=== PATIENT | male | born 1940 | race Caucasian/White ===

== ENCOUNTER → 2016-07-10 | Outpatient (CLI) | payer BC ==
[~2016-07-10] MED LIST: AMOX500C3 PO; ASPI81TA28 PO; CEFD1CAP14 PO; DXY100 PO; LAMO100T PO; LAMO25TA PO; LSN5 PO; OXYC-57 PO; PLV75 PO
[2016-07-10 12:11] LABS: BASO % 0.9 %; BASO ABS # 0.06 K/uL (0-0.2); COMPLETE YES; EOS % 3.1 %; HEMATOCRIT 44.8 % (42-52); IG% 0.1 %; LYMPH % 31.9 %; LYMPH ABS # 2.15 K/uL (1.2-3.4); MEAN CELL VOLUME 92.9 fL (80-100); MEAN CORPUSCULAR HEMOGLOBIN 32.2 pg (25-34); MEAN CORPUSCULAR HGB CONC 34.6 g/dl (32-36); MEAN PLATELET VOLUME 10.2 fL (7.4-10.4); MONO % 10.8 %; NEUT % 53.2 %; PLATELET COUNT 176 K/uL (130-400); RED BLOOD COUNT 4.82 M/uL (4.7-6.1); WHITE BLOOD COUNT 6.74 K/uL (4.8-10.8)
[2016-07-10 12:24] LABS: ALT/SGPT 23 U/L (12-78); AST/SGOT 17 U/L (15-37); BLOOD UREA NITROGEN 15 mg/dl (7-18); BUN/CREATININE RATIO 12.6 (10-20); CALCIUM 8.8 mg/dl (8.5-10.1); CARBON DIOXIDE 30 mmol/L (21-32); CHLORIDE 105 mmol/L (98-107); GLUCOSE 82 mg/dl (70-99); SODIUM 141 mmol/L (136-145)
[2016-07-10 12:35] LABS: ALB/GLOB RATIO 1.3 (0.9-2); ALKALINE PHOSPHATASE 68 U/L (45-117); CHOLESTEROL 207 mg/dl (0-200); CHOLESTEROL/HDL RATIO 3.6; HDL CHOLESTEROL 57 mg/dl; LDL CHOLESTEROL CALCULATED 128 mg/dl; TRIGLYCERIDES 108 mg/dl (0-150); VERY LOW DENSITY LIPOPROT CALC 22 mg/dl
--- NOTE | 2016-07-15 12:33 | CODING QUERY MEDICAL NECESSITY ---
SUPPORTING DIAGNOSIS NEEDED A supporting diagnosis is required for the test/procedure performed on this patient in order for us to be reimbursed by the patient's insurance. Please provide a supporting diagnosis for the following test/procedure listed below next to the test name along with your signature. *If there is no additional diagnosis for this patient that would support the following test/procedure please document that below next to the test/procedure. Test(s)/Procedure(s) that require a supporting diagnosis: * PSA DIAGNOSIS: * DOS: 07/10/16 Provider Signature: Date: Thank you Tammy Reina [employer] Once completed, please kindly fax back to [phone] For questions please call [phone]
== END | disposition home or self-care (01) ==
LOC: C.LAB 11:33
PROVIDERS: ATTEND Internal Medicine Pulmonary Disease
DX: Z00.00 Encounter for general adult medical examination without abnormal findings (principal); E78.00 Pure hypercholesterolemia, unspecified; I63.9 Cerebral infarction, unspecified; F41.8 Other specified anxiety disorders; Z80.42 Family history of malignant neoplasm of prostate

== ENCOUNTER → 2016-07-25 | Outpatient (CLI) | payer BC ==
[2016-07-25 14:55] LABS: MANUAL MICROSCOPIC REQUIRED? NO; REVIEW REQ? NO; URINE APPEARANCE CLEAR (CLEAR); URINE BILIRUBIN NEG (NEG); URINE COLOR YELLOW; URINE EPITHELIAL CELL AUTO 0-5 /lpf (0-5); URINE NITRITE NEG (NEG); URINE SPECIFIC GRAVITY 1.017 (1.000-1.030); UROBILINOGEN NEG (NEG); ZZUR CULT IF INDIC CLEAN CATCH NO
== END | disposition home or self-care (01) ==
LOC: C.LAB1850 13:53
PROVIDERS: ATTEND Internal Medicine Pulmonary Disease
DX: N28.1 Cyst of kidney, acquired (principal); R35.0 Frequency of micturition

== ENCOUNTER → 2016-07-26 | Outpatient (CLI) | payer BC ==
--- NOTE | 2016-07-26 12:18 | DIAGNOSTIC IMAGING REPORT ---
ABDOMINAL ULTRASOUND COMPLETE HISTORY: N28.1 Renal cyst, [id number] Increased frequency of urination. COMPARISON: Chest abdomen pelvis CTA 03/02/2013. FINDINGS: Pancreas: The pancreas demonstrates a normal echotexture. Liver: The liver is echogenic consistent with fatty change. Gallbladder: There is a 5 mm polyp versus stone within the neck of the gallbladder. No gallbladder wall thickening. CBD: 5 mm. Kidneys: No hydronephrosis. There is a 2.1 cm cyst within the right kidney. Spleen: Normal in size. Aorta: Proximal and distal aorta are obscured by bowel. Mid abdominal aorta is normal in caliber. IVC: Patent. Miscellaneous: The bladder is unremarkable IMPRESSION: 1. A 2.1 cm right renal cyst. 2. A 5 mm stone versus polyp near the gallbladder neck. 3. Hepatic steatosis. Electronically signed by: Aldair Garland M.D. 07/26/2016 12:16 PM Dictated Date/Time: 07/26/2016 12:13 PM
== END | disposition home or self-care (01) ==
LOC: C.ULTR 09:32
PROVIDERS: ATTEND Internal Medicine Pulmonary Disease
DX: R35.0 Frequency of micturition (principal); N28.1 Cyst of kidney, acquired; K76.0 Fatty (change of) liver, not elsewhere classified

== ENCOUNTER 2016-09-11 21:58 | Inpatient (IN) | payer BC, OTHER ==
[~2016-09-11] VITALS: Ht 177.8 cm; Wt 80.0 kg
[~2016-09-11 21:58] MED LIST changes: -AMOX500C3 PO; -ASPI81TA28 PO; -CEFD1CAP14 PO; -LAMO25TA PO; -OXYC-57 PO
[2016-09-11] MEDS ORDERED: ASPI81TA28 PO (22:37)
[2016-09-11] MEDS ORDERED: AMOX500C3 PO (22:37)
[2016-09-11] MEDS ORDERED: SODIUM CHLORIDE 0.9% 1000ML 1,000 ML IV SCH (22:59)
[2016-09-11 23:21] LABS: BASO % 0.7 %; BASO ABS # 0.06 K/uL (0-0.2); COMPLETE YES; EOS % 2.6 %; HEMATOCRIT 44.2 % (42-52); IG% 0.2 %; LYMPH % 33.4 %; LYMPH ABS # 3.03 K/uL (1.2-3.4); MEAN CELL VOLUME 90.9 fL (80-100); MEAN CORPUSCULAR HEMOGLOBIN 32.3 pg (25-34); MEAN CORPUSCULAR HGB CONC 35.5 g/dl (32-36); MONO % 10.8 %; NEUT % 52.3 %; PLATELET COUNT 193 K/uL (130-400); RED BLOOD COUNT 4.86 M/uL (4.7-6.1); WHITE BLOOD COUNT 9.06 K/uL (4.8-10.8)
[2016-09-11 23:31] LABS: BLOOD UREA NITROGEN 19 mg/dl (7-18); BUN/CREATININE RATIO 17.6 (10-20); CALCIUM 9.2 mg/dl (8.5-10.1); CARBON DIOXIDE 29 mmol/L (21-32); CHLORIDE 105 mmol/L (98-107); GLUCOSE 110 mg/dl (70-99); SODIUM 142 mmol/L (136-145)
[2016-09-11 23:33] LABS: INR 0.9 (0.9-1.1); PARTIAL THROMBOPLASTIN RATIO 1.1; PROTHROMBIN TIME (PATIENT) 10.1 SECONDS (9.0-12.0)
[2016-09-12] MEDS ORDERED: MoRPHine SULFATE 2 MG/ML CARP IV PRN (00:30)
[2016-09-12] MEDS ORDERED: MAGNESIUM HYDROXIDE SUSP 30 ML UDC PO PRN (00:30)
[2016-09-12] MEDS ORDERED: NITROGLYCERIN 0.4 MG SL PER TAB CHARGE SL PRN (00:30)
[2016-09-12] MEDS ORDERED: POLYETHYLENE (MIRALAX) 17 GM PACK PO PRN (00:30)
[2016-09-12] MEDS ORDERED: ALUMINUM/MAGNESIUM/SIMETH (MAALOX MAX) 30 ML UDC PO PRN (00:30)
[2016-09-12] MEDS ORDERED: ACETAMINOPHEN 325 MG TAB PO PRN (00:30)
[2016-09-12] MEDS ORDERED: ONDANSETRON INJ 2 MG/ML 2 ML VIAL IV PRN (00:30)
--- NOTE | 2016-09-12 01:21 | History and Physical ---
History & Physical Date & Time of Service: Sep 12, 2016 at 01:00 Chief Complaint: Chest Pains, Left Arm Pain And Numbness Of Face Primary Care Physician: Keith Smith M.D. History of Present Illness Source: patient, family This is a 75 y/o M with a pmh of CVA, seizures, Neuropathy, Aortic valve replacement and aortic aneurysm repair who presents after an episode of left arm pain and left periorbital/temporal numbness lasting about an hour. He reports that he was sitting in a chair when this started and the pain moved up his left shoulder. He was concerned about a heart attack. Subsequently, his legs got weak. He denies chest pain, shortness of breath, new weakness of extremities, bowel/bladder incontinence, vision changes, dysphagia. He has a history of a CVA in 2012 and has had multiple visits thereafter for TIA symptoms. He also does have a vague history of seizures for which he was started on Keppra. He reports that he about a month ago, he reduced his dosing in an effort to feel less "loopy" but it made him more weak and unstable; he is now back on his regular dosing. He also was recently treated for an otitis media- just finished his course of amoxicillin. He was treated for Lyme's disease a few months ago. 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 Never smoker Alcohol occasional Past Medical/Surgical History Medical Problems: (1) Appendectomy Status: Resolved (2) Heart disease Status: Chronic (3) Hernia repair Status: Resolved (4) Left-eye droop Status: Chronic (5) PURE HYPERCHOLESTEROLEM Status: Chronic (6) Repair of rotator cuff by suture Status: Resolved (7) Seizure Status: Resolved (8) TIA (transient ischemic attack) Status: Resolved (9) TRANS CEREB ISCHEMIA NOS Status: Resolved (10) Weakness Status: Resolved Surgical Problems: (1) H/O aortic aneurysm repair Status: Resolved (2) H/O aortic valve replacement Status: Resolved Family History Cancer Heart disease Social History Smoking Status: Never Smoker Alcohol Use: occasionally Drug Use: none Marital Status: Housing status: lives with family Occupational Status: retired Immunizations History of Influenza Vaccine: Yes Influenza Vaccine Date: Feb 07, 2014 History of Tetanus Vaccine?: Unknown History of Pneumococcal: Unknown Pneumococcal Date: Mar 17, 2013 History of Hepatitis B Vaccine: Unknown Multi-Drug Resistant Organisms History of MDRO: No Allergies Coded Allergies: Codeine (Verified Adverse Reaction, Intermediate, GI SYMPTOMS, 09/11/16) Home Medications Scheduled Aspirin (Aspirin Ec), 81 MG PO QAM Cefdinir (Omnicef), 300 MG PO Q12H Lamotrigine (Lamictal), 100 MG PO BID Review of Systems Constitutional: + weakness, No chills, No fever, No sweats, No weight loss Eyes: No worsening of vision Respiratory: No cough, No dyspnea at rest, No dyspnea on exertion, No shortness of breath, No sputum, No wheezing Cardiovascular: No PND, No chest pain, No edema, No orthopnea Abdomen: + constipation, No diarrhea, No nausea, No pain, No vomiting Genitourinary - Male: No dysuria, No hematuria, No urinary frequency, No urinary urgency Neurologic: + numbness/tingling (left jillian-orbital), No balance problems, No paralysis, No vertigo, No weakness Physical Exam Vital Signs Date Time Temp Pulse Resp B/P Pulse Ox O2 Delivery O2 Flow Rate FiO2 09/11/16 23:54 70 20 127/80 95 Room Air 09/11/16 23:07 98 Room Air 09/11/16 22:32 76 09/11/16 22:14 98 Room Air 09/11/16 22:02 36.6 87 18 148/87 95 Room Air General Appearance: no apparent distress Head: normocephalic, atraumatic Eyes: normal inspection, PERRL, EOMI ENT: hearing grossly normal Neck: supple, no adenopathy, thyroid normal Respiratory/Chest: lungs clear, normal breath sounds, no respiratory distress, no accessory muscle use Cardiovascular: regular rate, rhythm, no edema, + systolic murmur (2/6) Abdomen/GI: normal bowel sounds, non tender, soft Back: normal inspection, no CVA tenderness, normal range of motion Extremities/Musculoskelatal: no calf tenderness Neurologic/Psych: 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 tested, no motor/sensory deficits, alert, normal reflexes, oriented x 3, + pertinent finding (left eyelid drooping - preexisting from previous stroke) Diagnostics Laboratory Results Results Past 24 Hours Test 09/11/16 22:33 09/11/16 22:35 Range/Units White Blood Count 9.06 4.8-10.8 K/uL Red Blood Count 4.86 4.7-6.1 M/uL Hemoglobin 15.7 14.0-18.0 g/dL Hematocrit 44.2 42-52 % Mean Corpuscular Volume 90.9 80-100 fL Mean Corpuscular Hemoglobin 32.3 25-34 pg Mean Corpuscular Hemoglobin Concent 35.5 32-36 g/dl Platelet Count 193 130-400 K/uL Mean Platelet Volume 10.0 7.4-10.4 fL Neutrophils (%) (Auto) 52.3 % Lymphocytes (%) (Auto) 33.4 % Monocytes (%) (Auto) 10.8 % Eosinophils (%) (Auto) 2.6 % Basophils (%) (Auto) 0.7 % Neutrophils # (Auto) 4.73 1.4-6.5 K/uL Lymphocytes # (Auto) 3.03 1.2-3.4 K/uL Monocytes # (Auto) 0.98 0.11-0.59 K/uL Eosinophils # (Auto) 0.24 0-0.5 K/uL Basophils # (Auto) 0.06 0-0.2 K/uL RDW Standard Deviation 45.8 36.4-46.3 fL RDW Coefficient of Variation 13.8 11.5-14.5 % Immature Granulocyte % (Auto) 0.2 % Immature Granulocyte # (Auto) 0.02 0.00-0.02 K/uL Prothrombin Time 10.1 9.0-12.0 SECONDS Prothromb Time International Ratio 0.9 0.9-1.1 Activated Partial Thromboplast Time 27.3 21.0-31.0 SECONDS Partial Thromboplastin Ratio 1.1 Sodium Level 142 136-145 mmol/L Potassium Level 4.0 3.5-5.1 mmol/L Chloride Level 105 98-107 mmol/L Carbon Dioxide Level 29 21-32 mmol/L Anion Gap 8.0 3-11 mmol/L Blood Urea Nitrogen 19 7-18 mg/dl Creatinine 1.10 0.60-1.40 mg/dl Est Creatinine Clear Calc Drug Dose 59.9 ml/min Estimated GFR () 75.7 Estimated GFR (Non- 65.3 BUN/Creatinine Ratio 17.6 10-20 Random Glucose 110 70-99 mg/dl Calcium Level 9.2 8.5-10.1 mg/dl Total Creatine Kinase 97 39-308 U/L Creatine Kinase MB 1.0 0.5-3.6 ng/ml Creatine Kinase MB Ratio 1.0 0-3.0 Troponin I < 0.015 0-0.045 ng/ml Impression Assessment and Plan This is a 75 y/o M who presents with left arm pain and left facial/periorbital numbness concerning for TIA vs. ACS vs. DVT vs. Infection (h/o of aortic valve repair, SBE?- no signs of active infection presently) etc Left arm pain, has subsided for the most part - Doppler USG - MRI pending - no acute findings on head CT - ECHO pending - Will hold on MRA/CT Angio- since he had this in February - Carotid USG- did have some plaques noted at the bifurcation on CTA - Also will trend Troponins x 3 - Admit to tele - Neuro checks - recheck lyme titers h/o seizures continue Keppra VTE Prophylaxis VTE Risk Assessment Done? Y/N: Yes Risk Level: Moderate Assessment and Plan Attending Addendum: I have physically seen and examined this patient, have directed their medical care, have supervised the medical residents activities, and agree with the H&P as noted above, with the following changes: NONE
[2016-09-12 01:22] LABS: LYME DISEASE AB IGG NEG (NEG)
[2016-09-12 01:25] LABS: LYME DISEASE AB IGM EQUIVOCAL (NEG)
--- NOTE | 2016-09-12 01:25 | EMERGENCY ROOM VISIT NOTE ---
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 Skin warm, pink, dry in triage. No noted s/s of distress. History of Present Illness The patient is a 75 year old male who presents to the Emergency Room with complaints of left-sided facial tingling and numbness with left bicep tingling and numbness and difficulty with ambulation for the past half hour. Patient had a stroke and TIAs in the past. Symptoms feel similar. Patient does have some left sided facial droop from his previous CVA. He follows with Dr. Parada from neurology. He is on a baby aspirin. Patient denies chest pain, dyspnea, fever, chills, diaphoresis, nausea, vomiting, diarrhea, abdominal pain, localized weakness. Review of Systems See HPI for pertinent positives & negatives. A total of 10 systems reviewed and were otherwise negative. Past Medical/Surgical History Medical Problems: (1) Appendectomy (2) Heart disease (3) Hernia repair (4) Left arm pain (5) Left face and left arm tingling (6) Left facial numbness (7) Left-eye droop (8) Left-sided weakness (9) Lyme disease (10) Neurological symptoms (11) PURE HYPERCHOLESTEROLEM (12) Repair of rotator cuff by suture (13) Seizure (14) TIA (transient ischemic attack) (15) TRANS CEREB ISCHEMIA NOS (16) Weakness Surgical Problems: (1) H/O aortic aneurysm repair (2) H/O aortic valve replacement Family History Cancer Heart disease Social History Smoking Status: Never Smoker Alcohol Use: occasionally Drug Use: none Marital Status: Housing Status: lives with family Occupation Status: retired Current/Historical Medications Scheduled Amoxicillin (Amoxil), 500 MG PO BID Aspirin (Aspirin Ec), 81 MG PO QAM Lamotrigine (Lamictal), 100 MG PO BID Allergies Coded Allergies: Codeine (Verified Adverse Reaction, Intermediate, GI SYMPTOMS, 09/11/16) Physical Exam Vital Signs Date Time Temp Pulse Resp B/P Pulse Ox O2 Delivery O2 Flow Rate FiO2 09/11/16 23:54 70 20 127/80 95 Room Air 09/11/16 23:07 98 Room Air 09/11/16 22:32 76 4/5/17 22:14 98 Room Air 09/11/16 22:02 36.6 87 18 148/87 95 Room Air Pain Rating (0-10): 0 Physical Exam VITALS: Vitals are noted on the nurse's note and reviewed by myself. Vital signs stable. GENERAL: Pleasant male anxious-appearing, in no acute distress, nondiaphoretic, well-developed well-nourished. SKIN: The skin was without rashes, erythema, edema, or bruising. There is no tenting of the skin. Capillary reflex less than 2 seconds. HEAD: Normocephalic atraumatic. EARS: External auditory canals clear, tympanic membranes pearly roman without erythema or effusion bilaterally. EYES: Pupils equal round and reactive to light and accommodation. Conjunctivae without injection, sclerae without icterus. Extraocular movements intact. NOSE: Patent, turbinates without inflammation or discharge. No sinus tenderness. MOUTH: Mucous membranes moist. Pharynx without erythema or exudate. Uvula midline. Airway patent. Tongue does not deviate. NECK: Supple without nuchal rigidity. No lymphadenopathy. No thyromegaly. Cervical spine is nontender. No JVD. HEART: Regular rate and rhythm LUNGS: Clear to auscultation bilaterally without wheezes, rales or rhonchi. No dullness to percussion. No retractions or accessory muscle use. ABDOMEN: Positive bowel sounds x 4. Normal tympanic percussion. Soft, nontender, without masses or organomegaly. Eric sign negative. No guarding or rebound tenderness. MUSCULOSKELETAL: No muscle atrophy, erythema, or edema noted. NEURO: Patient was alert and oriented to person place and time. Normal sensation to light and sharp touch. No focal neurological deficits. Cranial nerves II through XII grossly intact. No pronator drift. Cerebellar exam intact. 5 out of 5 strength throughout. Medical Decision & Procedures Laboratory Results 09/11/16 22:33 Red Blood Count 4.86, Mean Corpuscular Volume 90.9, Mean Corpuscular Hemoglobin 32.3, Mean Corpuscular Hemoglobin Concent 35.5, Mean Platelet Volume 10.0, Neutrophils (%) (Auto) 52.3, Lymphocytes (%) (Auto) 33.4, Monocytes (%) (Auto) 10.8, Eosinophils (%) (Auto) 2.6, Basophils (%) (Auto) 0.7, Neutrophils # (Auto ) 4.73, Lymphocytes # (Auto) 3.03, Monocytes # (Auto) 0.98, Eosinophils # (Auto ) 0.24, Basophils # (Auto) 0.06 09/11/16 22:33 Test 09/11/16 22:33 09/11/16 22:35 White Blood Count 9.06 K/uL (4.8-10.8) Red Blood Count 4.86 M/uL (4.7-6.1) Hemoglobin 15.7 g/dL (14.0-18.0) Hematocrit 44.2 % (42-52) Mean Corpuscular Volume 90.9 fL (80-100) Mean Corpuscular Hemoglobin 32.3 pg (25-34) Mean Corpuscular Hemoglobin Concent 35.5 g/dl (32-36) Platelet Count 193 K/uL (130-400) Mean Platelet Volume 10.0 fL (7.4-10.4) Neutrophils (%) (Auto) 52.3 % Lymphocytes (%) (Auto) 33.4 % Monocytes (%) (Auto) 10.8 % Eosinophils (%) (Auto) 2.6 % Basophils (%) (Auto) 0.7 % Neutrophils # (Auto) 4.73 K/uL (1.4-6.5) Lymphocytes # (Auto) 3.03 K/uL (1.2-3.4) Monocytes # (Auto) 0.98 K/uL (0.11-0.59) Eosinophils # (Auto) 0.24 K/uL (0-0.5) Basophils # (Auto) 0.06 K/uL (0-0.2) RDW Standard Deviation 45.8 fL (36.4-46.3) RDW Coefficient of Variation 13.8 % (11.5-14.5) Immature Granulocyte % (Auto) 0.2 % Immature Granulocyte # (Auto) 0.02 K/uL (0.00-0.02) Prothrombin Time 10.1 SECONDS (9.0-12.0) Prothromb Time International Ratio 0.9 (0.9-1.1) Activated Partial Thromboplast Time 27.3 SECONDS (21.0-31.0) Partial Thromboplastin Ratio 1.1 Anion Gap 8.0 mmol/L (3-11) Est Creatinine Clear Calc Drug Dose 59.9 ml/min Estimated GFR () 75.7 Estimated GFR (Non- 65.3 BUN/Creatinine Ratio 17.6 (10-20) Calcium Level 9.2 mg/dl (8.5-10.1) Total Creatine Kinase 97 U/L (39-308) Creatine Kinase MB 1.0 ng/ml (0.5-3.6) Creatine Kinase MB Ratio 1.0 (0-3.0) Troponin I < 0.015 ng/ml (0-0.045) Medications Administered Medications (Trade) Dose Ordered Sig/Nereida Route Start Time Stop Time Status Last Admin Dose Admin Sodium Chloride (Nss 1000ml) 1,000 ml @ 50 mls/hr Q20H IV 09/11/16 22:59 10/11/16 22:58 09/11/16 23:52 50 MLS/HR ED Course Prior records/ancillary studies reviewed and summarized above. Nursing notes reviewed. Additional history obtained from family. The patient's history was concerning for difficulty with ambulation, left-sided facial numbness and tingling in left bicep numbness and tingling Differential diagnosis: Etiologies such as metabolic, infection, hypo/hyperglycemia, electrolyte abnormalities, cardiac sources, intracerebral event, toxicologic, neurologic, as well as others were entertained. Physical examination: As above. ER treatment provided: IV Lock On reassessment the patient felt better. Diagnostics interpretation by me: ECG: Normal sinus, normal intervals, no acute ST-T wave changes. Impression normal sinus interpreted by myself The labs revealed troponin. Imaging studies: Head CT was read by stat radiology with no acute stroke Consultation: A consultation was placed with the hospitalist, Dr. Delacruz. The case was discussed and diagnostics were reviewed. The patient was evaluated in the ER for further treatment. Exam and history seem concerning for possible TIA. Patient had TIAs and strokes in the past. He will be evaluated by medicine for further evaluation and workup. MRI is pending. He had no clinical deficits on exam. He had 5 out of 5 strength throughout. Patient is agreeable to treatment plan for admission. By the evaluation outlined above emergent etiologies such as infection, electrolyte abnormalities, cardiac sources, intracerebral event, toxologic abnormalities blood glucose, metabolic, as well as others were deemed relatively unlikely. The pt informed about the findings as listed above. All questions were answered and pleased with the treatment. Case reviewed with my attending Medical Decision As above Impression Primary Impression: TIA (transient ischemic attack) Departure Information Dispostion Being Evaluated By Hospitalist Condition FAIR Referrals Keith Smith M.D. (PCP) Patient Instructions My [facility] Problem Qualifiers Primary Impression: TIA (transient ischemic attack) Transient cerebral ischemia type: unspecified Qualified Codes: G45.9 - Transient cerebral ischemic attack, unspecified
[2016-09-12 02:00] VITALS: BP 133/89; PULSE 67; TEMP 36.8; O2SAT 95; Ht 177.8 cm; Wt 80.0 kg
[2016-09-12] MEDS ORDERED: GADAVIST IV PRN (02:30)
[2016-09-12 04:00] VITALS: O2SAT 95
[2016-09-12 04:11] VITALS: BP 130/78; PULSE 65; TEMP 36.5; O2SAT 94
--- NOTE | 2016-09-12 06:45 | DIAGNOSTIC IMAGING REPORT ---
CHEST ONE VIEW PORTABLE CLINICAL HISTORY: Stroke mental status change COMPARISON STUDY: 08/24/2015 FINDINGS: Prior median sternotomy. Tortuosity thoracic aorta. Lungs remain clear. IMPRESSION: Chronic and postoperative change. No acute process. Electronically signed by: Jose Smith M.D. 09/12/2016 6:43 AM Dictated Date/Time: 09/12/2016 6:42 AM
--- NOTE | 2016-09-12 06:50 | DIAGNOSTIC IMAGING REPORT ---
HEAD CT NONCONTRAST CT DOSE: 614.27 mGy.cm HISTORY: Mental status change Stroke TECHNIQUE: Multiaxial CT images of the head were performed without the use of intravenous contrast. Comparison: 02/11/2016 Findings: The paranasal sinuses and mastoid air cells are clear. The calvarium and skull base are intact. The ventricles and sulci are within normal limits. There is no mass, hematoma, midline shift, or acute infarct. Impression: No acute intracranial abnormality. Electronically signed by: Jose Smith M.D. 09/12/2016 6:48 AM Dictated Date/Time: 09/12/2016 6:47 AM
--- NOTE | 2016-09-12 07:34 | DIAGNOSTIC IMAGING REPORT ---
BILATERAL CAROTID DOPPLER STUDY HISTORY: Mental status change facial numbness COMPARISON: None. TECHNIQUE: Real-time, grayscale, and color Doppler sonography of the carotid arteries was performed. Imaging reviewed in the transverse and longitudinal planes. All measurements were calculated based on NASCET criteria. FINDINGS: Antegrade flow is seen in the bilateral vertebral arteries. The brachial pressures are hemodynamically similar. Mild plaque formation bilaterally The peak systolic velocity within the right ICA is 61. The right systolic ratio is 0.8. The peak systolic velocity within the left ICA is 64. The left systolic ratio is 0.9. IMPRESSION: No hemodynamically significant stenosis seen within the carotid arteries. Mild atherosclerotic change Electronically signed by: Jose Smith M.D. 09/12/2016 7:32 AM Dictated Date/Time: 09/12/2016 7:31 AM
--- NOTE | 2016-09-12 07:41 | DIAGNOSTIC IMAGING REPORT ---
LEFT UPPER EXTREMITY VENOUS DOPPLER HISTORY: left arm pain, h/o IJ clot, please include IJ distribution COMPARISON STUDY: Left upper extremity venous Doppler 05/25/2015. 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 This is nonocclusive. There is also small focus of chronic nonocclusive thrombus within the left axillary vein. The remaining left upper extremity venous structures are patent. There is a 1.5 cm complex nodule within the left thyroid lobe. The lung. Left cervical lymph node measuring 4 mm in short axis diameter. IMPRESSION: 1. No acute DVT within the left upper extremity. 2. 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 3. There is also small focus of chronic nonocclusive thrombus within the left axillary vein. 4. A 1.5 cm complex nodule within the left lower lobe. Electronically signed by: Aldair Garland M.D. 09/12/2016 7:39 AM Dictated Date/Time: 09/12/2016 7:35 AM
--- NOTE | 2016-09-12 07:46 | DIAGNOSTIC IMAGING REPORT ---
Brain MRI WITH AND WITHOUT CONTRAST HISTORY: Left arm pain. Left facial numbness. TECHNIQUE: Multiplanar multisequence MRI of the brain was performed both before and after the intravenous administration of contrast. COMPARISON STUDY: Brain MRI 02/12/2016. FINDINGS: There is no mass, hematoma, midline shift, or acute infarct. The paranasal sinuses are clear. The mastoid air cells are clear. The ventricles and sulci demonstrate mild age-related involutional changes. Mild T2 hyperintensity seen within the periventricular white matter is nonspecific but suggestive of mild microvascular ischemic changes. The major vascular flow voids at the skull base are well-maintained. No abnormal enhancement. IMPRESSION: No significant change compared to the prior study. No acute intracranial abnormality. Electronically signed by: Aldair Garland M.D. 09/12/2016 7:44 AM Dictated Date/Time: 09/12/2016 7:40 AM
[2016-09-12 07:49] VITALS: BP 135/83; PULSE 61; TEMP 36.5; O2SAT 95
[2016-09-12] MEDS ORDERED: ENOXAPARIN 40 MG/0.4 ML SYR SC SCH (09:00)
[2016-09-12] MEDS ORDERED: ASPIRIN 81 MG ECTAB PO SCH (09:00)
[2016-09-12 11:17] VITALS: BP 141/88; PULSE 66; TEMP 36.7; O2SAT 93
--- NOTE | 2016-09-12 11:35 | Discharge Instructions ---
Discharge Instructions Date of Service Sep 12, 2016. Admission Reason for Admission: Left Arm Pain, Left Face And Left Arm Tingling, Discharge Discharge Diagnosis / Problem: left arm pain and periorbital numbness and weakness Discharge Goals Goal(s): Decrease discomfort, Improve disease control, Diagnostic testing, Therapeutic intervention Activity Recommendations Activity Limitations: resume your previous activity . Instructions / Follow-Up Instructions / Follow-Up You came in to the hospital for left arm pain and left face numbness. All the work ups were negative. Please continue taking all your medication. Follow up with Neurology Dr. Parada in 1 week or earlier if needed. Current Hospital Diet Patient's current hospital diet: AHA Diet (Heart Healthy) Discharge Diet Recommended Diet: Regular Diet Pending Studies Studies pending at discharge: no Laboratory Results Lipid Panel Test 07/10/16 11:45 Range/Units Triglycerides Level 108 0-150 mg/dl Cholesterol Level 207 H 0-200 mg/dl HDL Cholesterol 57 mg/dl Cholesterol/HDL Ratio 3.6 LDL Cholesterol, Calculated 128 mg/dl Medical Emergencies . Who to Call and When: Medical Emergencies: If at any time you feel your situation is an emergency, please call 911 immediately. . Non-Emergent Contact Non-Emergency issues call your: Primary Care Provider . . "Provider Documentation" section prepared by Lou Linn. VTE Core Measure Inpt VTE Proph given/why not?: Madelaine Gee, ONEL's
[2016-09-12 11:41] VITALS: BP 141/88; PULSE 66; TEMP 36.7; O2SAT 93
[2016-09-12] MEDS ORDERED: CEFD1CAP14 PO (12:15)
--- NOTE | 2016-09-12 14:12 | ECHOCARDIOGRAM REPORT ---
*NOTICE TO RECEIVING [employer] This information is strictly Confidential and protected under [place] law. [place] law prohibits you from making any further disclosure of this information unless further disclosure is expressly permitted by the written consent of the person to whom it pertains or is authorized by law. A general authorization for the release of medical or other information is not sufficient for this purpose. Hospital accepts no responsibility if the information is made available to any other person, INCLUDING THE PATIENT. Interpretation Summary * Name: BRODERICK ARMANDO Study Date: 09/12/2016 07:17 AM BP: 130/78 mmHg * Patient Location: C.2T\S\S241\S\2 HR: 65 * : 1940 (M/d/yyyy) Gender: Male Height: 70 in * Age: 75 yrs Ethnicity: [place] Weight: 176 lb * Ordering Physician: Delia Su * Referring Physician: Self, Referred * Performed By: Elizabeth Ellis RCS * * Reason For Study: Chest Pain * BSA: 2.0 m2 * Normal biventricular systolic function. * Mild concentric left ventricular hypertrophy. * Left ventricular diastolic dysfunction. * Mild left atrial dilatation. * Moderate aortic root dilatation. * Aortic root and ascending aortic graft. * Properly functioning bioprosthetic aortic valve. * Moderate mitral and tricuspid regurgitation. * Mild pulmonary hypertension. Procedure Details * A complete two-dimensional transthoracic echocardiogram was performed (2D, M-mode, Doppler and color flow Doppler). Left Ventricle * The left ventricle is normal in size. * There is mild concentric left ventricular hypertrophy. * Ejection Fraction = 65-70%. * Left ventricular systolic function is normal. * Diastolic dysfunction, Grade II (pseudonormalization pattern). * The left ventricular wall motion is normal. Right Ventricle * The right ventricle is normal in size and function. Atria * The left atrium is mildly dilated. * Right atrial size is normal. * No ASD detected; PFO is not assessed. Mitral Valve * There is mild mitral annular calcification. * The mitral valve leaflets appear thickened, but open well. * There is no mitral valve stenosis. * There is moderate mitral regurgitation. Tricuspid Valve * The tricuspid valve is not well visualized, but is grossly normal. * There is mild to moderate tricuspid regurgitation. Aortic Valve * No aortic regurgitation is present. * There is a bioprosthetic aortic valve. * The gradient is normal for this prosthetic aortic valve. Pulmonic Valve * The pulmonic valve is not well visualized. * The pulmonary valve is inadequately visualized, but the Doppler data is adequate for interpretation. * There is no pulmonic valvular stenosis. * There is no significant pulmonary regurgitation. Great Vessels * Moderate aortic root dilatation. * Evidence of ascending aortic graft. Pericardium/Pleural * There is no pericardial effusion. Great Vessels * Normal inferior vena cava diameter and respiratory variation suggests normal central venous pressure. MMode 2D Measurements and Calculations IVSd 1.2 cm IVSs 1.3 cm LVIDd 4.1 cm LVIDs 2.3 cm LVPWd 1.2 cm LVPWs 1.3 cm IVS/LVPW 1.0 FS 43.8 % EDV(Teich) 73.0 ml ESV(Teich) 17.9 ml EF(Teich) 75.5 % EDV(cubed) 67.5 ml ESV(cubed) 12.0 ml EF(cubed) 82.3 % % IVS thick 8.5 % % LVPW thick 10.2 % LV mass(C)d 165.1 grams LV mass(C)dI 83.5 grams/m\S\2 LV mass(C)s 86.1 grams LV mass(C)sI 43.6 grams/m\S\2 CO(Teich) 3.4 l/min CI(Teich) 1.7 l/min/m\S\2 SV(Teich) 55.2 ml SI(Teich) 27.9 ml/m\S\2 CO(cubed) 3.4 l/min CI(cubed) 1.7 l/min/m\S\2 SV(cubed) 55.6 ml SI(cubed) 28.1 ml/m\S\2 Ao root diam 4.1 cm Ao root area 13.0 cm\S\2 ACS 1.7 cm LA dimension 4.1 cm LA/Ao 1.0 LVAd ap4 31.9 cm\S\2 LVLd ap4 9.0 cm EDV(MOD-sp4) 92.0 ml LVAs ap4 17.1 cm\S\2 LVLs ap4 7.7 cm ESV(MOD-sp4) 32.0 ml EF(MOD-sp4) 65.2 % LVAd ap2 28.4 cm\S\2 LVLd ap2 8.7 cm EDV(MOD-sp2) 76.0 ml LVAs ap2 17.9 cm\S\2 LVLs ap2 7.8 cm ESV(MOD-sp2) 33.0 ml EF(MOD-sp2) 56.6 % CO(MOD-sp4) 3.7 l/min CI(MOD-sp4) 1.9 l/min/m\S\2 SV(MOD-sp4) 60.0 ml SI(MOD-sp4) 30.3 ml/m\S\2 CO(MOD-sp2) 2.7 l/min CI(MOD-sp2) 1.3 l/min/m\S\2 SV(MOD-sp2) 43.0 ml SI(MOD-sp2) 21.8 ml/m\S\2 Doppler Measurements and Calculations MV E max ciro 63.9 cm/sec MV A max ciro 55.2 cm/sec MV E/A 1.2 MV P1/2t max ciro 81.1 cm/sec MV P1/2t 57.7 msec MVA(P1/2t) 3.8 cm\S\2 MV dec slope 411.8 cm/sec\S\2 MV dec time 0.28 sec Ao V2 max 165.2 cm/sec Ao max PG 10.9 mmHg Ao max PG (full) 9.6 mmHg LV V1 max PG 1.3 mmHg LV V1 max 57.2 cm/sec PA V2 max 65.8 cm/sec PA max PG 1.7 mmHg TR max ciro 234.6 cm/sec
--- NOTE | 2016-09-12 17:08 | Discharge Summary ---
Discharge Summary Date of Service Sep 12, 2016. (Lou Linn MD) Discharge Summary Admission Date: Sep 12, 2016 at 00:42 Discharge Date: Sep 12, 2016 Discharge Disposition: Home Principal Diagnosis: left arm pain, left periorbital and temporal numbness/ tingling Problems/Secondary Diagnoses: possible cervical radiculopathy Immunizations: Have You Had Influenza Vaccine: Yes Influenza Vaccine Date: Feb 07, 2014 History of Tetanus Vaccine?: Unknown History of Pneumococcal: Unknown Pneumococcal Date: Mar 17, 2013 History of Hepatitis B Vaccine: Unknown Procedures: Patient Name: BRODERICK ARMANDO Unit Number: [id number] Dictated: 09/12/16646 Transcribed: 09/12/16646 MS Printed Date/Time: [~ rep prt dt]/[~ rep prt tm] [~ rep ct labl] - [~ rep ct ivnm] [facility] [place] [address] Dictated: 09/12/16646 Transcribed: 09/12/16646 MS Printed Date/Time: [~ rep prt dt]/[~ rep prt tm] [~ rep ct labl] - [~ rep ct ivnm] [~ rep ct add3]] HEAD CT NONCONTRAST CT DOSE: 614.27 mGy.cm HISTORY: Mental status change Stroke TECHNIQUE: Multiaxial CT images of the head were performed without the use of intravenous contrast. Comparison: 02/11/2016 Findings: The paranasal sinuses and mastoid air cells are clear. The calvarium and skull base are intact. The ventricles and sulci are within normal limits. There is no mass, hematoma, midline shift, or acute infarct. Impression: No acute intracranial abnormality. Electronically signed by: Jose Smith M.D. 09/12/2016 6:48 AM Dictated Date/Time: 09/12/2016 6:47 AM The status of this report is Signed. Draft = Not yet reviewed or approved by Radiologist. Signed = Reviewed and approved by Radiologist. <AttendingPhy>José Manuel Reed M.D.</AttendingPhy> <FamilyPhy>Carley Parada M.D.</FamilyPhy> <PrimaryPhy>Broderick Smith M.D.</PrimaryPhy> <UnitNumber> [id number]</UnitNumber> <VisitNumber>[id number]</VisitNumber> <PatientName> BRODERICK ARMANDO</PatientName> <DateOfBirth>1940</DateOfBirth> <Location>C.2T< /Location> <ServiceDate>09/11/16</ServiceDate> <MNE>ESINDI</MNE> <OrderingPhy> Divya Prado PA-C</OrderingPhy> <OrderingPhyMNE>f rep ord dr hightower</ OrderingPhyMNE> <DictatingPhyMNE>f rep dict dr hightower</DictatingPhyMNE> <CCListMNE> f rep ct mne</CCListMNE> <AdmittingPhyMNE>f pt admit dr hightower</AdmittingPhyMNE> < AttendingPhyMNE>f pt attend dr hightower</AttendingPhyMNE> <ConsultingPhyMNE>f pt consult dr hightower</ConsultingPhyMNE> <FamilyPhyMNE>f pt fam dr hightower</FamilyPhyMNE> <OtherPhyMNE>f pt other dr hightower</OtherPhyMNE> < PrimaryPhyMNE>f pt prim care dr hightower</PrimaryPhyMNE> <ReferringPhyMNE>f pt referring dr hightower</ReferringPhyMNE> Patient Name: BRODERICK ARMANDO Unit Number: [id number] Dictated: 09/12/16641 Transcribed: 09/12/16641 MS Printed Date/Time: [~ rep prt dt]/[~ rep prt tm] [~ rep ct labl] - [~ rep ct ivnm] [facility] [place] [address] Dictated: 09/12/16641 Transcribed: 09/12/16641 MS Printed Date/Time: [~ rep prt dt]/[~ rep prt tm] [~ rep ct labl] - [~ rep ct ivnm] CHEST ONE VIEW PORTABLE CLINICAL HISTORY: Stroke mental status change COMPARISON STUDY: 08/24/2015 FINDINGS: Prior median sternotomy. Tortuosity thoracic aorta. Lungs remain clear. IMPRESSION: Chronic and postoperative change. No acute process. Electronically signed by: Jose Smith M.D. 09/12/2016 6:43 AM Dictated Date/Time: 09/12/2016 6:42 AM The status of this report is Signed. Draft = Not yet reviewed or approved by Radiologist. Signed = Reviewed and approved by Radiologist. <AttendingPhy>José Manuel Reed M.D.</AttendingPhy> <FamilyPhy>Carley Parada M.D.</FamilyPhy> <PrimaryPhy>Broderick Smith M.D.</PrimaryPhy> <UnitNumber> [id number]</UnitNumber> <VisitNumber>[id number]</VisitNumber> <PatientName> BRODERICK ARMANDO</PatientName> <DateOfBirth>1940</DateOfBirth> <Location>C.2T< /Location> <ServiceDate>09/11/16</ServiceDate> <MNE>ESINDI</MNE> <OrderingPhy> Divya Prado PA-C</OrderingPhy> <OrderingPhyMNE>f rep ord dr hightower</ OrderingPhyMNE> <DictatingPhyMNE>f rep dict dr hightower</DictatingPhyMNE> <CCListMNE> f rep ct mne</CCListMNE> <AdmittingPhyMNE>f pt admit dr hightower</AdmittingPhyMNE> < AttendingPhyMNE>f pt attend dr hightower</AttendingPhyMNE> <ConsultingPhyMNE>f pt consult dr hightower</ConsultingPhyMNE> <FamilyPhyMNE>f pt fam dr hightower</FamilyPhyMNE> <OtherPhyMNE>f pt other dr hightower</OtherPhyMNE> < PrimaryPhyMNE>f pt prim care dr hightower</PrimaryPhyMNE> <ReferringPhyMNE>f pt referring dr hightower</ReferringPhyMNE> Patient Name: BRODERICK ARMANDO Unit Number: [id number] Dictated: 09/12/16739 Transcribed: 09/12/16739 VELMA Printed Date/Time: [~ rep prt dt]/[~ rep prt tm] [~ rep ct labl] - [~ rep ct ivnm] [facility] [place] [address] Dictated: 09/12/16739 Transcribed: 09/12/16739 CRISTIAN Printed Date/Time: [~ rep prt dt]/[~ rep prt tm] [~ rep ct labl] - [~ rep ct ivnm] Brain MRI WITH AND WITHOUT CONTRAST HISTORY: Left arm pain. Left facial numbness. TECHNIQUE: Multiplanar multisequence MRI of the brain was performed both before and after the intravenous administration of contrast. COMPARISON STUDY: Brain MRI 02/12/2016. FINDINGS: There is no mass, hematoma, midline shift, or acute infarct. The paranasal sinuses are clear. The mastoid air cells are clear. The ventricles and sulci demonstrate mild age-related involutional changes. Mild T2 hyperintensity seen within the periventricular white matter is nonspecific but suggestive of mild microvascular ischemic changes. The major vascular flow voids at the skull base are well-maintained. No abnormal enhancement. IMPRESSION: No significant change compared to the prior study. No acute intracranial abnormality. Electronically signed by: Aldair Garland M.D. 09/12/2016 7:44 AM Dictated Date/Time: 09/12/2016 7:40 AM The status of this report is Signed. Draft = Not yet reviewed or approved by Radiologist. Signed = Reviewed and approved by Radiologist. <AttendingPhy>José Manuel Reed M.D.</AttendingPhy> <FamilyPhy>Carley Parada M.D.</FamilyPhy> <PrimaryPhy>Broderick Smith M.D.</PrimaryPhy> <UnitNumber> [id number]</UnitNumber> <VisitNumber>[id number]</VisitNumber> <PatientName> BRODERICK ARMANDO Y</PatientName> <DateOfBirth>1940</DateOfBirth> <Location>C.2T< /Location> <ServiceDate>09/11/16</ServiceDate> <MNE>ESINDI</MNE> <OrderingPhy> Divya Prado PA-C</OrderingPhy> <OrderingPhyMNE>f rep ord dr hightower</ OrderingPhyMNE> <DictatingPhyMNE>f rep dict dr hightower</DictatingPhyMNE> <CCListMNE> f rep ct mne</CCListMNE> <AdmittingPhyMNE>f pt admit dr hightower</AdmittingPhyMNE> < AttendingPhyMNE>f pt attend dr hightower</AttendingPhyMNE> <ConsultingPhyMNE>f pt consult dr hightower</ConsultingPhyMNE> <FamilyPhyMNE>f pt fam dr hightower</FamilyPhyMNE> <OtherPhyMNE>f pt other dr hightower</OtherPhyMNE> < PrimaryPhyMNE>f pt prim care dr hightower</PrimaryPhyMNE> <ReferringPhyMNE>f pt referring dr hightower</ReferringPhyMNE> Patient Name: BRODERICK ARMANDO Unit Number: [id number] Dictated: 09/12/16734 Transcribed: 09/12/16734 Dine in Printed Date/Time: [~ rep prt dt]/[~ rep prt tm] [~ rep ct labl] - [~ rep ct ivnm] [facility] [place] [place] [address] Dictated: 09/12/16734 Transcribed: 09/12/16734 Dine in Printed Date/Time: [~ rep prt dt]/[~ rep prt tm] [~ rep ct labl] - [~ rep ct ivnm] LEFT UPPER EXTREMITY VENOUS DOPPLER HISTORY: left arm pain, h/o IJ clot, please include IJ distribution COMPARISON STUDY: Left upper extremity venous Doppler 05/25/2015. 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 This is nonocclusive. There is also small focus of chronic nonocclusive thrombus within the left axillary vein. The remaining left upper extremity venous structures are patent. There is a 1.5 cm complex nodule within the left thyroid lobe. The lung. Left cervical lymph node measuring 4 mm in short axis diameter. IMPRESSION: 1. No acute DVT within the left upper extremity. 2. 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 3. There is also small focus of chronic nonocclusive thrombus within the left axillary vein. 4. A 1.5 cm complex nodule within the left lower lobe. Electronically signed by: Aldair Garland M.D. 09/12/2016 7:39 AM Dictated Date/Time: 09/12/2016 7:35 AM The status of this report is Signed. Draft = Not yet reviewed or approved by Radiologist. Signed = Reviewed and approved by Radiologist. <AttendingPhy>José Manuel Reed M.D.</AttendingPhy> <FamilyPhy>Carley Parada M.D.</FamilyPhy> <PrimaryPhy>Broderick Smith M.D.</PrimaryPhy> <UnitNumber> [id number]</UnitNumber> <VisitNumber>[id number]</VisitNumber> <PatientName> BRODERICK ARMANDO</PatientName> <DateOfBirth>1940</DateOfBirth> <Location>C.2T< /Location> <ServiceDate>09/11/16</ServiceDate> <MNE>ESINDI</MNE> <OrderingPhy> Delia uS MD</OrderingPhy> <OrderingPhyMNE>f rep ord dr hightower</ OrderingPhyMNE> <DictatingPhyMNE>f rep dict dr hightower</DictatingPhyMNE> <CCListMNE> f rep ct mne</CCListMNE> <AdmittingPhyMNE>f pt admit dr hightower</AdmittingPhyMNE> < AttendingPhyMNE>f pt attend dr hightower</AttendingPhyMNE> <ConsultingPhyMNE>f pt consult dr hightower</ConsultingPhyMNE> <FamilyPhyMNE>f pt fam dr hightower</FamilyPhyMNE> <OtherPhyMNE>f pt other dr hightower</OtherPhyMNE> < PrimaryPhyMNE>f pt prim care dr hightower</PrimaryPhyMNE> <ReferringPhyMNE>f pt referring dr hightower</ReferringPhyMNE> Patient Name: BRODERICK ARMANDO Unit Number: [id number] Dictated: 09/12/16730 Transcribed: 09/12/16730 MS Printed Date/Time: [~ rep prt dt]/[~ rep prt tm] [~ rep ct labl] - [~ rep ct ivnm] [facility] Radiology Department [place], [place] [id number] Dictated: 09/12/16730 Transcribed: 09/12/16730 MS Printed Date/Time: [~ rep prt dt]/[~ rep prt tm] [~ rep ct labl] - [~ rep ct ivnm] BILATERAL CAROTID DOPPLER STUDY HISTORY: Mental status change facial numbness COMPARISON: None. TECHNIQUE: Real-time, grayscale, and color Doppler sonography of the carotid arteries was performed. Imaging reviewed in the transverse and longitudinal planes. All measurements were calculated based on NASCET criteria. FINDINGS: Antegrade flow is seen in the bilateral vertebral arteries. The brachial pressures are hemodynamically similar. Mild plaque formation bilaterally The peak systolic velocity within the right ICA is 61. The right systolic ratio is 0.8. The peak systolic velocity within the left ICA is 64. The left systolic ratio is 0.9. IMPRESSION: No hemodynamically significant stenosis seen within the carotid arteries. Mild atherosclerotic change Electronically signed by: Jose Smith M.D. 09/12/2016 7:32 AM Dictated Date/Time: 09/12/2016 7:31 AM The status of this report is Signed. Draft = Not yet reviewed or approved by Radiologist. Signed = Reviewed and approved by Radiologist. <AttendingPhy>José Manuel Reed M.D.</AttendingPhy> <FamilyPhy>Carley Parada M.D.</FamilyPhy> <PrimaryPhy>Broderick Smith M.D.</PrimaryPhy> <UnitNumber> [id number]</UnitNumber> <VisitNumber>[id number]</VisitNumber> <PatientName> BRODERICK ARMANDO Y</PatientName> <DateOfBirth>1940</DateOfBirth> <Location>C.2T< /Location> <ServiceDate>09/11/16</ServiceDate> <MNE>ESINDI</MNE> <OrderingPhy> Delia Su MD</OrderingPhy> <OrderingPhyMNE>f rep ord dr hightower</ OrderingPhyMNE> <DictatingPhyMNE>f rep dict dr hightower</DictatingPhyMNE> <CCListMNE> f rep ct larrye</CCListMNE> <AdmittingPhyMNE>f pt admit dr hightower</AdmittingPhyMNE> < AttendingPhyMNE>f pt attend dr hightower</AttendingPhyMNE> <ConsultingPhyMNE>f pt consult dr hightower</ConsultingPhyMNE> <FamilyPhyMNE>f pt fam dr hightower</FamilyPhyMNE> <OtherPhyMNE>f pt other dr hightower</OtherPhyMNE> < PrimaryPhyMNE>f pt prim care dr hightower</PrimaryPhyMNE> <ReferringPhyMNE>f pt referring dr hightower</ReferringPhyMNE> (Lou Linn MD) Medication Reconciliation New Medications: Cefdinir (Omnicef) 300 Mg Cap 300 MG PO Q12H for 10 Days, #20 CAP Continued Medications: Aspirin (Aspirin Ec) 81 Mg Tab 81 MG PO QAM Lamotrigine (Lamictal) 100 Mg Tab 100 MG PO BID for 30 Days, #60 TAB 2 Refills Discontinued Medications: Amoxicillin (Amoxil) 500 Mg Cap 500 MG PO BID, #21 CAP STARTED 08/28/16 FOR 10 DAYS. LAST DOSE TODAY. Referrals At Discharge Follow up Referrals: Neurologist Referral - Within 1-2 Weeks with Carley Parada M.D. Discharge Exam Patient was seen at the bedside. He states that he is doing better than yesterday. Denies any left arm pain. Complains of neck stiffness, mostly on the left. Denies chest pain, SOB, nausea, vomiting, or any other additional symptoms. Review of Systems: Constitutional: No chills, No fever Respiratory: No cough, No shortness of breath Cardiovascular: No chest pain, No edema Abdomen: No diarrhea, No nausea, No pain, No vomiting Musculoskeletal: No muscle pain Neurologic: + problem reported (chronic b/l neuropathic pain) Integumentary: No rash Physical Exam: General Appearance: WD/WN, no apparent distress Neck: supple, trachea midline Respiratory/Chest: chest non-tender, lungs clear, no respiratory distress, no accessory muscle use Cardiovascular: regular rate, rhythm, no edema, + systolic murmur Abdomen / GI: normal bowel sounds, non tender, soft Extremities: no pedal edema, non-tender Neurologic/Psychiatric: no motor/sensory deficits, alert, normal mood/affect , oriented x 3 Skin: normal color, warm/dry, no rash (Lou Linn MD) persistent numbness on left side of face and ear Review of Systems: Constitutional: No fever Respiratory: No shortness of breath Cardiovascular: No chest pain Physical Exam: General Appearance: no apparent distress ENT: + TM bulging (left), + TM red (left) Respiratory/Chest: lungs clear, no respiratory distress Cardiovascular: regular rate, rhythm Neurologic/Psychiatric: alert, normal mood/affect, normal reflexes, oriented x 3 (Reyna Munson M.D.) Hospital Course This is a 75 y/o male with a PMHx of CVA (2012), multiple TIA symptoms, seizures , Neuropathy, Aortic valve replacement (2013) and aortic aneurysm repair presents to the hospital after an episode of left arm pain and left periorbital /temporal numbness lasting for less than 1 hr. He reports that he was sitting in a chair when he felt the pain on his left arm, which radiates to his L shoulder. Subsequently, his legs got weak. He denies chest pain, shortness of breath, new weakness of extremities, bowel/bladder incontinence, vision changes , dysphagia. He was concerned about stroke which brought him to the hospital. He had CVA in 2012 and has had multiple visits thereafter for TIA symptoms. He also does have a vague history of seizures for which he was started on Keppra. He reports that he about a month ago, he reduced his dosing in an effort to feel less "loopy" but it made him more weak and unstable; he is now back on his regular dosing. He also was recently treated for an otitis media with amoxicillin (today was last dose). He was treated for Lyme's disease a few months ago. 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 Left arm pain/periorbital and temporal numbness and tingling - Patient was admitted for stroke work ups given his complex medical history. Pain of his left arm resolved upon arriving to the ER. He still have numbness and tingling sensation on the periorbital and temporal area. MRI of the brain, head CT, carotid doppler, upper extremity venous doppler and Echo were performed. All the imaging were unremarkable. On Tele overnight he was in sinus rhythm. Dr. Parada was contacted and he thought it was ok to discharge him with follow up appointment with him in the clinic. His symptoms could be 2/2 cervical radiculopathy given the distribution of the pain. It is very less likely to be TIA given all the work ups were negative. Upper Ext venous doppler showed 1.5 cm complex nodule within the left thyroid lobe. This is can follow up further as outpatient. Patient was stable to be discharged and recommended to follow up with Dr. Parada. Otitis Media - Patient was prescribed Cefdinir 300 Mg BID for persistent ear infection. Total Time Spent: Greater than 30 minutes This includes examination of the patient, discharge planning, medication reconciliation, and communication with other providers. (Lou Linn MD) I have reviewed the medical record and performed a history and physical examination of this patient today. I have discussed the case with Dr. Linn. 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 Extensive h/o Seizure Left arm pain resolved. Left facial numbness persists - Neuro work up negative. To f/u with neurology as outpatient. [facility] - negative in 2013 - before valve repair. Persistent Otitis media. Finished 10 days of amoxicillin. Given cefuroxime for 10days. Total Time Spent: Greater than 30 minutes (40) (Reyna Munson M.D.) Discharge Instructions Please refer to the electronic Patient Visit Report (Discharge Instructions) for additional information. (Lou Linn MD) Additional Copies To Carley Parada M.D.; Broderick Smith M.D.
[2016-09-14 10:26] LABS: 18KDIGG BAND NONREACTIVE (NONREACTIVE); 23KDIGG BAND REACTIVE (NONREACTIVE); 23KDIGM BAND REACTIVE (NONREACTIVE); 28KDIGG BAND NONREACTIVE (NONREACTIVE); 30KDIGG BAND NONREACTIVE (NONREACTIVE); 39KDIGG BAND NONREACTIVE (NONREACTIVE); 39KDIGM BAND NONREACTIVE (NONREACTIVE); 41KDIGG BAND REACTIVE (NONREACTIVE); 41KDIGM BAND NONREACTIVE (NONREACTIVE); 45KDIGG BAND NONREACTIVE (NONREACTIVE); 58KDIGG BAND NONREACTIVE (NONREACTIVE); 66KDIGG BAND REACTIVE (NONREACTIVE); 93KDIGG BAND NONREACTIVE (NONREACTIVE)
[2016-10-22] MEDS ORDERED: DXY100 PO (15:48)
[2016-10-22] MEDS ORDERED: LAMO25TA PO (15:48)
[2016-10-22] MEDS ORDERED: OXYC-57 PO (16:01)
== END 2016-09-12 12:41 | disposition home or self-care (01) | DRG 74 ==
LOC: ENRESERVDT → ENRESERVTM → C.EDB 22:00 → C.2T 09-12 00:42
PROVIDERS: ADMIT Hospitalist; ATTEND Family Medicine
DX: M54.12 Radiculopathy, cervical region (principal); R56.9 Unspecified convulsions; G62.9 Polyneuropathy, unspecified; Z95.2 Presence of prosthetic heart valve; Z86.718 Personal history of other venous thrombosis and embolism; Z79.01 Long term (current) use of anticoagulants; E78.00 Pure hypercholesterolemia, unspecified; Z79.82 Long term (current) use of aspirin; E04.1 Nontoxic single thyroid nodule; R20.0 Anesthesia of skin; Z86.73 Personal history of transient ischemic attack (TIA), and cerebral infarction without residual deficits

== ENCOUNTER 2016-10-22 00:21 | Inpatient (IN) | payer BC, OTHER ==
[~2016-10-22] VITALS: Ht 177.8 cm; Wt 83.6 kg
[~2016-10-22 00:21] MED LIST changes: +ASPI81TA28 PO; -DXY100 PO; -LSN5 PO; -PLV75 PO
[2016-10-22 01:09] LABS: BASO % 0.5 %; BASO ABS # 0.02 K/uL (0-0.2); COMPLETE YES; EOS % 0.2 %; HEMATOCRIT 46.3 % (42-52); IG% 0.2 %; LYMPH % 12.8 %; LYMPH ABS # 0.56 K/uL (1.2-3.4); MEAN CELL VOLUME 92.6 fL (80-100); MEAN CORPUSCULAR HEMOGLOBIN 32.2 pg (25-34); MEAN CORPUSCULAR HGB CONC 34.8 g/dl (32-36); MEAN PLATELET VOLUME 9.2 fL (7.4-10.4); MONO % 7.5 %; NEUT % 78.8 %; PLATELET COUNT 123 K/uL (130-400); WHITE BLOOD COUNT 4.38 K/uL (4.8-10.8)
[2016-10-22 01:16] LABS: PROTHROMBIN TIME (PATIENT) 10.3 SECONDS (9.0-12.0)
[2016-10-22] MEDS ORDERED: ACETAMINOPHEN 500 MG TAB PO STA (01:21)
[2016-10-22 01:26] LABS: ALT/SGPT 80 U/L (12-78); AST/SGOT 86 U/L (15-37); BLOOD UREA NITROGEN 15 mg/dl (7-18); BUN/CREATININE RATIO 12.2 (10-20); CARBON DIOXIDE 30 mmol/L (21-32); CHLORIDE 103 mmol/L (98-107); GLUCOSE 98 mg/dl (70-99); MAGNESIUM 2.1 mg/dl (1.8-2.4); POTASSIUM 4.1 mmol/L (3.5-5.1); SODIUM 139 mmol/L (136-145)
--- NOTE | 2016-10-22 01:30 | EMERGENCY ROOM VISIT NOTE ---
ED Visit Note First contact with patient: 00:24 I agree with physician assistants workup. Patient evaluated by me at 1:29 AM. Patient is nonfocal neurologically was complaining of a headache and a sunburn yesterday. Patient denies photophobia and nausea and neck pain fever. Patient has not had slurred speech. I evaluated the patient's laboratory workup and the patient is pending an MRI. Problem List Medical Problems: (1) Appendectomy Status: Resolved (2) Heart disease Status: Chronic (3) Hernia repair Status: Resolved (4) Left-eye droop Status: Chronic (5) PURE HYPERCHOLESTEROLEM Status: Chronic (6) Repair of rotator cuff by suture Status: Resolved (7) Seizure Status: Resolved (8) TIA (transient ischemic attack) Status: Resolved (9) TRANS CEREB ISCHEMIA NOS Status: Resolved (10) Weakness Status: Resolved Surgical Problems: (1) H/O aortic aneurysm repair Status: Resolved (2) H/O aortic valve replacement Status: Resolved Current/Historical Medications Scheduled Aspirin (Aspirin Ec), 81 MG PO QAM Lamotrigine (Lamictal), 100 MG PO BID Allergies Coded Allergies: Codeine (Verified Adverse Reaction, Intermediate, GI SYMPTOMS, 10/22/16) Vital Signs Date Time Temp Pulse Resp B/P Pulse Ox O2 Delivery O2 Flow Rate FiO2 10/22/16 00:28 90 10/22/16 00:25 97 Room Air 10/22/16 00:25 36.9 87 14 159/95 97 Room Air Laboratory Results 10/22/16 00:55 Red Blood Count 5.00, Mean Corpuscular Volume 92.6, Mean Corpuscular Hemoglobin 32.2, Mean Corpuscular Hemoglobin Concent 34.8, Mean Platelet Volume 9.2, Neutrophils (%) (Auto) 78.8, Lymphocytes (%) (Auto) 12.8, Monocytes (%) (Auto) 7.5, Eosinophils (%) (Auto) 0.2, Basophils (%) (Auto) 0.5, Neutrophils # (Auto) 3.45, Lymphocytes # (Auto) 0.56, Monocytes # (Auto) 0.33, Eosinophils # (Auto) 0.01, Basophils # (Auto) 0.02 10/22/16 00:55 Test 10/22/16 00:29 10/22/16 00:55 10/22/16 00:56 Creatine Kinase MB Ratio (0-3.0) White Blood Count 4.38 K/uL (4.8-10.8) Red Blood Count 5.00 M/uL (4.7-6.1) Hemoglobin 16.1 g/dL (14.0-18.0) Hematocrit 46.3 % (42-52) Mean Corpuscular Volume 92.6 fL (80-100) Mean Corpuscular Hemoglobin 32.2 pg (25-34) Mean Corpuscular Hemoglobin Concent 34.8 g/dl (32-36) Platelet Count 123 K/uL (130-400) Mean Platelet Volume 9.2 fL (7.4-10.4) Neutrophils (%) (Auto) 78.8 % Lymphocytes (%) (Auto) 12.8 % Monocytes (%) (Auto) 7.5 % Eosinophils (%) (Auto) 0.2 % Basophils (%) (Auto) 0.5 % Neutrophils # (Auto) 3.45 K/uL (1.4-6.5) Lymphocytes # (Auto) 0.56 K/uL (1.2-3.4) Monocytes # (Auto) 0.33 K/uL (0.11-0.59) Eosinophils # (Auto) 0.01 K/uL (0-0.5) Basophils # (Auto) 0.02 K/uL (0-0.2) RDW Standard Deviation 46.9 fL (36.4-46.3) RDW Coefficient of Variation 13.9 % (11.5-14.5) Immature Granulocyte % (Auto) 0.2 % Immature Granulocyte # (Auto) 0.01 K/uL (0.00-0.02) Prothrombin Time 10.3 SECONDS (9.0-12.0) Prothromb Time International Ratio 1.0 (0.9-1.1) Activated Partial Thromboplast Time 27.1 SECONDS (21.0-31.0) Partial Thromboplastin Ratio 1.0 Anion Gap 6.0 mmol/L (3-11) Est Creatinine Clear Calc Drug Dose 54.1 ml/min Estimated GFR () 67.7 Estimated GFR (Non- 58.4 BUN/Creatinine Ratio 12.2 (10-20) Calcium Level 9.0 mg/dl (8.5-10.1) Magnesium Level 2.1 mg/dl (1.8-2.4) Direct Bilirubin 0.2 mg/dl (0-0.2) Aspartate Amino Transf (AST/SGOT) 86 U/L (15-37) Alanine Aminotransferase (ALT/SGPT) 80 U/L (12-78) Albumin 3.8 gm/dl (3.4-5.0) Bedside Glucose 106 mg/dl (70-99) Departure Information Referrals Keith Smith M.D. (PCP) Patient Instructions My [facility]
[2016-10-22 01:37] LABS: ALKALINE PHOSPHATASE 115 U/L (45-117); CKMB/CK RATIO 0.9 (0-3.0)
[2016-10-22 02:03] LABS: LYME DISEASE AB IGG NEG (NEG)
[2016-10-22 02:08] LABS: LYME DISEASE AB IGM EQUIVOCAL (NEG)
[2016-10-22 02:13] LABS: URINE APPEARANCE CLEAR (CLEAR); URINE BILIRUBIN NEG (NEG); URINE COLOR YELLOW; URINE NITRITE NEG (NEG); URINE SPECIFIC GRAVITY 1.018 (1.000-1.030); UROBILINOGEN NEG (NEG)
[2016-10-22 02:17] LABS: MANUAL MICROSCOPIC REQUIRED? NO; REVIEW REQ? NO
[2016-10-22] MEDS ORDERED: GADAVIST IV PRN (03:30)
[2016-10-22] MEDS ORDERED: DiphenhydrAMINE HCL 50 MG/ML VIAL IV STA (03:51)
[2016-10-22] MEDS ORDERED: METOCLOPRAMIDE HCL INJ 5 MG/ML 2 ML VIAL IV STA (03:51)
--- NOTE | 2016-10-22 04:53 | EMERGENCY ROOM VISIT NOTE ---
History First contact with patient: 00:24 Chief Complaint: NEURO SYMPTOMS Stated Complaint: HEADACHE History of Present Illness The patient is a 76 year old male who presents to the Emergency Room with complaints of increasing left-sided headache with dysarthria and fatigue for the past 3 days is steadily getting worse. Patient states tonight he had a shaking episode and had difficulties walking up the steps and had to hold onto the rail while he was shaking. Patient had a tick pulled off of him one week ago. Patient denies localized weakness, chest pain, dyspnea, fever, chills, cough, congestion, vomiting, diarrhea, cold symptoms, neck stiffness, vision problems. Dr. Parada is his neurologist. He has a history of epilepsy and CVA. He is on a baby aspirin. Review of Systems See HPI for pertinent positives & negatives. A total of 10 systems reviewed and were otherwise negative. Past Medical/Surgical History Medical Problems: (1) Appendectomy (2) Heart disease (3) Hernia repair (4) Left arm pain (5) Left face and left arm tingling (6) Left facial numbness (7) Left-eye droop (8) Left-sided weakness (9) Lyme disease (10) Neurological symptoms (11) PURE HYPERCHOLESTEROLEM (12) Repair of rotator cuff by suture (13) Seizure (14) TIA (transient ischemic attack) (15) TRANS CEREB ISCHEMIA NOS (16) Weakness Surgical Problems: (1) H/O aortic aneurysm repair (2) H/O aortic valve replacement Family History Cancer Heart disease Social History Smoking Status: Never Smoker Alcohol Use: occasionally Drug Use: none Marital Status: Housing Status: lives with family Occupation Status: retired Current/Historical Medications Scheduled Aspirin (Aspirin Ec), 81 MG PO QAM Lamotrigine (Lamictal), 100 MG PO BID Allergies Coded Allergies: Codeine (Verified Adverse Reaction, Intermediate, GI SYMPTOMS, 10/22/16) Physical Exam Vital Signs Date Time Temp Pulse Resp B/P Pulse Ox O2 Delivery O2 Flow Rate FiO2 10/22/16 03:34 80 14 144/89 94 Room Air 85 147/93 84 154/95 10/22/16 03:26 83 20 139/82 92 Room Air 10/22/16 01:59 88 16 155/103 97 Room Air 10/22/16 00:28 90 10/22/16 00:25 97 Room Air 10/22/16 00:25 36.9 87 14 159/95 97 Room Air Physical Exam VITALS: Vitals are noted on the nurse's note and reviewed by myself. Vital signs stable. GENERAL: Pleasant male following commands without difficulties, in no acute distress, nondiaphoretic, well-developed well-nourished. SKIN: The skin was without rashes, erythema, edema, or bruising. There is no tenting of the skin. Capillary reflex less than 2 seconds. HEAD: Normocephalic atraumatic. EARS: External auditory canals clear, tympanic membranes pearly roman without erythema or effusion bilaterally. EYES: Pupils equal round and reactive to light and accommodation. Conjunctivae without injection, sclerae without icterus. Extraocular movements intact. NOSE: Patent, turbinates without inflammation or discharge. MOUTH: Mucous membranes moist. Pharynx without erythema or exudate. Uvula midline. Airway patent. Tongue does not deviate. NECK: Supple without nuchal rigidity. No lymphadenopathy. No thyromegaly. Cervical spine is nontender. No JVD. HEART: Regular rate and rhythm 2/6 systolic murmur LUNGS: Clear to auscultation bilaterally without wheezes, rales or rhonchi. No dullness to percussion. No retractions or accessory muscle use. ABDOMEN: Positive bowel sounds x 4. Normal tympanic percussion. Soft, nontender, without masses or organomegaly. Eric sign negative. No guarding or rebound tenderness. MUSCULOSKELETAL: No muscle atrophy, erythema, or edema noted. 5 out of 5 strength throughout NEURO: Patient was alert and oriented to person place and time. Normal sensation to light and sharp touch. No focal neurological deficits. Cranial nerves II-12 grossly intact. No pronator drift. Cerebellar exam intact. Medical Decision & Procedures Laboratory Results 10/22/16 00:55 Red Blood Count 5.00, Mean Corpuscular Volume 92.6, Mean Corpuscular Hemoglobin 32.2, Mean Corpuscular Hemoglobin Concent 34.8, Mean Platelet Volume 9.2, Neutrophils (%) (Auto) 78.8, Lymphocytes (%) (Auto) 12.8, Monocytes (%) (Auto) 7.5, Eosinophils (%) (Auto) 0.2, Basophils (%) (Auto) 0.5, Neutrophils # (Auto) 3.45, Lymphocytes # (Auto) 0.56, Monocytes # (Auto) 0.33, Eosinophils # (Auto) 0.01, Basophils # (Auto) 0.02 10/22/16 00:55 Test 10/22/16 00:55 10/22/16 00:56 10/22/16 01:55 White Blood Count 4.38 K/uL (4.8-10.8) Red Blood Count 5.00 M/uL (4.7-6.1) Hemoglobin 16.1 g/dL (14.0-18.0) Hematocrit 46.3 % (42-52) Mean Corpuscular Volume 92.6 fL (80-100) Mean Corpuscular Hemoglobin 32.2 pg (25-34) Mean Corpuscular Hemoglobin Concent 34.8 g/dl (32-36) Platelet Count 123 K/uL (130-400) Mean Platelet Volume 9.2 fL (7.4-10.4) Neutrophils (%) (Auto) 78.8 % Lymphocytes (%) (Auto) 12.8 % Monocytes (%) (Auto) 7.5 % Eosinophils (%) (Auto) 0.2 % Basophils (%) (Auto) 0.5 % Neutrophils # (Auto) 3.45 K/uL (1.4-6.5) Lymphocytes # (Auto) 0.56 K/uL (1.2-3.4) Monocytes # (Auto) 0.33 K/uL (0.11-0.59) Eosinophils # (Auto) 0.01 K/uL (0-0.5) Basophils # (Auto) 0.02 K/uL (0-0.2) RDW Standard Deviation 46.9 fL (36.4-46.3) RDW Coefficient of Variation 13.9 % (11.5-14.5) Immature Granulocyte % (Auto) 0.2 % Immature Granulocyte # (Auto) 0.01 K/uL (0.00-0.02) Prothrombin Time 10.3 SECONDS (9.0-12.0) Prothromb Time International Ratio 1.0 (0.9-1.1) Activated Partial Thromboplast Time 27.1 SECONDS (21.0-31.0) Partial Thromboplastin Ratio 1.0 Anion Gap 6.0 mmol/L (3-11) Est Creatinine Clear Calc Drug Dose 54.1 ml/min Estimated GFR () 67.7 Estimated GFR (Non- 58.4 BUN/Creatinine Ratio 12.2 (10-20) Calcium Level 9.0 mg/dl (8.5-10.1) Magnesium Level 2.1 mg/dl (1.8-2.4) Total Bilirubin 0.5 mg/dl (0.2-1) Direct Bilirubin 0.2 mg/dl (0-0.2) Aspartate Amino Transf (AST/SGOT) 86 U/L (15-37) Alanine Aminotransferase (ALT/SGPT) 80 U/L (12-78) Alkaline Phosphatase 115 U/L (45-117) Total Creatine Kinase 115 U/L (39-308) Creatine Kinase MB 1.0 ng/ml (0.5-3.6) Creatine Kinase MB Ratio 0.9 (0-3.0) Troponin I < 0.015 ng/ml (0-0.045) Total Protein 7.2 gm/dl (6.4-8.2) Albumin 3.8 gm/dl (3.4-5.0) Thyroid Stimulating Hormone (TSH) 3.550 uIu/ml (0.300-4.500) Lyme Disease IgG Antibody NEG (NEG) Bedside Glucose 106 mg/dl (70-99) Urine Color YELLOW Urine Appearance CLEAR (CLEAR) Urine pH 7.0 (4.5-7.5) Urine Specific [place] 1.018 (1.000-1.030) Urine Protein NEG (NEG) Urine Glucose (UA) NEG (NEG) Urine Ketones NEG (NEG) Urine Occult Blood NEG (NEG) Urine Nitrite NEG (NEG) Urine Bilirubin NEG (NEG) Urine Urobilinogen NEG (NEG) Urine Leukocyte Esterase NEG (NEG) Medications Administered Medications (Trade) Dose Ordered Sig/Nereida Route Start Time Stop Time Status Last Admin Dose Admin Acetaminophen (Tylenol Tab) 1,000 mg NOW STAT PO 10/22/16 01:21 10/22/16 01:23 DC 10/22/16 01:58 1,000 MG Metoclopramide HCl (Reglan Inj) 10 mg NOW STAT IV 10/22/16 03:51 10/22/16 03:52 DC 10/22/16 04:05 10 MG Diphenhydramine HCl (Benadryl Inj) 12.5 mg NOW STAT IV 10/22/16 03:51 10/22/16 03:52 DC 10/22/16 04:05 12.5 MG ED Course Prior records/ancillary studies reviewed and summarized above. Nursing notes reviewed. Additional history obtained from family and EMS. The patient's history was concerning for headache, fatigue, shaking episode. Differential diagnosis: Etiologies such as metabolic, infection, hypo/hyperglycemia, electrolyte abnormalities, cardiac sources, intracerebral event, toxicologic, neurologic, as well as others were entertained. Physical examination: As above. ER treatment provided: IV Lock IV fluids On reassessment the patient felt better. Diagnostics interpretation by me: ECG: Sinus, normal intervals, no acute ST-T wave changes. Impression normal sinus rhythm interpreted by myself The labs revealed negative troponin Imaging studies: Head CT negative for intracranial bleed. MRI negative for stroke per radiology Consultation: A consultation was placed with the hospitalist, Dr. Delacruz. The case was discussed and diagnostics were reviewed. The patient was evaluated in the ER for further treatment. Patient is a trial ambulation was unable to. He was too dizzy and ataxic. Exam and history seem consistent with TIA and headache. Negative MRI. Patient was quite weak and unable to ambulate. He had a few episodes of difficulty with word finding. He had a shaking episode. He has a history of multiple TIAs and CVA. He will be evaluated by medicine for possible admission. Patient states he did not feel comfortable going home as he was extremely unsteady with his gait.By the evaluation outlined above emergent etiologies such as infection, electrolyte abnormalities, cardiac sources, toxologic, abnormalities blood glucose, metabolic, as well as others were deemed relatively unlikely. The pt informed about the findings as listed above. All questions were answered and pleased with the treatment. case reviewed with my Attending Medical Decision As above Impression Primary Impression: TIA (transient ischemic attack) Additional Impressions: Ataxia Headache Departure Information Dispostion Being Evaluated By Hospitalist Condition FAIR Referrals Keith Smith M.D. (PCP) Patient Instructions My [facility] Problem Qualifiers Primary Impression: TIA (transient ischemic attack) Transient cerebral ischemia type: unspecified Qualified Codes: G45.9 - Transient cerebral ischemic attack, unspecified
[2016-10-22] MEDS ORDERED: ACETAMINOPHEN 325 MG TAB PO PRN (05:45)
[2016-10-22] MEDS ORDERED: ONDANSETRON INJ 2 MG/ML 2 ML VIAL IV PRN (05:45)
--- NOTE | 2016-10-22 06:12 | History and Physical ---
History & Physical Date & Time of Service: October 22, 2016 at 05:47 Chief Complaint: Headache Primary Care Physician: Keith Smith M.D. History of Present Illness Source: patient, family, hospital records Mr Lopez is a 76 year old male who presents to the ER with sudden onset movement disorder. After watching television he got up and walked to the stairs then had sudden onset wailing movements of al four of his limbs and he needed to hang on to the stair case. He did not fall over during this time. The jerking movements slowly got better over 25 minutes after which he still had trouble walking due to problems with balance and bilateral arm and leg weakness. This is on a background of 4 days of left sided headache which intermittent crosses over to the right side. He has a Hx of 2 CVAs in the past with Past Medical/Surgical History Medical Problems: (1) Appendectomy Status: Resolved (2) Heart disease Status: Chronic (3) Hernia repair Status: Resolved (4) Left-eye droop Status: Chronic (5) PURE HYPERCHOLESTEROLEM Status: Chronic (6) Repair of rotator cuff by suture Status: Resolved (7) Seizure Status: Resolved (8) TIA (transient ischemic attack) Status: Resolved (9) TRANS CEREB ISCHEMIA NOS Status: Resolved (10) Weakness Status: Resolved Surgical Problems: (1) H/O aortic aneurysm repair Status: Resolved (2) H/O aortic valve replacement Status: Resolved Family History Cancer Heart disease Social History Smoking Status: Never Smoker Drug Use: none Marital Status: Housing status: lives with family Occupational Status: retired Immunizations History of Influenza Vaccine: Yes Influenza Vaccine Date: Feb 07, 2014 History of Tetanus Vaccine?: Unknown History of Pneumococcal: Unknown Pneumococcal Date: Mar 17, 2013 History of Hepatitis B Vaccine: Unknown Multi-Drug Resistant Organisms History of MDRO: No Allergies Coded Allergies: Codeine (Verified Adverse Reaction, Intermediate, GI SYMPTOMS, 10/22/16) Home Medications Scheduled Aspirin (Aspirin Ec), 81 MG PO QAM Doxycycline Hyclate (Doxycycline Hyclate), 100 MG PO BID Lamotrigine (Lamictal), 100 MG PO BID Lamotrigine (Lamictal), 1 TAB PO BID Scheduled PRN Oxycodone/Acetaminophen 5MG/325MG (Percocet 5MG/325MG), 1-2 TABLETS PO Q4H PRN for Pain Review of Systems Constitutional: No chills, No fever Eyes: No worsening of vision ENT: No hearing loss Respiratory: + cough, No shortness of breath, No wheezing Cardiovascular: + chest pain (chronic left sided chest pain), No PND, No claudication, No edema, No orthopnea Abdomen: No GI bleeding, No constipation, No diarrhea, No nausea, No pain, No vomiting Genitourinary - Male: No dysuria, No hematuria Neurologic: + vertigo (intermittent), + weakness (generalized) Endocrine: No excessive thirst, No excessive urination, No fatigue Hematologic / Lymphatic: No abnormal bleeding/bruising Integumentary: No itch, No rash Physical Exam Vital Signs Date Time Temp Pulse Resp B/P Pulse Ox O2 Delivery O2 Flow Rate FiO2 10/22/16 05:42 79 14 93 Room Air 10/22/16 05:10 81 14 124/79 93 Room Air 10/22/16 03:34 80 14 144/89 94 Room Air 85 147/93 84 154/95 10/22/16 03:26 83 20 139/82 92 Room Air 10/22/16 01:59 88 16 155/103 97 Room Air 10/22/16 00:28 90 10/22/16 00:25 97 Room Air 10/22/16 00:25 36.9 87 14 159/95 97 Room Air General Appearance: WD/WN, no apparent distress Head: normocephalic, atraumatic Eyes: PERRL, EOMI, + pertinent finding (chronic left eyelid droop) ENT: hearing grossly normal, + pertinent finding (left excessive cerumen) Neck: supple, no JVD, no carotid bruits, trachea midline Respiratory/Chest: chest non-tender, no respiratory distress, no accessory muscle use, + crackles (right base) Cardiovascular: regular rate, rhythm, no edema, normal peripheral pulses, + systolic murmur (loudest in LUSB) Abdomen/GI: normal bowel sounds, non tender, soft Back: no CVA tenderness Extremities/Musculoskelatal: no calf tenderness, normal capillary refill, no pedal edema, normal range of motion Neurologic/Psych: alert, oriented x 3, + pertinent finding (continuously adjusting his position thorughout the H&P (restless), mild left pronator drift with reduced co-ordination but normal strength (patient feels this is his baseline since his previous stroke)) Skin: normal color, warm/dry, no rash Diagnostics Laboratory Results Results Past 24 Hours Test 10/22/16 00:55 10/22/16 00:56 10/22/16 01:55 10/22/16 05:40 Range/Units White Blood Count 4.38 4.8-10.8 K/uL Red Blood Count 5.00 4.7-6.1 M/uL Hemoglobin 16.1 14.0-18.0 g/dL Hematocrit 46.3 42-52 % Mean Corpuscular Volume 92.6 80-100 fL Mean Corpuscular Hemoglobin 32.2 25-34 pg Mean Corpuscular Hemoglobin Concent 34.8 32-36 g/dl Platelet Count 123 130-400 K/uL Mean Platelet Volume 9.2 7.4-10.4 fL Neutrophils (%) (Auto) 78.8 % Lymphocytes (%) (Auto) 12.8 % Monocytes (%) (Auto) 7.5 % Eosinophils (%) (Auto) 0.2 % Basophils (%) (Auto) 0.5 % Neutrophils # (Auto) 3.45 1.4-6.5 K/uL Lymphocytes # (Auto) 0.56 1.2-3.4 K/uL Monocytes # (Auto) 0.33 0.11-0.59 K/uL Eosinophils # (Auto) 0.01 0-0.5 K/uL Basophils # (Auto) 0.02 0-0.2 K/uL RDW Standard Deviation 46.9 36.4-46.3 fL RDW Coefficient of Variation 13.9 11.5-14.5 % Immature Granulocyte % (Auto) 0.2 % Immature Granulocyte # (Auto) 0.01 0.00-0.02 K/uL Prothrombin Time 10.3 9.0-12.0 SECONDS Prothromb Time International Ratio 1.0 0.9-1.1 Activated Partial Thromboplast Time 27.1 21.0-31.0 SECONDS Partial Thromboplastin Ratio 1.0 Sodium Level 139 136-145 mmol/L Potassium Level 4.1 3.5-5.1 mmol/L Chloride Level 103 98-107 mmol/L Carbon Dioxide Level 30 21-32 mmol/L Anion Gap 6.0 3-11 mmol/L Blood Urea Nitrogen 15 7-18 mg/dl Creatinine 1.20 0.60-1.40 mg/dl Est Creatinine Clear Calc Drug Dose 54.1 ml/min Estimated GFR () 67.7 Estimated GFR (Non- 58.4 BUN/Creatinine Ratio 12.2 10-20 Random Glucose 98 70-99 mg/dl Calcium Level 9.0 8.5-10.1 mg/dl Magnesium Level 2.1 1.8-2.4 mg/dl Total Bilirubin 0.5 0.2-1 mg/dl Direct Bilirubin 0.2 0-0.2 mg/dl Aspartate Amino Transf (AST/SGOT) 86 15-37 U/L Alanine Aminotransferase (ALT/SGPT) 80 12-78 U/L Alkaline Phosphatase 115 45-117 U/L Total Creatine Kinase 115 39-308 U/L Creatine Kinase MB 1.0 0.5-3.6 ng/ml Creatine Kinase MB Ratio 0.9 0-3.0 Troponin I < 0.015 0-0.045 ng/ml Total Protein 7.2 6.4-8.2 gm/dl Albumin 3.8 3.4-5.0 gm/dl Thyroid Stimulating Hormone (TSH) 3.550 0.300-4.500 uIu/ml Lyme Disease IgG Antibody NEG NEG Lyme Disease IgM Antibody EQUIVOCAL NEG Bedside Glucose 106 70-99 mg/dl Urine Color YELLOW Urine Appearance CLEAR CLEAR Urine pH 7.0 4.5-7.5 Urine Specific [place] 1.018 1.000-1.030 Urine Protein NEG NEG Urine Glucose (UA) NEG NEG Urine Ketones NEG NEG Urine Occult Blood NEG NEG Urine Nitrite NEG NEG Urine Bilirubin NEG NEG Urine Urobilinogen NEG NEG Urine Leukocyte Esterase NEG NEG Test 10/22/16 05:45 Range/Units Diagnostic Radiology HEAD CT NONCONTRAST CT DOSE: 614.27 mGy.cm HISTORY: Headache. Weakness. TECHNIQUE: Multiaxial CT images of the head were performed without the use of intravenous contrast. Automated exposure control was utilized for this study. Comparison: Head CT 09/11/2016. Findings: The paranasal sinuses and mastoid air cells are clear. The calvarium and skull base are intact. There is no mass, hematoma, midline shift, acute infarct. White matter hypodensity is nonspecific but suggestive of microvascular ischemic change. The ventricles and sulci demonstrate mild age-related involutional changes. Impression: No significant change compared to the prior study. No acute intracranial abnormality. Electronically signed by: Aldair Garland M.D. 10/22/2016 7:10 AM Dictated Date/Time: 10/22/2016 7:08 AM MRI OF THE BRAIN WITHOUT AND WITH IV CONTRAST SEIZURE PROTOCOL CLINICAL HISTORY: PEREZ/dizzy/can't walk mental status change COMPARISON STUDY: 09/12/2016 TECHNIQUE: Utilizing a 1.5 Anat magnet and dedicated coil, multiplanar, multiecho imaging of the brain was performed pre and postcontrast administration. IV administration of 8.5 mL of Gadavist contrast was uneventful. Thin cut coronal T2 imaging was performed according to seizure protocol. FINDINGS: Mild cerebral atrophy. Mild chronic small vessel change. No acute intracranial abnormality. No abnormal postcontrast enhancement. IMPRESSION: Atrophy and age-related change. No change from the prior exam. No acute process. Electronically signed by: Jose Smith M.D. 10/22/2016 7:05 AM Dictated Date/Time: 10/22/2016 7:02 AM EKG 84 bpm, NSR, QTc 397 ms Impression Assessment and Plan 76 year old with history of bioprosthetic valve, aortic aneurysm repair, x2 CVA and seizure. 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 PT/OT/Discharge planning Level of Care Telemetry Resuscitation Status FULL RESUSCITATION VTE Prophylaxis VTE Risk Assessment Done? Y/N: Yes Risk Level: Moderate Given or contraindicated: Enoxaparin (Lovenox)SQ Additional Copies To Keith Smith M.D. Resident Tracking Resident Involvement: Resident Care Provided Care Provided: [facility] Medicine Assessment and Plan Attending Addendum: I have physically seen and examined this patient, have directed their medical care, have supervised the medical residents activities, and agree with the H&P as noted above, with the following changes: NONE
[2016-10-22] MEDS ORDERED: IV FLUIDS COMPLETED PRN (06:15)
[2016-10-22] MEDS ORDERED: PHARMACIST DISCHARGE MED REC CONSULT PRN (06:15)
--- NOTE | 2016-10-22 06:26 | DIAGNOSTIC IMAGING REPORT ---
CHEST ONE VIEW PORTABLE CLINICAL HISTORY: right basal crackles cough COMPARISON STUDY: 09/11/2016 FINDINGS: Tortuous thoracic aorta. Median sternotomy. Lungs are clear. IMPRESSION: Negative chest. Electronically signed by: Jose Smith M.D. 10/22/2016 6:25 AM Dictated Date/Time: 10/22/2016 6:24 AM
--- NOTE | 2016-10-22 07:06 | DIAGNOSTIC IMAGING REPORT ---
MRI OF THE BRAIN WITHOUT AND WITH IV CONTRAST SEIZURE PROTOCOL CLINICAL HISTORY: PEREZ/dizzy/can't walk mental status change COMPARISON STUDY: 09/12/2016 TECHNIQUE: Utilizing a 1.5 Anat magnet and dedicated coil, multiplanar, multiecho imaging of the brain was performed pre and postcontrast administration. IV administration of 8.5 mL of Gadavist contrast was uneventful. Thin cut coronal T2 imaging was performed according to seizure protocol. FINDINGS: Mild cerebral atrophy. Mild chronic small vessel change. No acute intracranial abnormality. No abnormal postcontrast enhancement. IMPRESSION: Atrophy and age-related change. No change from the prior exam. No acute process. Electronically signed by: Jose Smith M.D. 10/22/2016 7:05 AM Dictated Date/Time: 10/22/2016 7:02 AM
--- NOTE | 2016-10-22 07:11 | DIAGNOSTIC IMAGING REPORT ---
HEAD CT NONCONTRAST CT DOSE: 614.27 mGy.cm HISTORY: Headache. Weakness. TECHNIQUE: Multiaxial CT images of the head were performed without the use of intravenous contrast. Automated exposure control was utilized for this study. Comparison: Head CT 09/11/2016. Findings: The paranasal sinuses and mastoid air cells are clear. The calvarium and skull base are intact. There is no mass, hematoma, midline shift, acute infarct. White matter hypodensity is nonspecific but suggestive of microvascular ischemic change. The ventricles and sulci demonstrate mild age-related involutional changes. Impression: No significant change compared to the prior study. No acute intracranial abnormality. Electronically signed by: Aldair Garland M.D. 10/22/2016 7:10 AM Dictated Date/Time: 10/22/2016 7:08 AM
[2016-10-22 08:45] VITALS: BP 136/86; PULSE 76; TEMP 37; O2SAT 93; Ht 177.8 cm; Wt 83.6 kg
[2016-10-22] MEDS ORDERED: ASPIRIN 81 MG ECTAB PO SCH (09:00)
[2016-10-22] MEDS ORDERED: ENOXAPARIN 40 MG/0.4 ML SYR SC SCH (09:00)
[2016-10-22] MEDS: OXYCODONE HCL IR 5 MG TAB (IMMEDIATE RELEASE) PO SCH ×2 (10:40→12:49)
[2016-10-22 11:10] VITALS: BP 118/76; PULSE 76; TEMP 36.9; O2SAT 95
--- NOTE | 2016-10-22 11:36 | Neurology Consultation ---
Neurology Consultation Date of Consultation: October 22, 2016. Attending Physician: Rommel Rice M.D. Primary Care Physician: Keith Smith M.D. Reason for Consultation: Seizure-like episode History of Present Illness Source: patient, hospital records The patient is a 76-year-old male with a history of seizure-like episodes and strokelike episodes who follows with Dr. Parada. He was admitted to the hospital yesterday afternoon unusual episode. The patient indicates that he had been watching TV, and began walking up the stairs. He indicates that he then felt something, over him and his arms and legs began shaking uncontrollably. He remembers grabbing onto the railing. He did not fall or lose consciousness. He was able to walk up the stairs and laid down on the floor. He has been complaining of headache and not feeling very well recently. He is prescribed Lamictal and daily low-dose aspirin. I reviewed the images and radiologist's impression of the recently completed brain MRI. Other than mild generalized atrophy, no significant abnormalities observed. No evidence of acute or subacute stroke. No evidence of chronic stroke. No evidence of mesial temporal sclerosis or other structural abnormalities. An EKG revealed a normal sinus rhythm, 84 bpm. Other than a mild headache this morning, the patient does not have any other specific complaints. No confusion, no muscle pain, no fever or chills. This patient has had multiple recent admissions for strokelike episodes with unremarkable evaluations. Multiple normal brain MRIs as well as unremarkable CT angiography of the head and neck. Recently completed electroencephalogram was also normal. Past Medical/Surgical History Medical Problems: (1) Ambulatory dysfunction Status: Acute (2) Ataxia Status: Acute (3) Headache Status: Acute (4) Stroke Status: Acute (5) Stroke-like symptoms Status: Acute (6) TIA (transient ischemic attack) Status: Acute (7) TIA (transient ischemic attack) Status: Acute Family History Father: coronary artery disease, pertinent history of Mother: COPD, pertinent history of Social History Smoking Status: Never smoker Drug Use: none Marital Status: Housing Status: lives with family Occupation Status: retired Allergies Coded Allergies: Codeine (Verified Adverse Reaction, Intermediate, GI SYMPTOMS, 10/22/16) Current Inpatient Medications Current Inpatient Medications Medications (Trade) Dose Ordered Sig/Nereida Route Start Time Stop Time Status Last Admin Dose Admin Gadobutrol (Gadavist) 8 mmol UD PRN IV 10/22/16 03:30 10/26/16 03:29 Enoxaparin Sodium (Lovenox Inj) 40 mg DAILY SC 10/22/16 09:00 11/21/16 08:59 10/22/16 09:47 40 MG Acetaminophen (Tylenol Tab) 650 mg Q4H PRN PO 10/22/16 05:45 11/21/16 05:44 10/22/16 08:02 650 MG Ondansetron HCl (Zofran Inj) 4 mg Q6H PRN IV 10/22/16 05:45 11/21/16 05:44 Miscellaneous (Iv Fluids Completed) 1 ea PRN PRN N/A 10/22/16 06:15 10/22/17 06:14 Miscellaneous Information (Pharmacist Discharge Med Rec Consult) 1 ea UD PRN N/A 10/22/16 06:15 11/21/16 06:14 Aspirin (Ecotrin Tab) 81 mg QAM PO 10/22/16 09:00 11/21/16 08:59 10/22/16 09:47 81 MG Lamotrigine (Lamictal Tab) 100 mg BID PO 10/22/16 09:00 11/21/16 08:59 10/22/16 09:47 100 MG Review of Systems Patient denies fever, chills, vision change, hearing change, chest pain, palpitations, shortness of breath, coughing, wheezing, abdominal pain, diarrhea , dysuria, incontinence, muscle pain, joint pain, swollen glands, abnormal bruising or bleeding, depression, or anxiety A full 10 point review of systems was obtained in this patient with pertinent positives and negatives described in history of present illness and otherwise listed above. Physical Exam Vital Signs (Past 24 Hrs): Date Time Temp Pulse Resp B/P Pulse Ox O2 Delivery O2 Flow Rate FiO2 10/22/16 11:10 36.9 76 16 118/76 95 Room Air 10/22/16 08:45 37.0 76 16 136/86 93 Room Air 10/22/16 06:53 82 16 93 10/22/16 06:26 81 14 131/84 93 Room Air 10/22/16 05:42 79 14 93 Room Air 10/22/16 05:10 81 14 124/79 93 Room Air 10/22/16 03:34 80 14 144/89 94 Room Air 85 147/93 84 154/95 10/22/16 03:26 83 20 139/82 92 Room Air 10/22/16 01:59 88 16 155/103 97 Room Air 10/22/16 00:28 90 10/22/16 00:25 97 Room Air 10/22/16 00:25 36.9 87 14 159/95 97 Room Air The patient is a well-developed, well-nourished elderly male, no acute distress. He is alert and oriented to person place and time. Attention and concentration normal. He is able to name objects and repeat phrases. Reading comprehension normal. Recent and remote memory intact. Vocabulary normal. Patient exhibits an age-appropriate fund of knowledge. Visual cohen full to confrontation. Pupils equal round reactive to light and accommodation. Eye movements normal. There is no nystagmus. Facial sensation intact bilaterally. There is no facial weakness or facial droop. Palate elevates to midline. Tongue protrudes to midline. Shoulder shrug and hearing intact bilaterally. Sensation intact to light touch, temperature, vibration, and proprioception for all 4 limbs. Deep tendon reflexes are 2+ for the upper and lower limbs bilaterally, plantar responses downgoing bilaterally. There is no dysmetria with finger to nose or heel to crump bilaterally. Ophthalmoscopic examination reveals normal- appearing optic nerves and posterior elements, no papilledema or hemorrhages. Carotid pulses normal bilaterally, no bruits to auscultation. Muscular skeletal examination reveals normal strength and tone for all 4 limbs proximally and distally. No atrophy. No abnormal movements observed. Gait and station normal. Laboratory Results Past 24 Hours: 10/22/16 00:55 Red Blood Count 5.00, Mean Corpuscular Volume 92.6, Mean Corpuscular Hemoglobin 32.2, Mean Corpuscular Hemoglobin Concent 34.8, Mean Platelet Volume 9.2, Neutrophils (%) (Auto) 78.8, Lymphocytes (%) (Auto) 12.8, Monocytes (%) (Auto) 7.5, Eosinophils (%) (Auto) 0.2, Basophils (%) (Auto) 0.5, Neutrophils # (Auto) 3.45, Lymphocytes # (Auto) 0.56, Monocytes # (Auto) 0.33, Eosinophils # (Auto) 0.01, Basophils # (Auto) 0.02 10/22/16 00:55 Test 10/22/16 00:55 10/22/16 00:56 10/22/16 01:55 10/22/16 06:56 White Blood Count 4.38 K/uL (4.8-10.8) Red Blood Count 5.00 M/uL (4.7-6.1) Hemoglobin 16.1 g/dL (14.0-18.0) Hematocrit 46.3 % (42-52) Mean Corpuscular Volume 92.6 fL (80-100) Mean Corpuscular Hemoglobin 32.2 pg (25-34) Mean Corpuscular Hemoglobin Concent 34.8 g/dl (32-36) Platelet Count 123 K/uL (130-400) Mean Platelet Volume 9.2 fL (7.4-10.4) Neutrophils (%) (Auto) 78.8 % Lymphocytes (%) (Auto) 12.8 % Monocytes (%) (Auto) 7.5 % Eosinophils (%) (Auto) 0.2 % Basophils (%) (Auto) 0.5 % Neutrophils # (Auto) 3.45 K/uL (1.4-6.5) Lymphocytes # (Auto) 0.56 K/uL (1.2-3.4) Monocytes # (Auto) 0.33 K/uL (0.11-0.59) Eosinophils # (Auto) 0.01 K/uL (0-0.5) Basophils # (Auto) 0.02 K/uL (0-0.2) RDW Standard Deviation 46.9 fL (36.4-46.3) RDW Coefficient of Variation 13.9 % (11.5-14.5) Immature Granulocyte % (Auto) 0.2 % Immature Granulocyte # (Auto) 0.01 K/uL (0.00-0.02) Prothrombin Time 10.3 SECONDS (9.0-12.0) Prothromb Time International Ratio 1.0 (0.9-1.1) Activated Partial Thromboplast Time 27.1 SECONDS (21.0-31.0) Partial Thromboplastin Ratio 1.0 Anion Gap 6.0 mmol/L (3-11) Est Creatinine Clear Calc Drug Dose 54.1 ml/min Estimated GFR () 67.7 Estimated GFR (Non- 58.4 BUN/Creatinine Ratio 12.2 (10-20) Calcium Level 9.0 mg/dl (8.5-10.1) Magnesium Level 2.1 mg/dl (1.8-2.4) Total Bilirubin 0.5 mg/dl (0.2-1) Direct Bilirubin 0.2 mg/dl (0-0.2) Aspartate Amino Transf (AST/SGOT) 86 U/L (15-37) Alanine Aminotransferase (ALT/SGPT) 80 U/L (12-78) Alkaline Phosphatase 115 U/L (45-117) Total Creatine Kinase 115 U/L (39-308) Creatine Kinase MB 1.0 ng/ml (0.5-3.6) Creatine Kinase MB Ratio 0.9 (0-3.0) Troponin I < 0.015 ng/ml (0-0.045) Total Protein 7.2 gm/dl (6.4-8.2) Albumin 3.8 gm/dl (3.4-5.0) Thyroid Stimulating Hormone (TSH) 3.550 uIu/ml (0.300-4.500) Lyme Disease IgG Antibody NEG (NEG) Bedside Glucose 106 mg/dl (70-99) Urine Color YELLOW Urine Appearance CLEAR (CLEAR) Urine pH 7.0 (4.5-7.5) Urine Specific [place] 1.018 (1.000-1.030) Urine Protein NEG (NEG) Urine Glucose (UA) NEG (NEG) Urine Ketones NEG (NEG) Urine Occult Blood NEG (NEG) Urine Nitrite NEG (NEG) Urine Bilirubin NEG (NEG) Urine Urobilinogen NEG (NEG) Urine Leukocyte Esterase NEG (NEG) Erythrocyte Sedimentation Rate 5 mm/hr (0-14) Hepatitis B Surface Antigen NEG (NEG) Hepatitis C Antibody NEG (NEG) Impression Unusual seizure-like episode characterized by irregular shaking of all 4 limbs but with intact consciousness and awareness. Probably nonphysiologic. No abnormalities observed on recently completed brain MRI. Neurological examination is intact. Plan Although the recent episode was not likely a true seizure, I would increase his dosage of Lamictal to 125 mg twice daily. Continue daily low-dose aspirin. Patient should follow-up with Dr. Parada for further evaluation and management, he may need an ambulatory EEG. No further immediate recommendations.
[2016-10-22] MEDS ORDERED: DOXYCYCLINE HYCLATE 100 MG CAP PO SCH (12:00)
--- NOTE | 2016-10-22 13:07 | Hospitalist Progress Note ---
Hospitalist Progress Note Date of Service October 22, 2016. Subjective Pt evaluation today including: conversation w/ patient, physical exam, chart review, lab review, review of studies, review of inpatient medication list Voiding: no voiding problems, no incontinence Patient states he is feeling well. Patient was recently bite by a tick. He believes the tick was on him for a few days. He admits to joint pain. He denies any rashes. He thought his symptoms yesterday were due to his seizure disorder, but he has not had a seizure in quite some time so he was concerned. Patient denies any fever, chills, sweats, lightheadedness, dizziness, vision changes, CP , palpitations, edema, SOB, wheezing, cough, abdominal pain, nausea, vomiting, diarrhea, urinary symptoms, melena, numbness/tingling, weakness, muscle pain, anxiety/depression, active bleeding, or new skin discoloration/changes. Medications Current Inpatient Medications Medications (Trade) Dose Ordered Sig/Nereida Route Start Time Stop Time Status Last Admin Dose Admin Gadobutrol (Gadavist) 8 mmol UD PRN IV 10/22/16 03:30 10/26/16 03:29 Enoxaparin Sodium (Lovenox Inj) 40 mg DAILY SC 10/22/16 09:00 11/21/16 08:59 10/22/16 09:47 40 MG Acetaminophen (Tylenol Tab) 650 mg Q4H PRN PO 10/22/16 05:45 11/21/16 05:44 10/22/16 08:02 650 MG Ondansetron HCl (Zofran Inj) 4 mg Q6H PRN IV 10/22/16 05:45 11/21/16 05:44 Miscellaneous (Iv Fluids Completed) 1 ea PRN PRN N/A 10/22/16 06:15 10/22/17 06:14 Miscellaneous Information (Pharmacist Discharge Med Rec Consult) 1 ea UD PRN N/A 10/22/16 06:15 11/21/16 06:14 Aspirin (Ecotrin Tab) 81 mg QAM PO 10/22/16 09:00 11/21/16 08:59 10/22/16 09:47 81 MG Lamotrigine (Lamictal Tab) 100 mg BID PO 10/22/16 09:00 6/15/17 08:59 10/22/16 09:47 100 MG Doxycycline Hyclate (Vibramycin Cap) 100 mg BID PO 10/22/16 12:00 11/01/16 11:59 10/22/16 12:21 100 MG Objective Vital Signs Date Time Temp Pulse Resp B/P Pulse Ox O2 Delivery O2 Flow Rate FiO2 10/22/16 12:00 Room Air 10/22/16 11:10 36.9 76 16 118/76 95 Room Air 10/22/16 08:45 37.0 76 16 136/86 93 Room Air 10/22/16 06:53 82 16 93 10/22/16 06:26 81 14 131/84 93 Room Air 10/22/16 05:42 79 14 93 Room Air 10/22/16 05:10 81 14 124/79 93 Room Air 10/22/16 03:34 80 14 144/89 94 Room Air 85 147/93 84 154/95 10/22/16 03:26 83 20 139/82 92 Room Air 10/22/16 01:59 88 16 155/103 97 Room Air 10/22/16 00:28 90 10/22/16 00:25 97 Room Air 10/22/16 00:25 36.9 87 14 159/95 97 Room Air Physical Exam General Appearance: no apparent distress Eyes: normal inspection, PERRL ENT: hearing grossly normal Neck: supple Respiratory/Chest: lungs clear, no respiratory distress, no accessory muscle use Cardiovascular: regular rate, rhythm Abdomen: normal bowel sounds, non tender, soft Extremities: no pedal edema, no calf tenderness Neurologic/Psychiatric: alert, normal mood/affect, oriented x 3 Skin: normal color, warm/dry, no rash Laboratory Results Last 24 Hours Test 10/22/16 00:55 10/22/16 00:56 10/22/16 01:55 10/22/16 06:56 White Blood Count 4.38 K/uL Red Blood Count 5.00 M/uL Hemoglobin 16.1 g/dL Hematocrit 46.3 % Mean Corpuscular Volume 92.6 fL Mean Corpuscular Hemoglobin 32.2 pg Mean Corpuscular Hemoglobin Concent 34.8 g/dl Platelet Count 123 K/uL Mean Platelet Volume 9.2 fL Neutrophils (%) (Auto) 78.8 % Lymphocytes (%) (Auto) 12.8 % Monocytes (%) (Auto) 7.5 % Eosinophils (%) (Auto) 0.2 % Basophils (%) (Auto) 0.5 % Neutrophils # (Auto) 3.45 K/uL Lymphocytes # (Auto) 0.56 K/uL Monocytes # (Auto) 0.33 K/uL Eosinophils # (Auto) 0.01 K/uL Basophils # (Auto) 0.02 K/uL RDW Standard Deviation 46.9 fL RDW Coefficient of Variation 13.9 % Immature Granulocyte % (Auto) 0.2 % Immature Granulocyte # (Auto) 0.01 K/uL Prothrombin Time 10.3 SECONDS Prothromb Time International Ratio 1.0 Activated Partial Thromboplast Time 27.1 SECONDS Partial Thromboplastin Ratio 1.0 Sodium Level 139 mmol/L Potassium Level 4.1 mmol/L Chloride Level 103 mmol/L Carbon Dioxide Level 30 mmol/L Anion Gap 6.0 mmol/L Blood Urea Nitrogen 15 mg/dl Creatinine 1.20 mg/dl Est Creatinine Clear Calc Drug Dose 54.1 ml/min Estimated GFR () 67.7 Estimated GFR (Non- 58.4 BUN/Creatinine Ratio 12.2 Random Glucose 98 mg/dl Calcium Level 9.0 mg/dl Magnesium Level 2.1 mg/dl Total Bilirubin 0.5 mg/dl Direct Bilirubin 0.2 mg/dl Aspartate Amino Transf (AST/SGOT) 86 U/L Alanine Aminotransferase (ALT/SGPT) 80 U/L Alkaline Phosphatase 115 U/L Total Creatine Kinase 115 U/L Creatine Kinase MB 1.0 ng/ml Creatine Kinase MB Ratio 0.9 Troponin I < 0.015 ng/ml Total Protein 7.2 gm/dl Albumin 3.8 gm/dl Thyroid Stimulating Hormone (TSH) 3.550 uIu/ml Lyme Disease IgG Antibody NEG Lyme Disease IgM Antibody EQUIVOCAL Bedside Glucose 106 mg/dl Urine Color YELLOW Urine Appearance CLEAR Urine pH 7.0 Urine Specific [place] 1.018 Urine Protein NEG Urine Glucose (UA) NEG Urine Ketones NEG Urine Occult Blood NEG Urine Nitrite NEG Urine Bilirubin NEG Urine Urobilinogen NEG Urine Leukocyte Esterase NEG Erythrocyte Sedimentation Rate 5 mm/hr Hepatitis B Surface Antigen NEG Hepatitis C Antibody NEG Assessment and Plan 76 year old with history of bioprosthetic valve, aortic aneurysm repair, x2 CVA and seizure, who presented to the ED because of sudden onset wailing movements of al four of his limbs and he needed to hang on to the stair case Sudden onset movement disorder: - Admit to tele for cardiac monitoring - Lamictal pending - Head CT, brain MRI, and CXR- unremarkable - UA negative - TSH WNL - Continue ASA 81 mg daily - Consult neurology, appreciate recommendations -- ?Increase Lamictal -- f/u w/ neurology on October 31 scheduled Seizure disorder: Lamictal 100 mg BID IgM Lyme +: - Western blot pending - Due to recent tick bite, symptoms, and IgM +, will start Doxycycline 100 mg BID Transaminitis: Follow CMP DVT prophylaxis: Lovenox Code Status: LEVEL I, FULL Dispo: From home - PT/OT evaluations pending
[2016-10-22] MEDS ORDERED: DXY100 PO (15:48)
[2016-10-22] MEDS ORDERED: LAMO25TA PO (15:48)
--- NOTE | 2016-10-22 15:50 | Discharge Instructions ---
Discharge Instructions Date of Service October 22, 2016. Admission Reason for Admission: Abnormal Involuntary Movement, Ataxia, Headache Discharge Discharge Diagnosis / Problem: probable lyme disease Discharge Goals Goal(s): Diagnostic testing Activity Recommendations Activity Limitations: resume your previous activity . Current Hospital Diet Patient's current hospital diet: Regular Diet Discharge Diet Recommended Diet: Regular Diet Pending Studies Studies pending at discharge: no Medical Emergencies . Who to Call and When: Medical Emergencies: If at any time you feel your situation is an emergency, please call 911 immediately. . Non-Emergent Contact Non-Emergency issues call your: Primary Care Provider . . "Provider Documentation" section prepared by Rommel Rice. . VTE Core Measure Inpt VTE Proph given/why not?: Enoxaparin (Lovenox)SQ
[2016-10-22] MEDS ORDERED: OXYC-57 PO (16:01)
--- NOTE | 2016-10-22 16:16 | Discharge Summary ---
Discharge Summary Date of Service October 22, 2016. Discharge Summary Admission Date: October 22, 2016 at 05:44 Discharge Date: October 22, 2016 Discharge Disposition: Home Principal Diagnosis: possible lyme disease Immunizations: Have You Had Influenza Vaccine: Yes Influenza Vaccine Date: Feb 07, 2014 History of Tetanus Vaccine?: Unknown History of Pneumococcal: Unknown Pneumococcal Date: Mar 17, 2013 History of Hepatitis B Vaccine: Unknown Consultations: Dr Jordan García ordered increased lamictal dosing Medication Reconciliation New Medications: Lamotrigine (Lamictal) 25 Mg Tab 1 TAB PO BID for 30 Days, #60 TAB 1 Refill Oxycodone/Acetaminophen 5MG/325MG (Percocet 5MG/325MG) Tab 1-2 TABLETS PO Q4H PRN for Pain, #20 TAB Doxycycline Hyclate (Doxycycline Hyclate) 100 Mg Cap 100 MG PO BID, #28 CAP Continued Medications: Aspirin (Aspirin Ec) 81 Mg Tab 81 MG PO QAM Lamotrigine (Lamictal) 100 Mg Tab 100 MG PO BID for 30 Days, #60 TAB 2 Refills Discharge Exam Review of Systems: Constitutional: No chills, No fever Eyes: No eye pain, No worsening of vision Respiratory: No cough, No sputum Cardiovascular: No chest pain, No orthopnea Abdomen: No nausea, No pain Neurologic: No memory loss, No paralysis, No weakness Physical Exam: General Appearance: WD/WN, + mild distress Neck: supple, no JVD Respiratory/Chest: chest non-tender, lungs clear, normal breath sounds Cardiovascular: regular rate, rhythm, no edema, normal peripheral pulses Abdomen / GI: normal bowel sounds, non tender, soft Extremities: no pedal edema, normal range of motion Neurologic/Psychiatric: alert, oriented x 3 Hospital Course 76 year old with recent lyme disease and more recent recurrent tic bite, presents with transient gait instability history of bioprosthetic valve, aortic aneurysm repair, x2 CVA and seizure Gait disorder--> resolved, remains minor headache - Head CT, brain MRI, and CXR- unremarkable - UA negative - TSH WNL , lyme IGM is elevated sent for confirmation - Continue ASA 81 mg daily, not no statin but not confirmed TIA or stroke, can consider discussion of statin further with Dr Parada - Consult neurology, recommendation increased lamictal, and close follow up, lamictal level is pending -headache improved with low dose percocet will release to home with close follow up Seizure disorder: new dose Lamictal 125 mg BID IgM Lyme +:- Western blot pending Doxycycline 100 mg BID DVT prophylaxis: Lovenox Code Status: LEVEL I, FULL Total Time Spent: Greater than 30 minutes This includes examination of the patient, discharge planning, medication reconciliation, and communication with other providers. Discharge Instructions Please refer to the electronic Patient Visit Report (Discharge Instructions) for additional information. Additional Copies To Carley Parada M.D.
[2016-10-22 16:31] VITALS: BP 150/89; PULSE 72; TEMP 37.1; O2SAT 93
[2016-10-28 22:06] LABS: 18KDIGG BAND NONREACTIVE (NONREACTIVE); 23KDIGG BAND REACTIVE (NONREACTIVE); 23KDIGM BAND REACTIVE (NONREACTIVE); 28KDIGG BAND NONREACTIVE (NONREACTIVE); 30KDIGG BAND NONREACTIVE (NONREACTIVE); 39KDIGG BAND NONREACTIVE (NONREACTIVE); 39KDIGM BAND NONREACTIVE (NONREACTIVE); 41KDIGG BAND REACTIVE (NONREACTIVE); 41KDIGM BAND NONREACTIVE (NONREACTIVE); 45KDIGG BAND NONREACTIVE (NONREACTIVE); 58KDIGG BAND REACTIVE (NONREACTIVE); 66KDIGG BAND REACTIVE (NONREACTIVE); 93KDIGG BAND NONREACTIVE (NONREACTIVE)
== END 2016-10-22 16:55 | disposition home or self-care (01) | DRG 869 ==
LOC: ENRESERVTM → ENRESERVDT → EDBD 00:21 → C.EDB 00:22 → C.2T 05:44
PROVIDERS: ADMIT Hospitalist; ATTEND Internal Medicine
DX: A69.20 Lyme disease, unspecified (principal); R25.8 Other abnormal involuntary movements; R51 Headache; G40.909 Epilepsy, unspecified, not intractable, without status epilepticus; Z79.82 Long term (current) use of aspirin; Z79.899 Other long term (current) drug therapy

== ENCOUNTER → 2017-03-06 | Outpatient (CLI) | payer BC ==
[~2017-03-06] MED LIST changes: +DXY100 PO; +LAMO25TA PO; +OXYC-57 PO
--- NOTE | 2017-03-06 12:45 | DIAGNOSTIC IMAGING REPORT ---
L-SPINE MIN 4 VIEWS ROUTINE CLINICAL HISTORY: 76 years-old Male presenting with M54.5 Low back [id number]. TECHNIQUE: Frontal, bilateral oblique, lateral, and coned in lateral views of the lumbar spine were obtained. COMPARISON: CT from 2012. FINDINGS: Mild dextrocurvature of the lumbar spine. 10 mm of anterolisthesis of L5 on S1 with bilateral pars defects. Vertebral body heights and alignment otherwise maintained. Mild intervertebral disc height loss at L5-S1. Osseous narrowing of the bilateral neural foramina at L5-S1 suggested. Facet arthropathy at L4-5 may also result in L4-5 bilateral osseous neural foraminal narrowing. Epicardial pacing wires partially visualized. Large stool burden in the colon. No gross free air. Osteopenia suggested. IMPRESSION: 1. 10 mm of anterolisthesis of L5 on S1 with bilateral pars defects suspected. 2. Degenerative changes of the lower lumbar spine with osseous neural foraminal narrowing at L4-5 and L5-S1. Electronically signed by: Yves Diana M.D. 03/06/2017 12:44 PM Dictated Date/Time: 03/06/2017 12:41 PM
== END | disposition home or self-care (01) ==
LOC: C.RAD1850 12:14
PROVIDERS: ATTEND Internal Medicine Pulmonary Disease
DX: M54.5 Low back pain (principal); M89.8X8 Other specified disorders of bone, other site

== ENCOUNTER 2017-06-16 14:13 | Observation (INO) | payer BC ==
[~2017-06-16] VITALS: Ht 177.8 cm; Wt 78.2 kg
[~2017-06-16 14:13] MED LIST changes: -OXYC-57 PO
[2017-06-16] MEDS ORDERED: ONDANSETRON INJ 2 MG/ML 2 ML VIAL IV STA (14:41)
[2017-06-16] MEDS ORDERED: SODIUM CHLORIDE 0.9% 1000ML 1,000 ML IV SCH (14:45)
[2017-06-16 14:54] LABS: BASO % 0.6 %; BASO ABS # 0.05 K/uL (0-0.2); EOS % 1.9 %; EOS ABS # 0.16 K/uL (0-0.5); HEMATOCRIT 44.2 % (42-52); HEMOGLOBIN 15.4 g/dL (14.0-18.0); IG# 0.01 K/uL (0.00-0.02); LYMPH ABS # 2.17 K/uL (1.2-3.4); MEAN CELL VOLUME 93.1 fL (80-100); MEAN CORPUSCULAR HEMOGLOBIN 32.4 pg (25-34); MEAN CORPUSCULAR HGB CONC 34.8 g/dl (32-36); MEAN PLATELET VOLUME 10.1 fL (7.4-10.4); MONO % 9.1 %; MONO ABS # 0.76 K/uL (0.11-0.59); NEUT % 62.3 %; PLATELET COUNT 165 K/uL (130-400); RED CELL DISTRIBUTION WIDTH CV 13.6 % (11.5-14.5); RED CELL DISTRIBUTION WIDTH SD 46.4 fL (36.4-46.3); WHITE BLOOD COUNT 8.35 K/uL (4.8-10.8)
--- NOTE | 2017-06-16 14:54 | DIAGNOSTIC IMAGING REPORT ---
CHEST ONE VIEW PORTABLE CLINICAL HISTORY: Dizzy. Chest pain. COMPARISON STUDY: Chest radiograph October 22, 2016. FINDINGS: There are median sternotomy wires and mediastinal surgical clips. No pneumothorax or pleural effusion is present. There is no evidence for pulmonary edema. Tortuosity of the descending thoracic aorta is again noted. Moderate cardiomegaly is unchanged. There is no consolidation to suggest pneumonia. The appearance of the chest is unchanged. IMPRESSION: No acute cardiopulmonary findings. No change in appearance of the chest. Electronically signed by: [place] Gunn M.D. 06/16/2017 2:53 PM Dictated Date/Time: 06/16/2017 2:52 PM
--- NOTE | 2017-06-16 14:57 | EMERGENCY ROOM VISIT NOTE ---
History First contact with patient: 14:15 Chief Complaint: ILLNESS Stated Complaint: ILLNESS History of Present Illness The patient is a 76 year old male who presents to the Emergency Room with complaints of nausea and dizziness. 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 This morning he started feeling dizzy at 10am. He went to lay down and felt nauseated and vomited. His dizziness is worse with movement of his head. He has vomited 15 times without any blood. He denies any headache, visual changes, arm weakness, leg weakness, dysarthria, difficulty swallowing He denies any recent take out food, denies any abdominal pain, diarrhea, constipation He denies any muscle aches, rashes or joint pain He denies any chest pain, shortness of breath or palpitations Review of Systems CONSTITUTIONAL: No fever, chills, sweats or night sweats. No recent infections. No weight loss or weight gain. NEUROLOGIC: No headaches, or syncopal episodes. He is dizzy HEENT: No hearing or visual changes. No sinus or nasal issues. CARDIOVASCULAR: No chest pain or palpitations. RESPIRATORY: No SOB, dyspnea, cough or hemoptysis. GASTROINTESTINAL: Nauseated and vomiting no diarrhea, constipation, reflux, melena or hematochezia. GENITOURINARY: No dysuria, frequency, urgency, incontinence or hematuria. MUSCULOSKELETAL: no muscle pain or joint pain SKIN: No rashes or skin lesions. HEMATOLOGIC: No bleeding or abnormal bruising Past Medical/Surgical History Medical Problems: (1) Abnormal involuntary movement (2) Appendectomy (3) Heart disease (4) Hernia repair (5) Left arm pain (6) Left face and left arm tingling (7) Left facial numbness (8) Left-eye droop (9) Left-sided weakness (10) Lyme disease (11) Neurological symptoms (12) PURE HYPERCHOLESTEROLEM (13) Repair of rotator cuff by suture (14) Seizure (15) TIA (transient ischemic attack) (16) TRANS CEREB ISCHEMIA NOS (17) Weakness Surgical Problems: (1) H/O aortic aneurysm repair (2) H/O aortic valve replacement Family History Cancer Heart disease Social History Smoking Status: Never Smoker Alcohol Use: occasionally Drug Use: none Marital Status: Housing Status: lives with family Occupation Status: retired Current/Historical Medications Scheduled Aspirin (Aspirin Ec), 81 MG PO QAM Lamotrigine (Lamotrigine Er), 100 MG PO BID Allergies NKDA Physical Exam Vital Signs Date Time Temp Pulse Resp B/P (MAP) Pulse Ox O2 Delivery O2 Flow Rate FiO2 06/16/17 16:56 65 16 125/81 96 Room Air 06/16/17 15:44 60 16 97 Room Air 06/16/17 14:19 69 06/16/17 14:15 36.5 55 18 151/94 96 Room Air Physical Exam General: patient appears disheveled and uncomfortable in bed HEENT: Head - normocephalic and atraumatic. Pupils are equal, round, and reactive to light. Extraocular eye muscles are intact and sclera are anicteric. Ears - bilaterally patent canals with noninjected tympanic membranes and no evidence of hemotympanum. Nose - moist nasal mucosa without discharge. Mouth - moist buccal mucosa. Oropharynx is nonerythematous and there is no tonsillar exudate or edema noted. Neck: Supple; no JVD, nuchal rigidity, cervical lymphadenopathy, or auscultated bruits. Heart: Regular rate and rhythm. There is a normal S1 and S2 with no murmurs, clicks, or gallops appreciated. Lungs: Clear to auscultation bilaterally with no wheezes, rales, or rhonchi. Abdomen: Soft, mild general tenderness, nondistended, with good bowel sounds. There are no palpable pulsatile masses or hepatosplenomegaly. There is no guarding, rigidity, or rebound noted. Extremities: No evidence of cyanosis, clubbing, or edema. There are easily palpable peripheral pulses. Neuro:The patient is awake and alert, oriented to day, time, and place. Muscle strength is 5/5 in all 4 extremities. The patient has equal school admissions representative strength and equal pedal push and pull. There are no cerebellar signs. Cranial nerve: 2-12 without any focal deficits Medical Decision & Procedures Laboratory Results 06/16/17 14:37 Red Blood Count 4.75, Mean Corpuscular Volume 93.1, Mean Corpuscular Hemoglobin 32.4, Mean Corpuscular Hemoglobin Concent 34.8, Mean Platelet Volume 10.1, Neutrophils (%) (Auto) 62.3, Lymphocytes (%) (Auto) 26.0, Monocytes (%) (Auto) 9.1, Eosinophils (%) (Auto) 1.9, Basophils (%) (Auto) 0.6, Neutrophils # (Auto) 5.20, Lymphocytes # (Auto) 2.17, Monocytes # (Auto) 0.76, Eosinophils # (Auto) 0.16, Basophils # (Auto) 0.05 06/16/17 14:37 Test 06/16/17 14:37 White Blood Count 8.35 K/uL (4.8-10.8) Red Blood Count 4.75 M/uL (4.7-6.1) Hemoglobin 15.4 g/dL (14.0-18.0) Hematocrit 44.2 % (42-52) Mean Corpuscular Volume 93.1 fL (80-100) Mean Corpuscular Hemoglobin 32.4 pg (25-34) Mean Corpuscular Hemoglobin Concent 34.8 g/dl (32-36) Platelet Count 165 K/uL (130-400) Mean Platelet Volume 10.1 fL (7.4-10.4) Neutrophils (%) (Auto) 62.3 % Lymphocytes (%) (Auto) 26.0 % Monocytes (%) (Auto) 9.1 % Eosinophils (%) (Auto) 1.9 % Basophils (%) (Auto) 0.6 % Neutrophils # (Auto) 5.20 K/uL (1.4-6.5) Lymphocytes # (Auto) 2.17 K/uL (1.2-3.4) Monocytes # (Auto) 0.76 K/uL (0.11-0.59) Eosinophils # (Auto) 0.16 K/uL (0-0.5) Basophils # (Auto) 0.05 K/uL (0-0.2) RDW Standard Deviation 46.4 fL (36.4-46.3) RDW Coefficient of Variation 13.6 % (11.5-14.5) Immature Granulocyte % (Auto) 0.1 % Immature Granulocyte # (Auto) 0.01 K/uL (0.00-0.02) Anion Gap 6.0 mmol/L (3-11) Est Creatinine Clear Calc Drug Dose 63.0 ml/min Estimated GFR () 81.4 Estimated GFR (Non- 70.2 BUN/Creatinine Ratio 17.2 (10-20) Calcium Level 8.8 mg/dl (8.5-10.1) Total Bilirubin 0.6 mg/dl (0.2-1) Direct Bilirubin 0.1 mg/dl (0-0.2) Aspartate Amino Transf (AST/SGOT) 18 U/L (15-37) Alanine Aminotransferase (ALT/SGPT) 26 U/L (12-78) Alkaline Phosphatase 76 U/L (45-117) Total Protein 7.0 gm/dl (6.4-8.2) Albumin 3.7 gm/dl (3.4-5.0) Lipase 140 U/L (73-393) Medications Administered Medications (Trade) Dose Ordered Sig/Nereida Route Start Time Stop Time Status Last Admin Dose Admin Ondansetron HCl (Zofran Inj) 4 mg NOW STAT IV 06/16/17 14:41 06/16/17 14:56 DC 06/16/17 15:01 4 MG Sodium Chloride 1,000 ml @ 999 mls/hr Q1H1M IV 06/16/17 14:45 07/16/17 14:44 06/16/17 15:02 999 MLS/HR Diazepam (Valium Inj) 2 mg NOW STAT IV 06/16/17 15:16 06/16/17 15:17 DC 06/16/17 15:21 2 MG Diazepam (Valium Inj) 2 mg NOW STAT IV 06/16/17 16:05 06/16/17 16:06 DC 06/16/17 16:19 2 MG ED Course 1420: I saw the patient in B7 and a full history and examination were performed 1440: I spoke to Dr. Wilson and labs and imaging were ordered. I ordered IV zofran 4mg and the patient was given a L of IVF 1550: Spoke to the patient and he was still feeling dizzy after Dr. Wilson ordered him 2mg of valium. I ordered him another 2mg of valium and let him know that his CT head did not show any acute findings 1655: I spoke to Dr. Jefferson who agreed to evaluate the patient for observation in the hospital Medical Decision 76 year old male with history of stroke who presented with acute onset of dizziness He had a normal CBC, CMP, CXR and Head CT. He was given 1L of fluids, zofran and 4mg. He was then reevaluated by Dr. Wilson who prescribed him with 2mg of valium which improved his symptoms temporarily but he was still unable to stand and felt very dizzy. We therefore gave him another 2mg of valium but his symptoms did not improve. His CBC and CMP were normal and his CT of his head did not show any acute process. The patients symptoms seem to be consistent with a peripheral cause of vertigo but due to his previous rakel of stroke and persistent symptoms he will need to be evaluated for observation and many need further imaging studies. Impression Primary Impression: Vertigo Departure Information Dispostion Admitted as an inpatient Condition POOR Referrals Keith Smith M.D. (PCP) Patient Instructions [facility]
[2017-06-16] MEDS ORDERED: LAMO1TAB76 PO (15:13)
[2017-06-16 15:14] LABS: ALBUMIN 3.7 gm/dl (3.4-5.0); CALCIUM 8.8 mg/dl (8.5-10.1); CREATININE 1.03 mg/dl (0.60-1.40); POTASSIUM 3.7 mmol/L (3.5-5.1)
[2017-06-16] MEDS ORDERED: DIAZEPAM INJ 5 MG/ML 2 ML CARP IV STA ×2 (15:16→16:05)
--- NOTE | 2017-06-16 15:36 | DIAGNOSTIC IMAGING REPORT ---
CT HEAD WITHOUT CONTRAST (CT) CLINICAL HISTORY: Nausea, vomiting. History of stroke. COMPARISON STUDY: 10/22/2016 TECHNIQUE: Axial CT of the brain is performed from the vertex to the skull base. IV contrast was not administered for this examination. A dose lowering technique was utilized adhering to the principles of ALARA. CT DOSE: 614.27 mGy.cm FINDINGS: No intra or extra-axial mass lesions are visualized. There is no CT evidence of acute cortical infarction. There is no evidence of midline shift. There is no acute hemorrhage. No calvarial fractures are visualized. There are minimal white matter hypodensities likely on a small vessel basis. There is no evidence of pathologic ventricular dilatation. There is no evidence of acute sinusitis IMPRESSION: No acute intracranial findings Electronically signed by: Uvaldo Molina M.D. 06/16/2017 3:34 PM Dictated Date/Time: 06/16/2017 3:33 PM
--- NOTE | 2017-06-16 17:14 | EMERGENCY ROOM VISIT NOTE ---
History Report prepared by Yumiko: Satish Gilman Under the Supervision of: Dr. Messi Wilson D.O. First contact with patient: 14:15 Chief Complaint: ILLNESS Stated Complaint: ILLNESS History of Present Illness The patient is a 76 year old male who presents to the Emergency Room with complaints of sudden onset nausea and dizziness starting around 1000 this morning. The patient states that the dizziness feels like a spinning and is worse with lying down, bending over, and moving his head, and it is improved with sitting up. The patient states that he vomited 10-15 times already, and there was no blood in his vomit. The patient has a past medical history of a stroke 4.5 years ago that affected his right side, and he has an aortic valve replacement. The patient is not on any blood thinners, and he is currently on Lamictal for past seizures. Pt denies fevers, chills, ringing in his ears, cough , runny nose, weakness, numbness, abdominal pain, chest pain, shortness of breath, diarrhea, pain with urination, and melena. Source of History: patient Onset: 1000 this morning Position: other (global) Quality: other (nausea and dizziness) Timing: other (sudden onset) Modifying Factors (Worsening): other (laying down, bending over, and turning his head) Modifying Factors (Relieving): other (sitting up) Associated Symptoms: + vomiting, No cough, No abdominal pain, No weakness, No numbness Review of Systems See HPI for pertinent positives & negatives. A total of 10 systems reviewed and were otherwise negative. Past Medical & Surgical Medical Problems: (1) Abnormal involuntary movement (2) Appendectomy (3) Heart disease (4) Hernia repair (5) Left arm pain (6) Left face and left arm tingling (7) Left facial numbness (8) Left-eye droop (9) Left-sided weakness (10) Lyme disease (11) Neurological symptoms (12) PURE HYPERCHOLESTEROLEM (13) Repair of rotator cuff by suture (14) Seizure (15) TIA (transient ischemic attack) (16) TRANS CEREB ISCHEMIA NOS (17) Weakness Surgical Problems: (1) H/O aortic aneurysm repair (2) H/O aortic valve replacement Family History Cancer Heart disease Social History Smoking Status: Never Smoker Alcohol Use: occasionally Drug Use: none Marital Status: Housing Status: lives with family Occupation Status: retired Current/Historical Medications Scheduled Aspirin (Aspirin Ec), 81 MG PO QAM Lamotrigine (Lamotrigine Er), 100 MG PO BID Allergies Coded Allergies: Codeine (Verified Adverse Reaction, Intermediate, GI SYMPTOMS, 06/16/17) Physical Exam Vital Signs Date Time Temp Pulse Resp B/P (MAP) Pulse Ox O2 Delivery O2 Flow Rate FiO2 06/16/17 16:56 65 16 125/81 96 Room Air 06/16/17 15:44 60 16 97 Room Air 06/16/17 14:19 69 06/16/17 14:15 36.5 55 18 151/94 96 Room Air Physical Exam GENERAL: Sitting up in bed, disheveled, uncomfortable, non-toxic, symptoms worsened with laying flat/changing positions EYE EXAM: normal conjunctiva. PERRL and EOM's intact. OROPHARYNX: no exudate, no erythema, lips, buccal mucosa, and tongue normal and mucous membranes are moist NECK: supple, no nuchal rigidity, no adenopathy, non-tender LUNGS: Clear to auscultation. Normal chest wall mechanics HEART: no murmurs, S1 normal and S2 normal ABDOMEN: abdomen soft, non-tender, normo-active bowel sounds, no masses, no rebound or guarding. BACK: Back is symmetrical on inspection and there is no deformity, no midline tenderness, no CVA tenderness. SKIN: no rashes and no bruising UPPER EXTREMITIES: upper extremities are grossly normal. LOWER EXTREMITIES: No pitting edema. NEURO EXAM: Normal sensorium, cranial nerves II-XII intact, normal speech, no weakness of arms, no weakness of legs. No drift. Finger to nose intact. Sensation intact. Rapid alternating movements of the upper extremities intact. Medical Decision & Procedures ER Provider Diagnostic Interpretation: Radiology results as stated below per my review and the radiologist's interpretation: CHEST ONE VIEW PORTABLE CLINICAL HISTORY: Dizzy. Chest pain. COMPARISON STUDY: Chest radiograph October 22, 2016. FINDINGS: There are median sternotomy wires and mediastinal surgical clips. No pneumothorax or pleural effusion is present. There is no evidence for pulmonary edema. Tortuosity of the descending thoracic aorta is again noted. Moderate cardiomegaly is unchanged. There is no consolidation to suggest pneumonia. The appearance of the chest is unchanged. IMPRESSION: No acute cardiopulmonary findings. No change in appearance of the chest. Electronically signed by: [place] Gunn M.D. 06/16/2017 2:53 PM Dictated Date/Time: 06/16/2017 2:[address] HEAD WITHOUT CONTRAST (CT) CLINICAL HISTORY: Nausea, vomiting. History of stroke. COMPARISON STUDY: 10/22/2016 TECHNIQUE: Axial CT of the brain is performed from the vertex to the skull base. IV contrast was not administered for this examination. A dose lowering technique was utilized adhering to the principles of ALARA. CT DOSE: 614.27 mGy.cm FINDINGS: No intra or extra-axial mass lesions are visualized. There is no CT evidence of acute cortical infarction. There is no evidence of midline shift. There is no acute hemorrhage. No calvarial fractures are visualized. There are minimal white matter hypodensities likely on a small vessel basis. There is no evidence of pathologic ventricular dilatation. There is no evidence of acute sinusitis IMPRESSION: No acute intracranial findings Electronically signed by: Uvaldo Molina M.D. 06/16/2017 3:34 PM Dictated Date/Time: 06/16/2017 3:33 PM Laboratory Results 06/16/17 14:37 Red Blood Count 4.75, Mean Corpuscular Volume 93.1, Mean Corpuscular Hemoglobin 32.4, Mean Corpuscular Hemoglobin Concent 34.8, Mean Platelet Volume 10.1, Neutrophils (%) (Auto) 62.3, Lymphocytes (%) (Auto) 26.0, Monocytes (%) (Auto) 9.1, Eosinophils (%) (Auto) 1.9, Basophils (%) (Auto) 0.6, Neutrophils # (Auto) 5.20, Lymphocytes # (Auto) 2.17, Monocytes # (Auto) 0.76, Eosinophils # (Auto) 0.16, Basophils # (Auto) 0.05 06/16/17 14:37 Test 06/16/17 14:37 White Blood Count 8.35 K/uL (4.8-10.8) Red Blood Count 4.75 M/uL (4.7-6.1) Hemoglobin 15.4 g/dL (14.0-18.0) Hematocrit 44.2 % (42-52) Mean Corpuscular Volume 93.1 fL (80-100) Mean Corpuscular Hemoglobin 32.4 pg (25-34) Mean Corpuscular Hemoglobin Concent 34.8 g/dl (32-36) Platelet Count 165 K/uL (130-400) Mean Platelet Volume 10.1 fL (7.4-10.4) Neutrophils (%) (Auto) 62.3 % Lymphocytes (%) (Auto) 26.0 % Monocytes (%) (Auto) 9.1 % Eosinophils (%) (Auto) 1.9 % Basophils (%) (Auto) 0.6 % Neutrophils # (Auto) 5.20 K/uL (1.4-6.5) Lymphocytes # (Auto) 2.17 K/uL (1.2-3.4) Monocytes # (Auto) 0.76 K/uL (0.11-0.59) Eosinophils # (Auto) 0.16 K/uL (0-0.5) Basophils # (Auto) 0.05 K/uL (0-0.2) RDW Standard Deviation 46.4 fL (36.4-46.3) RDW Coefficient of Variation 13.6 % (11.5-14.5) Immature Granulocyte % (Auto) 0.1 % Immature Granulocyte # (Auto) 0.01 K/uL (0.00-0.02) Anion Gap 6.0 mmol/L (3-11) Est Creatinine Clear Calc Drug Dose 63.0 ml/min Estimated GFR () 81.4 Estimated GFR (Non- 70.2 BUN/Creatinine Ratio 17.2 (10-20) Calcium Level 8.8 mg/dl (8.5-10.1) Total Bilirubin 0.6 mg/dl (0.2-1) Direct Bilirubin 0.1 mg/dl (0-0.2) Aspartate Amino Transf (AST/SGOT) 18 U/L (15-37) Alanine Aminotransferase (ALT/SGPT) 26 U/L (12-78) Alkaline Phosphatase 76 U/L (45-117) Total Protein 7.0 gm/dl (6.4-8.2) Albumin 3.7 gm/dl (3.4-5.0) Lipase 140 U/L (73-393) Laboratory results per my review. Medications Administered Medications (Trade) Dose Ordered Sig/Nereida Route Start Time Stop Time Status Last Admin Dose Admin Ondansetron HCl (Zofran Inj) 4 mg NOW STAT IV 06/16/17 14:41 06/16/17 14:56 DC 06/16/17 15:01 4 MG Sodium Chloride 1,000 ml @ 999 mls/hr Q1H1M IV 06/16/17 14:45 07/16/17 14:44 06/16/17 15:02 999 MLS/HR Diazepam (Valium Inj) 2 mg NOW STAT IV 06/16/17 15:16 06/16/17 15:17 DC 06/16/17 15:21 2 MG Diazepam (Valium Inj) 2 mg NOW STAT IV 06/16/17 16:05 06/16/17 16:06 DC 06/16/17 16:19 2 MG ECG Indication: nausea, other (dizziness) Rate (beats per minute): 63 Rhythm: sinus rhythm Findings: PVC, no ectopy ED Course ED COURSE: Vital signs were reviewed and showed situational hypertension The patients medical record was reviewed The above diagnostic studies were performed and reviewed. ED treatments and interventions as stated above. 1415: The patient was evaluated in room B7. A complete history and physical examination was performed. 1441: Zofran 4mg IV 1445: Sodium Chloride 1000 ml @ 999 mls/hr IV 1516: Valium 2mg IV 1605: Valium 2mg IV 1634: I reevaluated the patient, and he was feeling better. 1647: Upon reevaluation, the patient is still dizzy while trying to stand.I discussed my findings with the patient and he understands and agrees with the treatment plan. Based on the patients age, coexisting illnesses, exam and lab findings the decision to treat as an inpatient was made. The patient remained stable while under my care. The patient will be evaluated for further management. 1652: Dr. Jefferson has agreed to evaluate the patient for further management and disposition. Medical Decision Differential diagnosis includes etiologies such as benign positional vertigo, dehydration, hypovolemia, anemia, tumor, infection, hypoglycemia, electrolyte abnormalities, cardiac sources, intracerebral event, toxicologic, neurologic, as well as others were entertained. Patient is a 76-year-old male who presents to ER for dizziness which started suddenly prior to arrival. Patient notes that this worsens with any kind of movement testing turning bending or legs down. Does have a previous history of a stroke. He has no focal deficit on my exam. CT head was negative. He was evaluated independently of the resident. Patient was given IV fluids, Zofran, Antivert and 2 doses of Valium without significant improvement. Patient unable to move without getting severely nauseous vomiting. Has been multiple attempts we elect discussed case with internal medicine as this could be a posterior stroke although I do favor this is likely peripheral vertigo based on symptoms and presentation. Medication Reconcilliation Current Medication List: was personally reviewed by me Blood Pressure Screening Patient's blood pressure: Elevated blood pressure monitored by the hospitalist Consults Time Called: 1650 Consulting Physician: Dr. Jefferson Returned Call: 1651 Dr. Jefferson has agreed to evaluate the patient for further management and disposition. Impression Primary Impression: Vertigo Scribe Attestation The scribe's documentation has been prepared under my direction and personally reviewed by me in its entirety. I confirm that the note above accurately reflects all work, treatment, procedures, and medical decision making performed by me. Departure Information Dispostion Being Evaluated By Hospitalist Referrals Keith Smith M.D. (PCP) Patient Instructions [facility]
[2017-06-16] MEDS ORDERED: ONDANSETRON INJ 2 MG/ML 2 ML VIAL IV PRN (18:45)
[2017-06-16] MEDS ORDERED: MECLIZINE HCL 25 MG TAB PO PRN (18:45)
[2017-06-16] MEDS ORDERED: ACETAMINOPHEN 325 MG TAB PO PRN (18:45)
[2017-06-16 19:20] LABS: PTT PATIENT 23.7 SECONDS (21.0-31.0)
[2017-06-16] MEDS ORDERED: IV FLUIDS COMPLETED PRN (20:15)
--- NOTE | 2017-06-16 20:22 | History and Physical ---
History & Physical Date & Time of Service: Jun 16, 2017 at 18:54 Chief Complaint: Illness Primary Care Physician: Keith Smith M.D. History of Present Illness Source: patient, family (daughter and at bedside), hospital records Mr Lopez is a 76 year old male with history of CVA who presents to the ER with 1 day history of nausea, vomiting and vertigo (feels like the room is spinning) . He woke up this morning and felt slightly off balance but was able to get around fine. Then while bending over he first noticed nausea and dizziness ( room spinning) which lasted for seconds and then resolved. He had a few further episodes like this and then again while lying down which lasted for minutes. Then when walking over to the fridge and turning his head to the side he felt nauseous and started dry heaving with associated room spinning. The episode was severe and he continued to be nauseous so called for an ambulance and came to the ER. In the ER he has received 2mg Valium x2 without much relief. However he does note he feels better now than when he came in and initially when seen he was no longer experiencing the room spinning sensation until he relaxed his head back again. His symptoms improve on closing his eyes. He denies any headache, hearing loss, ear fullness, lateralizing weakness or change in sensation, change in speech hearing or vision (other than room spinning). Past Medical/Surgical History Medical Problems: (1) Appendectomy Status: Resolved (2) Heart disease Status: Chronic (3) Hernia repair Status: Resolved (4) Left-eye droop Status: Chronic (5) PURE HYPERCHOLESTEROLEM Status: Chronic (6) Repair of rotator cuff by suture Status: Resolved (7) Seizure Status: Resolved (8) TIA (transient ischemic attack) Status: Resolved (9) TRANS CEREB ISCHEMIA NOS Status: Resolved (10) Weakness Status: Resolved Surgical Problems: (1) H/O aortic aneurysm repair Status: Resolved (2) H/O aortic valve replacement Status: Resolved Family History Cancer Heart disease Social History Smoking Status: Never Smoker Drug Use: none Marital Status: Housing status: lives with family Occupational Status: retired Immunizations History of Influenza Vaccine: Yes Influenza Vaccine Date: Feb 07, 2014 History of Tetanus Vaccine?: Unknown History of Pneumococcal: Unknown Pneumococcal Date: Mar 17, 2013 History of Hepatitis B Vaccine: Unknown Multi-Drug Resistant Organisms History of MDRO: No Allergies Coded Allergies: Codeine (Verified Adverse Reaction, Intermediate, GI SYMPTOMS, 06/16/17) Home Medications Scheduled Aspirin (Aspirin Ec), 81 MG PO QAM Lamotrigine (Lamotrigine Er), 100 MG PO BID Prednisone (Prednisone), 2 TAB PO DAILY Scheduled PRN Meclizine Hcl (Meclizine Hcl), 1 TAB PO TID PRN for vertigo Review of Systems Constitutional: No fever, No chills Eyes: No worsening of vision, No eye pain, No redness, No discharge, No diplopia ENT: + nasal symptoms (recent nasal congestion for the past 4 days), + tinnitus (few seconds of beeping when he first wakes up in the morning), No hearing loss , No unusual epistaxis, No sore throat, No trouble swallowing Respiratory: No cough, No sputum, No shortness of breath Cardiovascular: No chest pain, No orthopnea Abdomen: + nausea, + vomiting, No pain, No diarrhea, No constipation, No GI bleeding Musculoskeletal: No joint pain, No muscle pain, No swelling Genitourinary - Male: No hematuria, No dysuria Neurologic: + numbness/tingling (longstanding peripheral neuropathy (no acute change)), + balance problems (see HPI), No weakness (no lateralizing), No vertigo Hematologic / Lymphatic: No abnormal bleeding/bruising Integumentary: No rash, No itch Physical Exam Vital Signs Date Time Temp Pulse Resp B/P (MAP) Pulse Ox O2 Delivery O2 Flow Rate FiO2 06/16/17 18:21 67 06/16/17 16:56 65 16 125/81 96 Room Air 06/16/17 15:44 60 16 97 Room Air 06/16/17 14:19 69 06/16/17 14:15 36.5 55 18 151/94 96 Room Air General Appearance: WD/WN, + mild distress (from feeling nauseous and vomiting) Head: normocephalic, atraumatic Eyes: PERRL, sclerae normal, + pertinent finding (left horizontal fast beating nystagmus exacerbated by left gaze, no improvement on fixation, no vertical nystagmus) ENT: pharynx normal, + TM dull (left sided had substantial hard wax in external ear canal which was flushed out with water and removed with curette with no change in symptoms) Neck: supple, no JVD, no carotid bruits, trachea midline Respiratory/Chest: lungs clear, normal breath sounds, no respiratory distress, no accessory muscle use Cardiovascular: regular rate, rhythm, no edema, normal peripheral pulses, + systolic murmur (LUSB 3/6) Abdomen/GI: normal bowel sounds, non tender, soft Back: no CVA tenderness Extremities/Musculoskelatal: no calf tenderness, normal capillary refill, no pedal edema Neurologic/Psych: 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 nml as tested (nystagmus as noted above), no motor /sensory deficits, alert, normal mood/affect, oriented x 3 Skin: normal color, warm/dry, no rash Diagnostics Laboratory Results Results Past 24 Hours Test 06/16/17 14:37 Range/Units White Blood Count 8.35 4.8-10.8 K/uL Red Blood Count 4.75 4.7-6.1 M/uL Hemoglobin 15.4 14.0-18.0 g/dL Hematocrit 44.2 42-52 % Mean Corpuscular Volume 93.1 80-100 fL Mean Corpuscular Hemoglobin 32.4 25-34 pg Mean Corpuscular Hemoglobin Concent 34.8 32-36 g/dl Platelet Count 165 130-400 K/uL Mean Platelet Volume 10.1 7.4-10.4 fL Neutrophils (%) (Auto) 62.3 % Lymphocytes (%) (Auto) 26.0 % Monocytes (%) (Auto) 9.1 % Eosinophils (%) (Auto) 1.9 % Basophils (%) (Auto) 0.6 % Neutrophils # (Auto) 5.20 1.4-6.5 K/uL Lymphocytes # (Auto) 2.17 1.2-3.4 K/uL Monocytes # (Auto) 0.76 0.11-0.59 K/uL Eosinophils # (Auto) 0.16 0-0.5 K/uL Basophils # (Auto) 0.05 0-0.2 K/uL RDW Standard Deviation 46.4 36.4-46.3 fL RDW Coefficient of Variation 13.6 11.5-14.5 % Immature Granulocyte % (Auto) 0.1 % Immature Granulocyte # (Auto) 0.01 0.00-0.02 K/uL Sodium Level 138 136-145 mmol/L Potassium Level 3.7 3.5-5.1 mmol/L Chloride Level 105 98-107 mmol/L Carbon Dioxide Level 27 21-32 mmol/L Anion Gap 6.0 3-11 mmol/L Blood Urea Nitrogen 18 7-18 mg/dl Creatinine 1.03 0.60-1.40 mg/dl Est Creatinine Clear Calc Drug Dose 63.0 ml/min Estimated GFR () 81.4 Estimated GFR (Non- 70.2 BUN/Creatinine Ratio 17.2 10-20 Random Glucose 103 70-99 mg/dl Calcium Level 8.8 8.5-10.1 mg/dl Total Bilirubin 0.6 0.2-1 mg/dl Direct Bilirubin 0.1 0-0.2 mg/dl Aspartate Amino Transf (AST/SGOT) 18 15-37 U/L Alanine Aminotransferase (ALT/SGPT) 26 12-78 U/L Alkaline Phosphatase 76 45-117 U/L Total Protein 7.0 6.4-8.2 gm/dl Albumin 3.7 3.4-5.0 gm/dl Lipase 140 73-393 U/L Diagnostic Radiology CHEST ONE VIEW PORTABLE CLINICAL HISTORY: Dizzy. Chest pain. COMPARISON STUDY: Chest radiograph October 22, 2016. FINDINGS: There are median sternotomy wires and mediastinal surgical clips. No pneumothorax or pleural effusion is present. There is no evidence for pulmonary edema. Tortuosity of the descending thoracic aorta is again noted. Moderate cardiomegaly is unchanged. There is no consolidation to suggest pneumonia. The appearance of the chest is unchanged. IMPRESSION: No acute cardiopulmonary findings. No change in appearance of the chest. Electronically signed by: [place] Gunn M.D. 06/16/2017 2:53 PM Dictated Date/Time: 06/16/2017 2:[address] HEAD WITHOUT CONTRAST (CT) CLINICAL HISTORY: Nausea, vomiting. History of stroke. COMPARISON STUDY: 10/22/2016 TECHNIQUE: Axial CT of the brain is performed from the vertex to the skull base. IV contrast was not administered for this examination. A dose lowering technique was utilized adhering to the principles of ALARA. CT DOSE: 614.27 mGy.cm FINDINGS: No intra or extra-axial mass lesions are visualized. There is no CT evidence of acute cortical infarction. There is no evidence of midline shift. There is no acute hemorrhage. No calvarial fractures are visualized. There are minimal white matter hypodensities likely on a small vessel basis. There is no evidence of pathologic ventricular dilatation. There is no evidence of acute sinusitis IMPRESSION: No acute intracranial findings Electronically signed by: Uvaldo Molina M.D. 06/16/2017 3:34 PM Dictated Date/Time: 06/16/2017 3:33 PM EKG Sinus rhythm with occasional Premature ventricular complexes Moderate voltage criteria for LVH, may be normal variant When compared with ECG of 22-OCT-2016 00:44, Premature ventricular complexes are now Present Rate 63 bpm Impression Assessment and Plan 76 year old male with history of CVA presents with new onset vertigo. Vertigo - episodic brief episodes with predictable head movements fits peripheral vertigo; on examination unilateral horizontal nystagmus suggest right inner ear is the issue - no concerning findings on examination for central vertigo, no motor/sensory deficits, dysarthria on examination - given classical story even with risk factors this is unlikely to be anything other than BPPV. No significant stenosis of vertebrobasilar system on CTA in September 2016. As long as his symptoms continue to improve I will defer further imaging at this stage. 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 Seizure disorder - secondary to above - continue Lamictal, will take level with morning labs Code Full VTE Prophylaxis - lovenox 40 mg SQ daily - TEDs, will defer SCDs given Disposition - observation status due to intractable nausea and vomiting Level of Care Med/Surg Resuscitation Status FULL RESUSCITATION VTE Prophylaxis VTE Risk Assessment Done? Y/N: Yes Risk Level: Moderate Given or contraindicated: Enoxaparin (Lovenox)SQ, T.E.D. Stockings Note Supervising Note Dr. Jefferson I performed a history and physical examination on the patient. I reviewed above note and agree with it. Discussed plan with resident and patient. During my face to face encounter with the patient, all of patient's question's were answered. Additional Copies To Carley Parada M.D.; Keith Smith M.D. Resident Tracking Resident Involvement: Resident Care Provided Care Provided: [facility] Medicine
[2017-06-16] MEDS ORDERED: DIAZEPAM INJ 5 MG/ML 2 ML CARP IV PRN (20:30)
[2017-06-16 20:59] VITALS: BP 163/94; PULSE 66; TEMP 36.6; O2SAT 95; Ht 177.8 cm; Wt 78.2 kg
[2017-06-16] MEDS: ENOXAPARIN 40 MG/0.4 ML SYR SQ SCH (22:05)
[2017-06-16] MEDS: LACTATED RINGER'S 1000ML 1,000 ML IV SCH (22:08)
[2017-06-16] MEDS: MECLIZINE HCL 25 MG TAB PO PRN (23:01)
[2017-06-16 23:10] VITALS: BP 154/93; PULSE 61; TEMP 36.5; O2SAT 97
[2017-06-17] VITALS: O2SAT 95
[2017-06-17] MEDS ORDERED: PNEUMOCOCCAL ADMINISTRATION CHARGE ONE (03:30)
[2017-06-17] MEDS ORDERED: PNEUMOCOCCAL POLYSACCHARIDES 25 MCG/0.5 ML VIAL/SYR IM. ONE (03:30)
[2017-06-17] MEDS: LACTATED RINGER'S 1000ML 1,000 ML IV SCH ×2 (06:07→14:23)
[2017-06-17 07:14] VITALS: BP 158/88; PULSE 66; TEMP 36.6; O2SAT 94
[2017-06-17 07:36] LABS: CALCIUM 8.7 mg/dl (8.5-10.1); CREATININE 0.82 mg/dl (0.60-1.40); POTASSIUM 3.6 mmol/L (3.5-5.1)
[2017-06-17 08:00] VITALS: O2SAT 94
[2017-06-17] MEDS: MECLIZINE HCL 25 MG TAB PO PRN (08:55)
[2017-06-17] MEDS: ASPIRIN 81 MG ECTAB PO SCH (08:56)
[2017-06-17] MEDS ORDERED: GADAVIST IV PRN (12:30)
--- NOTE | 2017-06-17 12:32 | DIAGNOSTIC IMAGING REPORT ---
BRAIN COMBO CLINICAL HISTORY: ?vertebrobasilar vs. brainstem CVA mental status change seizure. COMPARISON STUDY: 10/22/2016 TECHNIQUE: Utilizing a 1.5 Anat magnet and dedicated coil, multiplanar, multiecho imaging of the brain was performed pre and postcontrast administration. IV administration of 10 mL of Gadavist contrast was uneventful. FINDINGS: Diffusion-weighted images are negative for an acute ischemic insult. Mild age-related atrophy and chronic small vessel change. No abnormal postcontrast enhancement. Reticular system is midline. IMPRESSION: Chronic and age-related change. No acute process. No abnormal postcontrast enhancement. The above report was generated using voice recognition software. It may contain grammatical, syntax or spelling errors. Electronically signed by: Jose Smith M.D. 06/17/2017 12:30 PM Dictated Date/Time: 06/17/2017 12:25 PM
[2017-06-17 15:10] VITALS: BP 151/93; PULSE 62; TEMP 36.6; O2SAT 97
--- NOTE | 2017-06-17 16:24 | Family Medicine Progress Note ---
Progress Note Date of Service Jun 17, 2017. Subjective Pt evaluation today including: conversation w/ patient, physical exam, chart review, lab review, review of studies, conversation w/ finance consultant (Dr Parada), review of inpatient medication list Still having some room spinning sensation this morning and feeling nauseous. No nasal congestion, fever, chills. All Other Systems: Reviewed and Negative Medications Current Inpatient Medications Medications (Trade) Dose Ordered Sig/Nereida Route Start Time Stop Time Status Last Admin Dose Admin Enoxaparin Sodium (Lovenox Inj) 40 mg Q24H SQ 06/16/17 21:00 07/16/17 20:59 06/16/17 22:05 40 MG Acetaminophen (Tylenol Tab) 650 mg Q4H PRN PO 06/16/17 18:45 07/16/17 18:44 Ondansetron HCl (Zofran Inj) 4 mg Q6H PRN IV 06/16/17 18:45 07/16/17 18:44 Aspirin (Ecotrin Tab) 81 mg QAM PO 06/17/17 08:00 07/17/17 08:59 06/17/17 08:56 81 MG Lamotrigine (Lamictal Tab) 100 mg BID PO 06/16/17 20:36 07/16/17 20:59 06/17/17 08:55 100 MG Miscellaneous (Iv Fluids Completed) 1 ea PRN PRN N/A 06/16/17 20:15 06/16/18 20:14 Meclizine HCl (Antivert Tab) 25 mg Q8H PRN PO 06/16/17 21:15 07/16/17 18:44 06/17/17 08:55 25 MG Lactated Ringer's 1,000 ml @ 125 mls/hr Q8H IV 06/16/17 21:45 07/16/17 21:44 06/17/17 14:23 125 MLS/HR Gadobutrol (Gadavist) 7.5 mmol UD PRN IV 06/17/17 12:30 06/21/17 12:29 Objective Vital Signs Date Time Temp Pulse Resp B/P (MAP) Pulse Ox O2 Delivery O2 Flow Rate FiO2 06/17/17 15:10 36.6 62 18 151/93 (112) 97 06/17/17 08:00 94 Room Air 06/17/17 07:14 36.6 66 18 158/88 (111) 94 06/17/17 00:00 95 Room Air 06/16/17 23:10 36.5 61 18 154/93 (113) 97 Room Air 06/16/17 20:59 36.6 66 18 163/94 95 Room Air 06/16/17 20:22 63 16 151/96 96 06/16/17 19:00 67 16 06/16/17 18:21 67 06/16/17 16:56 65 16 125/81 96 Room Air Physical Exam General Appearance: no apparent distress Eyes: PERRL, + pertinent finding (right fast beating nystagmus, exacerabted on right lateral gaze, no vertical nystagmus) Neck: no carotid bruits Respiratory/Chest: lungs clear, normal breath sounds, no respiratory distress, no accessory muscle use Cardiovascular: regular rate, rhythm, no murmur Abdomen: normal bowel sounds, non tender, soft Extremities: no calf tenderness Neurologic/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 as tested (all normal), no motor/ sensory deficits (upper and lower limb including cerebellar testing normal), alert, oriented x 3 Laboratory Results 06/17/17 06:26 Test 06/16/17 22:05 06/17/17 06:26 Urine Color YELLOW Urine Appearance CLOUDY (CLEAR) Urine pH 8.0 (4.5-7.5) Urine Specific [place] 1.021 (1.000-1.030) Urine Protein NEG (NEG) Urine Glucose (UA) NEG (NEG) Urine Ketones 1+ (NEG) Urine Occult Blood NEG (NEG) Urine Nitrite NEG (NEG) Urine Bilirubin NEG (NEG) Urine Urobilinogen NEG (NEG) Urine Leukocyte Esterase NEG (NEG) Urine WBC (Auto) 1-5 /hpf (0-5) Urine RBC (Auto) 0-4 /hpf (0-4) Urine Hyaline Casts (Auto) 1-5 /lpf (0-5) Urine Epithelial Cells (Auto) 20-30 /lpf (0-5) Urine Bacteria (Auto) NEG (NEG) Anion Gap 7.0 mmol/L (3-11) Est Creatinine Clear Calc Drug Dose 79.1 ml/min Estimated GFR () 99.6 Estimated GFR (Non- 85.9 BUN/Creatinine Ratio 20.8 (10-20) Calcium Level 8.7 mg/dl (8.5-10.1) Assessment and Plan 76 year old male with history of CVA presents with new onset vertigo. 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) - Continue aspirin, previously on statin, unclear why this was stopped - discussed with Dr Parada and advised not stopped for a neurological reason and advised to continue if he can tolerate it Seizure disorder - secondary to above - continue Lamictal, will take level with morning labs Code Full VTE Prophylaxis - lovenox 40 mg SQ daily - TEDs Disposition - continued observation status due to intractable nausea and vomiting Resident Tracking Resident Involvement: Resident Care Provided Care Provided: Adult Hospital Medicine Reviewed: Pt Seen/Exam by Me History vertigo improved through the day overall but had another episode in the evening. hasn't had anything to eat all day. Constitutional: denies: fever Respiratory: negative: short of breath Cardiovascular: denies chest pain Gastrointestinal/Abdominal: negative: abdominal pain General Appearance: no apparent distress Respiratory: lungs clear, no respiratory distress Cardiovascular: regular rate, rhythm Gastrointestinal: soft Neurologic/Psychiatric: alert, oriented x 3 Skin Characteristics: warm/dry Assessment/Plan Resident Physician Supervision Note: I independently interviewed and examined the patient and verified the brandon history and physical, reviewed labs and image studies, discussed the case with the resident Dr. Sutton and agree with the findings and care plan.
[2017-06-17] MEDS ORDERED: METHYLPREDNISOLONE IV 40 MG in SYRINGE 0 ML IV ONE (16:30)
[2017-06-17] MEDS: ENOXAPARIN 40 MG/0.4 ML SYR SQ SCH (20:40)
[2017-06-17 23:07] VITALS: BP 159/85; PULSE 70; TEMP 36.7; O2SAT 94
[2017-06-18] MEDS: LACTATED RINGER'S 1000ML 1,000 ML IV SCH (00:58)
[2017-06-18] MEDS ORDERED: NURSING VERBAL MED ORDER ONE (04:00)
[2017-06-18 07:07] VITALS: BP 149/93; PULSE 54; TEMP 36.7; O2SAT 95
[2017-06-18] MEDS: ASPIRIN 81 MG ECTAB PO SCH (08:56)
[2017-06-18 11:35] VITALS: BP 149/93; PULSE 54; TEMP 36.7; O2SAT 95
[2017-06-18] MEDS ORDERED: PRED20TA PO (13:20)
[2017-06-18] MEDS ORDERED: MECL1TAB42 PO (13:20)
[2017-06-18] MEDS ORDERED: ATOR-24 PO (13:20)
--- NOTE | 2017-06-18 13:27 | Discharge Instructions ---
Discharge Instructions Date of Service Jun 18, 2017. Admission Reason for Admission: Intractable Nausea And Vomiting, Vertigo Discharge Discharge Diagnosis / Problem: Vertigo Discharge Goals Goal(s): Decrease discomfort, Improve disease control Activity Recommendations Activity Limitations: resume your previous activity . Instructions / Follow-Up Instructions / Follow-Up You were evaluated at [facility] due to intractable nausea and vomiting. This was due to ongoing vertigo. You were evaluated with a CT and MRI scan of your head which did not show any acute stoke. Your vertigo is most likely vestibular neuritis (an infection of your inner ear) and you have been started on a short course of steroids for this. It may also be benign positional paroxysmal vertigo and you should follow up with your primary care physician regarding these diagnoses and for a recheck of your condition. Please call your primary care provider to follow up in the next week. You have been prescribed meclizine to be use as required up to three times/day for relief of you vertigo symptoms. It is unclear why you are not on a statin given history of stroke and you shuold follow up with your primary care doctor regarding this. You were also noted to have a left sided perforated ear drum that appeared chronic and should also have this rechecked by you primary care physician. Current Hospital Diet Patient's current hospital diet: AHA Diet (Heart Healthy) Discharge Diet Recommended Diet: AHA Diet (Heart Healthy) Pending Studies Studies pending at discharge: no Medical Emergencies . Who to Call and When: Medical Emergencies: If at any time you feel your situation is an emergency, please call 911 immediately. . Non-Emergent Contact Non-Emergency issues call your: Primary Care Provider . . "Provider Documentation" section prepared by Lalit Sutton. . VTE Core Measure Inpt VTE Proph given/why not?: Enoxaparin (Lovenox)Madelaine MALONEY
--- NOTE | 2017-06-18 15:35 | Discharge Summary ---
Discharge Summary Date of Service Jun 18, 2017. Discharge Summary Admission Date: Jun 16, 2017 at 18:42 Discharge Date: Jun 18, 2017 Discharge Disposition: Home Principal Diagnosis: Vertigo (likely vestibular neuritis) Immunizations: Have You Had Influenza Vaccine: Yes Influenza Vaccine Date: Feb 07, 2014 History of Tetanus Vaccine?: Unknown History of Pneumococcal: Unknown Pneumococcal Date: Mar 17, 2013 History of Hepatitis B Vaccine: Unknown Medication Reconciliation New Medications: Meclizine Hcl (Meclizine Hcl) 25 Mg Tab 1 TAB PO TID PRN for vertigo for 10 Days, #20 TAB Prednisone (Prednisone) 20 Mg Tab 2 TAB PO DAILY for 3 Days, #6 TAB Continued Medications: Aspirin (Aspirin Ec) 81 Mg Tab 81 MG PO QAM Lamotrigine (Lamotrigine Er) 100 Mg Tab 100 MG PO BID Discharge Exam Symptoms resolved this morning. No longer having vertigo, nausea or vomiting. 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 Vertigo - episodic brief episodes with predictable head movements fits peripheral vertigo; on examination unilateral horizontal nystagmus suggest right inner ear is the issue - CT/MRI brain - nill acute - Most likely vestibular neuritis and improvement with prednisone. Home on prednisone. 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 Discharge Instructions Please refer to the electronic Patient Visit Report (Discharge Instructions) for additional information. Follow-Up Follow up with PCP in the next 1-2 weeks Additional Copies To Keith Smith M.D. Reviewed: Pt Seen/Exam by Me History no chest pain, shortness of breath. dizziness much improved. Constitutional: denies: fever Respiratory: negative: short of breath Cardiovascular: denies chest pain General Appearance: no apparent distress Respiratory: lungs clear, no respiratory distress Cardiovascular: regular rate, rhythm Neurologic/Psychiatric: alert, oriented x 3 Assessment/Plan Resident Physician Supervision Note: I independently interviewed and examined the patient and verified the brandon history and physical, reviewed labs and image studies, discussed the case with the resident Dr. Sutton and agree with the findings and care plan. Time spent in discharge 35min
== END 2017-06-18 14:57 | disposition home or self-care (01) ==
LOC: EDBD 14:13 → C.EDB 14:15 → C.4E 18:42 → ENRESERV 19:12 → CANRESERV 19:12 → ENRESERV 19:44
PROVIDERS: ADMIT Internal Medicine Sports Medicine; ATTEND Family Medicine
DX: R42 Dizziness and giddiness (principal); E78.00 Pure hypercholesterolemia, unspecified; Z90.89 Acquired absence of other organs; Z95.2 Presence of prosthetic heart valve; Z86.73 Personal history of transient ischemic attack (TIA), and cerebral infarction without residual deficits; Z79.82 Long term (current) use of aspirin; Z80.9 Family history of malignant neoplasm, unspecified; Z82.49 Family history of ischemic heart disease and other diseases of the circulatory system

== ENCOUNTER 2017-08-08 14:19 | Emergency (ER) | payer BC ==
[~2017-08-08] VITALS: Ht 177.8 cm; Wt 81.3 kg
[2017-08-08 14:22] VITALS: TEMP 36.4; Ht 177.8 cm; Wt 81.3 kg
[2017-08-08] MEDS ORDERED: OPTIRAY 320 IV PRN (15:00)
[2017-08-08 15:04] LABS: BASO % 0.8 %; BASO ABS # 0.06 K/uL (0-0.2); EOS % 3.1 %; EOS ABS # 0.22 K/uL (0-0.5); HEMOGLOBIN 15.6 g/dL (14.0-18.0); IG# 0.01 K/uL (0.00-0.02); LYMPH % 30.5 %; LYMPH ABS # 2.18 K/uL (1.2-3.4); MEAN CORPUSCULAR HEMOGLOBIN 31.9 pg (25-34); MEAN CORPUSCULAR HGB CONC 34.7 g/dl (32-36); MONO % 11.8 %; MONO ABS # 0.84 K/uL (0.11-0.59); NEUT % 53.7 %; NEUT ABS # 3.83 K/uL (1.4-6.5); PLATELET COUNT 169 K/uL (130-400); RED CELL DISTRIBUTION WIDTH CV 13.5 % (11.5-14.5); RED CELL DISTRIBUTION WIDTH SD 45.8 fL (36.4-46.3); WHITE BLOOD COUNT 7.14 K/uL (4.8-10.8)
[2017-08-08] MEDS ORDERED: VGR50 PO (15:12)
[2017-08-08] MEDS ORDERED: ANT25 PO (15:12)
[2017-08-08] MEDS ORDERED: LAMO1TAB76 PO (15:13)
[2017-08-08 15:14] LABS: PTT PATIENT 27.3 SECONDS (21.0-31.0)
[2017-08-08 15:22] LABS: ALBUMIN 3.6 gm/dl (3.4-5.0); ALT/SGPT 23 U/L (12-78); BLOOD UREA NITROGEN 14 mg/dl (7-18); CARBON DIOXIDE 26 mmol/L (21-32); CREATININE 0.86 mg/dl (0.60-1.40); GLUCOSE 89 mg/dl (70-99); LIPASE 235 U/L (73-393); POTASSIUM 4.1 mmol/L (3.5-5.1); SODIUM 138 mmol/L (136-145)
[2017-08-08 15:24] VITALS: O2SAT 94
--- NOTE | 2017-08-08 15:29 | DIAGNOSTIC IMAGING REPORT ---
CHEST ONE VIEW PORTABLE CLINICAL HISTORY: 76 years-old Male presenting with EVALUATE ALTERED MENTAL STATUS/WEAKNESS. TECHNIQUE: Portable upright AP view of the chest was obtained. COMPARISON: 06/16/2017. FINDINGS: Median sternotomy wires and mediastinal surgical clip. Epicardial pacing wires may also be present. Cardiac silhouette normal in size. Tortuosity of the descending thoracic aorta, unchanged. Lungs and pleural spaces clear. Osseous structures normal. Upper abdomen normal. IMPRESSION: 1. No acute cardiopulmonary disease. Electronically signed by: Yves Diana M.D. 08/08/2017 3:27 PM Dictated Date/Time: 08/08/2017 3:27 PM
[2017-08-08 15:30] LABS: ALKALINE PHOSPHATASE 77 U/L (45-117); AST/SGOT 18 U/L (15-37); TOTAL PROTEIN 6.8 gm/dl (6.4-8.2)
--- NOTE | 2017-08-08 16:12 | DIAGNOSTIC IMAGING REPORT ---
HEAD WITHOUT CONTRAST (CT) CLINICAL HISTORY: 76 years-old Male presenting with EVALUATE ALTERED MENTAL STATUS/WEAKNESS. TECHNIQUE: Multidetector CT imaging of the head was performed without the use of intravenous contrast. IV contrast: None. A dose lowering technique was used consistent with the principles of ALARA (as low as reasonably achievable). COMPARISON: MR brain from 06/17/[address] head from 06/16/2017. CT DOSE (mGy.cm): The estimated cumulative dose is 1263.94 inclusive of the CTA neck. FINDINGS: Straight Edger topogram: Median sternotomy wires noted. Proportional ventricular and sulcal prominence, likely age-related parenchymal volume loss. Periventricular and subcortical white matter hypoattenuation, nonspecific but likely indicative of chronic small vessel ischemic change. No mass effect or midline shift. No hemorrhage or acute territorial infarct. No extra-axial fluid collection. Paranasal sinuses and mastoid air cells clear. Calvarium intact. IMPRESSION: 1. No acute intracranial abnormality. Electronically signed by: Yves Diana M.D. 08/08/2017 4:11 PM Dictated Date/Time: 08/08/2017 4:09 PM
--- NOTE | 2017-08-08 16:15 | DIAGNOSTIC IMAGING REPORT ---
NECK ANGIO WITH CONTRAST CLINICAL HISTORY: 76 years-old Male presenting with left-sided neck pain, numbness, history of stroke. TECHNIQUE: Multidetector CT angiography of the neck was performed after the administration of intravenous contrast. 3-D volumetric and/or maximum intensity projection (MIP) images were subsequently reconstructed for review. IV contrast: 119 mL of Optiray 320. A dose lowering technique was used consistent with the principles of ALARA (as low as reasonably achievable). Stenosis measurements were based on NASCET-like criteria. COMPARISON: Carotid Doppler ultrasound from 09/12/2016 and CTA neck from 02/11/2016. CT DOSE (mGy.cm): The estimated cumulative dose is 1263.94 mGy.cm. 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 Nondiagnostic evaluation. Contrast was injected into the left upper extremity and opacifies the left brachiocephalic vein and refluxes into the left internal jugular vein as well as smaller cervical veins. Contrast opacifies the SVC. No contrast is evident in the aortic arch. Atherosclerosis of aortic arch. Cervical arteries not able to be evaluated. Limited intracranial dilation within normal limits. No gross abnormality of the soft tissues of the neck allowing for the phase of contrast. Bandlike opacities in the posterior right upper lobe, possibly atelectasis or scarring. IMPRESSION: Nondiagnostic evaluation secondary to the timing of the contrast bolus. If there is continuing need for evaluation of the cervical vessels, carotid Doppler ultrasound could be considered versus repeat CTA neck depending on the patient's renal function. Electronically signed by: Yves Diana M.D. 08/08/2017 4:14 PM Dictated Date/Time: 08/08/2017 4:11 PM
--- NOTE | 2017-08-08 17:58 | DIAGNOSTIC IMAGING REPORT ---
CAROTID DOPPLER NECK ART CLINICAL HISTORY: 76 years-old Male presenting with left neck pain. TECHNIQUE: Real-time grayscale and color and spectral Doppler ultrasound imaging of the bilateral carotid arteries was performed. NASCET criteria was used in evaluating this study. COMPARISON: 09/12/2016 and CTA neck performed earlier the same day. FINDINGS: Right: Common carotid: Patent. Peak systolic velocity 76 cm/s. Internal carotid artery: Patent. Peak systolic velocity 61 cm/s. Systolic ratio: 0.8. External carotid artery: Patent. Peak systolic velocity 74 cm/s. Left: Common carotid: Patent. Peak systolic velocity 78 cm/s. Internal carotid artery: Patent. Peak systolic velocity 72 cm/s. Systolic ratio: 0.9. External carotid artery: Patent. Peak systolic velocity 74 cm/s. Bilateral antegrade flow within the vertebral arteries. Reference ranges: Stenosis measurements are compared to reference velocity parameters. ICA peak systolic velocity (PSV) < 125 cm/s normal or indicating < 50% stenosis; ICA PSV 125-230 cm/s equivalent to 50-69% stenosis; ICA PSV > 230 cm/s equivalent to greater than or equal to 70% stenosis. ICA PSV to common carotid artery PSV ratio < 2 normal or < 50% stenosis; 2-4 equates to 50-69% stenosis, > 4 equates to greater than or equal to 70% stenosis. Normal ICA end-diastolic velocity less than 40. Blood pressure Brachial: Right: 140/86 mmHg, Left: 147/87 mmHg. IMPRESSION: No hemodynamically significant stenosis seen within the carotid arteries. Electronically signed by: Yves Diana M.D. 08/08/2017 5:57 PM Dictated Date/Time: 08/08/2017 5:56 PM
--- NOTE | 2017-08-08 18:05 | EMERGENCY ROOM VISIT NOTE ---
History Report prepared by Yumiko: Shashi Price Under the Supervision of: Dr. Stephon Jackson D.O. First contact with patient: 14:38 Chief Complaint: STROKE SYMPTOMS Stated Complaint: NUMBNESS IN LEFT EYE AND FACE Nursing Triage Summary: pt reports "about [address] was driving down the street and I felt my face start to fall, I could see weakness in my cheek and I felt droopy, I also had this strange sensation in my left neck." pt has obvious asymmetry to left face History of Present Illness The patient is a 76 year old male with a stroke history who presents to the Emergency Room with complaints of an episode of stroke symptoms that occurred about 37 minutes ago at 1400 this afternoon. He states that he was driving down the highway, and suddenly felt a pain on the left side of his neck, in addition to left-sided facial numbness, and per the nursing staff, a left facial droop. The patient states that he has a history of an aortic aneurysm and aortic valve replacement. He says that he has been seen here 5 or 6 times in the past for similar symptoms, with the left-sided neck pain and left facial numbness. He notes that he takes a baby Aspirin daily but no other blood thinners. Source of History: patient, nursing staff Onset: About 37 minutes ago Position: other (global) Quality: other (stroke symptoms) Timing: other (episode) Associated Symptoms: + neck pain (left), + numbness (left face) Note: Associated symptoms: Per nurse, pt had left-sided facial droop. Review of Systems See HPI for pertinent positives & negatives. A total of 10 systems reviewed and were otherwise negative. Past Medical & Surgical Medical Problems: (1) Abnormal involuntary movement (2) Appendectomy (3) Heart disease (4) Hernia repair (5) Intractable nausea and vomiting (6) Left arm pain (7) Left face and left arm tingling (8) Left facial numbness (9) Left-eye droop (10) Left-sided weakness (11) Lyme disease (12) Neurological symptoms (13) PURE HYPERCHOLESTEROLEM (14) Repair of rotator cuff by suture (15) Seizure (16) TIA (transient ischemic attack) (17) TRANS CEREB ISCHEMIA NOS (18) Weakness Surgical Problems: (1) H/O aortic aneurysm repair (2) H/O aortic valve replacement Family History Cancer Heart disease Social History Smoking Status: Never Smoker Alcohol Use: occasionally Drug Use: none Marital Status: Housing Status: lives with family Occupation Status: retired Current/Historical Medications Scheduled Aspirin (Aspirin Ec), 81 MG PO QAM Lamotrigine (Lamotrigine Er), 100 MG PO BID Meclizine HCl (Meclizine HCl), 25 MG PO PRN UD Sildenafil Citrate (Viagra), 50 MG PO PRN Allergies Coded Allergies: Codeine (Verified Adverse Reaction, Intermediate, GI SYMPTOMS, 06/16/17) Uncoded Allergies: NARCOTICS (Adverse Reaction, Severe, NAUSEA, 08/08/17) Physical Exam Vital Signs Date Time Temp Pulse Resp B/P (MAP) Pulse Ox O2 Delivery O2 Flow Rate FiO2 08/08/17 18:23 63 18 127/84 94 Room Air 08/08/17 17:33 64 18 129/86 95 Room Air 08/08/17 16:24 62 18 142/83 95 Room Air 08/08/17 15:24 58 08/08/17 15:24 94 Room Air 08/08/17 15:24 60 18 124/78 94 Room Air 08/08/17 14:22 36.4 64 17 137/85 98 Room Air Physical Exam VITAL SIGNS: were reviewed as above. GENERAL:Non-toxic in appearance. SKIN: Warm dry and pink. HEAD: Normocephalic and atraumatic. OROPHARYNX: Is clear and moist NECK: Supple without lymphadenopathy or meningismus. LUNGS: clear. HEART: Regular rate and rhythm. ABDOMEN: Soft and nontender. EXTREMITIES: Warm and well perfused. NEUROLOGICALLY: Awake alert and oriented without focal deficit. Cranial nerves 2 -12 are intact. There is no pronator drift. Cerebellar testing is within normal limits. There is no nystagmus. There is no facial droop. Speech is clear. Vision is grossly normal. MUSCULOSKELETAL: Good muscle tone. No evidence of trauma. Medical Decision & Procedures ER Provider Diagnostic Interpretation: Radiology results as stated below per my review and radiologist interpretation: CHEST ONE VIEW PORTABLE CLINICAL HISTORY: 76 years-old Male presenting with EVALUATE ALTERED MENTAL STATUS/WEAKNESS. TECHNIQUE: Portable upright AP view of the chest was obtained. COMPARISON: 06/16/2017. FINDINGS: Median sternotomy wires and mediastinal surgical clip. Epicardial pacing wires may also be present. Cardiac silhouette normal in size. Tortuosity of the descending thoracic aorta, unchanged. Lungs and pleural spaces clear. Osseous structures normal. Upper abdomen normal. IMPRESSION: 1. No acute cardiopulmonary disease. Electronically signed by: Yves Diana M.D. 08/08/2017 3:27 PM Dictated Date/Time: 08/08/2017 3:27 PM NECK ANGIO WITH CONTRAST CLINICAL HISTORY: 76 years-old Male presenting with left-sided neck pain, numbness, history of stroke. TECHNIQUE: Multidetector CT angiography of the neck was performed after the administration of intravenous contrast. 3-D volumetric and/or maximum intensity projection (MIP) images were subsequently reconstructed for review. IV contrast: 119 mL of Optiray 320. A dose lowering technique was used consistent with the principles of ALARA (as low as reasonably achievable). Stenosis measurements were based on NASCET-like criteria. COMPARISON: Carotid Doppler ultrasound from 09/12/2016 and CTA neck from 02/11/2016. CT DOSE (mGy.cm): The estimated cumulative dose is 1263.94 mGy.cm. 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 Nondiagnostic evaluation. Contrast was injected into the left upper extremity and opacifies the left brachiocephalic vein and refluxes into the left internal jugular vein as well as smaller cervical veins. Contrast opacifies the SVC. No contrast is evident in the aortic arch. Atherosclerosis of aortic arch. Cervical arteries not able to be evaluated. Limited intracranial dilation within normal limits. No gross abnormality of the soft tissues of the neck allowing for the phase of contrast. Bandlike opacities in the posterior right upper lobe, possibly atelectasis or scarring. IMPRESSION: Nondiagnostic evaluation secondary to the timing of the contrast bolus. If there is continuing need for evaluation of the cervical vessels, carotid Doppler ultrasound could be considered versus repeat CTA neck depending on the patient's renal function. Electronically signed by: Yves Diana M.D. 08/08/2017 4:14 PM Dictated Date/Time: 08/08/2017 4:11 PM HEAD WITHOUT CONTRAST (CT) CLINICAL HISTORY: 76 years-old Male presenting with EVALUATE ALTERED MENTAL STATUS/WEAKNESS. TECHNIQUE: Multidetector CT imaging of the head was performed without the use of intravenous contrast. IV contrast: None. A dose lowering technique was used consistent with the principles of ALARA (as low as reasonably achievable). COMPARISON: MR brain from 06/17/[address] head from 06/16/2017. CT DOSE (mGy.cm): The estimated cumulative dose is 1263.94 inclusive of the CTA neck. 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 Proportional ventricular and sulcal prominence, likely age-related parenchymal volume loss. Periventricular and subcortical white matter hypoattenuation, nonspecific but likely indicative of chronic small vessel ischemic change. No mass effect or midline shift. No hemorrhage or acute territorial infarct. No extra-axial fluid collection. Paranasal sinuses and mastoid air cells clear. Calvarium intact. IMPRESSION: 1. No acute intracranial abnormality. Electronically signed by: Yves Diana M.D. 08/08/2017 4:11 PM Dictated Date/Time: 08/08/2017 4:09 PM CAROTID DOPPLER NECK ART CLINICAL HISTORY: 76 years-old Male presenting with left neck pain. TECHNIQUE: Real-time grayscale and color and spectral Doppler ultrasound imaging of the bilateral carotid arteries was performed. NASCET criteria was used in evaluating this study. COMPARISON: 09/12/2016 and CTA neck performed earlier the same day. FINDINGS: Right: Common carotid: Patent. Peak systolic velocity 76 cm/s. Internal carotid artery: Patent. Peak systolic velocity 61 cm/s. Systolic ratio: 0.8. External carotid artery: Patent. Peak systolic velocity 74 cm/s. Left: Common carotid: Patent. Peak systolic velocity 78 cm/s. Internal carotid artery: Patent. Peak systolic velocity 72 cm/s. Systolic ratio: 0.9. External carotid artery: Patent. Peak systolic velocity 74 cm/s. Bilateral antegrade flow within the vertebral arteries. Reference ranges: Stenosis measurements are compared to reference velocity parameters. ICA peak systolic velocity (PSV) < 125 cm/s normal or indicating < 50% stenosis; ICA PSV 125-230 cm/s equivalent to 50-69% stenosis; ICA PSV > 230 cm/s equivalent to greater than or equal to 70% stenosis. ICA PSV to common carotid artery PSV ratio < 2 normal or < 50% stenosis; 2-4 equates to 50-69% stenosis, > 4 equates to greater than or equal to 70% stenosis. Normal ICA end-diastolic velocity less than 40. Blood pressure Brachial: Right: 140/86 mmHg, Left: 147/87 mmHg. IMPRESSION: No hemodynamically significant stenosis seen within the carotid arteries. Electronically signed by: Yves Diana M.D. 08/08/2017 5:57 PM Dictated Date/Time: 08/08/2017 5:56 PM Laboratory Results 08/08/17 14:55 Red Blood Count 4.89, Mean Corpuscular Volume 92.0, Mean Corpuscular Hemoglobin 31.9, Mean Corpuscular Hemoglobin Concent 34.7, Mean Platelet Volume 10.0, Neutrophils (%) (Auto) 53.7, Lymphocytes (%) (Auto) 30.5, Monocytes (%) (Auto) 11.8, Eosinophils (%) (Auto) 3.1, Basophils (%) (Auto) 0.8, Neutrophils # (Auto ) 3.83, Lymphocytes # (Auto) 2.18, Monocytes # (Auto) 0.84, Eosinophils # (Auto ) 0.22, Basophils # (Auto) 0.06 08/08/17 14:55 Test 08/08/17 14:55 White Blood Count 7.14 K/uL (4.8-10.8) Red Blood Count 4.89 M/uL (4.7-6.1) Hemoglobin 15.6 g/dL (14.0-18.0) Hematocrit 45.0 % (42-52) Mean Corpuscular Volume 92.0 fL (80-100) Mean Corpuscular Hemoglobin 31.9 pg (25-34) Mean Corpuscular Hemoglobin Concent 34.7 g/dl (32-36) Platelet Count 169 K/uL (130-400) Mean Platelet Volume 10.0 fL (7.4-10.4) Neutrophils (%) (Auto) 53.7 % Lymphocytes (%) (Auto) 30.5 % Monocytes (%) (Auto) 11.8 % Eosinophils (%) (Auto) 3.1 % Basophils (%) (Auto) 0.8 % Neutrophils # (Auto) 3.83 K/uL (1.4-6.5) Lymphocytes # (Auto) 2.18 K/uL (1.2-3.4) Monocytes # (Auto) 0.84 K/uL (0.11-0.59) Eosinophils # (Auto) 0.22 K/uL (0-0.5) Basophils # (Auto) 0.06 K/uL (0-0.2) RDW Standard Deviation 45.8 fL (36.4-46.3) RDW Coefficient of Variation 13.5 % (11.5-14.5) Immature Granulocyte % (Auto) 0.1 % Immature Granulocyte # (Auto) 0.01 K/uL (0.00-0.02) Prothrombin Time 10.0 SECONDS (9.0-12.0) Prothromb Time International Ratio 1.0 (0.9-1.1) Activated Partial Thromboplast Time 27.3 SECONDS (21.0-31.0) Partial Thromboplastin Ratio 1.1 Anion Gap 6.0 mmol/L (3-11) Est Creatinine Clear Calc Drug Dose 75.5 ml/min Estimated GFR () 97.6 Estimated GFR (Non- 84.2 BUN/Creatinine Ratio 16.2 (10-20) Calcium Level 9.0 mg/dl (8.5-10.1) Magnesium Level 2.2 mg/dl (1.8-2.4) Total Bilirubin 0.5 mg/dl (0.2-1) Direct Bilirubin 0.1 mg/dl (0-0.2) Aspartate Amino Transf (AST/SGOT) 18 U/L (15-37) Alanine Aminotransferase (ALT/SGPT) 23 U/L (12-78) Alkaline Phosphatase 77 U/L (45-117) Total Creatine Kinase 77 U/L (39-308) Creatine Kinase MB 1.0 ng/ml (0.5-3.6) Creatine Kinase MB Ratio 1.3 (0-3.0) Troponin I < 0.015 ng/ml (0-0.045) Total Protein 6.8 gm/dl (6.4-8.2) Albumin 3.6 gm/dl (3.4-5.0) Lipase 235 U/L (73-393) Thyroid Stimulating Hormone (TSH) 3.360 uIu/ml (0.300-4.500) Laboratory results as stated above per my review. ECG Per My Interpretation Indication: weakness Rate (beats per minute): 61 Rhythm: normal sinus Findings: no ectopy, other (no ST elevations) ED Course 1438: Previous medical records were reviewed. The patient was evaluated in room B4B. A complete history and physical examination was performed. 1700: The psychiatric nurse case manager will see the patient. 1711: I reevaluated the patient and he wants to go ahead with the ultrasound. 1805: On reevaluation, the patient is resting comfortably. I discussed the results and findings with the patient. He verbalized agreement of the treatment plan. He was discharged home. Medical Decision Differentials include: Acute coronary syndrome, myocardial infarction, CVA, TIA , anemia, infection, pneumonia, UTI, pyelonephritis, poor nutrition, dehydration , electrolyte disturbance, and hypoglycemia. This is a 76-year-old male who presents to the ED with a chief complaint of feeling some discomfort in his left side of his neck around 2 PM today, 35 minutes before arriving here. This occurred while he was driving. The patient reports a history of CVA in the past as well as aortic valve replacement and aortic repair. The patient reported that his left face felt a little numb. He states that he has had similar symptoms previously and has been evaluated for this without find a clear etiology. The patient's vital signs are normal. His physical exam and neurologic exam was completely normal. CBC and complete metabolic panel were normal, troponin was negative, CT scan of the vessels of the neck was inconclusive due to the timing of the contrast. Therefore an ultrasound was performed and did not show any hemodynamically significant abnormalities. A CT scan of the brain was negative for acute disease as well as a chest x-ray. The patient was told the results of the test. The patient is felt to be stable for discharge. Medication Reconcilliation Current Medication List: was personally reviewed by me Blood Pressure Screening Patient's blood pressure: Elevated blood pressure Blood pressure disposition: Elevated BP felt to be situational Impression Primary Impression: Left facial numbness Scribe Attestation The scribe's documentation has been prepared under my direction and personally reviewed by me in its entirety. I confirm that the note above accurately reflects all work, treatment, procedures, and medical decision making performed by me. Departure Information Dispostion Home / Self-Care Referrals Keith Smith M.D. (PCP) Patient Instructions [facility] Additional Instructions Follow-up with your doctor for further care and evaluation in 1-2 days. Return to the emergency department for worsening or new symptoms or any concerns. You have been examined and treated today on an emergency basis only. This is not a substitute for, or an effort to provide, complete comprehensive medical care. It is impossible to recognize and treat all injuries or illnesses in a single emergency department visit. It is therefore important that you follow up closely with your doctor. Call as soon as possible for an appointment.
[2017-08-08 18:23] VITALS: BP 127/84; PULSE 63; O2SAT 94
[2017-08-08] MEDS ORDERED: ASPI81TA28 PO (22:37)
== END 2017-08-08 18:53 | disposition home or self-care (01) ==
LOC: C.EDB 14:20
DX: R20.0 Anesthesia of skin (principal); R29.810 Facial weakness; M54.2 Cervicalgia; G40.909 Epilepsy, unspecified, not intractable, without status epilepticus; Z79.82 Long term (current) use of aspirin; Z79.899 Other long term (current) drug therapy; Z88.5 Allergy status to narcotic agent; Z86.73 Personal history of transient ischemic attack (TIA), and cerebral infarction without residual deficits; Z82.49 Family history of ischemic heart disease and other diseases of the circulatory system

== ENCOUNTER → 2017-09-26 | Outpatient (CLI) | payer BC ==
[~2017-09-26] MED LIST changes: +ANT25 PO; -DXY100 PO; -LAMO100T PO; +LAMO1TAB76 PO; -LAMO25TA PO; +VGR50 PO
[2017-09-26 14:00] LABS: HEMOGLOBIN A1C 5.2 % (4.5-5.6)
== END | disposition home or self-care (01) ==
LOC: C.LAB 11:59
PROVIDERS: ATTEND Internal Medicine Pulmonary Disease
DX: Z80.42 Family history of malignant neoplasm of prostate (principal); G62.9 Polyneuropathy, unspecified

== ENCOUNTER 2018-09-14 16:33 | Inpatient (IN) ==
--- NOTE | 2018-09-14 17:04 | CT Scan Report ---
CT head/brain wo con CLINICAL HISTORY: 77 years-old Male presenting with Stroke evaluation. TECHNIQUE: Multidetector CT imaging of the head was performed without the use of intravenous contrast . IV contrast: None. One or more dose lowering techniques were used consistent with the principles of ALARA (as low as reasonably achievable), including automatic exposure control, mA or kV adjustment t o individual patient size, and/or use of iterative reconstruction. COMPARISON: 08/08/2017. CT DOSE (mGy.cm): The estimated cumulative dose is 537.48 mGy.cm. FINDINGS: Manufacturing Lead topogram: Unremarkable. Proportional ventricular and sulcal prominence, likely age-related parenchymal volume loss. No hemorr suzette. Brain parenchyma normal in appearance with preserved roman-white differentiation. No acute lisa torial infarct. No mass effect or midline shift. No extra-axial fluid collection. Paranasal sinuses a nd mastoid air cells clear. Calvarium intact. Intracranial atherosclerosis noted. IMPRESSION: 1. No acute intracranial abnormality. These findings were discussed with charge nurse by Dr. Diana on 09/14/2018 5:02 PM. Electronically signed by: Yves Diana M.D. 09/14/2018 5:02 PM
[2018-09-14 17:09] LABS: iSTAT Creatinine 0.9 mg/dl (0.6-1.3); iSTAT Ionized Calcium 1.19 mmol/l (1.12-1.32); iSTAT Potassium 3.7 mEq/L (3.3-5.0)
[2018-09-14 17:24] LABS: Basophils # (auto) 0.05 K/uL (0-0.2); Basophils % (auto) 0.6 %; Eosinophils # (auto) 0.25 K/uL (0-0.5); Hematocrit (blood only) 41.7 % (42-52); Hemoglobin 14.9 g/dL (14.0-18.0); Immature Granulocytes # (auto) 0.02 K/uL (0.00-0.02); Immature Granulocytes % (auto) 0.2 %; Lymphocytes # (auto) 2.44 K/uL (1.2-3.4); Lymphocytes % (auto) 29.7 %; Mean Corpuscular Hgb Conc 35.7 g/dL (32-36); Mean Corpuscular Volume 90.1 fL (80-100); Mean Platelet Volume 9.8 fL (7.4-10.4); Monocytes # (auto) 0.94 K/uL (0.11-0.59); Monocytes % (auto) 11.4 %; Neutrophils # (auto) 4.52 K/uL (1.4-6.5); Neutrophils % (auto) 55.1 %; Platelet Count 169 K/uL (130-400); RDW Coefficient of Variation 13.5 % (11.5-14.5); RDW Standard Deviation 44.5 fL (36.4-46.3); Red Blood Count 4.63 M/uL (4.7-6.1); White Blood Count 8.22 K/uL (4.8-10.8)
[2018-09-14 17:38] LABS: Partial Thromboplastin Time 26.3 Seconds (21.0-31.0); Prothrombin Time 10.3 Seconds (9.0-12.0)
[2018-09-14 17:40] LABS: Alanine Aminotransferase 30 U/L (12-78); Albumin Level 3.5 gm/dl (3.4-5.0); Aspartate Aminotransferase 25 U/L (15-37); BUN Creatinine Ratio 13.3 (10-20); Blood Urea Nitrogen 13 mg/dl (7-18); Carbon Dioxide 27 mmol/L (21-32); Chloride 100 mmol/L (98-107); Creatinine Clr Calc Pharmacy 66.5 ml/min; Est GFR (Non-African American) 75.9; Glucose 123 mg/dl (70-99); Magnesium 2.2 mg/dl (1.8-2.4); Potassium 3.6 mmol/L (3.5-5.1); Sodium 134 mmol/L (136-145)
[2018-09-14 17:44] LABS: Albumin Globulin Ratio 1.1 (0.9-2); Alkaline Phosphatase 80 U/L (45-117); Bilirubin,Total 0.9 mg/dl (0.2-1); Globulin 3.1 gm/dl (2.5-4.0); Total Protein 6.6 gm/dl (6.4-8.2); Troponin I < 0.015 ng/ml (0-0.045)
--- NOTE | 2018-09-14 17:59 | XRay Report ---
SINGLE VIEW CHEST CLINICAL HISTORY: Atypical chest pain. FINDINGS: An AP, portable, upright chest radiograph is compared to study dated 04/22/2018. Correlatio n is made with chest CT dated 3814. The examination is degraded by portable technique and patient r otation. The patient is status post midline sternotomy. The heart is enlarged and there is atheroscle rotic calcification of the thoracic aorta. The pulmonary vasculature is noncongested. Epicardial paci ng leads are noted. There is bibasilar scarring/atelectasis. No airspace consolidation or large pleur al effusion is identified. No pneumothorax is seen. The bony thorax is grossly intact. IMPRESSION: Cardiomegaly with no acute cardiopulmonary abnormality. Electronically signed by: David Greer M.D. 09/14/2018 5:57 PM
--- NOTE | 2018-09-14 18:11 | Emergency Department Note ---
Entered by Terrence Willett acting as a scribe for History of Present Illness General Chief complaint: Neuro Symptoms/Deficit Stated complaint: LT SIDE NECK/ARM PAIN, LOSS OF SENSATION- CARDIAC Time Seen by Provider: 09/14/18 16:44 Source: patient Limitations: no limitations History of Present Illness Provider complaint: Left sided numbness Onset (ago): hour(s) (6 hours and 15 minutes ago) Location: face (left), upper extremity and left Pain Consistency: + other (waxing/waning) Quality: + other (numbness) Associated symptoms: no chest pain Treatments prior to arrival: none The patient is a 77 year old male who presents to the Emergency Room with complaints of waxing and waning numbness to the left side of his face/jaw and left upper extremity. The patient states that the numbness has been "coming and going" since 1000 this morning, about 6 hours and 15 minutes ago. The patient does have a history of a previous stroke 5.5 years ago. On this stroke he had left sided weakness and left sided facial droop. The patient also has a history of cardiac valve replacement surgery about 5 years ago. The patient denies any chest pain, shortness of breath, or nausea/vomiting. The patient's at [facility] adds that he was started on Cymbalta 1.5 weeks ago secondary to neuropathy. Home Medications Home Medications Medication Instructions Recorded Confirmed Type aspirin [Aspir-81] 81 mg PO DAILY 04/22/18 09/14/18 History lamotrigine 50 mg PO BID 04/22/18 09/14/18 History sildenafil [Viagra] 50 mg PO DAILY PRN 04/22/18 09/14/18 History duloxetine 30 mg PO DAILY 09/14/18 09/14/18 History Allergies Allergy/AdvReac Type Severity Reaction Status Date / Time codeine AdvReac Intermediate GI SYMPTOMS Verified 09/14/18 17:01 acetaminophen [From Percocet] AdvReac Unknown Unverified 09/14/18 17:01 oxycodone [From Percocet] AdvReac Unknown Unverified 09/14/18 17:01 NARCOTICS AdvReac Severe NAUSEA Uncoded 09/14/18 17:01 Past Med/Surg History Social History marital status: Current Living Situation: Spouse current occupational status: retired Feels Safe at Home: Yes Smoking Status: Never smoker Hx Alcohol Use: Yes Hx Substance Use: No Review of Systems See HPI for pertinent positives & negatives. and A total of 10 systems reviewed and were otherwise negative Physical Exam Vital Signs Vital Signs - 24 hr 09/14/18 16:36 09/14/18 16:48 09/14/18 17:02 Temperature 36.7 C Temperature Source Oral Sepsis Recent Fever Within 48 Hours No Sepsis New/Unexplained Change in Mental Status No Sepsis Action Taken by Nursing No Action Required Pulse Rate 75 70 70 Pulse Rate [Bilateral Apical] Pulse Rate from SpO2 Sensor Respiratory Rate 20 20 23 Blood Pressure 127/79 154/79 H 128/75 Blood Pressure [Left Arm] Blood Pressure Mean 95 104 92 Blood Pressure Mean [Left Arm] Pulse Oximetry 94 Oxygen Delivery Method Room Air 09/14/18 17:08 09/14/18 17:15 09/14/18 17:30 Temperature Temperature Source Sepsis Recent Fever Within 48 Hours Sepsis New/Unexplained Change in Mental Status Sepsis Action Taken by Nursing Pulse Rate 67 66 Pulse Rate [Bilateral Apical] Pulse Rate from SpO2 Sensor 67 65 Respiratory Rate 21 17 Blood Pressure 127/81 119/71 Blood Pressure [Left Arm] Blood Pressure Mean 96 87 Blood Pressure Mean [Left Arm] Pulse Oximetry 93 93 Oxygen Delivery Method Room Air 09/14/18 18:00 09/14/18 18:01 09/14/18 18:15 Temperature Temperature Source Sepsis Recent Fever Within 48 Hours Sepsis New/Unexplained Change in Mental Status Sepsis Action Taken by Nursing Pulse Rate 67 66 67 Pulse Rate [Bilateral Apical] Pulse Rate from SpO2 Sensor 66 67 67 Respiratory Rate 25 H 21 22 Blood Pressure 125/77 Blood Pressure [Left Arm] Blood Pressure Mean 93 Blood Pressure Mean [Left Arm] Pulse Oximetry 93 93 94 Oxygen Delivery Method 09/14/18 18:30 09/14/18 18:31 09/14/18 19:09 Temperature Temperature Source Sepsis Recent Fever Within 48 Hours Sepsis New/Unexplained Change in Mental Status Sepsis Action Taken by Nursing Pulse Rate 65 68 Pulse Rate [Bilateral Apical] 62 Pulse Rate from SpO2 Sensor 65 68 Respiratory Rate 23 22 18 Blood Pressure 132/85 Blood Pressure [Left Arm] 144/83 H Blood Pressure Mean 100 Blood Pressure Mean [Left Arm] 103 Pulse Oximetry 95 94 98 Oxygen Delivery Method Room Air 09/14/18 19:38 Temperature Temperature Source Sepsis Recent Fever Within 48 Hours Sepsis New/Unexplained Change in Mental Status Sepsis Action Taken by Nursing Pulse Rate Pulse Rate [Bilateral Apical] 64 Pulse Rate from SpO2 Sensor Respiratory Rate 18 Blood Pressure Blood Pressure [Left Arm] 118/83 Blood Pressure Mean Blood Pressure Mean [Left Arm] 94 Pulse Oximetry 95 Oxygen Delivery Method Room Air General: Non-ill appearing older male in no acute distress. Speaking and swallowing without difficulty. HEENT: Normal cephalic atraumatic. Pupils are equal round and reactive to light. Extraocular movements are intact. Oropharynx is pink with moist mucous membranes. No swelling of the mouth lips or tongue. Neck: Supple with a midline trachea. No meningeal signs or stiffness, no JVD or bruits. No Stridor. Chest: Clear to auscultation bilaterally. No wheezes or rhonchi. No increased work of breathing. Heart: regular rate and rhythm. Abdomen: Soft nontender, nondistended without rebound guarding or rigidity. Extremities: No cyanosis clubbing or edema. No calf tenderness or assymetry. Spine/Back. Non tender to palpation. No CVA tenderness Skin: Good turgor without rashes. Neurologic exam: Cranial nerves two through 12 are intact. Motor and sensation are intact and symmetrical throughout. There is subjectively decreased sensation on the left cheek and left shoulder as compared to the right. Course 164: The patient was evaluated in room A11B, and a complete history and physical examination were performed. 1701: I discussed the case with Dr. Julia Chowdhury Stroke Neurology. He states that the patient is not a TPA candidate, continue with Stroke Work-up. 1817: I updated the patient at this time. He states that he has been in the hospital for neurologic symptoms multiple times, and notes that they never find any acute issues. He adds that he was just at the [facility] in [place] and had a MRI of the head performed there. 1913: I reviewed the patient's case with Dr. Ant LARSON Hospitalist. She will evaluate the patient for further management. Medical Decision Making Differential Diagnosis Differential Diagnosis includes: Stroke, TIA, cardiac disease, medication, electrolyte or metabolic abnormality Medical Records Attestation: I reviewed the patient's medical records. Home Medications Current Medication List: was personally reviewed by me Laboratory Data Attestation: I reviewed the patient's lab results. Result diagrams: 09/14/18 16:46 09/14/18 16:46 Lab Results 09/14/18 09/14/18 09/14/18 Range/Units 16:46 16:46 16:46 WBC 8.22 (4.8-10.8) K/uL RBC 4.63 L (4.7-6.1) M/uL Hgb 14.9 (14.0-18.0) g/dL POC Hgb (14.0-18.0) g/dl Hct 41.7 L (42-52) % POC Hct (42-52) % MCV 90.1 (80-100) fL MCH 32.2 (25-34) pg MCHC 35.7 (32-36) g/dL RDW Std Deviation 44.5 (36.4-46.3) fL RDW Coeff of Stormy 13.5 (11.5-14.5) % Plt Count 169 (130-400) K/uL MPV 9.8 (7.4-10.4) fL Immature Gran % (Auto) 0.2 % Neut % (Auto) 55.1 % Lymph % (Auto) 29.7 % [place] % (Auto) 11.4 % Eos % (Auto) 3.0 % Baso % (Auto) 0.6 % Immature Gran # (Auto) 0.02 (0.00-0.02) K/uL Neut # (Auto) 4.52 (1.4-6.5) K/uL Lymph # (Auto) 2.44 (1.2-3.4) K/uL [place] # (Auto) 0.94 H (0.11-0.59) K/uL Eos # (Auto) 0.25 (0-0.5) K/uL Baso # (Auto) 0.05 (0-0.2) K/uL PT 10.3 (9.0-12.0) Seconds INR 1.0 (0.9-1.1) APTT 26.3 (21.0-31.0) Seconds PTT Ratio 1.0 POC Sodium (135-144) mEq/L Sodium 134 L (136-145) mmol/L POC Potassium (3.3-5.0) mEq/L Potassium 3.6 (3.5-5.1) mmol/L POC Chloride (101-112) mEq/L Chloride 100 (98-107) mmol/L Carbon Dioxide 27 (21-32) mmol/L POC Total CO2 (24-31) mEq/l Anion Gap 7.0 (3-11) POC Anion Gap (16-25) mmol/L POC BUN (7-18) mg/dl BUN 13 (7-18) mg/dl Creatinine 0.96 (0.6-1.4) mg/dl POC Creatinine (0.6-1.3) mg/dl Est Cr Clr Drug Dosing 66.5 ml/min Est GFR ( Amer) 88.0 Est GFR (Non-Af Amer) 75.9 BUN/Creatinine Ratio 13.3 (10-20) Glucose 123 H (70-99) mg/dl POC Glucose (other) (70-99) mg/dl Calcium 9.0 (8.5-10.1) mg/dl POC Ioniz Calcium Kwasi (1.12-1.32) mmol/l Magnesium 2.2 (1.8-2.4) mg/dl Total Bilirubin 0.9 (0.2-1) mg/dl AST 25 (15-37) U/L ALT 30 (12-78) U/L Alkaline Phosphatase 80 (45-117) U/L Troponin I < 0.015 (0-0.045) ng/ml Total Protein 6.6 (6.4-8.2) gm/dl Albumin 3.5 (3.4-5.0) gm/dl Globulin 3.1 (2.5-4.0) gm/dl Albumin/Globulin Ratio 1.1 (0.9-2) Blood Type Antibody Screen 09/14/18 09/14/18 Range/Units 16:46 16:56 WBC (4.8-10.8) K/uL RBC (4.7-6.1) M/uL Hgb (14.0-18.0) g/dL POC Hgb 15.0 (14.0-18.0) g/dl Hct (42-52) % POC Hct 44 (42-52) % MCV (80-100) fL MCH (25-34) pg MCHC (32-36) g/dL RDW Std Deviation (36.4-46.3) fL RDW Coeff of Stormy (11.5-14.5) % Plt Count (130-400) K/uL MPV (7.4-10.4) fL Immature Gran % (Auto) % Neut % (Auto) % Lymph % (Auto) % [place] % (Auto) % Eos % (Auto) % Baso % (Auto) % Immature Gran # (Auto) (0.00-0.02) K/uL Neut # (Auto) (1.4-6.5) K/uL Lymph # (Auto) (1.2-3.4) K/uL [place] # (Auto) (0.11-0.59) K/uL Eos # (Auto) (0-0.5) K/uL Baso # (Auto) (0-0.2) K/uL PT (9.0-12.0) Seconds INR (0.9-1.1) APTT (21.0-31.0) Seconds PTT Ratio POC Sodium 135 (135-144) mEq/L Sodium (136-145) mmol/L POC Potassium 3.7 (3.3-5.0) mEq/L Potassium (3.5-5.1) mmol/L POC Chloride 95 L (101-112) mEq/L Chloride (98-107) mmol/L Carbon Dioxide (21-32) mmol/L POC Total CO2 24 (24-31) mEq/l Anion Gap (3-11) POC Anion Gap 21.0 (16-25) mmol/L POC BUN 13 (7-18) mg/dl BUN (7-18) mg/dl Creatinine (0.6-1.4) mg/dl POC Creatinine 0.9 (0.6-1.3) mg/dl Est Cr Clr Drug Dosing ml/min Est GFR ( Amer) Est GFR (Non-Af Amer) BUN/Creatinine Ratio (10-20) Glucose (70-99) mg/dl POC Glucose (other) 122 H (70-99) mg/dl Calcium (8.5-10.1) mg/dl POC Ioniz Calcium Kwasi 1.19 (1.12-1.32) mmol/l Magnesium (1.8-2.4) mg/dl Total Bilirubin (0.2-1) mg/dl AST (15-37) U/L ALT (12-78) U/L Alkaline Phosphatase (45-117) U/L Troponin I (0-0.045) ng/ml Total Protein (6.4-8.2) gm/dl Albumin (3.4-5.0) gm/dl Globulin (2.5-4.0) gm/dl Albumin/Globulin Ratio (0.9-2) Blood Type O Positive Antibody Screen NEGATIVE Imaging Data Attestation: I personally reviewed and interpreted this imaging study as follows: Radiologist's Impression: SINGLE VIEW CHEST CLINICAL HISTORY: Atypical chest pain. FINDINGS: An AP, portable, upright chest radiograph is compared to study dated 04/22/2018. Correlation is made with chest CT dated 3814. The examination is degraded by portable technique and patient rotation. The patient is status post midline sternotomy. The heart is enlarged and there is atherosclerotic calcification of the thoracic aorta. The pulmonary vasculature is noncongested. Epicardial pacing leads are noted. There is bibasilar scarring/atelectasis. No airspace consolidation or large pleural effusion is identified. No pneumothorax is seen. The bony thorax is grossly intact. IMPRESSION: Cardiomegaly with no acute cardiopulmonary abnormality. Electronically signed by: David Greer M.D. 09/14/2018 5:[address] head/brain wo con CLINICAL HISTORY: 77 years-old Male presenting with Stroke evaluation. TECHNIQUE: Multidetector CT imaging of the head was performed without the use of intravenous contrast. IV contrast: None. One or more dose lowering techniques were used consistent with the principles of ALARA (as low as reasonably achievable), including automatic exposure control, mA or kV adjustment to individual patient size, and/or use of iterative reconstruction. COMPARISON: 08/08/2017. CT DOSE (mGy.cm): The estimated cumulative dose is 537.48 mGy.cm. FINDINGS: Home Specialist topogram: Unremarkable. Proportional ventricular and sulcal prominence, likely age-related parenchymal volume loss. No hemorrhage. Brain parenchyma normal in appearance with preserved roman-white differentiation. No acute territorial infarct. No mass effect or midline shift. No extra-axial fluid collection. Paranasal sinuses and mastoid air cells clear. Calvarium intact. Intracranial atherosclerosis noted. IMPRESSION: 1. No acute intracranial abnormality. These findings were discussed with charge nurse by Dr. Diana on 09/14/2018 5:02 PM. Electronically signed by: Yves Diana M.D. 09/14/2018 5:02 PM ECG Data Attestation: I personally reviewed and interpreted this ECG as follows: Indication: weakness (Left numbness) Rate (beats per minute): 71 Rhythm: normal sinus Findings: + other (poor r-wave progression); no acute ischemic change Comparison ECG Date: from (04/22/2008) Change: the following changes noted (PVCs are improved) Blood Pressure Blood Pressure Findings: Elevated blood pressure Blood Pressure Disposition: further management by hospitalist MDM Narrative This patient comes in as described above. He complains of numbness in his left face neck and into the chest and shoulder that occurred at 10:00 this morning. This was well outside the TPA window he has no other deficits. He has been having some issues with neuropathy in his legs recently was started on Cymbalta. He did have bicuspid aortic valve and had bioprosthetic valve surgery in the past. Since then he has had some discomfort in the left side of his chest at times. I did call a stroke alert given his symptoms and I discussed the case w ith Dr. Dumont who agreed that he was not a TPA candidate. Stroke workup was done as well as a cardiac workup. EKG did not suggest acute coronary syndrome or arrhythmia. Chest x-ray was unremarkable. Multiple blood testing was unremarkable. There is no white count or fever to suggest infection no acute electrolyte or metabolic ab normality. Troponin is not elevated. I did attempt to get medical records from [place] when he was admitted 2 weeks ago. Talking in the family and reviewing the chart here he has had symptoms off and on like this for quite some time but today they do are different he thinks. I do think he would potentially benefit from admission for further treatment and evaluation and monitoring. I have consulted the hospitalist team to see this patient. Impression & Plan TIA (transient ischemic attack), Numbness and tingling of left side of face Discharge Plan Visit Data Chief Complaint: Neuro Symptoms/Deficit Stated Complaint: LT SIDE NECK/ARM PAIN, LOSS OF SENSATION- CARDIAC ED Provider: Jordan Fuentes Discharge Problem: TIA (transient ischemic attack), Numbness and tingling of left side of face Patient Disposition: Being Evaluated by Hospitalist Discharge Instructions Interventions: ED Discharge Assessment Last Done: 09/14/18 19:56 Forms Stand Alone Forms: My [facility] Prescriptions Prescriptions: No Action sildenafil [Viagra] 50 mg Tablet 50 mg PO DAILY PRN (Reason: Erectile Dysfunction) RF: 0 aspirin [Aspir-81] 81 mg Tablet,Delayed Release (Dr/Ec) 81 mg PO DAILY RF: 0 lamotrigine 50 mg Tablet Extended Release 24hr 50 mg PO BID RF: 0 duloxetine 30 mg capsule,delayed release(DR/EC) 30 mg PO DAILY RF: 0 Referrals Referrals: Keith Smith MD [Primary Care Provider] - The scribe's documentation has been prepared under my direction and personally reviewed by me in its entirety. I confirm that the note above accurately reflects all work, treatment, procedures, and medical decision making performed by me.
[2018-09-14] MEDS ORDERED: PHARMACIST DISCHARGE MED REC CONSULT PRN (19:47)
--- NOTE | 2018-09-14 20:53 | History & Physical Report ---
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 Left facial numbness, TIA versus stroke Stroke alert in the ED, neurologist recommends MRI We will try to obtain records from hospitalization in [place] The symptoms appear to be improving will be observing the patient overnight, stroke protocol ordered, continue aspirin [address] 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 Parada History of aortic aneurysm and bicuspid aortic valve Likely cause of embolic event, replaced in 2013 Biologic replacementdoes not require anticoagulation, only antiplatelet therapy, continue aspirin Progressive memory loss Per DVT prophylax Lovenox FEN Heart healthy diet Speech eval tomorrow CODE STATUS Full (2) TIA (transient ischemic attack): (3) Numbness and tingling of left side of face: (4) History of aortic valve replacement: (5) Peripheral neuropathy: (6) Depression: History of Present Illness Primary Care Provider: Keith Smith MD 77-year-old male with a past medical history of CVA in the setting of aortic aneurysm (2013) presents with left facial numbness that began this morning. The patient has had the following deficits since CVA minor left lip lag, progressive memory loss and seizures for which she takes Lamictal. The patient was hospitalized 2 weeks ago in [place] for a stroke workup after experiencing worsening ataxia. The patient states that all imaging was normal at this hospitalization. The patient sees Dr. Steiner feels that the ataxia is sensory in nature secondary to polyneuropathy. He says that when he woke up this morning he was feeling a bit off, but did not have any neurologic symptoms. He states that around 10 AM he began to have tingling of his left cheek and numbness. He denies any speech issues, visual changes, motor deficits or any other sensory issues of his upper or lower extremities. Constitutional; no fevers, chills, night sweats Chest; reports a right shoulder pain, chronic, worse with lying on it at night, denies palpitations, chest pain or shortness of breath Abdomen; denies abdominal pain/nausea/vomiting/diarrhea ; reports retention and dribbling at baseline, no dysuria MSK; reports baseline burning sensation in his feet, no calf tenderness Allergies Allergy/AdvReac Type Severity Reaction Status Date / Time codeine AdvReac Intermediate GI SYMPTOMS Verified 09/14/18 17:01 acetaminophen [From Percocet] AdvReac Unknown Unverified 09/14/18 17:01 oxycodone [From Percocet] AdvReac Unknown Unverified 09/14/18 17:01 NARCOTICS AdvReac Severe NAUSEA Uncoded 09/14/18 17:01 Home Medications Home Medications Medication Instructions Recorded Confirmed Type aspirin [Aspir-81] 81 mg PO DAILY 04/22/18 09/14/18 History lamotrigine 50 mg PO BID 04/22/18 09/14/18 History sildenafil [Viagra] 50 mg PO DAILY PRN 04/22/18 09/14/18 History duloxetine 30 mg PO DAILY 09/14/18 09/14/18 History Past Med/Surg History Social History Preferred Language: Iranian Communication Ability: [facility] Assistant Required: No Beliefs That Will Affect Care: None marital status: Current Living Situation: Family current occupational status: retired Other Information That Helps Us Care for You: No Feels Safe at Home: Yes Smoking Status: Never smoker Hx Alcohol Use: No Hx Substance Use: No Review of Systems All systems reviewed & are unremarkable except as noted in HPI & below Physical Exam Vital Signs (Past 24 Hours): Last Vital Signs Temp 36.7 C 09/14/18 16:36 Pulse 64 09/14/18 19:38 Resp 18 09/14/18 19:38 BP 118/83 09/14/18 19:38 Pulse Ox 95 09/14/18 19:38 Constitutional: WD/WN, vitals as above Eyes: PERRL, conjunctivae normal, anicteric sclerae ENMT: external ear and nose normal, oropharynx normal Neck: trachea midline, no thyromegaly Respiratory: normal respiratory effort, lungs clear to auscultation Cardiovascular: RRR, no murmur, no edema Gastrointestinal (Abdomen): normal bowel sounds, soft, nontender, no he patosplenomegaly Skin: no rashes, warm and dry Neurologic: CN's II-XI intact bilaterally, moves all extremities and awake; no focal motor deficits Speech / Cognition: normal speech, no expressive aphasia and no receptive aphasia Motor/Sensory: + sensory deficit (Left facial numbness) Cranial Nerves: sense of smell intact, PERRL, normal accommodation, EOM intact bilaterally, normal facial strength, tongue midline, able to elevate shoulders bilaterally and no nystagmus Psychiatric: A+Ox3, euthymic affect Results & Data Laboratory Results Laboratory Last Values WBC 8.22 K/uL (4.8-10.8) 09/14/18 16:46 RBC 4.63 M/uL (4.7-6.1) L 09/14/18 16:46 Hgb 14.9 g/dL (14.0-18.0) 09/14/18 16:46 POC Hgb 15.0 g/dl (14.0-18.0) 09/14/18 16:56 Hct 41.7 % (42-52) L 09/14/18 16:46 POC Hct 44 % (42-52) 09/14/18 16:56 MCV 90.1 fL (80-100) 09/14/18 16:46 MCH 32.2 pg (25-34) 09/14/18 16:46 MCHC 35.7 g/dL (32-36) 09/14/18 16:46 RDW Std Deviation 44.5 fL (36.4-46.3) 09/14/18 16:46 RDW Coeff of Stormy 13.5 % (11.5-14.5) 09/14/18 16:46 Plt Count 169 K/uL (130-400) 09/14/18 16:46 MPV 9.8 fL (7.4-10.4) 09/14/18 16:46 Immature Gran % (Auto) 0.2 % 09/14/18 16:46 Neut % (Auto) 55.1 % 09/14/18 16:46 Lymph % (Auto) 29.7 % 09/14/18 16:46 [place] % (Auto) 11.4 % 09/14/18 16:46 Eos % (Auto) 3.0 % 09/14/18 16:46 Baso % (Auto) 0.6 % 09/14/18 16:46 Immature Gran # (Auto) 0.02 K/uL (0.00-0.02) 09/14/18 16:46 Neut # (Auto) 4.52 K/uL (1.4-6.5) 09/14/18 16:46 Lymph # (Auto) 2.44 K/uL (1.2-3.4) 09/14/18 16:46 [place] # (Auto) 0.94 K/uL (0.11-0.59) H 09/14/18 16:46 Eos # (Auto) 0.25 K/uL (0-0.5) 09/14/18 16:46 Baso # (Auto) 0.05 K/uL (0-0.2) 09/14/18 16:46 PT 10.3 Seconds (9.0-12.0) 09/14/18 16:46 INR 1.0 (0.9-1.1) 09/14/18 16:46 APTT 26.3 Seconds (21.0-31.0) 09/14/18 16:46 PTT Ratio 1.0 09/14/18 16:46 POC Sodium 135 mEq/L (135-144) 09/14/18 16:56 Sodium 134 mmol/L (136-145) L 09/14/18 16:46 POC Potassium 3.7 mEq/L (3.3-5.0) 09/14/18 16:56 Potassium 3.6 mmol/L (3.5-5.1) 09/14/18 16:46 POC Chloride 95 mEq/L (101-112) L 09/14/18 16:56 Chloride 100 mmol/L (98-107) 09/14/18 16:46 Carbon Dioxide 27 mmol/L (21-32) 09/14/18 16:46 POC Total CO2 24 mEq/l (24-31) 09/14/18 16:56 Anion Gap 7.0 (3-11) 09/14/18 16:46 POC Anion Gap 21.0 mmol/L (16-25) 09/14/18 16:56 POC BUN 13 mg/dl (7-18) 09/14/18 16:56 BUN 13 mg/dl (7-18) 09/14/18 16:46 Creatinine 0.96 mg/dl (0.6-1.4) 09/14/18 16:46 POC Creatinine 0.9 mg/dl (0.6-1.3) 09/14/18 16:56 Est Cr Clr Drug Dosing 66.5 ml/min 09/14/18 16:46 Est GFR ( Amer) 88.0 09/14/18 16:46 Est GFR (Non-Af Amer) 75.9 09/14/18 16:46 BUN/Creatinine Ratio 13.3 (10-20) 09/14/18 16:46 Glucose 123 mg/dl (70-99) H 09/14/18 16:46 POC Glucose (other) 122 mg/dl (70-99) H 09/14/18 16:56 Calcium 9.0 mg/dl (8.5-10.1) 09/14/18 16:46 POC Ioniz Calcium Kwasi 1.19 mmol/l (1.12-1.32) 09/14/18 16:56 Magnesium 2.2 mg/dl (1.8-2.4) 09/14/18 16:46 Total Bilirubin 0.9 mg/dl (0.2-1) 09/14/18 16:46 AST 25 U/L (15-37) 09/14/18 16:46 ALT 30 U/L (12-78) 09/14/18 16:46 Alkaline Phosphatase 80 U/L (45-117) 09/14/18 16:46 Troponin I < 0.015 ng/ml (0-0.045) 09/14/18 16:46 Total Protein 6.6 gm/dl (6.4-8.2) 09/14/18 16:46 Albumin 3.5 gm/dl (3.4-5.0) 09/14/18 16:46 Globulin 3.1 gm/dl (2.5-4.0) 09/14/18 16:46 Albumin/Globulin Ratio 1.1 (0.9-2) 09/14/18 16:46 Blood Type O Positive 09/14/18 16:46 Antibody Screen NEGATIVE 09/14/18 16:46 Code Status & VTE Plan Code Status Full code VTE Prophylaxis Plan VTE Prophylaxis will be ordered: Yes Supervising Physician Co-Signing Physician Notes Patient seen and examined, chart reviewed, case discussed with Dr. Day and I agree the the assessment and plan as outlined above. Resident Activity Tracking Resident Involvement: Resident Care Provided Care Provided: Adult Hospital Medicine
[2018-09-14] MEDS ORDERED: GADOBUTROL 65ML VIAL IV PRN (20:59)
--- NOTE | 2018-09-14 21:16 | Magnetic Resonance Report ---
MRI OF THE BRAIN COMBO CLINICAL HISTORY: Left-sided weakness. COMPARISON STUDY: CT of the brain dated 09/14/2018. MRI of the brain dated 06/17/2017. TECHNIQUE: MRI of the brain was performed utilizing various T1 and T2-weighted sequences in the axial , sagittal, and coronal planes. Contrast-enhanced sequences were acquired following the administratio n of 8 cc of Gadavist. The examination is performed using the seizure protocol. FINDINGS: Brain parenchyma: There is age-related involutional change noting mild microangiopathic disease. Ther e is no hemorrhage or mass effect. There is no restricted diffusion to suggest acute ischemia. No enh ancing mass lesion is identified on the postcontrast images. Fu-white matter differentiation is pre served. No extra-axial fluid collection is seen. The cerebellar tonsils are normal in configuration. Ventricles, sulci, and cisterns: Prominent secondary to involutional change. Pituitary and sella: Unremarkable. Intracranial vasculature: Normal flow voids are maintained at the skull base. Orbits: The bony orbits are grossly intact. Orbital contents are normal in appearance. Sinuses and mastoids: Trace mucosal thickening is noted in the left frontal sinus. The remaining para nasal sinuses are clear. There is trace right mastoid effusion. Calvarium: Unremarkable. Cervical cord: Partially visualized cervical spinal cord is normal in morphology and signal intensity . IMPRESSION: No acute intracranial abnormality. Electronically signed by: David Greer M.D. 09/14/2018 9:14 PM
[2018-09-14] MEDS: lamoTRIgine 25 MG TAB PO SCH (23:19)
[2018-09-14] MEDS: ENOXAPARIN INJ 40 MG/0.4 ML SYR SQ SCH (23:19)
[2018-09-14] MEDS: DULOXETINE HCL 30 MG CAP PO SCH (23:19)
[2018-09-15 06:37] LABS: Basophils # (auto) 0.05 K/uL (0-0.2); Basophils % (auto) 0.8 %; Eosinophils # (auto) 0.33 K/uL (0-0.5); Eosinophils % (auto) 5.2 %; Hematocrit (blood only) 41.2 % (42-52); Hemoglobin 14.4 g/dL (14.0-18.0); Immature Granulocytes # (auto) 0.02 K/uL (0.00-0.02); Immature Granulocytes % (auto) 0.3 %; Lymphocytes # (auto) 2.27 K/uL (1.2-3.4); Lymphocytes % (auto) 35.9 %; Mean Corpuscular Volume 90.4 fL (80-100); Mean Platelet Volume 9.7 fL (7.4-10.4); Monocytes # (auto) 0.91 K/uL (0.11-0.59); Monocytes % (auto) 14.4 %; Neutrophils # (auto) 2.75 K/uL (1.4-6.5); Neutrophils % (auto) 43.4 %; Platelet Count 159 K/uL (130-400); RDW Coefficient of Variation 13.5 % (11.5-14.5); RDW Standard Deviation 44.8 fL (36.4-46.3); Red Blood Count 4.56 M/uL (4.7-6.1); White Blood Count 6.33 K/uL (4.8-10.8)
[2018-09-15 06:49] LABS: Estimated Average Glucose 108 mg/dl; Hemoglobin A1C 5.4 % (4.5-5.6)
[2018-09-15 06:59] LABS: BUN Creatinine Ratio 14.2 (10-20); Calcium 8.5 mg/dl (8.5-10.1); Creatinine Clr Calc Pharmacy 77.9 ml/min; Est GFR (African American) 98.9; Est GFR (Non-African American) 85.3; Potassium 3.7 mmol/L (3.5-5.1)
[2018-09-15 08:20] LABS: Lyme Ab IgM w/WB Rflx Equivocal (Negative)
[2018-09-15 08:21] LABS: Lyme Ab IgG w/WB Rflx Positive (Negative)
[2018-09-15] MEDS ORDERED: ASPIRIN 81 MG ECTAB PO SCH (09:00)
[2018-09-15] MEDS ORDERED: DULOXETINE HCL 30 MG CAP PO SCH (09:00)
[2018-09-15] MEDS ORDERED: CLOPIDOGREL BISULFATE 75 MG TAB PO SCH (09:00)
[2018-09-15] MEDS: lamoTRIgine 25 MG TAB PO SCH ×2 (09:32→20:14)
--- NOTE | 2018-09-15 12:00 | Neurology Consultation ---
Date of Consultation September 15, 2018 Assessment & Plan (1) TIA (transient ischemic attack): The patient had the onset of left facial numbness September 14 which is resolved by this morning. This is consistent with a transient ischemic attack in the right hemisphere. Clinically he has no focal neurologic findings on exam with no weakness, numbness, balance problems, or coordination issues. However, he does have a droop at the corner of the mouth on the left which is probably new and not rela natalie to his previous stroke. He has no meningeal signs or encephalopathy but he does have mild cognitive impairment and memory issues. Patient had an episode a couple of weeks ago in [place] which I am not convinced was a TIA (although it is possible). We are waiting records. Risk factors for stroke include some cardiac issues in the past, hypertension, and dyslipidemia. He has been on 81 milligram aspirin tablet daily. 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 (3) Seizure: Patient has a history of focal seizures secondary to his the stroke in February of 2013. He was doing very well and we were tapering off Lamictal. I do not believe any of his symptomatology is related to seizures but I cannot entirely exclude this. (4) Depression: He has a history of depression which is been worse recently. Cymbalta was initiated partially to help mood is tolerating it fairly well so far. Patient has mild cognitive impairment with atrophy noted on MRI of the brain. This has been fairly stable over time but his cognitive function may be slightly worse since yesterday. (5) Peripheral neuropathy: Patient has a history of polyneuropathy with pain and dysesthesias distally in the feet. Cymbalta was initiated partially for this problem and he is actually had some improvement so far after a few days. Recommendations: 1. Initiate clopidogrel 75 milligrams daily and discontinue 81 milligram aspirin. There is no need to be on both. 2. Increase Lamictal to 100 milligrams twice daily and keep at this dose. 3. Continue Cymbalta 30 milligrams daily for mood and neuropathy pain. 4. Obtain records from [place] from 2 weeks ago. 5. There is no need to initiate medication at this time for his mild cognitive impairment. This could be reconsidered as an outpatient. 6. Consider CT angiography of the head and neck. Will make sure there is no other vascular reason for his symptoms. If this is unremarkable I have no further neurologic recommendations and I could follow him as an outpatient. Overall, I spent a total of 70 minutes with this case including review of records, review of MRI films, direct evaluation the patient at bedside, and discussion of the case with the patient and his at bedside, clinical staff, and Dr. Rea, including differential diagnosis and treatment options. History of Present Illness Reason for Consultation: Is a 77-year-old who I was asked to see the request of Dr. Maier, for neurologic consultation regarding TIA. Requesting Physician: Dr. Rea Attending Physician: Lalit Rea History of Present Illness I 1st saw this patient in February 2013 when he had the acute onset of dysarthria and right leg weakness. He was diagnosed with a left thalamic lacunar infarct likely embolic from the heart any a seizure secondary to this. He was followed over time and was on anticoagulant but then this was discontinued for 81 milligram aspirin following his aortic valve replacement surgery and repair of ascending thoracic aortic aneurysm. I have seen him regular any any is not had any seizures on Lamictal. He has had side effects to Keppra and Depakote prior to the initiation of the arm Lamictal which she has been on for years. He has had no further strokes as far as we are aware and carries a diagnosis of dyslipidemia as well as mild cognitive impairment. MRIs have shown atrophy. He was hospitalized in 2014 for double vision and for vertigo in 2016. MRIs were stable each time. This year in late August, while visiting in [place], he got up in the middle night to urinate about 6 times (which is unusual for him) any notices balance was weak. He was weak all over. MRI of the brain was unremarkable. Blood pressure was normal and echocardiogram and carotid ultrasound were normal. We are awaiting these records. He was kept on 81 milligram aspirin. I saw him in clinic on September 07. He was complaining of increased burning feet from his polyneuropathy and worsening depression and anxiety. After discussion we initiated Cymbalta 30 milligrams each evening which she feels has already started helping his feet. Cognitively he was doing well September 07. Her on September 14 he got up feeling fairly well any breakfast as usual. Around 10 in the morning he noted some numbness and dysesthesias along the left cheek and jaw. It went into his left shoulder some. There was no pain or weakness in the limbs. He had no speech problems. Apparently he nap from 10-12 but it was still present when he got up in the afternoon. Apparently, he had talked to a worker who was in the house and told him something wrong (this was according to the who found this out later). His came back around 230-3 (she had been out that day) and felt that his thinking was not as sharp as usual. She notice some left facial droop at the corner of the mouth. He had a little bit of left neck pain but he says this is intermittent and chronic. He arrived to the emergency room September 14 at 1636 with a temperature 36.7, pulse 75 regular, respiratory 20 and regular, blood pressure 127/79, and O2 saturation 94 percent. Exam showed some decreased sensation in the left cheek and left shoulder. He was not a tPA candidate CBC was unremarkable Chem profile was unremarkable and glucose was 113 Chest x-ray showed cardiomegaly CT scan of the head was unremarkable. MRI of the brain showed a generalized atrophy and some mild old ischemic changes as well as the old left thalamic lacune but no acute changes or new stroke. I reviewed this film. This morning, the patient woke up with no numbness or dysesthesias in his face or jaw. He does not have any in his neck or shoulder either. His arms and legs are without weakness or numbness and his balance is reasonable. He feels his speech and mentation are doing well although his feels that his mentation is still not quite up to baseline. Allergies Allergy/AdvReac Type Severity Reaction Status Date / Time codeine AdvReac Intermediate GI SYMPTOMS Verified 09/14/18 17:01 acetaminophen [From Percocet] AdvReac Unknown Unverified 09/14/18 17:01 oxycodone [From Percocet] AdvReac Unknown Unverified 09/14/18 17:01 NARCOTICS AdvReac Severe NAUSEA Uncoded 09/14/18 17:01 Home Medications Home Medications Medication Instructions Recorded Confirmed Type aspirin [Aspir-81] 81 mg PO DAILY 04/22/18 09/14/18 History lamotrigine 50 mg PO BID 04/22/18 09/14/18 History sildenafil [Viagra] 50 mg PO DAILY PRN 04/22/18 09/14/18 History duloxetine 30 mg PO DAILY 09/14/18 09/14/18 History Patient History Family History Mother , age 70 of lung cancer Lung cancer COPD (chronic obstructive pulmonary disease) Father , age 91 of prostate cancer Prostate cancer Coronary heart disease Other Cancer Heart disease Social History Preferred Language: [place] Citizen Communication Ability: Effective Surface Supply Breathing Apparatus Required: No Beliefs That Will Affect Care: None marital status: Current Living Situation: Family current occupational status: retired Other Information That Helps Us Care for You: No Feels Safe at Home: Yes Smoking Status: Never smoker Hx Alcohol Use: Yes Hx Substance Use: No Review of Systems Constitutional: + fatigue; no fever Eyes: no diplopia, no eye pain and no worsening vision Ear, Nose, Mouth, Throat: no ear pain, no tinnitus, no hearing loss and no dysphagia Respiratory: no cough and no dyspnea Cardiovascular: no chest pain, no dyspnea and no palpitations Gastrointestinal: no abdominal pain, no nausea and no vomiting Genitourinary (Male): no dysuria, no urinary frequency and no urinary incontinence Musculoskeletal: + neck pain; no back pain, no radicular pain, no myalgia, no muscle weakness and no muscle atrophy Integumentary: no rash and no lesions Neurologic: + memory loss; no gait abnormality, no falls, no localized weakness, no generalized weakness, no tingling, no numbness, no tremor(s), no abnormal movements, no dizziness, no headache(s), no abnormal speech, no behavioral changes and no confusion Psychiatric: + depression; no abnormal sleep pattern, no anxiety, no difficulty concentrating, no confusion and no hallucinations Endocrine: no fatigue and no flushing Hematologic / Lymphatic: no easy bleeding and no easy bruising Allergy / Immunological: no urticaria Physical Exam Vital Signs (Past 24 Hours): Last Vital Signs Temp 36.7 C 09/15/18 07:32 Pulse 66 09/15/18 07:45 Resp 17 09/15/18 07:32 BP 140/81 09/15/18 07:32 Pulse Ox 93 09/15/18 07:32 Physical Exam: The patient is right-handed. The patient is awake, alert, and attentive. Speech is normal without any aphasia or dysarthria. Mentation and thought processes are a little slow and his memory is mildly off short and long-term, but otherwise is fully oriented. He could do simple and more complex calculations fairly well. Attention and concentration are normal. Mood and affect are normal and appropriate. General appearance and grooming are normal. The discs are sharp with positive venous pulsations bilaterally. There are no exudates, hemorrhages, or blood vessel changes seen. Pupils are 4 mm bilaterally and reactive to light. Extraocular eye muscles are intact without nystagmus. Visual acuity and visual cohen seem normal grossly to confrontation. There are no deficits to sensation in the face in all 3 distributions of the fifth cranial nerve bilaterally. Corneal reflexes are positive bilaterally. There is some asymmetry with a droop at the corner of the mouth on the left which moves well with voluntary smile. Hearing seems intact grossly to voice and finger rub bilaterally. Palate moves well without asymmetry. There is normal sternocleidomastoid and trapezius (shoulder shrug) strength bilaterally. Tongue is midline with good strength bilaterally. Neck has a full range of motion without discomfort. There are no cervical bruits bilaterally. There are no cranial or ocular bruits. Heart is without murmur. There is a regular rhythm and rate. Cervical, thoracic, and lumbar spine are nontender to palpation. Gait is narrow based, with good arm swing, turns, and stance. With outstretched arms there is no drift. There are no resting, postural, or action tremors. There is no ataxia with finger to nose testing. There is good facility in the hands. No other abnormal involuntary movements are noted. Motor strength is 5/5 diffusely in the arms bilaterally including deltoids, biceps, triceps, brachioradialis, wrist flexors and extensors, optical effects layout person, and intrinsic hand muscles. Motor strength is 5/5 diffusely in the legs bilaterally including hip flexors, quadriceps, hamstrings, gastrocnemius, tibialis anterior, tibialis posterior, and Peroneii muscles bilaterally. Toe extensors are normal and there is good bulk in the extensor digitorum brevis muscles bilaterally. The limbs have good tone without rigidity or spasticity. There is no atrophy noted in the muscles. Muscle bulk is normal, there is no tenderness to palpation, no myotonia to percussion, and no fasciculations seen. Sensory examination is intact to touch and pin throughout all 4 limbs diffusely. Reflexes are 0/4 in the biceps, triceps, brachioradialis, quadriceps, and Achilles tendons bilaterally. Toes are downgoing with plantar stimulation bilaterally. Peripheral pulses are present and of normal quality distally in all 4 limbs. There is no peripheral edema noted in the limbs. Results & Data Diagnostic Findings MRI OF THE BRAIN COMBO CLINICAL HISTORY: Left-sided weakness. COMPARISON STUDY: CT of the brain dated 09/14/2018. MRI of the brain dated 06/17/2017. TECHNIQUE: MRI of the brain was performed utilizing various T1 and T2-weighted sequences in the axial, sagittal, and coronal planes. Contrast-enhanced sequences were acquired following the administration of 8 cc of Gadavist. The examination is performed using the seizure protocol. FINDINGS: Brain parenchyma: There is age-related involutional change noting mild microangiopathic disease. There is no hemorrhage or mass effect. There is no restricted diffusion to suggest acute ischemia. No enhancing mass lesion is identified on the postcontrast images. Fu-white matter differentiation is preserved. No extra-axial fluid collection is seen. The cerebellar tonsils are normal in configuration. Ventricles, sulci, and cisterns: Prominent secondary to involutional change. Pituitary and sella: Unremarkable. Intracranial vasculature: Normal flow voids are maintained at the skull base. Orbits: The bony orbits are grossly intact. Orbital contents are normal in appearance. Sinuses and mastoids: Trace mucosal thickening is noted in the left frontal sinus. The remaining paranasal sinuses are clear. There is trace right mastoid effusion. Calvarium: Unremarkable. Cervical cord: Partially visualized cervical spinal cord is normal in morphology and signal intensity. IMPRESSION: No acute intracranial abnormality. Electronically signed by: David Greer M.D. 09/14/2018 9:14 PM
[2018-09-15] MEDS ORDERED: CLOPIDOGREL BISULFATE 75 MG TAB PO ONE (12:45)
[2018-09-15] MEDS ORDERED: OPTIRAY 320 125ml IV PRN (14:37)
--- NOTE | 2018-09-15 14:50 | CT Scan Report ---
CT angio head w con HISTORY: Mental status change TIA (L sided facial numbness) TECHNIQUE: Multiaxial CT angiography of the head was performed IV contrast: 100 cc Maximum i ntensity projection images were also obtained. A dose lowering technique was utilized adhering to th e principles of ALARA. COMPARISON: 02/11/2016 FINDINGS: There is no mass, hematoma, midline shift, or acute infarct. Visualized intracranial pharmacy intern al carotid arteries, distal vertebral arteries, and basilar artery are widely patent. There is no sig nificant stenosis, occlusion, or aneurysm seen within the bilateral ACAs, MCAs, or government contracts manager. IMPRESSION: No significant stenosis, occlusion, or aneurysm within the nulato of [place]. No change from the prior exam The above report was generated using voice recognition software. It may contain grammatical, syntax or spelling errors. Electronically signed by: Jose Smith M.D. 09/15/2018 2:48 PM
--- NOTE | 2018-09-15 14:57 | CT Scan Report ---
CT angio neck with con HISTORY: No larger compromise TIA (L sided facial numbness) TECHNIQUE: Multiaxial CT angiography of the neck was performed IV contrast: 100 cc All measure ments were calculated based on NASCET criteria. Maximum intensity projection images were also obtain ed. A dose lowering technique was utilized adhering to the principles of ALARA. COMPARISON STUDY: None. FINDINGS: The aortic arch and proximal great vessels are widely patent. There is no significant sten osis, occlusion, or dissection identified within the bilateral common carotid, internal carotid, or v ertebral arteries. 40% narrowing of the carotid bifurcations bilaterally. This is secondary to calcif ic plaque formation. IMPRESSION: 1. Moderate plaque formation of the carotid bifurcations bilaterally. 2. 40% narrowing bilaterally with no significant or high-grade stenosis. 3. Normal vertebral basilar system The above report was generated using voice recognition software. It may contain grammatical, syntax or spelling errors. Electronically signed by: Jose Smith M.D. 09/15/2018 2:56 PM
[2018-09-15] MEDS: cefTRIAXone SODIUM 2,000 MG in DEXTROSE 5% 50 ML IV SCH (17:55)
[2018-09-15] MEDS: DULOXETINE HCL 30 MG CAP PO SCH (20:14)
[2018-09-15] MEDS: ENOXAPARIN INJ 40 MG/0.4 ML SYR SQ SCH (21:23)
--- NOTE | 2018-09-15 22:03 | Hospitalist Progress Note ---
Date of Service September 15, 2018 Assessment & Plan (1) TIA (transient ischemic attack): left-sided facial numbness. work-up to date including MRI brain, CTA head/neck, telemetry all normal/negative. had echo 2 weeks ago in [place] - awaiting those records. certainly possible that early disseminated Lyme's could have contributed to presenting symptoms but uncertain. appreciate Dr. Parada's consult. plan - change aspirin to plavix for secondary prevention. LDL is >100; ideally should be on statin. old [facility] records suggest statin intolerance. consider 30-day event monitor to r/o PAF. Dr. Parada doubts seizure but suggests leaving lamictal at 100mg BID. see discussion below re: Lyme's. Present on Admission?: Yes (2) Numbness and tingling of left side of face: see "TIA" above. symptoms now resolved. Present on Admission?: Yes (3) Lyme disease: Review of old records shows numerous "equivocal" IgM results and several positive IgG levels Western Blots, however, have been consistently negative in the past However, given the context of his presentation this admission, along with his recent hospital stay in [place] for worsening ataxis, could he have early disseminated Lyme's (e.g. CAST SHELL GRINDER lyme's)? as precautionary measure I have elected to treat with rocephin 2gm IV daily consider formal ID consult may need Midline PICC if 2-week rocephin course is final plan Present on Admission?: Yes (4) History of CVA (cerebrovascular accident): perioperative stroke - presumed embolic- in setting of aortic valve surgery in the past he took coumadin x 1 year then stopped several years ago tele normal this admission (5) History of aortic valve replacement: noted bioprosthetic await echo results from [place] -- taken 2 weeks ago in [facility] hospital (6) Peripheral neuropathy: long-standing etiology uncertain cymbalta for pain control (7) Depression: lamictal 100mg BID recommended by Dr. Parada for seizure d/o and mood (8) DVT prophylaxis: lovenox daily updated twice at bedside today Change to full admit status. I certify that the inpatient services were ordered in accordance with Medicare regulations governing the order. This includes certification that hospital inpatient services are reasonable and necessary and in the case of services not specified as inpatient-only under 42 CFR 419.22(n), that they are appropriately provided as inpatient services in accordance to with the 2-midnight benchmark under 43 CFR 412.3(e) Subjective patient reports that his facial numbness has resolved denies any new neuro symptoms ataxia is at baseline re: hospital stay in [place] - thinks he had carotid dopplers and echo along with MRI brain - all normal hospitalized for worsening ataxia he and his were just in [facility] area for 1 week denies obvious tick bites over the last 1-2 months states he has been treated for Lyme's on at least 1 occasion about 2 years ago Constitutional: no fever and no chills Respiratory: no dyspnea Cardiovascular: no chest pain Gastrointestinal: no abdominal pain Physical Exam Vital Signs (Past 24 Hours): Last Vital Signs Temp 36.3 C L 09/15/18 20:36 Pulse 84 09/15/18 20:36 Resp 20 09/15/18 20:36 BP 126/86 09/15/18 20:36 Pulse Ox 95 09/15/18 20:36 Constitutional: well developed, well nourished and average body habitus; no acute distress and not ill appearing ENMT: external ear and nose normal, oropharynx normal Respiratory: normal respiratory effort, lungs clear to auscultation Cardiovascular: RRR, no murmur, no edema Heart Sounds: normal S1 and normal S2 Vessels: posterior tibial pulses present and dorsalis pedis pulses present; no JVD Extremities: no edema Gastrointestinal (Abdomen): normal bowel sounds, soft, nontender, no hepatosplenomegaly Skin: no rashes, warm and dry Neurologic: sensation intact to light touch over face, arms, legs; strength 5/5 x 4 exts; no facial droop Results & Data Laboratory Results Laboratory Results - last 24 hr 09/15/18 09/15/18 09/15/18 06:12 06:12 06:12 WBC 6.33 RBC 4.56 L Hgb 14.4 Hct 41.2 L MCV 90.4 MCH 31.6 MCHC 35.0 RDW Std Deviation 44.8 RDW Coeff of Stormy 13.5 Plt Count 159 MPV 9.7 Immature Gran % (Auto) 0.3 Neut % (Auto) 43.4 Lymph % (Auto) 35.9 [place] % (Auto) 14.4 Eos % (Auto) 5.2 Baso % (Auto) 0.8 Immature Gran # (Auto) 0.02 Neut # (Auto) 2.75 Lymph # (Auto) 2.27 [place] # (Auto) 0.91 H Eos # (Auto) 0.33 Baso # (Auto) 0.05 Sodium 135 L Potassium 3.7 Chloride 102 Carbon Dioxide 29 Anion Gap 4.0 BUN 12 Creatinine 0.82 Est Cr Clr Drug Dosing 77.9 Est GFR ( Amer) 98.9 Est GFR (Non-Af Amer) 85.3 BUN/Creatinine Ratio 14.2 Glucose 91 Estimat Average Glucose 108 Hemoglobin A1c 5.4 Calcium 8.5 Triglycerides 106 Cholesterol 180 LDL Cholesterol, Calc 108 VLDL Cholesterol, Calc 21 HDL Cholesterol 51 Cholesterol/HDL Ratio 4 Lyme Disease IgG Ab Lyme Disease IgM Ab 09/15/18 06:12 WBC RBC Hgb Hct MCV MCH MCHC RDW Std Deviation RDW Coeff of Stormy Plt Count MPV Immature Gran % (Auto) Neut % (Auto) Lymph % (Auto) [place] % (Auto) Eos % (Auto) Baso % (Auto) Immature Gran # (Auto) Neut # (Auto) Lymph # (Auto) [place] # (Auto) Eos # (Auto) Baso # (Auto) Sodium Potassium Chloride Carbon Dioxide Anion Gap BUN Creatinine Est Cr Clr Drug Dosing Est GFR ( Amer) Est GFR (Non-Af Amer) BUN/Creatinine Ratio Glucose Estimat Average Glucose Hemoglobin A1c Calcium Triglycerides Cholesterol LDL Cholesterol, Calc VLDL Cholesterol, Calc HDL Cholesterol Cholesterol/HDL Ratio Lyme Disease IgG Ab Positive H Lyme Disease IgM Ab Equivocal H (1) Peripheral neuropathy Peripheral neuropathy type: polyneuropathy, unspecified Qualified Code(s): G62.9 - Polyneuropathy, unspecified (2) Depression Depression Type: unspecified Qualified Code(s): F32.9 - Major depressive disorder, single episode, unspecified
[2018-09-16 05:28] LABS: Basophils # (auto) 0.09 K/uL (0-0.2); Basophils % (auto) 1.2 %; Eosinophils # (auto) 0.39 K/uL (0-0.5); Eosinophils % (auto) 5.3 %; Hematocrit (blood only) 43.1 % (42-52); Hemoglobin 15.1 g/dL (14.0-18.0); Immature Granulocytes # (auto) 0.02 K/uL (0.00-0.02); Immature Granulocytes % (auto) 0.3 %; Lymphocytes % (auto) 32.3 %; Mean Corpuscular Volume 91.5 fL (80-100); Mean Platelet Volume 9.6 fL (7.4-10.4); Monocytes # (auto) 1.03 K/uL (0.11-0.59); Monocytes % (auto) 13.9 %; Neutrophils # (auto) 3.49 K/uL (1.4-6.5); Platelet Count 170 K/uL (130-400); RDW Coefficient of Variation 13.5 % (11.5-14.5); RDW Standard Deviation 45.2 fL (36.4-46.3); Red Blood Count 4.71 M/uL (4.7-6.1); White Blood Count 7.42 K/uL (4.8-10.8)
[2018-09-16 05:44] LABS: BUN Creatinine Ratio 14.8 (10-20); Calcium 8.5 mg/dl (8.5-10.1); Creatinine Clr Calc Pharmacy 63.9 ml/min; Est GFR (African American) 83.8; Est GFR (Non-African American) 72.3; Potassium 3.9 mmol/L (3.5-5.1)
[2018-09-16] MEDS ORDERED: lamoTRIgine 100 MG TAB PO SCH (09:00)
[2018-09-16] MEDS ORDERED: CLOPIDOGREL BISULFATE 75 MG TAB PO SCH (09:00)
[2018-09-16] MEDS: cefTRIAXone SODIUM 2,000 MG in DEXTROSE 5% 50 ML IV SCH (09:17)
[2018-09-16] MEDS ORDERED: STROKE PATIENT DISCHARGE STA (11:03)
--- NOTE | 2018-09-16 11:42 | Neurology Progress Note ---
Date of Service September 16, 2018 Assessment & Plan (1) TIA (transient ischemic attack): The patient had the onset of left facial numbness September 14 which resolved by the next morning. This was consistent with a transient ischemic attack in the right hemisphere. Clinically he has no focal neurologic findings on exam with no weakness, numbness, balance problems, or coordination issues. However, he does have a droop at the corner of the mouth on the left which is probably new and not related to his previous stroke. He has no meningeal signs or encephalopathy but he does have mild cognitive impairment and memory issues. Patient had an episode a couple of weeks ago in [place] which I am not convinced was a TIA (although it is possible). We are waiting records. Risk factors for stroke include some cardiac issues in the past, hypertension, and dyslipidemia. He has been on 81 milligram aspirin tablet daily. Patient has a positive Lyme IgG and equivocal IgM on screening test. The certainly, Lyme disease and central nervous system Lyme disease can create intermittent neurologic deficits. 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 Has some very minimal the carotid stenosis bilaterally as noted by CT angiography. (3) Seizure: Patient has a history of focal seizures secondary to his the stroke in February of 2013. He was doing very well and we were tapering off Lamictal. I do not believe any of his symptomatology is related to seizures but I cannot entirely exclude this. He has had no seizure activity in the hospital. (4) Depression: He has a history of depression which is been worse recently. Cymbalta was initiated partially to help mood is tolerating it fairly well so far. Patient has mild cognitive impairment with atrophy noted on MRI of the brain. This has been fairly stable over time but his cognitive function may be slightly worse since yesterday. Cognitive function is stable and his mood is stable. (5) Peripheral neuropathy: Patient has a history of polyneuropathy with pain and dysesthesias distally in the feet. Cymbalta was initiated partially for this problem and he is actually had some improvement so far after a few days. Recommendations: 1. Continue clopidogrel 75 milligrams daily (and stay off aspirin). 2. Continue Lamictal to 100 milligrams twice daily and keep at this dose. 3. Continue Cymbalta 30 milligrams daily for mood and neuropathy pain. 4. Obtain records from [place] from 2 weeks ago. 5. There is no need to initiate medication at this time for his mild cognitive impairment. This could be reconsidered as an outpatient. 6. There is no need for any additional testing, treatment, or consultation for his minimal carotid stenoses. Plavix may help this. 7. The patient could be on doxycycline and I will follow-up Western blot as an outpatient and consider evaluation and treatment for central nervous system Lyme disease (3-4 weeks of IV Rocephin via PICC line) as an outpatient. Overall, I spent a total of 25 minutes with this case including review of records, direct evaluation the patient at bedside, and discussion of the case with the patient and his at bedside, and Dr. Rea, including differential diagnosis and treatment options. Subjective Feels well. He is improved with this thinking and has no weakness or numbness. Blood pressure is 151/85. CBC and Chem profile were unremarkable. Lipid profile is unremarkable as well. Lyme IgG was positive and IgM worse equivocal in the screening test. Western blot is pending. He received [address] angiography of the neck showed some plaque with 40 percent stenosis bilaterally at the carotid bifurcations. CT angiography of the head showed no significant stenoses or vascular anomalies. Physical Exam Vital Signs (Past 24 Hours): Last Vital Signs Temp 36.5 C 09/16/18 11:33 Pulse 67 09/16/18 11:33 Resp 16 09/16/18 11:33 BP 146/94 H 09/16/18 11:33 Pulse Ox 94 09/16/18 11:33 Physical Exam: He is awake and alert. Speech is without aphasia or dysarthria. Mood and affect are normal appropriate. Thought processes are intact to conversation. Extraocular eye muscles are intact without nystagmus. There is no facial droop. Stance is good sitting in bed. Coordination is normal in the arms and strength is symmetrical. (1) Depression Depression Type: unspecified Qualified Code(s): F32.9 - Major depressive disorder, single episode, unspecified (2) Peripheral neuropathy Peripheral neuropathy type: polyneuropathy, unspecified Qualified Code(s): G62.9 - Polyneuropathy, unspecified
--- NOTE | 2018-09-16 14:54 | Infectious Disease Consult ---
Date of Consultation September 16, 2018 Assessment & Plan (1) Lyme disease: Weakness: Had Lyme discussion with patient and his who is at bedside he has had a negative neurologic workup in certainly his symptoms could be due to TIA however with his Lyme screen being positive this does raise the concern neurologic Lyme disease although his symptoms resolved. He states that he has had similar symptoms in past. He has been treated with 2 courses of oral doxycycline past successfully although I do not know the definitive Lyme disease diagnosis. He does not wish to undergo PICC line and IV antibiotics this time as he feels that oral antibiotics would be sufficient as we await his Western blot. However he is agreeable if his Western blot returned positive he does have return of his neurologic symptoms he would be agreeable to IV antibiotics at time however currently in the absence symptoms and no definitive diagnosis of Lyme disease being made is his Western blot is pending he would like to proceed with oral doxycycline only. I would recommend a 28 day course of oral do xycycline. Should he have any return of his symptoms can further discuss transitioning to IV Rocephin at that time. He is agreeable with this plan. He is anxious to be discharged home and I do not see any contraindication to discharge from an infectious diseases standpoint. He can follow-up with infectious diseases as-needed upon discharge if he has return of his symptoms and desires intravenous antibiotics. This was discussed with primary service. History of Present Illness Attending Physician: Lalit Rea Patient was admitted with sudden onset left facial numbness and some ataxic gait. He does have a history of CVA in 2013. He was recently hospitalized in [place] for similar symptoms that resolved. He did have extensive workup including a CTA of the head and MRI of the brain which were all negative. His symptoms have resolved. As part of his workup on Lyme screen was done and was positive. The Western blot is pending. He was started on Rocephin empirically yesterday. He has had 2 doses. He states his symptoms have resolved and he is anxious to be discharged. He is also being followed by Neurology. Denies any fevers or chills. He denies any arthralgias myalgias headaches visual changes. He denies any facial drooping. He states his numbness has resolved. His white blood cell count has been normal. He has been afebrile since admission. He does spend some time outdoors but denies any tick bites or rashes. They do have 2 cats at home. His is present during my examination. He denies any chest pain cough shortness of breath. He denies any nausea vomiting diarrhea or abdominal pain. Infectious Diseases was consulted for the possibility of neurologic Lyme disease and questionable need for intravenous antibiotics upon discharge to home. Allergies Allergy/AdvReac Type Severity Reaction Status Date / Time codeine AdvReac Intermediate GI SYMPTOMS Verified 09/14/18 17:01 acetaminophen [From Percocet] AdvReac Unknown Unverified 09/14/18 17:01 oxycodone [From Percocet] AdvReac Unknown Unverified 09/14/18 17:01 NARCOTICS AdvReac Severe NAUSEA Uncoded 09/14/18 17:01 Home Medications Home Medications Medication Instructions Recorded Confirmed Type sildenafil [Viagra] 50 mg PO DAILY PRN 04/22/18 09/14/18 History duloxetine 30 mg PO DAILY 09/14/18 09/14/18 History clopidogrel 75 mg PO QAM #30 tab 09/16/18 Rx doxycycline hyclate 100 mg PO BID 28 Days #56 tab 09/16/18 Rx lamotrigine 100 mg PO BID #60 tab 09/16/18 Rx pantoprazole [Protonix] 40 mg PO DAILY #30 tab 09/16/18 Rx Patient History Medical History Heart disease (Chronic) Seizure (Resolved) Repair of rotator cuff by suture (Resolved 01/23/13) Dizziness (Acute) Headache (Acute) Weakness (Resolved) CVA (cerebral vascular accident) (Acute) Abnormal involuntary movement Bleeding on Coumadin (Acute) Chest pain (Acute) Facial weakness (Acute) Intractable nausea and vomiting Left arm pain Left face and left arm tingling Left facial numbness Left-sided weakness Lightheadedness (Acute) Lyme disease (Acute) Neurological symptoms Supratherapeutic INR (Acute) Vertigo (Acute) Surgical History H/O aortic aneurysm repair (Resolved) H/O aortic valve replacement (Resolved) Family History Mother , age 70 of lung cancer Lung cancer COPD (chronic obstructive pulmonary disease) Father , age 91 of prostate cancer Prostate cancer Coronary heart disease Other Cancer Heart disease Social History Preferred Language: [place] Beliefs That Will Affect Care: None marital status: Current Living Situation: Family current occupational status: retired Other Information That Helps Us Care for You: No Feels Safe at Home: Yes Smoking Status: Never smoker Hx Alcohol Use: Yes Hx Substance Use: No Review of Systems all remaining ros reviewed and are negative Physical Exam Vital Signs (Past 24 Hours): Last Vital Signs Temp 36.5 C 09/16/18 13:03 Pulse 84 09/16/18 13:03 Resp 16 09/16/18 13:03 BP 151/85 H 09/16/18 13:03 Pulse Ox 94 09/16/18 13:03 Constitutional: WD/WN, vitals as above Eyes: PERRL, conjunctivae normal, anicteric sclerae ENMT: external ear and nose normal, oropharynx normal Neck: trachea midline, no thyromegaly normal visual inspection Respiratory: normal respiratory effort, lungs clear to auscultation Cardiovascular: RRR, no murmur, no edema Gastrointestinal (Abdomen): normal bowel sounds, soft, nontender, no hepatosplenomegaly Musculoskeletal: no cyanosis or clubbing, extremities motor strength 5/5 Skin: no rashes, warm and dry Neurologic: normal touch/pain/proprioception and awake; not confused Speech / Cognition: normal speech Psychiatric: A+Ox3, euthymic affect
[2018-09-17 10:29] LABS: 18KDIGG Band NONREACTIVE (NONREACTIVE); 23KDIGG Band REACTIVE (NONREACTIVE); 23KDIGM Band REACTIVE (NONREACTIVE); 28KDIGG Band NONREACTIVE (NONREACTIVE); 30KDIGG Band NONREACTIVE (NONREACTIVE); 39KDIGG Band NONREACTIVE (NONREACTIVE); 39KDIGM Band NONREACTIVE (NONREACTIVE); 41KDIGG Band REACTIVE (NONREACTIVE); 41KDIGM Band REACTIVE (NONREACTIVE); 45KDIGG Band NONREACTIVE (NONREACTIVE); 58KDIGG Band REACTIVE (NONREACTIVE); 66KDIGG Band REACTIVE (NONREACTIVE); 93KDIGG Band NONREACTIVE (NONREACTIVE); Lyme Antibodies, WB IgG NEGATIVE (NEGATIVE); Lyme Antibodies, WB IgM POSITIVE (NEGATIVE)
--- NOTE | 2018-09-25 22:19 | Discharge Summary ---
Date of Service date of admission - September 14, 2018 date of discharge - September 16, 2018 Admission HPI Per Admitting Provider 77-year-old male with a past medical history of CVA in the setting of aortic aneurysm (2013) presents with left facial numbness that began this morning. The patient has had the following deficits since CVA minor left lip lag, progressive memory loss and seizures for which he takes Lamictal. The patient was hospitalized 2 weeks ago in [place] for a stroke workup after experiencing worsening ataxia. The patient states that all imaging was normal during that hospitalization. The patient sees Dr. 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 He says that when he woke up this morning he was feeling a bit off, but did not have any neurologic symptoms. He states that around 10 AM he began to have tingling of his left cheek and numbness. He denies any speech issues, visual changes, motor deficits or any other sensory issues of his upper or lower extremities. 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 Discharge Exam Constitutional well developed, well nourished and average body habitus; no acute distress and not ill appearing ENMT external ear and nose normal, oropharynx normal Respiratory normal respiratory effort, lungs clear to auscultation Cardiovascular RRR, no murmur, no edema Heart Sounds: normal S1 and normal S2 Vessels: posterior tibial pulses present and dorsalis pedis pulses present; no JVD Extremities: no edema Gastrointestinal (Abdomen) normal bowel sounds, soft, nontender, no hepatosplenomegaly Skin no rashes, warm and dry Neurologic PERRL, EOMI, accommodation nl, no face palsy, no dysarthria no focal motor deficits Psychiatric Orientation: alert, oriented to person, oriented to place and oriented to time Discharge Data Allergies Allergy/AdvReac Type Severity Reaction Status Date / Time codeine AdvReac Intermediate GI SYMPTOMS Verified 09/14/18 17:01 acetaminophen [From Percocet] AdvReac Unknown Unverified 09/14/18 17:01 oxycodone [From Percocet] AdvReac Unknown Unverified 09/14/18 17:01 NARCOTICS AdvReac Severe NAUSEA Uncoded 09/14/18 17:01 Consultations 1. neurology - Juanjose Parada MD 2. infectious disease - Mariposa Stone DO 3. PT, OT 4. speech therapy Ordered Studies 1. CT head negative for acute process. 2. MRI brain without acute stroke. 3. CTA head - IMPRESSION: No significant stenosis, occlusion, or aneurysm within the [place]. No change from the prior exam 4. CTA neck - IMPRESSION: 1. Moderate plaque formation of the carotid bifurcations bilaterally. 2. 40% narrowing bilaterally with no significant or high-grade stenosis. 3. Normal vertebral basilar system 5. Lyme's testing - Western Blot pending Hospital Course (1) TIA (transient ischemic attack): Patient presented with left-sided facial numbness. This resolved quickly. Work-up including MRI brain, CTA head/neck, telemetry, and CT head were all normal/negative. Had echo 2 weeks ago in [place] - the limited records we received suggested the echo was normal. Seen by Dr. Juanjose Parada from neurology and his presentation was felt to be consistent with a TIA. 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 Plan - 1. aspirin was changed to plavix for secondary prevention. 2. LDL was >100; ideally should be on statin but [facility] suggest he has had statin intolerance in the past. 3. consider 30-day event monitor to r/o paroxysmal a.fib but would hold off on this until the issue of Lyme's has been resolved. (2) Numbness and tingling of left side of face: see "TIA" above. (3) Lyme disease: Review of old records shows numerous "equivocal" IgM results and several positive IgG levels. Western Blots, however, have been consistently negative in the past. During this admission his IgM was equivocal and his IgG was positive. 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 He did NOT have symptoms/signs of meningitis, however. He was initiated on rocephin 2gm IV daily. He was then formally seen by Dr. Mariposa Stone, ID, and a 4-week course of IV rocephin was recommended via PICC line. The patient adamantly refused to have a PICC placed in the hospital but WAS agreeable to going home on doxycycline BID for 4 weeks. He also DID state that if the Western Blot returned positive for Lyme's that he WOULD at that time agree to the PICC and the course of IV rocephin. He was advised to follow-up with Dr. Stone within 1 week of discharge to review his Western Blot results. (4) History of CVA (cerebrovascular accident): perioperative stroke - presumed embolic- in setting of aortic valve surgery in the past. he took coumadin x 1 year then stopped several years ago. telemetry was normal the entire admission. (5) History of aortic valve replacement: bioprosthetic. had normal echo by report in [place], [place] during his recent hospitalization there. (6) Peripheral neuropathy: long-standing. etiology uncertain. cymbalta for pain control. (7) Depression: lamictal 100mg BID recommended by Dr. Parada for seizure d/o and mood. (8) Seizure: known seizure disorder. Dr. Parada did not feel that his presenting symptoms were from an atypical seizure. However, to be on safe side, the patient was asked to increase his lamictal back to 100mg BID. Total Time Total Time Spent Total Time Spent (In Minutes): 50 Total Time Includes: Examination of the Patient, Discharge Planning, Medication Reconciliation and Communication With Other Providers Discharge Plan Discharge Items Patient Disposition: Home - Self-Care Reason For Visit: Transient Ischemic Attack Discharge Diagnosis: 1. transient ischemic attack 2. suspected lyme's disease Discharge Goals: Diagnostic testing Activity: Resume your previous activity Exercise/Sports: Wait until after follow-up appointment Driving/Machine Use: Resume 3 days after discharge Non-emergency contact: Primary Care Provider and Specialist Call non-emergency contact if: you have any medication questions, your symptoms worsen and your temperature is above 100.5 Follow-up/Referrals: Keith Smith MD [Primary Care Provider] - 09/21/18 1:00 pm (Please, follow up at Dr. Smith's office with Amelie Geronimo PA-C on FridaySeptember 21 at 1:00 pm. *If you need to change this appointment, call the office at [phone].) Mariposa Stone DO [Physician] - 09/29/18 11:30 am (Please, follow up with Dr. Mariposa Stone (infectious disease specialist) on FridaySeptember 29 at 11:30 am. *This office is located in [address] [facility] - big building next to this hospital. If you need to change this appointment, call the office at [phone].) Suyapa Felder PA-C [Physician Sales Development Executive] - 09/30/18 1:00 pm (Please, follow up at [facility]rology Office with Suyapa Felder PA-C on FridaySeptember 30 at 1:00 pm. *This office is located at [address] [facility] in [place]. If you need to change this appointment, call the office at [phone].) Diet: Heart Healthy Addtl Provider Instructions: You were admitted due to left facial numbness which ultimately resolved. Dr. Parada saw you from neurology and felt that this was likely a "transient ischemic attack." A "TIA" is NOT the same thing as a stroke but is a risk factor for future stroke. It is a neurological symptom(s) that comes on and resolves quickly. Your MRI of the brain did NOT show stroke. Your CAT scans showed mild plaque build-up in the neck arteries but not of a severe degree. Ideally you should take cholesterol medication but your records indicate that you have not tolerated "statin" drugs in the past. Dr. Parada and myself also feel that you may have Lyme's disease and, if truly present, could some how be playing a role in the recent neurological symptoms you have had. At this time we recommend - 1. stop your aspirin. 2. start clopidogrel 75mg once daily for prevention of future TIA/stroke. 3. increase your lamictal to 100mg BID; new prescription given. 4. take pantoprazole 40mg once daily for reduction of acid and protection of your stomach while on doxycycline. Take for 1 month. 5. start doxycycline 100mg twice daily for 28 days. This is your Lyme's treatment. Please know you may need IV antibiotics depending on your confirmatory Lyme's testing. The doxycycline can cause a rash if you go out in the sun. Thus, cover up and use sunscreen while on doxycycline. It can also cause heartburn. Follow-up - 1. Dr. Parada - next [address] Stone - next 7-[address] Smith - 2-3 weeks Return to [facility] if - * you have fevers over 100.5 degrees * you develop any new neurological symptoms (weakness, numbness, difficulty speaking or swallowing, difficulty with balance, etc) * any other concerns Additional information: Risk Factors for Stroke: You can reduce your chances of stroke by working with your medical provider to adopt a healthy lifestyle. Some specific ways to lower your chance of stroke are: * If you are a smoker, now is the time to stop smoking cigarettes * If you are diabetic, improve the control of your blood sugars * Avoid excessive amounts of alcohol * Control high blood pressure * Lose weight if you are overweight * Be sure to lead an active lifestyle * Eat a healthy diet low in salt, cholesterol and fat You should know about other risk factors for stroke that you are unable to control. These include: * Age 55 years or older * Male gender * Certain racial groups: , or / * Family History of Stroke, Mini stroke or Heart Attack * Sickle Cell Disease Follow Up: It is important for you to keep your follow up appointments with your medical provider. Who to Call and When: Medical Emergencies: Call 911 immediately if you experience any of the following warning signs and symptoms of Stroke: * Sudden numbness or weakness of the face, arm or leg, especially on one side of the body * Sudden confusion, trouble speaking or understanding * Sudden trouble seeing in one or both eyes * Sudden trouble walking, dizziness, loss of balance or coordination * Sudden severe headache with no cause Do not delay calling 911 if you experience any warning signs or symptoms of a stroke. Delay in seeking medical attention may affect what treatments can be given to you. . Prescriptions: New clopidogrel 75 mg Tablet 75 mg PO QAM Qty: 30 RF: 5 doxycycline hyclate 100 mg tablet 100 mg PO BID 28 Days Qty: 56 RF: 0 pantoprazole [Protonix] 40 mg tablet,delayed release (DR/EC) 40 mg PO DAILY Qty: 30 RF: 0 lamotrigine 100 mg tablet extended release 24hr 100 mg PO BID Qty: 60 RF: 5 Continued sildenafil [Viagra] 50 mg Tablet 50 mg PO DAILY PRN (Reason: Erectile Dysfunction) RF: 0 duloxetine 30 mg capsule,delayed release(DR/EC) 30 mg PO DAILY RF: 0 Discontinued aspirin [Aspir-81] 81 mg Tablet,Delayed Release (Dr/Ec) 81 mg PO DAILY RF: 0 Stand-Alone Forms: [facility]/Other Patient Handouts: ED Transient Ischemic Attack Discharge Orders: Discharge Order (Routine); Ordered 09/16/18 Ordered By: Lalit Rea Admission Data Admit Date/Time: 09/15/18 22:31 Attending Provider: Lalit Rea Admit Provider: Will Day Primary Care Provider: Keith Smith Other Providers: Florenico Parada III ; Mariposa Stone Service: Telemetry Medical Other Interventions: Discharge Summary Assessment (RN) Last Done: 09/16/18 13:03 Pending Studies at Discharge: Yes Studies:: confirmatory lyme's testing DC Date/Time DO NOT enter until pt leaves facility: 09/16/18 14:01
== END 2018-09-16 14:01 | disposition home or self-care (01) | DRG 69 ==
LOC: ED 16:33 → 2N 16:33 → SUATTDRO 19:47 → 2N 19:56
DX: Z79.82 Long term (current) use of aspirin; Z79.899 Other long term (current) drug therapy; I69.319 Unspecified symptoms and signs involving cognitive functions following cerebral infarction; G62.9 Polyneuropathy, unspecified; Z88.6 Allergy status to analgesic agent; R56.9 Unspecified convulsions; G45.9 Transient cerebral ischemic attack, unspecified; A69.22 Other neurologic disorders in Lyme disease; Z95.3 Presence of xenogenic heart valve; I69.311 Memory deficit following cerebral infarction; I69.398 Other sequelae of cerebral infarction; Z88.5 Allergy status to narcotic agent; I69.392 Facial weakness following cerebral infarction; F32.9 Major depressive disorder, single episode, unspecified

== ENCOUNTER 2022-08-03 16:31 | Observation (INO) ==
--- NOTE | 2022-08-03 16:41 | Emergency Department Note ---
Impression & Plan Complicated urinary tract infection, Leukocytosis, Hyponatremia ED Provider Note NAME: BRODERICK ARMANDO AGE: 81 SEX: M : 1940 ARRIVES VIA: Ambulance INFORMANT: Patient, ED PROVIDER(S): Alfred Castro MD CHIEF COMPLAINT: MEDICAL DECISION MAKING: Patient presents with family due to concern for hematuria that began this morn ing which has slightly improved the patient has had some increasing weakness as well as not being himself. Blood work was obtained and IV was established patient was ordered IV fluids urinalysis urine culture. CT of the head was also obtained as the patient did have a fall within the last week and he states that he has not been quite himself. Chest x-ray is unremarkable and negative CT of the head. The patient's blood work shows white count of 18 with a normal H&H and platelet count. Hyponatremia at 130 compared to prior is worse from before. Bilirubin 1.2 but no right upper quadrant pain. Patient's urinalysis does show the possibility of infection. Cefepime was ordered given the patient's recent urologic procedure and to avoid any quinolones given the patient's baseline cognitive issues. I did speak the on-call hospitalist service and the patient was admitted to the medicine service. Prior /Outside records reviewed: None Differential diagnosis: Cystitis, postprocedural bleeding, kidney stone, urethritis, bladder polyp, RCC, pyelonephritis among others were considered Diagnostics, as interpreted by me: ECG: None Cardiac monitoring: An order was placed for continuous cardiac monitoring. The monitor shows a rate of 88 with sinus rhythm. Patient was placed on pulse oximetry Medical decision rules: none Imaging studies: See below HPI: Patient presents due to concern for increasing weakness and hematuria. The patient is accompanied by his and daughter at bedside. The patient denies any chest pains or shortness of breath no fevers or chills. The patient did have a urinary test where the patient did have a probe in the anus and did have a cystoscopy which showed the patient likely has a "blockage" with related to an enlarged prostate. Patient does have a history of urinary incontinence and he did have this procedure completed by Dr. Anguiano done at [facility] on . Family states the patient does take a baby aspirin. He has had some increasing weakness and fatigue. Patient did have a fall 1 week prior to where he was bending over and fell striking his head although he was wearing a neck They noted that he did not have any bruising or bleeding at that time. The states that she believes that the hematuria was more veronika blood and now it is a mix to where it is blood-tinged urine. Patient is not on any current antibiotics. Patient does have a known history of cognitive issues and has mild dementia per family at bedside PAST MEDICAL HISTORY: See Below PAST SURGICAL HISTORY: See Below SOCIAL HISTORY: See Below HOME MEDICATIONS: See Below ALLERGIES: See Below VITALS: See Below PHYSICAL EXAMINATION: GENERAL: NAD, wearing a mask, non-toxic. EYE EXAM: Normal conjunctiva. PERRL, no anisocoria and EOM's grossly intact w/o pain. NECK: Supple, no nuchal rigidity, no adenopathy, non-tender. No signs of meningismus. FROM of the neck with good chin to chest and neck extension. No stridor. Chest: Well-healed midline sternotomy scar. LUNGS: Clear to auscultation. Normal chest wall mechanics. HEART: NSR, no MRG. ABDOMEN: Abdomen soft, non-tender, normo-active bowel sounds, no masses, no rebound or guarding. BACK: No CVA TTP. SKIN: No rashes and no bruising. : Circumcised, no evidence of any redness to the penis or scrotum. Scant blood noted in the brief. UPPER EXTREMITIES: Upper extremities are grossly normal. LOWER EXTREMITIES: Grossly normal, no edema. NEURO EXAM: Awake and alert, follows basic commands,, cranial nerves II-XII grossly intact, normal speech, moves all 4 extremities. Past Med/Surg History Medical History Aneurysm of aortic arch Cerebral infarction, unspecified History of anesthesia reaction WITH HERNIA SURGERY ([place]) HAD TROUBLE WAKING UP History of bicuspid aortic valve History of stroke 2012 - RESIDUAL: STABILITY ISSUE History of TIA (transient ischemic attack) SEPTEMBER 14, 2018 - (USUALLY TIA OCCURS 1X PER YR/STARTED 5 YR AGO)/DR FARRELL Lyme disease Seizure X1 OR 2 - WHEN TX FOR STROKE IN 2012/ DR FARRELL Surgical History H/O aortic aneurysm repair H/O aortic valve replacement 2014 - AND BICUSPID VALVE REPLACED AT SAME TIME PER PT REPORT /"OPEN HEART" DENIES HAVING [employer] THAT HE FOLLOWS WITH History of appendectomy (03/16/13) History of colonoscopy History of hernia surgery X2 History of repair of right rotator cuff Family History Mother , age 70 of lung cancer Lung cancer COPD (chronic obstructive pulmonary disease) Father , age 91 of prostate cancer Prostate cancer Coronary heart disease Myocardial infarction Family/Other Breast cancer Cancer Other Heart disease No family history of adverse response to anesthesia No family history of bleeding disorder Social History Smoking Status: Never smoker Second Hand Exposure: No; Do You Dip or Chew Tobacco: No; Tobacco Cessation Education Requested by Patient: No Hx Alcohol Use: Yes Alcohol type: beer Alcohol Intake Frequency Comment: One beer per week Hx Substance Use: No Preferred Language: Kiswahili Communication Ability: Effective Visual Impairment: No Limitations Deputy Commissioner Required: No Beliefs That Will Affect Care: None marital status: Current Living Situation: Spouse current occupational status: retired Other Information That Helps Us Care for You: No Feels Safe at Home: Yes Safety Concerns: Feels Safe At This Time Assistive Devices: Walker Assistive Devices Comment: Unsure if pt has glasses at home, he could not remember Allergies Allergies Allergy/AdvReac Type Severity Reaction Status Date / Time codeine AdvReac Intermediate GI SYMPTOMS Verified 08/03/22 19:13 Opioids - Morphine Analogues AdvReac Intermediate Vomiting Verified 08/03/22 21:41 Opioids-Meperidine and AdvReac Intermediate Vomiting Verified 08/03/22 21:41 Related Opioids-Methadone and Related AdvReac Intermediate Vomiting Verified 08/03/22 21:41 oxycodone [From Percocet] AdvReac Intermediate n/v Verified 08/03/22 19:13 Home Meds Home Medications Medication Instructions Recorded Confirmed aspirin 81 mg tablet,delayed 81 mg PO QPM 11/05/18 08/03/22 release (Julian Low Dose Aspirin) multivitamin 1 tab PO QAM 08/05/20 08/03/22 cholecalciferol (vitamin D3) 25 25 mcg PO QAM 01/29/21 08/03/22 mcg (1,000 unit) capsule acetaminophen 325 mg tablet 650 mg PO DIRECTED PRN Fever Or 01/31/22 08/03/22 Pain psyllium seed (sugar) oral powder 1 tbsp PO DAILY 04/24/22 08/03/22 (Metamucil (sugar) oral powder) mirabegron 25 mg tablet,extended 25 mg PO HS 08/03/22 08/03/22 release 24 hr Previous Rx's Medication Instructions Recorded folic acid 1 mg tablet 1 mg PO DAILY #90 tabs 07/15/22 Results & Data (ED) Vital Signs Vital Signs - 24 hr 08/03/22 16:35 08/03/22 16:35 08/03/22 17:04 Temperature 36.9 C 36.9 C Temperature Source Oral Oral Pulse Rate 87 82 Pulse Rate [Right Finger] 87 Pulse Rate from SpO2 Sensor Pulse Rhythm Regular Pulse Rhythm [Right Finger] Regular Pulse Strength Normal Pulse Strength [Right Finger] Normal Respiratory Rate 25 H 25 H Respiratory Effort / Characteristics Non-Labored Spontaneous Non-Labored Spontaneous Respiratory Depth Normal Normal Respiratory Pattern Tachypnea Tachypnea Blood Pressure 155/90 H Blood Pressure [Right Arm] 155/90 H Blood Pressure Mean 111 Blood Pressure Mean [Right Arm] 111 Blood Pressure Position Sitting Blood Pressure Position [Right Arm] Sitting Pulse Oximetry 97 97 Oxygen Delivery Method Room Air Room Air Sepsis Recent Fever Within 48 Hours No Sepsis New/Unexplained Change in Mental Status No Sepsis Action Taken by Nursing No Action Required 08/03/22 16:48 08/03/22 16:57 08/03/22 17:07 Temperature Temperature Source Pulse Rate 87 86 84 Pulse Rate [Right Finger] Pulse Rate from SpO2 Sensor 84 Pulse Rhythm Regular Pulse Rhythm [Right Finger] Pulse Strength Pulse Strength [Right Finger] Respiratory Rate 25 H 24 Respiratory Effort / Characteristics Respiratory Depth Respiratory Pattern Blood Pressure Blood Pressure [Right Arm] Blood Pressure Mean Blood Pressure Mean [Right Arm] Blood Pressure Position Blood Pressure Position [Right Arm] Pulse Oximetry 98 96 Oxygen Delivery Method Room Air Sepsis Recent Fever Within 48 Hours Sepsis New/Unexplained Change in Mental Status Sepsis Action Taken by Nursing 08/03/22 17:10 08/03/22 17:20 08/03/22 17:30 Temperature Temperature Source Pulse Rate 83 88 82 Pulse Rate [Right Finger] Pulse Rate from SpO2 Sensor Pulse Rhythm Pulse Rhythm [Right Finger] Pulse Strength Pulse Strength [Right Finger] Respiratory Rate 24 25 H 25 H Respiratory Effort / Characteristics Respiratory Depth Respiratory Pattern Blood Pressure Blood Pressure [Right Arm] Blood Pressure Mean Blood Pressure Mean [Right Arm] Blood Pressure Position Blood Pressure Position [Right Arm] Pulse Oximetry Oxygen Delivery Method Sepsis Recent Fever Within 48 Hours Sepsis New/Unexplained Change in Mental Status Sepsis Action Taken by Nursing 08/03/22 17:40 08/03/22 17:50 08/03/22 18:00 Temperature Temperature Source Pulse Rate 82 86 86 Pulse Rate [Right Finger] Pulse Rate from SpO2 Sensor Pulse Rhythm Pulse Rhythm [Right Finger] Pulse Strength Pulse Strength [Right Finger] Respiratory Rate 29 H 29 H 27 H Respiratory Effort / Characteristics Respiratory Depth Respiratory Pattern Blood Pressure Blood Pressure [Right Arm] Blood Pressure Mean Blood Pressure Mean [Right Arm] Blood Pressure Position Blood Pressure Position [Right Arm] Pulse Oximetry Oxygen Delivery Method Sepsis Recent Fever Within 48 Hours Sepsis New/Unexplained Change in Mental Status Sepsis Action Taken by Nursing 08/03/22 18:10 08/03/22 18:20 08/03/22 18:30 Temperature Temperature Source Pulse Rate 85 87 86 Pulse Rate [Right Finger] Pulse Rate from SpO2 Sensor 87 87 Pulse Rhythm Pulse Rhythm [Right Finger] Pulse Strength Pulse Strength [Right Finger] Respiratory Rate 29 H 26 H 26 H Respiratory Effort / Characteristics Respiratory Depth Respiratory Pattern Blood Pressure Blood Pressure [Right Arm] Blood Pressure Mean Blood Pressure Mean [Right Arm] Blood Pressure Position Blood Pressure Position [Right Arm] Pulse Oximetry 96 95 Oxygen Delivery Method Sepsis Recent Fever Within 48 Hours Sepsis New/Unexplained Change in Mental Status Sepsis Action Taken by Nursing 08/03/22 18:40 Temperature Temperature Source Pulse Rate 88 Pulse Rate [Right Finger] Pulse Rate from SpO2 Sensor Pulse Rhythm Pulse Rhythm [Right Finger] Pulse Strength Pulse Strength [Right Finger] Respiratory Rate 26 H Respiratory Effort / Characteristics Respiratory Depth Respiratory Pattern Blood Pressure Blood Pressure [Right Arm] Blood Pressure Mean Blood Pressure Mean [Right Arm] Blood Pressure Position Blood Pressure Position [Right Arm] Pulse Oximetry Oxygen Delivery Method Sepsis Recent Fever Within 48 Hours Sepsis New/Unexplained Change in Mental Status Sepsis Action Taken by Correction Medications Current Medication List: was personally reviewed by me Laboratory Data Attestation: I reviewed the patient's lab results. 08/03/22 16:20 08/03/22 16:20 Lab Results 08/03/22 08/03/22 08/03/22 Range/Units 16:20 16:20 16:20 WBC 18.58 H (4.8-10.8) K/ul RBC 4.73 (4.70-6.10) M/uL Hgb 15.4 (14.0-18.0) g/dl Hct 42.9 (42.0-52.0) % MCV 90.7 (80.0-100.0) fL MCH 32.6 (25.0-34.0) pg MCHC 35.9 (32.0-36.0) g/dL RDW Std Deviation 43.6 (36.4-46.3) fL RDW Coeff of Stormy 13.1 (11.5-14.5) % Plt Count 148 (130-400) K/uL MPV 10.0 (9.4-12.4) fL Immature Gran % (Auto) 0.4 % Neut % (Auto) 89.0 % Lymph % (Auto) 3.7 % [place] % (Auto) 6.4 % Eos % (Auto) 0.2 % Baso % (Auto) 0.3 % Neut # (Auto) 16.54 H (1.40-6.50) K/uL Lymph # (Auto) 0.69 L (1.2-3.4) K/uL [place] # (Auto) 1.18 H (0.11-0.59) K/uL Eos # (Auto) 0.04 (0-0.50) K/uL Baso # (Auto) 0.05 (0-0.2) K/uL Immature Gran # (Auto) 0.08 (0.01-0.20) K/uL Sodium 130 L (136-145) mmol/L Potassium 3.9 (3.5-5.1) mmol/L Chloride 97 L (98-107) mmol/L Carbon Dioxide 27 (21-32) mmol/L Anion Gap 6 (3-11) BUN 14 (6-23) mg/dl Creatinine 0.87 (0.6-1.4) mg/dl Est Cr Clr Drug Dosing 66.6 ml/min Est GFR ( Amer) 93.8 ml/min Est GFR (Non-Af Amer) 80.9 ml/min BUN/Creatinine Ratio 16.1 (10-20) Glucose 128 H (70-99(Fasting)) mg/dl Calcium 9.6 (8.5-10.1) mg/dl Total Bilirubin 1.2 H (0.2-1.0) mg/dl AST 25 (13-39) U/L ALT 21 (7-52) U/L Alkaline Phosphatase 67 (34-104) U/L Total Protein 7.0 (6.0-8.3) gm/dl Albumin 4.2 (3.4-5.0) gm/dl Globulin 2.8 (2.5-4.0) gm/dl Albumin/Globulin Ratio 1.5 (0.9-2) TSH 2.852 (0.300-4.500) uIu/ml Urine Color Urine Appearance (Clear) Urine pH (4.5-7.5) Ur Specific [place] (1.000-1.030) Urine Protein (Negative) Urine Glucose (UA) (Negative) Urine Ketones (Negative) Urine Blood (Negative) Urine Nitrite (Negative) Urine Bilirubin (Negative) Urine Urobilinogen (Negative) Ur Leukocyte Esterase (Negative) Urine RBC (0-4) /hpf Urine WBC (0-5) /hpf Ur Epithelial Cells (0-5) /lpf Urine Bacteria (Negative) 08/03/22 Range/Units 17:41 WBC (4.8-10.8) K/ul RBC (4.70-6.10) M/uL Hgb (14.0-18.0) g/dl Hct (42.0-52.0) % MCV (80.0-100.0) fL MCH (25.0-34.0) pg MCHC (32.0-36.0) g/dL RDW Std Deviation (36.4-46.3) fL RDW Coeff of Stormy (11.5-14.5) % Plt Count (130-400) K/uL MPV (9.4-12.4) fL Immature Gran % (Auto) % Neut % (Auto) % Lymph % (Auto) % [place] % (Auto) % Eos % (Auto) % Baso % (Auto) % Neut # (Auto) (1.40-6.50) K/uL Lymph # (Auto) (1.2-3.4) K/uL [place] # (Auto) (0.11-0.59) K/uL Eos # (Auto) (0-0.50) K/uL Baso # (Auto) (0-0.2) K/uL Immature Gran # (Auto) (0.01-0.20) K/uL Sodium (136-145) mmol/L Potassium (3.5-5.1) mmol/L Chloride (98-107) mmol/L Carbon Dioxide (21-32) mmol/L Anion Gap (3-11) BUN (6-23) mg/dl Creatinine (0.6-1.4) mg/dl Est Cr Clr Drug Dosing ml/min Est GFR ( Amer) ml/min Est GFR (Non-Af Amer) ml/min BUN/Creatinine Ratio (10-20) Glucose (70-99(Fasting)) mg/dl Calcium (8.5-10.1) mg/dl Total Bilirubin (0.2-1.0) mg/dl AST (13-39) U/L ALT (7-52) U/L Alkaline Phosphatase (34-104) U/L Total Protein (6.0-8.3) gm/dl Albumin (3.4-5.0) gm/dl Globulin (2.5-4.0) gm/dl Albumin/Globulin Ratio (0.9-2) TSH (0.300-4.500) uIu/ml Urine Color Red Urine Appearance Cloudy A (Clear) Urine pH (4.5-7.5) Ur Specific [place] 1.015 (1.000-1.030) Urine Protein (Negative) Urine Glucose (UA) (Negative) Urine Ketones (Negative) Urine Blood (Negative) Urine Nitrite (Negative) Urine Bilirubin (Negative) Urine Urobilinogen (Negative) Ur Leukocyte Esterase (Negative) Urine RBC >30 H (0-4) /hpf Urine WBC >30 H (0-5) /hpf Ur Epithelial Cells 0-5 (0-5) /lpf Urine Bacteria 4+ H (Negative) Administered Medications Discontinued Medications Sodium Chloride (Nss 1000ml) 1,000 mls @ 999 mls/hr IV .[id number] BRENDA Stop: 08/03/22 18:00 Last Infusion: 08/03/22 20:56 Dose: 0 mls/hr Documented By: Admin: 08/03/22 18:56 Dose: 999 mls/hr Documented By: [employer]TER Cefepime HCl (Maxipime) 2,000 mg in 20 mls @ 5 mls/min IV NOW STA; Protocol Stop: 08/03/22 18:20 Last Admin: 08/03/22 18:56 Dose: 5 mls/min Documented By: [employer]TER Imaging Data Radiologist's Impression: Chest X-Ray 08/03/22 16:53 XR chest 1V portable CLINICAL HISTORY: weakness COMPARISON STUDY: Chest radiograph May 14, 2022. Chest CT August 05, 2020. FINDINGS: There is no pneumothorax or pleural effusion. No consolidation is identified. There is no evidence for pulmonary edema. Cardiomediastinal silhouette is stable. Cardiomegaly is unchanged. There are median sternotomy wires and mediastinal surgical clips. IMPRESSION: No acute cardiopulmonary findings. No change in appearance of the chest. ACT 112: Negative or not required by law. Electronically signed by: Los Gunn M.D. 08/03/2022 5:[address] 08/03/22 16:53 CT OF THE HEAD WITHOUT CONTRAST CLINICAL HISTORY: Fall. COMPARISON STUDY: Head CT May 14, 2022 and MRI of the brain October 20, 2021. CT DOSE: 691.05 mGy.cm TECHNIQUE: Helical axial images of the head were obtained without IV contrast. Automated exposure control was utilized for the study. A dose lowering technique was utilized adhering to the principles of ALARA. FINDINGS: No acute intracranial hemorrhage, midline shift or mass effect is present. Atrophy is again noted. White matter hypodensity suggests small vessel disease. The appearance of the brain is unchanged. The ventricular system is unr emarkable. The basal cisterns are patent. No extra-axial collections are present. There are no findings to suggest acute dural sinus thrombosis or acute territorial infarct. No significant calvarial abnormalities are present. Visualized portions of the sinuses and mastoid air cells are clear. IMPRESSION: 1. No acute intracranial findings. No change in appearance of the brain. 2. No acute calvarial fracture. ACT 112: Negative or not required by law. Electronically signed by: Los Gunn M.D. 08/03/2022 5:13 PM Discharge Plan Visit Data Chief Complaint: Hematuria ED Provider: Alfred Castro Discharge Problem: Complicated urinary tract infection, Leukocytosis, Hyponatremia Patient Disposition: Admitted As Inpatient Discharge Instructions Interventions: ED Discharge Assessment Last Done: 08/03/22 21:10
[2022-08-03] MEDS ORDERED: SODIUM CHLORIDE 0.9% 1000ML 1,000 ML IV SCH (17:00)
[2022-08-03 17:13] LABS: Basophils # (auto) 0.05 K/uL (0-0.2); Basophils % (auto) 0.3 %; Eosinophils # (auto) 0.04 K/uL (0-0.50); Eosinophils % (auto) 0.2 %; Hematocrit (blood only) 42.9 % (42.0-52.0); Hemoglobin 15.4 g/dl (14.0-18.0); Immature Granulocytes # (auto) 0.08 K/uL (0.01-0.20); Immature Granulocytes % (auto) 0.4 %; Lymphocytes # (auto) 0.69 K/uL (1.2-3.4); Lymphocytes % (auto) 3.7 %; Mean Corpuscular Hemoglobin 32.6 pg (25.0-34.0); Mean Corpuscular Hgb Conc 35.9 g/dL (32.0-36.0); Mean Corpuscular Volume 90.7 fL (80.0-100.0); Monocytes # (auto) 1.18 K/uL (0.11-0.59); Monocytes % (auto) 6.4 %; Neutrophils # (auto) 16.54 K/uL (1.40-6.50); Platelet Count 148 K/uL (130-400); RDW Coefficient of Variation 13.1 % (11.5-14.5); RDW Standard Deviation 43.6 fL (36.4-46.3); Red Blood Count 4.73 M/uL (4.70-6.10); White Blood Count 18.58 K/ul (4.8-10.8)
--- NOTE | 2022-08-03 17:15 | CT Scan Report ---
CT OF THE HEAD WITHOUT CONTRAST CLINICAL HISTORY: Fall. COMPARISON STUDY: Head CT May 14, 2022 and MRI of the brain October 20, 2021. CT DOSE: 691.05 mGy.cm TECHNIQUE: Helical axial images of the head were obtained without IV contrast. Automated exposure con trol was utilized for the study. A dose lowering technique was utilized adhering to the principles o f ALARA. FINDINGS: No acute intracranial hemorrhage, midline shift or mass effect is present. Atrophy is again noted. White matter hypodensity suggests small vessel disease. The appearance of the brain is unchan ged. The ventricular system is unremarkable. The basal cisterns are patent. No extra-axial collection s are present. There are no findings to suggest acute dural sinus thrombosis or acute territorial inf arct. No significant calvarial abnormalities are present. Visualized portions of the sinuses and mast oid air cells are clear. IMPRESSION: 1. No acute intracranial findings. No change in appearance of the brain. 2. No acute calvarial fracture. ACT 112: Negative or not required by law. Electronically signed by: Los Gunn M.D. 08/03/2022 5:13 PM
[2022-08-03 17:32] LABS: Albumin Globulin Ratio 1.5 (0.9-2); Albumin Level 4.2 gm/dl (3.4-5.0); BUN Creatinine Ratio 16.1 (10-20); Bilirubin,Total 1.2 mg/dl (0.2-1.0); Calcium 9.6 mg/dl (8.5-10.1); Creatinine Clr Calc Pharmacy 66.6 ml/min; Est GFR (African American) 93.8 ml/min; Est GFR (Non-African American) 80.9 ml/min; Globulin 2.8 gm/dl (2.5-4.0); Potassium 3.9 mmol/L (3.5-5.1)
--- NOTE | 2022-08-03 17:34 | XRay Report ---
XR chest 1V portable CLINICAL HISTORY: weakness COMPARISON STUDY: Chest radiograph May 14, 2022. Chest CT August 05, 2020. FINDINGS: There is no pneumothorax or pleural effusion. No consolidation is identified. There is no e vidence for pulmonary edema. Cardiomediastinal silhouette is stable. Cardiomegaly is unchanged. There are median sternotomy wires and mediastinal surgical clips. IMPRESSION: No acute cardiopulmonary findings. No change in appearance of the chest. ACT 112: Negative or not required by law. Electronically signed by: Los Gunn M.D. 08/03/2022 5:32 PM
[2022-08-03 18:02] LABS: Appearance Urine Cloudy (Clear); Color Urine Red; Specific Gravity Urine 1.015 (1.000-1.030)
[2022-08-03 18:05] LABS: Bacteria Urine 4+ (Negative); RBC Urine >30 /hpf (0-4); WBC Urine >30 /hpf (0-5)
[2022-08-03 18:06] LABS: Epithelial Cell Urine 0-5 /lpf (0-5)
[2022-08-03] MEDS ORDERED: CEFEPIME 2,000 MG/20 ML VIAL IV STA (18:17)
--- NOTE | 2022-08-03 19:13 | History & Physical Report ---
Date of Service August 03, 2022 Assessment & Plan (1) Gross hematuria: Plan: Stop aspirin. No chemical VTE prophylaxis. CT abdomen pelvis without contrast Consult urology (2) Complicated urinary tract infection: Plan: Suspected Cefepime 2 g IV every 8 hourly Follow-up blood and urine cultures (3) Hyponatremia: Plan: Normal saline given in the ER. Repeat with AM labs (4) Memory loss or impairment: Plan: Monitor for sundowning and delirium (5) Urinary urgency: Plan: Continue mirabegron (6) History of stroke: Plan: Restart aspirin when able. No new lateralizing deficit. Left eye lid dropping when he gets tired reportedly due to this. Plan VTE Prophylaxis - chemical contraindicated in setting of hematuria Diet - regular Disposition - observation status to med/surg Admission and Anticipated Discharge Date Admission Date: Aug 03, 2022 History of Present Illness Chief Complaint: Hematuria Primary Care Provider: Keith Smith MD Keith Lopez is an 81-year-old male with chronic urinary incontinence who presents to the ER with hematuria and weakness. He recently had urodynamic testing performed by urology due to chronic incontinence on (2 days ago). He usually takes an aspirin but is on no other anticoagulation and reportedly has missed his aspirin doses for the last week but cannot give me a reason why. He reports weakness started after urodynamics testing in [place] but progressively got worse. Gross hematuria only started today with associated suprapubic pain and dysuria. Lots of urinary frequency last night with going to the toilet multiple times. He has baseline mild cognitive impairment but his mobility is fu ll without aids. Of note he received no fluoroquinolones with recent testing. He denies any fever, chills or flank pain. He has never had gross hematuria before. Allergies Allergy/AdvReac Type Severity Reaction Status Date / Time codeine AdvReac Intermediate GI SYMPTOMS Verified 08/03/22 19:13 Opioids - Morphine Analogues AdvReac Intermediate Vomiting Verified 08/03/22 21:41 Opioids-Meperidine and AdvReac Intermediate Vomiting Verified 08/03/22 21:41 Related Opioids-Methadone and Related AdvReac Intermediate Vomiting Verified 08/03/22 21:41 oxycodone [From Percocet] AdvReac Intermediate n/v Verified 08/03/22 19:13 Home Medications Medication Instructions Recorded Confirmed Type aspirin 81 mg tablet,delayed 81 mg PO QPM 11/05/18 08/03/22 History release (Julian Low Dose Aspirin) multivitamin 1 tab PO QAM 08/05/20 08/03/22 History cholecalciferol (vitamin D3) 25 25 mcg PO QAM 01/29/21 08/03/22 History mcg (1,000 unit) capsule acetaminophen 325 mg tablet 650 mg PO DIRECTED PRN Fever Or 01/31/22 08/03/22 History Pain psyllium seed (sugar) oral powder 1 tbsp PO DAILY 04/24/22 08/03/22 History (Metamucil (sugar) oral powder) folic acid 1 mg tablet 1 mg PO DAILY #90 tabs 07/15/22 08/03/22 Rx mirabegron 25 mg tablet,extended 25 mg PO HS 08/03/22 08/03/22 History release 24 hr Past Med/Surg History Medical History Aneurysm of aortic arch Cerebral infarction, unspecified History of anesthesia reaction WITH HERNIA SURGERY ([place]) HAD TROUBLE WAKING UP History of bicuspid aortic valve History of stroke 2012 - RESIDUAL: STABILITY ISSUE History of TIA (transient ischemic attack) SEPTEMBER 14, 2018 - (USUALLY TIA OCCURS 1X PER YR/STARTED 5 YR AGO)/DR FARRELL Lyme disease Seizure X1 OR 2 - WHEN TX FOR STROKE IN 2012/ DR FARRELL Surgical History H/O aortic aneurysm repair H/O aortic valve replacement 2013 - AND BICUSPID VALVE REPLACED AT SAME TIME PER PT REPORT /"OPEN HEART" 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 History of appendectomy (03/16/13) History of colonoscopy History of hernia surgery X2 History of repair of right rotator cuff Family History Mother , age 70 of lung cancer Lung cancer COPD (chronic obstructive pulmonary disease) Father , age 91 of prostate cancer Prostate cancer Coronary heart disease Myocardial infarction Family/Other Breast cancer Cancer Other Heart disease No family history of adverse response to anesthesia No family history of bleeding disorder Social History Smoking Status: Never smoker Second Hand Exposure: No; Hx Alcohol Use: Yes Alcohol type: beer Alcohol Intake Frequency Comment: One beer per week Hx Substance Use: No Preferred Language: Welsh Communication Ability: Effective Visual Impairment: No Limitations Compound Mixer Required: No Beliefs That Will Affect Care: None marital status: Current Living Situation: Spouse current occupational status: retired Feels Safe at Home: Yes Assistive Devices: Walker Review of Systems Review of Systems: All systems reviewed & are unremarkable except as noted in HPI & below Physical Exam Constitutional: WD/WN, vitals as above Eyes: + anicteric sclerae; normal pupil size mild drooping of left eye lid ENMT: external ear and nose normal, oropharynx normal Respiratory: normal respiratory effort, lungs clear to auscultation Cardiovascular: Rate/Rhythm: regular rate and regular rhythm Heart Sounds: + murmur (RAGHU 3/6 RUSB) Extremities: + pedal edema (trace pitting b/l equal) Gastrointestinal (Abdomen): Percussion/Palpation: + abdomen tender (suprapubic pain) and abdomen soft; no guarding and abdomen not rigid Musculoskeletal: no cyanosis or clubbing, extremities motor strength 5/5 Skin: no rashes, warm and dry Neurologic: moves all extremities and awake; not confused Psychiatric: Orientation: alert, oriented to person and oriented to place; + not oriented to time Results & Data Results & Data ([facility]) Vital Signs (Past 12 Hours) Vital Signs Temp Pulse Pulse Resp BP BP Pulse Ox 08/03/22 19:00 36.9 C 89 27 H 143/83 H 93 08/03/22 17:04 82 08/03/22 16:35 36.9 C 87 25 H 155/90 H 97 08/03/22 16:35 36.9 C 87 25 H 155/90 H 97 O2 Del Method 08/03/22 19:00 Room Air 08/03/22 17:04 08/03/22 16:35 Room Air 08/03/22 16:35 Room Air Laboratory Results Abnormal lab results 08/03/22 08/03/22 08/03/22 Range/Units 16:20 16:20 17:41 WBC 18.58 H (4.8-10.8) K/ul Neut # (Auto) 16.54 H (1.40-6.50) K/uL Lymph # (Auto) 0.69 L (1.2-3.4) K/uL [place] # (Auto) 1.18 H (0.11-0.59) K/uL Sodium 130 L (136-145) mmol/L Chloride 97 L (98-107) mmol/L Glucose 128 H (70-99(Fasting)) mg/dl Total Bilirubin 1.2 H (0.2-1.0) mg/dl Urine Appearance Cloudy A (Clear) Urine RBC >30 H (0-4) /hpf Urine WBC >30 H (0-5) /hpf Urine Bacteria 4+ H (Negative) Diagnostic Findings CT OF THE HEAD WITHOUT CONTRAST CLINICAL HISTORY: Fall. COMPARISON STUDY: Head CT May 14, 2022 and MRI of the brain October 20, 2021. CT DOSE: 691.05 mGy.cm TECHNIQUE: Helical axial images of the head were obtained without IV contrast. Automated exposure control was utilized for the study. A dose lowering technique was utilized adhering to the principles of ALARA. FINDINGS: No acute intracranial hemorrhage, midline shift or mass effect is present. Atrophy is again noted. White matter hypodensity suggests small vessel disease. The appearance of the brain is unchanged. The ventricular system is unremarkable. The basal cisterns are patent. No extra-axial collections are present. There are no findings to suggest acute dural sinus thrombosis or acute territorial infarct. No significant calvarial abnormalities are present. Visualized portions of the sinuses and mastoid air cells are clear. IMPRESSION: 1. No acute intracranial findings. No change in appearance of the brain. 2. No acute calvarial fracture. XR chest 1V portable CLINICAL HISTORY: weakness COMPARISON STUDY: Chest radiograph May 14, 2022. Chest CT August 05, 2020. FINDINGS: There is no pneumothorax or pleural effusion. No consolidation is identified. There is no evidence for pulmonary edema. Cardiomediastinal silhouette is stable. Cardiomegaly is unchanged. There are median sternotomy wires and mediastinal surgical clips. IMPRESSION: No acute cardiopulmonary findings. No change in appearance of the chest. Medications Administered ER medications given: Normal saline 1 L bolus Cefepime 2 g IV ECG Indication: other Rate (beats per minute): 86 Rhythm: sinus with SA Findings: + left axis deviation Comparison ECG Date: from (May 14, 2022) Change: no significant change Code Status & VTE Plan Code Status Full VTE Prophylaxis Plan VTE Prophylaxis will be ordered: Yes PG Care Time/CCT Total # of Minutes Spent Total Time Spent with Patient: Total time spent is greater than 50% in coordination of care (as documented) at patient's floor/unit and/or counseling patient: Coding Level of Care Code 48645 INT INP/OBS CARE 2/55MIN Diagnoses Gross hematuria R31.0 Complicated urinary tract infection N39.0 Hyponatremia E87.1 Memory loss or impairment R41.3 Urinary urgency R39.15 History of stroke Z86.73
[2022-08-03] MEDS ORDERED: ONDANSETRON INJ 2 MG/ML 2 ML VIAL IV PRN (21:39)
[2022-08-03] MEDS ORDERED: ACETAMINOPHEN 325 MG TAB PO PRN (21:39)
[2022-08-04] MEDS: CEFEPIME 2,000 MG in SYRINGE 0 ML IV SCH ×3 (02:09→17:31)
[2022-08-04 08:01] LABS: Basophils # (auto) 0.09 K/uL (0-0.2); Basophils % (auto) 0.5 %; Eosinophils # (auto) 0.07 K/uL (0-0.50); Eosinophils % (auto) 0.4 %; Hematocrit (blood only) 38.9 % (42.0-52.0); Immature Granulocytes # (auto) 0.12 K/uL (0.01-0.20); Immature Granulocytes % (auto) 0.6 %; Lymphocytes # (auto) 1.58 K/uL (1.2-3.4); Lymphocytes % (auto) 8.4 %; Mean Corpuscular Hemoglobin 31.7 pg (25.0-34.0); Mean Corpuscular Volume 88.2 fL (80.0-100.0); Mean Platelet Volume 10.2 fL (9.4-12.4); Monocytes # (auto) 1.64 K/uL (0.11-0.59); Monocytes % (auto) 8.7 %; Neutrophils # (auto) 15.39 K/uL (1.40-6.50); Neutrophils % (auto) 81.4 %; Platelet Count 133 K/uL (130-400); RDW Coefficient of Variation 13.2 % (11.5-14.5); RDW Standard Deviation 42.6 fL (36.4-46.3); Red Blood Count 4.41 M/uL (4.70-6.10); White Blood Count 18.89 K/ul (4.8-10.8)
[2022-08-04 08:18] LABS: BUN Creatinine Ratio 16.2 (10-20); Calcium 8.9 mg/dl (8.5-10.1); Creatinine Clr Calc Pharmacy 83.4 ml/min; Est GFR (African American) 100.3 ml/min; Est GFR (Non-African American) 86.5 ml/min; Potassium 3.8 mmol/L (3.5-5.1)
[2022-08-04] MEDS: FOLIC ACID 1 MG TAB PO SCH (09:11)
[2022-08-04] MEDS: PSYLLIUM or GUAR GUM FIBER POWDER PACKET PO SCH (09:12)
--- NOTE | 2022-08-04 09:23 | CT Scan Report ---
ABDOMEN AND PELVIS CT WITHOUT CONTRAST CT DOSE: 290.56 mGy.cm HISTORY: gross hematuria TECHNIQUE: Multiaxial CT images of the abdomen and pelvis were performed without contrast. A dose lo wering technique was utilized adhering to the principles of ALARA. COMPARISON STUDY: Abdomen and pelvis CT 10/17/2021. FINDINGS: Patchy densities within the lung bases posteriorly favor mild dependent change. The heart r emains enlarged. An aortic valve prosthesis is again noted. Mild motion artifact. No pneumoperitoneum . No pneumatosis. No acute fractures identified. There are poststernotomy changes. There are few smal l gallstones. No gallbladder wall thickening. The unenhanced liver, pancreas, spleen, adrenal glands are unremarkable. No renal stones or hydronephrosis. Stable 3 cm right renal cyst. There is mild bila teral perinephric edema. There is bladder wall thickening with surrounding edema/inflammatory change. The bladder wall thickening is most pronounced posteriorly. Small foci of gas within the bladder lum en are noted. This could be due to recent catheterization. Punctate calcifications are again noted wi thin the bladder posteriorly. These remain unchanged. Suboptimal evaluation for bowel pathology due t o the lack of intravenous and oral contrast. However, there is no definite bowel wall thickening or o bstruction. IMPRESSION: 1. Marked bladder wall thickening with adjacent fat stranding/edema. This favors a cystitis. There is a small amount of gas within the bladder which is nonspecific but could be due to recent catheteriza tion. 2. Mild bilateral perinephric edema/fat stranding which is new from the prior study. This could repre sent a superimposed pyelonephritis. Recommend correlation with urinalysis. 3. No bowel wall thickening or obstruction. 4. Additional findings as described above. ACT 112: Negative or not required by law. Electronically signed by: Aldair Garland M.D. 08/04/2022 9:21 AM
--- NOTE | 2022-08-04 10:46 | Electrocardiogram Report ---
Test Reason : Blood Pressure : / mmHG Vent. Rate : 086 BPM Atrial Rate : 086 BPM P-R Int : 184 ms QRS Dur : 104 ms QT Int : 366 ms P-R-T Axes : 062 -56 085 degrees QTc Int : 437 ms Normal sinus rhythm with sinus arrhythmia Premature atrial complexes Left axis deviation Left ventricular hypertrophy with repolarization abnormality Cannot rule out Septal infarct (cited on or before 16-OCT-2020) Abnormal ECG When compared with ECG of 14-MAY-2022 15:14, Questionable change in QRS duration Confirmed by Vikas Lynn ([id number]) on 08/04/2022 10:45:58 AM Referred By: REFERRED SELF Confirmed By:Vikas Lynn
--- NOTE | 2022-08-04 13:15 | Hospitalist Progress Note ---
Date of Service August 04, 2022 Assessment & Plan (1) Gross hematuria: Plan: Now resolved, urine has cleared up Resume aspirin. No chemical VTE prophylaxis. CT abdomen pelvis without contrast was normal Consult urology (2) Complicated urinary tract infection: Plan: Suspected Cefepime 2 g IV every 8 hourly Follow-up blood and urine cultures (3) Hyponatremia: Plan: Normal saline given in the ER. Repeat with AM labs (4) Memory loss or impairment: Plan: Monitor for sundowning and delirium (5) Urinary urgency: Plan: Continue mirabegron (6) History of stroke: Plan: Restart aspirin when able. No new lateralizing deficit. Left eye lid dropping when he gets tired reportedly due to this. Plan VTE Prophylaxis - chemical contraindicated in setting of hematuria Diet - regular Disposition - observation status to med/surg Patient and daughter request condom catheter upon discharge on account of his incontinence Admission and Anticipated Discharge Date Admission Date: August 03, 2022 Subjective patient seen and examined, daughter by the bedside Review of Systems Review of Systems: All systems reviewed are negative, apart from the ones contained in the history. Physical Exam Physical Exam: The patient is awake, alert and oriented 3, well developed and well nourished, normocephalic and atraumatic, lying in bed and in no acute distress. HEENT--PERRL, EOMI, mucous membranes and oropharynx mildly dry Neck--supple. No JVD. No bruits. Thyroid normal, trachea midline, no adenopathy. Heart--normal S1 and S2. No murmurs, rubs or gallops. Lungs--clear bilaterally, no respiratory distress, no accessory muscle use. Abdomen--normal bowel sounds and soft. Mild epigastric and left sided abdominal pain Extremities--no cyanosis or clubbing. No edema. Dermatologic--normal skin turgor, normal color, no abnormal lymph nodes, no rash. Neurologic--cranial nerves II through XII grossly intact. Rheumatologic--normal range of motion. Psychiatric--normal affect. Results & Data Results & Data ([facility]) Vital Signs (Past 12 Hours) Vital Signs Temp Pulse Resp BP Pulse Ox O2 Del Method 08/04/22 08:00 Room Air 08/04/22 07:55 97.9 F 70 18 132/74 93 Room Air PG Care Time/CCT Total # of Minutes Spent Total Time Spent with Patient: Total time spent is greater than 50% in coordination of care (as documented) at patient's floor/unit and/or counseling patient: Coding Level of Care Code 85569 SUB INP/OBS CARE 2/35MIN Diagnoses Gross hematuria R31.0 Complicated urinary tract infection N39.0 Hyponatremia E87.1 Memory loss or impairment R41.3 Urinary urgency R39.15 History of stroke Z86.73 Time Spent (min) 35
--- NOTE | 2022-08-04 17:08 | Urology Consultation ---
Date of Consultation August 04, 2022 Assessment & Plan (1) Gross hematuria: (2) Complicated urinary tract infection: (3) Hyponatremia: (4) Memory loss or impairment: (5) Urinary urgency: (6) History of stroke: Plan Patient with gross hematuria. Had undergone a urologic procedure with urodynamics at [place]. Patient has been following with them after following with Dr. Ayoub for worsening lower urinary tract issues. Does have history of stroke. Has had considerable issues. Hematuria has been moderate at times. Has had UTI-like symptoms. White count is significantly elevated to 18.89. Creatinine was 0.74. Patient had a PSA done last year which was 1.6. Most recently had COVID test which was negative. Patient's imaging has been reviewed. Had CT scan done on the . Has shown signs of likely pyelonephritis with considerable bladder wall thickening. Has perinephric stranding. This was reviewed interpreted by myself. Patient is currently tolerating urgency and frequency. Urine has been improving over time. Discussed continued conservative measures with hydration and monitoring. Patient is likely going to require antibiotics for treatment of likely pyelonephritis. Will none plan to monitor and continue with supportive care. Patient's complicated medical and surgical history was reviewed and summarized above. All imaging was reviewed interpreted by myself. Recent labs were also reviewed as well as vitals. We will plan to monitor over time with plans to monitor for resolution of issues. Will likely need follow-up and as well as follow-up with [place] after the urodynamics. We will plan to continue to monitor. If patient worsens or develops considerable obstructive issues may need to consider further options however at this point we will plan to continue with supportive care. Patient currently has a condom catheter and urine within the bag has a mildly red tinge to it. The urine in the tubing is completely clear and yellow. Did discuss with patient's extensively as patient has had a considerable exacerbation of his baseline dementia issues. Has had a number of TIAs over the last year. We will plan to continue to monitor closely and plan for follow-up. Does have plan for likely cystoscopy in [place] at some point. We will await resolution of issues. We will likely need approximately 1 to 2 weeks of antibiotics to completely clear likely urinary infection. We will monitor for recurrence of bleeding and other issues. History of Present Illness Attending Physician: Amadou Law MD History of Present Illness Consult for urinary issues with hematuria. Patient has mild to moderate discomfort in pelvis and groin going to back and side in waves. Is dealing with acute illness likely UTI. Has been having some electrolyte abnormality. Had recently had a urodynamic study down in [place]. Was undergoing work-up for considerable issues with lower urinary tract symptoms with urgency and poor control. Has been dealing with worsening illness. Has been deconditioned from this. Has decreased mobility significantly with acute issues. Is still able to void. Has had some urinary issues in the pastPreviously and follows with Dr. Ayoub with our urology group. Had been referred to [place] due to ongoing issues without resolution of symptoms. . No severe nausea or vomiting. Currently no fevers. No significant family history of malignancy. Allergies Allergy/AdvReac Type Severity Reaction Status Date / Time codeine AdvReac Intermediate GI SYMPTOMS Verified 08/03/22 19:13 Opioids - Morphine Analogues AdvReac Intermediate Vomiting Verified 08/03/22 21:41 Opioids-Meperidine and AdvReac Intermediate Vomiting Verified 08/03/22 21:41 Related Opioids-Methadone and Related AdvReac Intermediate Vomiting Verified 08/03/22 21:41 oxycodone [From Percocet] AdvReac Intermediate n/v Verified 08/03/22 19:13 Home Medications Medication Instructions Recorded Confirmed Type aspirin 81 mg tablet,delayed 81 mg PO QPM 11/05/18 08/03/22 History release (Julian Low Dose Aspirin) multivitamin 1 tab PO QAM 08/05/20 08/03/22 History cholecalciferol (vitamin D3) 25 25 mcg PO QAM 01/29/21 08/03/22 History mcg (1,000 unit) capsule acetaminophen 325 mg tablet 650 mg PO DIRECTED PRN Fever Or 01/31/22 08/03/22 History Pain psyllium seed (sugar) oral powder 1 tbsp PO DAILY 04/24/22 08/03/22 History (Metamucil (sugar) oral powder) folic acid 1 mg tablet 1 mg PO DAILY #90 tabs 07/15/22 08/03/22 Rx mirabegron 25 mg tablet,extended 25 mg PO HS 08/03/22 08/03/22 History release 24 hr Patient History Medical History Aneurysm of aortic arch Cerebral infarction, unspecified History of anesthesia reaction WITH HERNIA SURGERY ([place]) HAD TROUBLE WAKING UP History of bicuspid aortic valve History of stroke 2012 - RESIDUAL: STABILITY ISSUE History of TIA (transient ischemic attack) SEPTEMBER 14, 2018 - (USUALLY TIA OCCURS 1X PER YR/STARTED 5 YR AGO)/DR FARRELL Lyme disease Seizure X1 OR 2 - WHEN TX FOR STROKE IN 2012/ DR FARRELL Surgical History H/O aortic aneurysm repair H/O aortic valve replacement 2013 - AND BICUSPID VALVE REPLACED AT SAME TIME PER PT REPORT /"OPEN HEART" 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 History of appendectomy (03/16/13) History of colonoscopy History of hernia surgery X2 History of repair of right rotator cuff Family History Mother , age 70 of lung cancer Lung cancer COPD (chronic obstructive pulmonary disease) Father , age 91 of prostate cancer Prostate cancer Coronary heart disease Myocardial infarction Family/Other Breast cancer Cancer Other Heart disease No family history of adverse response to anesthesia No family history of bleeding disorder Social History Smoking Status: Never smoker Second Hand Exposure: No; Do You Dip or Chew Tobacco: No; Tobacco Cessation Education Requested by Patient: No Hx Alcohol Use: Yes Alcohol type: beer Alcohol Intake Frequency Comment: One beer per week Hx Substance Use: No Preferred Language: Cambodian Communication Ability: Effective Visual Impairment: No Limitations Supervisor Dry Paste Required: No Beliefs That Will Affect Care: None marital status: Current Living Situation: Spouse current occupational status: retired Other Information That Helps Us Care for You: No Feels Safe at Home: Yes Safety Concerns: Feels Safe At This Time Assistive Devices: Walker Assistive Devices Comment: Unsure if pt has glasses at home, he could not remember Review of Systems Review of Systems: All systems reviewed & are unremarkable except as noted in HPI & below Physical Exam Physical Exam: General: Altered mental status, exacerbation of baseline dementia. Pleasantly confused without agitation. No acute distress. HEENT: Normocephalic Atraumatic. Inspection normal. Cranial Nerves 2-12 Grossly intact. Nares are clear. Neck is supple. Normal inspection of face. Normal inspection of neck. Neurologic: No deficits on inspection. Baseline for motor function and sensory. Psychologic: Exacerbation of baseline issues. Respiratory: Nonlabored. No use of accessory muscles. No tachypnea or dyspnea. Cardiovascular: No tachycardia Skin: [place] and Dry. No rashes or visible lesions. Extremities:Decreased mobility. Abdomen: Soft mildly-distended. No rebound or guarding. : Condom catheter in place draining clear yellow urine. Mild red tinge to urine in bag Results & Data ([facility]) Vital Signs (Past 12 Hours) Vital Signs Temp Pulse Resp BP Pulse Ox O2 Del Method 08/04/22 16:05 37.0 C 80 16 134/73 93 Room Air 08/04/22 08:00 Room Air 08/04/22 07:55 36.6 C 70 18 132/74 93 Room Air PG Care Time/CCT Total # of Minutes Spent Total Time Spent with Patient: Total time spent is greater than 50% in coordination of care (as documented) at patient's floor/unit and/or counseling patient: Coding Level of Care Code 24975 INT INP/OBS CARE 3/75MIN Diagnoses Gross hematuria R31.0 Complicated urinary tract infection N39.0 Hyponatremia E87.1 Memory loss or impairment R41.3 Urinary urgency R39.15 History of stroke Z86.73
[2022-08-04] MEDS ORDERED: MIRABEGRON ER 25 MG TAB PO SCH (21:00)
[2022-08-05] MEDS ORDERED: haloperidoL 1 MG TAB PO PRN (00:16)
[2022-08-05] MEDS: CEFEPIME 2,000 MG in SYRINGE 0 ML IV SCH ×2 (03:29→08:38)
[2022-08-05 07:08] LABS: Hematocrit (blood only) 37.5 % (42.0-52.0); Hemoglobin 13.6 g/dl (14.0-18.0); Mean Corpuscular Hemoglobin 32.2 pg (25.0-34.0); Mean Corpuscular Hgb Conc 36.3 g/dL (32.0-36.0); Mean Corpuscular Volume 88.7 fL (80.0-100.0); Mean Platelet Volume 10.1 fL (9.4-12.4); Platelet Count 134 K/uL (130-400); RDW Coefficient of Variation 13.2 % (11.5-14.5); RDW Standard Deviation 43.1 fL (36.4-46.3); Red Blood Count 4.23 M/uL (4.70-6.10); White Blood Count 12.53 K/ul (4.8-10.8)
[2022-08-05 07:21] LABS: BUN Creatinine Ratio 15.1 (10-20); Calcium 8.8 mg/dl (8.5-10.1); Creatinine Clr Calc Pharmacy 71.7 ml/min; Est GFR (African American) 94.3 ml/min; Est GFR (Non-African American) 81.3 ml/min; Potassium 3.4 mmol/L (3.5-5.1)
[2022-08-05] MEDS: FOLIC ACID 1 MG TAB PO SCH (08:33)
[2022-08-05] MEDS: PSYLLIUM or GUAR GUM FIBER POWDER PACKET PO SCH (08:33)
--- NOTE | 2022-08-05 09:07 | Urology Progress Note ---
Date of Service August 05, 2022 Assessment & Plan (1) Gross hematuria: (2) Complicated urinary tract infection: Plan: Follow-up of gross hematuria. Patient afebrile and hemodynamically stable. Labs reviewedcreatinine 0.86, WBC improved to 12.53, Hgb 13.6 - continue to trend labs. Urine culture 08/03/2022 (prelim) showing E. coli, pansensitive. Blood cultures no growth x24 hours. Patient on IV cefepime - follow-up cultures and narrow per sensitivity data when finalized. Patient's hematuria has cleared. Condom catheter is draining clear yellow urine. Continue to monitor. No acute intervention indicated at this time. Continue antibiotics and supportive care. Transition to PO antibiotics upon discharge likely for total of 10-14 days. Patient's daughter noticed a possible rash/dermatitis on chest - alerted primary team for further evaluation. Patient is pending cystoscopy and further work-up with [facility]. Continue follow-up with [facility]. will follow peripherally. Contact us with any further questions or concerns. Admission and Anticipated Discharge Date Admission Date: August 03, 2022 Subjective Patient seen and examined at bedside this AM, daughter at bedside. He denies abdominal, suprapubic or flank pain. Condom catheter intact and draining clear yellow urine. Tolerating p.o. diet, no nausea or vomiting. No fever or chills. Patient's daughter notes some redness/possible rash on patient's right upper chest. Per daughter, patient's cognition is not yet back to baseline. Review of Systems Constitutional: as per Subjective / HPI Gastrointestinal: as per Subjective / HPI Genitourinary: + as per Subjective / HPI Physical Exam Constitutional: well developed and well nourished; no acute distress Respiratory: normal respiratory effort; no respiratory distress and no labored breathing Cardiovascular: Extremities: no pedal edema Gastrointestinal (Abdomen): Inspection/Auscultation: abdomen normal to inspection; abdomen not distended Percussion/Palpation: abdomen soft; abdomen nontender Skin: + dry skin some small erythematous patches on right upper chest Neurologic: moves all extremities and awake Psychiatric: Orientation: alert and oriented to person Genitourinary: Condom catheter patent and draining clear yellow urine Results & Data ([facility]) Vital Signs (Past 12 Hours) Vital Signs Temp Pulse Resp BP Pulse Ox O2 Del Method 08/05/22 07:36 36.7 C 76 16 148/81 H 94 Room Air 08/04/22 21:55 Room Air PG Care Time/CCT Total # of Minutes Spent Total Time Spent with Patient: Total time spent is greater than 50% in coordination of care (as documented) at patient's floor/unit and/or counseling patient: Coding Level of Care Code 43582 SUB INP/OBS CARE 1/25MIN Diagnoses Gross hematuria R31.0 Complicated urinary tract infection N39.0
--- NOTE | 2022-08-05 15:50 | Discharge Summary ---
Date of Service August 05, 2022 Admission HPI Per Admitting Provider Keith Lopez is an 81-year-old male with chronic urinary incontinence who presents to the ER with hematuria and weakness. He recently had urodynamic testing performed by urology due to chronic incontinence on (2 days ago). He usually takes an aspirin but is on no other anticoagulation and reportedly has missed his aspirin doses for the last week but cannot give me a reason why. He reports weakness started after urodynamics testing in [place] but progressively got worse. Gross hematuria only started today with associated suprapubic pain and dysuria. Lots of urinary frequency last night with going to the toilet multiple times. He has baseline mild cognitive impairment but his mobility is full without aids. Of note he received no fluoroquinolones with recent testing. He denies any fever, chills or flank pain. He has never had gross hematuria before. Principal Diagnosis Hematuria, UTI Discharge Exam The patient is awake, alert and oriented 3, well developed and well nourished, normocephalic and atraumatic, lying in bed and in no acute distress. HEENT--PERRL, EOMI, mucous membranes and oropharynx mildly dry Neck--supple. No JVD. No bruits. Thyroid normal, trachea midline, no adenopathy. Heart--normal S1 and S2. No murmurs, rubs or gallops. Lungs--clear bilaterally, no respiratory distress, no accessory muscle use. Abdomen--normal bowel sounds and soft. Mild epigastric and left sided abdominal pain Extremities--no cyanosis or clubbing. No edema. Dermatologic--normal skin turgor, normal color, no abnormal lymph nodes, no rash. Neurologic--cranial nerves II through XII grossly intact. Rheumatologic--normal range of motion. Psychiatric--normal affect. Discharge Data Allergies Allergy/AdvReac Type Severity Reaction Status Date / Time codeine AdvReac Intermediate GI SYMPTOMS Verified 08/03/22 19:13 Opioids - Morphine Analogues AdvReac Intermediate Vomiting Verified 08/03/22 21:41 Opioids-Meperidine and AdvReac Intermediate Vomiting Verified 08/03/22 21:41 Related Opioids-Methadone and Related AdvReac Intermediate Vomiting Verified 08/03/22 21:41 oxycodone [From Percocet] AdvReac Intermediate n/v Verified 08/03/22 19:13 Consultations 08/03/22 18:36 ED Decision to Admit Stat 08/04/22 06:42 Consult Urology Routine Ordered Studies 08/03/22 16:53 CT head/brain wo con Stat 08/03/22 19:11 CT abd pelvis wo con Urgent Hospital Course (1) Gross hematuria: Now resolved, urine has cleared up Resume aspirin. No chemical VTE prophylaxis. CT abdomen pelvis without contrast was normal Consult urology (2) Complicated urinary tract infection: Suspected Cefepime 2 g IV every 8 hourly Follow-up blood and urine cultures no growth Discharge on PO cephalexin 500mg BID for 5 days (3) Hyponatremia: Normal saline given in the ER. Repeat with AM labs (4) Memory loss or impairment: Monitor for sundowning and delirium (5) Urinary urgency: Continue mirabegron (6) History of stroke: Restart aspirin when able. No new lateralizing deficit. Left eye lid dropping when he gets tired reportedly due to this. Plan d/c home Total Time Total Time Spent Total Time Spent (In Minutes): 35 Discharge Plan Discharge Items Patient Disposition: Home - Self-Care Reason For Visit: COMPLICATED UTI Discharge Diagnosis: UTI, hematuria Activity: Resume your previous activity Non-emergency contact: Primary Care Provider and Urologist Call non-emergency contact if: you have any medication questions Follow-up/Referrals: Keith Smith MD [Primary Care Provider] - 08/26/22 2:00 pm Diet: Regular Addtl Attending Provider Instructions: Please make appointment to follow up with your urologist and PCP Pending Studies at Discharge: No Stand-Alone Forms: [employer], Smoking Cessation Medications and DC Order Prescriptions: New cephalexin 500 mg capsule 500 mg PO BID 5 Days Qty: 10 0RF Continued folic acid 1 mg tablet 1 mg PO DAILY Qty: 90 3RF cholecalciferol (vitamin D3) 25 mcg (1,000 unit) capsule 25 mcg PO QAM aspirin [Julian Low Dose Aspirin] 81 mg Tablet,Delayed Release (Dr/Ec) 81 mg PO QPM multivitamin Tablet 1 tab PO QAM acetaminophen 325 mg Tablet 650 mg PO DIRECTED PRN (Reason: Fever Or Pain) Metamucil (sugar) Powder 1 tbsp PO DAILY mirabegron 25 mg tablet extended release 24 hr 25 mg PO HS Discharge Orders: Discharge Order (Routine); Ordered 08/05/22 Ordered By: Amadou Law Admission Data Admit Date/Time: 08/03/22 18:47 Attending Provider: Amadou Law Admit Provider: Lalit Sutton Primary Care Provider: Keith Smith Other Providers: Lalit Sutton ; Ga Gallegos ; [facility] Fax Other Interventions: Discharge Summary Assessment (RN) Last Done: 08/05/22 15:01 Coding Level of Care Code HOSP INP/OBS DISCH >30 MIN Diagnoses Gross hematuria R31.0 Complicated urinary tract infection N39.0 Hyponatremia E87.1 Memory loss or impairment R41.3 Urinary urgency R39.15 History of stroke Z86.73 Time Spent (min) 35
== END 2022-08-05 16:00 | disposition home health service (06) ==
LOC: ED 16:31 → 3N 16:31 → SUATTDRO 18:47 → 3N 21:10

== ENCOUNTER 2022-10-13 14:19 | Inpatient (IN) ==
[2022-10-13] MEDS ORDERED: MoRPHine SULFATE 2 MG/ML CARP IV PRN (14:37)
[2022-10-13] MEDS ORDERED: ACETAMINOPHEN 1,000 MG/100 ML VIAL IV STA (14:37)
[2022-10-13] MEDS ORDERED: MoRPHine SULFATE 4 MG/ML 1 ML CARP\\VIAL IV PRN (14:37)
--- NOTE | 2022-10-13 14:43 | Emergency Department Note ---
Impression & Plan Fracture of femoral neck, left, closed, Dementia, Fall from standing, Ambulatory dysfunction ED Provider Note NAME: BRODERICK LOPEZ AGE: 82 SEX: M ARRIVES VIA: Ambulance INFORMANT: Patient ED PROVIDER(S): Naga Andersen MD CHIEF COMPLAINT: Fall, hip pain PLAN: Disposition: Admit MEDICAL DECISION MAKING: The patient is an 82-year-old gentleman with a past medical history of BPH with chronic indwelling Gamboa catheter, mixed dementia, encephalopathy, history of T IA, hyperlipidemia, FELIX, polyneuropathy who presents to the emergency department via EMS for evaluation after he was witnessed to have a mechanical fall when he was outside where he was sweeping the driveway and his went inside to get something and found him on the ground when she returned. She reports that he has baseline ambulatory dysfunction and is not supposed to walk without his walker and so suspects that he likely lost his balance. There was report of possible head strike but there is no evidence of head trauma. EMS had reported that family believed he was altered from his baseline where he was speaking more softly and perhaps confused. The patient was complaining of left hip pain. The patient's did arrive to emergency department and confirms that he does have a history of dementia and is currently at his baseline. On arrival to the emergency department the patient is alert and oriented to self, mildly confused to situation follow commands without difficulty. He has limited range of motion of left lower extremity secondary to pain. He has generalized weakness throughout otherwise without focal deficits. His head is atraumatic. He has no midline CTL spine tenderness palpation or step-offs. He has tenderness of the left hip with limited range of motion secondary to pain. Pelvis is otherwise stable. EKG without overt acute ischemia. CXR negative for acute cardiopulmonary process. WBC, H/H and platelets within normal limits. Chemistry without metabolic acidosis. Sodium 131 and electrolytes otherwise unremarkable. LFTs unremarkable. High-sensitivity troponin 6.8, within normal limits. CPK within normal limits. UA without convincing evidence of infection. COVID-19 RNA, NAAT test was negative. CT of the head negative for ICH, ischemia. CT CTL spine negative for acute traumatic injuries. CT of the chest and abdomen pelvis performed and traumatic findings in the mid to left impacted femoral neck fracture, which was also appreciated on x-ray. Findings reviewed with the patient and at the bedside. Patient's agrees with plan for admission for further management. Case was discussed with Dr. Lorenzana, orthopedic surgery on-call for [place] [facility] will update [facility] orthopedics regarding pending consultation as patient has followed with [facility] orthopedics for his rotator cuff. Case was d/[place], [facility] [place] who will evaluate the patient for admission. Triage Nursing notes reviewed and agree them. Prior/outside medical records reviewed Vital Signs: reviewed Differential diagnosis: Fracture, dislocation, contusion, intra-abdominal, pneumothorax, intrathoracic, intracranial, neurologic, compartment syndrome, rhabdomyolysis, as well as other pathologies. ER treatment provided: See below. Diagnostics interpreted by me: ECG: Sinus rhythm, first-degree block, 77 bpm, no ectopy, no overt ST elevation or depression, QTc 416, QRS 86 Cardiac Monitoring: An order for continuous cardiac monitoring was placed and demonstrated Sinus rhythm, first-degree block, 77 bpm, no ectopy. Laboratory studies: See below Imaging studies: See below Consultation(s): Dr. Lorenzana, [facility] on-call for [place] [facility]. Case was d/[place] Dr. Sutton [facility] [place] who will evaluate the patient for admission. HPI: The patient is an 82-year-old gentleman with a past medical history of BPH with chronic indwelling Gamboa catheter, mixed dementia, encephalopathy, history of TIA, hyperlipidemia, FELIX, polyneuropathy who presents to the emergency department via EMS for evaluation after he was witnessed to have a mechanical fall when he was outside where he was sweeping the driveway and his went inside to get something and found him on the ground when she returned. She reports that he has baseline ambulatory dysfunction and is not supposed to walk without his walker and so suspects that he likely lost his balance. There was report of possible head strike but there is no evidence of head trauma. EMS had reported that family believed he was altered from his baseline where he was speaking more softly and perhaps confused. The patient was complaining of left hip pain. The patient's did arrive to emergency department and confirms that he does have a history of dementia and is currently at his baseline. ROS: See above HPI for pertinent positives & negatives. A total of 10 systems reviewed and were otherwise negative. VITALS:See Below PHYSICAL EXAMINATION: GENERAL: Awake, alert, uncomfortable-appearing, in no distress HENT: Normocephalic, atraumatic. Oropharynx with dry mucous membranes and otherwise unremarkable. EYES: Normal conjunctiva. Sclera non-icteric. NECK: Supple. No nuchal rigidity. FROM. No JVD. RESPIRATORY: Clear to auscultation. CARDIAC: Regular rate, normal rhythm. Extremities warm and well perfused. Pulses equal. ABDOMEN: Soft, non-distended. No tenderness to palpation. No rebound or guarding. No masses. RECTAL: Deferred. MUSCULOSKELETAL: Chest examination reveals no tenderness. The back is symmetrical on inspection without obvious abnormality. There is no CVA tenderness to palpation. Mild swelling and tenderness of the left lateral hip. Range of motion limited secondary to pain. LOWER EXTREMITIES: Calves are equal size bilaterally and non-tender. No edema. No discoloration. NEURO: No focal sensory or motor deficits noted. Alert and oriented to self, mildly confused to situation follow commands without difficulty. SKIN: No rash or jaundice noted. Naga Andersen MD Past Med/Surg History Medical History Aneurysm of aortic arch Cerebral infarction, unspecified Gross hematuria History of anesthesia reaction WITH HERNIA SURGERY ([place]) HAD TROUBLE WAKING UP History of bicuspid aortic valve History of stroke 2012 - RESIDUAL: STABILITY ISSUE History of TIA (transient ischemic attack) SEPTEMBER 14, 2018 - (USUALLY TIA OCCURS 1X PER YR/STARTED 5 YR AGO)/DR FARRELL Lyme disease Seizure X1 OR 2 - WHEN TX FOR STROKE IN 2012/ DR FARRELL Surgical History H/O aortic aneurysm repair H/O aortic valve replacement 2013 - AND BICUSPID VALVE REPLACED AT SAME TIME PER PT REPORT /"OPEN HEART" 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 History of appendectomy (03/16/13) History of colonoscopy History of hernia surgery X2 History of repair of right rotator cuff Family History Mother , age 70 of lung cancer Lung cancer COPD (chronic obstructive pulmonary disease) Father , age 91 of prostate cancer Prostate cancer Coronary heart disease Myocardial infarction Family/Other Breast cancer Cancer Other Heart disease No family history of adverse response to anesthesia No family history of bleeding disorder Social History Smoking Status: Never smoker Second Hand Exposure: No; Do You Dip or Chew Tobacco: No; Hx Alcohol Use: No Hx Substance Use: No Preferred Language: Estonian Communication Ability: Effective Communication Ability Comment: , Roxana Lopez, is POA. Visual Impairment: No Limitations Hearing Ability: Normal Buckle Strap Puncher Required: No Beliefs That Will Affect Care: None marital status: Current Living Situation: Spouse current occupational status: retired Other Information That Helps Us Care for You: No Feels Safe at Home: Yes Safety Concerns: Feels Safe At This Time Assistive Devices: None Allergies Allergies Allergy/AdvReac Type Severity Reaction Status Date / Time codeine AdvReac Intermediate GI SYMPTOMS Verified 10/13/22 15:22 Opioids - Morphine Analogues AdvReac Intermediate Vomiting Verified 10/13/22 15:22 Opioids-Meperidine and AdvReac Intermediate Vomiting Verified 10/13/22 15:22 Related Opioids-Methadone and Related AdvReac Intermediate Vomiting Verified 10/13/22 15:22 oxycodone [From Percocet] AdvReac Intermediate n/v Verified 10/13/22 15:22 Home Meds Home Medications Medication Instructions Recorded Confirmed cholecalciferol (vitamin D3) 50 50 mcg PO DAILY 10/13/22 10/13/22 mcg (2,000 unit) tablet (Vitamin D3) folic acid 1 mg tablet 1 mg PO DAILY 10/13/22 10/13/22 mirabegron 25 mg tablet,extended 25 mg PO DAILY 10/13/22 10/13/22 release 24 hr (Myrbetriq) djfmyyjt-tjl-qwrom acid 300 1 tab PO DAILY 10/13/22 10/13/22 mcg-lycopene 600 mcg-lutein 300 mcg tablet Results & Data (ED) Vital Signs Vital Signs - 24 hr 10/13/22 14:28 10/13/22 14:28 10/13/22 14:30 Temperature Temperature Source Pulse Rate 68 77 76 Pulse Rate from SpO2 Sensor 74 Respiratory Rate 16 20 Respiratory Effort / Characteristics Respiratory Depth Respiratory Pattern Blood Pressure Blood Pressure Mean Pulse Oximetry 94 Oxygen Delivery Method Sepsis Recent Fever Within 48 Hours Sepsis New/Unexplained Change in Mental Status Sepsis Action Taken by Nursing 10/13/22 14:33 10/13/22 14:33 10/13/22 14:45 Temperature Temperature Source Pulse Rate 70 73 Pulse Rate from SpO2 Sensor 74 73 Respiratory Rate 22 20 Respiratory Effort / Characteristics Respiratory Depth Respiratory Pattern Blood Pressure 200/121 H 189/99 H Blood Pressure Mean 147 129 Pulse Oximetry 94 93 Oxygen Delivery Method Sepsis Recent Fever Within 48 Hours Sepsis New/Unexplained Change in Mental Status Sepsis Action Taken by Nursing 10/13/22 15:04 10/13/22 13:57 10/13/22 13:57 Temperature 36.8 C Temperature Source Axillary Pulse Rate 75 82 Pulse Rate from SpO2 Sensor 75 Respiratory Rate 19 18 Respiratory Effort / Characteristics Non-Labored Spontaneous Respiratory Depth Normal Respiratory Pattern Regular Blood Pressure 190/110 H 200/121 H Blood Pressure Mean 136 147 Pulse Oximetry 93 96 96 Oxygen Delivery Method Room Air Room Air Sepsis Recent Fever Within 48 Hours No Sepsis New/Unexplained Change in Mental Status No Sepsis Action Taken by Nursing No Action Required 10/13/22 15:05 10/13/22 15:05 10/13/22 15:15 Temperature Temperature Source Pulse Rate 74 Pulse Rate from SpO2 Sensor 77 Respiratory Rate 18 Respiratory Effort / Characteristics Respiratory Depth Respiratory Pattern Blood Pressure 190/110 H 173/104 H Blood Pressure Mean 136 127 Pulse Oximetry 93 Oxygen Delivery Method Sepsis Recent Fever Within 48 Hours Sepsis New/Unexplained Change in Mental Status Sepsis Action Taken by Nursing 10/13/22 15:15 10/13/22 15:30 10/13/22 15:31 Temperature Temperature Source Pulse Rate 65 72 Pulse Rate from SpO2 Sensor 72 72 Respiratory Rate 15 18 Respiratory Effort / Characteristics Respiratory Depth Respiratory Pattern Blood Pressure 192/101 H Blood Pressure Mean 131 Pulse Oximetry 93 95 Oxygen Delivery Method Sepsis Recent Fever Within 48 Hours Sepsis New/Unexplained Change in Mental Status Sepsis Action Taken by Nursing 10/13/22 15:31 10/13/22 15:45 10/13/22 15:45 Temperature Temperature Source Pulse Rate 75 72 Pulse Rate from SpO2 Sensor 75 72 Respiratory Rate 18 18 Respiratory Effort / Characteristics Respiratory Depth Respiratory Pattern Blood Pressure 181/105 H Blood Pressure Mean 130 Pulse Oximetry 94 93 Oxygen Delivery Method Sepsis Recent Fever Within 48 Hours Sepsis New/Unexplained Change in Mental Status Sepsis Action Taken by Nursing 10/13/22 16:00 10/13/22 16:00 Temperature Temperature Source Pulse Rate 72 Pulse Rate from SpO2 Sensor 72 Respiratory Rate 15 Respiratory Effort / Characteristics Respiratory Depth Respiratory Pattern Blood Pressure 179/106 H Blood Pressure Mean 130 Pulse Oximetry 93 Oxygen Delivery Method Sepsis Recent Fever Within 48 Hours Sepsis New/Unexplained Change in Mental Status Sepsis Action Taken by Nursing Laboratory Data Attestation: I reviewed the patient's lab results. 10/13/22 14:37 10/13/22 14:37 Lab Results 10/13/22 10/13/22 10/13/22 Range/Units 14:34 14:37 14:37 WBC 8.11 (4.8-10.8) K/ul RBC 4.82 (4.70-6.10) M/uL Hgb 15.2 (14.0-18.0) g/dl POC Hgb (14.0-18.0) g/dl Hct 42.5 (42.0-52.0) % POC Hct (42-52) % MCV 88.2 (80.0-100.0) fL MCH 31.5 (25.0-34.0) pg MCHC 35.8 (32.0-36.0) g/dL RDW Std Deviation 44.2 (36.4-46.3) fL RDW Coeff of Stormy 13.7 (11.5-14.5) % Plt Count 147 (130-400) K/uL MPV 9.4 (9.4-12.4) fL Immature Gran % (Auto) 0.6 % Neut % (Auto) 70.3 % Lymph % (Auto) 18.0 % Faulk % (Auto) 8.4 % Eos % (Auto) 1.8 % Baso % (Auto) 0.9 % Neut # (Auto) 5.70 (1.40-6.50) K/uL Lymph # (Auto) 1.46 (1.2-3.4) K/uL Faulk # (Auto) 0.68 H (0.11-0.59) K/uL Eos # (Auto) 0.15 (0-0.50) K/uL Baso # (Auto) 0.07 (0-0.2) K/uL Immature Gran # (Auto) 0.05 (0.01-0.20) K/uL PT (9.0-12.0) Seconds INR (0.9-1.1) POC Sodium (135-144) mmol/L Sodium 131 L (136-145) mmol/L POC Potassium (3.3-5.0) mmol/L Potassium 4.2 (3.5-5.1) mmol/L POC Chloride (101-112) mmol/L Chloride 99 (98-107) mmol/L Carbon Dioxide 27 (21-32) mmol/L POC Total CO2 (24-31) mmol/L Anion Gap 5 (3-11) POC Anion Gap (16-25) mmol/L POC BUN (7-18) mg/dl BUN 13 (6-23) mg/dl Creatinine 0.82 (0.6-1.4) mg/dl POC Creatinine (0.6-1.3) mg/dl Est Cr Clr Drug Dosing Not Reportable Est GFR ( Amer) 95.4 ml/min Est GFR (Non-Af Amer) 82.4 ml/min BUN/Creatinine Ratio 15.9 (10-20) Glucose 92 (70-99(Fasting)) mg/dl POC Glucose (other) (70-99) mg/dl Calcium 9.5 (8.6-10.3) mg/dl POC Ioniz Calcium Kwasi (1.12-1.32) mmol/l Total Bilirubin 1.0 (0.2-1.0) mg/dl AST 24 (13-39) U/L ALT 24 (7-52) U/L Alkaline Phosphatase 71 (34-104) U/L Total Creatine Kinase 64 (30-223) U/L Troponin I High Sens 6.8 (0-20) pg/ml Total Protein 6.8 (6.0-8.3) gm/dl Albumin 4.1 (3.4-5.0) gm/dl Globulin 2.7 (2.5-4.0) gm/dl Albumin/Globulin Ratio 1.5 (0.9-2) Urine Color Urine Appearance (Clear) Urine pH (4.5-7.5) Ur Specific Shelby (1.000-1.030) Urine Protein (Negative) Urine Glucose (UA) (Negative) Urine Ketones (Negative) Urine Blood (Negative) Urine Nitrite (Negative) Urine Bilirubin (Negative) Urine Urobilinogen (Negative) Ur Leukocyte Esterase (Negative) SARS-CoV-2, RNA, NAAT (NEGATIVE) Blood Type O Positive Antibody Screen NEGATIVE 10/13/22 10/13/22 10/13/22 Range/Units 14:37 14:37 15:18 WBC (4.8-10.8) K/ul RBC (4.70-6.10) M/uL Hgb (14.0-18.0) g/dl POC Hgb 16.0 (14.0-18.0) g/dl Hct (42.0-52.0) % POC Hct 47 (42-52) % MCV (80.0-100.0) fL MCH (25.0-34.0) pg MCHC (32.0-36.0) g/dL RDW Std Deviation (36.4-46.3) fL RDW Coeff of Stormy (11.5-14.5) % Plt Count (130-400) K/uL MPV (9.4-12.4) fL Immature Gran % (Auto) % Neut % (Auto) % Lymph % (Auto) % Faulk % (Auto) % Eos % (Auto) % Baso % (Auto) % Neut # (Auto) (1.40-6.50) K/uL Lymph # (Auto) (1.2-3.4) K/uL Faulk # (Auto) (0.11-0.59) K/uL Eos # (Auto) (0-0.50) K/uL Baso # (Auto) (0-0.2) K/uL Immature Gran # (Auto) (0.01-0.20) K/uL PT 11.0 (9.0-12.0) Seconds INR 1.0 (0.9-1.1) POC Sodium 133 L (135-144) mmol/L Sodium (136-145) mmol/L POC Potassium 4.3 (3.3-5.0) mmol/L Potassium (3.5-5.1) mmol/L POC Chloride 97 L (101-112) mmol/L Chloride (98-107) mmol/L Carbon Dioxide (21-32) mmol/L POC Total CO2 25 (24-31) mmol/L Anion Gap (3-11) POC Anion Gap 17.0 (16-25) mmol/L POC BUN 12 (7-18) mg/dl BUN (6-23) mg/dl Creatinine (0.6-1.4) mg/dl POC Creatinine 0.8 (0.6-1.3) mg/dl Est Cr Clr Drug Dosing Est GFR ( Amer) ml/min Est GFR (Non-Af Amer) ml/min BUN/Creatinine Ratio (10-20) Glucose (70-99(Fasting)) mg/dl POC Glucose (other) 94 (70-99) mg/dl Calcium (8.6-10.3) mg/dl POC Ioniz Calcium Kwasi 1.21 (1.12-1.32) mmol/l Total Bilirubin (0.2-1.0) mg/dl AST (13-39) U/L ALT (7-52) U/L Alkaline Phosphatase (34-104) U/L Total Creatine Kinase (30-223) U/L Troponin I High Sens (0-20) pg/ml Total Protein (6.0-8.3) gm/dl Albumin (3.4-5.0) gm/dl Globulin (2.5-4.0) gm/dl Albumin/Globulin Ratio (0.9-2) Urine Color Urine Appearance (Clear) Urine pH (4.5-7.5) Ur Specific Shelby (1.000-1.030) Urine Protein (Negative) Urine Glucose (UA) (Negative) Urine Ketones (Negative) Urine Blood (Negative) Urine Nitrite (Negative) Urine Bilirubin (Negative) Urine Urobilinogen (Negative) Ur Leukocyte Esterase (Negative) SARS-CoV-2, RNA, NAAT NEGATIVE (NEGATIVE) Blood Type Antibody Screen 10/13/22 Range/Units 15:48 WBC (4.8-10.8) K/ul RBC (4.70-6.10) M/uL Hgb (14.0-18.0) g/dl POC Hgb (14.0-18.0) g/dl Hct (42.0-52.0) % POC Hct (42-52) % MCV (80.0-100.0) fL MCH (25.0-34.0) pg MCHC (32.0-36.0) g/dL RDW Std Deviation (36.4-46.3) fL RDW Coeff of Stormy (11.5-14.5) % Plt Count (130-400) K/uL MPV (9.4-12.4) fL Immature Gran % (Auto) % Neut % (Auto) % Lymph % (Auto) % Faulk % (Auto) % Eos % (Auto) % Baso % (Auto) % Neut # (Auto) (1.40-6.50) K/uL Lymph # (Auto) (1.2-3.4) K/uL Faulk # (Auto) (0.11-0.59) K/uL Eos # (Auto) (0-0.50) K/uL Baso # (Auto) (0-0.2) K/uL Immature Gran # (Auto) (0.01-0.20) K/uL PT (9.0-12.0) Seconds INR (0.9-1.1) POC Sodium (135-144) mmol/L Sodium (136-145) mmol/L POC Potassium (3.3-5.0) mmol/L Potassium (3.5-5.1) mmol/L POC Chloride (101-112) mmol/L Chloride (98-107) mmol/L Carbon Dioxide (21-32) mmol/L POC Total CO2 (24-31) mmol/L Anion Gap (3-11) POC Anion Gap (16-25) mmol/L POC BUN (7-18) mg/dl BUN (6-23) mg/dl Creatinine (0.6-1.4) mg/dl POC Creatinine (0.6-1.3) mg/dl Est Cr Clr Drug Dosing Est GFR ( Amer) ml/min Est GFR (Non-Af Amer) ml/min BUN/Creatinine Ratio (10-20) Glucose (70-99(Fasting)) mg/dl POC Glucose (other) (70-99) mg/dl Calcium (8.6-10.3) mg/dl POC Ioniz Calcium Kwasi (1.12-1.32) mmol/l Total Bilirubin (0.2-1.0) mg/dl AST (13-39) U/L ALT (7-52) U/L Alkaline Phosphatase (34-104) U/L Total Creatine Kinase (30-223) U/L Troponin I High Sens (0-20) pg/ml Total Protein (6.0-8.3) gm/dl Albumin (3.4-5.0) gm/dl Globulin (2.5-4.0) gm/dl Albumin/Globulin Ratio (0.9-2) Urine Color Yellow Urine Appearance Clear (Clear) Urine pH 7.5 (4.5-7.5) Ur Specific Shelby 1.024 (1.000-1.030) Urine Protein Negative (Negative) Urine Glucose (UA) Negative (Negative) Urine Ketones Negative (Negative) Urine Blood Negative (Negative) Urine Nitrite Negative (Negative) Urine Bilirubin Negative (Negative) Urine Urobilinogen Negative (Negative) Ur Leukocyte Esterase Negative (Negative) SARS-CoV-2, RNA, NAAT (NEGATIVE) Blood Type Antibody Screen Administered Medications Acetaminophen (Acetaminophen 325 Mg Tab) 650 mg PO Q6H BRENDA Stop: 11/12/22 19:59 Last Admin: 10/14/22 02:14 Dose: 650 mg Documented By: Admin: 10/13/22 20:15 Dose: 650 mg Documented By: MARY Morphine Sulfate (Morphine Sulfate 2 Mg/Ml Carp) 2 mg IV Q3H PRN PRN Reason: Pain(4,5,6,7,8,9,10+) & Pre PT Stop: 10/27/22 16:37 Last Admin: 10/13/22 22:28 Dose: 2 mg Documented By: MARY Senna/Docusate Sodium (Docusate Sodium/Senna 50/8.6mg Tab) 2 tab PO HS BRENDA Stop: 11/12/22 20:59 Last Admin: 10/13/22 20:14 Dose: 2 tab Documented By: MARY Discontinued Medications Sodium Chloride (Nss 1000ml) 1,000 mls @ 75 mls/hr IV .[id number] BRENDA Stop: 10/14/22 04:04 Last Infusion: 10/14/22 03:20 Dose: 0 mls/hr Documented By: Admin: 10/13/22 14:44 Dose: 75 mls/hr Documented By: ROBE Acetaminophen (Ofirmev) 1,000 mg in 100 mls @ 400 mls/hr IV NOW STA Stop: 10/13/22 14:51 Last Infusion: 10/13/22 15:29 Dose: 0 mls/hr Documented By: Admin: 10/13/22 14:43 Dose: 400 mls/hr Documented By: ROBE Ioversol (Optiray 320 100ml) 91 ml IV ONCE ONE Stop: 10/13/22 14:57 Last Admin: 10/13/22 14:58 Dose: 91 ml Documented By: NORMAN Morphine Sulfate (Morphine Sulfate 4 Mg/Ml 1 Ml Carp\\Vial) 2 mg IV Q2H PRN PRN Reason: Severe Pain (Rating 7,8,9,10) Stop: 10/27/22 14:36 Last Admin: 10/13/22 16:13 Dose: 2 mg Documented By: TARA Morphine Sulfate (Morphine Sulfate 2 Mg/Ml Carp) 1 mg IV Q2H PRN PRN Reason: Moderate Pain (Rating 3,4,5,6) Stop: 10/27/22 14:36 Last Admin: 10/13/22 14:46 Dose: 1 mg Documented By: ROBE Ondansetron HCl (Ondansetron Inj 2 Mg/Ml 2 Ml Vial) Confirm Administered Dose 4 mg .ROUTE .STK-MED ONE Stop: 10/13/22 14:46 Last Admin: 10/13/22 14:47 Dose: 4 mg Documented By: ROBE Ondansetron HCl (Ondansetron Inj 2 Mg/Ml 2 Ml Vial) 4 mg IV NOW STA Stop: 10/13/22 15:05 Last Admin: 10/13/22 15:05 Dose: Not Given Documented By: ROBE Imaging Data Radiologist's Impression: Chest X-Ray 10/13/22 14:30 XR chest 1V portable CLINICAL HISTORY: trauma, fall pain COMPARISON STUDY: Chest radiograph August 03, 2022. Chest CT performed earlier today. FINDINGS: There is no pneumothorax or pleural effusion. 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 Cardiomediastinal silhouette is stable. There is no lobar consolidation. The appearance of the chest has not sign ificantly changed. IMPRESSION: No acute cardiopulmonary findings. No significant change in appearance of the chest. ACT 112: Negative or not required by law. Electronically signed by: Los Gunn M.D. 10/13/2022 3:[address] 10/13/22 14:30 CT lumbar spine w con CLINICAL HISTORY: trauma, fall pain COMPARISON STUDY: Lumbar spine radiographs September 24, 2021. CT of the abdomen and pelvis August 03, 2022. TECHNIQUE: Axial images of the lumbar spine were obtained. Sagittal and coronal reconstructions were viewed. Automated exposure control was utilized for the study. A dose lowering technique was utilized adhering to the principles of ALARA. FINDINGS: Grade one anterolisthesis of L5 on S1 due to bilateral L5 pars defect is unchanged. There is no acute lumbar spine fracture. There is moderate multilevel degenerative disc disease and facet arthrosis within lumbar spine. No osseous lesions are noted. Mild rightward curvature of the lumbar spine is unchanged. IMPRESSION: 1. No acute lumbar spine fracture or subluxation. 2. No change in grade one anterolisthesis of L5 on S1 due to bilateral L5 pars defects. 3. Moderate multilevel degenerative changes within the lumbar spine. ACT 112: Negative or not required by law. Electronically signed by: Los Gunn M.D. 10/13/2022 3:45 PM Abdomen/Pelvis CT 10/13/22 14:31 CT OF THE ABDOMEN AND PELVIS WITH CONTRAST CLINICAL HISTORY: Trauma COMPARISON STUDY: CT of the abdomen and pelvis August 03, 2022. TECHNIQUE: Following IV administration of 91 mL of Optiray, axial images of the abdomen and pelvis were obtained from the lung bases to the proximal femurs. Images were reviewed in the axial, sagittal, and coronal planes. IV contrast was administered without complication. Automated exposure control was utilized for the study. A dose lowering technique was utilized adhering to the principles of ALARA. FINDINGS: No hemoperitoneum or pneumoperitoneum is present. There is no evidence for traumatic injury to the liver, spleen, adrenal glands, kidneys or pancreas. There are a few suspected renal cysts. There is no biliary or pancreatic ductal dilatation. The caliber and wall thickness of small and large bowel are normal. There is no free fluid. [place] balloon within the bladder is present. Gas within the bladder is well. Bladder wall thickening is noted, slightly decreased since prior exam. No acute lumbar spine fracture is noted. Note is made of an acute impacted subcapital left femoral neck fracture. Fracture is mildly angulated. No additional acute fractures are identified on this examination. Aortic valve replacement is incidentally noted. This is better depicted on the chest CT. A left lateral thigh contusion is present. IMPRESSION: 1. Acute impacted mildly angulated subcapital left femoral neck fracture. Fracture essentially nondisplaced. 2. No evidence for traumatic injury to the solid abdominal viscera. 3. Left lateral thigh contusion, partially imaged on this exam. ACT 112: Negative or not required by law. Electronically signed by: Los Gunn M.D. 10/13/2022 3:33 PM Hip/Pelvis X-Ray 10/13/22 14:33 XR hip LT 2V w pelvis CLINICAL HISTORY: pain fall COMPARISON: CT of the abdomen and pelvis August 03, 2022. FINDINGS: Incidental note is made of contrast within the bladder from recent contrast-enhanced CT. Note is made of an acute impacted nondisplaced subcapital left femoral neck fracture. No additional fractures are identified on this examination. Sacroiliac joints and symphysis pubis are intact. 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 IMPRESSION: Acute impacted nondisplaced subcapital left femoral neck fracture. ACT 112: Negative or not required by law. Electronically signed by: Los Gunn M.D. 10/13/2022 3:54 PM Discharge Plan Visit Data Chief Complaint: Trauma Stated Complaint: FALL, ALTERED, POSSIBLE LUMBAR DEFORMITY ED Provider: Naga Andersen Discharge Problem: Fracture of femoral neck, left, closed, Dementia, Fall from standing, Ambulatory dysfunction Patient Disposition: Admitted As Inpatient Discharge Instructions Interventions: ED Discharge Assessment Last Done: 10/13/22 17:22
[2022-10-13] MEDS ORDERED: ONDANSETRON INJ 2 MG/ML 2 ML VIAL ONE (14:45)
[2022-10-13] MEDS ORDERED: SODIUM CHLORIDE 0.9% 1000ML 1,000 ML IV SCH (14:45)
[2022-10-13 14:49] LABS: iSTAT Creatinine 0.8 mg/dl (0.6-1.3); iSTAT Ionized Calcium 1.21 mmol/l (1.12-1.32); iSTAT Potassium 4.3 mmol/L (3.3-5.0)
[2022-10-13] MEDS ORDERED: OPTIRAY 320 100ml IV ONE (14:56)
[2022-10-13 15:01] LABS: Basophils # (auto) 0.07 K/uL (0-0.2); Basophils % (auto) 0.9 %; Eosinophils # (auto) 0.15 K/uL (0-0.50); Eosinophils % (auto) 1.8 %; Hematocrit (blood only) 42.5 % (42.0-52.0); Hemoglobin 15.2 g/dl (14.0-18.0); Immature Granulocytes # (auto) 0.05 K/uL (0.01-0.20); Immature Granulocytes % (auto) 0.6 %; Lymphocytes # (auto) 1.46 K/uL (1.2-3.4); Mean Corpuscular Hemoglobin 31.5 pg (25.0-34.0); Mean Corpuscular Hgb Conc 35.8 g/dL (32.0-36.0); Mean Corpuscular Volume 88.2 fL (80.0-100.0); Mean Platelet Volume 9.4 fL (9.4-12.4); Monocytes # (auto) 0.68 K/uL (0.11-0.59); Monocytes % (auto) 8.4 %; Neutrophils % (auto) 70.3 %; Platelet Count 147 K/uL (130-400); RDW Coefficient of Variation 13.7 % (11.5-14.5); RDW Standard Deviation 44.2 fL (36.4-46.3); Red Blood Count 4.82 M/uL (4.70-6.10); White Blood Count 8.11 K/ul (4.8-10.8)
[2022-10-13] MEDS ORDERED: ONDANSETRON INJ 2 MG/ML 2 ML VIAL IV STA (15:04)
--- NOTE | 2022-10-13 15:10 | CT Scan Report ---
CT OF THE HEAD WITHOUT CONTRAST CLINICAL HISTORY: trauma fall pain COMPARISON STUDY: Head CT August 03, 2022. TECHNIQUE: Helical axial images of the head were obtained without IV contrast. Automated exposure con trol was utilized for the study. A dose lowering technique was utilized adhering to the principles o f ALARA. FINDINGS: No acute intracranial hemorrhage, midline shift or mass effect is present. White matter hyp odensities are unchanged and favor small vessel disease. The ventricular system is unremarkable. The basal cisterns are patent. No extra-axial collections are present. There are no findings to suggest a cute dural sinus thrombosis or acute territorial infarct. No significant calvarial abnormalities are present. Visualized portions of the sinuses and mastoid air cells are clear. IMPRESSION: 1. No acute intracranial findings. 2. No acute calvarial fracture. ACT 112: Negative or not required by law. Electronically signed by: Los Gunn M.D. 10/13/2022 3:08 PM
--- NOTE | 2022-10-13 15:12 | CT Scan Report ---
CT OF THE CERVICAL SPINE WITHOUT CONTRAST CLINICAL HISTORY: Trauma COMPARISON STUDY: Cervical spine CT August 05, 2020. CTA of the neck June 13, 2021. TECHNIQUE: Helical axial images of the cervical spine were obtained without IV contrast. Sagittal a nd coronal reconstructions were viewed. Automated exposure control was utilized for the study. A do se lowering technique was utilized adhering to the principles of ALARA. FINDINGS: Alignment of the cervical spine is anatomic. Vertebral body heights are maintained. No acut e cervical spine fracture or subluxation is present. There is no prevertebral edema. Facet joints are intact. Severe disc space narrowing at C5-C6 is noted. There is moderate disc space narrowing at C6 -C7. There is moderate multilevel facet arthrosis. There has been no significant change in appearance of the cervical spine. IMPRESSION: No acute cervical spine fracture or subluxation. ACT 112: Negative or not required by law. Electronically signed by: Los Gunn M.D. 10/13/2022 3:10 PM
[2022-10-13 15:16] LABS: Alanine Aminotransferase 24 U/L (7-52); Albumin Globulin Ratio 1.5 (0.9-2); Albumin Level 4.1 gm/dl (3.4-5.0); Alkaline Phosphatase 71 U/L (34-104); Anion Gap 5 (3-11); Aspartate Aminotransferase 24 U/L (13-39); BUN Creatinine Ratio 15.9 (10-20); Blood Urea Nitrogen 13 mg/dl (6-23); Calcium 9.5 mg/dl (8.6-10.3); Carbon Dioxide 27 mmol/L (21-32); Chloride 99 mmol/L (98-107); Creatine Kinase 64 U/L (30-223); Est GFR (African American) 95.4 ml/min; Est GFR (Non-African American) 82.4 ml/min; Globulin 2.7 gm/dl (2.5-4.0); Glucose 92 mg/dl (70-99(Fasting)); Potassium 4.2 mmol/L (3.5-5.1); Sodium 131 mmol/L (136-145); Total Protein 6.8 gm/dl (6.0-8.3)
--- NOTE | 2022-10-13 15:19 | CT Scan Report ---
CT OF THE CHEST WITH IV CONTRAST CLINICAL HISTORY: Trauma COMPARISON STUDY: Chest radiograph August 03, 2022. Chest CT August 05, 2020. TECHNIQUE: Following IV administration of 91 mL of Optiray, helical axial images of the chest were o btained. Sagittal and coronal reconstructions were viewed as well as maximal intensity projections o n an independent 3-D workstation. Automated exposure control was utilized for the study. A dose low ering technique was utilized adhering to the principles of ALARA. FINDINGS: There is no evidence for traumatic injury to the thoracic aorta. There are postoperative f indings consistent with aortic valve replacement and repair of the ascending aorta. Postoperative sarah earance is unchanged with mild dilatation of the proximal ascending aorta. There is moderate cardiome chuy. Right atrial and ventricular dilatation is unchanged. There is no pericardial effusion. There i s no pneumothorax or pleural effusion. There is no pulmonary contusion. Subpleural groundglass opacit ies favor atelectasis. No acute rib or thoracic spine fracture is right apical opacity is unchanged a nd represents scarring. The abdomen and pelvis CT will be reported separately. IMPRESSION: 1. No acute traumatic findings within the chest. 2. Stable postoperative findings consistent with aortic valve replacement and repair of the ascending aorta. ACT 112: Negative or not required by law. Electronically signed by: Los Gunn M.D. 10/13/2022 3:17 PM
--- NOTE | 2022-10-13 15:20 | CT Scan Report ---
CT thoracic spine w con CLINICAL HISTORY: trauma, fall pain COMPARISON STUDY: Chest CT August 05, 2020. TECHNIQUE: Axial images of the thoracic spine were obtained. Sagittal and coronal reconstructions wer e viewed. Automated exposure control was utilized for the study. A dose lowering technique was utili zed adhering to the principles of ALARA. FINDINGS: Alignment of the thoracic spine is anatomic. There is no acute thoracic spine fracture. The re is mild multilevel endplate osteophytosis and degenerative disc disease within the thoracic spine. Central canal and neural foramen are suboptimally assessed given CT technique. Please note that the chest CT will be reported separately. Postoperative findings consistent with aortic valve replacement and repair of the ascending aorta better depicted on that exam. There are no acute fractures within the visualized portions of the posterior ribs. IMPRESSION: No acute thoracic spine fracture or subluxation. ACT 112: Negative or not required by law. Electronically signed by: Los uGnn M.D. 10/13/2022 3:18 PM
[2022-10-13 15:23] LABS: Troponin I High Sensitivity 6.8 pg/ml (0-20)
--- NOTE | 2022-10-13 15:35 | CT Scan Report ---
CT OF THE ABDOMEN AND PELVIS WITH CONTRAST CLINICAL HISTORY: Trauma COMPARISON STUDY: CT of the abdomen and pelvis August 03, 2022. TECHNIQUE: Following IV administration of 91 mL of Optiray, axial images of the abdomen and pelvis we re obtained from the lung bases to the proximal femurs. Images were reviewed in the axial, sagittal, and coronal planes. IV contrast was administered without complication. Automated exposure control wa s utilized for the study. A dose lowering technique was utilized adhering to the principles of ALARA . FINDINGS: No hemoperitoneum or pneumoperitoneum is present. There is no evidence for traumatic injury to the liver, spleen, adrenal glands, kidneys or pancreas. There are a few suspected renal cysts. Th ere is no biliary or pancreatic ductal dilatation. The caliber and wall thickness of small and large bowel are normal. There is no free fluid. [place] balloon within the bladder is present. Gas within the bladder is well. Bladder wall thickening is noted, slightly decreased since prior exam. No acute lum bar spine fracture is noted. Note is made of an acute impacted subcapital left femoral neck fracture. Fracture is mildly angulated. No additional acute fractures are identified on this examination. Aort ic valve replacement is incidentally noted. This is better depicted on the chest CT. A left lateral t high contusion is present. IMPRESSION: 1. Acute impacted mildly angulated subcapital left femoral neck fracture. Fracture essentially nondis placed. 2. No evidence for traumatic injury to the solid abdominal viscera. 3. Left lateral thigh contusion, partially imaged on this exam. ACT 112: Negative or not required by law. Electronically signed by: Los Gunn M.D. 10/13/2022 3:33 PM
--- NOTE | 2022-10-13 15:48 | CT Scan Report ---
CT lumbar spine w con CLINICAL HISTORY: trauma, fall pain COMPARISON STUDY: Lumbar spine radiographs September 24, 2021. CT of the abdomen and pelvis August 03, 2022. TECHNIQUE: Axial images of the lumbar spine were obtained. Sagittal and coronal reconstructions were viewed. Automated exposure control was utilized for the study. A dose lowering technique was utilize d adhering to the principles of ALARA. FINDINGS: Grade one anterolisthesis of L5 on S1 due to bilateral L5 pars defect is unchanged. There i s no acute lumbar spine fracture. There is moderate multilevel degenerative disc disease and facet ar throsis within lumbar spine. No osseous lesions are noted. Mild rightward curvature of the lumbar spi ne is unchanged. IMPRESSION: 1. No acute lumbar spine fracture or subluxation. 2. No change in grade one anterolisthesis of L5 on S1 due to bilateral L5 pars defects. 3. Moderate multilevel degenerative changes within the lumbar spine. ACT 112: Negative or not required by law. Electronically signed by: Los Gunn M.D. 10/13/2022 3:45 PM
--- NOTE | 2022-10-13 15:48 | XRay Report ---
XR chest 1V portable CLINICAL HISTORY: trauma, fall pain COMPARISON STUDY: Chest radiograph August 03, 2022. Chest CT performed earlier today. FINDINGS: There is no pneumothorax or pleural effusion. 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 Cardiomediastinal silhouette is stable. There is no lobar consolidation. The appear ance of the chest has not significantly changed. IMPRESSION: No acute cardiopulmonary findings. No significant change in appearance of the chest. ACT 112: Negative or not required by law. Electronically signed by: Los Gunn M.D. 10/13/2022 3:46 PM
--- NOTE | 2022-10-13 15:55 | XRay Report ---
XR hip LT 2V w pelvis CLINICAL HISTORY: pain fall COMPARISON: CT of the abdomen and pelvis August 03, 2022. FINDINGS: Incidental note is made of contrast within the bladder from recent contrast-enhanced CT. N ote is made of an acute impacted nondisplaced subcapital left femoral neck fracture. No additional fr actures are identified on this examination. Sacroiliac joints and symphysis pubis are intact. 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 IMPRESSION: Acute impacted nondisplaced subcapital left femoral neck fracture. ACT 112: Negative or not required by law. Electronically signed by: Los Gunn M.D. 10/13/2022 3:54 PM
[2022-10-13 16:03] LABS: Appearance Urine Clear (Clear); Bilirubin Urine Negative (Negative); Blood Urine Negative (Negative); Color Urine Yellow; Glucose Urine UA Negative (Negative); Ketones Urine Negative (Negative); Leukocyte Esterase Urine Negative (Negative); Nitrite Urine Negative (Negative); Protein Urine Negative (Negative); Specific Gravity Urine 1.024 (1.000-1.030); Urobilinogen Urine Negative (Negative); pH Urine 7.5 (4.5-7.5)
--- NOTE | 2022-10-13 16:10 | History & Physical Report ---
Date of Service October 13, 2022 Assessment & Plan (1) Fracture of femoral neck, left, closed: Plan: -Admit to med/surge -Currently stable -Sustained a mechanical fall while raking leaves outside today, not on anticoagulation -Ortho consulted, Dr. Cain will see him tomorrow as he also did his rotator cuff repair years ago -Pain control for now with q6h PO tylenol scheduled and 2 mg IV morphine q3h prn pain 4+ -Hold chemical DVT PPX for now with his hx of hematuria and left thigh contusion today on CT -BL SCD's for DVT PPX -The patient is deemed medically stable for Surgery from a medicine perspective -AM CBC, BMP, PT/INR -NPO at midnight in preparation for OR tomorrow (2) Fall: Plan: -Mechanical fall sustained while losing his balance raking leaves -No symptoms prior to his fall to suggest another etiology -Extensive trauma workup in the ED only positive for left hip frx and left thigh contusion -Fall precautions ordered, bedrest for now -PT/OT consults after surgery (3) Hyponatremia: Plan: -Noted to be 131 -Appears to be a chronic issue -S/P 1L NSS in the ED, monitor am sodium, if not improved would being larger workup (4) Hypertension: Plan: -Stable off antihypertensives; was initially elevated on ED arrival, likely due to pain -Monitor for now (5) Dementia: Plan: -Not currently on treatment -Will need to monitor closely for delirium post-op as he has a history of severe delirium with anesthesia per his Daughter (6) Incomplete bladder emptying: Plan: -Continue chronic Martinez, catheter care ordered Q-shift -UA from today is clean Plan The patient was discussed with Dr. Sutton at the time of the admission History of Present Illness Chief Complaint: Fall, increased confusion compared to baseline Primary Care Provider: Keith Smith MD Keith Lopez is an 82-year-old male with chronic indwelling martinez, hematuria, dementia, BPPV, previous CVA, and FELIX who presented to the [facility] on 10/13/22 via EMS for an a fall and AMS. In the ED his vitals were noted for HTN of 200/121 otherwise stable. Labs including CBC, CMP, high sen trop, and covid-19 show a so dium of 133, otherwise are WNL. CT of the head, CT of the cervical spine, CT of the chest, CT of the thoracic spine, CT of the lumbar spine, and chest xray were negative for acute findings. Xray of the pelvis shows an Acute impacted nondisplaced subcapital left femoral neck fracture. CT of the abd/pelvis w/con confirmed the left hip fracture and also shows a left lateral thigh contusion. Prior to admission the patient was given a total of 1 mg IV morphine, 1 gm IV tylenol, and 1L NSS. At the time of the exam the patient was lying in bed in no acute distress with his and daughter sitting bedside, history was obtained from all. His states that they were both outside and the patient was raking leaves. The patient is typically supposed to use a walker with ambulation. His states that she went inside for a minute and when she came back out he was on the ground. The patient explains that he was raking leaves and over-extended himself. He started to lose his balance and ended up falling backwards. He is unsure if he lost consciousness but states that it would have only been for a short time if he did. He denies having dizziness, lightheadedness, chest pain, heart palpitations, or SOB prior to his fall. His only complaints at this time are his left hip pain and a mild headache. We discussed code status, the patient's and Daughter explain that the patient has a living will and is a DNR/DNI. His is currently his POA and if something happened to her they would want his daughter to make medical decisions for him. Please refer to Dr. Sutton's attestation for any changes to the treatment plan Allergies Allergy/AdvReac Type Severity Reaction Status Date / Time codeine AdvReac Intermediate GI SYMPTOMS Verified 10/13/22 15:22 Opioids - Morphine Analogues AdvReac Intermediate Vomiting Verified 10/13/22 15:22 Opioids-Meperidine and AdvReac Intermediate Vomiting Verified 10/13/22 15:22 Related Opioids-Methadone and Related AdvReac Intermediate Vomiting Verified 10/13/22 15:22 oxycodone [From Percocet] AdvReac Intermediate n/v Verified 10/13/22 15:22 Home Medications Medication Instructions Recorded Confirmed Type cholecalciferol (vitamin D3) 50 50 mcg PO DAILY 10/13/22 10/13/22 History mcg (2,000 unit) tablet (Vitamin D3) folic acid 1 mg tablet 1 mg PO DAILY 10/13/22 10/13/22 History mirabegron 25 mg tablet,extended 25 mg PO DAILY 10/13/22 10/13/22 History release 24 hr (Myrbetriq) pylcjabn-vzo-eurvf acid 300 1 tab PO DAILY 10/13/22 10/13/22 History mcg-lycopene 600 mcg-lutein 300 mcg tablet Past Med/Surg History Medical History Aneurysm of aortic arch Cerebral infarction, unspecified Gross hematuria History of anesthesia reaction History of bicuspid aortic valve History of stroke History of TIA (transient ischemic attack) Lyme disease Seizure Surgical History H/O aortic aneurysm repair H/O aortic valve replacement History of appendectomy (03/16/13) History of colonoscopy History of hernia surgery History of repair of right rotator cuff Family History Mother Lung cancer COPD (chronic obstructive pulmonary disease) Father Prostate cancer Coronary heart disease Myocardial infarction Family/Other Breast cancer Cancer Other Heart disease No family history of adverse response to anesthesia No family history of bleeding disorder Social History Smoking Status: Never smoker Second Hand Exposure: No; Do You Dip or Chew Tobacco: No; Hx Alcohol Use: No Hx Substance Use: No Preferred Language: Kazakh Communication Ability: Effective Communication Ability Comment: , Roxana Lopez, is POA. Visual Impairment: No Limitations Hearing Ability: Normal Claims Sorter Required: No Beliefs That Will Affect Care: None marital status: Current Living Situation: Spouse current occupational status: retired Other Information That Helps Us Care for You: No Feels Safe at Home: Yes Safety Concerns: Feels Safe At This Time Assistive Devices: None Physical Exam Physical Exam: Physical Exam: General: In no acute distress, stated age, well-nourished, good hygiene HEENT: Normocephalic, atraumatic, no scleral icterus, pupils around round, symmetrical, and reactive to light, moist mucus membranes, trachea midline, no thyromegaly Chest/Pulm: No respiratory distress, symmetrical chest expansion, clear breath sounds throughout Cardiac: RRR, no murmurs noted Abdomen: Negative for ascites and bruising, normoactive bowel sounds, soft, non-tender to palpation throughout Musculoskeletal: No trauma or tenderness to palpation of the head, neck cervical spine, BL shoulders, chest, abd, and RLE. Patient with LLE currently minimally shortened and externally rotated, intact motor function and sensation in the BL feet Extremities: Radial, dorsalis pedis, and posterior tibial pulses are intact and symmetrical, no edema noted in the BL LE's Skin: Warm, dry, no rashes , lesions, or scars noted Neuro: Alert and oriented to person, month, year,no focal defects, CN II-XII tested and intact, no tremors noted Psych: No acute distress, calm and cooperative during the exam Results & Data Results & Data Vital Signs (Past 12 Hours) Vital Signs Temp Pulse Resp BP Pulse Ox O2 Del Method 10/13/22 15:15 65 15 93 10/13/22 15:15 173/104 H 10/13/22 15:05 190/110 H 10/13/22 15:05 74 18 93 10/13/22 13:57 96 Room Air 10/13/22 13:57 36.8 C 82 18 200/121 H 96 Room Air 10/13/22 15:04 75 19 190/110 H 93 10/13/22 14:45 73 20 189/99 H 93 10/13/22 14:33 70 22 94 10/13/22 14:33 200/121 H 10/13/22 14:30 76 20 94 10/13/22 14:28 77 16 10/13/22 14:28 68 Laboratory Results Abnormal lab results 10/13/22 10/13/22 10/13/22 Range/Units 14:37 14:37 14:37 [place] # (Auto) 0.68 H (0.11-0.59) K/uL POC Sodium 133 L (135-144) mmol/L Sodium 131 L (136-145) mmol/L POC Chloride 97 L (101-112) mmol/L Diagnostic Findings Chest X-Ray 10/13/22 14:30 XR chest 1V portable CLINICAL HISTORY: trauma, fall pain COMPARISON STUDY: Chest radiograph August 03, 2022. Chest CT performed earlier today. FINDINGS: There is no pneumothorax or pleural effusion. 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 Cardiomediastinal silhouette is stable. There is no lobar consolidation. The appearance of the chest has not significantly changed. IMPRESSION: No acute cardiopulmonary findings. No significant change in appearance of the chest. ACT 112: Negative or not required by law. Electronically signed by: Los Gunn M.D. 10/13/2022 3:[address] 10/13/22 14:30 CT lumbar spine w con CLINICAL HISTORY: trauma, fall pain COMPARISON STUDY: Lumbar spine radiographs September 24, 2021. CT of the abdomen and pelvis August 03, 2022. TECHNIQUE: Axial images of the lumbar spine were obtained. Sagittal and coronal reconstructions were viewed. Automated exposure control was utilized for the study. A dose lowering technique was utilized adhering to the principles of ALARA. FINDINGS: Grade one anterolisthesis of L5 on S1 due to bilateral L5 pars defect is unchanged. There is no acute lumbar spine fracture. There is moderate multilevel degenerative disc disease and facet arthrosis within lumbar spine. No osseous lesions are noted. Mild rightward curvature of the lumbar spine is unchanged. IMPRESSION: 1. No acute lumbar spine fracture or subluxation. 2. No change in grade one anterolisthesis of L5 on S1 due to bilateral L5 pars defects. 3. Moderate multilevel degenerative changes within the lumbar spine. ACT 112: Negative or not required by law. Electronically signed by: Los Gunn M.D. 10/13/2022 3:[address] 10/13/22 14:30 CT thoracic spine w con CLINICAL HISTORY: trauma, fall pain COMPARISON STUDY: Chest CT August 05, 2020. TECHNIQUE: Axial images of the thoracic spine were obtained. Sagittal and coronal reconstructions were viewed. Automated exposure control was utilized for the study. A dose lowering technique was utilized adhering to the principles of ALARA. FINDINGS: Alignment of the thoracic spine is anatomic. There is no acute thoracic spine fracture. There is mild multilevel endplate osteophytosis and degenerative disc disease within the thoracic spine. Central canal and neural foramen are suboptimally assessed given CT technique. Please note that the chest CT will be reported separately. Postoperative findings consistent with aortic valve replacement and repair of the ascending aorta better depicted on that exam. There are no acute fractures within the visualized portions of the posterior ribs. IMPRESSION: No acute thoracic spine fracture or subluxation. ACT 112: Negative or not required by law. Electronically signed by: Los Gunn M.D. 10/13/2022 3:18 PM Abdomen/Pelvis CT 10/13/22 14:31 CT OF THE ABDOMEN AND PELVIS WITH CONTRAST CLINICAL HISTORY: Trauma COMPARISON STUDY: CT of the abdomen and pelvis August 03, 2022. TECHNIQUE: Following IV administration of 91 mL of Optiray, axial images of the abdomen and pelvis were obtained from the lung bases to the proximal femurs. Images were reviewed in the axial, sagittal, and coronal planes. IV contrast was administered without complication. Automated exposure control was utilized for the study. A dose lowering technique was utilized adhering to the principles of ALARA. FINDINGS: No hemoperitoneum or pneumoperitoneum is present. There is no evidence for traumatic injury to the liver, spleen, adrenal glands, kidneys or pancreas. There are a few suspected renal cysts. There is no biliary or pancreatic ductal dilatation. The caliber and wall thickness of small and large bowel are normal. There is no free fluid. Martinez balloon within the bladder is present. Gas within the bladder is well. Bladder wall thickening is noted, slightly decreased since prior exam. No acute lumbar spine fracture is noted. Note is made of an acute impacted subcapital left femoral neck fracture. Fracture is mildly angulated. No additional acute fractures are identified on this examination. Aortic valve replacement is incidentally noted. This is better depicted on the chest CT. A left lateral thigh contusion is present. IMPRESSION: 1. Acute impacted mildly angulated subcapital left femoral neck fracture. Fracture essentially nondisplaced. 2. No evidence for traumatic injury to the solid abdominal viscera. 3. Left lateral thigh contusion, partially imaged on this exam. ACT 112: Negative or not required by law. Electronically signed by: Los Gunn M.D. 10/13/2022 3:[address] 10/13/22 14:31 CT OF THE CERVICAL SPINE WITHOUT CONTRAST CLINICAL HISTORY: Trauma COMPARISON STUDY: Cervical spine CT August 05, 2020. CTA of the neck June 13, 2021. TECHNIQUE: Helical axial images of the cervical spine were obtained without IV contrast. Sagittal and coronal reconstructions were viewed. Automated exposure control was utilized for the study. A dose lowering technique was utilized adhering to the principles of ALARA. FINDINGS: Alignment of the cervical spine is anatomic. Vertebral body heights are maintained. No acute cervical spine fracture or subluxation is present. There is no prevertebral edema. Facet joints are intact. Severe disc space narrowing at C5-C6 is noted. There is moderate disc space narrowing at C6-C7. There is moderate multilevel facet arthrosis. There has been no significant change in appearance of the cervical spine. IMPRESSION: No acute cervical spine fracture or subluxation. ACT 112: Negative or not required by law. Electronically signed by: Los Gunn M.D. 10/13/2022 3:[address] 10/13/22 14:31 CT OF THE CHEST WITH IV CONTRAST CLINICAL HISTORY: Trauma COMPARISON STUDY: Chest radiograph August 03, 2022. Chest CT August 05, 2020. TECHNIQUE: Following IV administration of 91 mL of Optiray, helical axial images of the chest were obtained. Sagittal and coronal reconstructions were viewed as well as maximal intensity projections on an independent 3-D workstation. Automated exposure control was utilized for the study. A dose lowering technique was utilized adhering to the principles of ALARA. FINDINGS: There is no evidence for traumatic injury to the thoracic aorta. There are postoperative findings consistent with aortic valve replacement and repair of the ascending aorta. Postoperative appearance is unchanged with mild dilatation of the proximal ascending aorta. There is moderate cardiomegaly. Right atrial and ventricular dilatation is unchanged. There is no pericardial e ffusion. There is no pneumothorax or pleural effusion. There is no pulmonary contusion. Subpleural groundglass opacities favor atelectasis. No acute rib or thoracic spine fracture is right apical opacity is unchanged and represents scarring. The abdomen and pelvis CT will be reported separately. IMPRESSION: 1. No acute traumatic findings within the chest. 2. Stable postoperative findings consistent with aortic valve replacement and repair of the ascending aorta. ACT 112: Negative or not required by law. Electronically signed by: Los Gunn M.D. 10/13/2022 3:17 PM Hip/Pelvis X-Ray 10/13/22 14:33 XR hip LT 2V w pelvis CLINICAL HISTORY: pain fall COMPARISON: CT of the abdomen and pelvis August 03, 2022. FINDINGS: Incidental note is made of contrast within the bladder from recent contrast-enhanced CT. Note is made of an acute impacted nondisplaced subcapital left femoral neck fracture. No additional fractures are identified on this examination. Sacroiliac joints and symphysis pubis are intact. 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 IMPRESSION: Acute impacted nondisplaced subcapital left femoral neck fracture. ACT 112: Negative or not required by law. Electronically signed by: Los Gunn M.D. 10/13/2022 3:[address] 10/13/22 14:42 CT OF THE HEAD WITHOUT CONTRAST CLINICAL HISTORY: trauma fall pain COMPARISON STUDY: Head CT August 03, 2022. TECHNIQUE: Helical axial images of the head were obtained without IV contrast. Automated exposure control was utilized for the study. A dose lowering technique was utilized adhering to the principles of ALARA. FINDINGS: No acute intracranial hemorrhage, midline shift or mass effect is pr esent. White matter hypodensities are unchanged and favor small vessel disease. The ventricular system is unremarkable. The basal cisterns are patent. No extra- axial collections are present. There are no findings to suggest acute dural sinus thrombosis or acute territorial infarct. No significant calvarial abnormalities are present. Visualized portions of the sinuses and mastoid air cells are clear. IMPRESSION: 1. No acute intracranial findings. 2. No acute calvarial fracture. ACT 112: Negative or not required by law. Electronically signed by: Los Gunn M.D. 10/13/2022 3:08 PM ECG Additional Comments: Sinus rhythm with 1st degree A-V block Septal infarct (cited on or before 16-OCT-2020) Abnormal ECG When compared with ECG of 03-AUG-2022 18:01, Premature atrial complexes are no longer Present SC interval has increased QRS axis Shifted right Code Status & VTE Plan Code Status DNR/DNI VTE Prophylaxis Plan VTE Prophylaxis will be ordered: Yes Supervising Physician Co-Signing Physician Notes I personally saw and examined the patient. I verified all brandon points and agree with Stephon Slaughter PA-C with the following exceptions and/or additions: 82 year old male presents to the ER following a fall with left hip pain following the fall. No chest pain or shortness of breath on exertion. Fall due to him being unbalanced and not using his walker - no other concerning factors prior to falling. CXR and EKG reviewed. O/E HS RRR, mild murmur, Chest CTAB, Abdo SNT, leg not shortened or externally rotated A/P Left hip fracture - NPO midnight, NSS, pain management as above. Revised cardiac risk index 1, 6% 30-day risk of , [place] or cardiac arrest. He is medically optimized for surgery at this time. PG Care Time/CCT Total # of Minutes Spent Total Time Spent with Patient: Total time spent is greater than 50% in coordination of care (as documented) at patient's floor/unit and/or counseling patient: Coding [place] [address] INT INP/OBS CARE 2/55MIN Patient Type Established Medical Decision Making High Complexity Diagnoses Fracture of femoral neck, left, closed S72.002A Fall W19.XXXA Encounter type: initial encounter Hyponatremia E87.1 Hypertension I10 Dementia F03.90 Incomplete bladder emptying R33.9 (2) Fall Encounter type: initial encounter Qualified Code(s): W19.XXXA - Unspecified fall, initial encounter
[2022-10-13] MEDS ORDERED: MAGNESIUM HYDROXIDE SUSP 30 ML UDC PO PRN (16:38)
[2022-10-13] MEDS ORDERED: bisacodyL 10 MG SUPP PR PRN (16:38)
[2022-10-13] MEDS ORDERED: NALOXONE HCL 0.4 MG/1 ML VIAL/CARP IV PRN (16:38)
[2022-10-13] MEDS: DOCUSATE SODIUM/SENNA 50/8.6MG TAB PO SCH (20:14)
[2022-10-13] MEDS: ACETAMINOPHEN 325 MG TAB PO SCH (20:15)
[2022-10-13] MEDS: MoRPHine SULFATE 2 MG/ML CARP IV PRN (22:28)
[2022-10-14] MEDS: ACETAMINOPHEN 325 MG TAB PO SCH ×4 (02:14→20:47)
--- NOTE | 2022-10-14 07:14 | XRay Report ---
XR hip LT 1V CLINICAL HISTORY: need cross-table lateral of left hip for fracture TECHNIQUE: 1 views of the left hip were obtained. Comparison: Comparison is made to hip radiographs 10/13/2022 FINDINGS/IMPRESSION: Exam is highly limited by underpenetration. There is suggestion of a fracture of the left hip. ACT 112: Negative or not required by law. Electronically signed by: Jose Curry M.D. 10/14/2022 7:13 AM
--- NOTE | 2022-10-14 07:18 | Orthopedic Consultation ---
Date of Service October 14, 2022 Assessment & Plan (1) Fracture of femoral neck, left, closed: It does appear that he is got likely a femoral neck fracture but clinically he does not have the pain that you would typically expect. Considering the difficulty in evaluating his plain films and the concern for displacement unguinal order an MRI to confirm the and make sure that he is got a fracture here first and assess displacement. If there is a fracture he is going require surgical treatment. If it is displaced will be had bipolar hip arthroplasty. With valgus impacted will do cannulated screws. We will try and get that MRI here this morning and make a determination. I will keep him n.p.o. for now. History of Present Illness Reason for Consultation: . Left hip fracture Requesting Physician: . Attending Physician: Irene Merchant DO . Patient is a 82-year-old gentleman with multiple medical comorbidities including dementia, history of AAA repair, history of a stroke, aortic valve replacement who sustained a fall yesterday. Apparently outside raking leaves and lost his balance and fell. The cute onset of pain was brought to emergency room where x- rays suggested a valgus impacted femoral neck fracture. He has been admitted by the hospitalist service and were consulted for evaluation. Denies any pre- existing hip pain. He does usually use a walker for ambulation. Allergies Allergy/AdvReac Type Severity Reaction Status Date / Time codeine AdvReac Intermediate GI SYMPTOMS Verified 10/13/22 15:22 Opioids - Morphine Analogues AdvReac Intermediate Vomiting Verified 10/13/22 15:22 Opioids-Meperidine and AdvReac Intermediate Vomiting Verified 10/13/22 15:22 Related Opioids-Methadone and Related AdvReac Intermediate Vomiting Verified 10/13/22 15:22 oxycodone [From Percocet] AdvReac Intermediate n/v Verified 10/13/22 15:22 Home Medications Medication Instructions Recorded Confirmed Type cholecalciferol (vitamin D3) 50 50 mcg PO DAILY 10/13/22 10/13/22 History mcg (2,000 unit) tablet (Vitamin D3) folic acid 1 mg tablet 1 mg PO DAILY 10/13/22 10/13/22 History mirabegron 25 mg tablet,extended 25 mg PO DAILY 10/13/22 10/13/22 History release 24 hr (Myrbetriq) zpbcifql-vvg-bopqx acid 300 1 tab PO DAILY 10/13/22 10/13/22 History mcg-lycopene 600 mcg-lutein 300 mcg tablet Past Med/Surg History Medical History Aneurysm of aortic arch Cerebral infarction, unspecified Gross hematuria History of anesthesia reaction WITH HERNIA SURGERY ([facility]) HAD TROUBLE WAKING UP History of bicuspid aortic valve History of stroke 2012 - RESIDUAL: STABILITY ISSUE History of TIA (transient ischemic attack) SEPTEMBER 14, 2018 - (USUALLY TIA OCCURS 1X PER YR/STARTED 5 YR AGO)/DR FARRELL Lyme disease Seizure X1 OR 2 - WHEN TX FOR STROKE IN 2012/ DR FARRELL Surgical History H/O aortic aneurysm repair H/O aortic valve replacement 2013 - AND BICUSPID VALVE REPLACED AT SAME TIME PER PT REPORT /"OPEN HEART" 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 History of appendectomy (03/16/13) History of colonoscopy History of hernia surgery X2 History of repair of right rotator cuff Family History Mother , age 70 of lung cancer Lung cancer COPD (chronic obstructive pulmonary disease) Father , age 91 of prostate cancer Prostate cancer Coronary heart disease Myocardial infarction Family/Other Breast cancer Cancer Other Heart disease No family history of adverse response to anesthesia No family history of bleeding disorder Social History Smoking Status: Never smoker Second Hand Exposure: No; Do You Dip or Chew Tobacco: No; Hx Alcohol Use: No Hx Substance Use: No Preferred Language: Hebrew Communication Ability: Effective Communication Ability Comment: , Roxana Lopez, is POA. 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 Physical Exam . Physical examination reveals a pleasant somewhat demented elderly gentleman. He does appear to recognize me as is of one of his physicians. Examination of the left hip and leg reveals maybe just a slight bit of external rotation compared to the other side. There is no obvious other deformity. No swelling. He does not have a lot of pain with hip motion. He can do a straight leg raise on his own. He is neurologically intact. No knee effusion. Results & Data Results & Data Laboratory Results . Diagnostic Findings . X-rays of the pelvis and left hip were reviewed. They suggest probably a valgus impacted femoral neck fracture. Certainly not definitive on plain x-rays. The lateral films look like to if there is a fracture there may be some anterior angulation. PG Care Time/CCT Total # of Minutes Spent Total Time Spent with Patient: Total time spent is greater than 50% in coordination of care (as documented) at patient's floor/unit and/or counseling patient: Coding Level of Care Code 96983 IN/OBS CONSULT LVL 5,80M Diagnoses Fracture of femoral neck, left, closed S72.002A
[2022-10-14 07:35] LABS: Basophils # (auto) 0.06 K/uL (0-0.2); Basophils % (auto) 0.7 %; Eosinophils # (auto) 0.26 K/uL (0-0.50); Eosinophils % (auto) 3.1 %; Hematocrit (blood only) 40.2 % (42.0-52.0); Hemoglobin 14.1 g/dl (14.0-18.0); Immature Granulocytes # (auto) 0.02 K/uL (0.01-0.20); Immature Granulocytes % (auto) 0.2 %; Lymphocytes # (auto) 1.75 K/uL (1.2-3.4); Mean Corpuscular Hemoglobin 31.5 pg (25.0-34.0); Mean Corpuscular Hgb Conc 35.1 g/dL (32.0-36.0); Mean Corpuscular Volume 89.9 fL (80.0-100.0); Mean Platelet Volume 9.6 fL (9.4-12.4); Monocytes # (auto) 0.81 K/uL (0.11-0.59); Monocytes % (auto) 9.7 %; Neutrophils # (auto) 5.43 K/uL (1.40-6.50); Neutrophils % (auto) 65.3 %; Platelet Count 151 K/uL (130-400); RDW Coefficient of Variation 13.5 % (11.5-14.5); RDW Standard Deviation 44.2 fL (36.4-46.3); Red Blood Count 4.47 M/uL (4.70-6.10); White Blood Count 8.33 K/ul (4.8-10.8)
--- NOTE | 2022-10-14 07:36 | Anesthesiology Consultation ---
Date of Service October 14, 2022 History Height/Weight Height: 5 ft 9 in Weight: 74 kg Allergies Allergy/AdvReac Type Severity Reaction Status Date / Time codeine AdvReac Intermediate GI SYMPTOMS Verified 10/13/22 15:22 Opioids - Morphine Analogues AdvReac Intermediate Vomiting Verified 10/13/22 15:22 Opioids-Meperidine and AdvReac Intermediate Vomiting Verified 10/13/22 15:22 Related Opioids-Methadone and Related AdvReac Intermediate Vomiting Verified 10/13/22 15:22 oxycodone [From Percocet] AdvReac Intermediate n/v Verified 10/13/22 15:22 Medications Home Medications Medication Instructions Recorded Confirmed Last Taken cholecalciferol (vitamin D3) 50 50 mcg PO DAILY 10/13/22 10/13/22 Unknown mcg (2,000 unit) tablet (Vitamin D3) folic acid 1 mg tablet 1 mg PO DAILY 10/13/22 10/13/22 Unknown mirabegron 25 mg tablet,extended 25 mg PO DAILY 10/13/22 10/13/22 Unknown release 24 hr (Myrbetriq) jnzyfyyv-rmu-cbtwx acid 300 1 tab PO DAILY 10/13/22 10/13/22 Unknown mcg-lycopene 600 mcg-lutein 300 mcg tablet Active Medications Generic Name Dose Route Start Last Admin Trade Name Freq PRN Reason Stop Dose Admin Acetaminophen 650 mg 10/13/22 20:00 10/14/22 02:14 Acetaminophen 325 Mg Tab PO 11/12/22 19:59 650 mg Q6H BRENDA Administration Morphine Sulfate 2 mg 10/13/22 16:38 10/13/22 22:28 Morphine Sulfate 2 Mg/Ml Carp IV 10/27/22 16:37 2 mg Q3H PRN Administration Pain(4,5,6,7,8,9,10+) & Pre PT Senna/Docusate Sodium 2 tab 10/13/22 21:00 10/13/22 20:14 Docusate Sodium/Senna 50/8.6mg Tab PO 11/12/22 20:59 2 tab HS BRENDA Administration Past Medical History Medical History Aneurysm of aortic arch Cerebral infarction, unspecified Gross hematuria History of anesthesia reaction WITH HERNIA SURGERY ([facility]) HAD TROUBLE WAKING UP History of bicuspid aortic valve History of stroke 2012 - RESIDUAL: STABILITY ISSUE History of TIA (transient ischemic attack) SEPTEMBER 14, 2018 - (USUALLY TIA OCCURS 1X PER YR/STARTED 5 YR AGO)/DR FARRELL Lyme disease Seizure X1 OR 2 - WHEN TX FOR STROKE IN 2012/ DR FARRELL Past Family History Family History Mother , age 70 of lung cancer Lung cancer COPD (chronic obstructive pulmonary disease) Father , age 91 of prostate cancer Prostate cancer Coronary heart disease Myocardial infarction Family/Other Breast cancer Cancer Other Heart disease No family history of adverse response to anesthesia No family history of bleeding disorder Past Surgical History Surgical History H/O aortic aneurysm repair H/O aortic valve replacement 2013 - AND BICUSPID VALVE REPLACED AT SAME TIME PER PT REPORT /"OPEN HEART" 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 History of appendectomy (03/16/13) History of colonoscopy History of hernia surgery X2 History of repair of right rotator cuff Social History Smoking Status: Never smoker Do You Dip or Chew Tobacco: No Hx Alcohol Use: No Alcohol type: beer alcohol intake frequency: holidays/special occasions only Hx Substance Use: No substance use type: does not use Physical Exam Vital Signs Last Vital Signs Temp 36.8 C 10/13/22 20:12 Pulse 75 10/13/22 20:12 Resp 16 10/13/22 20:12 BP 161/102 H 10/13/22 20:12 Pulse Ox 94 10/13/22 20:51 O2 Del Method Room Air 10/13/22 20:51 Testing Laboratory Results PT 11.0 Seconds (9.0-12.0) 10/13/22 14:37 INR 1.0 (0.9-1.1) 10/13/22 14:37 Urine Color Yellow 10/13/22 15:48 Urine Appearance Clear (Clear) 10/13/22 15:48 Urine pH 7.5 (4.5-7.5) 10/13/22 15:48 Ur Specific [place] 1.024 (1.000-1.030) 10/13/22 15:48 Urine Protein Negative (Negative) 10/13/22 15:48 Urine Glucose (UA) Negative (Negative) 10/13/22 15:48 Urine Ketones Negative (Negative) 10/13/22 15:48 Urine Nitrite Negative (Negative) 10/13/22 15:48 Ur Leukocyte Esterase Negative (Negative) 10/13/22 15:48 Blood Type O Positive 10/13/22 14:34 Antibody Screen NEGATIVE 10/13/22 14:34 Laboratory Tests 10/13/22 10/14/22 14:37 06:51 Hgb 14.1 Plt Count 151 Sodium 131 L Potassium 4.2 Creatinine 0.82 COVID test negative this admission Electrocardiogram Date: 10/13/22 Findings: + NSR @ (77) and + poor R wave progression 1st degree AV block Echocardiogram Date: 11/21/21 EF: 55-60% LV Function: normal RV systolic pressure 30-40 bioprosthetic aortic valve with normal gradients
[2022-10-14 07:51] LABS: Albumin Globulin Ratio 1.4 (0.9-2); Albumin Level 3.6 gm/dl (3.4-5.0); BUN Creatinine Ratio 13.8 (10-20); Bilirubin,Total 1.2 mg/dl (0.2-1.0); Calcium 8.7 mg/dl (8.6-10.3); Creatinine Clr Calc Pharmacy 87.6 ml/min; Est GFR (Non-African American) 90.6 ml/min; Globulin 2.5 gm/dl (2.5-4.0); Magnesium 1.8 mg/dl (1.7-2.4); Total Protein 6.1 gm/dl (6.0-8.3)
[2022-10-14 08:00] LABS: Prothrombin Time 11.3 Seconds (9.0-12.0)
[2022-10-14] MEDS: FOLIC ACID 1 MG TAB PO SCH (08:13)
[2022-10-14] MEDS: MIRABEGRON ER 25 MG TAB PO SCH (08:13)
--- NOTE | 2022-10-14 10:18 | Hospitalist Progress Note ---
Date of Service October 14, 2022 Assessment & Plan (1) Fracture of femoral neck, left, closed: Plan: -Admit to med/surge -Currently stable -Sustained a mechanical fall while raking leaves outside 10/13, not on anticoagulation -Ortho consulted, Dr. Cain evaluated patient and ordered a MRI to confirm fracture and assess for displacement -MRI revealed acute mildly angulated and impacted subcapital left femoral fracture, no dislocation -Patient's pain has been managed with Tylenol (he has dementia and this likely is playing a role in patient expressing his pain) -Pain control for now with q6h PO tylenol scheduled and 2 mg IV morphine q3h prn pain 4+ -Hold chemical DVT PPX for now with his hx of hematuria and left thigh contusion today on CT -BL SCD's for DVT PPX -The patient is deemed appropriate risk for surgery, hemodynamically stable, electrolytes stable, no significant end organ dysfunction -Patient has been NPO for surgery today (2) Fall: Plan: -Mechanical fall sustained while losing his balance raking leaves 10/13 -No symptoms prior to his fall to suggest another etiology -Extensive trauma workup in the ED only positive for left hip fx and left thigh contusion -Fall precautions ordered, bedrest for now -PT/OT consults after surgery (3) Hyponatremia: Plan: -Improved to 134 (131) -Appears to be a chronic issue -S/P 1L NSS in the ED (4) Hypertension: Plan: -Stable off antihypertensives; was initially elevated on ED arrival, likely due to pain -Monitor for now -Currently 159/84 (was 200s/120s) (5) Dementia: Plan: -Not currently on treatment -Will need to monitor closely for delirium post-op as he has a history of severe delirium with anesthesia per his Daughter (6) Incomplete bladder emptying: Plan: -Continue chronic Gamboa, catheter care ordered Q-shift -UA from today is clean -Continue Myrbetriq Plan The patient was discussed with Dr. Merchant Admission and Anticipated Discharge Date Admission Date: October 13, 2022 Supervising Physician Co-Signing Physician Notes PA Supervision Note: I personally saw and examined the patient. I verified all brandon points and agree with CRISTIAN Cheng with the following exceptions and/or additions: none. Plan for hip repair today, with PT/OT after and CM to follow for dispo planning. Subjective Patient was seen this AM on rounds, he was sleeping comfortably. He just came back from MRI and his dtr was at his bedside. Review of Systems Constitutional: + fatigue; no fever and no chills Respiratory: no cough, no chest congestion and no dyspnea Cardiovascular: no chest pain, no dyspnea, no lightheadedness and no calf pain Gastrointestinal: no abdominal pain, no bloating, no nausea, no vomiting and no change in bowel habits Musculoskeletal: mechanical fall 10/13 currently denies any pain Integumentary: skin abrasions on left hand secondary to fall Psychiatric: Hx dementia and hx of problems with paranoia after anesthesia Endocrine: + fatigue; no polydipsia, no polyphagia and no polyuria Physical Exam Constitutional: WD/WN, vitals as above Neck: trachea midline, no thyromegaly Respiratory: normal respiratory effort, lungs clear to auscultation Cardiovascular: RRR, no murmur, no edema Extremities: normal capillary refill; no calf tenderness and no edema Gastrointestinal (Abdomen): normal bowel sounds, soft, nontender, no hepatosplenomegaly Skin: dressing over abrasions left hand Results & Data Results & Data Vital Signs (Past 12 Hours) Vital Signs Temp Pulse Resp BP Pulse Ox Pulse Ox O2 Del Method 10/14/22 07:30 Room Air 10/14/22 08:00 93 10/14/22 07:42 36.6 C 70 16 159/84 H 93 Room Air O2 Del Method 10/14/22 07:30 10/14/22 08:00 Room Air 10/14/22 07:42 Laboratory Results Abnormal lab results 10/13/22 10/13/22 10/13/22 Range/Units 14:37 14:37 14:37 RBC (4.70-6.10) M/uL Hct (42.0-52.0) % Cowley # (Auto) 0.68 H (0.11-0.59) K/uL POC Sodium 133 L (135-144) mmol/L Sodium 131 L (136-145) mmol/L POC Chloride 97 L (101-112) mmol/L Total Bilirubin (0.2-1.0) mg/dl 10/14/22 10/14/22 Range/Units 06:51 06:51 RBC 4.47 L (4.70-6.10) M/uL Hct 40.2 L (42.0-52.0) % Cowley # (Auto) 0.81 H (0.11-0.59) K/uL POC Sodium (135-144) mmol/L Sodium 134 L (136-145) mmol/L POC Chloride (101-112) mmol/L Total Bilirubin 1.2 H (0.2-1.0) mg/dl Diagnostic Findings Chest X-Ray 10/13/22 14:30 XR chest 1V portable CLINICAL HISTORY: trauma, fall pain COMPARISON STUDY: Chest radiograph August 03, 2022. Chest CT performed earlier today. FINDINGS: There is no pneumothorax or pleural effusion. 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 Cardiomediastinal silhouette is stable. There is no lobar consolidation. The appearance of the chest has not significantly changed. IMPRESSION: No acute cardiopulmonary findings. No significant change in appearance of the chest. ACT 112: Negative or not required by law. Electronically signed by: Los Gunn M.D. 10/13/2022 3:[address] 10/13/22 14:30 CT lumbar spine w con CLINICAL HISTORY: trauma, fall pain COMPARISON STUDY: Lumbar spine radiographs September 24, 2021. CT of the abdomen and pelvis August 03, 2022. TECHNIQUE: Axial images of the lumbar spine were obtained. Sagittal and coronal reconstructions were viewed. Automated exposure control was utilized for the study. A dose lowering technique was utilized adhering to the principles of ALARA. FINDINGS: Grade one anterolisthesis of L5 on S1 due to bilateral L5 pars defect is unchanged. There is no acute lumbar spine fracture. There is moderate multilevel degenerative disc disease and facet arthrosis within lumbar spine. No osseous lesions are noted. Mild rightward curvature of the lumbar spine is unchanged. IMPRESSION: 1. No acute lumbar spine fracture or subluxation. 2. No change in grade one anterolisthesis of L5 on S1 due to bilateral L5 pars defects. 3. Moderate multilevel degenerative changes within the lumbar spine. ACT 112: Negative or not required by law. Electronically signed by: Los Gunn M.D. 10/13/2022 3:[address] 10/13/22 14:30 CT thoracic spine w con CLINICAL HISTORY: trauma, fall pain COMPARISON STUDY: Chest CT August 05, 2020. TECHNIQUE: Axial images of the thoracic spine were obtained. Sagittal and coronal reconstructions were viewed. Automated exposure control was utilized for the study. A dose lowering technique was utilized adhering to the principles of ALARA. FINDINGS: Alignment of the thoracic spine is anatomic. There is no acute thoracic spine fracture. There is mild multilevel endplate osteophytosis and degenerative disc disease within the thoracic spine. Central canal and neural foramen are suboptimally assessed given CT technique. Please note that the chest CT will be reported separately. Postoperative findings consistent with aortic valve replacement and repair of the ascending aorta better depicted on that exam. There are no acute fractures within the visualized portions of the posterior ribs. IMPRESSION: No acute thoracic spine fracture or subluxation. ACT 112: Negative or not required by law. Electronically signed by: Los Gunn M.D. 10/13/2022 3:18 PM Abdomen/Pelvis CT 10/13/22 14:31 CT OF THE ABDOMEN AND PELVIS WITH CONTRAST CLINICAL HISTORY: Trauma COMPARISON STUDY: CT of the abdomen and pelvis August 03, 2022. TECHNIQUE: Following IV administration of 91 mL of Optiray, axial images of the abdomen and pelvis were obtained from the lung bases to the proximal femurs. Images were reviewed in the axial, sagittal, and coronal planes. IV contrast was administered without complication. Automated exposure control was utilized for the study. A dose lowering technique was utilized adhering to the principles of ALARA. FINDINGS: No hemoperitoneum or pneumoperitoneum is present. There is no evidence for traumatic injury to the liver, spleen, adrenal glands, kidneys or pancreas. There are a few suspected renal cysts. There is no biliary or pancreatic ductal dilatation. The caliber and wall thickness of small and large bowel are normal. There is no free fluid. [place] balloon within the bladder is present. Gas within the bladder is well. Bladder wall thickening is noted, slightly decreased since prior exam. No acute lumbar spine fracture is noted. Note is made of an acute impacted subcapital left femoral neck fracture. Fracture is mildly angulated. No additional acute fractures are identified on this examination. Aortic valve replacement is incidentally noted. This is better depicted on the chest CT. A left lateral thigh contusion is present. IMPRESSION: 1. Acute impacted mildly angulated subcapital left femoral neck fracture. Fracture essentially nondisplaced. 2. No evidence for traumatic injury to the solid abdominal viscera. 3. Left lateral thigh contusion, partially imaged on this exam. ACT 112: Negative or not required by law. Electronically signed by: Los Gunn M.D. 10/13/2022 3:[address] 10/13/22 14:31 CT OF THE CERVICAL SPINE WITHOUT CONTRAST CLINICAL HISTORY: Trauma COMPARISON STUDY: Cervical spine CT August 05, 2020. CTA of the neck June 13, 2021. TECHNIQUE: Helical axial images of the cervical spine were obtained without IV contrast. Sagittal and coronal reconstructions were viewed. Automated exposure control was utilized for the study. A dose lowering technique was utilized adhering to the principles of ALARA. FINDINGS: Alignment of the cervical spine is anatomic. Vertebral body heights are maintained. No acute cervical spine fracture or subluxation is present. There is no prevertebral edema. Facet joints are intact. Severe disc space narrowing at C5-C6 is noted. There is moderate disc space narrowing at C6-C7. There is moderate multilevel facet arthrosis. There has been no significant change in appearance of the cervical spine. IMPRESSION: No acute cervical spine fracture or subluxation. ACT 112: Negative or not required by law. Electronically signed by: Los Gunn M.D. 10/13/2022 3:[address] 10/13/22 14:31 CT OF THE CHEST WITH IV CONTRAST CLINICAL HISTORY: Trauma COMPARISON STUDY: Chest radiograph August 03, 2022. Chest CT August 05, 2020. TECHNIQUE: Following IV administration of 91 mL of Optiray, helical axial images of the chest were obtained. Sagittal and coronal reconstructions were viewed as well as maximal intensity projections on an independent 3-D workstation. Automated exposure control was utilized for the study. A dose lowering technique was utilized adhering to the principles of ALARA. FINDINGS: There is no evidence for traumatic injury to the thoracic aorta. T here are postoperative findings consistent with aortic valve replacement and repair of the ascending aorta. Postoperative appearance is unchanged with mild dilatation of the proximal ascending aorta. There is moderate cardiomegaly. Right atrial and ventricular dilatation is unchanged. There is no pericardial effusion. There is no pneumothorax or pleural effusion. There is no pulmonary contusion. Subpleural groundglass opacities favor atelectasis. No acute rib or thoracic spine fracture is right apical opacity is unchanged and represents scarring. The abdomen and pelvis CT will be reported separately. IMPRESSION: 1. No acute traumatic findings within the chest. 2. Stable postoperative findings consistent with aortic valve replacement and repair of the ascending aorta. ACT 112: Negative or not required by law. Electronically signed by: Los Gunn M.D. 10/13/2022 3:17 PM Hip/Pelvis X-Ray 10/13/22 14:33 XR hip LT 2V w pelvis CLINICAL HISTORY: pain fall COMPARISON: CT of the abdomen and pelvis August 03, 2022. FINDINGS: Incidental note is made of contrast within the bladder from recent contrast-enhanced CT. Note is made of an acute impacted nondisplaced subcapital left femoral neck fracture. No additional fractures are identified on this examination. Sacroiliac joints and symphysis pubis are intact. 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 IMPRESSION: Acute impacted nondisplaced subcapital left femoral neck fracture. ACT 112: Negative or not required by law. Electronically signed by: Los Gunn M.D. 10/13/2022 3:[address] 10/13/22 14:42 CT OF THE HEAD WITHOUT CONTRAST CLINICAL HISTORY: trauma fall pain COMPARISON STUDY: Head CT August 03, 2022. TECHNIQUE: Helical axial images of the head were obtained without IV contrast. Automated exposure control was utilized for the study. A dose lowering technique was utilized adhering to the principles of ALARA. FINDINGS: No acute intracranial hemorrhage, midline shift or mass effect is present. White matter hypodensities are unchanged and favor small vessel disease. The ventricular system is unremarkable. The basal cisterns are patent. No extra-axial collections are present. There are no findings to suggest acute dural sinus thrombosis or acute territorial infarct. No significant calvarial abnormalities are present. Visualized portions of the sinuses and mastoid air cells are clear. IMPRESSION: 1. No acute intracranial findings. 2. No acute calvarial fracture. ACT 112: Negative or not required by law. Electronically signed by: Los Gunn M.D. 10/13/2022 3:08 PM Hip X-Ray 10/13/22 20:04 XR hip LT 1V CLINICAL HISTORY: need cross-table lateral of left hip for fracture TECHNIQUE: 1 views of the left hip were obtained. Comparison: Comparison is made to hip radiographs 10/13/2022 FINDINGS/IMPRESSION: Exam is highly limited by underpenetration. There is suggestion of a fracture of the left hip. ACT 112: Negative or not required by law. Electronically signed by: Jose Curry M.D. 10/14/2022 7:13 AM Hip MRI 10/14/22 07:18 MR hip LT wo con CLINICAL HISTORY: 82 years-old Male with Assess for hip fracture. DO NOT need contrast. Acute left femoral fracture COMPARISON: Pelvis and left hip radiographs and CT abdomen and pelvis 10/13/2022 TECHNIQUE: Multiplanar, multi sequence MRI of the left hip was performed without intravenous contrast. FINDINGS: LABRUM: There is degeneration of the tate with likely chronic bilateral tearing. BONE MARROW: No dislocation or avascular necrosis. Unchanged alignment of the acute and impacted subcapital/transcervical left femoral fracture with moderate associated marrow edema. There is at least 1 cm impaction. Unchanged mild angulation. BURSAE: There is no evidence for iliopsoas or trochanteric bursitis. HIP JOINT: Mild to moderate osteoarthritis of the hips. There is no evidence for femoral-acetabular or ischiofemoral impingement syndrome. There is no joint effusion. No intraarticular loose body is evident. MUSCLES: Muscular signal and morphology is within normal limits. SCIATIC NERVE: The morphology and signal characteristics of the sciatic nerve appear normal. Subcutaneous contusion lateral to the left hip measures up to 6.6 x 3.8 x 2.4 cm with moderate adjacent posttraumatic subcutaneous edema. Gamboa catheter in place. Mild prostamegaly with BPH changes. Trace bilateral pino nt effusions, right greater than left. IMPRESSION: 1. Unchanged alignment of the acute mildly angulated and impacted subcapital left femoral fracture. 2. No dislocation or avascular necrosis. 3. Moderate sized lateral left hip subcutaneous contusion. ACT 112: Negative or not required by law. The above report was generated using voice recognition software. It may contain grammatical, syntax or spelling errors. Electronically signed by: Minh Lorenzo M.D. 10/14/2022 11:16 AM Coding Level of Care Code 94759 SUB INP/OBS CARE 2/35MIN Diagnoses Fracture of femoral neck, left, closed S72.002A Fall W19.XXXA Encounter type: initial encounter Hyponatremia E87.1 Hypertension I10 Dementia F03.90 Incomplete bladder emptying R33.9 (2) Fall Encounter type: initial encounter Qualified Code(s): W19.XXXA - Unspecified fall, initial encounter
--- NOTE | 2022-10-14 11:19 | Magnetic Resonance Report ---
MR hip LT wo con CLINICAL HISTORY: 82 years-old Male with Assess for hip fracture. DO NOT need contrast. Acute left femoral fracture COMPARISON: Pelvis and left hip radiographs and CT abdomen and pelvis 10/13/2022 TECHNIQUE: Multiplanar, multi sequence MRI of the left hip was performed without intravenous contrast . FINDINGS: LABRUM: There is degeneration of the tate with likely chronic bilateral tearing. BONE MARROW: No dislocation or avascular necrosis. Unchanged alignment of the acute and impacted sub capital/transcervical left femoral fracture with moderate associated marrow edema. There is at least 1 cm impaction. Unchanged mild angulation. BURSAE: There is no evidence for iliopsoas or trochanteric bursitis. HIP JOINT: Mild to moderate osteoarthritis of the hips. There is no evidence for femoral-acetabular or ischiofemoral impingement syndrome. There is no joint effusion. No intraarticular loose body is evident. MUSCLES: Muscular signal and morphology is within normal limits. SCIATIC NERVE: The morphology and signal characteristics of the sciatic nerve appear normal. Subcutaneous contusion lateral to the left hip measures up to 6.6 x 3.8 x 2.4 cm with moderate adjace nt posttraumatic subcutaneous edema. Gamboa catheter in place. Mild prostamegaly with BPH changes. Trace bilateral joint effusions, right g reater than left. IMPRESSION: 1. Unchanged alignment of the acute mildly angulated and impacted subcapital left femoral fracture. 2. No dislocation or avascular necrosis. 3. Moderate sized lateral left hip subcutaneous contusion. ACT 112: Negative or not required by law. The above report was generated using voice recognition software. It may contain grammatical, syntax o r spelling errors. Electronically signed by: Minh Lorenzo M.D. 10/14/2022 11:16 AM
--- NOTE | 2022-10-14 12:06 | Orthopedic Progress Note ---
Date of Service October 14, 2022 Assessment & Plan (1) Fracture of femoral neck, left, closed: I discussed the diagnosis and treatment options with him and his family at bedside. Due to some of the displacement of the fracture I recommended a left hip hemiarthroplasty. He and his family understand the risk, benefits, and alternatives to procedure elected proceed. Questions were answered at bedside and consents were signed. Time was spent preoperative fusion postoperative rotations. The decision was made for surgery. We will proceed with the procedure later today. Arcelia Parker was seen and examined at bedside. He had his MRI earlier today. His fami ly is with him at bedside.. Review of Systems All systems reviewed & are unremarkable except as noted in HPI & below. Physical Exam On physical examination of his left hip, he has some pain with logroll of his hip. Able to straight leg raise. Most of his pain is in his groin.. Results & Data Results & Data Laboratory Results . Diagnostic Findings MRI images of the left hip do show a mildly displaced left femoral neck fracture.. PG Care Time/CCT Total # of Minutes Spent Total Time Spent with Patient: Total time spent is greater than 50% in coordination of care (as documented) at patient's floor/unit and/or counseling patient: Coding Level of Care Code 86219 SUB INP/OBS CARE 3/50MIN (57 - DECISION FOR SURGERY) Diagnoses Fracture of femoral neck, left, closed S72.002A
[2022-10-14] MEDS ORDERED: ATROPINE SULFATE 0.1 MG/ML 10ML SYR IV PRN (12:17)
[2022-10-14] MEDS ORDERED: ONDANSETRON INJ 2 MG/ML 2 ML VIAL IV PRN (12:17)
[2022-10-14] MEDS ORDERED: fentaNYL citrate PF 100 MCG/2 ML VIAL IV PRN (12:17)
[2022-10-14] MEDS ORDERED: ePHEDrine sulfate 50 MG/ML AMP IV PRN (12:17)
[2022-10-14] MEDS ORDERED: BUPIVACAINE 0.5 % 5 MG/1 ML PF 10ML VIAL ONE (12:21)
[2022-10-14] MEDS ORDERED: KETAMINE 50 MG/5 ML SYRINGE ONE (12:27)
[2022-10-14] MEDS ORDERED: ceFAZolin 2,000 MG/15 ML IV PUSH IV ONE (12:41)
[2022-10-14] MEDS ORDERED: ceFAZolin 2000MG 2,000 MG/15 ML SYR IV ONE (12:43)
[2022-10-14] MEDS ORDERED: PROPOFOL IV EMULSION 10 MG/ML 20 ML VIAL IV ONE ×2 (13:15→14:09)
[2022-10-14] MEDS ORDERED: ONDANSETRON INJ 2 MG/ML 2 ML VIAL ONE (14:09)
[2022-10-14] MEDS ORDERED: LIDOCAINE 2% 2 ML VIAL/AMP(20MG/ML) INFIL ONE (14:09)
--- NOTE | 2022-10-14 14:14 | Operative Report ---
PG Post Operative Report Pre & Post Diagnosis Operation Date: 10/14/22 13:35 Pre-Op Diagnosis: Displaced left femoral neck fracture Post-Op Diagnosis: Displaced left femoral neck fracture I identified the patient and participated in the time-out.: Yes Procedure Operation Date: 10/14/22 13:35 Actual Procedures p Left Anterior Hemiarthroplasty, Cemented(Left) - Jordan Faria DO Surgeon Jordan Faria DO Floor Cleaner Jordan Vaca PA-C Estimated Blood Loss 200 Findings Consistent with Post-Op Diagnosis Specimens Left femoral head Description of Procedure On October 14, 2022 Keith was brought down from his hospital room to the preoperative holding area. The operative extremity identified and signed. Is given a preoperative antibiotic and a spinal anesthetic. He seen back the operating room and laid on the table in supine position. He was given basic sedation. The left hip was then brought out to a purist leg positioner. The left hip was then prepped and draped in sterile fashion. A timeout was done. The patient and the operative extremity was properly identified. An anterior approach was used. Dissection was taken down through the fascia. The rectus was retracted anteriorly and the tensor was retracted laterally. The circumflex vessels were ligated. The hip capsule was exposed. The hip capsule was then incised and tagged. The femoral neck was then exposed. The femoral neck was then resected. The head and neck were then removed. The acetabulum was exposed. Time was spent removing any torn labrum. The femoral head measured to be 53 mm. The proximal femur was then exposed. Sequential broaching up to a size 13 broach was done. A 28 mm +7 head was then placed on a standard neck and a 53 mm shell was placed over the head. The hip was then reduced. Fluoroscopic images showed near anatomic alignment. I was happy with the overall stability. The hip was then dislocated. The trials were removed. The final size 12 [employer] LDFX smooth stem was then cemented in place with Palacos cement. Once cement had hardened a 28 mm +7 head was then impacted onto the femoral stem. A 53 mm shell was impacted on the humeral head. The hip was then reduced. Final fluoroscopic images showed near anatomic alignment. The wound was then irrigated. The capsule was closed with #1 Vicryl suture. The fascia was closed with #0 PDS. The deep subcuticular layer was then closed with 2-0 Vicryl. Skin was closed with 3-0 Vicryl and storm. He was then placed in a Silverlon dressing. He was then transferred to a hospital bed and taken to the postanesthesia care unit in stable condition. He tolerated the procedure well. Jordan Vaca PA-C, was present for the entire procedure. He was critical for patient positioning, prepping, draping, retraction exposure, wound closure and application of sterile dressing. I attest to the content of the Intraoperative Record and any orders documented therein. Any exceptions are noted below.
--- NOTE | 2022-10-14 15:06 | Fluoroscopy Report ---
FL hip LT 1V CLINICAL HISTORY: LT ANTERIORacute fracture of the left hip COMPARISON STUDY: MRI left hip with same day FLUOROSCOPY TIME: 6.1 seconds FLUOROSCOPY IMAGES: 1 EXPOSURE DOSE: 0.5344 mGy Air Kerma FINDINGS: Left hip arthroplasty demonstrates satisfactory alignment. No acute fracture identified. Ex pected postoperative soft tissue swelling with deep tissue air. IMPRESSION: Fluoroscopic assistance as above. ACT 112: Negative or not required by law. Electronically signed by: Minh Lorenzo M.D. 10/14/2022 3:05 PM
--- NOTE | 2022-10-14 15:09 | Anesthesiology Progress Note ---
Date of Service October 14, 2022 Anesthesia Post Procedure Vital Signs Vital Signs: Temp Pulse Pulse Pulse Resp BP BP 10/14/22 15:05 36.4 C L 55 L 15 150/94 H 10/14/22 14:55 54 L 15 142/80 H 10/14/22 14:45 56 L 14 153/87 H 10/14/22 14:35 55 L 10 L 140/92 10/14/22 14:25 36.2 C L 60 16 125/85 10/14/22 12:10 36.6 C 66 18 146/93 H 10/14/22 07:30 10/14/22 08:00 10/14/22 07:42 36.6 C 70 16 159/84 H 10/13/22 19:40 10/13/22 20:51 10/13/22 20:12 36.8 C 75 16 161/102 H 10/13/22 17:50 10/13/22 17:50 36.4 C L 70 14 175/93 H 10/13/22 17:21 74 20 175/108 H 10/13/22 16:15 74 18 10/13/22 16:15 180/122 H 10/13/22 16:00 72 15 10/13/22 16:00 179/106 H 10/13/22 15:45 72 18 10/13/22 15:45 181/105 H 10/13/22 15:31 75 18 10/13/22 15:31 192/101 H 10/13/22 15:30 72 18 10/13/22 15:15 65 15 10/13/22 15:15 173/104 H Pulse Ox Pulse Ox O2 Del Method O2 Del Method O2 Flow Rate 10/14/22 15:05 95 Room Air 10/14/22 14:55 98 Room Air 10/14/22 14:45 99 Oxymask 4 10/14/22 14:35 97 Oxymask 10 10/14/22 14:25 97 Oxymask 10 10/14/22 12:10 94 Room Air 10/14/22 07:30 Room Air 10/14/22 08:00 93 Room Air 10/14/22 07:42 93 Room Air 10/13/22 19:40 Room Air 10/13/22 20:51 94 Room Air 10/13/22 20:12 94 Room Air 10/13/22 17:50 Room Air 10/13/22 17:50 94 Room Air 10/13/22 17:21 95 Room Air 10/13/22 16:15 95 10/13/22 16:15 10/13/22 16:00 93 10/13/22 16:00 10/13/22 15:45 93 10/13/22 15:45 10/13/22 15:31 94 10/13/22 15:31 10/13/22 15:30 95 10/13/22 15:15 93 10/13/22 15:15 Pain Intensity Left Hip: Pain Intensity: 4 Transfer of Care Handoff Completed per policy Notes Mental Status: alert / awake / arousable and participated in evaluation Patient Amnestic to Procedure: Yes Nausea / Vomiting: adequately controlled Pain: adequately controlled Airway Patency, RR, SpO2: stable & adequate BP & HR: stable & adequate Hydration State: stable & adequate Neuraxial Anesthesia: was administered and sensory block is resolving Anesthetic Complications: no major complications apparent and Pt Satisfied with anesthetic care
--- NOTE | 2022-10-14 16:41 | XRay Report ---
XR hip 1V LT w pelvis HISTORY: 82 years-old Male PACU - Post Surgical left hip arthroplasty COMPARISON: Left hip radiograph 10/13/2022 TECHNIQUE: AP view the pelvis with 2 views of the left hip FINDINGS: Left hip arthroplasty demonstrates satisfactory alignment. Overlying skin storm are present along w ith expected postoperative soft tissue swelling with deep tissue air. Gamboa catheter. 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 Herniorrhaphy coils. IMPRESSION: Left hip total joint arthroplasty with expected postoperative changes. ACT 112: Negative or not required by law. The above report was generated using voice recognition software. It may contain grammatical, syntax o r spelling errors. Electronically signed by: Minh Lorenzo M.D. 10/14/2022 4:40 PM
[2022-10-14] MEDS: DOCUSATE SODIUM/SENNA 50/8.6MG TAB PO SCH (20:47)
[2022-10-14] MEDS: ceFAZolin 2000MG 2,000 MG/15 ML SYR IV SCH (20:51)
[2022-10-14] MEDS: MoRPHine SULFATE 2 MG/ML CARP IV PRN (21:57)
[2022-10-14] MEDS: ASPIRIN 81 MG ECTAB PO SCH (21:57)
[2022-10-15] MEDS: MoRPHine SULFATE 2 MG/ML CARP IV PRN ×2 (01:25→05:09)
[2022-10-15] MEDS: ACETAMINOPHEN 325 MG TAB PO SCH ×4 (02:54→20:12)
[2022-10-15] MEDS: ceFAZolin 2000MG 2,000 MG/15 ML SYR IV SCH (04:43)
--- NOTE | 2022-10-15 06:42 | Orthopedic Progress Note ---
Date of Service October 15, 2022 Assessment & Plan (1) Fracture of femoral neck, left, closed: Keith had a left hip hemiarthroplasty yesterday. The surgery went well. He can be up and ambulating on his left hip. He will be seen by physical therapy for ambulation and range of motion exercises. He is dealing with a lot of confusion right now. We will see how he does throughout the next few days. He is orthopedically stable for discharge when medically ready. Full orthopedic discharge instructions were placed in the discharge summary. Subjective Keith was seen and examined at bedside this morning. He seemed fairly confused. He was half getting out of bed when I came into the room. He did not seem to be in much pain.. Review of Systems All systems reviewed & are unremarkable except as noted in HPI & below. Physical Exam On physical examination of the left hip, the dressing was clean and dry. His leg lengths looked about equal. I was unable to do a neurologic examination.. Results & Data Results & Data Laboratory Results . Diagnostic Findings . PG Care Time/CCT Total # of Minutes Spent Total Time Spent with Patient: Total time spent is greater than 50% in coordination of care (as documented) at patient's floor/unit and/or counseling patient: Coding Level of Care Code 30816 Post Operative Follow-Up Diagnoses Fracture of femoral neck, left, closed S72.002A
[2022-10-15 07:54] LABS: Basophils # (auto) 0.05 K/uL (0-0.2); Basophils % (auto) 0.5 %; Eosinophils # (auto) 0.04 K/uL (0-0.50); Eosinophils % (auto) 0.4 %; Hematocrit (blood only) 35.7 % (42.0-52.0); Hemoglobin 12.7 g/dl (14.0-18.0); Immature Granulocytes # (auto) 0.04 K/uL (0.01-0.20); Immature Granulocytes % (auto) 0.4 %; Lymphocytes % (auto) 8.8 %; Mean Corpuscular Hemoglobin 31.4 pg (25.0-34.0); Mean Corpuscular Hgb Conc 35.6 g/dL (32.0-36.0); Mean Corpuscular Volume 88.4 fL (80.0-100.0); Mean Platelet Volume 9.6 fL (9.4-12.4); Monocytes % (auto) 9.8 %; Neutrophils # (auto) 8.21 K/uL (1.40-6.50); Neutrophils % (auto) 80.1 %; Platelet Count 141 K/uL (130-400); RDW Coefficient of Variation 13.4 % (11.5-14.5); RDW Standard Deviation 43.8 fL (36.4-46.3); Red Blood Count 4.04 M/uL (4.70-6.10); White Blood Count 10.24 K/ul (4.8-10.8)
[2022-10-15 08:06] LABS: Albumin Globulin Ratio 1.4 (0.9-2); Albumin Level 3.4 gm/dl (3.4-5.0); BUN Creatinine Ratio 16.7 (10-20); Calcium 8.3 mg/dl (8.6-10.3); Est GFR (African American) 97.4 ml/min; Est GFR (Non-African American) 84.1 ml/min; Globulin 2.4 gm/dl (2.5-4.0); Magnesium 1.6 mg/dl (1.7-2.4); Potassium 4.3 mmol/L (3.5-5.1); Total Protein 5.8 gm/dl (6.0-8.3)
[2022-10-15 08:12] LABS: Prothrombin Time 11.4 Seconds (9.0-12.0)
[2022-10-15] MEDS: MIRABEGRON ER 25 MG TAB PO SCH (08:28)
[2022-10-15] MEDS: ASPIRIN 81 MG ECTAB PO SCH ×2 (08:28→20:11)
[2022-10-15] MEDS: FOLIC ACID 1 MG TAB PO SCH (08:28)
--- NOTE | 2022-10-15 09:24 | Hospitalist Progress Note ---
Date of Service October 15, 2022 Assessment & Plan (1) Fracture of femoral neck, left, closed: Plan: -Currently stable -Sustained a mechanical fall while raking leaves outside 10/13, not on anticoagulation -Ortho consulted, Dr. Cain -left hip hemiarthroplasty 10/14 -IV Morphine was helping with pain but was making patient more confused and lethargic, discontinued and changed to oral Oxy 5mg po q 6H prn pain -continue with q6h PO tylenol scheduled -Hold chemical DVT PPX for now with his hx of hematuria and left thigh contusion today on CT -BL SCD's for DVT PPX (2) Fall: Plan: -Mechanical fall sustained while losing his balance raking leaves 10/13 -No symptoms prior to his fall to suggest another etiology -Extensive trauma workup in the ED only positive for left hip fx and left thigh contusion -Fall precautions ordered, bedrest for now -PT/OT following and suggest inpatient rehab -CM and patient's working on placement (3) Hyponatremia: Plan: Chronic -Na 131 (134) (131) -repeat AM labs -S/P 1L NSS in the ED (4) Hypertension: Plan: -Stable off antihypertensives; was initially elevated on ED arrival, likely due to pain -Monitor for now -Currently 105/71 (was 200s/120s) (5) Dementia: Plan: -Not currently on treatment -Will continue to monitor closely for delirium post-op as he has a history of severe delirium with anesthesia per his Daughter - Patient had increased confusion this AM that was likely multifactorial due to surgery/anesthesia/his baseline dementia/and possible hospital delirium - d/c IV morphine and added oral oxy as needed and will continue to monitor (6) Incomplete bladder emptying: Plan: -Continue chronic Gamboa, catheter care ordered Q-shift -UA was clean -Continue Myrbetriq (7) Anemia: Plan: Patient had a hgb drop from 14.1 to 12.7. I feel the drop is multifactorial. Including surgical blood loss (EBL 200), dilational, and also he has a contusion from the fall. Patient has no signs of any active bleeding. No melena, hematochezia, hematemesis. Will repeat CBC in the AM and monitor stools for any evidence of active GI bleeding . Plan The patient was discussed with Dr. Mayur ZAMUDIO working on referral to [facility] Admission and Anticipated Discharge Date Admission Date: October 13, 2022 Supervising Physician Co-Signing Physician Notes PA Supervision Note: I did not personally see or examine this patient. I verified all brandon points and agree with CRISTIAN Cheng with the following exceptions and/or additions:Anemia, multifactorial, including possible blood loss from surgery and fracture, but also received IVF so some dilutional element certainly plausible. CBC in AM. Tanner e increased confusion today, expected given Hx of same with previous surgeries, did however adjust medications away from IV opiates in favor of oral options. Continue scheduled Tylenol. HypoNa is chronic and stable. Subjective Post op day #1 Left hip arthroplasty. Patient had spinal and MAC sedation. He had some increased confusion post operatively. He was seen late morning rounds and appears to have improved somewhat per patient's daughter and nursing. He is alert and oriented x 3 currently. His morphine was dicontinued early this AM and added Oxycodone 5mg q6H as needed for pain. He is sitting up in bed eating lunch (diet changed from minced and moist to regular) per patient's daughter Review of Systems Constitutional: + fatigue; no fever and no chills Respiratory: no cough, no chest congestion and no dyspnea Cardiovascular: no chest pain, no dyspnea, no lightheadedness and no calf pain Gastrointestinal: no abdominal pain, no bloating, no nausea, no vomiting and no change in bowel habits Musculoskeletal: mechanical fall 10/13 currently denies any pain Integumentary: skin abrasions on left hand secondary to fall Psychiatric: Hx dementia and hx of problems with paranoia after anesthesia Endocrine: + fatigue; no polydipsia, no polyphagia and no polyuria Physical Exam Constitutional: WD/WN, vitals as above Neck: trachea midline, no thyromegaly Respiratory: normal respiratory effort, lungs clear to auscultation Cardiovascular: RRR, no murmur, no edema Extremities: normal capillary refill; no calf tenderness and no edema Gastrointestinal (Abdomen): normal bowel sounds, soft, nontender, no hepatosplenomegaly Psychiatric: flat affect but alert and oriented to person, place and year Results & Data Results & Data Vital Signs (Past 12 Hours) Vital Signs Temp Pulse Resp BP BP Pulse Ox O2 Del Method 10/15/22 08:14 36.6 C 94 H 16 105/71 92 Room Air 10/15/22 03:30 60 16 128/82 96 Room Air 10/14/22 23:01 158/80 H Laboratory Results Abnormal lab results 10/15/22 10/15/22 Range/Units 07:27 07:27 RBC 4.04 L (4.70-6.10) M/uL Hgb 12.7 L (14.0-18.0) g/dl Hct 35.7 L (42.0-52.0) % Neut # (Auto) 8.21 H (1.40-6.50) K/uL Lymph # (Auto) 0.90 L (1.2-3.4) K/uL Gem # (Auto) 1.00 H (0.11-0.59) K/uL Sodium 131 L (136-145) mmol/L Glucose 122 H (70-99(Fasting)) mg/dl Calcium 8.3 L (8.6-10.3) mg/dl Magnesium 1.6 L (1.7-2.4) mg/dl Total Protein 5.8 L (6.0-8.3) gm/dl Globulin 2.4 L (2.5-4.0) gm/dl PG Care Time/CCT Total # of Minutes Spent Total Time Spent with Patient: Total time spent is greater than 50% in coordination of care (as documented) at patient's floor/unit and/or counseling patient: Coding Level of Care Code 78579 SUB INP/OBS CARE 2/35MIN Diagnoses Fracture of femoral neck, left, closed S72.002A Fall W19.XXXA Encounter type: initial encounter Hyponatremia E87.1 Hypertension I10 Dementia F03.90 Incomplete bladder emptying R33.9 Anemia D64.9 (2) Fall Encounter type: initial encounter Qualified Code(s): W19.XXXA - Unspecified fall, initial encounter
[2022-10-15] MEDS ORDERED: MAGNESIUM SULFATE / D5W 1 GM/100 ML BAG IV ONE (11:23)
[2022-10-15] MEDS: DOCUSATE SODIUM/SENNA 50/8.6MG TAB PO SCH (20:12)
--- NOTE | 2022-10-15 21:58 | Electrocardiogram Report ---
Test Reason : Blood Pressure : / mmHG Vent. Rate : 077 BPM Atrial Rate : 077 BPM P-R Int : 224 ms QRS Dur : 086 ms QT Int : 368 ms P-R-T Axes : 060 -20 047 degrees QTc Int : 416 ms Sinus rhythm with 1st degree A-V block Premature atrial complexes Septal infarct (cited on or before 16-OCT-2020) Abnormal ECG When compared with ECG of 03-AUG-2022 18:01, SD interval has increased Confirmed by Luis A Ang ([id number]) on 10/15/2022 9:58:10 PM Referred By: REFERRED SELF Confirmed By:Luis A Ang
[2022-10-15] MEDS: oxyCODONE HCL IR 5 MG TAB (IMMEDIATE RELEASE) PO PRN (22:05)
[2022-10-16] MEDS: ACETAMINOPHEN 325 MG TAB PO SCH ×4 (03:22→20:05)
--- NOTE | 2022-10-16 06:59 | Orthopedic Progress Note ---
Date of Service October 16, 2022 Assessment & Plan (1) Fracture of femoral neck, left, closed: He looks a little bit better today. We will see how he does today with physical therapy. We will place him on Eliquis 2.5 mg twice a day for DVT prophylaxis. He will continue this for 6 weeks. He can be weightbearing as tolerated on the left hip. He is orthopedically stable for discharge when medically ready. Full orthopedic discharge instructions were placed in the discharge summary. Arcelia Parker was seen examined bedside this morning. Overall he looks a little bit better today. He did not do very well yesterday with physical therapy. He had no acute events overnight.. Review of Systems All systems reviewed & are unremarkable except as noted in HPI & below. Physical Exam On physical examination of the left hip, the dressing is clean and dry. He is a little bit more coherent today. His leg lengths are equal.. Results & Data Results & Data Laboratory Results . Diagnostic Findings . PG Care Time/CCT Total # of Minutes Spent Total Time Spent with Patient: Total time spent is greater than 50% in coordination of care (as documented) at patient's floor/unit and/or counseling patient: Coding Level of Care Code 70589 Post Operative Follow-Up Diagnoses Fracture of femoral neck, left, closed S72.002A
[2022-10-16 07:31] LABS: Basophils # (auto) 0.07 K/uL (0-0.2); Basophils % (auto) 0.7 %; Eosinophils # (auto) 0.36 K/uL (0-0.50); Eosinophils % (auto) 3.6 %; Immature Granulocytes # (auto) 0.03 K/uL (0.01-0.20); Immature Granulocytes % (auto) 0.3 %; Lymphocytes # (auto) 1.89 K/uL (1.2-3.4); Mean Corpuscular Hemoglobin 31.4 pg (25.0-34.0); Mean Corpuscular Hgb Conc 35.5 g/dL (32.0-36.0); Mean Corpuscular Volume 88.6 fL (80.0-100.0); Mean Platelet Volume 9.9 fL (9.4-12.4); Monocytes # (auto) 1.47 K/uL (0.11-0.59); Monocytes % (auto) 14.8 %; Neutrophils # (auto) 6.14 K/uL (1.40-6.50); Neutrophils % (auto) 61.6 %; Platelet Count 117 K/uL (130-400); RDW Coefficient of Variation 13.7 % (11.5-14.5); RDW Standard Deviation 44.6 fL (36.4-46.3); White Blood Count 9.96 K/ul (4.8-10.8)
[2022-10-16 07:49] LABS: Albumin Globulin Ratio 1.4 (0.9-2); Albumin Level 3.2 gm/dl (3.4-5.0); BUN Creatinine Ratio 21.5 (10-20); Bilirubin,Total 1.1 mg/dl (0.2-1.0); Calcium 8.2 mg/dl (8.6-10.3); Creatinine Clr Calc Pharmacy 53.2 ml/min; Est GFR (African American) 74.5 ml/min; Est GFR (Non-African American) 64.3 ml/min; Globulin 2.3 gm/dl (2.5-4.0); Magnesium 1.9 mg/dl (1.7-2.4); Total Protein 5.5 gm/dl (6.0-8.3)
[2022-10-16] MEDS: FOLIC ACID 1 MG TAB PO SCH (08:23)
[2022-10-16] MEDS: MIRABEGRON ER 25 MG TAB PO SCH (08:23)
[2022-10-16] MEDS: APIXABAN 2.5 MG TAB PO SCH ×2 (08:24→20:05)
--- NOTE | 2022-10-16 13:14 | Hospitalist Progress Note ---
Date of Service October 16, 2022 Assessment & Plan (1) Fracture of femoral neck, left, closed: Plan: -Currently stable -Sustained a mechanical fall while raking leaves outside 10/13, not on anticoagulation -Ortho consulted, Dr. Cain -left hip hemiarthroplasty 10/14 -IV Morphine was helping with pain but was making patient more confused and lethargic, discontinued and changed to oral Oxy 5mg po q 6H prn pain -continue with q6h PO tylenol scheduled -Hold chemical DVT PPX for now with his hx of hematuria and left thigh contusion today on CT -Continue BL SCD's for DVT PPX (2) Fall: Plan: -Mechanical fall sustained while losing his balance raking leaves 10/13 -No symptoms prior to his fall to suggest another etiology -Extensive trauma workup in the ED only positive for left hip fx and left thigh contusion -Fall precautions ordered, bedrest for now -PT/OT following and suggest inpatient rehab -CM and patient's working on placement ([facility]) (3) Hyponatremia: Plan: Chronic -Continue to monitor -repeat AM labs (4) Hypertension: Plan: -Stable off antihypertensives; was initially elevated on ED arrival, likely due to pain -Monitor for now -Currently 105/70 (was 200s/120s) (5) Dementia: Plan: -Not currently on treatment -Will continue to monitor closely for delirium post-op as he has a history of severe delirium with anesthesia per his Daughter -likely multifactorial due to surgery/anesthesia/his baseline dementia/and possible hospital delirium -d/c'ed IV morphine and added oral oxy as needed and will continue to monitor (6) Incomplete bladder emptying: Plan: -Continue chronic Gamboa, catheter care ordered Q-shift -UA was clean -Continue Myrbetriq (7) Anemia: Plan: -Patient had a hgb drop from 14.1 to 11.0. -I feel the drop is multifactorial. Including acute surgical blood loss (EBL 200), dilutional, and also he has a contusion from the fall. -Patient has no signs of any active bleeding. No melena, hematochezia, hematemesis. -Will repeat CBC in the AM and monitor stools for any evidence of active GI bleeding. -No BM - added Metamucil (per takes this daily at home) Plan The patient was discussed with Dr. Mayur ZAMUDIO working on referral to [facility] Admission and Anticipated Discharge Date Admission Date: October 13, 2022 Supervising Physician Co-Signing Physician Notes PA Supervision Note: I did not personally see or examine this patient. I verified all brandon points and agree with CRISTIAN Cheng with the following exceptions and/or additions: Anemia, multifactorial, including acute blood loss anemia from surgery and fracture, but also received IVF so some dilutional element certainly plausible. Job is not unexpected given injuries and surgery. Confusion improving postop and with cessation of IV opiates. Continue scheduled Tylenol. HypoNa is chronic, have added urine and serum osmolality and urine sodium to morning labs. Subjective Post op day #2 Left hip arthroplasty. He had some increased confusion post operatively. He is sitting up in bed eating lunch with his at his bedside. He had a great morning and was very alert and then had PT and after he is more fatigued and confused. He is alert to person and place currently. Family changed their mind from [facility] to [facility] and CM is working on approval Review of Systems Constitutional: + fatigue; no fever and no chills Respiratory: no cough, no chest congestion and no dyspnea Cardiovascular: no chest pain, no dyspnea, no lightheadedness and no calf pain Gastrointestinal: no abdominal pain, no bloating, no nausea, no vomiting and no change in bowel habits Musculoskeletal: mechanical fall 10/13 currently denies any pain Integumentary: skin abrasions on left hand secondary to fall Psychiatric: Hx dementia and hx of problems with paranoia after anesthesia Endocrine: + fatigue; no polydipsia, no polyphagia and no polyuria Physical Exam Constitutional: WD/WN, vitals as above Neck: trachea midline, no thyromegaly Respiratory: normal respiratory effort, lungs clear to auscultation Cardiovascular: RRR, no murmur, no edema Extremities: normal capillary refill; no calf tenderness and no edema Gastrointestinal (Abdomen): normal bowel sounds, soft, nontender, no hepatosplenomegaly Psychiatric: Orientation: alert, oriented to person and oriented to place Eye Contact: + fair eye contact Affect: + flat affect Results & Data Results & Data Vital Signs (Past 12 Hours) Vital Signs Temp Resp BP Pulse Ox O2 Del Method 10/16/22 08:00 Room Air 10/16/22 07:35 36.7 C 15 105/70 93 Room Air Laboratory Results Abnormal lab results 10/16/22 10/16/22 Range/Units 07:11 07:11 RBC 3.50 L (4.70-6.10) M/uL Hgb 11.0 L (14.0-18.0) g/dl Hct 31.0 L (42.0-52.0) % Plt Count 117 L (130-400) K/uL [place] # (Auto) 1.47 H (0.11-0.59) K/uL Sodium 129 L (136-145) mmol/L BUN/Creatinine Ratio 21.5 H (10-20) Calcium 8.2 L (8.6-10.3) mg/dl Total Bilirubin 1.1 H (0.2-1.0) mg/dl Total Protein 5.5 L (6.0-8.3) gm/dl Albumin 3.2 L (3.4-5.0) gm/dl Globulin 2.3 L (2.5-4.0) gm/dl PG Care Time/CCT Total # of Minutes Spent Total Time Spent with Patient: Total time spent is greater than 50% in coordination of care (as documented) at patient's floor/unit and/or counseling patient: Coding Level of Care Code 63267 SUB INP/OBS CARE 235MIN Diagnoses Fracture of femoral neck, left, closed S72.002A Fall W19.XXXA Encounter type: initial encounter Hyponatremia E87.1 Hypertension I10 Dementia F03.90 Incomplete bladder emptying R33.9 Anemia D64.9 (2) Fall Encounter type: initial encounter Qualified Code(s): W19.XXXA - Unspecified fall, initial encounter
[2022-10-16] MEDS: PSYLLIUM or GUAR GUM FIBER POWDER PACKET PO SCH (14:50)
[2022-10-16] MEDS: DOCUSATE SODIUM/SENNA 50/8.6MG TAB PO SCH (20:06)
[2022-10-16] MEDS: oxyCODONE HCL IR 5 MG TAB (IMMEDIATE RELEASE) PO PRN (23:05)
[2022-10-17] MEDS: ACETAMINOPHEN 325 MG TAB PO SCH ×4 (02:32→20:12)
[2022-10-17 07:48] LABS: Hematocrit (blood only) 28.5 % (42.0-52.0); Mean Corpuscular Hemoglobin 31.5 pg (25.0-34.0); Mean Corpuscular Hgb Conc 35.1 g/dL (32.0-36.0); Mean Corpuscular Volume 89.9 fL (80.0-100.0); Mean Platelet Volume 10.4 fL (9.4-12.4); Platelet Count 138 K/uL (130-400); RDW Coefficient of Variation 13.8 % (11.5-14.5); RDW Standard Deviation 45.7 fL (36.4-46.3); Red Blood Count 3.17 M/uL (4.70-6.10); White Blood Count 9.66 K/ul (4.8-10.8)
--- NOTE | 2022-10-17 08:16 | Hospitalist Progress Note ---
Date of Service October 17, 2022 Assessment & Plan (1) Fracture of femoral neck, left, closed: Plan: -Sustained a mechanical fall while raking leaves outside 10/13, not on anticoagulation -Ortho consulted, s/p left hip hemiarthroplasty 10/[address] Cain -IV Morphine was helping with pain but was making patient more confused and lethargic, discontinued and changed to oral Oxy 5mg po q 6H prn pain, the patient is not having much pain -Continue scheduled Tylenol -Patient placed on Eliquis 2.5 mg twice daily for postoperative DVT prophylaxis by orthopedic provider -Ultimately awaiting placement, hopefully to [facility] per family request, for rehab before ultimate return home if able (2) Fall: Plan: -Mechanical fall sustained while losing his balance raking leaves 10/13 -No symptoms prior to his fall to suggest another etiology -Extensive trauma workup in the ED only positive for left hip fx and left thigh contusion -Fall precautions -CM and patient's working on placement ([facility]) for inpatient rehab (3) Acute blood loss anemia: Plan: -Patient had a hgb drop from 14.1 to 10.0 in the setting of Eliquis therapy for DVT prophylaxis, femoral fracture, and fracture repair -Patient has no signs of any active bleeding. No melena, hematochezia, hematemesis. (4) Hyponatremia: Plan: -Chronic, with urine osmolality lower than serum osmolality, suggesting element of SIADH -1500 cc fluid restriction (5) Hypertension: Plan: -Stable off antihypertensives; was initially elevated on ED arrival, likely due to pain -Monitor for now, BP normotensive in the 110s systolic (6) Dementia: Plan: -Not currently on treatment -With hospital related delirium, which is occurred on past hospitalizations and with previous surgeries -Delirium precautions, melatonin for sleep to hopefully augment sleep-wake cycles (7) Incomplete bladder emptying: Plan: -Continue chronic Gamboa, catheter care ordered Q-shift -UA without evidence of infection -Continue Myrbetriq Plan Ultimate plan for discharge to [facility] once accepted and insurance authorization is completed. Do not anticipate any new medication needs save for Eliquis on discharge. Follow-up with orthopedics will be needed. Admission and Anticipated Discharge Date Admission Date: October 13, 2022 Subjective Patient without any acute events overnight. Does have intermittent confusion, worse in the afternoons, briefly redirectable then will sort of trail off. Denies chest pain or abdominal pain, trouble breathing, nausea. Denies leg pain at fracture area. Review of Systems Review of Systems: All systems reviewed & are unremarkable except as noted in Subjective Physical Exam Constitutional: WD/WN, vitals as above Respiratory: normal respiratory effort, lungs clear to auscultation Cardiovascular: RRR, no murmur, no edema Gastrointestinal (Abdomen): normal bowel sounds, soft, nontender, no hepatosplenomegaly Skin: no rashes, warm and dry Psychiatric: Alert and oriented to self and location, euthymic affect Results & Data Results & Data Vital Signs (Past 12 Hours) Vital Signs Temp Pulse Pulse Resp BP BP Pulse Ox 10/17/22 07:40 37.0 C 93 H 18 107/69 95 10/17/22 04:00 10/17/22 00:00 10/16/22 21:40 36.8 C 85 18 115/74 97 O2 Del Method O2 Del Method 10/17/22 07:40 Room Air 10/17/22 04:00 Room Air 10/17/22 00:00 Room Air 10/16/22 21:40 Room Air PG Care Time/CCT Total # of Minutes Spent Total Time Spent with Patient: Total time spent is greater than 50% in coordination of care (as documented) at patient's floor/unit and/or counseling patient: Coding Level of Care Code 64472 SUB INP/OBS CARE 3/50MIN Diagnoses Fracture of femoral neck, left, closed S72.002A Fall W19.XXXA Encounter type: initial encounter Acute blood loss anemia D62 Hyponatremia E87.1 Hypertension I10 Dementia F03.90 Incomplete bladder emptying R33.9 (2) Fall Encounter type: initial encounter Qualified Code(s): W19.XXXA - Unspecified fall, initial encounter
[2022-10-17 08:39] LABS: BUN Creatinine Ratio 20.5 (10-20); Calcium 8.5 mg/dl (8.6-10.3); Creatinine Clr Calc Pharmacy 64.7 ml/min; Est GFR (African American) 92.7 ml/min; Potassium 4.2 mmol/L (3.5-5.1)
[2022-10-17] MEDS: PSYLLIUM or GUAR GUM FIBER POWDER PACKET PO SCH (08:45)
[2022-10-17] MEDS: APIXABAN 2.5 MG TAB PO SCH ×2 (08:46→20:13)
[2022-10-17] MEDS: MIRABEGRON ER 25 MG TAB PO SCH (08:46)
[2022-10-17] MEDS: FOLIC ACID 1 MG TAB PO SCH (08:46)
[2022-10-17] MEDS ORDERED: bisacodyL 5 MG TABEC PO ONE (15:27)
[2022-10-17 19:33] LABS: Hematocrit (blood only) 27.5 % (42.0-52.0); Hemoglobin 9.8 g/dl (14.0-18.0)
[2022-10-17] MEDS: MELATONIN 3 MG TAB PO SCH (20:12)
[2022-10-17] MEDS: DOCUSATE SODIUM/SENNA 50/8.6MG TAB PO SCH (20:12)
[2022-10-18] MEDS: ACETAMINOPHEN 325 MG TAB PO SCH ×4 (02:00→20:15)
--- NOTE | 2022-10-18 08:21 | Hospitalist Progress Note ---
Date of Service October 18, 2022 Assessment & Plan (1) Fracture of femoral neck, left, closed: Plan: -Sustained a mechanical fall while raking leaves outside 10/13, not on anticoagulation -Ortho consulted, s/p left hip hemiarthroplasty 10/[address] Cain -IV Morphine was helping with pain but was making patient more confused and lethargic;changed to oral Oxy 5mg po q 6H prn pain (did order a nighttime dose this evening as daughter is concerned that pain is keeping him awake) -Continue scheduled Tylenol -Continue Eliquis 2.5 mg twice daily for postoperative DVT prophylaxis by orthopedic provider -Patient is medically stable for discharge at this point, awaiting bed at [facility] and insurance authorization (2) Fall: Plan: -Mechanical fall sustained while losing his balance raking leaves 10/13 -No symptoms prior to his fall to suggest another etiology -Extensive trauma workup in the ED only positive for left hip fx and left thigh contusion -Fall precautions - and patient's working on placement ([facility]) for inpatient rehab (3) Dementia: Plan: -Not currently on treatment -With hospital related delirium, which is occurred on past hospitalizations and with previous surgeries -Delirium precautions, melatonin for sleep to hopefully augment sleep-wake cycles -Have asked med staff to move patient to bed assignment with a window to assist with sleep-wake cycles (4) Hypertension: Plan: -Stable off antihypertensives; was initially elevated on ED arrival, likely due to pain -Monitor for now, BP normotensive in the 110s systolic (5) Acute blood loss anemia: Plan: -Patient had a hgb drop from 14.1 to 9.8 in the setting of Eliquis therapy for DVT prophylaxis, femoral fracture, and fracture repair -Patient has no signs of any active bleeding. No melena, hematochezia, hematemesis -Hgb stable over 48 hours (6) Hyponatremia: Plan: -Chronic, with urine osmolality lower than serum osmolality, suggesting element of SIADH -1500 cc fluid restriction (7) Incomplete bladder emptying: Plan: -Continue chronic [place], catheter care ordered Q-shift -UA without evidence of infection -Continue Myrbetriq (8) Constipation: Plan: Still no BM in last several days. If no BM by dinnertime have added enema as this could be contributing to delirium as well. Plan Ultimate plan for discharge to [facility] once accepted and insurance authorization is completed. Patient has been medically stable for discharge to rehab facility the last 48 hours. Do not anticipate any new medication needs save for Eliquis on discharge. Follow-up with orthopedics will be needed. Admission and Anticipated Discharge Date Admission Date: October 13, 2022 Subjective Overnight did not sleep well, kept trying to get out of bed, delirious. Today complains of some left hip pain. Daughter also reports still with no BM yet. Review of Systems Review of Systems: All systems reviewed & are unremarkable except as noted in Subjective Physical Exam Constitutional: WD/WN, vitals as above Respiratory: normal respiratory effort, lungs clear to auscultation Cardiovascular: RRR, no murmur, no edema Gastrointestinal (Abdomen): normal bowel sounds, soft, nontender, no hepatosplenomegaly Skin: no rashes, warm and dry Psychiatric: Alert and oriented to self, euthymic affect Results & Data Results & Data Vital Signs (Past 12 Hours) Vital Signs Temp Pulse Resp BP BP Pulse Ox O2 Del Method 10/18/22 07:44 96 Room Air 10/18/22 07:00 36.8 C 98 H 15 109/64 95 Room Air 10/17/22 23:16 36.7 C 89 18 126/74 94 Room Air PG Care Time/CCT Total # of Minutes Spent Total Time Spent with Patient: Total time spent is greater than 50% in coordination of care (as documented) at patient's floor/unit and/or counseling patient: Coding Level of Care Code 46742 SUB INP/OBS CARE 2/35MIN Diagnoses Fracture of femoral neck, left, closed S72.002A Fall W19.XXXA Encounter type: initial encounter Dementia F03.90 Hypertension I10 Acute blood loss anemia D62 Hyponatremia E87.1 Incomplete bladder emptying R33.9 Constipation K59.00 (2) Fall Encounter type: initial encounter Qualified Code(s): W19.XXXA - Unspecified fall, initial encounter
[2022-10-18] MEDS: PSYLLIUM or GUAR GUM FIBER POWDER PACKET PO SCH (08:56)
[2022-10-18] MEDS: FOLIC ACID 1 MG TAB PO SCH (08:57)
[2022-10-18] MEDS: MIRABEGRON ER 25 MG TAB PO SCH (08:57)
[2022-10-18 09:12] LABS: BUN Creatinine Ratio 20.5 (10-20); Calcium 8.4 mg/dl (8.6-10.3); Est GFR (African American) 97.4 ml/min; Est GFR (Non-African American) 84.1 ml/min
[2022-10-18] MEDS: APIXABAN 2.5 MG TAB PO SCH ×2 (10:12→21:18)
[2022-10-18] MEDS: oxyCODONE HCL IR 5 MG TAB (IMMEDIATE RELEASE) PO PRN (11:40)
[2022-10-18] MEDS ORDERED: SOD PHOSPHATE/SOD BIPHOSPHATE ENEMA 132 ML BTL PR ONE ×2 (14:00→17:00)
[2022-10-18] MEDS ORDERED: oxyCODONE HCL IR 5 MG TAB (IMMEDIATE RELEASE) PO ONE (21:00)
[2022-10-18] MEDS: MELATONIN 3 MG TAB PO SCH (21:18)
[2022-10-18] MEDS: DOCUSATE SODIUM/SENNA 50/8.6MG TAB PO SCH (21:18)
[2022-10-19] MEDS: ACETAMINOPHEN 325 MG TAB PO SCH ×2 (04:11→08:59)
[2022-10-19 08:22] LABS: Est GFR (African American) 100.1 ml/min; Est GFR (Non-African American) 86.4 ml/min
[2022-10-19] MEDS: APIXABAN 2.5 MG TAB PO SCH (08:58)
[2022-10-19] MEDS: MIRABEGRON ER 25 MG TAB PO SCH (08:59)
[2022-10-19] MEDS: PSYLLIUM or GUAR GUM FIBER POWDER PACKET PO SCH (08:59)
[2022-10-19] MEDS: FOLIC ACID 1 MG TAB PO SCH (08:59)
--- NOTE | 2022-10-19 09:01 | Discharge Summary ---
Discharge Summary Date of Service October 19, 2022 Notes For Next Care Provider Follow-up with orthopedics in 2 weeks from surgery day for staple removal, can remove dressing at 7 days postop Delirium precautions including room with sunlight, frequent reorientation, try to avoid lab draws and patient disturbance from hours of 10 PM to 6 AM Admission HPI Per Admitting Provider Keith Lopez is an 82-year-old male with chronic indwelling martinez, hematuria, dementia, BPPV, previous CVA, and FELIX who presented to the [facility] ED on 10/13/22 via EMS for an a fall and AMS. In the ED his vitals were noted for HTN of 200/121 otherwise stable. Labs including CBC, CMP, high sen trop, and covid-19 show a sodium of 133, otherwise are WNL. CT of the head, CT of the cervical spine, CT of the chest, CT of the thoracic spine, CT of the lumbar spine, and chest xray were negative for acute findings. Xray of the pelvis shows an Acute impacted nondisplaced subcapital left femoral neck fracture. CT of the abd/pelvis w/con confirmed the left hip fracture and also shows a left lateral thigh contusion. Prior to admission the patient was given a total of 1 mg IV morphine, 1 gm IV tylenol, and 1L NSS. At the time of the exam the patient was lying in bed in no acute distress with his and daughter sitting bedside, history was obtained from all. His states that they were both outside and the patient was raking leaves. The patient is typically supposed to use a walker with ambulation. His states that she went inside for a minute and when she came back out he was on the ground. The patient explains that he was raking leaves and over-extended himself. He started to lose his balance and ended up falling backwards. He is unsure if he lost consciousness but states that it would have only been for a short time if he did. He denies having dizziness, lightheadedness, chest pain, heart palpitations, or SOB prior to his fall. His only complaints at this time are his left hip pain and a mild headache. We discussed code status, the patient's and Daughter explain that the patient has a living will and is a DNR/DNI. His is currently his POA and if something happened to her they would want his daughter to make medical decisions for him. Please refer to Dr. Sutton's attestation for any changes to the treatment plan Admission Exam Per Admitting Provider General:In no acute distress, stated age, well-nourished, good hygiene HEENT:Normocephalic, atraumatic, no scleral icterus, pupils around round, symmetrical, and reactive to light, moist mucus membranes, trachea midline, no thyromegaly Chest/Pulm:No respiratory distress, symmetrical chest expansion, clear breath sounds throughout Cardiac:RRR, no murmurs noted Abdomen:Negative for ascites and bruising, normoactive bowel sounds, soft, non- tender to palpation throughout Musculoskeletal:No trauma or tenderness to palpation of the head, neck cervical spine, BL shoulders, chest, abd, and RLE.Patient with LLE currently minimally shortened and externally rotated, intact motor function and sensation in the BL feet Extremities:Radial, dorsalis pedis, and posterior tibial pulses are intact and symmetrical, no edema noted in the BL LE's Skin:Warm, dry, no rashes , lesions, or scars noted Neuro:Alert and oriented to person, month, year,no focal defects, CN II-XII tested and intact, no tremors noted Psych:No acute distress, calm and cooperative during the exam Principal Dx & Hospital Course #1 = Principal Diagnosis (1) Fracture of femoral neck, left, closed: -Sustained a mechanical fall while raking leaves outside 10/13, not on anticoagulation -Ortho consulted, s/p left hip hemiarthroplasty 10/[address] Cain -Continue oxycodone 5mg po q6h prn severe pain, also recommended dose at nighttime before bed as this helped with patient's sleep -Continue scheduled Tylenol -Continue Eliquis 2.5 mg twice daily for postoperative DVT prophylaxis by orthopedic provider x6 weeks -Patient is medically stable for discharge at this point, awaiting bed at [facility] and insurance authorization (2) Fall: -Mechanical fall sustained while losing his balance raking leaves 10/13 -No symptoms prior to his fall to suggest another etiology -Extensive trauma workup in the ED only positive for left hip fx and left thigh contusion -Fall precautions (3) Dementia: -Not currently on treatment -With hospital related delirium, which is occurred on past hospitalizations and with previous surgeries -Recommend bed assignment with good sunlight as this has benefited the patient greatly and promoted sleep/wake cycles, delirium precautions -Discussed that admission UA negative for signs of infection, no patient complaints of suprapubic pain/pressure, urine not cloudy, and patient more awake and alert with delirium precautions. Do not suspect UTI as cause of mentation changes (4) Hypertension: -Stable off antihypertensives; was initially elevated on ED arrival, likely due to pain -Monitor for now, BP normotensive in the 120s systolic (5) Acute blood loss anemia: -Patient had a hgb drop from 14.1 to 9.8 in the setting of Eliquis therapy for DVT prophylaxis, femoral fracture, and fracture repair -Patient has no signs of any active bleeding. No melena, hematochezia, hematemesis -Hgb stable over 48 hours (6) Hyponatremia: -Chronic, stable at 133, no intervention at this time as patient has been advised by urology to drink a certain amount of fluid to decrease UTI risk (7) Incomplete bladder emptying: -Continue chronic Martinez, catheter care ordered Q-shift -UA without evidence of infection -Continue Myrbetriq (8) Constipation: Continue bowel regimen on discharge Discharge Exam Constitutional WD/WN, vitals as above Musculoskeletal Left hip with dressing in place, no concerning erythema Psychiatric Alert and oriented to self, place, situation, much more conversant today Updated Medication List Medication Instructions Recorded Confirmed Type cholecalciferol (vitamin D3) 50 50 mcg PO DAILY 10/13/22 10/13/22 History mcg (2,000 unit) tablet (Vitamin D3) folic acid 1 mg tablet 1 mg PO DAILY 10/13/22 10/13/22 History mirabegron 25 mg tablet,extended 25 mg PO DAILY 10/13/22 10/13/22 History release 24 hr (Myrbetriq) icbvpism-xus-lbtli acid 300 1 tab PO DAILY 10/13/22 10/13/22 History mcg-lycopene 600 mcg-lutein 300 mcg tablet apixaban 2.5 mg tablet (Eliquis) 2.5 mg PO BID 45 days #90 tabs 10/19/22 Rx oxycodone 5 mg tablet 5 mg PO Q6H PRN severe pain (scale 10/19/22 Rx score 7-10) #10 tabs psyllium husk 3.4 gram/5.4 gram 1 tbsp PO DAILY #660 grams 05/13/23 Rx oral powder (Metamucil) sennosides 8.6 mg-docusate sodium 2 tab PO HS 30 days #60 tabs 10/19/22 Rx 50 mg tablet (Senokot-S) Hospital Stay Data Procedures Performed Operation Date: 10/14/22 13:35 Actual Procedures p Left Anterior Hemiarthroplasty, Cemented(Left) - Jordan Faria, Diagnostic Imagining Performed 10/13/22 14:30 CT lumbar spine w con Stat CT thoracic spine w con Stat 10/13/22 14:31 CT abd pelvis IV con only Stat CT cervical spine wo con Stat CT chest diagnostic w con Stat 10/13/22 14:42 CT head/brain wo con Stat 10/14/22 07:18 MR hip LT wo con Stat 10/14/22 11:30 FL hip LT 1V Routine Discharge Instructions Given to Patient (Per Discharging Provider) Fracture of femoral neck, left, closed: -Sustained a mechanical fall while raking leaves outside 10/13, not on anticoagulation -Ortho consulted, s/p left hip hemiarthroplasty 10/[address] Cain, follow up 2 weeks post op for staple removal -IV Morphine was helping with pain but was making patient more confused and lethargic; oxycodone prn with better mentation -Continue scheduled Tylenol 1000mg TID -Recommend 4 times daily icing to affected left hip, as well as prn after PT -Continue Eliquis 2.5 mg twice daily for postoperative DVT prophylaxis by orthopedic provider x6 weeks Fall: -Mechanical fall sustained while losing his balance raking leaves 10/13 -No symptoms prior to his fall to suggest another etiology -Extensive trauma workup in the ED only positive for left hip fx and left thigh contusion -Fall precautions Dementia: -Not currently on treatment -With hospital related delirium, which is occurred on past hospitalizations and with previous surgeries -Recommend bed assignment with good sunlight as this has benefited the patient greatly and promoted sleep/wake cycles, delirium precautions -Discussed that admission UA negative for signs of infection, no patient complaints of suprapubic pain/pressure, urine not cloudy, and patient more awake and alert with delirium precautions. Do not suspect UTI as cause of mentation changes Hypertension: -Stable off antihypertensives; was initially elevated on ED arrival, likely due to pain -Monitor for now, BP normotensive in the 110s systolic Acute blood loss anemia: -Patient had a hgb drop from 14.1 to 9.8 in the setting of Eliquis therapy for DVT prophylaxis, femoral fracture, and fracture repair -Patient has no signs of any active bleeding. No melena, hematochezia, hematemesis -Hgb stable on discharge, recommend follow up with PCP Hyponatremia: -Chronic, did not improve with fluid restriction, Na 133 and stable -No change to fluids, allow PO water intake, family requests as this helps with UTI management Incomplete bladder emptying: -Continue chronic [place], catheter care ordered Q-shift -UA without evidence of infection -Continue Myrbetriq Constipation: BM x2 yesterday with bowel regimen. Recommend continuing bowel regimen on discharge Total Time Total Time Spent Total Time Spent (In Minutes): 35 minutes Coding Level of Care Code 23724 INP/OBS DISCH >30 MIN Diagnoses Fracture of femoral neck, left, closed S72.002A Fall W19.XXXA Encounter type: initial encounter Dementia F03.90 Hypertension I10 Acute blood loss anemia D62 Hyponatremia E87.1 Incomplete bladder emptying R33.9 Constipation K59.00
[2022-10-19 09:31] LABS: BUN Creatinine Ratio 27.1 (10-20); Calcium 8.6 mg/dl (8.6-10.3); Creatinine Clr Calc Pharmacy 81.4 ml/min; Est GFR (African American) 101.9 ml/min; Est GFR (Non-African American) 87.9 ml/min; Potassium 3.9 mmol/L (3.5-5.1)
== END 2022-10-19 11:08 | DRG 522 ==
LOC: ED 14:19 → SUATTDRO 16:11 → 3N 16:11

== ENCOUNTER 2022-12-16 21:36 | Inpatient (IN) ==
[2022-12-16] MEDS ORDERED: ACETAMINOPHEN 1,000 MG/100 ML VIAL IV STA (22:08)
[2022-12-16] MEDS ORDERED: SODIUM CHLORIDE 0.9% 1000ML 1,000 ML IV ONE ×2 (22:08→22:11)
[2022-12-16] MEDS ORDERED: PIPERACILLIN/TAZOBACTAM 4.5 GM/120 ML BAG IV ONE (22:10)
[2022-12-16] MEDS ORDERED: SODIUM CHLORIDE 0.9% 1000ML 500 ML IV SCH (22:15)
[2022-12-16 22:25] LABS: Basophils # (auto) 0.05 K/uL (0-0.2); Basophils % (auto) 0.4 %; Eosinophils # (auto) 0.07 K/uL (0-0.50); Eosinophils % (auto) 0.5 %; Hematocrit (blood only) 40.1 % (42.0-52.0); Immature Granulocytes # (auto) 0.06 K/uL (0.01-0.20); Immature Granulocytes % (auto) 0.4 %; Lymphocytes # (auto) 0.84 K/uL (1.2-3.4); Lymphocytes % (auto) 5.9 %; Mean Corpuscular Hemoglobin 32.2 pg (25.0-34.0); Mean Corpuscular Hgb Conc 34.9 g/dL (32.0-36.0); Mean Corpuscular Volume 92.2 fL (80.0-100.0); Mean Platelet Volume 9.5 fL (9.4-12.4); Monocytes # (auto) 1.03 K/uL (0.11-0.59); Monocytes % (auto) 7.2 %; Neutrophils # (auto) 12.22 K/uL (1.40-6.50); Neutrophils % (auto) 85.6 %; Platelet Count 139 K/uL (130-400); RDW Coefficient of Variation 13.3 % (11.5-14.5); RDW Standard Deviation 45.5 fL (36.4-46.3); Red Blood Count 4.35 M/uL (4.70-6.10); White Blood Count 14.27 K/ul (4.8-10.8)
[2022-12-16 22:41] LABS: Alanine Aminotransferase 42 U/L (7-52); Alkaline Phosphatase 119 U/L (34-104); Anion Gap 7 (3-11); Aspartate Aminotransferase 56 U/L (13-39); BUN Creatinine Ratio 18.4 (10-20); Bilirubin Direct 0.2 mg/dl (0-0.2); Bilirubin,Total 0.9 mg/dl (0.2-1.0); Blood Urea Nitrogen 16 mg/dl (6-23); Calcium 9.3 mg/dl (8.6-10.3); Carbon Dioxide 25 mmol/L (21-32); Chloride 98 mmol/L (98-107); Creatine Kinase 34 U/L (30-223); Est GFR (African American) 93.2 ml/min; Est GFR (Non-African American) 80.4 ml/min; Glucose 118 mg/dl (70-99(Fasting)); Magnesium 1.9 mg/dl (1.7-2.4); Potassium 3.8 mmol/L (3.5-5.1); Sodium 130 mmol/L (136-145); Total Protein 7.1 gm/dl (6.0-8.3)
[2022-12-16 22:43] LABS: Appearance Urine Cloudy (Clear); Bacteria Urine Automated 3+ (Negative); Bilirubin Urine Negative (Negative); Blood Urine Trace (Negative); Color Urine Yellow; Epithelial Cell Urine Auto 0-5 /lpf (0-5); Glucose Urine UA Negative (Negative); Ketones Urine Negative (Negative); Leukocyte Esterase Urine 3+ (Negative); Nitrite Urine Positive (Negative); Protein Urine Trace (Negative); RBC Urine Automated 0-4 /hpf (0-4); Specific Gravity Urine 1.019 (1.000-1.030); Urobilinogen Urine Negative (Negative); WBC Urine Automated >30 /hpf (0-5); pH Urine 6.5 (4.5-7.5)
[2022-12-16 22:48] LABS: Troponin I High Sensitivity 22.9 pg/ml (0-20)
--- NOTE | 2022-12-17 00:01 | History & Physical Report ---
Date of Service December 16, 2022 Assessment & Plan (1) Sepsis: Plan: Patient febrile, tachycardic, elevated WBC count at 14.27 with neutrophil predominance, mildly elevated procalcitonin at 0.56. Blood pressure is stable. HR improved with IVF and Tylenol. Possible UTI. Patient with chronic, indwelling Gamboa. Also consider abdominal infection - report of left abdominal pain. Mild elevation of AST and AP. 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 [place] although no report of recent tick-bites. Respiratory BioFire panel is NEGATIVE -Admit to medical -Follow cultures sent in ER -Follow CT abdomen report - image taken, read pending -Check Lyme, Anaplasmosis and Babesia -Gamboa exchanged in the ER -Repeat LFTs in AM -Repeat Troponin in AM -Zosyn empiric -Doxycycline empiric -Tylenol as needed for pain or fever -Zofran as needed for nausea (2) Acute UTI: Plan: Suspect acute UTI - chronic indwelling Gamboa catheter, UA suggests infection -Follow cultures -Zosyn as above Patient takes minimal home medications for chronic medical issues History of Present Illness Chief Complaint: sepsis Primary Care Provider: Keith Smith MD Keith Lopez is an 82yo male with history of prior CVA, HTN, Seizure, FELIX, indwelling Gamboa catheter and paroxysmal atrial tachycardia presenting with sepsis. Patient is not answering questions - does not fully participate in exam. History obtained through discussion with ER staff, chart review and family at bedside - and daughter. Patient had a recent UTI for which he was treated with antibiotics. He had a followup UA in the clinic on 12/11/22 which was reportedly normal. reports that she thought the patient may be getting an infection for the last week. Yesterday he was active and participated in therapy and went for a walk but his daughter states that he was "spacey". This morning when he woke up he had an episode of fecal incontinence. He also had confusion and generalized weakness with inability to walk. He was unable to stand without assistance. Patient's symptoms progressed throughout the day. This evening prior to arrival he was very confused, agitated and "speaking gibberish". He also was unable to get out of his chair to walk to bed. Patient had decreased appetite and poor oral intake today. He was complaining of sharp pain in his left upper abdomen. No report of fever at home, no chest pain, cough or SOB. No vomiting or diarrhea but he did have two episodes of fecal incontinence. No recent tick exposure. Daughter reports Gamboa was changed on December 05. It has been functioning pr operly draining clear, yellow urine. No report of blood or sediment. Urine is occasionally cloudy. In the ER he is febrile at 39.2, elevated HR at 94bpm. Blood pressure is stable. He is saturating 93% on room air. ER Course: Tylenol Zosyn NSS Allergies Allergy/AdvReac Type Severity Reaction Status Date / Time codeine AdvReac Intermediate GI SYMPTOMS Verified 11/13/22 13:39 Opioids - Morphine Analogues AdvReac Intermediate Vomiting Verified 11/13/22 13:39 Opioids-Meperidine and AdvReac Intermediate Vomiting Verified 11/13/22 13:39 Related Opioids-Methadone and Related AdvReac Intermediate Vomiting Verified 11/13/22 13:39 oxycodone [From Percocet] AdvReac Intermediate n/v Verified 11/13/22 13:39 Home Medications Medication Instructions Recorded Confirmed Type cholecalciferol (vitamin D3) 50 50 mcg PO DAILY 10/13/22 12/16/22 History mcg (2,000 unit) tablet (Vitamin D3) folic acid 1 mg tablet 1 mg PO QAM 10/13/22 12/16/22 History kmiseoos-bd-kczmn 300 mcg-K 60 1 tab PO DAILY 10/13/22 12/16/22 History mcg-lycop 600 mcg-lutein 300 mcg tablet psyllium husk 3.4 gram/5.4 gram 1 tbsp PO DAILY #660 grams 10/19/22 12/16/22 Rx oral powder (Metamucil) acetaminophen 500 mg tablet 1,000 mg PO TID 10/27/22 12/16/22 History ferrous sulfate 325 mg (65 mg 325 mg PO BIDM 10/27/22 12/16/22 History iron) tablet acetaminophen 325 mg tablet 500 mg PO TID PRN Mild Pain (Scale 11/13/22 12/16/22 History Score 1-4) nystatin 100,000 unit/gram topical 1 applic topical BID #60 grams 11/22/22 12/16/22 Rx powder mirabegron 25 mg tablet,extended 25 mg PO QAM #30 tabs 12/11/22 12/16/22 Rx release 24 hr (Myrbetriq) Past Med/Surg History Medical History Aneurysm of aortic arch Cerebral infarction, unspecified Gross hematuria History of anesthesia reaction WITH HERNIA SURGERY ([facility]) HAD TROUBLE WAKING UP History of bicuspid aortic valve History of stroke 2012 - RESIDUAL: STABILITY ISSUE History of TIA (transient ischemic attack) SEPTEMBER 14, 2018 - (USUALLY TIA OCCURS 1X PER YR/STARTED 5 YR AGO)/DR FARRELL Hypertension Lyme disease Seizure X1 OR 2 - WHEN TX FOR STROKE IN 2012/ DR FARRELL Surgical History H/O aortic aneurysm repair H/O aortic valve replacement 2013 - AND BICUSPID VALVE REPLACED AT SAME TIME PER PT REPORT /"OPEN HEART" 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 History of appendectomy (03/16/13) History of colonoscopy History of hernia surgery X2 History of repair of right rotator cuff Family History Mother , age 70 of lung cancer Lung cancer COPD (chronic obstructive pulmonary disease) Father , age 91 of prostate cancer Prostate cancer Coronary heart disease Myocardial infarction Family/Other Breast cancer Cancer Other Heart disease No family history of adverse response to anesthesia No family history of bleeding disorder Social History Smoking Status: Unknown if ever smoked Second Hand Exposure: No; Do You Dip or Chew Tobacco: No; Hx Alcohol Use: No Hx Substance Use: No Preferred Language: Greenlandic Communication Ability: Effective Communication Ability Comment: , Roxana Lopez, is POA. Visual Impairment: No Limitations Hearing Ability: Normal Client Services Coordinator Required: No Beliefs That Will Affect Care: None marital status: Current Living Situation: Spouse current occupational status: retired Feels Safe at Home: Yes Assistive Devices: Cane, Raised Toilet Seat and Walker Review of Systems Review of Systems: All systems reviewed & are unremarkable except as noted in HPI & below Physical Exam Physical Exam: General: patient resting comfortably, non-toxic, is not answering questions, follows some commands Skin: warm, dry, intact, no rashes or lesions HEENT: NC/AT, PERRL, EOMI, anicteric sclera, conjunctiva without injection, e xternal ear normal to inspection and nontender, nares patent, slightly dry mucus membranes, dentition intact, no oropharyngeal lesions, neck supple, trachea midline, no LAD, no thyromegaly, no JVD Heart: +S1/S2, regular with frequent ectopy, no m/r/g Lungs: equal air entry bilaterally, no rales/rhonchi/wheezes Abd: +BS, soft, ND, no masses/organomegaly/ascites, no grimacing with deep palpation over 4 quadrants Ext: warm, 2+ pulses in UE/LE bilaterally, no clubbing/cyanosis or edema Neuro: encephalopathic, not answering questions, following some commands, moving 4 extremities with seemingly equal strength on limited exam Results & Data Results & Data Vital Signs (Past 12 Hours) Vital Signs Temp Pulse Pulse Resp BP BP Pulse Ox 12/16/22 23:41 93 12/16/22 22:10 110 H 16 146/88 H 94 12/16/22 23:04 94 H 16 131/82 93 12/16/22 21:51 118 H 12/16/22 22:27 103 H 16 93 12/16/22 22:20 39.2 C H O2 Del Method 12/16/22 23:41 Room Air 12/16/22 22:10 Room Air 12/16/22 23:04 Room Air 12/16/22 21:51 12/16/22 22:27 Room Air 12/16/22 22:20 Laboratory Results Laboratory Results WBC 14.27 K/ul (4.8-10.8) H 12/16/22 21:50 RBC 4.35 M/uL (4.70-6.10) L 12/16/22 21:50 Hgb 14.0 g/dl (14.0-18.0) 12/16/22 21:50 Hct 40.1 % (42.0-52.0) L 12/16/22 21:50 MCV 92.2 fL (80.0-100.0) 12/16/22 21:50 MCH 32.2 pg (25.0-34.0) 12/16/22 21:50 MCHC 34.9 g/dL (32.0-36.0) 12/16/22 21:50 RDW Std Deviation 45.5 fL (36.4-46.3) 12/16/22 21:50 RDW Coeff of Stormy 13.3 % (11.5-14.5) 12/16/22 21:50 Plt Count 139 K/uL (130-400) 12/16/22 21:50 MPV 9.5 fL (9.4-12.4) 12/16/22 21:50 Immature Gran % (Auto) 0.4 % 12/16/22 21:50 Neut % (Auto) 85.6 % 12/16/22 21:50 Lymph % (Auto) 5.9 % 12/16/22 21:50 Whiteside % (Auto) 7.2 % 12/16/22 21:50 Eos % (Auto) 0.5 % 12/16/22 21:50 Baso % (Auto) 0.4 % 12/16/22 21:50 Neut # (Auto) 12.22 K/uL (1.40-6.50) H 12/16/22 21:50 Lymph # (Auto) 0.84 K/uL (1.2-3.4) L 12/16/22 21:50 Whiteside # (Auto) 1.03 K/uL (0.11-0.59) H 12/16/22 21:50 Eos # (Auto) 0.07 K/uL (0-0.50) 12/16/22 21:50 Baso # (Auto) 0.05 K/uL (0-0.2) 12/16/22 21:50 Immature Gran # (Auto) 0.06 K/uL (0.01-0.20) 12/16/22 21:50 Sodium 130 mmol/L (136-145) L 12/16/22 21:50 Potassium 3.8 mmol/L (3.5-5.1) 12/16/22 21:50 Chloride 98 mmol/L (98-107) 12/16/22 21:50 Carbon Dioxide 25 mmol/L (21-32) 12/16/22 21:50 Anion Gap 7 (3-11) 12/16/22 21:50 BUN 16 mg/dl (6-23) 12/16/22 21:50 Creatinine 0.87 mg/dl (0.6-1.4) 12/16/22 21:50 Est Cr Clr Drug Dosing Not Reportable 12/16/22 21:50 Est GFR ( Amer) 93.2 ml/min 12/16/22 21:50 Est GFR (Non-Af Amer) 80.4 ml/min 12/16/22 21:50 BUN/Creatinine Ratio 18.4 (10-20) 12/16/22 21:50 Glucose 118 mg/dl (70-99(Fasting)) H 12/16/22 21:50 Lactate 1.0 mmol/L (0.4-2.0) 12/16/22 22:33 Calcium 9.3 mg/dl (8.6-10.3) 12/16/22 21:50 Magnesium 1.9 mg/dl (1.7-2.4) 12/16/22 21:50 Total Bilirubin 0.9 mg/dl (0.2-1.0) 12/16/22 21:50 Direct Bilirubin 0.2 mg/dl (0-0.2) 12/16/22 21:50 AST 56 U/L (13-39) H 12/16/22 21:50 ALT 42 U/L (7-52) 12/16/22 21:50 Alkaline Phosphatase 119 U/L (34-104) H 12/16/22 21:50 Total Creatine Kinase 34 U/L (30-223) 12/16/22 21:50 Troponin I High Sens 22.9 pg/ml (0-20) H 12/16/22 21:50 Total Protein 7.1 gm/dl (6.0-8.3) 12/16/22 21:50 Albumin 4.0 gm/dl (3.4-5.0) 12/16/22 21:50 Procalcitonin 0.56 ng/ml (0-0.5) H 12/16/22 21:50 Urine Color Yellow 12/16/22 22:30 Urine Appearance Cloudy (Clear) A 12/16/22 22:30 Urine pH 6.5 (4.5-7.5) 12/16/22 22:30 Ur Specific [place] 1.019 (1.000-1.030) 12/16/22 22:30 Urine Protein Trace (Negative) H 12/16/22 22:30 Urine Glucose (UA) Negative (Negative) 12/16/22 22:30 Urine Ketones Negative (Negative) 12/16/22 22:30 Urine Blood Trace (Negative) H 12/16/22 22:30 Urine Nitrite Positive (Negative) A 12/16/22 22:30 Urine Bilirubin Negative (Negative) 12/16/22 22:30 Urine Urobilinogen Negative (Negative) 12/16/22 22:30 Ur Leukocyte Esterase 3+ (Negative) H 12/16/22 22:30 Urine WBC (Auto) >30 /hpf (0-5) H 12/16/22 22:30 Urine RBC (Auto) 0-4 /hpf (0-4) 12/16/22 22:30 U Hyaline Cast (Auto) 10-30 /lpf (0-5) H 12/16/22 22:30 U Epithel Cells (Auto) 0-5 /lpf (0-5) 12/16/22 22:30 Urine Bacteria (Auto) 3+ (Negative) H 12/16/22 22:30 Adenovirus (PCR) Not Detected (NotDetected) 12/16/22 23:20 B. pertussis DNA (PCR) Not Detected (NotDetected) 12/16/22 23:20 B.parapertussis DNA PCR Not Detected (NotDetected) 12/16/22 23:20 C. pneumoniae DNA (PCR) Not Detected (NotDetected) 12/16/22 23:20 Coronavirus OC43 (PCR) Not Detected (NotDetected) 12/16/22 23:20 Coronavirus HKU1 (PCR) Not Detected (NotDetected) 12/16/22 23:20 Coronavirus 229E (PCR) Not Detected (NotDetected) 12/16/22 23:20 SARS-CoV-2 (PCR) Not Detected (NotDetected) 12/16/22 23:20 Coronavirus NL63 (PCR) Not Detected (NotDetected) 12/16/22 23:20 Human Metapneumovir PCR Not Detected (NotDetected) 12/16/22 23:20 Influenza Type A (PCR) Not Detected (NotDetected) 12/16/22 23:20 Influenza Type B (PCR) Not Detected (NotDetected) 12/16/22 23:20 M. pneumoniae (PCR) Not Detected (NotDetected) 12/16/22 23:20 Parainfluenza 1 (PCR) Not Detected (NotDetected) 12/16/22 23:20 Parainfluenza 2 (PCR) Not Detected (NotDetected) 12/16/22 23:20 Parainfluenza 3 (PCR) Not Detected (NotDetected) 12/16/22 23:20 Parainfluenza 4 (PCR) Not Detected (NotDetected) 12/16/22 23:20 RSV (PCR) Not Detected (NotDetected) 12/16/22 23:20 Entero/Rhino (PCR) Not Detected (NotDetected) 12/16/22 23:[address] 12/16/22 22:08 Exam(s): CT HEAD Without Contrast EXAM: CT Head Without Intravenous Contrast CLINICAL HISTORY: Reason for exam: ams. TECHNIQUE: Axial computed tomography images of the head/brain without intravenous contrast. CTDI is 37.01 mGy and DLP is 625.8 mGy-cm. Automated exposure control was utilized for the study. A dose lowering technique was utilized adhering to the principles of ALARA. COMPARISON: No relevant prior studies available. FINDINGS: No acute intracranial hemorrhage. No midline shift or mass effect. The territorial roman-white matter differentiation is maintained throughout. Age-related cerebral volume loss. Periventricular and subcortical white matter hypoattenuation, consistent with chronic microangiopathy. The visualized orbits appear grossly unremarkable. The calvarium is intact. The visualized paranasal sinuses and mastoid air cells are grossly clear. IMPRESSION: No acute intracranial hemorrhage, midline shift, or mass effect. Electronically signed by: Cristino Osborne MD 12/17/22 00:07 AM ECG Additional Comments: EKG with ST at 112bpm, left axis deviation, frequent PACs present, PG=713, QRS=98, KHd=129. No ST elevation PG Care Time/CCT Total # of Minutes Spent Total Time Spent with Patient: Total time spent is greater than 50% in coordination of care (as documented) at patient's floor/unit and/or counseling patient: Coding Level of Care Code 92159 INT INP/OBS CARE 3/75MIN Diagnoses Sepsis A41.9 Sepsis acute organ dysfunction status: without acute organ dysfunction Sepsis type: sepsis due to unspecified organism Acute UTI N39.0 (1) Sepsis Sepsis acute organ dysfunction status: without acute organ dysfunction Sepsis type: sepsis due to unspecified organism Qualified Code(s): A41.9 - Sepsis, unspecified organism
--- NOTE | 2022-12-17 00:09 | Emergency Department Note ---
History of Present Illness General Chief complaint: Weakness Stated complaint: WEAKNESS/CLEMENT-POOR DRAINAGE Time Seen by Provider: 12/16/22 21:56 History of Present Illness This 82-year-old male with dementia presents to the ER with family for evaluation of increased altered mental status today. The states he is not acting right. He defecated on the bed and was trying to put his shoes on where he already had a mom. She was concerned and brought him in. He has an indwelling Clement catheter. He finished antibiotics last week for UTI. Family denies vomiting, cough, fevers or rash. Patient is demented and history is obtained from the who is the primary caregiver. Home Medications Medication Instructions Recorded Confirmed Type cholecalciferol (vitamin D3) 50 50 mcg PO DAILY 10/13/22 12/16/22 History mcg (2,000 unit) tablet (Vitamin D3) folic acid 1 mg tablet 1 mg PO QAM 10/13/22 12/16/22 History ppnamkbt-wu-ezoam 300 mcg-K 60 1 tab PO DAILY 10/13/22 12/16/22 History mcg-lycop 600 mcg-lutein 300 mcg tablet psyllium husk 3.4 gram/5.4 gram 1 tbsp PO DAILY #660 grams 10/19/22 12/16/22 Rx oral powder (Metamucil) acetaminophen 500 mg tablet 1,000 mg PO TID 10/27/22 12/16/22 History ferrous sulfate 325 mg (65 mg 325 mg PO BIDM 10/27/22 12/16/22 History iron) tablet acetaminophen 325 mg tablet 500 mg PO TID PRN Mild Pain (Scale 11/13/22 12/16/22 History Score 1-4) nystatin 100,000 unit/gram topical 1 applic topical BID #60 grams 11/22/22 12/16/22 Rx powder mirabegron 25 mg tablet,extended 25 mg PO QAM #30 tabs 12/11/22 12/16/22 Rx release 24 hr (Myrbetriq) Allergies Allergy/AdvReac Type Severity Reaction Status Date / Time codeine AdvReac Intermediate GI SYMPTOMS Verified 11/13/22 13:39 Opioids - Morphine Analogues AdvReac Intermediate Vomiting Verified 11/13/22 13:39 Opioids-Meperidine and AdvReac Intermediate Vomiting Verified 11/13/22 13:39 Related Opioids-Methadone and Related AdvReac Intermediate Vomiting Verified 11/13/22 13:39 oxycodone [From Percocet] AdvReac Intermediate n/v Verified 11/13/22 13:39 Past Med/Surg History Medical History Aneurysm of aortic arch Cerebral infarction, unspecified Gross hematuria History of anesthesia reaction WITH HERNIA SURGERY ([place]) HAD TROUBLE WAKING UP History of bicuspid aortic valve History of stroke 2012 - RESIDUAL: STABILITY ISSUE History of TIA (transient ischemic attack) SEPTEMBER 14, 2018 - (USUALLY TIA OCCURS 1X PER YR/STARTED 5 YR AGO)/DR FARRELL Hypertension Lyme disease Seizure X1 OR 2 - WHEN TX FOR STROKE IN 2012/ DR FARRELL Surgical History H/O aortic aneurysm repair H/O aortic valve replacement 2013 - AND BICUSPID VALVE REPLACED AT SAME TIME PER PT REPORT /"OPEN HEART" 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 History of appendectomy (03/16/13) History of colonoscopy History of hernia surgery X2 History of repair of right rotator cuff Family History Mother , age 70 of lung cancer Lung cancer COPD (chronic obstructive pulmonary disease) Father , age 91 of prostate cancer Prostate cancer Coronary heart disease Myocardial infarction Family/Other Breast cancer Cancer Other Heart disease No family history of adverse response to anesthesia No family history of bleeding disorder Social History Smoking Status: Unknown if ever smoked Second Hand Exposure: No; Do You Dip or Chew Tobacco: No; Hx Alcohol Use: No Hx Substance Use: No Preferred Language: Bengali Communication Ability: Effective Communication Ability Comment: , Roxana Lopez, is POA. Visual Impairment: No Limitations Hearing Ability: Normal Row Boss Required: No Beliefs That Will Affect Care: None marital status: Current Living Situation: Alone current occupational status: retired Feels Safe at Home: Yes Assistive Devices: CPAP and Walker Review of Systems A total of 10 systems reviewed and were otherwise negative Physical Exam Vital Signs Vital Signs - 24 hr 12/16/22 22:20 12/16/22 22:27 12/16/22 21:51 Temperature 39.2 C H Temperature Source Rectal Pulse Rate 118 H Pulse Rate [Apical] 103 H Respiratory Rate 16 Blood Pressure Blood Pressure [Right Arm] Blood Pressure Mean Blood Pressure Mean [Right Arm] Pulse Oximetry 93 Oxygen Delivery Method Room Air Sepsis Recent Fever Within 48 Hours Sepsis New/Unexplained Change in Mental Status Sepsis Action Taken by Nursing 12/16/22 23:04 12/16/22 22:10 12/16/22 23:41 Temperature Temperature Source Pulse Rate 110 H Pulse Rate [Apical] 94 H Respiratory Rate 16 16 Blood Pressure 146/88 H Blood Pressure [Right Arm] 131/82 Blood Pressure Mean 107 Blood Pressure Mean [Right Arm] 98 Pulse Oximetry 93 94 93 Oxygen Delivery Method Room Air Room Air Room Air Sepsis Recent Fever Within 48 Hours Yes Sepsis New/Unexplained Change in Mental Status Yes Sepsis Action Taken by Nursing No Action Required VITALS: Vitals are noted on the nurse's note and reviewed by myself. Vital signs febrile. GENERAL: Ill-appearing demented male, laying in the bed moaning SKIN: The skin was without rashes, erythema, edema, or bruising. There is no tenting of the skin. Capillary reflex less than 2 seconds. HEAD: Normocephalic atraumatic. EARS: External auditory canals clear, tympanic membranes pearly roman without erythema or effusion bilaterally. EYES: Pupils equal round and reactive to light and accommodation. Conjunctivae without injection, sclerae without icterus. Extraocular movements intact. NOSE: Patent, turbinates without inflammation or discharge. MOUTH: Mucous membranes dry Pharynx without erythema or exudate. Uvula midline. Airway patent. Tongue does not deviate. NECK: Supple without nuchal rigidity. No lymphadenopathy. No thyromegaly. Cervical spine is nontender. No JVD. HEART: Regular rate and rhythm LUNGS: Clear to auscultation bilaterally without wheezes, rales or rhonchi. No retractions or accessory muscle use. ABDOMEN: Positive bowel sounds x 4. Normal tympanic percussion. Soft, nontender, without masses or organomegaly. Eric sign negative. No guarding or rebound tenderness. No CVA tenderness Clement present MUSCULOSKELETAL: No muscle atrophy, erythema, or edema noted. NEURO: Patient was arousable to sternal rub but not oriented to person place and time. No focal neurological deficits. Course Administered Medications Ampicillin Sodium/Sulbactam Sodium 1,500 mg/ Sodium Chloride 104 mls @ 200 mls/ hr IV Q6H BRENDA; Protocol Stop: 12/28/22 10:29 Last Admin: 12/18/22 11:17 Dose: 200 mls/hr Documented By: KRYSTIN Melatonin (Melatonin 3 Mg Tab) 3 mg PO HS PRN PRN Reason: Sleep Stop: 01/16/23 19:50 Last Admin: 12/17/22 21:37 Dose: 3 mg Documented By: BRENDA Nystatin (Nystatin Powder 15gm Btl) 1 appln EXT BID BRENDA Stop: 01/16/23 08:59 Last Admin: 12/18/22 08:44 Dose: 1 appln Documented By: Admin: 12/17/22 21:38 Dose: 1 appln Documented By: Admin: 12/17/22 08:19 Dose: 1 appln Documented By: KRYSTIN Discontinued Medications Acetaminophen (Ofirmev) 1,000 mg in 100 mls @ 400 mls/hr IV NOW STA Stop: 12/16/22 22:22 Last Infusion: 12/16/22 23:17 Dose: 0 mls/hr Documented By: Admin: 12/16/22 23:02 Dose: 400 mls/hr Documented By: JOHN Sodium Chloride (Nss 1000ml) 1,000 mls @ 999 mls/hr IV .Q1H1M ONE Stop: 12/16/22 23:08 Last Infusion: 12/16/22 23:27 Dose: 0 mls/hr Documented By: Admin: 12/16/22 22:23 Dose: 999 mls/hr Documented By: JOHN Piperacillin Sod/Tazobactam Sod (Zosyn) 4.5 gm in 120 mls @ 240 mls/hr IV NOW ONE Stop: 12/16/22 22:39 Last Infusion: 12/16/22 22:57 Dose: 0 mls/hr Documented By: Admin: 12/16/22 22:25 Dose: 240 mls/hr Documented By: JOHN Sodium Chloride (Nss 1000ml) 1,000 mls @ 999 mls/hr IV .Q1H1M ONE Stop: 12/16/22 23:11 Last Infusion: 12/17/22 01:07 Dose: 0 mls/hr Documented By: Admin: 12/17/22 00:02 Dose: 999 mls/hr Documented By: JOHN Piperacillin Sod/Tazobactam (Sod 4.5 gm/ Dextrose) 120 mls @ 30 mls/hr IV Q8H [facility]; Protocol Stop: 12/19/22 03:59 Last Infusion: 12/18/22 08:43 Dose: 0 mls/hr Documented By: Admin: 12/18/22 04:17 Dose: 30 mls/hr Documented By: Infusion: 12/17/22 23:36 Dose: 0 mls/hr Documented By: SL Admin: 12/17/22 19:56 Dose: 30 mls/hr Documented By: Infusion: 12/17/22 16:19 Dose: 0 mls/hr Documented By: Admin: 12/17/22 12:10 Dose: 30 mls/hr Documented By: Infusion: 12/17/22 09:18 Dose: 0 mls/hr Documented By: Admin: 12/17/22 05:33 Dose: 30 mls/hr Documented By: POOL Sodium Chloride (Nss 1000ml) 1,000 mls @ 80 mls/hr IV .[id number] [facility] Stop: 12/17/22 12:08 Last Infusion: 12/17/22 13:22 Dose: 0 mls/hr Documented By: Infusion: 12/17/22 08:43 Dose: 80 mls/hr Documented By: Admin: 12/17/22 03:33 Dose: 125 mls/hr Documented By: POOL Doxycycline Hyclate 100 mg/ (Dextrose) 110 mls @ 50 mls/hr IV Q12H [facility] Stop: 12/19/22 02:59 Last Infusion: 12/18/22 04:19 Dose: 0 mls/hr Documented By: [facility] Admin: 12/18/22 02:24 Dose: 50 mls/hr Documented By: Infusion: 12/17/22 19:21 Dose: 0 mls/hr Documented By: [facility] Admin: 12/17/22 16:19 Dose: 50 mls/hr Documented By: Infusion: 12/17/22 05:33 Dose: 0 mls/hr Documented By: [facility] Admin: 12/17/22 03:33 Dose: 50 mls/hr Documented By: [facility] Medical Decision Making Medical Records Attestation: I reviewed the patient's medical records. Home Medications Current Medication List: was personally reviewed by me Laboratory Data Attestation: I reviewed the patient's lab results. 12/16/22 21:50 12/16/22 21:50 Lab Results 12/16/22 12/16/22 12/16/22 Range/Units 21:50 21:50 21:50 WBC 14.27 H (4.8-10.8) K/ul RBC 4.35 L (4.70-6.10) M/uL Hgb 14.0 (14.0-18.0) g/dl Hct 40.1 L (42.0-52.0) % MCV 92.2 (80.0-100.0) fL MCH 32.2 (25.0-34.0) pg MCHC 34.9 (32.0-36.0) g/dL RDW Std Deviation 45.5 (36.4-46.3) fL RDW Coeff of Stormy 13.3 (11.5-14.5) % Plt Count 139 (130-400) K/uL MPV 9.5 (9.4-12.4) fL Immature Gran % (Auto) 0.4 % Neut % (Auto) 85.6 % Lymph % (Auto) 5.9 % [place] % (Auto) 7.2 % Eos % (Auto) 0.5 % Baso % (Auto) 0.4 % Neut # (Auto) 12.22 H (1.40-6.50) K/uL Lymph # (Auto) 0.84 L (1.2-3.4) K/uL [place] # (Auto) 1.03 H (0.11-0.59) K/uL Eos # (Auto) 0.07 (0-0.50) K/uL Baso # (Auto) 0.05 (0-0.2) K/uL Immature Gran # (Auto) 0.06 (0.01-0.20) K/uL Sodium 130 L (136-145) mmol/L Potassium 3.8 (3.5-5.1) mmol/L Chloride 98 (98-107) mmol/L Carbon Dioxide 25 (21-32) mmol/L Anion Gap 7 (3-11) BUN 16 (6-23) mg/dl Creatinine 0.87 (0.6-1.4) mg/dl Est Cr Clr Drug Dosing Not Reportable Est GFR ( Amer) 93.2 ml/min Est GFR (Non-Af Amer) 80.4 ml/min BUN/Creatinine Ratio 18.4 (10-20) Glucose 118 H (70-99(Fasting)) mg/dl Lactate (0.4-2.0) mmol/L Calcium 9.3 (8.6-10.3) mg/dl Magnesium 1.9 (1.7-2.4) mg/dl Total Bilirubin 0.9 (0.2-1.0) mg/dl Direct Bilirubin 0.2 (0-0.2) mg/dl AST 56 H (13-39) U/L ALT 42 (7-52) U/L Alkaline Phosphatase 119 H (34-104) U/L Total Creatine Kinase 34 (30-223) U/L Troponin I High Sens 22.9 H (0-20) pg/ml Total Protein 7.1 (6.0-8.3) gm/dl Albumin 4.0 (3.4-5.0) gm/dl Procalcitonin 0.56 H (0-0.5) ng/ml Urine Color Urine Appearance (Clear) Urine pH (4.5-7.5) Ur Specific [place] (1.000-1.030) Urine Protein (Negative) Urine Glucose (UA) (Negative) Urine Ketones (Negative) Urine Blood (Negative) Urine Nitrite (Negative) Urine Bilirubin (Negative) Urine Urobilinogen (Negative) Ur Leukocyte Esterase (Negative) Urine WBC (Auto) (0-5) /hpf Urine RBC (Auto) (0-4) /hpf U Hyaline Cast (Auto) (0-5) /lpf U Epithel Cells (Auto) (0-5) /lpf Urine Bacteria (Auto) (Negative) Adenovirus (PCR) (NotDetected) B. pertussis DNA (PCR) (NotDetected) B.parapertussis DNA PCR (NotDetected) C. pneumoniae DNA (PCR) (NotDetected) Coronavirus OC43 (PCR) (NotDetected) Coronavirus HKU1 (PCR) (NotDetected) Coronavirus 229E (PCR) (NotDetected) SARS-CoV-2 (PCR) (NotDetected) Coronavirus NL63 (PCR) (NotDetected) Human Metapneumovir PCR (NotDetected) Influenza Type A (PCR) (NotDetected) Influenza Type B (PCR) (NotDetected) M. pneumoniae (PCR) (NotDetected) Parainfluenza 1 (PCR) (NotDetected) Parainfluenza 2 (PCR) (NotDetected) Parainfluenza 3 (PCR) (NotDetected) Parainfluenza 4 (PCR) (NotDetected) RSV (PCR) (NotDetected) Entero/Rhino (PCR) (NotDetected) 12/16/22 12/16/22 12/16/22 Range/Units 22:30 22:33 23:20 WBC (4.8-10.8) K/ul RBC (4.70-6.10) M/uL Hgb (14.0-18.0) g/dl Hct (42.0-52.0) % MCV (80.0-100.0) fL MCH (25.0-34.0) pg MCHC (32.0-36.0) g/dL RDW Std Deviation (36.4-46.3) fL RDW Coeff of Stormy (11.5-14.5) % Plt Count (130-400) K/uL MPV (9.4-12.4) fL Immature Gran % (Auto) % Neut % (Auto) % Lymph % (Auto) % [place] % (Auto) % Eos % (Auto) % Baso % (Auto) % Neut # (Auto) (1.40-6.50) K/uL Lymph # (Auto) (1.2-3.4) K/uL [place] # (Auto) (0.11-0.59) K/uL Eos # (Auto) (0-0.50) K/uL Baso # (Auto) (0-0.2) K/uL Immature Gran # (Auto) (0.01-0.20) K/uL Sodium (136-145) mmol/L Potassium (3.5-5.1) mmol/L Chloride (98-107) mmol/L Carbon Dioxide (21-32) mmol/L Anion Gap (3-11) BUN (6-23) mg/dl Creatinine (0.6-1.4) mg/dl Est Cr Clr Drug Dosing Est GFR ( Amer) ml/min Est GFR (Non-Af Amer) ml/min BUN/Creatinine Ratio (10-20) Glucose (70-99(Fasting)) mg/dl Lactate 1.0 (0.4-2.0) mmol/L Calcium (8.6-10.3) mg/dl Magnesium (1.7-2.4) mg/dl Total Bilirubin (0.2-1.0) mg/dl Direct Bilirubin (0-0.2) mg/dl AST (13-39) U/L ALT (7-52) U/L Alkaline Phosphatase (34-104) U/L Total Creatine Kinase (30-223) U/L Troponin I High Sens (0-20) pg/ml Total Protein (6.0-8.3) gm/dl Albumin (3.4-5.0) gm/dl Procalcitonin (0-0.5) ng/ml Urine Color Yellow Urine Appearance Cloudy A (Clear) Urine pH 6.5 (4.5-7.5) Ur Specific [place] 1.019 (1.000-1.030) Urine Protein Trace H (Negative) Urine Glucose (UA) Negative (Negative) Urine Ketones Negative (Negative) Urine Blood Trace H (Negative) Urine Nitrite Positive A (Negative) Urine Bilirubin Negative (Negative) Urine Urobilinogen Negative (Negative) Ur Leukocyte Esterase 3+ H (Negative) Urine WBC (Auto) >30 H (0-5) /hpf Urine RBC (Auto) 0-4 (0-4) /hpf U Hyaline Cast (Auto) 10-30 H (0-5) /lpf U Epithel Cells (Auto) 0-5 (0-5) /lpf Urine Bacteria (Auto) 3+ H (Negative) Adenovirus (PCR) Not Detected (NotDetected) B. pertussis DNA (PCR) Not Detected (NotDetected) B.parapertussis DNA PCR Not Detected (NotDetected) C. pneumoniae DNA (PCR) Not Detected (NotDetected) Coronavirus OC43 (PCR) Not Detected (NotDetected) Coronavirus HKU1 (PCR) Not Detected (NotDetected) Coronavirus 229E (PCR) Not Detected (NotDetected) SARS-CoV-2 (PCR) Not Detected (NotDetected) Coronavirus NL63 (PCR) Not Detected (NotDetected) Human Metapneumovir PCR Not Detected (NotDetected) Influenza Type A (PCR) Not Detected (NotDetected) Influenza Type B (PCR) Not Detected (NotDetected) M. pneumoniae (PCR) Not Detected (NotDetected) Parainfluenza 1 (PCR) Not Detected (NotDetected) Parainfluenza 2 (PCR) Not Detected (NotDetected) Parainfluenza 3 (PCR) Not Detected (NotDetected) Parainfluenza 4 (PCR) Not Detected (NotDetected) RSV (PCR) Not Detected (NotDetected) Entero/Rhino (PCR) Not Detected (NotDetected) Imaging Data Attestation: I personally reviewed and interpreted this imaging study as follows: Radiologist's Impression: Head CT 12/16/22 22:08 Exam(s): CT HEAD Without Contrast EXAM: CT Head Without Intravenous Contrast CLINICAL HISTORY: Reason for exam: ams. TECHNIQUE: Axial computed tomography images of the head/brain without intravenous contrast. CTDI is 37.01 mGy and DLP is 625.8 mGy-cm. Automated exposure control was utilized for the study. A dose lowering technique was utilized adhering to the principles of ALARA. COMPARISON: No relevant prior studies available. FINDINGS: No acute intracranial hemorrhage. No midline shift or mass effect. The territorial roman-white matter differentiation is maintained throughout. Age-related cerebral volume loss. Periventricular and subcortical white matter hypoattenuation, consistent with chronic microangiopathy. The visualized orbits appear grossly unremarkable. The calvarium is intact. The visualized paranasal sinuses and mastoid air cells are grossly clear. IMPRESSION: No acute intracranial hemorrhage, midline shift, or mass effect. Electronically signed by: Cristino Osborne MD 12/17/22 00:07 AM Abdomen/Pelvis CT 12/16/22 23:49 Exam(s): CT ABDOMEN + PELVIS Without Contrast EXAM: CT Abdomen and Pelvis Without Intravenous Contrast CLINICAL HISTORY: Reason for exam: abdominal pain, sepsis. TECHNIQUE: Axial computed tomography images of the abdomen and pelvis without intravenous contrast. Automated exposure control was utilized for the study. A dose lowering technique was utilized adhering to the principles of ALARA. COMPARISON: CT 08/03/2022 FINDINGS: ABDOMEN: Liver: Unremarkable. Gallbladder and bile ducts: Unremarkable. Pancreas: Unremarkable. Spleen: Unremarkable. Adrenals: Unremarkable. Kidneys and ureters: No hydronephrosis in the kidneys. Stomach and bowel: Unremarkable. PELVIS: Appendix: No findings to suggest acute appendicitis. Bladder: Prostate is enlarged. Clement catheter within the bladder which is decompressed but appears thick-walled. Correlate for cystitis. Reproductive: Unremarkable as visualized. ABDOMEN and PELVIS: Intraperitoneal space: Unremarkable. No free air. No significant fluid collection. Bones/joints: Left total hip arthroplasty. Artifact related to the hardware this. Degenerative changes within the lumbar spine. Soft tissues: Unremarkable. Vasculature: Unremarkable. Lymph nodes: Unremarkable. IMPRESSION: Prostate is enlarged. Clement catheter within the bladder which is decompressed but appears thick-walled. Correlate for cystitis. Electronically signed by: Titi Samuel MD 12/17/22 03:25 AM MDM Narrative Prior records/ancillary studies reviewed. Triage Nursing notes reviewed. Additional history obtained from family. The patient's history was concerning for febrile and altered who has an indwelling Clement. Differential diagnosis: Etiologies such as sepsis, UTI, pneumonia, metabolic, electrolyte abnormalities, cardiac sources, intracerebral event, toxicologic, neurologic, as well as others were entertained. Physical examination: As above. Pertinent findings were altered and febrile. Vital signs reviewed and revealed febrile and tachycardic. ER treatment provided: IV fluid resuscitation with Normal saline solution, 2000 mL bolus. Blood and urine cultures Antibiotics: Zosyn. Prior urine culture was reviewed Procedures: Clement catheter was changed out An order was placed for continuous cardiac monitoring. The monitor shows a rate of 60-1 50 with a sinus rhythm per my interpretation. On reassessment the patient vital signs improved. Diagnostics interpretation by me: ECG: Ordered for altered mental status EKG: Normal sinus, frequent PVCs, left axis, rate of 112. Impression sinus tachycardia with frequent PVCs left axis independently interpreted by myself The labs Independently Interpreted by myself revealed leukocytosis on CBC. Chemistry panel revealed glucose 118 LFTs revealed. Cardiac enzymes were 22.9. Serum Lactate measurement was 1. Slightly elevated procalcitonin. Blood and urine cultures are pending. Urine concerning for infection sent for culture. Prior urine culture was reviewed. Imaging studies: Chest xray revealed no acute consolidation, pneumothorax or free air per my independent rotation. Head CT negative for intracranial bleed per my independent interpretation Consultation: A consultation was placed with the hospitalist. The case was discussed and mirlande gnostics were reviewed. The patient was evaluated in the ER for further treatment. Exam and history seem consistent with sepsis most likely from the urine. Labs and diagnostics were independent turbid by myself. Radiology read the CAT scan. Patient was immediately started on broad-spectrum antibiotics. Prior cultures were reviewed. He was given septic protocol IV fluids. He was given Tylenol. He was reassessed multiple times. Family is agreeable treatment of admission. Medicine was consulted and the case was discussed. Patient will be admitted to the medical service. The chart was completed utilizing [employer] Speech voice recognition software. Grammatical errors, random word insertions, pronoun errors, and incomplete sentences are an occassional consequence of this system due to software limitations, ambient noise, and hardware issues. Any formal questions or concerns about the content, text, or information contained within the body of this dictation should be directly addressed to the physician chef's assistant for clarification. Impression & Plan Sepsis, Altered mental status, Acute UTI Discharge Plan Visit Data Chief Complaint: Weakness Stated Complaint: WEAKNESS/CLEMENT-POOR DRAINAGE ED Provider: Alfred Castro ED Midlevel Provider: Divya Prado Discharge Problem: Sepsis, Altered mental status, Acute UTI Patient Disposition: Admitted As Inpatient Condition: Fair Discharge Instructions Interventions: ED Discharge Assessment Last Done: 12/17/22 02:05 Sepsis Qualifiers: Sepsis type: sepsis due to unspecified organism Sepsis acute organ dysfunction status: without acute organ dysfunction Qualified Code(s): A41.9 - Sepsis, unspecified organism
[2022-12-17 00:26] LABS: Adenovirus PCR Not Detected (NotDetected); Bordetella parapertussis PCR Not Detected (NotDetected); Bordetella pertussis PCR Not Detected (NotDetected); Chlamydia pneumoniae PCR Not Detected (NotDetected); Coronavirus 229E PCR Not Detected (NotDetected); Coronavirus CoV-2 (COVID19)PCR Not Detected (NotDetected); Coronavirus HKU1 PCR Not Detected (NotDetected); Coronavirus NL63 PCR Not Detected (NotDetected); Coronavirus OC43PCR Not Detected (NotDetected); Human Metapneumovirus PCR Not Detected (NotDetected); Influenza A PCR Not Detected (NotDetected); Influenza B PCR Not Detected (NotDetected); Mycoplasma pneumoniae PCR Not Detected (NotDetected); Parainfluenza Virus 1 PCR Not Detected (NotDetected); Parainfluenza Virus 2 PCR Not Detected (NotDetected); Parainfluenza Virus 3 PCR Not Detected (NotDetected); Parainfluenza Virus 4 PCR Not Detected (NotDetected); Respiratory Syncytial VirusPCR Not Detected (NotDetected); Rhinovirus/Enterovirus PCR Not Detected (NotDetected)
[2022-12-17] MEDS ORDERED: ONDANSETRON INJ 2 MG/ML 2 ML VIAL IV PRN (02:48)
[2022-12-17] MEDS ORDERED: SODIUM CHLORIDE 0.9% 1000ML 1,000 ML IV SCH (02:48)
[2022-12-17] MEDS ORDERED: ACETAMINOPHEN 325 MG TAB PO PRN (02:48)
--- NOTE | 2022-12-17 03:26 | CT Scan Report ---
Exam(s): CT ABDOMEN + PELVIS Without Contrast EXAM: CT Abdomen and Pelvis Without Intravenous Contrast CLINICAL HISTORY: Reason for exam: abdominal pain, sepsis. TECHNIQUE: Axial computed tomography images of the abdomen and pelvis without intravenous contrast. Automated exposure control was utilized for the study. A dose lowering technique was utilized adhering to the principles of ALARA. COMPARISON: CT 08/03/2022 FINDINGS: ABDOMEN: Liver: Unremarkable. Gallbladder and bile ducts: Unremarkable. Pancreas: Unremarkable. Spleen: Unremarkable. Adrenals: Unremarkable. Kidneys and ureters: No hydronephrosis in the kidneys. Stomach and bowel: Unremarkable. PELVIS: Appendix: No findings to suggest acute appendicitis. Bladder: Prostate is enlarged. [place] catheter within the bladder which is decompressed but appears thick-walled. Correlate for cystitis. Reproductive: Unremarkable as visualized. ABDOMEN and PELVIS: Intraperitoneal space: Unremarkable. No free air. No significant fluid collection. Bones/joints: Left total hip arthroplasty. Artifact related to the hardware this. Degenerative changes within the lumbar spine. Soft tissues: Unremarkable. Vasculature: Unremarkable. Lymph nodes: Unremarkable. IMPRESSION: Prostate is enlarged. [place] catheter within the bladder which is decompressed but appears thick-walled. Correlate for cystitis. Electronically signed by: Titi Samuel MD 12/17/22 03:25 AM
[2022-12-17] MEDS: DOXYCYCLINE HYCLATE 100 MG in DEXTROSE 5% 100 ML IV SCH ×2 (03:33→16:19)
[2022-12-17 03:50] LABS: Hematocrit (blood only) 36.1 % (42.0-52.0); Hemoglobin 12.6 g/dl (14.0-18.0); Mean Corpuscular Hemoglobin 32.6 pg (25.0-34.0); Mean Corpuscular Hgb Conc 34.9 g/dL (32.0-36.0); Mean Corpuscular Volume 93.3 fL (80.0-100.0); Mean Platelet Volume 9.9 fL (9.4-12.4); Platelet Count 136 K/uL (130-400); RDW Coefficient of Variation 13.4 % (11.5-14.5); RDW Standard Deviation 45.8 fL (36.4-46.3); Red Blood Count 3.87 M/uL (4.70-6.10); White Blood Count 15.77 K/ul (4.8-10.8)
[2022-12-17 04:16] LABS: Albumin Level 3.4 gm/dl (3.4-5.0); BUN Creatinine Ratio 13.5 (10-20); Bilirubin Direct 0.3 mg/dl (0-0.2); Bilirubin,Total 1.1 mg/dl (0.2-1.0); Calcium 8.5 mg/dl (8.6-10.3); Creatinine Clr Calc Pharmacy 59.3 ml/min; Est GFR (Non-African American) 73.3 ml/min; Potassium 4.8 mmol/L (3.5-5.1)
[2022-12-17 05:23] LABS: Lyme Ab IgG w/WB Rflx Positive (Negative)
[2022-12-17 05:24] LABS: Lyme Ab IgM w/WB Rflx Equivocal (Negative)
[2022-12-17] MEDS: PIPERACILLIN/TAZOBACTAM 4.5 GM in DEXTROSE 5% 100 ML IV SCH ×3 (05:33→19:56)
--- NOTE | 2022-12-17 06:52 | XRay Report ---
SINGLE VIEW CHEST CLINICAL HISTORY: Sepsis. FINDINGS: An AP, portable, upright chest radiograph is compared to study dated 10/27/2022. Correlation is made with chest CT dated 10/13/2022. The examination is degraded by portable technique comment apic al lordotic positioning, and patient rotation. The patient is status post midline sternotomy. The hea rt is enlarged noting atherosclerotic calcification of the thoracic aorta. There is mild pulmonary va scular congestion. There is mild bibasilar scarring/atelectasis. The lungs and pleural spaces are oth erwise clear. No pneumothorax is seen. The skeletal structures are osteopenic. The bony thorax is dayo ssly intact. There is chronic widening of the right AC joint. IMPRESSION: Cardiomegaly with mild pulmonary vascular congestion. ACT 112: Negative or not required by law. Electronically signed by: David Greer M.D. 12/17/2022 6:50 AM
[2022-12-17] MEDS: NYSTATIN POWDER 15GM BTL EXT SCH ×2 (08:19→21:38)
--- NOTE | 2022-12-17 15:27 | Hospitalist Progress Note ---
Date of Service December 17, 2022 Assessment & Plan (1) Sepsis: Plan: Present on admission. Now resolved. Blood cultures are negative to date (2) Complicated UTI (urinary tract infection): Plan: Due to indwelling Gamboa catheter. Awaiting urine and blood culture results. Continue intravenous Zosyn and doxycycline. (3) Metabolic encephalopathy: Plan: Present on admission. Now resolved (4) History of stroke: Plan: Continue current medical management. Stable (5) Coronary artery disease involving autologous artery coronary bypass graft: Plan: Stable. Continue current medical Plan Hopeful discharge to previous living arrangements later this week Admission and Anticipated Discharge Date Admission Date: December 16, 2022 Subjective Alert. Baseline dementia. Daughter is at the bedside. Currently being treated with intravenous Zosyn and doxycycline. This is a complicated UTI due to chronic indwelling Gamboa catheter. He presented with a sepsis picture but vital signs are stable. Oral intake is adequate. IV fluids discontinued. OT and PT assessments requested. Review of Systems Review of Systems: Constitutional-no fever or chills ENT-no blurred vision, no double vision, no epistaxis, no sore throat Respiratory-no cough, no wheezing, no shortness of breath Cardiac-no palpitations, no chest pain, no syncope GI-no nausea, vomiting, diarrhea, melena, hematochezia -no urinary retention, no urinary incontinence, no dysuria, no hematuria Musculoskeletal-no joint pain, no muscle tenderness Skin-no bruising, no rashes, no pruritus Neuro-no isolated weakness, no paresthesia. Psych-worsening of encephalopathy present on admission Physical Exam Physical Exam: General-awake and alert. Oriented to name only. No fevers, no chills HEENT-head atraumatic and normocephalic, pupils equal and reactive to light, extraocular muscles intact Neck-no lymphadenopathy or thyromegaly, trachea midline Chest-clear to auscultation percussion. No rales wheezing or rhonchi Cardiac-regular rate and rhythm, normal S1 and S2 Abdomen-normal bowel sounds, nontender, no hepatosplenomegaly Extremities-no cyanosis, clubbing, or edema Neuro-cranial nerves II through XII intact, motor and sensory function within normal limits, strength symmetrical with generalized weakness consistent with age, no focal deficits Psych-baseline dementia and confusion although improved from admission Results & Data Results & Data Vital Signs (Past 12 Hours) Vital Signs Temp Pulse Resp BP Pulse Ox Pulse Ox O2 Del Method 12/17/22 10:49 99 12/17/22 07:57 Nasal Cannula 12/17/22 07:15 36.3 C L 71 16 120/69 99 Nasal Cannula O2 Flow Rate O2 Flow Rate 12/17/22 10:49 2 12/17/22 07:57 2 12/17/22 07:15 2 Laboratory Results 12/17/22 03:27 12/17/22 03:27 PG Care Time/CCT Total # of Minutes Spent Total Time Spent with Patient: Total time spent is greater than 50% in coordination of care (as documented) at patient's floor/unit and/or counseling patient: Coding Level of Care Code 60847 SUB INP/OBS CARE 3/50MIN Diagnoses Sepsis A41.9 Sepsis acute organ dysfunction status: without acute organ dysfunction Sepsis type: sepsis due to unspecified organism Complicated UTI (urinary tract infection) N39.0 Metabolic encephalopathy G93.41 History of stroke Z86.73 Coronary artery disease involving autologous artery coronary bypass graft I25.810 (1) Sepsis Sepsis acute organ dysfunction status: without acute organ dysfunction Sepsis type: sepsis due to unspecified organism Qualified Code(s): A41.9 - Sepsis, unspecified organism
--- NOTE | 2022-12-17 17:53 | Electrocardiogram Report ---
Test Reason : Blood Pressure : / mmHG Vent. Rate : 112 BPM Atrial Rate : 112 BPM P-R Int : 208 ms QRS Dur : 098 ms QT Int : 320 ms P-R-T Axes : 063 -36 083 degrees QTc Int : 436 ms Sinus tachycardia with Premature supraventricular complexes and with occasional , and consecutive Pre mature ventricular complexes vs aberrancy Left axis deviation Minimal voltage criteria for LVH, may be normal variant Anteroseptal infarct (cited on or before 16-OCT-2020) Abnormal ECG Confirmed by Felix Ayala ([id number]) on 12/17/2022 5:53:03 PM Referred By: REFERRED SELF Confirmed By:Checo Ayala
[2022-12-17] MEDS ORDERED: MELATONIN 3 MG TAB PO PRN (19:51)
[2022-12-18] MEDS: DOXYCYCLINE HYCLATE 100 MG in DEXTROSE 5% 100 ML IV SCH (02:24)
[2022-12-18] MEDS: PIPERACILLIN/TAZOBACTAM 4.5 GM in DEXTROSE 5% 100 ML IV SCH (04:17)
[2022-12-18 06:53] LABS: Basophils # (auto) 0.06 K/uL (0-0.2); Basophils % (auto) 0.5 %; Eosinophils # (auto) 0.43 K/uL (0-0.50); Eosinophils % (auto) 3.5 %; Hemoglobin 11.8 g/dl (14.0-18.0); Immature Granulocytes # (auto) 0.05 K/uL (0.01-0.20); Immature Granulocytes % (auto) 0.4 %; Lymphocytes # (auto) 1.75 K/uL (1.2-3.4); Lymphocytes % (auto) 14.4 %; Mean Corpuscular Hemoglobin 31.8 pg (25.0-34.0); Mean Corpuscular Hgb Conc 35.8 g/dL (32.0-36.0); Mean Corpuscular Volume 88.9 fL (80.0-100.0); Mean Platelet Volume 9.9 fL (9.4-12.4); Monocytes # (auto) 1.76 K/uL (0.11-0.59); Monocytes % (auto) 14.5 %; Neutrophils % (auto) 66.7 %; Platelet Count 127 K/uL (130-400); RDW Coefficient of Variation 13.2 % (11.5-14.5); RDW Standard Deviation 43.1 fL (36.4-46.3); Red Blood Count 3.71 M/uL (4.70-6.10); White Blood Count 12.15 K/ul (4.8-10.8)
[2022-12-18 07:10] LABS: Albumin Globulin Ratio 1.3 (0.9-2); Albumin Level 3.2 gm/dl (3.4-5.0); BUN Creatinine Ratio 13.9 (10-20); Bilirubin,Total 1.2 mg/dl (0.2-1.0); Calcium 8.4 mg/dl (8.6-10.3); Creatinine Clr Calc Pharmacy 72.1 ml/min; Est GFR (African American) 96.9 ml/min; Est GFR (Non-African American) 83.6 ml/min; Globulin 2.4 gm/dl (2.5-4.0); Potassium 3.6 mmol/L (3.5-5.1); Total Protein 5.6 gm/dl (6.0-8.3)
[2022-12-18] MEDS: NYSTATIN POWDER 15GM BTL EXT SCH (08:44)
[2022-12-18] MEDS ORDERED: AMPICILLIN/SULBACTAM SOD 1,500 MG in 0.9 % SODIUM CHLORIDE 100 ML IV SCH (10:30)
--- NOTE | 2022-12-18 11:39 | Emergency Department Note ---
ED Visit Note I was consulted by the Advanced Practice Provider. I performed a substantive portion of the visit. This includes aspects of the HPI, MDM, diagnostic interpretations, and disposition/plan. Patient presents due to concern for sepsis did receive empiric Zosyn and doxycycline as well as IV fluids. Likely secondary to UTI. .
--- NOTE | 2022-12-18 13:09 | Discharge Summary ---
Date of Service December 18, 2022 Admission HPI Per Admitting Provider Keith Lopez is an 82yo male with history of prior CVA, HTN, Seizure, FELIX, indwelling Gamboa catheter and paroxysmal atrial tachycardia presenting with sepsis. Patient is not answering questions - does not fully participate in exam. History obtained through discussion with ER staff, chart review and family at bedside - and daughter. Patient had a recent UTI for which he was treated with antibiotics. He had a fo llowup UA in the clinic on 12/11/22 which was reportedly normal. reports that she thought the patient may be getting an infection for the last week. Yesterday he was active and participated in therapy and went for a walk but his daughter states that he was "spacey". This morning when he woke up he had an episode of fecal incontinence. He also had confusion and generalized weakness with inability to walk. He was unable to stand without assistance. Patient's symptoms progressed throughout the day. This evening prior to arrival he was very confused, agitated and "speaking gibberish". He also was unable to get out of his chair to walk to bed. Patient had decreased appetite and poor oral intake today. He was complaining of sharp pain in his left upper abdomen. No report of fever at home, no chest pain, cough or SOB. No vomiting or diarrhea but he did have two episodes of fecal incontinence. No recent tick exposure. Daughter reports Gamboa was changed on December 05. It has been functioning properly draining clear, yellow urine. No report of blood or sediment. Urine is occasionally cloudy. In the ER he is febrile at 39.2, elevated HR at 94bpm. Blood pressure is stabl e. He is saturating 93% on room air. ER Course: Tylenol Zosyn NSS Principal Diagnosis Klebsiella UTI, metabolic encephalopathy, equivocal Lyme testing, sepsis Discharge Exam General-awake and alert. Oriented to name only. No fevers, no chills HEENT-head atraumatic and normocephalic, pupils equal and reactive to light, extraocular muscles intact Neck-no lymphadenopathy or thyromegaly, trachea midline Chest-clear to auscultation percussion. No rales wheezing or rhonchi Cardiac-regular rate and rhythm, normal S1 and S2 Abdomen-normal bowel sounds, nontender, no hepatosplenomegaly Extremities-no cyanosis, clubbing, or edema Neuro-cranial nerves II through XII intact, motor and sensory function within normal limits, strength symmetrical with generalized weakness consistent with age, no focal deficits Psych-baseline dementia and confusion although improved from admission Discharge Data Allergies Allergy/AdvReac Type Severity Reaction Status Date / Time codeine AdvReac Intermediate GI SYMPTOMS Verified 11/13/22 13:39 Opioids - Morphine Analogues AdvReac Intermediate Vomiting Verified 11/13/22 13:39 Opioids-Meperidine and AdvReac Intermediate Vomiting Verified 11/13/22 13:39 Related Opioids-Methadone and Related AdvReac Intermediate Vomiting Verified 11/13/22 13:39 oxycodone [From Percocet] AdvReac Intermediate n/v Verified 11/13/22 13:39 Consultations 12/16/22 23:41 ED Decision to Admit Stat Ordered Studies 12/16/22 22:08 CT head/brain wo con Stat 12/16/22 23:49 CT abd pelvis wo con Routine Hospital Course (1) Sepsis: Present on admission. Now resolved. Blood cultures are negative (2) Complicated UTI (urinary tract infection): Due to indwelling [place] catheter. Klebsiella isolated. Zosyn switched to Unasyn. He will be discharged home on oral Keflex. He will also take oral doxycycline for the equivocal IgM Lyme testing (3) Metabolic encephalopathy: Present on admission. Now resolved (4) History of stroke: Continue current medical management. Stable (5) Coronary artery disease involving autologous artery coronary bypass graft: Stable. Continue current medical Plan Home today with home health services. The daughter is present and watched him ambulate with the assistance of a walker in the presence of physical therapy. She is satisfied that he is physically able to return home at this time and will not need SNF placement. Total Time Total Time Spent Total Time Spent (In Minutes): 45 minutes Discharge Plan Discharge Items Patient Disposition: Home - Home Health Services Reason For Visit: SEPSIS Discharge Diagnosis: Complicated UTI with Klebsiella secondary to indwelling Gamboa catheter, acute metabolic encephalopathy, sepsis present on admission, equivocal Lyme testing Condition on Discharge: Fair Activity: Resume your previous activity Non-emergency contact: Primary Care Provider Call non-emergency contact if: your symptoms worsen Follow-up/Referrals: Keith Smith MD [Primary Care Provider] - Diet: Regular and Heart Healthy Addtl Attending Provider Instructions: Take Keflex for 10 more days for the urinary tract infection. Take doxycycline for a total of 4 weeks for the equivocal Lyme testing positivity Pending Studies at Discharge: No Stand-Alone Forms: My [facility], Smoking Cessation Medications and DC Order Prescriptions: New cephalexin 500 mg capsule 500 mg PO TID 10 Days Qty: 30 0RF doxycycline hyclate 100 mg capsule 100 mg PO BID 28 Days Qty: 56 0RF Continued nystatin 100,000 unit/gram powder 1 applic topical BID Qty: 60 5RF Myrbetriq 25 mg tablet extended release 24 hr 25 mg PO QAM Qty: 30 3RF acetaminophen 500 mg Tablet 1,000 mg PO TID Rx Instructions: Do not exceed 3000mg a day ferrous sulfate 325 mg (65 mg iron) Tablet 325 mg PO BIDM acetaminophen 325 mg tablet 500 mg PO TID PRN (Reason: Mild Pain (Scale Score 1-4)) Rx Instructions: Do not exceed 4,000mg in 24 hours; AM, 1400, HS folic acid 1 mg tablet 1 mg PO QAM cholecalciferol (vitamin D3) [Vitamin D3] 50 mcg (2,000 unit) Tablet 50 mcg PO DAILY [id number]-tinaoc 300-600-300 mcg Tablet 1 tab PO DAILY Metamucil 3.4 gram/5.4 gram powder 1 tbsp PO DAILY Qty: 660 0RF Rx Instructions: mix into at least 8 oz of water or juice before administering Discharge Orders: Discharge Order (Routine); Ordered 12/18/22 Ordered By: Jt Rawls Admission Data Admit Date/Time: 12/16/22 23:58 Attending Provider: Jt Rawls Admit Provider: Renita Cain Primary Care Provider: Keith Smith Other Providers: Renita Cain Coding Level of Care Code 44724 INP/OBS DISCH >30 MIN Diagnoses Sepsis A41.9 Sepsis acute organ dysfunction status: without acute organ dysfunction Sepsis type: sepsis due to unspecified organism Complicated UTI (urinary tract infection) N39.0 Metabolic encephalopathy G93.41 History of stroke Z86.73 Coronary artery disease involving autologous artery coronary bypass graft I25.810
[2022-12-18] MEDS ORDERED: DOXYCYCLINE HYCLATE 100 MG CAP PO SCH (21:00)
[2022-12-19 13:37] LABS: 18KDIGG Band REACTIVE; 23KDIGG Band NON-REACTIVE; 23KDIGM Band NON-REACTIVE; 28KDIGG Band NON-REACTIVE; 30KDIGG Band NON-REACTIVE; 39KDIGG Band NON-REACTIVE; 39KDIGM Band NON-REACTIVE; 41KDIGG Band REACTIVE; 41KDIGM Band NON-REACTIVE; 45KDIGG Band NON-REACTIVE; 58KDIGG Band NON-REACTIVE; 66KDIGG Band NON-REACTIVE; 93KDIGG Band NON-REACTIVE; Lyme Antibodies, WB IgG NEGATIVE (NEGATIVE); Lyme Antibodies, WB IgM NEGATIVE (NEGATIVE)
[2022-12-19 19:02] LABS: Babesia microti DNA Not Detected (Not Detected)
== END 2022-12-18 16:56 | disposition home health service (06) | DRG 698 ==
LOC: ED 21:36 → 3E 23:58 → SUATTDRO 23:58 → 3E 12-17 02:05

== ENCOUNTER 2023-08-27 10:16 | Inpatient (IN) ==
--- NOTE | 2023-08-27 10:34 | Emergency Department Note ---
Impression & Plan Trouble swallowing, C. difficile colitis, Norovirus, Pseudomonas urinary tract infection ED Provider Note NAME: BRODERICK LOPEZ AGE: 82 SEX: M : 1940 ARRIVES VIA: Ambulance INFORMANT: Patient ED PROVIDER(S): Messi Wilson DO CHIEF COMPLAINT: AMS HPI: Patient is an 82-year-old male with a past medical history previously of dementia, C. difficile, seizure disorder, aortic valve replacement, who presents the ER brought in by EMS for altered mental status. They note that he has not been responsive this morning. He was last known well was around 7 PM last night. He has been nonverbal. Majority history is obtained from EMS who was present at bedside. Patient denies any headache, chest pain or belly pain. He denies any diarrhea. ADDITIONAL HISTORY OBTAINED: Per HPI Chronic Medical/Social Conditions Affecting Care: Per HPI PAST MEDICAL HISTORY:See Below PAST SURGICAL HISTORY:See Below FAMILY HISTORY:See Below SOCIAL HISTORY:See Below HOME MEDICATIONS:See Below ALLERGIES:See Below VITALS:See Below PHYSICAL EXAMINATION: GENERAL: Sitting up in bed, alert, well appearing, well nourished, no distress, non-toxic EYE EXAM: normal conjunctiva. PERRL and EOM's intact. OROPHARYNX:mucous membranes are dry NECK: supple, no nuchal rigidity, no adenopathy, non-tender LUNGS: Clear to auscultation. Normal chest wall mechanics HEART: no murmurs, S1 normal and S2 normal ABDOMEN: abdomen soft, non-tender, normo-active bowel sounds, no masses, no rebound or guarding. UPPER EXTREMITIES: upper extremities are grossly normal. LOWER EXTREMITIES: No pitting edema. NEURO EXAM: Oriented to person but not place or year, cranial nerves II-XII intact, normal speech, no weakness of arms, no weakness of legs. No drift. Bsspeo-ef-omgp intact. MEDICAL DECISION MAKING: Patient is an 82-year-old male who presents the ER per EMS for unresponsive/altered mental status. Based on this IV was established blood work was obtained. Labs showed no significant leukocytosis or anemia. INR unremarkable. BMP with mild hyponatremia at 131. LFTs bilirubin was unremarkable. Troponin negative. Lipase normal. UA did have nitrites leuks whites but greater than 30 epithelial cells. There was +2 bacteria. Upon review of previous external records/urine cultures it does show patient is growing out Pseudomonas with some intermittent sensitivities. CT of the head and abdomen pelvis was fairly unremarkable. showed up and notes that he has not been confused but rather he has been weak and since last night he has not been able to eat or drink anything as he spit everything back up and she is concerned for an obstruction in his esophagus. Patient was discussed with Dr. Zhang from gastroenterology and he recommends glucagon and he will scope if need be. I updated the in regards to this she was agreeable. Patient was persistently hypertensive with systolic pressures in the 190s. Patient was given hydralazine. He does not take any blood pressure medications. Discussed case with the hospitalist for observation overnight question of the elevated blood pressure secondary to pain from a possible esophageal food bolus however he looks completely comfortable. was updated at bedside patient was admitted and taken to endoscopy suite. Consults/Care Managements Discussions: Per [facility] Triage Nursing notes reviewed. Limited review of prior medical records performed Vital Signs: reviewed and remarkable for no significant abnormalities Differential diagnosis: Differential diagnoses includes but is not limited to toxic, metabolic, infectious, traumatic, cardiac, neurologic, hematologic, psychiatric and inflammatory etiologies. ER treatment provided: See below Diagnostics interpreted by me include EKG and cardiac monitoring as listed below: -Cardiac Monitoring: An order was placed for continuous cardiac monitoring. The monitor shows a rate of 80 with sinus rhythm. -ECG: Sinus rhythm rate 84 Left axis No PVCs QTc [address] wave changes in the high lateral leads -Laboratory studies:Interpreted by me as stated above in MDM and shown below. Imaging studies: Xrays: As interpreted by me: Portable AP upright 1 view of the chest shows no focal infiltrate CTs show: CT head and abdomen pelvis was unremarkable Procedures:none Critical Care: None Past Med/Surg History Medical History Coronary artery disease involving autologous artery coronary bypass graft Gross hematuria Hypertension History of bicuspid aortic valve Cerebral infarction, unspecified Aneurysm of aortic arch History of TIA (transient ischemic attack) SEPTEMBER 14, 2018 - (USUALLY TIA OCCURS 1X PER YR/STARTED 5 YR AGO)/DR FARRELL History of stroke 2012 - RESIDUAL: STABILITY ISSUE History of anesthesia reaction WITH HERNIA SURGERY ([place]) HAD TROUBLE WAKING UP Lyme disease Seizure X1 OR 2 - WHEN TX FOR STROKE IN 2012/ DR FARRELL Surgical History History of appendectomy (03/16/13) History of colonoscopy History of hernia surgery X2 History of repair of right rotator cuff H/O aortic valve replacement 2013 - AND BICUSPID VALVE REPLACED AT SAME TIME PER PT REPORT /"OPEN HEART" DENIES HAVING PETAL SHAPER HAND THAT HE FOLLOWS WITH H/O aortic aneurysm repair Family History Mother , age 70 of lung cancer Lung cancer COPD (chronic obstructive pulmonary disease) Father , age 91 of prostate cancer Prostate cancer Coronary heart disease Myocardial infarction Family/Other Breast cancer Cancer Other Heart disease No family history of adverse response to anesthesia No family history of bleeding disorder Social History Smoking Status: Never smoker Second Hand Exposure: No; Do You Dip or Chew Tobacco: No; Hx Alcohol Use: No Hx Substance Use: No Preferred Language: Mozambican Communication Ability: Effective Communication Ability Comment: , Roxana Lopez, is POA. Visual Impairment: No Limitations Hearing Ability: Normal Datastage Consultant Required: No Beliefs That Will Affect Care: None marital status: Current Living Situation: Alone current occupational status: retired Feels Safe at Home: Yes Assistive Devices: CPAP and Walker Allergies Allergies Allergy/AdvReac Type Severity Reaction Status Date / Time codeine AdvReac Intermediate GI SYMPTOMS Verified 08/27/23 14:32 Opioids - Morphine Analogues AdvReac Intermediate Vomiting Verified 08/27/23 14:32 Opioids-Meperidine and AdvReac Intermediate Vomiting Verified 08/27/23 14:32 Related Opioids-Methadone and Related AdvReac Intermediate Vomiting Verified 08/27/23 14:32 oxycodone [From Percocet] AdvReac Intermediate n/v Verified 08/27/23 14:32 Anesthesia AdvReac Severe Vomiting Uncoded 08/27/23 14:52 Home Meds Home Medications Medication Instructions Recorded Confirmed folic acid 1 mg tablet 1 mg PO QAM 10/13/22 08/27/23 acetaminophen 500 mg tablet 500 mg PO TID PRN mild pain 1-4 12/21/22 08/27/23 aspirin 81 mg capsule 81 mg PO QPM 03/07/23 08/27/23 ruplndpmyejp-bnw-bphyd acid-vit 1 tab PO DAILY 03/07/23 08/27/23 K-lycop 400 mcg-20 mcg-370 mcg tablet (Men's 50 Plus Multivitamin) cholecalciferol (vitamin D3) 25 25 mcg PO QPM 08/27/23 08/27/23 mcg (1,000 unit) tablet (Vitamin D3) methenamine hippurate 1 gram tablet 0 g PO BID 08/27/23 08/27/23 psyllium husk 3.4 gram/5.4 gram 0 tbsp PO DAILY 08/27/23 08/27/23 oral powder (Metamucil) Previous Rx's Medication Instructions Recorded mirabegron 25 mg tablet,extended 25 mg PO QAM #30 tabs 08/21/23 release 24 hr (Myrbetriq) fidaxomicin 200 mg tablet 200 mg PO BID 10 days #20 tabs 08/25/23 Results & Data (ED) Vital Signs Vital Signs - 24 hr 08/27/23 10:16 08/27/23 10:30 08/27/23 10:39 Temperature 36.5 C Temperature Source Oral Pulse Rate 85 83 Pulse Rate [Left Finger] Pulse Rate from SpO2 Sensor Pulse Rhythm [Left Finger] Pulse Strength [Left Finger] Respiratory Rate 24 Respiratory Effort / Characteristics Non-Labored Spontaneous Respiratory Depth Normal Respiratory Pattern Regular Blood Pressure 192/121 H Blood Pressure [Left Arm] Blood Pressure Mean 144 Blood Pressure Mean [Left Arm] Blood Pressure Position [Left Arm] Pulse Oximetry 94 94 Oxygen Delivery Method Room Air Room Air Sepsis Recent Fever Within 48 Hours No Sepsis New/Unexplained Change in Mental Status No Sepsis Action Taken by Nursing No Action Required 08/27/23 10:46 08/27/23 11:00 08/27/23 11:14 Temperature Temperature Source Pulse Rate 84 88 87 Pulse Rate [Left Finger] Pulse Rate from SpO2 Sensor 81 85 Pulse Rhythm [Left Finger] Pulse Strength [Left Finger] Respiratory Rate 18 26 H Respiratory Effort / Characteristics Respiratory Depth Respiratory Pattern Blood Pressure 184/118 H 186/124 H Blood Pressure [Left Arm] Blood Pressure Mean 140 144 Blood Pressure Mean [Left Arm] Blood Pressure Position [Left Arm] Pulse Oximetry 95 93 Oxygen Delivery Method Room Air Room Air Sepsis Recent Fever Within 48 Hours Sepsis New/Unexplained Change in Mental Status Sepsis Action Taken by Nursing 08/27/23 11:15 08/27/23 11:30 08/27/23 12:15 Temperature Temperature Source Pulse Rate 88 90 82 Pulse Rate [Left Finger] Pulse Rate from SpO2 Sensor 89 93 H 79 Pulse Rhythm [Left Finger] Pulse Strength [Left Finger] Respiratory Rate 18 20 21 Respiratory Effort / Characteristics Respiratory Depth Respiratory Pattern Blood Pressure 168/120 H 159/113 H 181/121 H Blood Pressure [Left Arm] Blood Pressure Mean 136 128 141 Blood Pressure Mean [Left Arm] Blood Pressure Position [Left Arm] Pulse Oximetry 94 92 92 Oxygen Delivery Method Room Air Room Air Room Air Sepsis Recent Fever Within 48 Hours Sepsis New/Unexplained Change in Mental Status Sepsis Action Taken by Nursing 08/27/23 12:30 08/27/23 12:45 08/27/23 13:00 Temperature Temperature Source Pulse Rate 79 81 91 H Pulse Rate [Left Finger] Pulse Rate from SpO2 Sensor 77 84 84 Pulse Rhythm [Left Finger] Pulse Strength [Left Finger] Respiratory Rate 18 23 20 Respiratory Effort / Characteristics Respiratory Depth Respiratory Pattern Blood Pressure 178/118 H 187/108 H 189/129 H Blood Pressure [Left Arm] Blood Pressure Mean 138 134 149 Blood Pressure Mean [Left Arm] Blood Pressure Position [Left Arm] Pulse Oximetry 95 93 93 Oxygen Delivery Method Room Air Room Air Room Air Sepsis Recent Fever Within 48 Hours Sepsis New/Unexplained Change in Mental Status Sepsis Action Taken by Nursing 08/27/23 13:15 08/27/23 13:30 08/27/23 13:45 Temperature Temperature Source Pulse Rate 82 84 87 Pulse Rate [Left Finger] Pulse Rate from SpO2 Sensor 79 84 84 Pulse Rhythm [Left Finger] Pulse Strength [Left Finger] Respiratory Rate 20 25 H 22 Respiratory Effort / Characteristics Respiratory Depth Respiratory Pattern Blood Pressure 190/127 H 193/118 H 206/138 H Blood Pressure [Left Arm] Blood Pressure Mean 148 143 160 Blood Pressure Mean [Left Arm] Blood Pressure Position [Left Arm] Pulse Oximetry 94 93 93 Oxygen Delivery Method Room Air Room Air Room Air Sepsis Recent Fever Within 48 Hours Sepsis New/Unexplained Change in Mental Status Sepsis Action Taken by Nursing 08/27/23 14:00 08/27/23 14:30 08/27/23 15:17 Temperature Temperature Source Pulse Rate 81 84 Pulse Rate [Left Finger] Pulse Rate from SpO2 Sensor 84 79 70 Pulse Rhythm [Left Finger] Pulse Strength [Left Finger] Respiratory Rate 25 H 22 20 Respiratory Effort / Characteristics Respiratory Depth Respiratory Pattern Blood Pressure 199/108 H 176/107 H 156/101 H Blood Pressure [Left Arm] Blood Pressure Mean 138 130 119 Blood Pressure Mean [Left Arm] Blood Pressure Position [Left Arm] Pulse Oximetry 92 92 91 Oxygen Delivery Method Room Air Room Air Room Air Sepsis Recent Fever Within 48 Hours Sepsis New/Unexplained Change in Mental Status Sepsis Action Taken by Nursing 08/27/23 15:45 Temperature 36.9 C Temperature Source Axillary Pulse Rate Pulse Rate [Left Finger] 78 Pulse Rate from SpO2 Sensor Pulse Rhythm [Left Finger] Regular Pulse Strength [Left Finger] Normal Respiratory Rate 16 Respiratory Effort / Characteristics Non-Labored Spontaneous Respiratory Depth Normal Respiratory Pattern Regular Blood Pressure Blood Pressure [Left Arm] 147/82 H Blood Pressure Mean Blood Pressure Mean [Left Arm] 103 Blood Pressure Position [Left Arm] Lying Pulse Oximetry 92 Oxygen Delivery Method Room Air Sepsis Recent Fever Within 48 Hours Sepsis New/Unexplained Change in Mental Status Sepsis Action Taken by Nursing Laboratory Data 08/27/23 10:30 08/27/23 12:06 Lab Results 08/27/23 08/27/23 08/27/23 Range/Units 10:30 12:06 12:11 WBC 10.68 (4.8-10.8) K/ul RBC 4.90 (4.70-6.10) M/uL Hgb 15.4 (14.0-18.0) g/dl Hct 43.4 (42.0-52.0) % MCV 88.6 (80.0-100.0) fL MCH 31.4 (25.0-34.0) pg MCHC 35.5 (32.0-36.0) g/dL RDW Std Deviation 43.3 (36.4-46.3) fL RDW Coeff of Stormy 13.2 (11.5-14.5) % Plt Count 178 (130-400) K/uL MPV 9.7 (9.4-12.4) fL Immature Gran % (Auto) 0.4 % Neut % (Auto) 83.3 % Lymph % (Auto) 9.0 % [place] % (Auto) 6.7 % Eos % (Auto) 0.3 % Baso % (Auto) 0.3 % Neut # (Auto) 8.90 H (1.40-6.50) K/uL Lymph # (Auto) 0.96 L (1.20-3.40) K/uL [place] # (Auto) 0.72 H (0.11-0.59) K/uL Eos # (Auto) 0.03 (0.00-0.50) K/uL Baso # (Auto) 0.03 (0.00-0.20) K/uL Immature Gran # (Auto) 0.04 (0.01-0.20) K/uL PT Cancelled 11.1 INR Cancelled 1.0 Sodium 131 L (136-145) mmol/L Potassium TNP 3.9 Chloride 98 (98-107) mmol/L Carbon Dioxide 26 (21-32) mmol/L Anion Gap 7 (3-11) BUN 11 (6-23) mg/dl Creatinine 0.74 (0.6-1.4) mg/dl Est Cr Clr Drug Dosing 84.5 ml/min Est GFR ( Amer) 99.6 ml/min Est GFR (Non-Af Amer) 85.9 ml/min BUN/Creatinine Ratio 14.9 (10-20) Glucose 110 H (70-99(Fasting)) mg/dl Calcium 8.9 (8.6-10.3) mg/dl Total Bilirubin 0.9 (0.2-1.0) mg/dl AST TNP 22 ALT 19 (7-52) U/L Alkaline Phosphatase 96 (34-104) U/L Troponin I High Sens 18.3 (0-20) pg/ml Total Protein 7.1 (6.0-8.3) gm/dl Albumin 3.9 (3.4-5.0) gm/dl Globulin 3.2 (2.5-4.0) gm/dl Albumin/Globulin Ratio 1.2 (0.9-2) Lipase 25 (11-82) U/L Urine Color Yellow Urine Appearance Cloudy A (Clear) Urine pH 8.0 H (4.5-7.5) Ur Specific [place] 1.029 (1.000-1.030) Urine Protein Negative (Negative) Urine Glucose (UA) Negative (Negative) Urine Ketones Negative (Negative) Urine Blood Negative (Negative) Urine Nitrite Positive A (Negative) Urine Bilirubin Negative (Negative) Urine Urobilinogen Negative (Negative) Ur Leukocyte Esterase 2+ H (Negative) Urine WBC (Auto) >30 H (0-5) /hpf Urine RBC (Auto) 0-4 (0-4) /hpf U Hyaline Cast (Auto) 0 (0-5) /lpf U Epithel Cells (Auto) >30 H (0-5) /lpf Urine Bacteria (Auto) 2+ H (Negative) Calcium Oxalate Crystal Present A (None Prsent) Amorphous Sediment Present A (None Prsent) Urine Yeast Not Reportable Administered Medications Discontinued Medications Hydralazine HCl (Hydralazine Hcl 20 Mg/Ml Vial) 5 mg IV NOW ONE Stop: 08/27/23 13:52 Last Admin: 08/27/23 14:00 Dose: Not Given Documented By: ROSELYN Hydralazine HCl (Hydralazine Hcl 20 Mg/Ml Vial) 10 mg IV NOW STA Stop: 08/27/23 15:10 Last Admin: 08/27/23 15:19 Dose: 10 mg Documented By: ROSELYN Sodium Chloride (Nss) 500 mls @ 999 mls/hr IV .Q31M ONE Stop: 08/27/23 11:00 Last Infusion: 08/27/23 12:00 Dose: Infused Documented By: Admin: 08/27/23 11:29 Dose: 999 mls/hr Documented By: ROSELYN Piperacillin Sod/Tazobactam Sod (Zosyn) 4.5 gm in 100 mls @ 200 mls/hr IV NOW ONE Stop: 08/27/23 14:07 Last Infusion: 08/27/23 15:29 Dose: 200 mls/hr Documented By: Infusion: 08/27/23 14:44 Dose: 0 mls/hr Documented By: Admin: 08/27/23 14:24 Dose: 200 mls/hr Documented By: SHEILA Glucagon (Glucagen) 0.5 mls @ 0.5 mls/min IV ONE ONE Stop: 08/27/23 13:39 Last Admin: 08/27/23 14:23 Dose: 0.5 mls/min Documented By: SHEILA Ioversol (Optiray 320 100ml) 92 ml IV ONCE ONE Stop: 08/27/23 12:00 Last Admin: 08/27/23 11:59 Dose: 92 ml Documented By: JAQUELIN Imaging Data Radiologist's Impression: Abdomen/Pelvis CT 08/27/23 10:29 CT SCAN OF THE ABDOMEN AND PELVIS WITH IV CONTRAST CLINICAL HISTORY: Nausea and vomiting. Change in mental status. COMPARISON STUDY: Abdominal CT dated 08/25/2023. TECHNIQUE: Following the IV administration of 92 cc of Optiray 320, CT scan of the abdomen and pelvis is performed from the lung bases to the proximal femora. Images are reviewed in the axial, sagittal, and coronal planes. IV contrast was administered without complication. A dose lowering technique was utilized adhering to the principles of ALARA. There is streak artifact from the arms which could not be elevated above the abdomen as well as motion artifact. CT DOSE: 1914.91 mGy.cm FINDINGS: Lung bases: The patient is status post midline sternotomy and aortic valve surgery. The heart is enlarged and without pericardial effusion. There are trace pleural effusions with dependent atelectasis. There is a gagrf-ql-bhasiiay hiatal hernia Liver: The contrast-enhanced liver is normal in size, contour, and attenuation. There is no intrahepatic biliary ductal dilatation. The hepatic veins and portal veins are patent. Gallbladder: There are calcified gallstones with no CT evidence of acute cholecystitis. Spleen: Normal in size and attenuation. Pancreas: Unremarkable. Adrenal glands: Unremarkable. Kidneys: The contrast enhanced kidneys are normal in size and without hydronephrosis. The kidneys enhance symmetrically. Bilateral renal cysts measuring up to 2.8 cm. Abdominal vasculature: The abdominal aorta is normal in course and caliber. Bowel: Moderate fecal retention is noted in the right colon. There is no bowel obstruction. There is focal wall thickening suggested in the ascending colon on axial image #197. The appendix is not visualized. Peritoneum: There is no intraperitoneal free air or abdominal ascites. Lymphadenopathy: None. Pelvic viscera: Evaluation of the pelvis is degraded by streak artifact from a left hip arthroplasty. The bladder is decompressed around a [place] catheter and not well evaluated. The prostate gland is enlarged and heterogeneous. There is evidence of previous left groin hernia repair. Skeletal structures: The skeletal structures are osteopenic. There is moderate lumbosacral spondylosis. There are bilateral pars defects at L5 with minimal anterolisthesis at L5-S1. No lytic or blastic lesions are seen. A left hip arthroplasty is in place. IMPRESSION: 1. No acute infectious or inflammatory findings are identified in the abdomen or pelvis. 2. Question focal wall thickening/narrowing of the ascending colon. This is not well assessed by CT, and if not recently performed a colonoscopy should be considered to evaluate for underlying mucosal lesion. 3. Cardiomegaly and trace pleural effusions. 4. Cholelithiasis. 5. Additional findings as above. ACT 112: Positive. There are findings on this exam that require communication between the performing entity and the patient following Patient Test Result Information Act ([place] Act 112) guidelines. Electronically signed by: David Greer M.D. 08/27/2023 12:[address] 08/27/23 10:29 CT SCAN OF THE BRAIN WITHOUT IV CONTRAST CLINICAL HISTORY: Change in mental status. COMPARISON STUDY: CT of the brain dated 03/07/2023. TECHNIQUE: Unenhanced axial CT scan of the brain is performed from the vertex to the skull base. A dose lowering technique was utilized adhering to the principles of ALARA. FINDINGS: Brain parenchyma: There is age-related involutional change noting moderate subcortical and periventricular microangiopathic disease. There is no hemorrhage, mass effect, or evidence of acute territorial ischemia by CT criteria. Fu-white matter differentiation is preserved. No extra-axial fluid collection is seen. Ventricles, sulci, cisterns: Prominent secondary to involutional change. Intracranial vasculature: There is atherosclerotic calcification of the cavernous carotid and vertebral arteries. Calvarium: Unremarkable. Sinuses and mastoids: The visualized paranasal sinuses are clear. The mastoid air cells are well pneumatized. Orbits: The bony orbits are grossly intact. IMPRESSION: There is no hemorrhage, mass effect, or evidence of acute territorial ischemia by CT criteria. ACT 112: Negative or not required by law. Electronically signed by: David Greer M.D. 08/27/2023 12:07 PM Chest X-Ray 08/27/23 10:30 SINGLE VIEW CHEST CLINICAL HISTORY: Atypical chest pain. FINDINGS: An AP, portable, upright chest radiograph is compared to study dated 08/25/2023 and correlated with chest CT dated 10/13/2022. The patient is status post midline sternotomy. The heart is enlarged at noting atherosclerotic calcification of the thoracic aorta. The pulmonary vasculature is noncongested. Chronic interstitial thickening is similar to previous. There is bibasilar scarring/atelectasis. The lungs and pleural spaces are clear. No pneumothorax is seen. The skeletal structures are osteopenic. The bony thorax is grossly intact. IMPRESSION: Cardiomegaly with no acute cardiopulmonary abnormality. ACT 112: Negative or not required by law. Electronically signed by: David Greer M.D. 08/27/2023 10:59 AM Brain MRI 08/27/23 14:13 MRI OF THE BRAIN WITHOUT IV CONTRAST CLINICAL HISTORY: Change in mental status. COMPARISON STUDY: CT of the brain dated 08/27/2023. TECHNIQUE: MRI of the brain was performed utilizing various T1 and T2-weighted sequences in the axial, sagittal, and coronal planes. IV contrast was not administered for this examination. FINDINGS: Brain parenchyma: There is age-related involutional change noting moderate confluent subcortical and periventricular microangiopathic disease. There is no hemorrhage or mass effect. There is no restricted diffusion to suggest acute ischemia. Fu-white matter differentiation is preserved. No extra-axial fluid collection is seen. The cerebellar tonsils are normal in configuration. Ventricles, sulci, and cisterns: Prominent secondary to involutional change. Pituitary and sella: Unremarkable. Intracranial vasculature: Normal flow voids are maintained at the skull base. Orbits: The bony orbits are grossly intact. Orbital contents are normal in appearance. Sinuses and mastoids: A 1 cm retention cyst is noted in the right maxillary antrum. The remaining paranasal sinuses and mastoid air cells are clear. Calvarium: Unremarkable. Cervical cord: Partially visualized cervical spinal cord is normal in morphology and signal intensity. IMPRESSION: No acute intracranial abnormality. ACT 112: Negative or not required by law. Electronically signed by: David Greer M.D. 08/27/2023 3:06 PM Discharge Plan Visit Data Chief Complaint: Illness Stated Complaint: ILLNESS ED Provider: Messi Wilson Discharge Problem: Trouble swallowing, C. difficile colitis, Norovirus, Pseudomonas urinary tract infection Patient Disposition: Admitted As Inpatient Discharge Instructions Interventions: ED Discharge Assessment Last Done: 08/27/23 15:39 Forms Stand Alone Forms: [employer] Prescriptions Prescriptions: No Action Myrbetriq 25 mg tablet extended release 24 hr 25 mg PO QAM Qty: 30 3RF Men's 50 Plus Multivitamin 400-20-370 mcg tablet 1 tab PO DAILY aspirin 81 mg capsule 81 mg PO QPM acetaminophen 500 mg Tablet 500 mg PO TID MDD 4G PRN (Reason: mild pain 1-4) Rx Instructions: am,1400 & hs folic acid 1 mg tablet 1 mg PO QAM fidaxomicin 200 mg tablet 200 mg PO BID 10 Days Qty: 20 0RF Rx Instructions: Start Date 08/24/23 - End Date 09/03/23: Pt has 1 dose on 08/24/23 and 2 doses on 08/25/23 and 1 dose on 08/26/23. cholecalciferol (vitamin D3) [Vitamin D3] 25 mcg (1,000 unit) Tablet 25 mcg PO QPM methenamine hippurate 1 gram tablet 0 g PO BID Rx Instructions: Currently on hold as pt is taking Dificid Metamucil 3.4 gram/5.4 gram powder 0 tbsp PO DAILY Rx Instructions: Currently on hold as pt is taking Dificid Referrals Referrals: Broderick Smith MD [Primary Care Provider] - Discharge Problem: Trouble swallowing Qualifiers: Dysphagia type: unspecified Qualified Code(s): R13.10 - Dysphagia, unspecified
--- NOTE | 2023-08-27 11:01 | XRay Report ---
SINGLE VIEW CHEST CLINICAL HISTORY: Atypical chest pain. FINDINGS: An AP, portable, upright chest radiograph is compared to study dated 08/25/2023 and correlat ed with chest CT dated 10/13/2022. The patient is status post midline sternotomy. The heart is enlarged at noting atherosclerotic calcification of the thoracic aorta. The pulmonary vasculature is nonconge sted. Chronic interstitial thickening is similar to previous. There is bibasilar scarring/atelectasis . The lungs and pleural spaces are clear. No pneumothorax is seen. The skeletal structures are osteop enic. The bony thorax is grossly intact. IMPRESSION: Cardiomegaly with no acute cardiopulmonary abnormality. ACT 112: Negative or not required by law. Electronically signed by: David Greer M.D. 08/27/2023 10:59 AM
[2023-08-27 11:07] LABS: Basophils # (auto) 0.03 K/uL (0.00-0.20); Basophils % (auto) 0.3 %; Eosinophils # (auto) 0.03 K/uL (0.00-0.50); Eosinophils % (auto) 0.3 %; Hematocrit (blood only) 43.4 % (42.0-52.0); Hemoglobin 15.4 g/dl (14.0-18.0); Immature Granulocytes # (auto) 0.04 K/uL (0.01-0.20); Immature Granulocytes % (auto) 0.4 %; Lymphocytes # (auto) 0.96 K/uL (1.20-3.40); Mean Corpuscular Hemoglobin 31.4 pg (25.0-34.0); Mean Corpuscular Hgb Conc 35.5 g/dL (32.0-36.0); Mean Corpuscular Volume 88.6 fL (80.0-100.0); Mean Platelet Volume 9.7 fL (9.4-12.4); Monocytes # (auto) 0.72 K/uL (0.11-0.59); Monocytes % (auto) 6.7 %; Neutrophils % (auto) 83.3 %; Platelet Count 178 K/uL (130-400); RDW Coefficient of Variation 13.2 % (11.5-14.5); RDW Standard Deviation 43.3 fL (36.4-46.3); White Blood Count 10.68 K/ul (4.8-10.8)
[2023-08-27] MEDS: SODIUM CHLORIDE 0.9% 500 ML IV ONE (11:29)
[2023-08-27 11:37] LABS: Alanine Aminotransferase 19 U/L (7-52); Albumin Globulin Ratio 1.2 (0.9-2); Albumin Level 3.9 gm/dl (3.4-5.0); Alkaline Phosphatase 96 U/L (34-104); Anion Gap 7 (3-11); BUN Creatinine Ratio 14.9 (10-20); Bilirubin,Total 0.9 mg/dl (0.2-1.0); Blood Urea Nitrogen 11 mg/dl (6-23); Calcium 8.9 mg/dl (8.6-10.3); Carbon Dioxide 26 mmol/L (21-32); Chloride 98 mmol/L (98-107); Creatinine Clr Calc Pharmacy 84.5 ml/min; Est GFR (African American) 99.6 ml/min; Est GFR (Non-African American) 85.9 ml/min; Globulin 3.2 gm/dl (2.5-4.0); Glucose 110 mg/dl (70-99(Fasting)); Lipase 25 U/L (11-82); Sodium 131 mmol/L (136-145); Total Protein 7.1 gm/dl (6.0-8.3)
[2023-08-27 11:44] LABS: Troponin I High Sensitivity 18.3 pg/ml (0-20)
[2023-08-27] MEDS: OPTIRAY 320 100ml IV ONE (11:59)
--- NOTE | 2023-08-27 12:09 | CT Scan Report ---
CT SCAN OF THE BRAIN WITHOUT IV CONTRAST CLINICAL HISTORY: Change in mental status. COMPARISON STUDY: CT of the brain dated 03/07/2023. TECHNIQUE: Unenhanced axial CT scan of the brain is performed from the vertex to the skull base. A do se lowering technique was utilized adhering to the principles of ALARA. FINDINGS: Brain parenchyma: There is age-related involutional change noting moderate subcortical and periventri cular microangiopathic disease. There is no hemorrhage, mass effect, or evidence of acute territorial ischemia by CT criteria. Fu-white matter differentiation is preserved. No extra-axial fluid collec tion is seen. Ventricles, sulci, cisterns: Prominent secondary to involutional change. Intracranial vasculature: There is atherosclerotic calcification of the cavernous carotid and vertebr al arteries. Calvarium: Unremarkable. Sinuses and mastoids: The visualized paranasal sinuses are clear. The mastoid air cells are well pneu matized. Orbits: The bony orbits are grossly intact. IMPRESSION: There is no hemorrhage, mass effect, or evidence of acute territorial ischemia by CT anjel lin. ACT 112: Negative or not required by law. Electronically signed by: David Greer M.D. 08/27/2023 12:07 PM
--- NOTE | 2023-08-27 12:31 | CT Scan Report ---
CT SCAN OF THE ABDOMEN AND PELVIS WITH IV CONTRAST CLINICAL HISTORY: Nausea and vomiting. Change in mental status. COMPARISON STUDY: Abdominal CT dated 08/25/2023. TECHNIQUE: Following the IV administration of 92 cc of Optiray 320, CT scan of the abdomen and pelvi s is performed from the lung bases to the proximal femora. Images are reviewed in the axial, sagittal , and coronal planes. IV contrast was administered without complication. A dose lowering technique wa s utilized adhering to the principles of ALARA. There is streak artifact from the arms which could no t be elevated above the abdomen as well as motion artifact. CT DOSE: 1914.91 mGy.cm FINDINGS: Lung bases: The patient is status post midline sternotomy and aortic valve surgery. The heart is enla rged and without pericardial effusion. There are trace pleural effusions with dependent atelectasis. There is a quczx-xj-eqqegobn hiatal hernia Liver: The contrast-enhanced liver is normal in size, contour, and attenuation. There is no intrahepa tic biliary ductal dilatation. The hepatic veins and portal veins are patent. Gallbladder: There are calcified gallstones with no CT evidence of acute cholecystitis. Spleen: Normal in size and attenuation. Pancreas: Unremarkable. Adrenal glands: Unremarkable. Kidneys: The contrast enhanced kidneys are normal in size and without hydronephrosis. The kidneys enh ance symmetrically. Bilateral renal cysts measuring up to 2.8 cm. Abdominal vasculature: The abdominal aorta is normal in course and caliber. Bowel: Moderate fecal retention is noted in the right colon. There is no bowel obstruction. There is focal wall thickening suggested in the ascending colon on axial image #197. The appendix is not visu alized. Peritoneum: There is no intraperitoneal free air or abdominal ascites. Lymphadenopathy: None. Pelvic viscera: Evaluation of the pelvis is degraded by streak artifact from a left hip arthroplasty. The bladder is decompressed around a Gamboa catheter and not well evaluated. The prostate gland is en larged and heterogeneous. There is evidence of previous left groin hernia repair. Skeletal structures: The skeletal structures are osteopenic. There is moderate lumbosacral spondylosi s. There are bilateral pars defects at L5 with minimal anterolisthesis at L5-S1. No lytic or blastic lesions are seen. A left hip arthroplasty is in place. IMPRESSION: 1. No acute infectious or inflammatory findings are identified in the abdomen or pelvis. 2. Question focal wall thickening/narrowing of the ascending colon. This is not well assessed by CT, and if not recently performed a colonoscopy should be considered to evaluate for underlying mucosal l esion. 3. Cardiomegaly and trace pleural effusions. 4. Cholelithiasis. 5. Additional findings as above. ACT 112: Positive. There are findings on this exam that require communication between the performing entity and the patient following Patient Test Result Information Act ([place] Act 112) guidelines. Electronically signed by: David Greer M.D. 08/27/2023 12:30 PM
[2023-08-27 12:40] LABS: Potassium 3.9 mmol/L (3.5-5.1)
[2023-08-27 12:48] LABS: Appearance Urine Cloudy (Clear); Bacteria Urine Automated 2+ (Negative); Bilirubin Urine Negative (Negative); Blood Urine Negative (Negative); Color Urine Yellow; Epithelial Cell Urine Auto >30 /lpf (0-5); Glucose Urine UA Negative (Negative); Ketones Urine Negative (Negative); Leukocyte Esterase Urine 2+ (Negative); Nitrite Urine Positive (Negative); Protein Urine Negative (Negative); RBC Urine Automated 0-4 /hpf (0-4); Specific Gravity Urine 1.029 (1.000-1.030); Urobilinogen Urine Negative (Negative); WBC Urine Automated >30 /hpf (0-5)
[2023-08-27 12:53] LABS: Prothrombin Time 11.1 Seconds (9.0-12.0)
[2023-08-27 13:08] LABS: Amorphous Sediment Urine Present (None Prsent); Calcium Oxalate Crystals Urine Present (None Prsent); Cast Urine Automated 0 /lpf (0-5)
--- NOTE | 2023-08-27 13:59 | History & Physical Report ---
Date of Service August 27, 2023 History of Present Illness Chief Complaint: Decreased mental status, choking episode, nausea/vomiting Primary Care Provider: Keith Smith MD Allergies Allergy/AdvReac Type Severity Reaction Status Date / Time codeine AdvReac Intermediate GI SYMPTOMS Verified 07/09/23 11:01 Opioids - Morphine Analogues AdvReac Intermediate Vomiting Verified 07/09/23 11:01 Opioids-Meperidine and AdvReac Intermediate Vomiting Verified 07/09/23 11:01 Related Opioids-Methadone and Related AdvReac Intermediate Vomiting Verified 07/09/23 11:01 oxycodone [From Percocet] AdvReac Intermediate n/v Verified 07/09/23 11:01 Home Medications Medication Instructions Recorded Confirmed Type cholecalciferol (vitamin D3) 50 50 mcg PO DAILY 10/13/22 07/14/23 History mcg (2,000 unit) tablet (Vitamin D3) folic acid 1 mg tablet 1 mg PO QAM 10/13/22 07/14/23 History psyllium husk 3.4 gram/5.4 gram 1 tbsp PO DAILY #660 grams 10/19/22 07/14/23 Rx oral powder (Metamucil) acetaminophen 500 mg tablet 500 mg PO TID PRN mild pain 1-4 12/21/22 07/14/23 History aspirin 81 mg capsule 81 mg PO DAILY 03/07/23 07/14/23 History panvckdrpngu-edy-ahclw acid-vit 1 tab PO DAILY 03/07/23 07/14/23 History K-lycop 400 mcg-20 mcg-370 mcg tablet (Men's 50 Plus Multivitamin) cefdinir 300 mg capsule 300 mg PO BID 10 days #20 caps 07/18/23 Rx vancomycin 50 mg/mL oral solution 125 mg (2.5 mL) PO QID #150 mL 07/30/23 Rx methenamine hippurate 1 gram tablet 1 g PO BID #60 tabs 08/08/23 Rx mirabegron 25 mg tablet,extended 25 mg PO QAM #30 tabs 08/21/23 Rx release 24 hr (Myrbetriq) fidaxomicin 200 mg tablet 200 mg PO BID 10 days #20 tabs 08/25/23 Rx Past Med/Surg History Medical History Coronary artery disease involving autologous artery coronary bypass graft Gross hematuria Hypertension History of bicuspid aortic valve Cerebral infarction, unspecified Aneurysm of aortic arch History of TIA (transient ischemic attack) SEPTEMBER 14, 2018 - (USUALLY TIA OCCURS 1X PER YR/STARTED 5 YR AGO)/DR FARRELL History of stroke 2012 - RESIDUAL: STABILITY ISSUE History of anesthesia reaction WITH HERNIA SURGERY ([facility]) HAD TROUBLE WAKING UP Lyme disease Seizure X1 OR 2 - WHEN TX FOR STROKE IN 2012/ DR FARRELL Surgical History History of appendectomy (03/16/13) History of colonoscopy History of hernia surgery X2 History of repair of right rotator cuff H/O aortic valve replacement 2013 - AND BICUSPID VALVE REPLACED AT SAME TIME PER PT REPORT /"OPEN HEART" DENIES 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 H/O aortic aneurysm repair Family History Mother , age 70 of lung cancer Lung cancer COPD (chronic obstructive pulmonary disease) Father , age 91 of prostate cancer Prostate cancer Coronary heart disease Myocardial infarction Family/Other Breast cancer Cancer Other Heart disease No family history of adverse response to anesthesia No family history of bleeding disorder Social History Smoking Status: Never smoker Second Hand Exposure: No; Do You Dip or Chew Tobacco: No; Hx Alcohol Use: No Hx Substance Use: No Preferred Language: Cypriot Communication Ability: Effective Communication Ability Comment: , Roxana Lopez, is POA. Visual Impairment: No Limitations Hearing Ability: Normal Court Of Appeals Judge Required: No Beliefs That Will Affect Care: None marital status: Current Living Situation: Alone current occupational status: retired Feels Safe at Home: Yes Assistive Devices: CPAP and Walker Results & Data Results & Data Vital Signs (Past 12 Hours) Vital Signs Temp Pulse Resp BP Pulse Ox O2 Del Method 08/27/23 13:30 84 25 H 193/118 H 93 Room Air 08/27/23 13:15 82 20 190/127 H 94 Room Air 08/27/23 13:00 91 H 20 189/129 H 93 Room Air 08/27/23 12:45 81 23 187/108 H 93 Room Air 08/27/23 12:30 79 18 178/118 H 95 Room Air 08/27/23 12:15 82 21 181/121 H 92 Room Air 08/27/23 11:30 90 20 159/113 H 92 Room Air 08/27/23 11:15 88 18 168/120 H 94 Room Air 08/27/23 11:14 87 08/27/23 11:00 88 26 H 186/124 H 93 Room Air 08/27/23 10:46 84 18 184/118 H 95 Room Air 08/27/23 10:39 83 08/27/23 10:30 94 Room Air 08/27/23 10:16 36.5 C 85 24 192/121 H 94 Room Air PG Care Time/CCT Total # of Minutes Spent Total Time Spent with Patient: Total time spent is greater than 50% in coordination of care (as documented) at patient's floor/unit and/or counseling patient: Coding
[2023-08-27] MEDS: hydrALAZINE HCL 20 MG/ML VIAL IV ONE (14:00)
[2023-08-27] MEDS ORDERED: LIDOCAINE 2% 2 ML VIAL/AMP(20MG/ML) INFIL ONE (14:13)
[2023-08-27] MEDS ORDERED: PROPOFOL IV EMULSION 10 MG/ML 20 ML VIAL IV ONE (14:13)
[2023-08-27] MEDS ORDERED: fentaNYL citrate PF 100 MCG/2 ML VIAL ONE (14:13)
[2023-08-27] MEDS ORDERED: ONDANSETRON INJ 2 MG/ML 2 ML VIAL ONE (14:13)
[2023-08-27] MEDS: GLUCAGON 0.5 ML IV ONE (14:23)
[2023-08-27] MEDS: PIPERACILLIN/TAZOBACTAM 4.5 GM/100 ML BAG IV ONE (14:24)
[2023-08-27] MEDS ORDERED: ACETAMINOPHEN 1,000 MG/100 ML VIAL IV PRN (14:27)
--- NOTE | 2023-08-27 14:37 | History & Physical Report ---
Date of Service August 27, 2023 Assessment & Plan (1) Altered mental status: Plan: Assessment: 1. Acute metabolic encephalopathy which is multifactorial from multiple infectious processes. Please see below. 2. Acute C. difficile colitis. We will continue Dificid, oral vancomycin. Consult infectious disease. He has been unable to take oral pills the last 36 hours due to his possible food bolus obstruction. 3. Acute norovirus. Supportive care. Isolate appropriately. 4. Multidrug-resistant Pseudomonas urinary tract infection. With chronic indwelling Gamboa catheter. We will treat with Zosyn at this time and obtain infectious disease consultation service and the above. 5. Clinical hypovolemia dehydration. IV fluids. 6. Rule out stroke. MRI will be obtained. If MRI is negative for stroke we will bring the patient's blood pressure down with medication. 7. Hypertension with no history of hypertension. Again will await MRI results if negative for stroke we will bring the blood pressure will have patient continue to autoregulate. 8. Answering dementia. The patient's the patient's dementia has been progressively getting worse over the last few months to a year. 9. History of seizure disorder-seizure precautions have been ordered. 10. History of CVA in the past. 10. History of aortic valve stenosis secondary to bicuspid aortic valve status post bovine aortic valve replacement. 11. Chronic urinary outlet obstruction with chronic indwelling Gamboa catheter. 12. Hypovolemic hyponatremia. We will hydrate and monitor. Plan: As discussed above. Please refer to orders for further planning. History of Present Illness Chief Complaint: Keith Lopez is an 82yo male with history of recurrent C.diff infections, prior CVA, dementia, HTN, Seizure, FELIX, indwelling Gamboa catheter and paroxysmal atrial tachycardia who presented to the [facility] via EMS on 08/27/23 due to increased weakness and recurrent vomiting. He was noted to be hypertensive at 192/121 on arrival but otherwise stable. Labs were significant for a sodium of 131 (baseline is near 133). The patient was seen in the [facility] ED on 08/25/23 for abdominal pain and increased mucus/blood in his stool. He had been receiving outpatient treatment for current c. diff infection. He was found to have a leukocytosis of 11 and sodium of 133. Stool studies were positive for c. diff toxin A and norovirus. CT of the abd/pelvis w/IV con was read as 1. Mild thickening of the rectal wall may represent stercoral colitis. The remainder of the bowel is unremarkable. 2. Prostatomegaly with bladder outlet obstruction. His UA was noted to have trace ketones, nitrite positive, 3+ leukocyte esterase, > 30 WBC, but negative for bacteria. The patient was discharged home with a prescription for Dificid. Today, Chest xray and CT of the head/brain wo con were read as negative for acute findings. CT of the abd/pelvis w/IV con was read as 1. No acute infectious or inflammatory findings are identified in the abdomen or pelvis. 2. Question focal wall thickening/narrowing of the ascending colon. This is not well assessed by CT, and if not recently performed a colonoscopy should be considered to evaluate for underlying mucosal lesion. 3. Cardiomegaly and trace pleural effusions. 4. Cholelithiasis. 5. Additional findings as above. Prior to admission the patient was given 500 mL NSS, one dose of Zosyn, and 0.5 mls IV glucagon. We will continue the Zosyn at this time will obtain consultation with the infectious disease at this time but given this the recurrent C. difficile and given indwelling Gamboa catheter with recurrent multidrug-resistant Pseudomonas.. In addition we will do a stat MRI of the brain. Given the fact he is hypertensive and altered mentation. Question is that the patient may be having an acute stroke leading to his altered mentation and he is auto regulating with his current hypertension. Versus, could the patient have hypertensive encephalopathy. The patient is untreated for hypertension as no history of hypertension has multiple and an infectious acute processes with associated dehydration and is hypertensive which 1 would expect the opposite. Pending MRI we will treat the blood pressure appropriately -either allowing Permissive hypertension if acute CVA is present versus bring his blood pressure down. Most of the following history and above history obtained from the patient's and the medical record. The patient's an excellent historian the patient himself can provide no meaningful history Primary Care Provider: Keith Smith MD Please see above. Allergies Allergy/AdvReac Type Severity Reaction Status Date / Time codeine AdvReac Intermediate GI SYMPTOMS Verified 08/27/23 14:32 Opioids - Morphine Analogues AdvReac Intermediate Vomiting Verified 08/27/23 14:32 Opioids-Meperidine and AdvReac Intermediate Vomiting Verified 08/27/23 14:32 Related Opioids-Methadone and Related AdvReac Intermediate Vomiting Verified 08/27/23 14:32 oxycodone [From Percocet] AdvReac Intermediate n/v Verified 08/27/23 14:32 Home Medications Medication Instructions Recorded Confirmed Type cholecalciferol (vitamin D3) 50 50 mcg PO DAILY 10/13/22 07/14/23 History mcg (2,000 unit) tablet (Vitamin D3) folic acid 1 mg tablet 1 mg PO QAM 10/13/22 07/14/23 History psyllium husk 3.4 gram/5.4 gram 1 tbsp PO DAILY #660 grams 10/19/22 07/14/23 Rx oral powder (Metamucil) acetaminophen 500 mg tablet 500 mg PO TID PRN mild pain 1-4 12/21/22 07/14/23 History aspirin 81 mg capsule 81 mg PO DAILY 03/07/23 07/14/23 History rvpwjqdqmuym-dqy-repqu acid-vit 1 tab PO DAILY 03/07/23 07/14/23 History K-lycop 400 mcg-20 mcg-370 mcg tablet (Men's 50 Plus Multivitamin) cefdinir 300 mg capsule 300 mg PO BID 10 days #20 caps 07/18/23 Rx vancomycin 50 mg/mL oral solution 125 mg (2.5 mL) PO QID #150 mL 07/30/23 Rx methenamine hippurate 1 gram tablet 1 g PO BID #60 tabs 08/08/23 Rx mirabegron 25 mg tablet,extended 25 mg PO QAM #30 tabs 08/21/23 Rx release 24 hr (Myrbetriq) fidaxomicin 200 mg tablet 200 mg PO BID 10 days #20 tabs 08/25/23 Rx Past Med/Surg History Medical History Coronary artery disease involving autologous artery coronary bypass graft Gross hematuria Hypertension History of bicuspid aortic valve Cerebral infarction, unspecified Aneurysm of aortic arch History of TIA (transient ischemic attack) SEPTEMBER 14, 2018 - (USUALLY TIA OCCURS 1X PER YR/STARTED 5 YR AGO)/DR FARRELL History of stroke 2012 - RESIDUAL: STABILITY ISSUE History of anesthesia reaction WITH HERNIA SURGERY ([place]) HAD TROUBLE WAKING UP Lyme disease Seizure X1 OR 2 - WHEN TX FOR STROKE IN 2012/ DR FARRELL Surgical History History of appendectomy (03/16/13) History of colonoscopy History of hernia surgery X2 History of repair of right rotator cuff H/O aortic valve replacement 2014 - AND BICUSPID VALVE REPLACED AT SAME TIME PER PT REPORT /"OPEN HEART" 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 H/O aortic aneurysm repair Family History Mother , age 70 of lung cancer Lung cancer COPD (chronic obstructive pulmonary disease) Father , age 91 of prostate cancer Prostate cancer Coronary heart disease Myocardial infarction Family/Other Breast cancer Cancer Other Heart disease No family history of adverse response to anesthesia No family history of bleeding disorder Social History Smoking Status: Never smoker Second Hand Exposure: No; Do You Dip or Chew Tobacco: No; Hx Alcohol Use: No Hx Substance Use: No Preferred Language: Luxembourgish Communication Ability: Effective Communication Ability Comment: , Roxana Lopez, is POA. 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 Again obtained from the patient's . Physical Exam Physical Exam: In General: In general this is a pleasant 82-year-old male who is alert at the time of my examination. He follows all commands to grasp my hands on command he moves both lower extremities on command. He says " tressa Piper". He asked the girls to "leave his room" he said "I am doing pretty good",. HEENT: Normocephalic atraumatic pupils are equal round and reactive to light bilaterally. No scleral icterus no conjunctival injection external auditory canals are patent septum is in the midline nose is without discharge oral mucosa is pink and moist without lesion. His mucous membranes are extremely dry. He is not having any trouble swallowing at this time. However he does have dry mucous membranes as discussed. He has little oral secretions. NECK: Supple no rigidity no lymphadenopathy no thyromegaly no carotid bruits no JVD no masses. HEART: Regular rate and rhythm I do not appreciate any ectopy or rub. No murmur. LUNGS: Lungs are diminished bilaterally however I do not appreciate any adventitious sounds. ABDOMEN: Soft nontender, no rebound, no peritoneal signs, positive bowel sounds, no appreciable organomegaly. Chronic indwelling Gamboa catheter is noted. EXTREMITIES: Intact, no peripheral cyanosis, clubbing or edema. Strength is 5 out of 5 in extremities x4, no pathological reflexes. NEUROLOGICAL: Patient is unable to fully cooperate with cranial nerve exam given his level of mentation. However according to the patient's he appears to be essentially at his baseline mental status currently.. Results & Data Results & Data Vital Signs (Past 12 Hours) Vital Signs Temp Pulse Resp BP Pulse Ox O2 Del Method 08/27/23 13:45 87 22 206/138 H 93 Room Air 08/27/23 13:30 84 25 H 193/118 H 93 Room Air 08/27/23 13:15 82 20 190/127 H 94 Room Air 08/27/23 13:00 91 H 20 189/129 H 93 Room Air 08/27/23 12:45 81 23 187/108 H 93 Room Air 08/27/23 12:30 79 18 178/118 H 95 Room Air 08/27/23 12:15 82 21 181/121 H 92 Room Air 08/27/23 11:30 90 20 159/113 H 92 Room Air 08/27/23 11:15 88 18 168/120 H 94 Room Air 08/27/23 11:14 87 08/27/23 11:00 88 26 H 186/124 H 93 Room Air 08/27/23 10:46 84 18 184/118 H 95 Room Air 08/27/23 10:39 83 08/27/23 10:30 94 Room Air 08/27/23 10:16 36.5 C 85 24 192/121 H 94 Room Air Code Status & VTE Plan Code Status Full code-we did personally discuss with the patient's . VTE Prophylaxis Plan VTE Prophylaxis will be ordered: Yes PG Care Time/CCT Total # of Minutes Spent Total Time Spent with Patient: Total time spent is greater than 50% in coordination of care (as documented) at patient's floor/unit and/or counseling patient: Coding Level of Care Code 72246 INT INP/OBS CARE 375MIN Diagnoses Altered mental status R41.82
--- NOTE | 2023-08-27 15:07 | Magnetic Resonance Report ---
MRI OF THE BRAIN WITHOUT IV CONTRAST CLINICAL HISTORY: Change in mental status. COMPARISON STUDY: CT of the brain dated 08/27/2023. TECHNIQUE: MRI of the brain was performed utilizing various T1 and T2-weighted sequences in the axial , sagittal, and coronal planes. IV contrast was not administered for this examination. FINDINGS: Brain parenchyma: There is age-related involutional change noting moderate confluent subcortical and periventricular microangiopathic disease. There is no hemorrhage or mass effect. There is no restrict ed diffusion to suggest acute ischemia. Fu-white matter differentiation is preserved. No extra-axia l fluid collection is seen. The cerebellar tonsils are normal in configuration. Ventricles, sulci, and cisterns: Prominent secondary to involutional change. Pituitary and sella: Unremarkable. Intracranial vasculature: Normal flow voids are maintained at the skull base. Orbits: The bony orbits are grossly intact. Orbital contents are normal in appearance. Sinuses and mastoids: A 1 cm retention cyst is noted in the right maxillary antrum. The remaining par anasal sinuses and mastoid air cells are clear. Calvarium: Unremarkable. Cervical cord: Partially visualized cervical spinal cord is normal in morphology and signal intensity . IMPRESSION: No acute intracranial abnormality. ACT 112: Negative or not required by law. Electronically signed by: David Greer M.D. 08/27/2023 3:06 PM
[2023-08-27] MEDS: hydrALAZINE HCL 20 MG/ML VIAL IV STA (15:19)
--- NOTE | 2023-08-27 15:21 | Gastrointestinal Consultation ---
Date of Consultation August 27, 2023 Assessment & Plan (1) C. difficile colitis: (2) Food impaction of esophagus: Plan food impaction of esophagus since last night it appears, schedule egd now to further evaluate/disimpact cdiff colitis: recurrent, on difficid since 08/24, also with norovirus. He needs colonoscopy to evaluater abnormal ct findings (possible mucosal lesion) once cdiff clears, as an outpatient. History of Present Illness History of Present Illness 82 yo male here with dysphagia. He was eating dinner last night and choked on a piece of chicken, and couldn't keep anything down since then, even water, applesauce. His is giving the history as patient is demented. This has never happened to this extent before. Patient has dementia diagnosed previously at [facility]. He has cdiff and norovirus, started difficid 2 days ago. Also may have a UTI. CBC, CMP reviewed. Allergies Allergy/AdvReac Type Severity Reaction Status Date / Time codeine AdvReac Intermediate GI SYMPTOMS Verified 08/27/23 14:32 Opioids - Morphine Analogues AdvReac Intermediate Vomiting Verified 08/27/23 14:32 Opioids-Meperidine and AdvReac Intermediate Vomiting Verified 08/27/23 14:32 Related Opioids-Methadone and Related AdvReac Intermediate Vomiting Verified 08/27/23 14:32 oxycodone [From Percocet] AdvReac Intermediate n/v Verified 08/27/23 14:32 Anesthesia AdvReac Severe Vomiting Uncoded 08/27/23 14:52 Home Medications Medication Instructions Recorded Confirmed Type folic acid 1 mg tablet 1 mg PO QAM 10/13/22 08/27/23 History acetaminophen 500 mg tablet 500 mg PO TID PRN mild pain 1-4 12/21/22 08/27/23 History aspirin 81 mg capsule 81 mg PO QPM 03/07/23 08/27/23 History tjkkrokdpwxv-siq-ujror acid-vit 1 tab PO DAILY 03/07/23 08/27/23 History K-lycop 400 mcg-20 mcg-370 mcg tablet (Men's 50 Plus Multivitamin) mirabegron 25 mg tablet,extended 25 mg PO QAM #30 tabs 08/21/23 08/27/23 Rx release 24 hr (Myrbetriq) fidaxomicin 200 mg tablet 200 mg PO BID 10 days #20 tabs 08/25/23 08/27/23 Rx cholecalciferol (vitamin D3) 25 25 mcg PO QPM 08/27/23 08/27/23 History mcg (1,000 unit) tablet (Vitamin D3) methenamine hippurate 1 gram tablet 0 g PO BID 08/27/23 08/27/23 History psyllium husk 3.4 gram/5.4 gram 0 tbsp PO DAILY 08/27/23 08/27/23 History oral powder (Metamucil) Patient History Medical History Coronary artery disease involving autologous artery coronary bypass graft Gross hematuria Hypertension History of bicuspid aortic valve Cerebral infarction, unspecified Aneurysm of aortic arch History of TIA (transient ischemic attack) SEPTEMBER 14, 2018 - (USUALLY TIA OCCURS 1X PER YR/STARTED 5 YR AGO)/DR FARRELL History of stroke 2012 - RESIDUAL: STABILITY ISSUE History of anesthesia reaction WITH HERNIA SURGERY ([place]) HAD TROUBLE WAKING UP Lyme disease Seizure X1 OR 2 - WHEN TX FOR STROKE IN 2012/ DR FARRELL Surgical History History of appendectomy (03/16/13) History of colonoscopy History of hernia surgery X2 History of repair of right rotator cuff H/O aortic valve replacement 2013 - AND BICUSPID VALVE REPLACED AT SAME TIME PER PT REPORT /"OPEN HEART" 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 H/O aortic aneurysm repair Family History Mother , age 70 of lung cancer Lung cancer COPD (chronic obstructive pulmonary disease) Father , age 91 of prostate cancer Prostate cancer Coronary heart disease Myocardial infarction Family/Other Breast cancer Cancer Other Heart disease No family history of adverse response to anesthesia No family history of bleeding disorder Social History Smoking Status: Never smoker Second Hand Exposure: No; Do You Dip or Chew Tobacco: No; Hx Alcohol Use: No Hx Substance Use: No Preferred Language: Cymro Communication Ability: Effective Communication Ability Comment: , Roxana Lopez, is POA. Visual Impairment: No Limitations Hearing Ability: Normal Charge Entry Required: No Beliefs That Will Affect Care: None marital status: Current Living Situation: Alone current occupational status: retired Feels Safe at Home: Yes Assistive Devices: CPAP and Walker Review of Systems Constitutional: no fever, no chills and no weight loss Eyes: as per Subjective / HPI Ear, Nose, Mouth, Throat: as per Subjective / HPI Respiratory: no dyspnea and no dyspnea on exertion Cardiovascular: no chest pain and no palpitations Gastrointestinal: as per Subjective / HPI Musculoskeletal: no joint pain and no swelling Integumentary: no rash and no lesions Neurologic: no numbness and no paresthesia Psychiatric: no depression and no anxiety Endocrine: no fatigue Hematologic / Lymphatic: no easy bleeding and no easy bruising Physical Exam Constitutional: WD/WN, vitals as above Eyes: EOM intact bilaterally Neck: normal visual inspection Respiratory: normal respiratory effort, lungs clear to auscultation Cardiovascular: RRR, no murmur, no edema Gastrointestinal (Abdomen): Inspection/Auscultation: abdomen normal to inspection; abdomen not distended Percussion/Palpation: abdomen soft; abdomen nontender and no hepatosplenomegaly Musculoskeletal: Head/Neck/Chest: normocephalic and head atraumatic Extremities: no cyanosis Skin: no rashes, warm and dry Neurologic: moves all extremities Psychiatric: Orientation: alert Apperance: appropriately dressed Speech: no pressured speech Affect: euthymic affect; no anxious affect has dementia Results & Data Vital Signs (Past 12 Hours) Vital Signs Temp Pulse Resp BP Pulse Ox O2 Del Method 08/27/23 13:45 87 22 206/138 H 93 Room Air 08/27/23 13:30 84 25 H 193/118 H 93 Room Air 08/27/23 13:15 82 20 190/127 H 94 Room Air 08/27/23 13:00 91 H 20 189/129 H 93 Room Air 08/27/23 12:45 81 23 187/108 H 93 Room Air 08/27/23 12:30 79 18 178/118 H 95 Room Air 08/27/23 12:15 82 21 181/121 H 92 Room Air 08/27/23 11:30 90 20 159/113 H 92 Room Air 08/27/23 11:15 88 18 168/120 H 94 Room Air 08/27/23 11:14 87 08/27/23 11:00 88 26 H 186/124 H 93 Room Air 08/27/23 10:46 84 18 184/118 H 95 Room Air 08/27/23 10:39 83 08/27/23 10:30 94 Room Air 08/27/23 10:16 36.5 C 85 24 192/121 H 94 Room Air PG Care Time/CCT Total # of Minutes Spent Total Time Spent with Patient: Total time spent is greater than 50% in coordination of care (as documented) at patient's floor/unit and/or counseling patient: Coding Level of Care Code 70372 INT INP/OBS CARE 3/75MIN Diagnoses C. difficile colitis A04.72 Food impaction of esophagus T18.128A; W44.F3XA
[2023-08-27] MEDS ORDERED: MIDAZOLAM HCL 1 MG/ML 2ML VIAL ONE (15:46)
[2023-08-27] MEDS ORDERED: ATROPINE SULFATE 0.1 MG/ML 10ML SYR IV PRN (15:57)
[2023-08-27] MEDS ORDERED: ONDANSETRON INJ 2 MG/ML 2 ML VIAL IV PRN (15:57)
[2023-08-27] MEDS ORDERED: ePHEDrine sulfate 50 MG/ML AMP IV PRN (15:57)
--- NOTE | 2023-08-27 15:57 | Anesthesiology Consultation ---
Date of Service August 27, 2023 Assessment & Plan ASA ASA4E Proposed Anesthesia Anesthesia Type: General Risk / Benefits Reviewed With: PT / POA / Parent / Guardian, Accepts Plan and Informed Consent Obtained Additional Comments: pt high risk for aspiration. Dr waller will place scope with pt awake and suction esophugus then we will convert to rsi with endo tube. pt signed consent. she wishes to proceed despite aspiration risk History Surgery Operation Date: 08/27/23 10:30 Proposed Procedures p Esophagogastroduodenoscopy - Roby Waller MD Operation Date: 08/27/23 17:00 Proposed Procedures p Esophagogastroduodenoscopy Dr. Waller - Roby Waller MD Height/Weight Height: 6 ft Weight: 82.4 kg Allergies Allergy/AdvReac Type Severity Reaction Status Date / Time codeine AdvReac Intermediate GI SYMPTOMS Verified 08/27/23 14:32 Opioids - Morphine Analogues AdvReac Intermediate Vomiting Verified 08/27/23 14:32 Opioids-Meperidine and AdvReac Intermediate Vomiting Verified 08/27/23 14:32 Related Opioids-Methadone and Related AdvReac Intermediate Vomiting Verified 08/27/23 14:32 oxycodone [From Percocet] AdvReac Intermediate n/v Verified 08/27/23 14:32 Anesthesia AdvReac Severe Vomiting Uncoded 08/27/23 14:52 Medications Home Medications Medication Instructions Recorded Confirmed Last Taken folic acid 1 mg tablet 1 mg PO QAM 10/13/22 08/27/23 08/26/23 acetaminophen 500 mg tablet 500 mg PO TID PRN mild pain 1-4 12/21/22 08/27/23 08/26/23 aspirin 81 mg capsule 81 mg PO QPM 03/07/23 08/27/23 08/26/23 wtcmzoeydxna-bry-ksyit acid-vit 1 tab PO DAILY 03/07/23 08/27/23 08/26/23 K-lycop 400 mcg-20 mcg-370 mcg tablet (Men's 50 Plus Multivitamin) mirabegron 25 mg tablet,extended 25 mg PO QAM #30 tabs 08/21/23 08/27/23 08/26/23 release 24 hr (Myrbetriq) fidaxomicin 200 mg tablet 200 mg PO BID 10 days #20 tabs 08/25/23 08/27/2324 cholecalciferol (vitamin D3) 25 25 mcg PO QPM 08/27/23 08/27/23 08/26/23 mcg (1,000 unit) tablet (Vitamin D3) methenamine hippurate 1 gram tablet 0 g PO BID 08/27/23 08/27/23 08/20/23 psyllium husk 3.4 gram/5.4 gram 0 tbsp PO DAILY 08/27/23 08/27/23 08/21/23 oral powder (Metamucil) NPO Date Last Intake of Fluids: 08/26/23 Date Last Intake of Solids: 08/26/23 Past Medical History Medical History Coronary artery disease involving autologous artery coronary bypass graft Gross hematuria Hypertension History of bicuspid aortic valve Cerebral infarction, unspecified Aneurysm of aortic arch History of TIA (transient ischemic attack) SEPTEMBER 14, 2018 - (USUALLY TIA OCCURS 1X PER YR/STARTED 5 YR AGO)/DR FARRELL History of stroke 2012 - RESIDUAL: STABILITY ISSUE History of anesthesia reaction WITH HERNIA SURGERY ([place]) HAD TROUBLE WAKING UP Lyme disease Seizure X1 OR 2 - WHEN TX FOR STROKE IN 2012/ DR FARRELL Exercise / Class Metabolic Activity II 4-5 Yardwork/Stairs/Walk up hill Past Family History Family History Mother , age 70 of lung cancer Lung cancer COPD (chronic obstructive pulmonary disease) Father , age 91 of prostate cancer Prostate cancer Coronary heart disease Myocardial infarction Family/Other Breast cancer Cancer Other Heart disease No family history of adverse response to anesthesia No family history of bleeding disorder Past Surgical History Surgical History History of appendectomy (03/16/13) History of colonoscopy History of hernia surgery X2 History of repair of right rotator cuff H/O aortic valve replacement 2013 - AND BICUSPID VALVE REPLACED AT SAME TIME PER PT REPORT /"OPEN HEART" 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 denies fever/cough/ colds/ chest pain/ SOB/ + FELIX denies FELIX Physical Exam Vital Signs Last Vital Signs Temp 36.5 C 08/27/23 10:16 Pulse 84 08/27/23 14:30 Resp 20 08/27/23 15:17 BP 156/101 H 08/27/23 15:17 Pulse Ox 91 08/27/23 15:17 O2 Del Method Room Air 08/27/23 15:17 Constitutional + altered mental status pt obtunded ENMT Mouth: no TMJ abnormality and no dentition abnormality Thyromental Distance: > or= 3.5 Finger Breadths Mallampati Class: Other (unable to assess) Neck neck extension not limited Respiratory normal respiratory effort; no respiratory distress Auscultation: lungs clear to auscultation bilaterally Cardiovascular Rate/Rhythm: regular rate and regular rhythm Heart Sounds: + murmur Neurologic moves all extremities Psychiatric Orientation: alert and oriented x 3 Testing Laboratory Results 08/27/23 10:30 08/27/23 12:06 PT 11.1 Seconds (9.0-12.0) 08/27/23 12:06 INR 1.0 (0.9-1.1) 08/27/23 12:06 Urine Color Yellow 08/27/23 12:11 Urine Appearance Cloudy (Clear) A 08/27/23 12:11 Urine pH 8.0 (4.5-7.5) H 08/27/23 12:11 Ur Specific [place] 1.029 (1.000-1.030) 08/27/23 12:11 Urine Protein Negative (Negative) 08/27/23 12:11 Urine Glucose (UA) Negative (Negative) 08/27/23 12:11 Urine Ketones Negative (Negative) 08/27/23 12:11 Urine Nitrite Positive (Negative) A 08/27/23 12:11 Ur Leukocyte Esterase 2+ (Negative) H 08/27/23 12:11 Urine WBC (Auto) >30 /hpf (0-5) H 08/27/23 12:11 Urine RBC (Auto) 0-4 /hpf (0-4) 08/27/23 12:11 U Hyaline Cast (Auto) 0 /lpf (0-5) 08/27/23 12:11 U Epithel Cells (Auto) >30 /lpf (0-5) H 08/27/23 12:11 Urine Bacteria (Auto) 2+ (Negative) H 08/27/23 12:11
--- NOTE | 2023-08-27 15:59 | Electrocardiogram Report ---
Test Reason : Blood Pressure : / mmHG Vent. Rate : 084 BPM Atrial Rate : 084 BPM P-R Int : 226 ms QRS Dur : 094 ms QT Int : 370 ms P-R-T Axes : 044 -35 021 degrees QTc Int : 437 ms Sinus rhythm with 1st degree A-V block with Premature supraventricular complexes Left axis deviation Moderate voltage criteria for LVH, may be normal variant Anteroseptal infarct (cited on or before 16-OCT-2020) Abnormal ECG When compared with ECG of 16-DEC-2022 21:44, Premature ventricular complexes are no longer Present Confirmed by Felix Ayala ([id number]) on 08/27/2023 3:58:31 PM Referred By: Confirmed By:Checo Ayala
[2023-08-27] MEDS ORDERED: DEXAMETHASONE SOD INJ 4 MG/ML VIAL ONE (16:17)
--- NOTE | 2023-08-27 16:24 | Infectious Disease Consult ---
Date of Consultation August 27, 2023 Assessment & Plan (1) C. difficile colitis: (2) Norovirus: (3) Food impaction of esophagus: Plan 82yo M with h/o prior C diff infection (diagnosed again 08/24 and now on dificid), prior CVA, dementia, seizure, chronic indwelling martinez, paroxysmal a trial tachycardia, aortic valve replacement/proximal aortic aneurysm repair, left hip replacement in 2022, HTN who presented on 08/26 with increased weakness, vomiting, and AMS. He was eating dinner night prior and choked on a piece of chicken and couldnt keep anything down since then. Here he has been afebrile, hypertensive with BP in 190-200s, on RA. WBC 10.68, Cr 0.74. LFT wnl. UA with > 30 WBC, > 30 epithelial cells (martinez not changed). CTAP with ?focal wall thickening/narrowing of ascending colon, consider eval for mucosal lesion. CTH negative. CXR neg. MRI brain negative. He has received zosyn. GI consulted with c/f food bolus obstruction and he is being taken for EGD today. Unable to see patient today. Regarding his C diff and norovirus infection, continue treatment with fidaxomicin. Per chart review, this is his first recurrence but will confirm that with patient/ when I see him tomorrow. This should be treated with fidaxomicin as he is already getting. Adjunctive bezloto xumab may be considered would need to ensure this is covered by his insurance and available at pharmacy prior to administration. Regarding his ?UTI, it doesnt sound like he had any symptoms (ie urinary symptoms, lower abdominal pain) and urine sample is from a chronic martinez that hasnt been changed (note altered mental status is not an indicator of UTI). Cultures likely represent colonization and would avoid antibiotics, especially in an individual with C diff infection. # Recurrent C diff # Norovirus # Esophageal obstruction from food impaction # h/o chronic indwelling martinez - would favor stopping zosyn - if he has any urinary symptoms, then change martinez catheter and repeat UA/UCx - continue fidaxomicin - please have case management check insurance approval for bezlotoxumab (also ?if we have this in our pharmacy) - I will see patient tomorrow with telepresenter ID will continue to follow. If questions or concerns, contact Infectious Disease Call Center . Anyaa Narvaez MD [facility], Division of Infectious Diseases [facility]: [phone] Consultation Information This patient recommendation is based on a telemedicine consult request which was completed asynchronously through chart review and information provided by the primary physician. The patient was not seen or examined today. The evaluation is consultative in nature and all patient care and treatment decisions can either be accepted or rejected by the patient's primary hospital-based treating physician using their own independent medical judgment for their patient. [employer]ing Machine Operator contact information: Please call [facility] Call Center [phone]. (Phone Number For Physician Use Only) Time Spent Reviewing Chart: 31+ minutes History of Present Illness Reason for Consultation: Recurrent C. difficile, multidrug-resistant Pseudo Attending Physician: Domingo History of Present Illness 82yo M with h/o prior C diff infection, prior CVA, dementia, seizure, chronic indwelling martinez, paroxysmal atrial tachycardia, aortic valve replacement/proximal aortic aneurysm repair, left hip replacement in 2022, HTN who presented on 08/26 with increased weakness, vomiting, and AMS. Per chart, he has not been responsive since this morning. He was seen on 08/24 for abdominal pain and diarrhea and found to have norovirus and positive for C diff. He was sent home on fidaxomicin. He was eating dinner last night and choked on a piece of chicken and couldnt keep anything down since then. Here he has been afebrile, hypertensive with BP in 190-200s, on RA. WBC 10.68, Cr 0.74. LFT wnl. UA with > 30 WBC, > 30 epithelial cells (martinez not changed). CTAP with ?focal wall thickening/narrowing of ascending colon, consider eval for mucosal lesion. CTH negative. CXR neg. MRI brain negative. He has received zosyn. GI consulted with c/f food bolus obstruction and he is being taken for EGD today. Allergies Allergy/AdvReac Type Severity Reaction Status Date / Time codeine AdvReac Intermediate GI SYMPTOMS Verified 08/27/23 14:32 Opioids - Morphine Analogues AdvReac Intermediate Vomiting Verified 08/27/23 14:32 Opioids-Meperidine and AdvReac Intermediate Vomiting Verified 08/27/23 14:32 Related Opioids-Methadone and Related AdvReac Intermediate Vomiting Verified 08/27/23 14:32 oxycodone [From Percocet] AdvReac Intermediate n/v Verified 08/27/23 14:32 Anesthesia AdvReac Severe Vomiting Uncoded 08/27/23 14:52 Home Medications Medication Instructions Recorded Confirmed Type folic acid 1 mg tablet 1 mg PO QAM 10/13/22 08/27/23 History acetaminophen 500 mg tablet 500 mg PO TID PRN mild pain 1-4 12/21/22 08/27/23 History aspirin 81 mg capsule 81 mg PO QPM 03/07/23 08/27/23 History okmxbhopwldh-rge-dihrd acid-vit 1 tab PO DAILY 03/07/23 08/27/23 History K-lycop 400 mcg-20 mcg-370 mcg tablet (Men's 50 Plus Multivitamin) mirabegron 25 mg tablet,extended 25 mg PO QAM #30 tabs 08/21/23 08/27/23 Rx release 24 hr (Myrbetriq) fidaxomicin 200 mg tablet 200 mg PO BID 10 days #20 tabs 08/25/23 08/27/23 Rx cholecalciferol (vitamin D3) 25 25 mcg PO QPM 08/27/23 08/27/23 History mcg (1,000 unit) tablet (Vitamin D3) methenamine hippurate 1 gram tablet 0 g PO BID 08/27/23 08/27/23 History psyllium husk 3.4 gram/5.4 gram 0 tbsp PO DAILY 08/27/23 08/27/23 History oral powder (Metamucil) Patient History Medical History Coronary artery disease involving autologous artery coronary bypass graft Gross hematuria Hypertension History of bicuspid aortic valve Cerebral infarction, unspecified Aneurysm of aortic arch History of TIA (transient ischemic attack) SEPTEMBER 14, 2018 - (USUALLY TIA OCCURS 1X PER YR/STARTED 5 YR AGO)/DR FARRELL History of stroke 2012 - RESIDUAL: STABILITY ISSUE History of anesthesia reaction WITH HERNIA SURGERY ([place]) HAD TROUBLE WAKING UP Lyme disease Seizure X1 OR 2 - WHEN TX FOR STROKE IN 2012/ DR FARRELL Surgical History History of appendectomy (10/08/13) History of colonoscopy History of hernia surgery X2 History of repair of right rotator cuff H/O aortic valve replacement 2014 - AND BICUSPID VALVE REPLACED AT SAME TIME PER PT REPORT /"OPEN HEART" 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 H/O aortic aneurysm repair Family History Mother , age 70 of lung cancer Lung cancer COPD (chronic obstructive pulmonary disease) Father , age 91 of prostate cancer Prostate cancer Coronary heart disease Myocardial infarction Family/Other Breast cancer Cancer Other Heart disease No family history of adverse response to anesthesia No family history of bleeding disorder Social History Smoking Status: Never smoker Second Hand Exposure: No; Do You Dip or Chew Tobacco: No; Hx Alcohol Use: No Hx Substance Use: No Preferred Language: Armenian Communication Ability: Effective Communication Ability Comment: , Roxana Lopez, is POA. Visual Impairment: No Limitations Hearing Ability: Normal Metal Control Coordinator Required: No Beliefs That Will Affect Care: None marital status: Current Living Situation: Alone current occupational status: retired Feels Safe at Home: Yes Assistive Devices: CPAP and Walker Results & Data Vital Signs (Past 12 Hours) Vital Signs Temp Pulse Pulse Resp BP BP Pulse Ox 08/27/23 15:45 36.9 C 78 16 147/82 H 92 08/27/23 15:17 20 156/101 H 91 08/27/23 14:30 84 22 176/107 H 92 08/27/23 14:00 81 25 H 199/108 H 92 08/27/23 13:45 87 22 206/138 H 93 08/27/23 13:30 84 25 H 193/118 H 93 08/27/23 13:15 82 20 190/127 H 94 08/27/23 13:00 91 H 20 189/129 H 93 08/27/23 12:45 81 23 187/108 H 93 08/27/23 12:30 79 18 178/118 H 95 08/27/23 12:15 82 21 181/121 H 92 08/27/23 11:30 90 20 159/113 H 92 08/27/23 11:15 88 18 168/120 H 94 08/27/23 11:14 87 08/27/23 11:00 88 26 H 186/124 H 93 08/27/23 10:46 84 18 184/118 H 95 08/27/23 10:39 83 08/27/23 10:30 94 08/27/23 10:16 36.5 C 85 24 192/121 H 94 O2 Del Method 08/27/23 15:45 Room Air 08/27/23 15:17 Room Air 08/27/23 14:30 Room Air 08/27/23 14:00 Room Air 08/27/23 13:45 Room Air 08/27/23 13:30 Room Air 08/27/23 13:15 Room Air 08/27/23 13:00 Room Air 08/27/23 12:45 Room Air 08/27/23 12:30 Room Air 08/27/23 12:15 Room Air 08/27/23 11:30 Room Air 08/27/23 11:15 Room Air 08/27/23 11:14 08/27/23 11:00 Room Air 08/27/23 10:46 Room Air 08/27/23 10:39 08/27/23 10:30 Room Air 08/27/23 10:16 Room Air Laboratory Results labs reviewed Diagnostic Findings imaging reviewed
--- NOTE | 2023-08-27 16:40 | GI REPORT ---
Patient Name: Keith Lopez Procedure Date: 08/27/2023 2:17 PM Date of : 1940 Admit Type: Emergency Department Age: 82 Gender: Male Attending MD: Roby Zhang MD, Procedure: Upper GI endoscopy Providers: Roby Zhang MD Referring MD: Referred Self Indications: Dysphagia, Foreign body in the esophagus Medicines: Monitored Anesthesia Care Complications: No immediate complications. Estimated blood loss: None. Estimated Blood Loss: Estimated blood loss: none. Procedure: Pre-Anesthesia Assessment: - Prior Anticoagulants: The patient has taken no anticoagulant or antiplatelet agents. - ASA Grade Assessment: III - A patient with severe systemic disease. After obtaining informed consent, the endoscope was passed under direct vision. Throughout the procedure, the patient's blood pressure, pulse, and oxygen saturations were monitored continuously. The Scope was introduced through the mouth, and advanced to the second part of duodenum. The upper GI endoscopy was accomplished without difficulty. The patient tolerated the procedure well. Findings: Diffuse severe mucosal changes characterized by necrosis were found in the distal esophagus spanning 5 cm proximal to the GE junction. Biopsies were taken with a cold forceps for histology. Estimated blood loss: none. Diffuse, white plaques were found in the upper third of the esophagus and in the middle third of the esophagus. Cells for cytology were obtained by brushing. Estimated blood loss: none. Diffuse mild inflammation characterized by erythema was found in the gastric antrum. Biopsies were taken with a cold forceps for Helicobacter pylori testing. Estimated blood loss: none. One non-bleeding superficial duodenal ulcer with no stigmata of bleeding was found in the duodenal bulb. The second portion of the duodenum was normal. Impression: - Necrosis mucosa in the esophagus. Biopsied. - Esophageal plaques were found, consistent with candidiasis. Cells for cytology obtained. - Gastritis. Biopsied. - Non-bleeding duodenal ulcer with no stigmata of bleeding. - Normal second portion of the duodenum. Recommendation: - [facility] patient to [facility] for [facility] care. - Clear liquid diet today. -start protonix 40 mg IV BID while inpatient. - Await pathology results. Roby Zhang MD 08/27/2023 4:40:26 PM This report has been signed electronically. Note Initiated On: 08/27/2023 2:17 PM Number of Addenda: 0 I attest to the content of the Intraoperative Record and orders documented therein, exceptions below {[id number]}
--- NOTE | 2023-08-27 16:42 | Procedure Note ---
Procedure Note Date of Service August 27, 2023 Note GI post op note/post procedure note EGD findings: severe esophagitis characrerized by necrosis in distal esophagus, bx'd. no food bolus noted. gastritis, bx'd. candidiasis brushed. duodenal ulcer noted. recs: protonix 40 mg IV BID f/u path supportive care clear liquid diet Roby Zhang MD Gastroenterology Coding
[2023-08-27] MEDS: LACTATED RINGER'S 1,000 ML IV SCH (17:34)
[2023-08-27] MEDS: FIDAXOMICIN 200 MG TAB PO ONE (17:35)
--- NOTE | 2023-08-27 17:51 | Anesthesiology Progress Note ---
Date of Service August 27, 2023 Anesthesia Post Procedure Vital Signs Vital Signs: Temp Pulse Pulse Pulse Resp BP BP 08/27/23 17:43 36.5 C 66 14 137/87 08/27/23 17:41 36.5 C 66 14 137/87 08/27/23 17:20 36.4 C L 73 13 127/73 08/27/23 17:05 36.3 C L 70 15 104/60 08/27/23 16:55 66 15 100/64 08/27/23 16:45 72 19 97/61 L 08/27/23 16:35 36.2 C L 75 13 110/68 08/27/23 15:45 36.9 C 78 16 147/82 H 08/27/23 15:17 20 156/101 H 08/27/23 14:30 84 22 176/107 H 08/27/23 14:00 81 25 H 199/108 H 08/27/23 13:45 87 22 206/138 H 08/27/23 13:30 84 25 H 193/118 H 08/27/23 13:15 82 20 190/127 H 08/27/23 13:00 91 H 20 189/129 H 08/27/23 12:45 81 23 187/108 H 08/27/23 12:30 79 18 178/118 H 08/27/23 12:15 82 21 181/121 H 08/27/23 11:30 90 20 159/113 H 08/27/23 11:15 88 18 168/120 H 08/27/23 11:14 87 08/27/23 11:00 88 26 H 186/124 H 08/27/23 10:46 84 18 184/118 H 08/27/23 10:39 83 08/27/23 10:30 08/27/23 10:16 36.5 C 85 24 192/121 H Pulse Ox O2 Del Method O2 Flow Rate 08/27/23 17:43 96 Oxymask 2 08/27/23 17:41 97 Oxymask 2 08/27/23 17:20 96 Oxymask 2 08/27/23 17:05 95 Oxymask 3 08/27/23 16:55 95 Oxymask 3 08/27/23 16:45 94 Oxymask 6 08/27/23 16:35 93 Oxymask 6 08/27/23 15:45 92 Room Air 08/27/23 15:17 91 Room Air 08/27/23 14:30 92 Room Air 08/27/23 14:00 92 Room Air 08/27/23 13:45 93 Room Air 08/27/23 13:30 93 Room Air 08/27/23 13:15 94 Room Air 08/27/23 13:00 93 Room Air 08/27/23 12:45 93 Room Air 08/27/23 12:30 95 Room Air 08/27/23 12:15 92 Room Air 08/27/23 11:30 92 Room Air 08/27/23 11:15 94 Room Air 08/27/23 11:14 08/27/23 11:00 93 Room Air 08/27/23 10:46 95 Room Air 08/27/23 10:39 08/27/23 10:30 94 Room Air 08/27/23 10:16 94 Room Air Transfer of Care Handoff Completed per policy Notes Mental Status: alert / awake / arousable and participated in evaluation Patient Amnestic to Procedure: Yes Nausea / Vomiting: adequately controlled Pain: adequately controlled Airway Patency, RR, SpO2: stable & adequate BP & HR: stable & adequate Hydration State: stable & adequate Anesthetic Complications: no major complications apparent and Pt Satisfied with anesthetic care
[2023-08-27] MEDS: PANTOprazole 40 MG in SYRINGE 0 ML IV ONE (18:15)
[2023-08-27] MEDS: FAMOTIDINE 20MG IV PUSH 20 MG/5 ML SYR IV STA (18:38)
[2023-08-27] MEDS: FIDAXOMICIN 200 MG TAB PO SCH (20:28)
[2023-08-27] MEDS: PIPERACILLIN/TAZOBACTAM 4.5 GM in DEXTROSE 5% MINI-B 100 ML IV SCH (20:35)
[2023-08-27] MEDS: FAMOTIDINE 20MG IV PUSH 20 MG/5 ML SYR IV SCH (20:37)
[2023-08-27] MEDS: PANTOprazole 40 MG in SYRINGE 0 ML IV SCH (20:37)
[2023-08-28] MEDS: VIBEGRON 75 MG TAB PO SCH (07:23)
[2023-08-28] MEDS: FOLIC ACID 1 MG TAB PO SCH (07:24)
[2023-08-28 07:45] LABS: Basophils # (auto) 0.04 K/uL (0.00-0.20); Basophils % (auto) 0.3 %; Eosinophils # (auto) 0.01 K/uL (0.00-0.50); Eosinophils % (auto) 0.1 %; Hematocrit (blood only) 45.3 % (42.0-52.0); Hemoglobin 15.6 g/dl (14.0-18.0); Immature Granulocytes # (auto) 0.07 K/uL (0.01-0.20); Immature Granulocytes % (auto) 0.6 %; Lymphocytes # (auto) 1.35 K/uL (1.20-3.40); Lymphocytes % (auto) 11.3 %; Mean Corpuscular Hemoglobin 31.2 pg (25.0-34.0); Mean Corpuscular Hgb Conc 34.4 g/dL (32.0-36.0); Mean Corpuscular Volume 90.6 fL (80.0-100.0); Mean Platelet Volume 9.6 fL (9.4-12.4); Monocytes # (auto) 1.21 K/uL (0.11-0.59); Monocytes % (auto) 10.1 %; Neutrophils # (auto) 9.32 K/uL (1.40-6.50); Neutrophils % (auto) 77.6 %; Platelet Count 192 K/uL (130-400); RDW Coefficient of Variation 13.3 % (11.5-14.5); RDW Standard Deviation 44.2 fL (36.4-46.3)
[2023-08-28 08:10] LABS: Albumin Globulin Ratio 1.2 (0.9-2); Bilirubin,Total 1.2 mg/dl (0.2-1.0); Calcium 9.5 mg/dl (8.6-10.3); Creatinine Clr Calc Pharmacy 67.9 ml/min; Est GFR (African American) 89.5 ml/min; Est GFR (Non-African American) 77.2 ml/min; Globulin 3.3 gm/dl (2.5-4.0); Potassium 3.8 mmol/L (3.5-5.1); Total Protein 7.3 gm/dl (6.0-8.3)
[2023-08-28 08:26] LABS: Prothrombin Time 10.9 Seconds (9.0-12.0)
[2023-08-28] MEDS: SUCRALFATE 1 GM/10 ML UDC PO SCH (10:12)
--- NOTE | 2023-08-28 11:00 | Communication Note ---
Date of Service: August 28, 2023 Family at bedside today. I spoke with the patient's daughter and . they are questioning if diet can be advanced. discussed with DR. Reardon and we can start soft diet. Diarrhea seems improved. On dificid for c diff. we discussed repeat EGD in 4 weeks to assess healing. also recommended colonoscopy to evaluate narrowing wall thickening of ascending colon. family were agreeable. will have our office coordinate. continue protonix 40mg IV BID. would transition to oral BID on discharge.
--- NOTE | 2023-08-28 11:31 | Infectious Disease Progress Nt ---
Date of Service August 28, 2023 Assessment & Plan (1) C. difficile colitis: (2) Norovirus: (3) Esophageal candidiasis: Plan 82yo M with h/o prior C diff infection (diagnosed again 08/24 and now on dificid), prior CVA, dementia, seizure, chronic indwelling martinez, paroxysmal atrial tachycardia, aortic valve replacement/proximal aortic aneurysm repair, left hip replacement in 2022, HTN who presented on 08/26 with increased weakness, vomiting, and AMS. He was eating dinner night prior and choked on a piece of chicken and couldnt keep anything down since then. Here he has been afebrile, hypertensive with BP in 190-200s, on RA. WBC 10.68, Cr 0.74. LFT wnl. UA with > 30 WBC, > 30 epithelial cells (martinez not changed). CTAP with ?focal wall thickening/narrowing of ascending colon, consider eval for mucosal lesion. CTH negative. CXR neg. MRI brain negative. He has received zosyn. GI consulted with c/f food bolus obstruction. S/p EGD 08/26 which showed necrosis mucosa in the esophagus, esophageal plaques c/w candidiasis, gastritis, duodenal ulcer. Regarding C diff, unclear if his diarrhea is from norovirus alone with C diff detection or from both C diff and norovirus. At this time, treating with fidaxomicin. Case management to see if bezlotoxumab is approved by insurance for adjunctive therapy. EGD with findings of esophageal candidiasis, fluconazole loading dose followed by daily dose ordered. F/u biopsy/brushing results. For c/f UTI, he doesnt have any symptoms. Pyuria and bacteriuria is likely to be seen in an elderly patient. Will hold on systemic abx for now, especially as he is being treated for C diff. # Recurrent C diff # Norovirus # Esophageal Candidiasis on EGD # h/o chronic indwelling martinez - fluconazole started 400mg loading dose followed by 200mg daily x 14 days - zosyn has been stopped - continue fidaxomicin x 10 days - please have case management check insurance approval for bezlotoxumab (also ?if we have this in our pharmacy). If unaffordable, then we can hold on using this therapy - f/u EGD biopsy results Anaya Narvaez MD [facility], Division of Infectious Diseases [employer]: [phone] Admission and Anticipated Discharge Date Admission Date: August 27, 2023 Subjective Subsequent visit was provided via telemedicine using two-way real-time interactive telecommunication between the patient and the telemedicine provider. For the duration of the visit, the provider was performing the assessment from a different facility than the patient. This includesuse of bluetooth stethoscope forauscultationperformed by the telepresenter that the telemedicine provider can hear if described in the physical exam. Call Taker contact information: Please call [facility] Call Center . (Phone Number For Physician Use Only) After establishing a telemedicine visit, patient was: Patient was verified with two unique identifiers, Patient/authorized rep acknowledged consent and understanding and Gave permission to continue telehealth session Time Spent with Patient: Subsequent => 55 min Patient seen with daughter at bedside. She says that she didn't feel patient was more confused while at home. He had his first episode of C diff in July 2023, was treated with PO vancomcyin. Was having formed stools but with mucous and then developed "less formed stools" with blood in the past few days and was then seen in ED where he was given dificid. He notes pain across his abdomen "once a week". Primary reason for coming to the ER this time was for inability to clear his throat. No urinary discomfort. No fevers at home. Physical Exam Physical Exam: General: Awake, alert, no acute distress HEENT: NC/AT, EOMI, mmm, no oral thrush Neck: supple Lungs: respirations non-labored Heart: nl peripheral perfusion Abdomen: soft, NT/ND Ext: no LE edema Results & Data Vital Signs (Past 12 Hours) Vital Signs Temp Pulse Pulse Resp BP Pulse Ox O2 Del Method 08/28/23 08:17 36.6 C 87 19 166/76 H 91 Room Air 08/28/23 07:53 73 08/28/23 07:37 Room Air 08/28/23 03:24 36.5 C 75 18 155/94 H 97 Oxymask O2 Flow Rate 08/28/23 08:17 08/28/23 07:53 08/28/23 07:37 08/28/23 03:24 2
[2023-08-28 11:50] LABS: Magnesium 1.8 mg/dl (1.7-2.4)
[2023-08-28] MEDS: FLUCONAZOLE 100 MG/50 ML BAG IV SCH (11:52)
[2023-08-28] MEDS ORDERED: OLANZapine 10 MG/2.1 ML SDV IM PRN (12:39)
[2023-08-28] MEDS: OLANZapine 10 MG/2.1 ML SDV IM STA (12:47)
[2023-08-28] MEDS: FLUCONAZOLE 100 MG TAB PO ONE (12:49)
[2023-08-28] MEDS: NYSTATIN SUSP 500,000 U/5 ML UDC PO SCH (12:49)
--- NOTE | 2023-08-28 12:49 | Hospitalist Progress Note ---
Date of Service August 28, 2023 Assessment & Plan (1) Esophageal obstruction: Plan: No food impaction seen on EGD. Appreciate GI consultation and recommendations. He does have esophagitis and white patches that could be Natacha esophagitis. He is now on PPI therapy along with Carafate suspension and treatment for suspected Natacha with intravenous Diflucan and nystatin swish and swallow. (2) Esophageal candidiasis: Plan: Suspected. Await final culture results. Now on parenteral Diflucan and nystatin swish and swallow (3) C. difficile colitis: Plan: Continue Dificid therapy (4) Chronic indwelling Gamboa catheter: Plan: Urine will never be sterile with chronic indwelling Gamboa catheter. Doubt active cystitis. Zosyn has been discontinued. Case discussed with infectious disease (5) Dementia with agitation: Plan: Supportive care. Zyprexa IM as needed Plan Hopeful discharge to home or previous living arrangement tomorrow, August 28 Admission and Anticipated Discharge Date Admission Date: August 27, 2023 Subjective The patient is awake but demented at baseline and exhibiting agitation at times. IM Zyprexa ordered as needed. There is some question of Natacha esophagitis and he has been placed on intravenous Diflucan while hospitalized along with nystatin swish and swallow. Will eventually discharged on oral Diflucan. Carafate suspension has also been added and IV fluids tapered down. Diet advance from clear liquids to full liquids and will be advanced as tolerated. EGD was completed yesterday, August 26, and fortunately there was no obstruction from food impaction but he did have evidence of esophagitis and gastritis and white patches that could be Natacha. I discussed the case with infectious disease today. Zosyn will be discontinued since he has C. difficile colitis and with chronic Gamboa catheter he will never have sterile urine and there is doubtful acute cystitis. Review of Systems 2 Review of Systems: The patient is unable to reliably answer any questions regarding review of systems due to severe dementia Physical Exam 2 Physical Exam: General-alert but confused due to baseline dementia, no fever, no chills HEENT-head atraumatic and normocephalic, pupils equal and reactive to light, extraocular muscles intact Neck-no lymphadenopathy or thyromegaly, trachea midline Chest-clear to auscultation. No rales, wheezing or rhonchi Cardiac-regular rate and rhythm, normal S1 and S2 Abdomen-normal bowel sounds, nontender, no hepatosplenomegaly Extremities-no cyanosis, clubbing, or edema Neuro-cranial nerves II through XII intact, motor and sensory function within normal limits, strength symmetrical, no focal deficits Psych-baseline dementia. Results & Data Results & Data Vital Signs (Past 12 Hours) Vital Signs Temp Pulse Pulse Resp BP Pulse Ox O2 Del Method 08/28/23 11:35 36.5 C 71 18 145/81 H 93 Room Air 08/28/23 08:17 36.6 C 87 19 166/76 H 91 Room Air 08/28/23 07:53 73 08/28/23 07:37 Room Air 08/28/23 03:24 36.5 C 75 18 155/94 H 97 Oxymask O2 Flow Rate 08/28/23 11:35 08/28/23 08:17 08/28/23 07:53 08/28/23 07:37 08/28/23 03:24 2 Laboratory Results 08/28/23 07:10 08/28/23 07:10 PG Care Time/CCT Total # of Minutes Spent Total Time Spent with Patient: Total time spent is greater than 50% in coordination of care (as documented) at patient's floor/unit and/or counseling patient: Coding Level of Care Code 11687 SUB INP/OBS CARE 3/50MIN Diagnoses Esophageal obstruction K22.2 Esophageal candidiasis B37.81 C. difficile colitis A04.72 Chronic indwelling Gamboa catheter Z97.8 Dementia with agitation F03.911
[2023-08-28] MEDS: ASPIRIN 81 MG ECTAB PO SCH (22:59)
[2023-08-29 04:49] LABS: Eosinophils # (auto) 0.35 K/uL (0.00-0.50); Eosinophils % (auto) 3.5 %; Hematocrit (blood only) 45.2 % (42.0-52.0); Hemoglobin 15.5 g/dl (14.0-18.0); Immature Granulocytes # (auto) 0.04 K/uL (0.01-0.20); Immature Granulocytes % (auto) 0.4 %; Lymphocytes # (auto) 2.47 K/uL (1.20-3.40); Lymphocytes % (auto) 24.6 %; Mean Corpuscular Hemoglobin 30.8 pg (25.0-34.0); Mean Corpuscular Hgb Conc 34.3 g/dL (32.0-36.0); Mean Corpuscular Volume 89.9 fL (80.0-100.0); Mean Platelet Volume 9.7 fL (9.4-12.4); Monocytes # (auto) 1.41 K/uL (0.11-0.59); Neutrophils # (auto) 5.68 K/uL (1.40-6.50); Neutrophils % (auto) 56.5 %; Platelet Count 189 K/uL (130-400); RDW Coefficient of Variation 13.3 % (11.5-14.5); RDW Standard Deviation 43.9 fL (36.4-46.3); Red Blood Count 5.03 M/uL (4.70-6.10); White Blood Count 10.05 K/ul (4.8-10.8)
[2023-08-29 05:04] LABS: Calcium 9.5 mg/dl (8.6-10.3); Creatinine Clr Calc Pharmacy 75.3 ml/min; Est GFR (Non-African American) 81.9 ml/min; Potassium 3.7 mmol/L (3.5-5.1)
[2023-08-29] MEDS: FLUCONAZOLE 100 MG TAB PO SCH (07:57)
--- NOTE | 2023-08-29 10:01 | Infectious Disease Progress Nt ---
Date of Service August 29, 2023 Assessment & Plan (1) C. difficile colitis: (2) Norovirus: (3) Esophageal candidiasis: Plan 82yo M with h/o prior C diff infection (initial diagnosis Jul 2023, s/p PO vanc, diagnosed again 08/24 and now on dificid), prior CVA, dementia, seizure, chronic indwelling martinez, paroxysmal atrial tachycardia, aortic valve replacement/proximal aortic aneurysm repair, left hip replacement in 2022, HTN who presented on 08/26 with increased weakness, vomiting, and AMS. He was eating dinner night prior and choked on a piece of chicken and couldnt keep anything down since then. Here was afebrile, hypertensive with BP in 190-200s, on RA. WBC 10.68, Cr 0.74. LFT wnl. UA with > 30 WBC, > 30 epithelial cells (martinez not changed). CTAP with ?focal wall thickening/narrowing of ascending colon, consider eval for mucosal lesion. CTH negative. CXR neg. MRI brain negative. He has received zosyn. GI consulted with c/f food bolus obstruction. S/p EGD 08/26 which showed necrosis mucosa in the esophagus, esophageal plaques c/w candidiasis, gastritis, duodenal ulcer. No BMs noted today, last BM on 08/27. Remains afebrile, WBC wnl. Regarding C diff, unclear if his diarrhea is from norovirus alone with C diff detection or from both C diff and norovirus. At this time, treating with fidaxomicin. EGD with findings of esophageal candidiasis, fluconazole loading dose followed by daily dose ordered. F/u biopsy/brushing results. For c/f UTI, he doesnt have any symptoms. Pyuria and bacteriuria is likely to be seen in an elderly patient, especially in chronic martinez. Will hold on systemic abx for now, especially as he is being treated for C diff. 08/24 UCx with PsA 08/26 UCx: more than 3 types of organisms, all high counts 08/26 BCX: ngtd # Recurrent C diff # Norovirus # Esophageal Candidiasis on EGD # h/o chronic indwelling martinez - f/u pathology report from EGD done 08/26 - continue fluconazole 200mg daily x 14 days for esophageal candidiasis noted on EGD (started 08/27) - continue fidaxomicin x 10 days ID will discontinue active follow up at this time. Please do not hesitate to reconsult the Infectious Diseases service as needed. Anaya Narvaez MD [facility], Division of Infectious Diseases [employer]Connect: [phone] Admission and Anticipated Discharge Date Admission Date: August 27, 2023 Subjective This patient recommendation is based on a telemedicine consult request which was completed asynchronously through chart review and information provided by the primary physician. The patient was not seen or examined today. The evaluation is consultative in nature and all patient care and treatment decisions can either be accepted or rejected by the patient's primary hospital-based treating physician using their own independent medical judgment for their patient. Time Spent Reviewing Chart: 31+ minutes Results & Data Vital Signs (Past 12 Hours) Vital Signs Temp Pulse Pulse Resp BP BP Pulse Ox 08/29/23 09:00 80 08/29/23 08:05 36.4 C L 77 19 157/97 H 90 08/29/23 03:09 36.3 C L 76 18 166/98 H 93 08/28/23 23:48 69 08/28/23 23:05 36.5 C 76 18 156/82 H 92 O2 Del Method 08/29/23 09:00 08/29/23 08:05 Room Air 08/29/23 03:09 Room Air 08/28/23 23:48 08/28/23 23:05 Room Air
--- NOTE | 2023-08-29 12:10 | Discharge Summary ---
Date of Service August 29, 2023 Admission HPI Per Admitting Provider Please see above. Principal Diagnosis Esophagitis with possible Natacha esophagitis, acute gastritis Discharge Exam General-alert but confused due to baseline dementia, no fever, no chills HEENT-head atraumatic and normocephalic, pupils equal and reactive to light, extraocular muscles intact Neck-no lymphadenopathy or thyromegaly, trachea midline Chest-clear to auscultation. No rales, wheezing or rhonchi Cardiac-regular rate and rhythm, normal S1 and S2 Abdomen-normal bowel sounds, nontender, no hepatosplenomegaly Extremities-no cyanosis, clubbing, or edema Neuro-cranial nerves II through XII intact, motor and sensory function within normal limits, strength symmetrical, no focal deficits Psych-baseline dementia. Discharge Data Allergies Allergy/AdvReac Type Severity Reaction Status Date / Time codeine AdvReac Intermediate GI SYMPTOMS Verified 08/27/23 14:32 Opioids - Morphine Analogues AdvReac Intermediate Vomiting Verified 08/27/23 14:32 Opioids-Meperidine and AdvReac Intermediate Vomiting Verified 08/27/23 14:32 Related Opioids-Methadone and Related AdvReac Intermediate Vomiting Verified 08/27/23 14:32 oxycodone [From Percocet] AdvReac Intermediate n/v Verified 08/27/23 14:32 Anesthesia AdvReac Severe Vomiting Uncoded 08/27/23 14:52 Consultations 08/27/23 14:13 ED Decision to Admit Stat 08/27/23 14:36 Consult Gastroenterology Routine 08/27/23 14:37 Consult Infectious Diseases Routine Procedures Performed Operation Date: 08/27/23 17:00 <No data on this case meets the specified criteria> Ordered Studies 08/27/23 10:29 CT abd pelvis IV con only Stat CT head/brain wo con Stat 08/27/23 14:13 MRI Brain [MR brain wo con] Stat Hospital Course (1) Esophageal obstruction: No food impaction seen on EGD. Appreciate GI consultation and recommendations. He does have esophagitis and white patches that could be Natacha esophagitis. He is now on PPI therapy along with Carafate suspension which will continue at discharge. He was also treated for suspected esophageal Natacha with intravenous Diflucan and nystatin swish and swallow. Oral Diflucan will continue for 1 week at discharge (2) Esophageal candidiasis: Suspected. Continue Diflucan for 1 week at discharge. Treated while hospitalized with parenteral Diflucan and nystatin swish and swallow (3) C. difficile colitis: Continue Dificid therapy (4) Chronic indwelling Gamboa catheter: Urine will never be sterile with chronic indwelling Gamboa catheter. Doubt active cystitis. Zosyn has been discontinued. Case discussed with infectious disease (5) Dementia with agitation: Supportive care. Zyprexa IM as needed Plan Home todayAugust 28 Total Time Total Time Spent Total Time Spent (In Minutes): 45 minutes Discharge Plan Discharge Items Patient Disposition: Home - Home Health Services Reason For Visit: UTI, C.DIFF, NAUSEA/VOMITING, AMS Discharge Diagnosis: Esophagitis with possible Natacha, gastritis, esophageal obstruction without food bolus Activity: Resume your previous activity Non-emergency contact: Primary Care Provider Call non-emergency contact if: you have any medication questions and your symptoms worsen Follow-up/Referrals: Keith Smith MD [Primary Care Provider] - Diet: Regular Diet Comment: Easy to chew Addtl Attending Provider Instructions: Dissolve Carafate tablets in a small amount of water to make a suspension which should be taken before meals and at bedtime on an empty stomach. Continue Diflucan tablet for 1 week. All other medications remain the same Pending Studies at Discharge: No Stand-Alone Forms: My [facility] [employer], Smoking Cessation Medications and DC Order Prescriptions: New fluconazole [Diflucan] 100 mg Tablet 100 mg PO QAM Qty: 7 0RF sucralfate 1 gram tablet 1 g PO ACHS Qty: 60 0RF Continued Myrbetriq 25 mg tablet extended release 24 hr 25 mg PO QAM Qty: 30 3RF Men's 50 Plus Multivitamin 400-20-370 mcg tablet 1 tab PO DAILY aspirin 81 mg capsule 81 mg PO QPM acetaminophen 500 mg Tablet 500 mg PO TID MDD 4G PRN (Reason: mild pain 1-4) Rx Instructions: am,1400 & hs folic acid 1 mg tablet 1 mg PO QAM fidaxomicin 200 mg tablet 200 mg PO BID 10 Days Qty: 20 0RF Rx Instructions: Start Date 08/24/23 - End Date 09/03/23: Pt has 1 dose on 08/24/23 and 2 doses on 08/25/23 and 1 dose on 08/26/23. cholecalciferol (vitamin D3) [Vitamin D3] 25 mcg (1,000 unit) Tablet 25 mcg PO QPM methenamine hippurate 1 gram tablet 0 g PO BID Rx Instructions: Currently on hold as pt is taking Dificid Metamucil 3.4 gram/5.4 gram powder 0 tbsp PO DAILY Rx Instructions: Currently on hold as pt is taking Dificid Discharge Orders: Discharge Order (Routine); Ordered 08/29/23 Ordered By: Jt Rawls Admission Data Admit Date/Time: 08/27/23 14:24 Attending Provider: Jt Rawls Admit Provider: Vladislav Lane Primary Care Provider: Keith Smith Other Providers: Vladislav Lane; Roby Zhang; Cordelia Duque; Giulia Masterson; Ginger Marx; Charlee Spain; Anaya Narvaez; Nabor Goldberg; Claudia Saucedo; [place] Noriega Coding Level of Care Code 67160 INP/OBS DISCH >30 MIN Diagnoses Esophageal obstruction K22.2 Esophageal candidiasis B37.81 C. difficile colitis A04.72 Chronic indwelling Gamboa catheter Z97.8 Dementia with agitation F03.911
== END 2023-08-29 15:15 | disposition home health service (06) | DRG 368 ==
LOC: ED 10:16 → 4W 14:24 → SUATTDRO 14:24 → 4W 15:39

== ENCOUNTER 2024-09-12 12:04 | Inpatient (IN) ==
--- OUTSIDE RECORDS SUMMARY | 2024-09-12 12:10 | External Medical Summary ---
Author Name Unknown Address Unknown Organization K01:[facility] [place] [address] [place] [id number] Laboratory Report Ordering Provider Test Date Status LISA GOVEA 08/30/2024 07:56:45 Final Deficient: <20 ng/mL
Ins ufficient: 20-29 ng/mL
Recommended/Optimum:30-50 ng/mL

Vitamin D intoxication is rare. If suspicious of Vitamin D toxicity, evaluation of serum Calcium and PTH is recommended. Observation Date Value Abnormality Reference (Units ) Status 25-OH Vitamin D total 08/30/2024 07:56:45 43 >19 (ng/mL) Final Performing Location [facility] [place] [address] [place] [id number]
--- OUTSIDE RECORDS SUMMARY | 2024-09-12 12:10 | External Medical Summary | Summary of Care ---
Author Name Unknown Organization [facility] Address [address] [place] [address] Phone [phone] Care Team Providers Care Early Childhood Aide Classroom Name Role Phone Keith Smith MD Primary Care Provider [phone] Encounter Details Date Type Department Care Team (Late st Contact Info) Description 08/30/2024 Orders Only Lab Mobile Phlebotomy [address] [address] Opal Odell CRNP [address] [place] [address] Senile dementia, uncomplicated (HCC)* Allergies Active Allergy Reactions Criticality Noted Date Comments Meperidine Nausea/vomiting Low 10/21/2022 Methadone Nausea/vomiting Low 10/21/2022 Morphine And Codeine Nausea/vomiting Low 10/21/2022 Oxycodone Nausea/vomiting Low 10/21/2022 documented as of this encounter (statuses as of 08/30/2024) Medications THERAPEUTIC-M PO TABS one tablet once a day Active Acetaminophen 500 MG Oral Tablet (Tylenol Extra Strength) Take 2 Tablets by mouth 3 times a day. Active Jayla-Rul Vitamin D 50 MCG (1999 UT) Oral Tablet (Cholecalciferol) Take 1 Tablet by mouth in the morning. Active Folic Acid 1 MG Oral Tablet Take 1 Tablet by mouth in the morning. Active Metamucil [facility] Fiber 58.12 % Oral Packet (Psyllium) Take 1 Packet by mouth in the morning. Active Sennosides-Docusate Sodium 8.6-50 MG Oral Tablet (Senna S) Take 2 Tablets by mouth at bedtime. Active Apixaban 2.5 MG Oral Tablet (Eliquis)Indications :S/P hip hemiarthroplasty Take 1 Tablet by mouth in the morning and 1 Tablet before bedtime. Take this medication until 11/25/22 then STOP. 20 Tablet 11/06/19 Active Ferrous Sulfate 325 (65 Fe) MG Oral Tablet (Feosol)Indications: Acute blood loss anemia Take 1 Tablet by mouth 2 times a day with morning and evening meals. 60 Tablet 11/06/19 Active Myrbetriq 25 MG Oral Tablet Extended Release 24 Hour (Mirabegron ER)Indications:BPH with obstruction/lower urinary tract symptoms,Chronic indwelling Gamboa catheter Take 1 Tablet by mouth in the morning. 30 Tablet 11/06/19 Active documented as of this encounter (statuses as of 08/30/2024) Active Problems Problem Noted Date Diagnosed Date S/P hip hemiarthroplasty 10/24/2022 Closed fracture of neck of left femur 10/24/2022 Moderate late onset Alzheimer's dementia 023 Hypertension goal BP (blood pressure) < 140/90 0 10/24/2022 BPH with obstruction/lower urinary tract symptom s 10/24/2022 Chronic indwelling Gamboa catheter 10/24/2022 Slow transit constipation 10/24/2022 Cerebrovascular disease, arteriosclerotic, post- stroke 10/24/2022 S/P aortic valve replacement 10/24/2022 Hx of repair of aortic root 10/24/2022 Monoallelic mutation of BRCA2 gene 05/06/2017 Overview (05/06/2017): Pathogenic BRCA2 gene variant ([id number], p.[id number]) detected via Gient. Increased risk for prostate, pancreatic and male breast cancer. Breast cancer genetic susceptibility 11/17/2009 Family hx-breast malignancy 10/10/2009 Unilateral inguinal hernia 06/05/2008 NONALLERGIC RHINITIS 05/13/2007 Chronic sinusitis 05/13/2007 Hypertrophy of nasal turbinates 05/13/2007 Deviated nasal septum 05/13/2007 Headache Overview (08/30/2015): chronic frontal headaches and pressure ICD-10 update of inactive term Temporomandibular joint disorders, unspecified documented as of this encounter (statuses as of 08/30/2024) Resolved Problems Problem Noted Date Diagnosed Date Resolved Date [employer] Other*[id number] 07/12/2013 07/16/2016 Overview (07/12/2013): Study Title: Genomic Markers for Patients with Cardiovascular Disease Project # [id number] Supervisor [employer]: Divya Ch MD [phone] ADVANCE DIRECTIVE INFORMATION 06/19/2007 04/12/2024 Overview (06/19/2007): No, Advance Directive brochure offered , patient declined. Deviated nasal septum 2008 Overview (07/07/2008): Resolved per Duplicate Protocol #2. documented as of this encounter (statuses as of 08/30/2024) Social History Tobacco Use Types Packs/Day Years Used Date Smoking Tobacco: Never Smokeless Tobacco: Never Comments:no passive smoke ex posures Alcohol Use Standard Drinks/Week Comments Not Currently 0 (1 standard drink = 0.6 oz pur e alcohol) 2-3 drinks a week Utilities Answer Date Recorded Do you have trouble paying y our heating, water, or electric bill? (Adult - for ages 18 years and over) Not on file 11/25/2023 Is your family able to pay t he heat, water, or electric bill? (Household - for ages 0-17 years) Not on file 11/25/2023 Does your family have access to good internet? (Household - for ages 0-17 years) Not on file 11/25/2023 Social Connections Answer Date Recorded How often do you feel lonely or isolated from those around you? (Adult - for ages 18 years and over) Not on file 11/25/2023 Sex and Gender Information Value Date Recorded Sex Assigned at Not on file Legal Sex Male 5:25 AM EST Gender Identity Not on file Sexual Orientation Not on file documented as of this encounter Plan of Treatment Upcoming Encounters Date Type Department Care Team (Late st Contact Info) Description 11/02/2024 11:00 AM EDT Office Visit Cardiology, [facility] [address] [place] [phone] Rommel Mcdonough DO [address] [place] [address] Pending Results Name Type Priority Associated Diagnoses Date /Time BASIC METABOLIC PANEL Lab Routine Senile dementia, uncomplicated (HCC) 08/30/2024 7:56 AM EDT 25-HYDROXY VITAMIN D Lab Routine Senile dementia, uncomplicated (HCC) 08/30/2024 7:56 AM EDT CBC Lab Routine Senile dementia, uncomplicated (HCC) 08/30/2024 7:56 AM EDT Scheduled Orders Name Type Priority Associated Diagnoses Orde r Schedule BASIC METABOLIC PANEL Lab Routine Senile dementia, uncomplicated (HCC) Expected: 08/30/2024, Expires: 08/30/2025 25-HYDROXY VITAMIN D Lab Routine Senile dementia, uncomplicated (HCC) Expected: 08/30/2024, Expires: 08/30/2025 CBC Lab Routine Senile dementia, uncomplicated (HCC) Expected: 08/30/2024, Expires: 08/30/2025 Health Maintenance Due Date Last Done Comments Depression Screening 1952 Albumin/Creatinine Ratio 1958 DTap/Tdap Vaccines (1 - Tdap) 09/28/1959 SHERLYN Prostate Cancer Screen BRCA1/BRCA2 Annual,Ages 45 & Up 1985 PSA Screen Positive BRCA1/BRCA2 Annual,Ages 45 & Up 1985 Zoster Vaccines (1 of 2) 1990 Pneumococcal Vaccine: 50+ Years (2 of 2 - PCV) 03/17/2014 03/17/2013 COVID-19 Vaccine ( season) 2024 02/18/2022, 10/05/2021, 03/06/2021, Additional history exists Influenza Vaccine (FLU shot) (#1) 2024 02/18/2022, 03/11/2013 GFR 08/10/2025 08/10/2024, 06/10, 06/04/2024, Additional history exists HPV (Gardasil) Vaccine Aged Out No lo nger eligible based on patient's age to complete this topic Hepatitis B Vaccine Aged Out No longe r eligible based on patient's age to complete this topic MENINGOCOCCAL (MENACTRA/MENVEO) Aged Out No longer eligible based on patient's age to complete this topic Meningitis B Vaccine (Bexsero/Trumemba) Aged Out No longer eligible based on patient's age to complete this topic documented as of this encounter Medical Devices Implanted Type Area [employer] Pathology Associate Professor Device Identifier Shelf Expiration Date Model / Serial / Lot Mesh Max 3d L Med [id number] - [id number] Implanted:Qty: 1 on 06/21/2008 at OR [facility] Left: Groin CR BARD : MARVIN 02/07/2013 [id number] / / [id number] documented as of this encounter Visit Diagnoses Diagnosis Senile dementia, uncomplicated (HCC)- Primary Senile dementia, uncomplicated documented in this encounter Advance Directives Documents on File Type Date Recorded 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
--- OUTSIDE RECORDS SUMMARY | 2024-09-12 12:10 | External Medical Summary ---
Author Name Unknown Address Unknown Organization [id number] [address] [place] [id number] Laboratory Report Ordering Provider Test Date Status LISA GOVEA 08/30/2024 07:56:45 Final Observation Date Value Abnormality Reference (Units ) Status WBC, Total 08/30/2024 07:56:45 9.70 4.00-10.8 0 (K/uL) Final RBC 08/30/2024 07:56:45 4.40 4.50-5.25 (M/uL) Final Hemoglobin 08/30/2024 07:56:45 13.8 Below low normal 14 .0-16.8 (g/dL) Final HCT 08/30/2024 07:56:45 41.4 40.0-48.4 (%) Final MCV 08/30/2024 07:56:45 94.1 82.0-99.5 (fL) Final MCH 08/30/2024 07:56:45 31.4 27.0-34.0 (pg) Final MCHC 08/30/2024 07:56:45 33.3 32.0-36.0 (g/dL) Final RDW 08/30/2024 07:56:45 13.8 11.5-15.5 (%) Final Platelets 08/30/2024 07:56:45 225 140-400 (K /uL) Final MPV 08/30/2024 07:56:45 9.9 6.6-11.1 ( fL) Final Performing Location LABORATORY [facility] [address] [place] [id number]
--- OUTSIDE RECORDS SUMMARY | 2024-09-12 12:10 | External Medical Summary ---
Author Name Unknown Address Unknown Organization [id number] [address] [place] [id number] Laboratory Report Ordering Provider Test Date Status LISA GOVEA 08/30/2024 07:56:45 Final Observation Date Value Abnormality Reference (Units ) Status BUN 08/30/2024 07:56:45 15 6-20 (mg/dL) Final Creatinine 08/30/2024 07:56:45 0.8 0.6-1.2 (mg/dL) Final Glomerular filtration rate/1.73 sq M.predicted [Volume Rate/Area] in Serum, Plasma or Blood by Creatinine-based formula (CKD-EPI) 08/30/2024 07:56:45 88 >=60 (mL/min) Final eGFR is calculated based on the CKD-EPI 2020 equation. Sodium 08/30/2024 07:56:45 138 135-146 (m mol/L) Final Potassium 08/30/2024 07:56:45 3.5 3.5-5.1 (m mol/L) Final Cl 08/30/2024 07:56:45 100 98-107 (mm ol/L) Final CO2 08/30/2024 07:56:45 24 22-32 (mmo l/L) Final Anion gap 08/30/2024 07:56:45 14 7-15 (mmol /L) Final Glucose 08/30/2024 07:56:45 105 70-120 (mg /dL) Final Calcium 08/30/2024 07:56:45 9.2 8.4-10.2 ( mg/dL) Final Performing Location [facility]ORY [facility] [address] [place] [id number]
--- OUTSIDE RECORDS SUMMARY | 2024-09-12 12:10 | External Medical Summary ---
Author Name Unknown Address Unknown Organization [facility] [address] [place] [id number] Laboratory Report Ordering Provider Test Date Status LISA GOVEA 08/10/2024 06:18:00 Final Observation Date Value Abnormality Reference (Units ) Status BUN 08/10/2024 06:18:00 15 6-20 (mg/dL) Final Creatinine 08/10/2024 06:18:00 0.7 0.6-1.2 (mg/dL) Final Glomerular filtration rate/1.73 sq M.predicted [Volume Rate/Area] in Serum, Plasma or Blood by Creatinine-based formula (CKD-EPI) 08/10/2024 06:18:00 90 >=60 (mL/min) Final eGFR is calculated based on the CKD-EPI 2020 equation. Sodium 08/10/2024 06:18:00 140 135-146 (m mol/L) Final Potassium 08/10/2024 06:18:00 3.7 3.5-5.1 (m mol/L) Final Cl 08/10/2024 06:18:00 106 98-107 (mm ol/L) Final CO2 08/10/2024 06:18:00 27 22-32 (mmo l/L) Final Anion gap 08/10/2024 06:18:00 7 7-15 (mmol /L) Final Glucose 08/10/2024 06:18:00 92 70-120 (mg /dL) Final Calcium 08/10/2024 06:18:00 8.8 8.4-10.2 ( mg/dL) Final Performing Location [facility]ORY [facility] [address] [place] [id number]
[2024-09-12 12:57] LABS: Basophils # (auto) 0.05 K/uL (0.00-0.20); Basophils % (auto) 0.4 %; Eosinophils # (auto) 0.16 K/uL (0.00-0.50); Eosinophils % (auto) 1.4 %; Hematocrit (blood only) 37.6 % (42.0-52.0); Hemoglobin 12.2 g/dl (14.0-18.0); Immature Granulocytes # (auto) 0.07 K/uL (0.01-0.20); Immature Granulocytes % (auto) 0.6 %; Lymphocytes # (auto) 1.33 K/uL (1.20-3.40); Lymphocytes % (auto) 11.3 %; Mean Corpuscular Hemoglobin 30.1 pg (25.0-34.0); Mean Corpuscular Hgb Conc 32.4 g/dL (32.0-36.0); Mean Corpuscular Volume 92.8 fL (80.0-100.0); Monocytes # (auto) 0.87 K/uL (0.11-0.59); Monocytes % (auto) 7.4 %; Neutrophils # (auto) 9.31 K/uL (1.40-6.50); Neutrophils % (auto) 78.9 %; Platelet Count 236 K/uL (130-400); RDW Coefficient of Variation 13.3 % (11.5-14.5); RDW Standard Deviation 45.5 fL (36.4-46.3); Red Blood Count 4.05 M/uL (4.70-6.10); White Blood Count 11.79 K/ul (4.8-10.8)
[2024-09-12 13:12] LABS: Alanine Aminotransferase 28 U/L (7-52); Albumin Globulin Ratio 0.9 (0.9-2); Albumin Level 3.2 gm/dl (3.4-5.0); Alkaline Phosphatase 137 U/L (34-104); Anion Gap 4 (3-11); Aspartate Aminotransferase 31 U/L (13-39); BUN Creatinine Ratio 26.6 (10-20); Bilirubin,Total 0.7 mg/dl (0.2-1.0); Blood Urea Nitrogen 21 mg/dl (6-23); Carbon Dioxide 32 mmol/L (21-32); Chloride 103 mmol/L (98-107); Globulin 3.7 gm/dl (2.5-4.0); Glucose 107 mg/dl (70-99(Fasting)); Potassium 3.8 mmol/L (3.5-5.1); Sodium 139 mmol/L (136-145); Total Protein 6.9 gm/dl (6.0-8.3)
[2024-09-12] MEDS: ACETAMINOPHEN 1,000 MG/100 ML VIAL IV STA (13:26)
--- NOTE | 2024-09-12 14:34 | Emergency Department Note ---
Impression & Plan Back pain, Leukocytosis, Acute UTI (urinary tract infection) ED Provider Note NAME: BRODERICK LOPEZ AGE: 83 SEX: Male INFORMANT: Family ED PROVIDER(S): Broderick Bauman MD CHIEF COMPLAINT: Back pain PLAN: Disposition: Admitted Outpatient prescription management: none Referral: None MEDICAL DECISION MAKING: Patient presented because of possible back pain. On examination he seemed to be tender in the lumbar region. His dementia makes historical questioning difficult. He did not have a fever. Blood work obtained and revealed a slight leukocytosis. The patient has an abnormal urinalysis. Chronic Gamboa catheter stent does cloud the picture. Culture review reveals that he has had MRSA as well as Proteus and a quinolone resistant Pseudomonas. CT imaging of the abdomen pelvis as well as lumbar spine raise questions for possible fracture versus inflammatory process. Discussed with the patient's . I did discuss the possibilities here that could require pain management versus antibiotic therapy. Did discuss surgery options and she notes that he is not good with anesthesia and prefers conservative management in light of his advanced dementia. I think this is reasonable as we need MR imaging to further elucidate the findings on CT. I did discuss the patient's presentation and findings with Lesley who was covering for Dr. Claire. MR imaging was felt to be appropriate and treatment based upon findings recommended. I did order the MRI imaging. physical science technician noted that the patient has had possible limiting surger done at the [facility] last year. Based upon the protocol they need the operative report. Kelly is attempting to get these records at this time. I did consult with internal medicine, for admission and further management. Case discussed and diagnostics were reviewed. Patient was evaluated in the ER and admitted for further management. Care/management discussed with: On-call spine, case management, ED pharmacist, internal medicine Level of care consideration(s): After review of the information above and other included data, I feel the patient requires escalation of care to admission. Triage Nursing notes: reviewed and agree them. Vital Signs: reviewed and remarkable for no significant abnormalities Additional History obtained from: Family Chronic Medical/Social Conditions affecting care: Dementia Prior/ Outside/ External records reviewed: none Differential Diagnosis: Musculoskeletal, disc herniation, fracture, metastatic disease, cord compression, discitis, sciatica, cauda equina, infection, aortic disease, renal colic, gastrointestinal, as well as other pathologies. Diagnostics, independently interpreted by me: ECG: none Cardiac Monitoring: Cardiac monitoring ordered by me: The patient was placed on continuous cardiac monitoring and observed. It revealed a normal sinus rhythm at 81 beats per minute without ectopy or evidence of dysrhythmia. Medical decision rules: none Imaging studies: CT imaging as noted below. I refer you to the EMR for further details. HPI: 83 year old Male arrives for evaluation of back pain. Patient has a history of significant dementia. Family is present and helps with history. They note that he resides at [facility]. He has had several days of grimacing and discomfort with transferring. They suspect he had some pain in the lower back on the right side. There was no reported falls. Patient does have a history of UTI. He has an indwelling Gamboa catheter for the last 2 years. This was just changed at the end of this week. No fever reported. History is limited secondary to the patient's advanced dementia. PAST MEDICAL HISTORY: See Below, dementia, urinary retention, BPH PAST SURGICAL HISTORY: See Below, SOCIAL HISTORY: See Below, retired HOME MEDICATIONS: See Below ALLERGIES: See Below VITALS: See Below PHYSICAL EXAMINATION: GENERAL: Awake, nontoxic-appearing, in no distress HENT: Normocephalic, atraumatic. Oropharynx unremarkable. EYES: Normal conjunctiva. Sclera non-icteric. NECK: Inspection normal. Non-tender. Supple. No nuchal rigidity. FROM. No masses. RESPIRATORY: Clear to auscultation. No wheezes. No rales. Normal respiratory effort. CARDIAC: Normal rate. Normal rhythm. No murmurs. No rubs. Extremities warm and well perfused. Pulses equal. No JVD. GI: Soft, non-distended. No tenderness to palpation. No rebound or guarding. No masses. RECTAL: Deferred. MUSCULOSKELETAL: Atraumatic. Chest examination reveals no tenderness. The back is symmetrical on inspection without obvious abnormality. There is no CVA tenderness to palpation. Mild right low lumbar tenderness to palpation no joint edema. LOWER EXTREMITIES: Calves are equal size bilaterally and non-tender. Trace edema. No discoloration. Patient has good range of motion of both hip joints. There are some minimal discomfort in the right pelvis area posteriorly on palpation but not with hip motion. NEURO: Demented sensorium. No sensory or motor deficits noted. SKIN: No rash or jaundice noted. No shingles. PROCEDURES: none CRITICAL CARE: none OBSERVATION NOTE: none Past Med/Surg History Problem List (Updated 09/12/24 @ 19:05 by Broderick Bauman MD) Acute UTI (urinary tract infection) (Acute) Leukocytosis (Acute) Back pain (Acute) Hematuria Urinary retention Recurrent Clostridioides difficile diarrhea Abnormal CT scan, colon Aneurysm of aortic arch Depression with anxiety (Chronic) Obstructive sleep apnea (Chronic) Polyneuropathy (Chronic) Renal cyst, acquired (Acute) Seizure disorder (Chronic) Sensorineural hearing loss (SNHL) of both ears (Acute) Dyslipidemia BPH (benign prostatic hyperplasia) PAC (premature atrial contraction) Facet arthritis, degenerative, L5-S1 level, lumbosacral spine Hyponatremia Bicuspid aortic valve Vitamin D deficiency Dementia (Acute) Ambulatory dysfunction (Acute) Anemia Hypertension Medical History Esophageal candidiasis Fracture of femoral neck, left, closed Bladder stones Low back pain BPPV (benign paroxysmal positional vertigo) Family history of prostate cancer 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 difficile colitis Coronary artery disease involving autologous artery coronary bypass graft Gross hematuria History of bicuspid aortic valve History of TIA (transient ischemic attack) SEPTEMBER 14, 2018 - (USUALLY TIA OCCURS 1X PER YR/STARTED 5 YR AGO)/DR FARRELL History of stroke 2012 - RESIDUAL: STABILITY ISSUE History of anesthesia reaction WITH HERNIA SURGERY (SHELBY) HAD TROUBLE WAKING UP Lyme disease Seizure X1 OR 2 - WHEN TX FOR STROKE IN 2012/ DR FARRELL Surgical History S/P hip hemiarthroplasty History of aortic valve replacement History of appendectomy (03/16/13) History of colonoscopy History of hernia surgery X2 History of repair of right rotator cuff H/O aortic valve replacement 2013 - AND BICUSPID VALVE REPLACED AT SAME TIME PER PT REPORT /"OPEN HEART" 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 H/O aortic aneurysm repair Family History Mother , age 70 of lung cancer Lung cancer COPD (chronic obstructive pulmonary disease) Father , age 91 of prostate cancer Prostate cancer Coronary heart disease Myocardial infarction Family/Other Breast cancer Cancer Other Heart disease No family history of adverse response to anesthesia No family history of bleeding disorder Social History Smoking Status: Never smoker Second Hand Exposure: No; Do You Dip or Chew Tobacco: No; Hx Alcohol Use: No Hx Substance Use: No Preferred Language: Welsh Communication Ability: Impaired Communication Ability Comment: , Roxana Lopez, is POA. 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 Beliefs That Will Affect Care: None marital status: Current Living Situation: Alone current occupational status: retired Feels Safe at Home: Yes Assistive Devices: Walker and Wheelchair Allergies Allergies Allergy/AdvReac Type Severity Reaction Status Date / Time codeine AdvReac Intermediate GI SYMPTOMS Verified 07/20/24 09:42 Opioids - Morphine Analogues AdvReac Intermediate Vomiting Verified 07/20/24 09:42 Opioids-Meperidine and AdvReac Intermediate Vomiting Verified 07/20/24 09:42 Related Opioids-Methadone and Related AdvReac Intermediate Vomiting Verified 07/20/24 09:42 oxycodone [From Percocet] AdvReac Intermediate n/v Verified 07/20/24 09:42 Anesthesia AdvReac Severe Vomiting Uncoded 07/20/24 09:42 Home Meds Home Medications Medication Instructions Recorded Confirmed aspirin 81 mg capsule 81 mg PO DAILY 03/07/23 09/12/24 cholecalciferol (vitamin D3) 25 25 mcg PO DAILY 08/27/23 09/12/24 mcg (1,000 unit) tablet (Vitamin D3) cranberry 500 mg capsule 500 mg PO QPM 12/05/23 09/12/24 acetaminophen 500 mg tablet 1,000 mg PO Q6 PRN pain/fever 05/10/24 09/12/24 >101.4 losartan 25 mg tablet 25 mg PO QPM 09/12/24 09/12/24 mirabegron 25 mg tablet,extended 25 mg PO DAILY 09/12/24 09/12/24 release 24 hr (Myrbetriq) Previous Rx's Medication Instructions Recorded pantoprazole 40 mg tablet,delayed 40 mg PO DAILY #90 tabs 10/23/23 release (Protonix) folic acid 1 mg tablet 1 mg PO QAM 30 days #30 tabs 07/28/24 Results & Data (ED) Vital Signs Vital Signs - 24 hr 09/12/24 12:11 09/12/24 12:31 09/12/24 13:29 Temperature 36.4 C L Temperature Source Temporal Artery Scan Pulse Rate 96 H 88 Pulse Rate [Right Finger] 84 Pulse Rate from SpO2 Sensor Respiratory Rate 20 20 Respiratory Effort / Characteristics Non-Labored Spontaneous Respiratory Depth Normal Respiratory Pattern Regular Blood Pressure 106/75 Blood Pressure [Right Arm] 108/74 Blood Pressure Mean 85 Blood Pressure Mean [Right Arm] 85 Pulse Oximetry 96 Oxygen Delivery Method Room Air Room Air Sepsis Recent Fever Within 48 Hours No Sepsis New/Unexplained Change in Mental Status No Sepsis Action Taken by Nursing No Action Required 09/12/24 13:29 09/12/24 13:29 09/12/24 13:51 Temperature Temperature Source Pulse Rate 85 Pulse Rate [Right Finger] Pulse Rate from SpO2 Sensor 74 Respiratory Rate 20 Respiratory Effort / Characteristics Respiratory Depth Respiratory Pattern Blood Pressure 108/74 108/74 Blood Pressure [Right Arm] Blood Pressure Mean 86 86 Blood Pressure Mean [Right Arm] Pulse Oximetry 98 Oxygen Delivery Method Sepsis Recent Fever Within 48 Hours Sepsis New/Unexplained Change in Mental Status Sepsis Action Taken by Nursing 09/12/24 14:09 09/12/24 14:21 09/12/24 14:30 Temperature Temperature Source Pulse Rate 85 85 Pulse Rate [Right Finger] Pulse Rate from SpO2 Sensor 88 Respiratory Rate 26 H 23 Respiratory Effort / Characteristics Respiratory Depth Respiratory Pattern Blood Pressure 109/77 Blood Pressure [Right Arm] Blood Pressure Mean 87 Blood Pressure Mean [Right Arm] Pulse Oximetry 98 Oxygen Delivery Method Sepsis Recent Fever Within 48 Hours Sepsis New/Unexplained Change in Mental Status Sepsis Action Taken by Nursing 09/12/24 14:30 09/12/24 14:30 09/12/24 14:30 Temperature Temperature Source Pulse Rate Pulse Rate [Right Finger] Pulse Rate from SpO2 Sensor Respiratory Rate Respiratory Effort / Characteristics Respiratory Depth Respiratory Pattern Blood Pressure 109/77 109/77 109/77 Blood Pressure [Right Arm] Blood Pressure Mean 87 87 87 Blood Pressure Mean [Right Arm] Pulse Oximetry Oxygen Delivery Method Sepsis Recent Fever Within 48 Hours Sepsis New/Unexplained Change in Mental Status Sepsis Action Taken by Nursing 09/12/24 14:30 09/12/24 14:30 09/12/24 14:30 Temperature Temperature Source Pulse Rate Pulse Rate [Right Finger] Pulse Rate from SpO2 Sensor Respiratory Rate Respiratory Effort / Characteristics Respiratory Depth Respiratory Pattern Blood Pressure 109/77 109/77 109/77 Blood Pressure [Right Arm] Blood Pressure Mean 87 87 87 Blood Pressure Mean [Right Arm] Pulse Oximetry Oxygen Delivery Method Sepsis Recent Fever Within 48 Hours Sepsis New/Unexplained Change in Mental Status Sepsis Action Taken by Nursing 09/12/24 14:30 09/12/24 14:44 09/12/24 15:00 Temperature Temperature Source Pulse Rate 80 Pulse Rate [Right Finger] Pulse Rate from SpO2 Sensor Respiratory Rate 23 Respiratory Effort / Characteristics Respiratory Depth Respiratory Pattern Blood Pressure 109/77 130/55 L Blood Pressure [Right Arm] Blood Pressure Mean 87 62 Blood Pressure Mean [Right Arm] Pulse Oximetry Oxygen Delivery Method Sepsis Recent Fever Within 48 Hours Sepsis New/Unexplained Change in Mental Status Sepsis Action Taken by Nursing 09/12/24 15:00 09/12/24 15:00 09/12/24 15:00 Temperature Temperature Source Pulse Rate Pulse Rate [Right Finger] Pulse Rate from SpO2 Sensor Respiratory Rate Respiratory Effort / Characteristics Respiratory Depth Respiratory Pattern Blood Pressure 130/55 L 130/55 L 130/55 L Blood Pressure [Right Arm] Blood Pressure Mean 62 62 62 Blood Pressure Mean [Right Arm] Pulse Oximetry Oxygen Delivery Method Sepsis Recent Fever Within 48 Hours Sepsis New/Unexplained Change in Mental Status Sepsis Action Taken by Nursing 09/12/24 15:00 09/12/24 15:00 09/12/24 15:00 Temperature Temperature Source Pulse Rate Pulse Rate [Right Finger] Pulse Rate from SpO2 Sensor Respiratory Rate Respiratory Effort / Characteristics Respiratory Depth Respiratory Pattern Blood Pressure 130/55 L 130/55 L 130/55 L Blood Pressure [Right Arm] Blood Pressure Mean 62 62 62 Blood Pressure Mean [Right Arm] Pulse Oximetry Oxygen Delivery Method Sepsis Recent Fever Within 48 Hours Sepsis New/Unexplained Change in Mental Status Sepsis Action Taken by Nursing 09/12/24 15:00 09/12/24 15:00 09/12/24 15:00 Temperature Temperature Source Pulse Rate Pulse Rate [Right Finger] Pulse Rate from SpO2 Sensor Respiratory Rate Respiratory Effort / Characteristics Respiratory Depth Respiratory Pattern Blood Pressure 130/55 L 130/55 L 130/55 L Blood Pressure [Right Arm] Blood Pressure Mean 62 62 62 Blood Pressure Mean [Right Arm] Pulse Oximetry Oxygen Delivery Method Sepsis Recent Fever Within 48 Hours Sepsis New/Unexplained Change in Mental Status Sepsis Action Taken by Nursing 09/12/24 15:00 09/12/24 15:00 09/12/24 15:00 Temperature Temperature Source Pulse Rate Pulse Rate [Right Finger] Pulse Rate from SpO2 Sensor Respiratory Rate Respiratory Effort / Characteristics Respiratory Depth Respiratory Pattern Blood Pressure 130/55 L 130/55 L 130/55 L Blood Pressure [Right Arm] Blood Pressure Mean 62 62 62 Blood Pressure Mean [Right Arm] Pulse Oximetry Oxygen Delivery Method Sepsis Recent Fever Within 48 Hours Sepsis New/Unexplained Change in Mental Status Sepsis Action Taken by Nursing 09/12/24 15:00 09/12/24 15:11 09/12/24 15:29 Temperature Temperature Source Pulse Rate 86 82 Pulse Rate [Right Finger] Pulse Rate from SpO2 Sensor Respiratory Rate 22 23 Respiratory Effort / Characteristics Respiratory Depth Respiratory Pattern Blood Pressure 130/55 L Blood Pressure [Right Arm] Blood Pressure Mean 62 Blood Pressure Mean [Right Arm] Pulse Oximetry Oxygen Delivery Method Sepsis Recent Fever Within 48 Hours Sepsis New/Unexplained Change in Mental Status Sepsis Action Taken by Nursing 09/12/24 15:30 09/12/24 15:30 09/12/24 15:30 Temperature Temperature Source Pulse Rate Pulse Rate [Right Finger] Pulse Rate from SpO2 Sensor Respiratory Rate Respiratory Effort / Characteristics Respiratory Depth Respiratory Pattern Blood Pressure 101/62 101/62 101/62 Blood Pressure [Right Arm] Blood Pressure Mean 79 79 79 Blood Pressure Mean [Right Arm] Pulse Oximetry Oxygen Delivery Method Sepsis Recent Fever Within 48 Hours Sepsis New/Unexplained Change in Mental Status Sepsis Action Taken by Nursing 09/12/24 15:30 09/12/24 15:30 09/12/24 15:30 Temperature Temperature Source Pulse Rate Pulse Rate [Right Finger] Pulse Rate from SpO2 Sensor Respiratory Rate Respiratory Effort / Characteristics Respiratory Depth Respiratory Pattern Blood Pressure 101/62 101/62 101/62 Blood Pressure [Right Arm] Blood Pressure Mean 79 79 79 Blood Pressure Mean [Right Arm] Pulse Oximetry Oxygen Delivery Method Sepsis Recent Fever Within 48 Hours Sepsis New/Unexplained Change in Mental Status Sepsis Action Taken by Nursing 09/12/24 15:30 09/12/24 15:30 09/12/24 15:30 Temperature Temperature Source Pulse Rate Pulse Rate [Right Finger] Pulse Rate from SpO2 Sensor Respiratory Rate Respiratory Effort / Characteristics Respiratory Depth Respiratory Pattern Blood Pressure 101/62 101/62 101/62 Blood Pressure [Right Arm] Blood Pressure Mean 79 79 79 Blood Pressure Mean [Right Arm] Pulse Oximetry Oxygen Delivery Method Sepsis Recent Fever Within 48 Hours Sepsis New/Unexplained Change in Mental Status Sepsis Action Taken by Nursing 09/12/24 15:30 09/12/24 15:32 09/12/24 15:50 Temperature Temperature Source Pulse Rate 83 83 Pulse Rate [Right Finger] Pulse Rate from SpO2 Sensor Respiratory Rate 23 18 Respiratory Effort / Characteristics Respiratory Depth Respiratory Pattern Blood Pressure 101/62 Blood Pressure [Right Arm] Blood Pressure Mean 79 Blood Pressure Mean [Right Arm] Pulse Oximetry Oxygen Delivery Method Sepsis Recent Fever Within 48 Hours Sepsis New/Unexplained Change in Mental Status Sepsis Action Taken by Nursing 09/12/24 16:00 09/12/24 16:00 09/12/24 16:00 Temperature Temperature Source Pulse Rate Pulse Rate [Right Finger] Pulse Rate from SpO2 Sensor Respiratory Rate Respiratory Effort / Characteristics Respiratory Depth Respiratory Pattern Blood Pressure 130/91 130/91 130/91 Blood Pressure [Right Arm] Blood Pressure Mean 100 100 100 Blood Pressure Mean [Right Arm] Pulse Oximetry Oxygen Delivery Method Sepsis Recent Fever Within 48 Hours Sepsis New/Unexplained Change in Mental Status Sepsis Action Taken by Nursing 09/12/24 16:00 09/12/24 16:00 09/12/24 16:00 Temperature Temperature Source Pulse Rate Pulse Rate [Right Finger] Pulse Rate from SpO2 Sensor Respiratory Rate Respiratory Effort / Characteristics Respiratory Depth Respiratory Pattern Blood Pressure 130/91 130/91 130/91 Blood Pressure [Right Arm] Blood Pressure Mean 100 100 100 Blood Pressure Mean [Right Arm] Pulse Oximetry Oxygen Delivery Method Sepsis Recent Fever Within 48 Hours Sepsis New/Unexplained Change in Mental Status Sepsis Action Taken by Nursing 09/12/24 16:00 09/12/24 16:02 09/12/24 16:29 Temperature Temperature Source Pulse Rate 82 79 Pulse Rate [Right Finger] Pulse Rate from SpO2 Sensor Respiratory Rate 18 20 Respiratory Effort / Characteristics Respiratory Depth Respiratory Pattern Blood Pressure 130/91 Blood Pressure [Right Arm] Blood Pressure Mean 100 Blood Pressure Mean [Right Arm] Pulse Oximetry Oxygen Delivery Method Sepsis Recent Fever Within 48 Hours Sepsis New/Unexplained Change in Mental Status Sepsis Action Taken by Nursing 09/12/24 16:30 09/12/24 16:30 09/12/24 16:30 Temperature Temperature Source Pulse Rate Pulse Rate [Right Finger] Pulse Rate from SpO2 Sensor Respiratory Rate Respiratory Effort / Characteristics Respiratory Depth Respiratory Pattern Blood Pressure 133/90 133/90 133/90 Blood Pressure [Right Arm] Blood Pressure Mean 98 98 98 Blood Pressure Mean [Right Arm] Pulse Oximetry Oxygen Delivery Method Sepsis Recent Fever Within 48 Hours Sepsis New/Unexplained Change in Mental Status Sepsis Action Taken by Nursing 09/12/24 16:30 09/12/24 16:30 09/12/24 16:30 Temperature Temperature Source Pulse Rate Pulse Rate [Right Finger] Pulse Rate from SpO2 Sensor Respiratory Rate Respiratory Effort / Characteristics Respiratory Depth Respiratory Pattern Blood Pressure 133/90 133/90 133/90 Blood Pressure [Right Arm] Blood Pressure Mean 98 98 98 Blood Pressure Mean [Right Arm] Pulse Oximetry Oxygen Delivery Method Sepsis Recent Fever Within 48 Hours Sepsis New/Unexplained Change in Mental Status Sepsis Action Taken by Nursing 09/12/24 17:00 09/12/24 17:00 09/12/24 17:00 Temperature Temperature Source Pulse Rate Pulse Rate [Right Finger] Pulse Rate from SpO2 Sensor Respiratory Rate Respiratory Effort / Characteristics Respiratory Depth Respiratory Pattern Blood Pressure 145/89 H 145/89 H 145/89 H Blood Pressure [Right Arm] Blood Pressure Mean 118 118 118 Blood Pressure Mean [Right Arm] Pulse Oximetry Oxygen Delivery Method Sepsis Recent Fever Within 48 Hours Sepsis New/Unexplained Change in Mental Status Sepsis Action Taken by Nursing 09/12/24 17:00 09/12/24 17:00 09/12/24 17:00 Temperature Temperature Source Pulse Rate Pulse Rate [Right Finger] Pulse Rate from SpO2 Sensor Respiratory Rate Respiratory Effort / Characteristics Respiratory Depth Respiratory Pattern Blood Pressure 145/89 H 145/89 H 145/89 H Blood Pressure [Right Arm] Blood Pressure Mean 118 118 118 Blood Pressure Mean [Right Arm] Pulse Oximetry Oxygen Delivery Method Sepsis Recent Fever Within 48 Hours Sepsis New/Unexplained Change in Mental Status Sepsis Action Taken by Nursing 09/12/24 17:00 09/12/24 17:00 09/12/24 17:00 Temperature Temperature Source Pulse Rate Pulse Rate [Right Finger] Pulse Rate from SpO2 Sensor Respiratory Rate Respiratory Effort / Characteristics Respiratory Depth Respiratory Pattern Blood Pressure 145/89 H 145/89 H 145/89 H Blood Pressure [Right Arm] Blood Pressure Mean 118 118 118 Blood Pressure Mean [Right Arm] Pulse Oximetry Oxygen Delivery Method Sepsis Recent Fever Within 48 Hours Sepsis New/Unexplained Change in Mental Status Sepsis Action Taken by Nursing 09/12/24 17:00 09/12/24 17:00 09/12/24 17:00 Temperature Temperature Source Pulse Rate Pulse Rate [Right Finger] Pulse Rate from SpO2 Sensor Respiratory Rate Respiratory Effort / Characteristics Respiratory Depth Respiratory Pattern Blood Pressure 145/89 H 145/89 H 145/89 H Blood Pressure [Right Arm] Blood Pressure Mean 118 118 118 Blood Pressure Mean [Right Arm] Pulse Oximetry Oxygen Delivery Method Sepsis Recent Fever Within 48 Hours Sepsis New/Unexplained Change in Mental Status Sepsis Action Taken by Nursing 09/12/24 17:00 09/12/24 17:00 09/12/24 17:00 Temperature Temperature Source Pulse Rate Pulse Rate [Right Finger] Pulse Rate from SpO2 Sensor Respiratory Rate Respiratory Effort / Characteristics Respiratory Depth Respiratory Pattern Blood Pressure 145/89 H 145/89 H 145/89 H Blood Pressure [Right Arm] Blood Pressure Mean 118 118 118 Blood Pressure Mean [Right Arm] Pulse Oximetry Oxygen Delivery Method Sepsis Recent Fever Within 48 Hours Sepsis New/Unexplained Change in Mental Status Sepsis Action Taken by Nursing 09/12/24 17:18 09/12/24 17:30 09/12/24 17:30 Temperature Temperature Source Pulse Rate 85 87 Pulse Rate [Right Finger] Pulse Rate from SpO2 Sensor Respiratory Rate 23 21 Respiratory Effort / Characteristics Respiratory Depth Respiratory Pattern Blood Pressure 154/108 H Blood Pressure [Right Arm] Blood Pressure Mean 119 Blood Pressure Mean [Right Arm] Pulse Oximetry Oxygen Delivery Method Sepsis Recent Fever Within 48 Hours Sepsis New/Unexplained Change in Mental Status Sepsis Action Taken by Nursing 09/12/24 17:30 09/12/24 17:30 09/12/24 17:30 Temperature Temperature Source Pulse Rate Pulse Rate [Right Finger] Pulse Rate from SpO2 Sensor Respiratory Rate Respiratory Effort / Characteristics Respiratory Depth Respiratory Pattern Blood Pressure 154/108 H 154/108 H 154/108 H Blood Pressure [Right Arm] Blood Pressure Mean 119 119 119 Blood Pressure Mean [Right Arm] Pulse Oximetry Oxygen Delivery Method Sepsis Recent Fever Within 48 Hours Sepsis New/Unexplained Change in Mental Status Sepsis Action Taken by Nursing 09/12/24 17:30 09/12/24 17:30 09/12/24 17:30 Temperature Temperature Source Pulse Rate Pulse Rate [Right Finger] Pulse Rate from SpO2 Sensor Respiratory Rate Respiratory Effort / Characteristics Respiratory Depth Respiratory Pattern Blood Pressure 154/108 H 154/108 H 154/108 H Blood Pressure [Right Arm] Blood Pressure Mean 119 119 119 Blood Pressure Mean [Right Arm] Pulse Oximetry Oxygen Delivery Method Sepsis Recent Fever Within 48 Hours Sepsis New/Unexplained Change in Mental Status Sepsis Action Taken by Nursing 09/12/24 17:41 09/12/24 18:00 09/12/24 18:00 Temperature Temperature Source Pulse Rate 86 85 Pulse Rate [Right Finger] Pulse Rate from SpO2 Sensor Respiratory Rate 21 Respiratory Effort / Characteristics Respiratory Depth Respiratory Pattern Blood Pressure 134/86 Blood Pressure [Right Arm] Blood Pressure Mean 91 Blood Pressure Mean [Right Arm] Pulse Oximetry Oxygen Delivery Method Sepsis Recent Fever Within 48 Hours Sepsis New/Unexplained Change in Mental Status Sepsis Action Taken by Nursing 09/12/24 18:00 09/12/24 18:00 09/12/24 18:00 Temperature Temperature Source Pulse Rate Pulse Rate [Right Finger] Pulse Rate from SpO2 Sensor Respiratory Rate Respiratory Effort / Characteristics Respiratory Depth Respiratory Pattern Blood Pressure 134/86 134/86 134/86 Blood Pressure [Right Arm] Blood Pressure Mean 91 91 91 Blood Pressure Mean [Right Arm] Pulse Oximetry Oxygen Delivery Method Sepsis Recent Fever Within 48 Hours Sepsis New/Unexplained Change in Mental Status Sepsis Action Taken by Nursing 09/12/24 18:00 09/12/24 18:00 09/12/24 18:00 Temperature Temperature Source Pulse Rate Pulse Rate [Right Finger] Pulse Rate from SpO2 Sensor Respiratory Rate Respiratory Effort / Characteristics Respiratory Depth Respiratory Pattern Blood Pressure 134/86 134/86 134/86 Blood Pressure [Right Arm] Blood Pressure Mean 91 91 91 Blood Pressure Mean [Right Arm] Pulse Oximetry Oxygen Delivery Method Sepsis Recent Fever Within 48 Hours Sepsis New/Unexplained Change in Mental Status Sepsis Action Taken by Nursing 09/12/24 18:00 09/12/24 18:00 09/12/24 18:21 Temperature Temperature Source Pulse Rate 85 Pulse Rate [Right Finger] Pulse Rate from SpO2 Sensor 84 Respiratory Rate 24 Respiratory Effort / Characteristics Respiratory Depth Respiratory Pattern Blood Pressure 134/86 134/86 Blood Pressure [Right Arm] Blood Pressure Mean 91 91 Blood Pressure Mean [Right Arm] Pulse Oximetry 99 Oxygen Delivery Method Sepsis Recent Fever Within 48 Hours Sepsis New/Unexplained Change in Mental Status Sepsis Action Taken by Nursing 09/12/24 18:30 09/12/24 18:30 09/12/24 18:30 Temperature Temperature Source Pulse Rate Pulse Rate [Right Finger] Pulse Rate from SpO2 Sensor Respiratory Rate Respiratory Effort / Characteristics Respiratory Depth Respiratory Pattern Blood Pressure 134/90 134/90 134/90 Blood Pressure [Right Arm] Blood Pressure Mean 103 103 103 Blood Pressure Mean [Right Arm] Pulse Oximetry Oxygen Delivery Method Sepsis Recent Fever Within 48 Hours Sepsis New/Unexplained Change in Mental Status Sepsis Action Taken by Nursing 09/12/24 18:33 Temperature Temperature Source Pulse Rate 81 Pulse Rate [Right Finger] Pulse Rate from SpO2 Sensor 79 Respiratory Rate 20 Respiratory Effort / Characteristics Respiratory Depth Respiratory Pattern Blood Pressure Blood Pressure [Right Arm] Blood Pressure Mean Blood Pressure Mean [Right Arm] Pulse Oximetry 98 Oxygen Delivery Method Sepsis Recent Fever Within 48 Hours Sepsis New/Unexplained Change in Mental Status Sepsis Action Taken by Nursing Laboratory Data 09/12/24 12:30 09/12/24 12:30 Lab Results 09/12/24 09/12/24 Range/Units 12:20 12:30 WBC 11.79 H (4.8-10.8) K/ul RBC 4.05 L (4.70-6.10) M/uL Hgb 12.2 L (14.0-18.0) g/dl Hct 37.6 L (42.0-52.0) % MCV 92.8 (80.0-100.0) fL MCH 30.1 (25.0-34.0) pg MCHC 32.4 (32.0-36.0) g/dL RDW Std Deviation 45.5 (36.4-46.3) fL RDW Coeff of Stormy 13.3 (11.5-14.5) % Plt Count 236 (130-400) K/uL MPV 9.0 L (9.4-12.4) fL Immature Gran % (Auto) 0.6 % Neut % (Auto) 78.9 % Lymph % (Auto) 11.3 % [place] % (Auto) 7.4 % Eos % (Auto) 1.4 % Baso % (Auto) 0.4 % Neut # (Auto) 9.31 H (1.40-6.50) K/uL Lymph # (Auto) 1.33 (1.20-3.40) K/uL Victoria # (Auto) 0.87 H (0.11-0.59) K/uL Eos # (Auto) 0.16 (0.00-0.50) K/uL Baso # (Auto) 0.05 (0.00-0.20) K/uL Immature Gran # (Auto) 0.07 (0.01-0.20) K/uL Sodium 139 (136-145) mmol/L Potassium 3.8 (3.5-5.1) mmol/L Chloride 103 (98-107) mmol/L Carbon Dioxide 32 (21-32) mmol/L Anion Gap 4 (3-11) BUN 21 (6-23) mg/dl Creatinine 0.79 (0.6-1.4) mg/dl Est Cr Clr Drug Dosing Not Reportable eGFR 88.15 BUN/Creatinine Ratio 26.6 H (10-20) Glucose 107 H (70-99(Fasting)) mg/dl Calcium 9.0 (8.6-10.3) mg/dl Total Bilirubin 0.7 (0.2-1.0) mg/dl AST 31 (13-39) U/L ALT 28 (7-52) U/L Alkaline Phosphatase 137 H (34-104) U/L C-Reactive Protein 10.34 H (0-0.5) mg/dl Total Protein 6.9 (6.0-8.3) gm/dl Albumin 3.2 L (3.4-5.0) gm/dl Globulin 3.7 (2.5-4.0) gm/dl Albumin/Globulin Ratio 0.9 (0.9-2) Urine Color Dark Yellow Urine Appearance Turbid A (Clear) Urine pH 6.0 (4.5-7.5) Ur Specific [place] 1.025 (1.000-1.030) Urine Protein 1+ H (Negative) Urine Glucose (UA) Negative (Negative) Urine Ketones Trace H (Negative) Urine Blood 2+ H (Negative) Urine Nitrite Positive A (Negative) Urine Bilirubin 1+ H (Negative) Urine Urobilinogen Negative (Negative) Ur Leukocyte Esterase 3+ H (Negative) Urine WBC (Auto) >50 H (0-5) /hpf Urine RBC (Auto) 6-10 H (0-2) /hpf U Hyaline Cast (Auto) 11-20 H (0-2) /lpf U Epithel Cells (Auto) 0-2 (0-2) /hpf Urine Bacteria (Auto) 4+ H (None Seen) Calcium Oxalate Crystal Present A (None Prsent) Amorphous Sediment Present A (None Prsent) Administered Medications Discontinued Medications Acetaminophen (Ofirmev) 1,000 mg in 100 mls @ 400 mls/hr IV NOW STA Stop: 09/12/24 13:12 Last Infusion: 04/06/25 13:56 Dose: Infused Documented By: [facility] Admin: 09/12/24 13:26 Dose: 400 mls/hr Documented By: MR Imaging Data Radiologist's Impression: Abdomen/Pelvis CT 09/12/24 12:58 EXAMINATION: CT of the abdomen and pelvis performed without contrast. TECHNIQUE: Helical CT images from the lung bases through the symphysis pubis were obtained without contrast. Coronal and sagittal reformatted images were generated at a workstation for further assessment. Dose reduction techniques were achieved by using automatic exposure control and/or adjustment of mA and/or kV according to patient size and/or use of iterative reconstruction technique. COMPARISON: 17 December 2022. HISTORY: Back and flank pain. History of dementia. FINDINGS: Environmental Health And Safety Manager film demonstrates left hip arthroplasty changes. Lung windows demonstrate mild bibasilar subsegmental atelectasis. Soft tissue windows demonstrate mildly stented gallbladder. Liver demonstrates no appreciable mass or biliary dilatation. Hypodensities bilateral kidneys likely representing cysts. Somewhat featureless distal sigmoid colon with moderate air-fluid levels of the rectosigmoid junction and rectum. No discrete mass or mechanical obstruction. Details limited secondary to streak artifact from left hip arthroplasty hardware. Urinary bladder Gamboa catheter is in place. Urinary bladder is decompressed. Calcifications at this level may represent urinary bladder stones. Moderate gas and stool-filled large bowel particular at the level of the proximal transverse colon. Appendix is not identified. No discrete acute appendiceal disease. Prominent anterior paravertebral soft tissue volume and attenuation thoracolumbar region. No discrete mass or hemorrhage. Although limited without intravenous and oral contrast remaining solid and hollow organs of the abdomen and pelvis are within normal limits. No free air. Bone windows demonstrate lucencies involving the apical vertebral body endplates of T12 and L1. Nondisplaced fractures are not excluded. Intervertebral disc height loss is noted. No discrete soft tissue mass. No additional acute osseous process. IMPRESSION: 1. Featureless sigmoid colon with at least moderate air-fluid distended rectum of uncertain etiology. No discrete mass or mechanical obstruction. Inflammatory or infectious process must be considered. Correlate with clinical data. 2. Appendix not identified. No discrete findings to indicate acute appendiceal disease. 3. Likely benign renal cyst. Ultrasound would be helpful for further characterization if indicated. 4. Decompressed urinary bladder with Gamboa catheter in place. Question urinary bladder stones. 5. Linear lucencies involving the apposed vertebral body endplates of T12 and L1 which may represent atypical nondisplaced fractures. Infectious or inflammatory process cannot be excluded. MRI would be helpful for further characterization. Please see above for details. Electronically signed by Kamran Nicolas 09-12-2024 4:[address] 09/12/24 12:58 Exam: CT lumbar spine without contrast. History: Dementia. Back pain. Comparison: 17 December [address] Technique: Routine CT images of the lumbar spine without contrast. Sagittal and coronal reconstructed series were obtained and reviewed. Findings: Environmental Health And Safety Manager film demonstrates no acute abnormality. Soft tissue windows demonstrate increased soft tissue volume and attenuation anterior paravertebral T12-L1 level. Hypodensity in the left kidney likely representing a benign cyst. Bone windows demonstrate Bridging anterior osteophytes of bilateral sacroiliac joints. Diffuse demineralization is noted. There is a transverse lucency involving the inferior endplate of T12 consistent with nondisplaced fracture. This extends from the ventral aspect of the vertebral body to the posterior aspect of the endplate. Difficulty excluding definitive extension into the posterior vertebral body. Vertebral body height is maintained. Additional irregularity with lucency and absence of normal cortex involving the anterior superior endplate of L1. Additional oblique lucency involving the posterior superior plate of L1 is noted. This is best seen on the sagittal series. A nondisplaced fracture at this level is not excluded. 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 Multilevel disc degeneration with endplate osteophytes and facet arthropathy. Impression: Linear lucencies involving the apposed vertebral body endplates of T12 and L1 which may represent acute atypical nondisplaced fractures. Detail is limiting with diffuse mineralization. Associated paraspinal soft tissue edema. Infectious process cannot be excluded although not favored. Recommend MR if not contraindicated. Neurosurgical consult should be considered. Electronically signed by Kamran Nicolas 09-12-2024 4:17 PM Discharge Plan Visit Data Chief Complaint: Back Injury/Pain Stated Complaint: SEVERE BACK PAIN UPON TRANSITIONS ED Provider: Broderick Bauman Discharge Problem: Back pain, Leukocytosis, Acute UTI (urinary tract infection) Forms Stand Alone Forms: [employer] Prescriptions Prescriptions: No Action pantoprazole [Protonix] 40 mg tablet,delayed release (DR/EC) 40 mg PO DAILY Qty: 90 3RF folic acid 1 mg tablet 1 mg PO QAM 30 Days Qty: 30 5RF aspirin 81 mg capsule 81 mg PO DAILY acetaminophen 500 mg tablet 1,000 mg PO Q6 PRN (Reason: pain/fever >101.4) cholecalciferol (vitamin D3) [Vitamin D3] 25 mcg (1,000 unit) Tablet 25 mcg PO DAILY losartan 25 mg tablet 25 mg PO QPM mirabegron [Myrbetriq] 25 mg tablet extended release 24 hr 25 mg PO DAILY cranberry 500 mg Capsule 500 mg PO QPM Rx Instructions: administer with meals Referrals Referrals: Shannan Miranda DO [Primary Care Provider] -
[2024-09-12 15:04] LABS: Amorphous Sediment Urine Present (None Prsent); Appearance Urine Turbid (Clear); Bacteria Urine Automated 4+ (None Seen); Bilirubin Urine 1+ (Negative); Blood Urine 2+ (Negative); Calcium Oxalate Crystals Urine Present (None Prsent); Color Urine Dark Yellow; Epithelial Cell Urine Auto 0-2 /hpf (0-2); Glucose Urine UA Negative (Negative); Ketones Urine Trace (Negative); Leukocyte Esterase Urine 3+ (Negative); Nitrite Urine Positive (Negative); Protein Urine 1+ (Negative); Specific Gravity Urine 1.025 (1.000-1.030); Urobilinogen Urine Negative (Negative); WBC Urine Automated >50 /hpf (0-5)
--- NOTE | 2024-09-12 16:20 | CT Scan Report ---
Exam: CT lumbar spine without contrast. History: Dementia. Back pain. Comparison: 17 December [address] Technique: Routine CT images of the lumbar spine without contrast. Sagittal and coronal reconstructed series were obtained and reviewed. Findings: Block Piler film demonstrates no acute abnormality. Soft tissue windows demonstrate increased soft tissue volume and attenuation anterior paravertebral T12-L1 level. Hypodensity in the left kidney likely representing a benign cyst. Bone windows demonstrate Bridging anterior osteophytes of bilateral sacroiliac joints. Diffuse demineralization is noted. There is a transverse lucency involving the inferior endplate of T12 consistent with nondisplaced fracture. This extends from the ventral aspect of the vertebral body to the posterior aspect of the endplate. Difficulty excluding definitive extension into the posterior vertebral body. Vertebral body height is maintained. Additional irregularity with lucency and absence of normal cortex involving the anterior superior endplate of L1. Additional oblique lucency involving the posterior superior plate of L1 is noted. This is best seen on the sagittal series. A nondisplaced fracture at this level is not excluded. 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 Multilevel disc degeneration with endplate osteophytes and facet arthropathy. Impression: Linear lucencies involving the apposed vertebral body endplates of T12 and L1 which may represent acute atypical nondisplaced fractures. Detail is limiting with diffuse mineralization. Associated paraspinal soft tissue edema. Infectious process cannot be excluded although not favored. Recommend MR if not contraindicated. Neurosurgical consult should be considered. Electronically signed by Kamran Nicolas 09-12-2024 4:17 PM
--- NOTE | 2024-09-12 16:29 | CT Scan Report ---
EXAMINATION: CT of the abdomen and pelvis performed without contrast. TECHNIQUE: Helical CT images from the lung bases through the symphysis pubis were obtained without contrast. Coronal and sagittal reformatted images were generated at a workstation for further assessment. Dose reduction techniques were achieved by using automatic exposure control and/or adjustment of mA and/or kV according to patient size and/or use of iterative reconstruction technique. COMPARISON: 17 December 2022. HISTORY: Back and flank pain. History of dementia. FINDINGS: Checkman film demonstrates left hip arthroplasty changes. Lung windows demonstrate mild bibasilar subsegmental atelectasis. Soft tissue windows demonstrate mildly stented gallbladder. Liver demonstrates no appreciable mass or biliary dilatation. Hypodensities bilateral kidneys likely representing cysts. Somewhat featureless distal sigmoid colon with moderate air-fluid levels of the rectosigmoid junction and rectum. No discrete mass or mechanical obstruction. Details limited secondary to streak artifact from left hip arthroplasty hardware. Urinary bladder Gamboa catheter is in place. Urinary bladder is decompressed. Calcifications at this level may represent urinary bladder stones. Moderate gas and stool-filled large bowel particular at the level of the proximal transverse colon. Appendix is not identified. No discrete acute appendiceal disease. Prominent anterior paravertebral soft tissue volume and attenuation thoracolumbar region. No discrete mass or hemorrhage. Although limited without intravenous and oral contrast remaining solid and hollow organs of the abdomen and pelvis are within normal limits. No free air. Bone windows demonstrate lucencies involving the apical vertebral body endplates of T12 and L1. Nondisplaced fractures are not excluded. Intervertebral disc height loss is noted. No discrete soft tissue mass. No additional acute osseous process. IMPRESSION: 1. Featureless sigmoid colon with at least moderate air-fluid distended rectum of uncertain etiology. No discrete mass or mechanical obstruction. Inflammatory or infectious process must be considered. Correlate with clinical data. 2. Appendix not identified. No discrete findings to indicate acute appendiceal disease. 3. Likely benign renal cyst. Ultrasound would be helpful for further characterization if indicated. 4. Decompressed urinary bladder with Gamboa catheter in place. Question urinary bladder stones. 5. Linear lucencies involving the apposed vertebral body endplates of T12 and L1 which may represent atypical nondisplaced fractures. Infectious or inflammatory process cannot be excluded. MRI would be helpful for further characterization. Please see above for details. Electronically signed by Kamran Nicolas 09-12-2024 4:29 PM
--- NOTE | 2024-09-12 18:29 | History & Physical Report ---
Date of Service September 12, 2024 Assessment & Plan (1) Back pain: Plan: Patient admitted with back pain. CT scan showed possible fracture of T12 and L1 will need MRI to confirm fracture vs infection. However due to recent cardiovascular surgery on aorta, will need to get records to ensure the safety of the patient. will place on empiric antibitoics and will consult ortho spine. (2) Dementia: Plan: Patient with dementia. Family would like to be called if patient becomes agitated as sedating meds worsen his confusion. (3) Hypertension: Plan: resume home meds (4) Dyslipidemia: Plan: not on statins (5) BPH (benign prostatic hyperplasia): Plan: patient is voiding. History of Present Illness Chief Complaint: back pain Primary Care Provider: Shannan Miranda DO 83 yo male with dementia comes in with back pain. Patient is a poor historian due to his dementia. His daughter is at bedside and is able to provide history Patient has not had a fever but over the course of the past few weeks, he has become weaker, especially in his lower extremities and has been compaling of back pain. In the ED, CT scan of lumbar spine showed signs of possible fracture versus inflammatory process. MRI was to be ordered to further evaluate however due to aortic bicuspid valve replacement, and aorta surgery, will need to get records to ensure safety. Admission will be called. Allergies Allergy/AdvReac Type Severity Reaction Status Date / Time codeine AdvReac Intermediate GI SYMPTOMS Verified 07/20/24 09:42 Opioids - Morphine Analogues AdvReac Intermediate Vomiting Verified 07/20/24 09:42 Opioids-Meperidine and AdvReac Intermediate Vomiting Verified 07/20/24 09:42 Related Opioids-Methadone and Related AdvReac Intermediate Vomiting Verified 07/20/24 09:42 oxycodone [From Percocet] AdvReac Intermediate n/v Verified 07/20/24 09:42 Anesthesia AdvReac Severe Vomiting Uncoded 07/20/24 09:42 Home Medications Medication Instructions Recorded Confirmed Type cholecalciferol (vitamin D3) 25 25 mcg PO DAILY 08/27/23 09/12/24 History mcg (1,000 unit) tablet (Vitamin D3) pantoprazole 40 mg tablet,delayed 40 mg PO DAILY #90 tabs 10/23/23 09/12/24 Rx release (Protonix) cranberry 500 mg capsule 500 mg PO QPM 12/05/23 09/12/24 History acetaminophen 500 mg tablet 1,000 mg PO Q6 PRN pain/fever 05/10/24 09/12/24 History >101.4 folic acid 1 mg tablet 1 mg PO QAM 30 days #30 tabs 07/28/24 09/12/24 Rx Lactobacillus rhamnosus GG 1 cap PO QAM 09/12/24 09/12/24 History aspirin 81 mg tablet,delayed 81 mg PO DAILY 09/12/24 09/12/24 History release food supplemt, lactose-reduced 1 ea PO QS 09/12/24 09/12/24 History hydrocortisone 1 % topical cream 1 applic topical QS PRN Rash 09/12/24 09/12/24 History ibuprofen 200 mg tablet 400 mg PO BID 09/12/24 09/12/24 History losartan 25 mg tablet 25 mg PO QPM 09/12/24 09/12/24 History mirabegron 25 mg tablet,extended 25 mg PO DAILY 09/12/24 09/12/24 History release 24 hr (Myrbetriq) multivitamin with minerals 1 tab PO DAILY 09/12/24 09/12/24 History (Multiple Vitamin-Minerals tablet) Past Med/Surg History Problem List Acute UTI (urinary tract infection) (Acute) Leukocytosis (Acute) Back pain (Acute) Hematuria Urinary retention Recurrent Clostridioides difficile diarrhea Abnormal CT scan, colon Aneurysm of aortic arch Depression with anxiety (Chronic) Obstructive sleep apnea (Chronic) Polyneuropathy (Chronic) Renal cyst, acquired (Acute) Seizure disorder (Chronic) Sensorineural hearing loss (SNHL) of both ears (Acute) Dyslipidemia BPH (benign prostatic hyperplasia) PAC (premature atrial contraction) Facet arthritis, degenerative, L5-S1 level, lumbosacral spine Hyponatremia Bicuspid aortic valve Vitamin D deficiency Dementia (Acute) Ambulatory dysfunction (Acute) Anemia Hypertension Medical History Esophageal candidiasis Fracture of femoral neck, left, closed Bladder stones Low back pain BPPV (benign paroxysmal positional vertigo) Family history of prostate cancer 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 difficile colitis Coronary artery disease involving autologous artery coronary bypass graft Gross hematuria History of bicuspid aortic valve History of TIA (transient ischemic attack) SEPTEMBER 14, 2018 - (USUALLY TIA OCCURS 1X PER YR/STARTED 5 YR AGO)/DR FARRELL History of stroke 2012 - RESIDUAL: STABILITY ISSUE History of anesthesia reaction WITH HERNIA SURGERY ([facility]) HAD TROUBLE WAKING UP Lyme disease Seizure X1 OR 2 - WHEN TX FOR STROKE IN 2012/ DR FARRELL Surgical History S/P hip hemiarthroplasty History of aortic valve replacement History of appendectomy (03/16/13) History of colonoscopy History of hernia surgery X2 History of repair of right rotator cuff H/O aortic valve replacement 2013 - AND BICUSPID VALVE REPLACED AT SAME TIME PER PT REPORT /"OPEN HEART" 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 H/O aortic aneurysm repair Family History Mother , age 70 of lung cancer Lung cancer COPD (chronic obstructive pulmonary disease) Father , age 91 of prostate cancer Prostate cancer Coronary heart disease Myocardial infarction Family/Other Breast cancer Cancer Other Heart disease No family history of adverse response to anesthesia No family history of bleeding disorder Social History Smoking Status: Never smoker Second Hand Exposure: No; Do You Dip or Chew Tobacco: No; Hx Alcohol Use: No Hx Substance Use: No Preferred Language: Austrian Communication Ability: Impaired Communication Ability Comment: , Roxana Lopez, is POA. Visual Impairment: No Limitations Hearing Ability: Normal Senior Safety Support Manager Required: No Beliefs That Will Affect Care: None marital status: Current Living Situation: Personal Care Facility current occupational status: retired Feels Safe at Home: Yes Assistive Devices: Wheelchair Review of Systems Review of Systems: Unobtainable due to cognitive status Physical Exam Constitutional: WD/WN, vitals as above Eyes: PERRL, conjunctivae normal, anicteric sclerae Neck: trachea midline, no thyromegaly Respiratory: normal respiratory effort, lungs clear to auscultation Cardiovascular: RRR, no murmur, no edema Gastrointestinal (Abdomen): normal bowel sounds, soft, nontender, no hepatosplenomegaly Neurologic: + confused and + obtunded Psychiatric: Orientation: + not oriented x 3 Lymphatic: no cervical or axillary lymphadenopathy Results & Data Results & Data Vital Signs (Past 12 Hours) Vital Signs Temp Pulse Pulse Resp BP BP Pulse Ox 09/12/24 17:41 86 09/12/24 16:02 82 18 09/12/24 16:00 130/91 09/12/24 16:00 130/91 09/12/24 16:00 130/91 09/12/24 16:00 130/91 09/12/24 16:00 130/91 09/12/24 16:00 130/91 09/12/24 16:00 130/91 09/12/24 15:50 83 18 09/12/24 15:32 83 23 09/12/24 15:30 101/62 09/12/24 15:30 101/62 09/12/24 15:30 101/62 09/12/24 15:30 101/62 09/12/24 15:30 101/62 09/12/24 15:30 101/62 09/12/24 15:30 101/62 09/12/24 15:30 101/62 09/12/24 15:30 101/62 09/12/24 15:30 101/62 09/12/24 15:29 82 23 09/12/24 15:11 86 22 09/12/24 15:00 130/55 L 09/12/24 15:00 130/55 L 09/12/24 15:00 130/55 L 09/12/24 15:00 130/55 L 09/12/24 15:00 130/55 L 09/12/24 15:00 130/55 L 09/12/24 15:00 130/55 L 09/12/24 15:00 130/55 L 09/12/24 15:00 130/55 L 09/12/24 15:00 130/55 L 09/12/24 15:00 130/55 L 09/12/24 15:00 130/55 L 09/12/24 15:00 130/55 L 09/12/24 15:00 130/55 L 09/12/24 14:44 80 23 09/12/24 14:30 109/77 09/12/24 14:30 109/77 09/12/24 14:30 109/77 09/12/24 14:30 109/77 09/12/24 14:30 109/77 09/12/24 14:30 109/77 09/12/24 14:30 109/77 09/12/24 14:30 109/77 09/12/24 14:21 85 23 09/12/24 14:09 85 26 H 98 09/12/24 13:51 85 20 98 09/12/24 13:29 108/74 09/12/24 13:29 108/74 09/12/24 13:29 84 20 108/74 09/12/24 12:31 88 09/12/24 12:11 36.4 C L 96 H 20 106/75 96 O2 Del Method 09/12/24 17:41 09/12/24 16:02 09/12/24 16:00 09/12/24 16:00 09/12/24 16:00 09/12/24 16:00 09/12/24 16:00 09/12/24 16:00 09/12/24 16:00 09/12/24 15:50 09/12/24 15:32 09/12/24 15:30 09/12/24 15:30 09/12/24 15:30 09/12/24 15:30 09/12/24 15:30 09/12/24 15:30 09/12/24 15:30 09/12/24 15:30 09/12/24 15:30 09/12/24 15:30 09/12/24 15:29 09/12/24 15:11 09/12/24 15:00 09/12/24 15:00 09/12/24 15:00 09/12/24 15:00 09/12/24 15:00 09/12/24 15:00 09/12/24 15:00 09/12/24 15:00 09/12/24 15:00 09/12/24 15:00 09/12/24 15:00 09/12/24 15:00 09/12/24 15:00 09/12/24 15:00 09/12/24 14:44 09/12/24 14:30 09/12/24 14:30 09/12/24 14:30 09/12/24 14:30 09/12/24 14:30 09/12/24 14:30 09/12/24 14:30 09/12/24 14:30 09/12/24 14:21 09/12/24 14:09 09/12/24 13:51 09/12/24 13:29 09/12/24 13:29 09/12/24 13:29 Room Air 09/12/24 12:31 09/12/24 12:11 Room Air PG Care Time/CCT Total # of Minutes Spent Total Time Spent with Patient: Total time spent is greater than 50% in coordination of care (as documented) at patient's floor/unit and/or counseling patient: Coding Level of Care Code 63762 INT INP/OBS CARE 3/75MIN Diagnoses Back pain M54.9 Dementia F03.90 Dementia behavioral or psychological symptom: unspecified whether behavioral, psychotic, or mood disturbance or anxiety Dementia severity: unspecified severity Dementia type: unspecified type Hypertension I10 Dyslipidemia E78.5 BPH (benign prostatic hyperplasia) N40.0 (2) Dementia Dementia behavioral or psychological symptom: unspecified whether behavioral, psychotic, or mood disturbance or anxiety Dementia severity: unspecified severity Dementia type: unspecified type Qualified Code(s): F03.90 - Unspecified dementia, unspecified severity, without behavioral disturbance, psychotic disturbance, mood disturbance, and anxiety
[2024-09-12 18:52] LABS: C Reactive Protein 10.34 mg/dl (0-0.5)
[2024-09-12] MEDS: CEFEPIME 2000MG 2,000 MG/20 ML SYR IV STA (19:16)
[2024-09-12] MEDS ORDERED: ACETAMINOPHEN 500 MG TAB PO PRN (19:16)
[2024-09-12] MEDS: DAPTOmycin 400 MG in SYRINGE 0 ML IV ONE (19:16)
[2024-09-12] MEDS ORDERED: HYDROCORTISONE 1% CRM 30 GM TUBE EXT PRN (19:16)
[2024-09-12] MEDS ORDERED: NON-FORMULARY MEDICATION (Cranberry 500 mg Capsule) PO SCH (21:00)
[2024-09-12] MEDS: LOSARTAN POTASSIUM 25 MG TAB PO SCH (22:15)
[2024-09-12] MEDS: IBUPROFEN 200 MG TAB PO SCH (22:16)
[2024-09-13] MEDS ORDERED: NON-FORMULARY MEDICATION (Food Supplemt, Lactose-Reduced Liquid) PO SCH
[2024-09-13] MEDS: CEFEPIME 2000MG 2,000 MG/20 ML SYR IV SCH (01:58)
[2024-09-13] MEDS: CEROVITE ADV FORMULA TAB PO SCH (07:54)
[2024-09-13] MEDS: CHOLECALCIFEROL 25 MCG (1000 UNITS) TAB PO SCH (07:54)
[2024-09-13] MEDS: ASPIRIN 81 MG ECTAB PO SCH (07:54)
[2024-09-13] MEDS: PANTOprazole 40 MG TAB PO SCH (07:54)
[2024-09-13] MEDS: VIBEGRON 75 MG TAB PO SCH (07:54)
[2024-09-13] MEDS: FOLIC ACID 1 MG TAB PO SCH (07:54)
[2024-09-13 08:04] LABS: Basophils # (auto) 0.04 K/uL (0.00-0.20); Basophils % (auto) 0.5 %; Eosinophils # (auto) 0.44 K/uL (0.00-0.50); Eosinophils % (auto) 5.8 %; Hematocrit (blood only) 32.4 % (42.0-52.0); Hemoglobin 10.6 g/dl (14.0-18.0); Immature Granulocytes # (auto) 0.05 K/uL (0.01-0.20); Immature Granulocytes % (auto) 0.7 %; Lymphocytes # (auto) 1.43 K/uL (1.20-3.40); Mean Corpuscular Hemoglobin 30.3 pg (25.0-34.0); Mean Corpuscular Hgb Conc 32.7 g/dL (32.0-36.0); Mean Corpuscular Volume 92.6 fL (80.0-100.0); Mean Platelet Volume 9.4 fL (9.4-12.4); Monocytes # (auto) 0.73 K/uL (0.11-0.59); Monocytes % (auto) 9.7 %; Neutrophils # (auto) 4.85 K/uL (1.40-6.50); Neutrophils % (auto) 64.3 %; Platelet Count 204 K/uL (130-400); RDW Coefficient of Variation 13.2 % (11.5-14.5); White Blood Count 7.54 K/ul (4.8-10.8)
[2024-09-13 08:36] LABS: BUN Creatinine Ratio 21.8 (10-20); C Reactive Protein 9.18 mg/dl (0-0.5); Calcium 8.3 mg/dl (8.6-10.3); Creatinine Clr Calc Pharmacy 70.2 ml/min; Potassium 3.3 mmol/L (3.5-5.1)
[2024-09-13 08:47] LABS: A calco-baum cmplx NotReported Not Detected (NotDetected); Bact fragilis Not Reported Not Detected (NotDetected); Blood Culture Id Panel See PCR Comment (NotDetected); C auris Not Reported Not Detected (NotDetected); Calbicans Not Reported Not Detected (NotDetected); Candida glabrata Not Reported Not Detected (NotDetected); Candida krusei Not Reported Not Detected (NotDetected); Cneoformans/gatti Not Reported Not Detected (NotDetected); Cparapsilosis Not Reported Not Detected (NotDetected); E cloacae compx Not Reported Not Detected (NotDetected); Efaecalis Not Reported Not Detected (NotDetected); Efaecium Not Reported DETECTED (NotDetected); Enterobacterales Not Reported Not Detected (NotDetected); Escherichia coli Not Reported Not Detected (NotDetected); H influenzae Not Reported Not Detected (NotDetected); K aerogenes Not Reported Not Detected (NotDetected); Koxytoca Not Reported Not Detected (NotDetected); Kpneumoniae grp Not Reported Not Detected (NotDetected); Lmonocyt Not Reported Not Detected (NotDetected); N meningitidis Not Reported Not Detected (NotDetected); P aeruginosa Not Reported Not Detected (NotDetected); Proteus spp Not Reported Not Detected (NotDetected); Salmonella spp Not Reported Not Detected (NotDetected); Staph lugdunensis Not Reported Not Detected (NotDetected); Staph spp. Not Reported Not Detected (NotDetected); Staphaureus Not Reported Not Detected (NotDetected); Staphepi Not Reported Not Detected (NotDetected); Stenmaltophilia Not Reported Not Detected (NotDetected); Strep agal(GrpB) Not Reported Not Detected (NotDetected); Strep pneum Not Reported Not Detected (NotDetected); Strep pyog (GrpA) Not Reported Not Detected (NotDetected); Strep spp Not Reported Not Detected (NotDetected); VanAB Resistant Gene VRE DETECTED (NotDetected)
[2024-09-13] MEDS ORDERED: LACTOBACILLUS RHAMNOSUS GG PO SCH (09:00)
--- NOTE | 2024-09-13 09:11 | Orthopedic Consultation ---
Date of Service September 13, 2024 Assessment & Plan (1) Back pain: History of Present Illness Reason for Consultation: Possible low back pain Requesting Physician: . Attending Physician: Richard Fredy Jefferson 83 year old Male arrives to the emergency room on September 12, 2024 for evaluation of back pain. Patient has a history of significant dementia. They note that he resides at [facility]. The this morning reports he has had several days of grimacing and discomfort with transferring. They suspect he had some pain in the lower back on the right side. There was no reported falls but she reports that the patient was found on the floor without witnessed falls. Patient does have a history of UTI. He has an indwelling Gamboa catheter for the last 2 years. This was just changed at the end of this week. No fever reported. History is limited secondary to the patient's advanced dementia. Exam limited as the patient was not cooperative for moving lower extremities though intermittent spontaneous motion was noted with the feet in terms of ankle dorsiflexion, but no reliable exam achieved. Palpation of the lumbar and thoracic spine though it did not reveal the patient to grimace at all or exhibit any complaints of pain. CT lumbar spine without contrast September 12, 2024. History: Dementia. Back pain. Comparison: 17 December [address] Findings: Reporter Anchor film demonstrates no acute abnormality. Soft tissue windows demonstrate increased soft tissue volume and attenuation anterior paravertebral T12-L1 level. Hypodensity in the left kidney likely representing a benign cyst. Bone windows demonstrate Bridging anterior osteophytes of bilateral sacroiliac joints. Diffuse demineralization is noted. There is a transverse lucency involving the inferior endplate of T12 consistent with nondisplaced fracture. This extends from the ventral aspect of the vertebral body to the posterior asp ect of the endplate. Difficulty excluding definitive extension into the posterior vertebral body. Vertebral body height is maintained. Additional irregularity with lucency and absence of normal cortex involving the anterior superior endplate of L1. Additional oblique lucency involving the posterior superior plate of L1 is noted. This is best seen on the sagittal series. A nondisplaced fracture at this level is not excluded. 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 Multilevel disc degeneration with endplate osteophytes and facet arthropathy. Impression: Linear lucencies involving the apposed vertebral body endplates of T12 and L1 which may represent acute atypical nondisplaced fractures. Detail is limiting with diffuse mineralization. Associated paraspinal soft tissue edema. Infectious process cannot be excluded although not favored. Recommend MR if not contraindicated. Neurosurgical consult should be considered. CT scan images of the abdomen and pelvis/lumbar spine from September 12, 2024 at [facility] was reviewed, this my separate interpretation, this reveals multilevel degenerative changes throughout the lumbar and lower thoracic spine. Abnormalities involving the endplates of T12 inferiorly and superior aspect of L1 with slight lucencies potentially indicating fracture of the osteophytes and/or endplates, this does not appear to have findings suggestive of an infectious process. Review of scan images of previous abdominal CT scans reveals what appears to be roughly similar shape to the vertebral bodies but indeterminate due to lack of reformats. Impression: According to , approximately 2-week history of low back pain when doing transitions, no witnessed falls but the patient was found on the floor at least once indicating potential fall onto floor with CT scan indicating potential fractures inferior endplate of T12 at superior plate of L1 but minimally displaced. Plan: After reviewing images, the possibilities of minor fractures of the endplates are possible, but MRI will be helpful in making a final determination as to the source of the symptoms and any infectious process which I think is doubtful, when taking into account minimally elevated WBC, but with indwelling Gamboa infectious process is potential issue. Will await this imaging before making any determinations as to any other treatment such as bracing. Can treat with appropriate pain medications and mobilization the chair. Allergies Allergy/AdvReac Type Severity Reaction Status Date / Time codeine AdvReac Intermediate GI SYMPTOMS Verified 07/20/24 09:42 Opioids - Morphine Analogues AdvReac Intermediate Vomiting Verified 07/20/24 09:42 Opioids-Meperidine and AdvReac Intermediate Vomiting Verified 07/20/24 09:42 Related Opioids-Methadone and Related AdvReac Intermediate Vomiting Verified 07/20/24 09:42 oxycodone [From Percocet] AdvReac Intermediate n/v Verified 07/20/24 09:42 Anesthesia AdvReac Severe Vomiting Uncoded 07/20/24 09:42 Home Medications Medication Instructions Recorded Confirmed Type cholecalciferol (vitamin D3) 25 25 mcg PO DAILY 08/27/23 09/12/24 History mcg (1,000 unit) tablet (Vitamin D3) pantoprazole 40 mg tablet,delayed 40 mg PO DAILY #90 tabs 10/23/23 09/12/24 Rx release (Protonix) cranberry 500 mg capsule 500 mg PO QPM 12/05/23 09/12/24 History acetaminophen 500 mg tablet 1,000 mg PO Q6 PRN pain/fever 05/10/24 09/12/24 Hi story >101.4 folic acid 1 mg tablet 1 mg PO QAM 30 days #30 tabs 07/28/24 09/12/24 Rx Lactobacillus rhamnosus GG 1 cap PO QAM 09/12/24 09/12/24 History aspirin 81 mg tablet,delayed 81 mg PO DAILY 09/12/24 09/12/24 History release food supplemt, lactose-reduced 1 ea PO QS 09/12/24 09/12/24 History hydrocortisone 1 % topical cream 1 applic topical QS PRN Rash 09/12/24 09/12/24 History ibuprofen 200 mg tablet 400 mg PO BID 09/12/24 09/12/24 History losartan 25 mg tablet 25 mg PO QPM 09/12/24 09/12/24 History mirabegron 25 mg tablet,extended 25 mg PO DAILY 09/12/24 09/12/24 History release 24 hr (Myrbetriq) multivitamin with minerals 1 tab PO DAILY 09/12/24 09/12/24 History (Multiple Vitamin-Minerals tablet) Past Med/Surg History Problem List (Updated 09/13/24 @ 19:17 by [place] Noriega MD) Gram-positive bacteremia Acute UTI (urinary tract infection) (Acute) Leukocytosis (Acute) Back pain (Acute) Hematuria Urinary retention Recurrent Clostridioides difficile diarrhea Abnormal CT scan, colon Aneurysm of aortic arch Depression with anxiety (Chronic) Obstructive sleep apnea (Chronic) Polyneuropathy (Chronic) Renal cyst, acquired (Acute) Seizure disorder (Chronic) Sensorineural hearing loss (SNHL) of both ears (Acute) Dyslipidemia BPH (benign prostatic hyperplasia) PAC (premature atrial contraction) Facet arthritis, degenerative, L5-S1 level, lumbosacral spine Hyponatremia Bicuspid aortic valve Vitamin D deficiency Dementia (Acute) Ambulatory dysfunction (Acute) Anemia Hypertension Medical History Esophageal candidiasis Fracture of femoral neck, left, closed Bladder stones Low back pain BPPV (benign paroxysmal positional vertigo) Family history of prostate cancer 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 difficile colitis Coronary artery disease involving autologous artery coronary bypass graft Gross hematuria History of bicuspid aortic valve History of TIA (transient ischemic attack) SEPTEMBER 14, 2018 - (USUALLY TIA OCCURS 1X PER YR/STARTED 5 YR AGO)/DR FARRELL History of stroke 2012 - RESIDUAL: STABILITY ISSUE History of anesthesia reaction WITH [facility] HAD TROUBLE WAKING UP Lyme disease Seizure X1 OR 2 - WHEN TX FOR STROKE IN 2012/ DR FARRELL Surgical History S/P hip hemiarthroplasty History of aortic valve replacement History of appendectomy (03/16/13) History of colonoscopy History of hernia surgery X2 History of repair of right rotator cuff H/O aortic valve replacement 2013 - AND BICUSPID VALVE REPLACED AT SAME TIME PER PT REPORT /"OPEN HEART" 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 H/O aortic aneurysm repair Family History Mother , age 70 of lung cancer Lung cancer COPD (chronic obstructive pulmonary disease) Father , age 91 of prostate cancer Prostate cancer Coronary heart disease Myocardial infarction Family/Other Breast cancer Cancer Other Heart disease No family history of adverse response to anesthesia No family history of bleeding disorder Social History Smoking Status: Never smoker Second Hand Exposure: No; Do You Dip or Chew Tobacco: No; Hx Alcohol Use: No Hx Substance Use: No Preferred Language: Vietnamese Communication Ability: Impaired Communication Ability Comment: , Roxana Lopez, is POA. 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 Physical Exam . Results & Data Results & Data Laboratory Results . Diagnostic Findings . PG Care Time/CCT Total # of Minutes Spent Total Time Spent with Patient: Total time spent is greater than 50% in coordination of care (as documented) at patient's floor/unit and/or counseling patient: Coding Level of Care Code 61694 IN/OBS CONSULT LVL 4,60M Diagnoses Back pain M54.9
[2024-09-13 09:38] LABS: Enterococcus faecium DETECTED (NotDetected)
[2024-09-13] MEDS: ACETAMINOPHEN 325 MG TAB PO SCH (12:34)
[2024-09-13] MEDS: DAPTOmycin 700 MG in SYRINGE 0 ML IV SCH (13:57)
[2024-09-13] MEDS: POTASSIUM CHLORIDE CRTAB 20 MEQ TABCR PO STA (17:04)
--- NOTE | 2024-09-13 19:18 | Infectious Disease Consult ---
Date of Consultation September 13, 2024 Assessment & Plan (1) Gram-positive bacteremia: (2) Back pain: (3) Leukocytosis: (4) Recurrent Clostridioides difficile diarrhea: Plan ID Problem List: #GPCs in chains bacteremia #Back pain, T12-L1 findings on 09/12 CT c/f discitis/osteomyelitis #History of aortic valve replacement and proximal aorta repair 2013 #History of C. diff #Chronic indwelling Martinez in place Impression: Keith Lopez is an 82yo M and resident of [facility] with h/o prior CVA, dementia, seizure, chronic indwelling martinez, recurrent UTIs, paroxysmal atrial tachycardia, aortic valve replacement/proximal aortic aneurysm repair 2013, left hip replacement in 2022, HTN, prior C. diff infection 07/2023 with recurrence 08/2023, who presented to [facility] on 09/12/24 with back pain, found to have 4/6 BCx + GPCs in chains. L-spine CT c/f T12-L1 infection. ID is consulted for GPC bacteremia. The patient presented with back pain and progressive weakness of the BLE over the last few weeks. Pts family noticed him grimacing during transfers. No reported fevers. The patient has a history of aortic valve replacement/proximal aortic aneurysm repair and L hip replacement. Upon arrival to ED, afebrile, WBC 11.79 ESR 53 CRP 10.34. UA (Martinez) with >50 WBCs, 6-10 RBCs, UCx growing Klebsiella variicola. 4/6 BCx growing GPCs in chains in 2 of 2 sets. /6 CT A/P showing moderate air-fluid distended rectum. 4/[address] with lucencies of endplates of T12-L1 c/f fractures though with associated paraspinal soft tissue edema c/f infection. Ortho was consulted, and felt that the CT could show minor endplate fractures, but recommended MRI for further evaluation. Awaiting spine MRI. The patient follows with outpatient ID, previously for C. diff and continues to follow for recurrent UTIs. The most recent ID clinic note from 07/07/24 is scanned into his chart, reporting that pt has poor Martinez care and often with blood at the urethral meatus, or Martinez tubing not secured to his leg. He has had multiple UTIs reported and treated at [facility], diagnosed due to weakness and confusion. Discussion Pt with GPC bacteremia, and also with suspected spinal infection based on CT scan; awaiting MRI and further recs from orthopedic surgery. Note pt with aortic valve replacement and proximal aorta repair, as well as L hip replacement. In the setting of bacteremia, the back pain and CT findings are highly c/f discitis/osteomyelitis awaiting MRI for further evaluation. 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 Recommend MOIZ given pt with aortic valve replacement and proximal aorta repair. Would repeat BCx daily until clear x48h. Would continue to monitor closely for any new/worsening focal complaints (e.g., joint pain, back pain) with low threshold to image/evaluate as possible metastatic infection. Can continue IV daptomycin for now while awaiting BCx speciation/susceptibility. Note UCx + Klebsiella variicola. Pt with chronic Martinez. Low suspicion for UTI at this time given GPCs in blood as likely source, can hold cefepime and monitor closely. Note pt with prior history of C. diff and recurrence ~1 year prior. Given likelihood of long-term systemic abx, will start secondary ppx for now with once-daily PO vancomycin. Recommendations: - Continue IV daptomycin for now, can adjust pending BCx speciation/susceptibilities - Stop cefepime - Start vancomycin 125 mg PO daily for secondary ppx given h/o recurrent C. diff - Recommend MOIZ given aortic valve repair and bacteremia - Appreciate orthopedic surgery recommendations - F/u / BCx speciation - Repeat BCx daily until clear x48h. Repeat BCx ordered for 09/13 - Continue to monitor closely for any new/worsening focal complaints (e.g., ruben int pain, back pain) with low threshold to image/evaluate as possible metastatic infection ID will continue to follow. Jamaica Noriega MD, MHS Infectious Diseases [facility]/ID Connect ID Connect direct line: [phone] Consultation Information This patient recommendation is based on a telemedicine consult request which was completed asynchronously through chart review and information provided by the primary physician. The patient was not seen or examined today. The evaluation is consultative in nature and all patient care and treatment decisions can either be accepted or rejected by the patient's primary hospital-based treating physician using their own independent medical judgment for their patient. Learning Technologies Specialist contact information: Please call ID Connect Call Center [phone]. (Phone Number For Physician Use Only) Time Spent Reviewing Chart: 31+ minutes History of Present Illness Attending Physician: Richard Jefferson History of Present Illness PLEASE NOTE: E-consult was performed for this visit given that no telepresenter was available at the time of consultation. Keith Lopez is an 82yo M and resident of [facility] with h/o prior CVA, dementia, seizure, chronic indwelling martinez, recurrent UTIs, paroxysmal atrial tachycardia, aortic valve replacement/proximal aortic aneurysm repair 2013, left hip replacement in 2022, HTN, prior C. diff infection 07/2023 with recurrence 08/2023, who presented to [facility] on 09/12/24 with back pain, found to have 4/6 BCx + GPCs in chains. L-spine CT c/f T12-L1 infection. ID is consulted for GPC bacteremia. The patient presented with back pain and progressive weakness of the BLE over the last few weeks. Pts family noticed him grimacing during transfers. No repo rted fevers. The patient has a history of aortic valve replacement/proximal aortic aneurysm repair and L hip replacement. Upon arrival to ED, afebrile, WBC 11.79 ESR 53 CRP 10.34. UA (Martinez) with >50 WBCs, 6-10 RBCs, UCx growing Klebsiella variicola. 4/6 BCx growing GPCs in chains in 2 of 2 sets. 4/6 CT A/P showing moderate air-fluid distended rectum. 4/[address] with lucencies of endplates of T12-L1 c/f fractures though with associated paraspinal soft tissue edema c/f infection. Ortho was consulted, and felt that the CT could show minor endplate fractures, but recommended MRI for further evaluation. Awaiting spine MRI. The patient follows with outpatient ID, previously for C. diff and continues to follow for recurrent UTIs. The most recent ID clinic note from 07/07/24 is scanned into his chart, reporting that pt has poor Martinez care and often with blood at the urethral meatus, or Martinez tubing not secured to his leg. He has had multiple UTIs reported and treated at [facility], diagnosed due to weakness and confusion. Allergies Allergy/AdvReac Type Severity Reaction Status Date / Time codeine AdvReac Intermediate GI SYMPTOMS Verified 07/20/24 09:42 Opioids - Morphine Analogues AdvReac Intermediate Vomiting Verified 07/20/24 09:42 Opioids-Meperidine and AdvReac Intermediate Vomiting Verified 07/20/24 09:42 Related Opioids-Methadone and Related AdvReac Intermediate Vomiting Verified 07/20/24 09:42 oxycodone [From Percocet] AdvReac Intermediate n/v Verified 07/20/24 09:42 Anesthesia AdvReac Severe Vomiting Uncoded 07/20/24 09:42 Home Medications Medication Instructions Recorded Confirmed Type cholecalciferol (vitamin D3) 25 25 mcg PO DAILY 08/27/23 09/12/24 History mcg (1,000 unit) tablet (Vitamin D3) pantoprazole 40 mg tablet,delayed 40 mg PO DAILY #90 tabs 10/23/23 09/12/24 Rx release (Protonix) cranberry 500 mg capsule 500 mg PO QPM 12/05/23 09/12/24 History acetaminophen 500 mg tablet 1,000 mg PO Q6 PRN pain/fever 05/10/24 09/12/24 History >101.4 folic acid 1 mg tablet 1 mg PO QAM 30 days #30 tabs 07/28/24 09/12/24 Rx Lactobacillus rhamnosus GG 1 cap PO QAM 09/12/24 09/12/24 History aspirin 81 mg tablet,delayed 81 mg PO DAILY 09/12/24 09/12/24 History release food supplemt, lactose-reduced 1 ea PO QS 09/12/24 09/12/24 History hydrocortisone 1 % topical cream 1 applic topical QS PRN Rash 09/12/24 09/12/24 History ibuprofen 200 mg tablet 400 mg PO BID 09/12/24 09/12/24 History losartan 25 mg tablet 25 mg PO QPM 09/12/24 09/12/24 History mirabegron 25 mg tablet,extended 25 mg PO DAILY 09/12/24 09/12/24 History release 24 hr (Myrbetriq) multivitamin with minerals 1 tab PO DAILY 09/12/24 09/12/24 History (Multiple Vitamin-Minerals tablet) Patient History Medical History Esophageal candidiasis Fracture of femoral neck, left, closed Bladder stones Low back pain BPPV (benign paroxysmal positional vertigo) Family history of prostate cancer Squamous cell carcinoma of right lower leg Dementia with agitation Chronic indwelling Martinez catheter C. difficile colitis Coronary artery disease involving autologous artery coronary bypass graft Gross hematuria History of bicuspid aortic valve History of TIA (transient ischemic attack) SEPTEMBER 14, 2018 - (USUALLY TIA OCCURS 1X PER YR/STARTED 5 YR AGO)/DR FARRELL History of stroke 2012 - RESIDUAL: STABILITY ISSUE History of anesthesia reaction WITH [facility] HAD TROUBLE WAKING UP Lyme disease Seizure X1 OR 2 - WHEN TX FOR STROKE IN 2012/ DR FARRELL Surgical History S/P hip hemiarthroplasty History of aortic valve replacement History of appendectomy (03/16/13) History of colonoscopy History of hernia surgery X2 History of repair of right rotator cuff H/O aortic valve replacement 2013 - AND BICUSPID VALVE REPLACED AT SAME TIME PER PT REPORT /"OPEN HEART" DENIES HAVING OCCUPATIONAL THERAPIST HOME BASED THAT HE FOLLOWS WITH H/O aortic aneurysm repair Family History Mother , age 70 of lung cancer Lung cancer COPD (chronic obstructive pulmonary disease) Father , age 91 of prostate cancer Prostate cancer Coronary heart disease Myocardial infarction Family/Other Breast cancer Cancer Other Heart disease No family history of adverse response to anesthesia No family history of bleeding disorder Social History Smoking Status: Never smoker Second Hand Exposure: No; Do You Dip or Chew Tobacco: No; Hx Alcohol Use: No Hx Substance Use: No Preferred Language: Hebrew Communication Ability: Impaired Communication Ability Comment: , Roxana Lopez, is POA. Visual Impairment: No Limitations Hearing Ability: Normal Scale Mechanic Required: No Beliefs That Will Affect Care: None marital status: Current Living Situation: Personal Care Facility current occupational status: retired Feels Safe at Home: Yes Assistive Devices: Wheelchair Assistive Devices Comment: usually uses walker, has not been able to for last 2 weeks Results & Data Vital Signs (Past 12 Hours) Vital Signs Temp Pulse Resp BP Pulse Ox O2 Del Method 09/13/24 14:56 36.6 C 81 18 119/73 96 Room Air 09/13/24 08:00 36.6 C 75 18 124/80 96 Room Air Diagnostic Findings Diagnostics: 09/12 L-spine CT Linear lucencies involving the apposed vertebral body endplates of T12 and L1 which may represent acute atypical nondisplaced fractures. Detail is limiting with diffuse mineralization. Associated paraspinal soft tissue edema. Infectious process cannot be excluded although not favored. Recommend MR if not contraindicated. Neurosurgical consult should be considered. 09/12 CT A/P 1. Featureless sigmoid colon with at least moderate air-fluid distended rectum of uncertain etiology. No discrete mass or mechanical obstruction. Inflammatory or infectious process must be considered. Correlate with clinical data. 2. Appendix not identified. No discrete findings to indicate acute appendiceal disease. 3. Likely benign renal cyst. Ultrasound would be helpful for further characterization if indicated. 4. Decompressed urinary bladder with Martinez catheter in place. Question urinary bladder stones. 5. Linear lucencies involving the apposed vertebral body endplates of T12 and L1 which may represent atypical nondisplaced fractures. Infectious or inflammatory process cannot be excluded. MRI would be helpful for further characterization. Please see above for details. Micro Data: 09/13 BCx x2: PEND 09/12 BCx x2: GPCs in chains in 2 of 2 sets (2 of 4 bottles) 09/12 UCx straight cath: Klebsiella variicola prior micro 08/06/24 UCx: MRSA, Pseudomonas aeruginosa Antibiotic Summary: daptomycin (09/12 present) cefepime (09/12 09/13)
--- NOTE | 2024-09-13 22:34 | Hospitalist Progress Note ---
Date of Service September 13, 2024 Assessment & Plan (1) Back pain: Plan: Patient admitted with back pain. CT scan showed possible fracture of T12 and L1 Now with bacteremia. will consult ID. will need MRI to confirm fracture vs infection. However due to recent cardiovascular surgery on aorta, will need to get records to ensure the safety of the patient. Still have not received them from [facility]. will contiue on empiric antibiotics and appreciate ortho spine. (2) Dementia: Plan: Patient with dementia. Family would like to be called if patient becomes agitated as sedating meds worsen his confusion. (3) Hypertension: Plan: resume home meds (4) Dyslipidemia: Plan: not on statins (5) BPH (benign prostatic hyperplasia): Plan: patient is voiding. Admission and Anticipated Discharge Date Admission Date: September 12, 2024 Subjective Patient is a poor historian. His is at bedside and is updated. Physical Exam Constitutional: WD/WN, vitals as above Eyes: PERRL, conjunctivae normal, anicteric sclerae Neck: trachea midline, no thyromegaly Respiratory: normal respiratory effort, lungs clear to auscultation Cardiovascular: RRR, no murmur, no edema Gastrointestinal (Abdomen): normal bowel sounds, soft, nontender, no hepatosplenomegaly Neurologic: + confused and + obtunded Psychiatric: Orientation: + not oriented x 3 Lymphatic: no cervical or axillary lymphadenopathy Results & Data Results & Data Vital Signs (Past 12 Hours) Vital Signs Temp Pulse Pulse Resp BP Pulse Ox O2 Del Method 09/13/24 20:40 36.7 C 80 16 120/84 97 Room Air 09/13/24 14:56 36.6 C 81 18 119/73 96 Room Air PG Care Time/CCT Total # of Minutes Spent Total Time Spent with Patient: Total time spent is greater than 50% in coordination of care (as documented) at patient's floor/unit and/or counseling patient: Coding Level of Care Code 84547 SUB INP/OBS CARE 3/50MIN Diagnoses Back pain M54.9 Dementia F03.90 Dementia behavioral or psychological symptom: unspecified whether behavioral, psychotic, or mood disturbance or anxiety Dementia severity: unspecified severity Dementia type: unspecified type Hypertension I10 Dyslipidemia E78.5 BPH (benign prostatic hyperplasia) N40.0 (2) Dementia Dementia behavioral or psychological symptom: unspecified whether behavioral, psychotic, or mood disturbance or anxiety Dementia severity: unspecified severity Dementia type: unspecified type Qualified Code(s): F03.90 - Unspecified dementia, unspecified severity, without behavioral disturbance, psychotic disturbance, mood disturbance, and anxiety
[2024-09-14 07:09] LABS: Hematocrit (blood only) 32.8 % (42.0-52.0); Hemoglobin 11.1 g/dl (14.0-18.0); Mean Corpuscular Hemoglobin 30.8 pg (25.0-34.0); Mean Corpuscular Hgb Conc 33.8 g/dL (32.0-36.0); Mean Corpuscular Volume 91.1 fL (80.0-100.0); Mean Platelet Volume 8.9 fL (9.4-12.4); Platelet Count 214 K/uL (130-400); RDW Coefficient of Variation 13.2 % (11.5-14.5); RDW Standard Deviation 43.9 fL (36.4-46.3); White Blood Count 8.14 K/ul (4.8-10.8)
[2024-09-14 07:30] LABS: BUN Creatinine Ratio 21.9 (10-20); C Reactive Protein 7.22 mg/dl (0-0.5); Calcium 8.4 mg/dl (8.6-10.3); Potassium 3.7 mmol/L (3.5-5.1)
[2024-09-14] MEDS: VANCOMYCIN HCL 125 MG/2.5ML SOLN PO SCH (08:25)
[2024-09-14] MEDS: CHERRY SYRUP 5 ML UDP PO SCH (08:25)
--- NOTE | 2024-09-14 15:07 | XCELERA ---
[id number]
--- NOTE | 2024-09-14 18:24 | Infectious Disease Progress Nt ---
Date of Service September 14, 2024 Assessment & Plan (1) Gram-positive bacteremia: (2) Back pain: (3) Leukocytosis: (4) Recurrent Clostridioides difficile diarrhea: Plan ID Problem List: #E. faecium bacteremia #Back pain, T12-L1 findings on 09/12 CT c/f discitis/osteomyelitis #History of aortic valve replacement and proximal aorta repair 2013 #History of C. diff #Chronic indwelling Martinez in place Impression: Keith Lopez is an 82yo M and resident of [facility] with h/o prior CVA, dementia, seizure, chronic indwelling martinez, recurrent UTIs, paroxysmal atrial tachycardia, bicuspid valve s/p aortic valve replacement/proximal aortic aneurysm repair 2013, left hip replacement in 2022, HTN, prior C. diff infection 07/2023 with recurrence 08/2023, who presented to [facility] on 09/12/24 with back pain, found to have 4/6 BCx + GPCs in chains. L-spine CT c/f T12-L1 infection. ID is consulted for GPC bacteremia. The patient presented with back pain and progressive weakness of the BLE over the last few weeks. Pts family noticed him grimacing during transfers. No reported fevers. The patient has a history of aortic valve replacement/proximal aortic aneurysm repair and L hip replacement. Upon arrival to ED, afebrile, WBC 11.79 ESR 53 CRP 10.34. UA (Martinez) with >50 WBCs, 6-10 RBCs, UCx growing Klebsiella variicola. 4/6 BCx growing GPCs in chains in 2 of 2 sets. /6 CT A/P showing moderate air-fluid distended rectum. 4/[address] with lucencies of endplates of T12-L1 c/f fractures though with associated paraspinal soft tissue edema c/f infection. Ortho was consulted, and felt that the CT could show minor endplate fractures, but recommended MRI for further evaluation. Awaiting spine MRI. The patient follows with outpatient ID, previously for C. diff and continues to follow for recurrent UTIs. The most recent ID clinic note from 07/07/24 is scanned into his chart, reporting that pt has poor Martinez care and often with blood at the urethral meatus, or Martinez tubing not secured to his leg. He has had multiple UTIs reported and treated at [facility], diagnosed due to weakness and confusion. The patients reports that due to poor appetite and weakness, he has lost 25 lbs over the last 3 months. Discussion Pt with high-grade (4/4 bottles) E. faecium bacteremia, and also with suspected spinal infection based on CT scan; awaiting MRI and further recs from orthopedic surgery. Note pt with aortic valve replacement and proximal aorta repair, as well as L hip replacement. In the setting of bacteremia, the back pain and CT findings are highly c/f discitis/osteomyelitis awaiting MRI for further evaluation. 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 09/14 TTE showed hyperdynamic LV, asymmetric hypertrophy of anteroseptum; bioprosthetic valve not well-visualized, elevated transvalvular velocity and gradient (increased from prior in 04/2024); technically poor study. Recommend MOIZ given pt with aortic valve replacement and proximal aorta repair. Would repeat BCx daily until clear x48h. Would continue to monitor closely for any new/worsening focal complaints (e.g., joint pain, back pain) with low threshold to image/evaluate as possible metastatic infection. Can continue IV daptomycin for coverage of E. faecium while awaiting sensis. Some data suggest that synergy with ampicillin (at 1g IV q6h dosing) can provide benefit for E. faecium. Note UCx + Klebsiella variicola. Pt with chronic Martinez. Low suspicion for UTI at this time given E. faecium as likely source, can hold cefepime and monitor closely. Note pt with prior history of C. diff and recurrence ~1 year prior. Given likelihood of long-term systemic abx, will start secondary ppx for now with once-daily PO vancomycin. Recommendations: - Continue IV daptomycin (increase to 10 mg/kg given E. faecium) for now, awaiting susceptibilities - Start ampicillin 1g IV q6h (lower dose for synergy with daptomycin; if Enterococcus is amp-sensitive then will increase dose and add ceftriaxone instead) - Continue vancomycin 125 mg PO daily for secondary ppx given h/o recurrent C. diff - Recommend MOIZ given abnormal MOIZ with h/o aortic valve repair and E. faecium bacteremia - Appreciate orthopedic surgery recommendations - F/u 09/12 BCx E. faecium sensis - Repeat BCx daily until clear x48h. Repeat BCx ordered for 09/13 and 09/14 - Continue to monitor closely for any new/worsening focal complaints (e.g., joint pain, back pain) with low threshold to image/evaluate as possible metastatic infection ID will continue to follow. Jamaica Noriega MD, MHS Infectious Diseases [facility]/ID Connect ID Connect direct line: [phone] Admission and Anticipated Discharge Date Admission Date: September 12, 2024 Subjective Subsequent visit was provided via telemedicine using two-way real-time interactive telecommunication between the patient and the telemedicine provider. For the duration of the visit, the provider was performing the assessment from a different facility than the patient. This includesuse of bluetooth stethoscope forauscultationperformed by the telepresenter that the telemedicine provider can hear if described in the physical exam. Kennel Operator contact information: Please call ID Connect Call Center . (Phone Number For Physician Use Only) After establishing a telemedicine visit, patient was: Patient was verified with two unique identifiers, Patient/authorized rep acknowledged consent and understanding and Gave permission to continue telehealth session Time Spent with Patient: Subsequent => 55 min - Afebrile, WBC 8.14 - 09/14 TTE showed hyperdynamic LV, asymmetric hypertrophy of anteroseptum; bioprosthetic valve not well-visualized, elevated transvalvular velocity and gradient (increased from prior in 04/2024); technically poor study. Physical Exam Physical Exam: Exam obtained with aid of in-person telepresenter. General: Well-appearing, no acute distress Resp: Respirations nonlabored. Abd: Soft, nontender, nondistended. Normal bowel sounds throughout. No masses or organomegaly. Back: No tenderness to palpation along spine Ext: R hip appears to elicit tenderness with flexion. L hip (site of L hip replacement) without tenderness or erythema, appears to flex without grimace. Skin: No rashes or lesions. Neuro: Asleep, severe cognitive impairment. Psych: Pleasant, appropriate. Results & Data Vital Signs (Past 12 Hours) Vital Signs Temp Pulse Resp BP Pulse Ox O2 Del Method 09/14/24 06:57 36.7 C 83 18 153/91 H 96 Room Air
[2024-09-14] MEDS: AMPICILLIN 1,000 MG in SODIUM CHLOR 0.9% MINI-B 100 ML IV SCH (19:44)
--- NOTE | 2024-09-14 22:47 | Hospitalist Progress Note ---
Date of Service September 14, 2024 Assessment & Plan (1) Back pain: Plan: Patient admitted with back pain. CT scan showed possible fracture of T12 and L1 Now with bacteremia. Cultures showing Enterococcus faecium VRE. source may be endocarditis as patient has had bovine aortic valve transplant vs osteomylities of T12 and L1. will consult ID. will need MRI to confirm fracture vs infection. However due to recent cardiovascular surgery on aorta, will need to get records to ensure the safety of the patient. Still have not received them from [facility]. will continue on empiric antibiotics and appreciate ortho spine input. Renal function remains stable. (2) Dementia: Plan: Patient with dementia. Family would like to be called if patient becomes agitated as sedating meds worsen his confusion. (3) Hypertension: Plan: resume home meds (4) Dyslipidemia: Plan: not on statins (5) BPH (benign prostatic hyperplasia): Plan: patient is voiding. Admission and Anticipated Discharge Date Admission Date: September 12, 2024 Subjective Mr. Parker is a poor historian given his dementia. His is at bedside. Physical Exam Constitutional: WD/WN, vitals as above Eyes: PERRL, conjunctivae normal, anicteric sclerae Neck: trachea midline, no thyromegaly Respiratory: normal respiratory effort, lungs clear to auscultation Cardiovascular: RRR, no murmur, no edema Gastrointestinal (Abdomen): normal bowel sounds, soft, nontender, no hepatosplenomegaly Neurologic: + confused and + obtunded Psychiatric: Orientation: + not oriented x 3 Lymphatic: no cervical or axillary lymphadenopathy Results & Data Results & Data Vital Signs (Past 12 Hours) Vital Signs Temp Pulse Resp BP Pulse Ox O2 Del Method 09/14/24 20:50 36.7 C 85 16 118/75 95 Room Air PG Care Time/CCT Total # of Minutes Spent Total Time Spent with Patient: Total time spent is greater than 50% in coordination of care (as documented) at patient's floor/unit and/or counseling patient: Coding Level of Care Code 72575 SUB INP/OBS CARE 3/50MIN Diagnoses Back pain M54.9 Dementia F03.90 Dementia behavioral or psychological symptom: unspecified whether behavioral, psychotic, or mood disturbance or anxiety Dementia severity: unspecified severity Dementia type: unspecified type Hypertension I10 Dyslipidemia E78.5 BPH (benign prostatic hyperplasia) N40.0 (2) Dementia Dementia behavioral or psychological symptom: unspecified whether behavioral, psychotic, or mood disturbance or anxiety Dementia severity: unspecified severity Dementia type: unspecified type Qualified Code(s): F03.90 [facility], unspecified severity, without behavioral disturbance, psychotic disturbance, mood disturbance, and anxiety
[2024-09-15 06:16] LABS: Hematocrit (blood only) 35.6 % (42.0-52.0); Hemoglobin 12.1 g/dl (14.0-18.0); Mean Corpuscular Hemoglobin 31.2 pg (25.0-34.0); Mean Corpuscular Volume 91.8 fL (80.0-100.0); Mean Platelet Volume 9.2 fL (9.4-12.4); Platelet Count 243 K/uL (130-400); RDW Coefficient of Variation 13.2 % (11.5-14.5); RDW Standard Deviation 44.9 fL (36.4-46.3); Red Blood Count 3.88 M/uL (4.70-6.10); White Blood Count 8.83 K/ul (4.8-10.8)
[2024-09-15 06:39] LABS: BUN Creatinine Ratio 22.4 (10-20); C Reactive Protein 5.08 mg/dl (0-0.5); Calcium 8.5 mg/dl (8.6-10.3); Creatinine Clr Calc Pharmacy 81.8 ml/min; Potassium 3.9 mmol/L (3.5-5.1)
--- NOTE | 2024-09-15 11:28 | Advance Care Plan Prog Note ---
Advanced Care Planning Note Date of Discussion September 14, 2024 ACP Discussion Diagnoses requiring ACP discussion: [*] A [id number] discussion with the [*] regarding the patient's advanced care planning took place during this hospitalization on the above date. The discussion included the explanation and discussion of advance directives and associated forms/documents, as well as the patient's current code status. We also discussed at length the patient's medical conditions (both acute and chronic), general prognosis, treatment options, and goals of care. The following summarizes the discussion: [ Patient has severe dementia which has affected his quality of life. He has suffered from dementia for years and sadly this has progressively worsened. He is at the point that patient is unable to care for himself at home and requires to live at a secured memory unit. His explains that over time his dementia has worsened at an accelerating pace once he was moved to a secure memory unit as he does not eat as well, needs reminded to swallow and has lost weight. She has been feeding him here and agrees he needs to be reminded to swallow. He also needs assistance to get out of bed. Given his advanced age and severe dementia in the setting of bacteremia, a goals of care discussion was had with his . When asked what would he want to be done in this setting, pursue treatment vs to focus on comfort care. She responded they never really had this conversation and honestly does not know what he would respond. For the meantime, she would like the patient to continue pursuing treatment of his infection and is awaiting further information from the MRI.*] Status Resuscitation Status DNR/DNI No Resuscitation Total Time I spent a total of [*] minutes was spent on this discussion, including counseling, answering questions, and completing, if any, pertinent advanced care planning forms/documents.
--- NOTE | 2024-09-15 12:27 | Infectious Disease Progress Nt ---
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 faecium bacteremia #Back pain, T12-L1 findings on 09/12 CT c/f discitis/osteomyelitis #History of aortic valve replacement and proximal aorta repair 2013 #History of C. diff #Chronic indwelling Martinez in place Impression: Keith Lopez is an 82yo M and resident of [facility] with h/o prior CVA, dementia, seizure, chronic indwelling martinez, recurrent UTIs, paroxysmal atrial tachycardia, bicuspid valve s/p aortic valve replacement/proximal aortic aneurysm repair 2013, left hip replacement in 2022, HTN, prior C. diff infection 07/2023 with recurrence 08/2023, who presented to [facility] on 09/12/24 with back pain, found to have 4/6 BCx + GPCs in chains. L-spine CT c/f T12-L1 infection. ID is consulted for GPC bacteremia. The patient presented with back pain and progressive weakness of the BLE over the last few weeks. Pts family noticed him grimacing during transfers. No reported fevers. The patient has a history of aortic valve replacement/proximal aortic aneurysm repair and L hip replacement. Upon arrival to ED, afebrile, WBC 11.79 ESR 53 CRP 10.34. UA (Martinez) with >50 WBCs, 6-10 RBCs, UCx growing Klebsiella variicola. 4/6 BCx growing GPCs in chains in 2 of 2 sets. 4/6 CT A/P showing moderate air-fluid distended rectum. 4/[address] with lucencies of endplates of T12-L1 c/f fractures though with associated paraspinal soft tissue edema c/f infection. Ortho was consulted, and felt that the CT could show minor endplate fractures, but recommended MRI for further evaluation. Awaiting spine MRI. The patient follows with outpatient ID, previously for C. diff and continues to follow for recurrent UTIs. The most recent ID clinic note from 07/07/24 is scanned into his chart, reporting that pt has poor Martinez care and often with blood at the urethral meatus, or Martinez tubing not secured to his leg. He has had multiple UTIs reported and treated at [facility], diagnosed due to weakness and confusion. The patients reports that due to poor appetite and weakness, he has lost 25 lbs over the last 3 months. Discussion Pt with high-grade (4/ bottles) VRE. faecium bacteremia. First bacteremic on 09/12, remains bacteremic on 09/14. Repeat BCx from 09/15 pending. With suspected spinal infection based on CT scan. Note pt with aortic valve replacement and proximal aorta repair, as well as L hip replacement. In the setting of bacteremia, the back pain and CT findings are highly c/f discitis/osteomyelitis awaiting MRI for further evaluation. 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 09/14 TTE showed hyperdynamic LV, asymmetric hypertrophy of anteroseptum; bioprosthetic valve not well-visualized, elevated transvalvular velocity and gradient (increased from prior in 04/2024); technically poor study. Recommend MOIZ given pt with aortic valve replacement and proximal aorta repair. Would repeat BCx daily until clear x48h. Would continue to monitor closely for any new/worsening focal complaints (e.g., joint pain, back pain) with low threshold to image/evaluate as possible metastatic infection. Can continue IV daptomycin for coverage of VRE. faecium. The VRE is R-amp. Data suggestive of synergy with daptomycin + ampicillin for VRE, thus have added ampicillin as well (https://pmc.ncbi.nlm.nih.gov/articles/QUB4855174/). Note the pts advanced dementia and frailty, thus concern that he would be a poor surgical candidate and have a poor prognosis. GOC discussions ongoing. Note UCx + Klebsiella variicola. Pt with chronic Martinez. Low suspicion for UTI at this time given VRE. faecium as likely source, have held cefepime and continue to monitor closely. Note pt with prior history of C. diff and recurrence ~1 year prior. Given likelihood of long-term systemic abx, would continue secondary ppx with once- daily PO vancomycin. Recommendations: - Continue IV daptomycin (increase to 12 mg/kg given VRE. faecium) - Continue ampicillin 2g IV q4h (for synergy with daptomycin) - Continue vancomycin 125 mg PO daily for secondary ppx given h/o recurrent C. diff. Anticipate continuing while on broad-spectrum antibiotics and continue for one week after stopping abx - If aligned with GOC, recommend MOIZ given abnormal TTE with h/o aortic valve repair and VRE bacteremia - F/u spine MRI. Appreciate orthopedic surgery recommendations - Repeat BCx daily until clear x48h. Repeat BCx last ordered for 09/15 - Continue to monitor closely for any new/worsening focal complaints (e.g., joint pain, back pain) with low threshold to image/evaluate as possible metastatic infection ID will continue to follow. Jamaica Noriega MD, [facility] Infectious Diseases [facility]/ID Connect ID Connect direct line: [phone] Admission and Anticipated Discharge Date Admission Date: September 12, 2024 Subjective This patient recommendation is based on a telemedicine consult request which was completed asynchronously through chart review and information provided by the primary physician. The patient was not seen or examined today. The evaluation is consultative in nature and all patient care and treatment decisions can either be accepted or rejected by the patient's primary hospital-based treating physician using their own independent medical judgment for their patient. Time Spent Reviewing Chart: 31+ minutes - Afebrile, WBC 8.83 Results & Data Vital Signs (Past 12 Hours) Vital Signs Temp Pulse Resp BP Pulse Ox O2 Del Method 09/15/24 07:40 36.4 C L 93 H 16 140/98 98 Room Air Diagnostic Findings Diagnostics: 09/14 TTE Hyperdynamic LV, asymmetric hypertrophy of anteroseptum; bioprosthetic valve not well-visualized, elevated transvalvular velocity and gradient (increased from prior in 04/2024); technically poor study. 09/12 L-spine CT Linear lucencies involving the apposed vertebral body endplates of T12 and L1 which may represent acute atypical nondisplaced fractures. Detail is limiting with diffuse mineralization. Associated paraspinal soft tissue edema. Infectious process cannot be excluded although not favored. Recommend MR if not contraindicated. Neurosurgical consult should be considered. 09/12 CT A/P 1. Featureless sigmoid colon with at least moderate air-fluid distended rectum of uncertain etiology. No discrete mass or mechanical obstruction. Inflammatory or infectious process must be considered. Correlate with clinical data. 2. Appendix not identified. No discrete findings to indicate acute appendiceal disease. 3. Likely benign renal cyst. Ultrasound would be helpful for further characterization if indicated. 4. Decompressed urinary bladder with Martinez catheter in place. Question urinary bladder stones. 5. Linear lucencies involving the apposed vertebral body endplates of T12 and L1 which may represent atypical nondisplaced fractures. Infectious or inflammatory process cannot be excluded. MRI would be helpful for further characterization. Please see above for details. Micro Data: 09/15 BCx x2: PEND 09/14 BCx x1: GPCs in chains (2/2 bottles) 09/13 BCx x2: VRE faecium in 2 of 2 sets (4/4 bottles) 09/12 BCx x2: VRE faecium (R-amp; S-linezolid/gent/dapto) in 2 of 2 sets (/ jessika les) 09/12 UCx straight cath: Klebsiella variicola prior micro 08/06/24 UCx: MRSA, Pseudomonas aeruginosa Antibiotic Summary: ampicillin (09/14 present) daptomycin (09/12 present) cefepime (09/12 09/13)
--- NOTE | 2024-09-15 12:27 | Orthopedic Progress Note ---
Date of Service September 15, 2024 Subjective Patient seen and examined, also had conversation with the nurse taking care of the patient. Currently the information has not been obtained from the [facility] regarding status of prior cardiac procedures relative to obtaining a lumbar MRI. According to the caregiver, the patient still exhibits some limited symptomatology when doing transitions otherwise no other changes. Exam today reveals no significant amount of pain to palpation of the lumbar spine, motor exam in the lower extremities is unobtainable. Impression: CT scan imaging on admission revealing potential evidence of inferior endplate compression fracture at T12 and superior endplate compression fracture of L1, CT scan interpretation suggesting possible discitis but patient does not have an elevated white count, septicemia is noted. Plan: At this time we will wait the information regarding the potential MRI, this sulma provide additional information regarding the spine findings, continue present care. Review of Systems All systems reviewed & are unremarkable except as noted in HPI & below. Physical Exam . Results & Data Results & Data Laboratory Results . Diagnostic Findings . PG Care Time/CCT Total # of Minutes Spent Total Time Spent with Patient: Total time spent is greater than 50% in coordination of care (as documented) at patient's floor/unit and/or counseling patient: Coding Level of Care Code 95324 SUB INP/OBS CARE 2/35MIN
[2024-09-15] MEDS ORDERED: DAPTOmycin 700 MG in SYRINGE 0 ML IV SCH (13:30)
[2024-09-15] MEDS: DAPTOmycin 850 MG in SYRINGE 0 ML IV SCH (14:31)
[2024-09-15] MEDS ORDERED: AMPICILLIN 2,000 MG in SODIUM CHLOR 0.9% MINI-B 100 ML IV SCH (15:01)
[2024-09-15] MEDS: CEFTAROLINE FOSAMIL ACETATE 600 MG in SODIUM CHLORIDE 0.9% 250 ML IV SCH (16:56)
--- NOTE | 2024-09-15 21:20 | Hospitalist Progress Note ---
Date of Service September 15, 2024 Assessment & Plan (1) Back pain: Plan: Patient admitted with back pain. CT scan showed possible fracture of T12 and L1 Now with bacteremia. Cultures showing Enterococcus faecium VRE. source may be endocarditis as patient has had bovine aortic valve transplant vs osteomylities of T12 and L1 given images showed above.. will consult ID. will need MRI to confirm fracture vs infection. However due to recent cardiovascular surgery on aorta, will need to get records to ensure the safety of the patient in MRI [facility]. Still have not received them from [facility]. will continue on antibiotics : ceftaroline, ampicillin, daptomycin and appreciate ortho spine input. Renal function remains stable. (2) Dementia: Plan: Patient with dementia. Family would like to be called if patient becomes agitated as sedating meds worsen his confusion. (3) Hypertension: Plan: resume home meds (4) Dyslipidemia: Plan: not on statins (5) BPH (benign prostatic hyperplasia): Plan: patient is voiding. Admission and Anticipated Discharge Date Admission Date: September 12, 2024 Subjective 83 yo male resting comfortably. Updated family at bedside. Physical Exam Constitutional: WD/WN, vitals as above Eyes: PERRL, conjunctivae normal, anicteric sclerae Neck: trachea midline, no thyromegaly Respiratory: normal respiratory effort, lungs clear to auscultation Cardiovascular: RRR, no murmur, no edema Gastrointestinal (Abdomen): normal bowel sounds, soft, nontender, no hepatosplenomegaly Neurologic: + confused and + obtunded Psychiatric: Orientation: + not oriented x 3 Lymphatic: no cervical or axillary lymphadenopathy Results & Data Results & Data Vital Signs (Past 12 Hours) Vital Signs Temp Pulse Resp BP Pulse Ox O2 Del Method 09/15/24 19:36 36.8 C 88 18 131/82 97 Room Air 09/15/24 15:00 36.7 C 91 H 16 121/86 97 Room Air PG Care Time/CCT Total # of Minutes Spent Total Time Spent with Patient: Total time spent is greater than 50% in coordination of care (as documented) at patient's floor/unit and/or counseling patient: Coding Level of Care Code 03696 SUB INP/OBS CARE 3/50MIN Diagnoses Back pain M54.9 Dementia F03.90 Dementia behavioral or psychological symptom: unspecified whether behavioral, psychotic, or mood disturbance or anxiety Dementia severity: unspecified severity Dementia type: unspecified type Hypertension I10 Dyslipidemia E78.5 BPH (benign prostatic hyperplasia) N40.0 Time Spent (min) 50 (2) Dementia Dementia behavioral or psychological symptom: unspecified whether behavioral, psychotic, or mood disturbance or anxiety Dementia severity: unspecified severity Dementia type: unspecified type Qualified Code(s): F03.90 - Unspecified dementia, unspecified severity, without behavioral disturbance, psychotic disturbance, mood disturbance, and anxiety
[2024-09-16 07:45] LABS: Creatinine Clr Calc Pharmacy 80.6 ml/min
[2024-09-16 09:34] LABS: BUN Creatinine Ratio 23.5 (10-20); Calcium 8.3 mg/dl (8.6-10.3); Potassium 3.9 mmol/L (3.5-5.1)
[2024-09-16 10:21] LABS: Basophils # (auto) 0.06 K/uL (0.00-0.20); Basophils % (auto) 0.7 %; Eosinophils # (auto) 0.55 K/uL (0.00-0.50); Eosinophils % (auto) 6.7 %; Hematocrit (blood only) 34.5 % (42.0-52.0); Hemoglobin 11.6 g/dl (14.0-18.0); Immature Granulocytes # (auto) 0.05 K/uL (0.01-0.20); Immature Granulocytes % (auto) 0.6 %; Lymphocytes # (auto) 1.94 K/uL (1.20-3.40); Lymphocytes % (auto) 23.5 %; Mean Corpuscular Hemoglobin 30.9 pg (25.0-34.0); Mean Corpuscular Hgb Conc 33.6 g/dL (32.0-36.0); Mean Corpuscular Volume 91.8 fL (80.0-100.0); Mean Platelet Volume 9.6 fL (9.4-12.4); Monocytes # (auto) 0.72 K/uL (0.11-0.59); Monocytes % (auto) 8.7 %; Neutrophils # (auto) 4.95 K/uL (1.40-6.50); Neutrophils % (auto) 59.8 %; Platelet Count 239 K/uL (130-400); RDW Coefficient of Variation 13.2 % (11.5-14.5); RDW Standard Deviation 44.5 fL (36.4-46.3); Red Blood Count 3.76 M/uL (4.70-6.10); White Blood Count 8.27 K/ul (4.8-10.8)
--- NOTE | 2024-09-16 10:39 | Infectious Disease Progress Nt ---
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 faecium bacteremia #Back pain, T12-L1 findings on 09/12 CT c/f discitis/osteomyelitis #History of aortic valve replacement and proximal aorta repair 2013 #History of C. diff #Chronic indwelling Martinez in place Impression: Keith Lopez is an 82yo M and resident of [facility] with h/o prior CVA, dementia, seizure, chronic indwelling martinez, recurrent UTIs, paroxysmal atrial tachycardia, bicuspid valve s/p aortic valve replacement/proximal aortic aneurysm repair 2013, left hip replacement in 2022, HTN, prior C. diff infection 07/2023 with recurrence 08/2023, who presented to [facility] on 09/12/24 with back pain, found to have 4/6 BCx + GPCs in chains. L-spine CT c/f T12-L1 infection. ID is consulted for GPC bacteremia. The patient presented with back pain and progressive weakness of the BLE over the last few weeks. Pts family noticed him grimacing during transfers. No reported fevers. The patient has a history of aortic valve replacement/proximal aortic aneurysm repair and L hip replacement. Upon arrival to ED, afebrile, WBC 11.79 ESR 53 CRP 10.34. UA (Martinez) with >50 WBCs, 6-10 RBCs, UCx growing Klebsiella variicola. 4/6 BCx growing GPCs in chains in 2 of 2 sets. 4/6 CT A/P showing moderate air-fluid distended rectum. 4/[address] with lucencies of endplates of T12-L1 c/f fractures though with associated paraspinal soft tissue edema c/f infection. Ortho was consulted, and felt that the CT could show minor endplate fractures, but recommended MRI for further evaluation. Awaiting spine MRI. The patient follows with outpatient ID, previously for C. diff and continues to follow for recurrent UTIs. The most recent ID clinic note from 07/07/24 is scanned into his chart, reporting that pt has poor Martinez care and often with blood at the urethral meatus, or Martinez tubing not secured to his leg. He has had multiple UTIs reported and treated at [facility], diagnosed due to weakness and confusion. The patients reports that due to poor appetite and weakness, he has lost 25 lbs over the last 3 months. Discussion Pt with high-grade (4/ bottles) VRE. faecium bacteremia. First bacteremic on 09/12, remains bacteremic on 09/13 and 09/14. Repeat BCx from 09/15 thus far NGTD. With suspected spinal infection based on CT scan. Note pt with aortic valve replacement and proximal aorta repair, as well as L hip replacement. In the setting of bacteremia, the back pain and CT findings are highly c/f discitis/osteomyelitis awaiting MRI for further evaluation. 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 09/14 TTE showed hyperdynamic LV, asymmetric hypertrophy of anteroseptum; bioprosthetic valve not well-visualized, elevated transvalvular velocity and gra dient (increased from prior in 04/2024); technically poor study. If within GOC, recommend MOIZ given pt with aortic valve replacement and proximal aorta repair. Would continue to monitor closely for any new/worsening focal complaints (e.g., joint pain, back pain) with low threshold to image/evaluate as possible metastatic infection. Can continue daptomycin for coverage of VRE. faecium. The VRE is R-amp and the daptomycin MARTA is 4. Will do high-dose daptomycin if patient is tolerating. Data suggestive of synergy with daptomycin and beta-lactams. Given the pts high- grade bacteremia and multiple potential sites of infection including PVE, have started ceftaroline as a second agent. Anticipate at least a 6-week course of daptomycin. Will likely continue ceftaroline for 1 week past BCx clearance; may consider changing to another synergy agent (e.g., amp, ceftriaxone, or ertapenem) afterwards. Note the pts advanced dementia and frailty, thus concern that he would be a poor surgical candidate and have a poor prognosis. GOC discussions ongoing. Note pt with prior history of C. diff and recurrence ~1 year prior. Given plan for long-term systemic abx, would continue secondary ppx with once-daily PO vancomycin. Note UCx + Klebsiella variicola. Pt with chronic Martinez. Low suspicion for UTI at this time given VRE. faecium as likely source, have held cefepime and continue to monitor closely. Recommendations: - Continue daptomycin 12 mg/kg (high dose given high MARTA and VRE. faecium) - Continue ceftaroline 600 mg IV q8h (for synergy with daptomycin) likely c ontinue until bacteremia clears and potentially for another week after - Continue vancomycin 125 mg PO daily for secondary ppx given h/o recurrent C. diff. Anticipate continuing while on broad-spectrum antibiotics and continue for one week after stopping abx - If aligned with GOC, recommend MOIZ given abnormal TTE with h/o aortic valve repair and VRE bacteremia - F/u spine MRI. Appreciate orthopedic surgery recommendations - Repeat BCx daily until clear x48h. Repeat BCx ordered for 09/15 and 09/16 - Continue to monitor closely for any new/worsening focal complaints (e.g., joint pain, back pain) with low threshold to image/evaluate as possible metastatic infection ID will continue to follow. Jamaica Noriega MD, MHS Infectious Diseases [facility]/ID Connect ID Connect direct line: [phone] Admission and Anticipated Discharge Date Admission Date: September 12, 2024 Subjective This patient recommendation is based on a telemedicine consult request which was completed asynchronously through chart review and information provided by the primary physician. The patient was not seen or examined today. The evaluation is consultative in nature and all patient care and treatment decisions can either be accepted or rejected by the patient's primary hospital-based treating physician using their own independent medical judgment for their patient. Time Spent Reviewing Chart: 31+ minutes PLEASE NOTE: E-consult was performed for this visit given technical issues on the telepresenter side. - Afebrile, WBC 8.27 Results & Data Vital Signs (Past 12 Hours) Vital Signs Temp Pulse Resp BP Pulse Ox O2 Del Method 09/16/24 09:00 36.9 C 83 16 154/90 H 97 Room Air Diagnostic Findings Diagnostics: 09/14 TTE Hyperdynamic LV, asymmetric hypertrophy of anteroseptum; bioprosthetic valve not well-visualized, elevated transvalvular velocity and gradient (increased from prior in 04/2024); technically poor study. 09/[address] L-sp[address] CT Linear lucencies involving the apposed vertebral body endplates of T12 and L1 which may represent acute atypical nondisplaced fractures. Detail is limiting with diffuse mineralization. Associated paraspinal soft tissue edema. Infectious process cannot be excluded although not favored. Recommend MR if not contraindicated. Neurosurgical consult should be considered. 09/12 CT A/P 1. Featureless sigmoid colon with at least moderate air-fluid distended rectum of uncertain etiology. No discrete mass or mechanical obstruction. Inflammatory or infectious process must be considered. Correlate with clinical data. 2. Appendix not identified. No discrete findings to indicate acute appendiceal disease. 3. Likely benign renal cyst. Ultrasound would be helpful for further characterization if indicated. 4. Decompressed urinary bladder with Martinez catheter in place. Question urinary bladder stones. 5. Linear lucencies involving the apposed vertebral body endplates of T12 and L1 which may represent atypical nondisplaced fractures. Infectious or inflammatory process cannot be excluded. MRI would be helpful for further characterization. Please see above for details. Micro Data: 09/16 BCx x2: PEND 09/15 BCx x2: NGTD 09/14 BCx x1: VRE faecium (2/2 bottles) 09/13 BCx x2: VRE faecium in 2 of 2 sets (4/4 bottles) 09/12 BCx x2: VRE faecium (R-amp; S-linezolid/gent/dapto) in 2 of 2 sets (4/4 bottles) 09/12 UCx straight cath: Klebsiella variicola prior micro 08/06/24 UCx: MRSA, Pseudomonas aeruginosa Antibiotic Summary: daptomycin (09/12 present) ceftaroline (09/15 present) prior ampicillin (09/14 09/15) cefepime (09/12 09/13) Abx Allergies: None ID Problem List: #VRE. faecium bacteremia #Back pain, T12-L1 findings on 09/12 CT c/f discitis/osteomyelitis #History of aortic valve replacement and proximal aorta repair 2013 #History of C. diff #Chronic indwelling Martinez in place
--- NOTE | 2024-09-16 12:51 | Hospitalist Progress Note ---
Date of Service September 16, 2024 Assessment & Plan (1) Lumbar stress fracture: (2) Osteomyelitis: (3) Bacteremia: (4) Endocarditis: Plan Keith Lopez is an 82yo M and resident of [facility] with h/o prior CVA, dementia, seizure, chronic indwelling martinez, recurrent UTIs, paroxysmal atrial tachycardia, bicuspid valve s/p aortic valve replacement/proximal aortic aneurysm repair 2013, left hip replacement in 2022, HTN, prior C. diff infection 07/2023 with recurrence 08/2023, who presented to [facility] on 09/12/24 with back pain, found to have 4/6 BCx + GPCs in chains. L-spine CT c/f T12-L1 infection. Lumbar stress fracture/osteomyelitis - CT lumbar spine: Linear lucencies in end plates of T12-L1 representing acute non-displaced fracture, soft tissue edema present that could correlate to discitis/osteomyelitis, or other bony infection - No leukocytosis, but Enterococcus VRE present in blood cultures - MRI lumbar spine pending as concern for imaging study given previous cardiac interventions, documents forwarded from [facility], will curbside radiology to review to determine if MRI feasible - Can potentially use bone scan to give less detailed but similar information on fracture vs infection compared to MRI - Continue pain management - Orthopedics onboard, will determine bracing/immobilization after further spine imaging Bacteremia/Endocarditis/UTI - Patient with hx of AVR and proximal aortic aneurysm repair - Patient with indwelling martinez catheter for approximately 2 years - Infection spread likely from GI proximity to bladder causing UTI, blood stream infection, and potential bone/heart infections - Infectious disease onboard: recommend Ceftaroline and Daptomycin IV antibiotics and oral Vancomycin C.diff ppx - Bcx positive for Enterococcus Faecium VRE and gram positive cocci in chains more recently - ID recommends daily blood cultures until negative for 48 hours and likely at least 6 weeks of IV abx therapy for potential endocarditis - TTE largely wnl however poor visualization of replacement aortic valve - Patient will defer MOIZ at this time as he is poor surgical candidate, poor outcomes with anesthesia, and evidence of vegetations will likely only lengthen abx duration Severe Dementia - Patient in memory unit at [facility] - Likely will require SNF capable of IV abx and significant rehab before transfer back - Per family, significant decline in condition, hx of fall, and 3 months with 25 pound weight loss Admission and Anticipated Discharge Date Admission Date: September 12, 2024 Supervising Physician Co-Signing Physician Notes I personally examined the patient and verified all brandon points of history and exam, discussed case, and agree with decision making with Dr Arce Signout from off going physician appreciated. Patient without meaningful HPI or review of systems. Discussed with resident physician as well as infectious disease. Extensive discussion with at the bedsideprobably at the bedside for approximately 45 minutes. She gave me the back story of the last several months, additionally we discussed about his current situation. I also reviewed years worth of old records in addition to the records sent from [facility] and scanned into the EMR. Vitals noted, in general he is awake but essentially nonverbal he makes eye contact but him not entirely sure if he is truly tracking, no distress. HEENT normocephalic atraumatic mucous membranes moist. Breathing unlabored no accessory muscle use good effort. Skin without rashes pallor or icterus. Neuro without focal deficits. Enterococcal bacteremia with concern on endocarditis and osteomyelitiswas able to locate what type of aortic valve he has, will need to discuss with cardiology or radiology to see if it is MRI compatible. At the same time, when I was discussing with the , while she has a bit of ambivalence on his goals of care, she was very clear that she would not want anything invasive such as a transesophageal echo doneand with that in mind, and in discussion with infect ious disease, the empiric treatment we would need to do for the potential for endocarditis with a prosthetic valve would likely exceed what we would need to do for osteomyelitis anyway. We also did discuss that if we needed to determine it and could not do an MRI, a bone scan could be helpful. As far as his overall goals of careright now his would like to see how he does with treatment, she understands that at the current time he would not have his needs met at a personal care level, and would really need SNF. When we discussed that unfortunately with his overall decline/dementia, in addition to his acute infection that this would likely be a permanent move, she expressed both an understanding of this, and a desire to keep his room at personal-care with the hope that he might improve and be able to go back to this. Ongoing supportive care for her and the family as well. Arcelia Parker First was seen this morning resting comfortably. Patient's plan and hospital course is discussed with daughter and present at bedside. Major topics discussed included patients lumbar fracture and potential bone infection, endocarditis, and bacteremia. Family understands that patient is a poor surgical candidate and that he will likely need an extended course of antibiotics for his bacteremia and endocarditis/osteomyelitis sequelae. Family reports on that patient does have severe dementia at baseline and typically is able to follow basic commands and is only alert and oriented to his name. Family also notes around 25 pounds of weight loss in the past 3 months and almost 10 pounds of this in the past few weeks. Patient is afebrile and hemodynamically stable. Physical Exam Physical Exam: General: patient resting comfortably, NAD, non-toxic in appearance, sleeping Skin: warm, dry, intact HEENT: NC/AT, anicteric sclera, conjunctiva without injection, moist mucus membranes. Heart: +S1/S2, regular, no m/r/g Lungs: equal air entry bilaterally, no rales/rhonchi/wheezes Abd: +BS, soft, NT/ND Ext: warm, no clubbing/cyanosis or edema Neuro: nonfocal, speech intact, no facial droop, moving all extremities. Results & Data Results & Data Vital Signs (Past 12 Hours) Vital Signs Temp Pulse Resp BP Pulse Ox O2 Del Method 09/16/24 09:00 36.9 C 83 16 154/90 H 97 Room Air Resident Activity Tracking Resident Involvement: Resident Care Provided Care Provided: Adult Hospital Medicine
--- NOTE | 2024-09-16 18:25 | Billing Data ---
Date of Service September 16, 2024 Coding Level of Care Code 70737 SUB INP/OBS CARE MIN
[2024-09-17 06:20] LABS: Basophils # (auto) 0.05 K/uL (0.00-0.20); Basophils % (auto) 0.6 %; Eosinophils # (auto) 0.56 K/uL (0.00-0.50); Eosinophils % (auto) 6.6 %; Hemoglobin 11.1 g/dl (14.0-18.0); Immature Granulocytes # (auto) 0.06 K/uL (0.01-0.20); Immature Granulocytes % (auto) 0.7 %; Lymphocytes # (auto) 2.05 K/uL (1.20-3.40); Lymphocytes % (auto) 24.3 %; Mean Corpuscular Hemoglobin 30.4 pg (25.0-34.0); Mean Corpuscular Hgb Conc 33.6 g/dL (32.0-36.0); Mean Corpuscular Volume 90.4 fL (80.0-100.0); Mean Platelet Volume 9.1 fL (9.4-12.4); Monocytes # (auto) 0.74 K/uL (0.11-0.59); Monocytes % (auto) 8.8 %; Neutrophils # (auto) 4.97 K/uL (1.40-6.50); Platelet Count 236 K/uL (130-400); RDW Coefficient of Variation 13.3 % (11.5-14.5); RDW Standard Deviation 43.9 fL (36.4-46.3); Red Blood Count 3.65 M/uL (4.70-6.10); White Blood Count 8.43 K/ul (4.8-10.8)
[2024-09-17 06:28] LABS: BUN Creatinine Ratio 21.7 (10-20); Calcium 8.3 mg/dl (8.6-10.3); Creatinine Clr Calc Pharmacy 79.4 ml/min
--- NOTE | 2024-09-17 14:24 | Infectious Disease Progress Nt ---
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 diff infection 07/2023 with recurrence 08/2023, who presented to [facility] on 09/12/24 with back pain, found to have 4/6 BCx + GPCs in chains. L-spine CT c/f T12-L1 infection. ID is consulted for GPC bacteremia. The patient presented with back pain and progressive weakness of the BLE over the last few weeks. Pts family noticed him grimacing during transfers. No reported fevers. The patient has a history of aortic valve replacement/proximal aortic aneurysm repair and L hip replacement. Upon arrival to ED, afebrile, WBC 11.79 ESR 53 CRP 10.34. UA (Martinez) with >50 WBCs, 6-10 RBCs, UCx growing Klebsiella variicola. 4/6 BCx growing GPCs in chains in 2 of 2 sets. /6 CT A/P showing moderate air-fluid distended rectum. 4/[address] with lucencies of endplates of T12-L1 c/f fractures though with associated paraspinal soft tissue edema c/f infection. Ortho was consulted, and felt that the CT could show minor endplate fractures, but recommended MRI for further evaluation. Awaiting spine MRI. The patient follows with outpatient ID, previously for C. diff and continues to follow for recurrent UTIs. The most recent ID clinic note from 07/07/24 is scanned into his chart, reporting that pt has poor Martinez care and often with blood at the urethral meatus, or Martinez tubing not secured to his leg. He has had multiple UTIs reported and treated at [facility], diagnosed due to weakness and confusion. The patients reports that due to poor appetite and weakness, he has lost 25 lbs over the last 3 months. Discussion Pt with high-grade (4/4 bottles) VRE. faecium bacteremia. First bacteremic on 09/12, remains bacteremic on 09/13 and 09/14. Repeat BCx from 09/15 thus far NGTD. With suspected spinal infection based on CT scan. Note pt with aortic valve replacement and proximal aorta repair, as well as L hip replacement. In the setting of bacteremia, the back pain and CT findings are highly c/f discitis/osteomyelitis awaiting MRI for further evaluation. 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 09/14 TTE showed hyperdynamic LV, asymmetric hypertrophy of anteroseptum; bioprosthetic valve not well-visualized, elevated transvalvular velocity and gradient (increased from prior in 04/2024); technically poor study. Initially recommended MOIZ given pt with aortic valve replacement and proximal aorta repair per patients , this is not within current GOC and would be OK with empiric IV abx treatment for possible PVE. Would continue to monitor closely for any new/worsening focal complaints (e.g., joint pain, back pain) with low threshold to image/evaluate as possible metastatic infection. Can continue daptomycin for coverage of VRE. faecium. The VRE is R-amp and the daptomycin MARTA is 4, therefore using high-dose daptomycin as long as patient tolerates this. Data suggestive of synergy with daptomycin and beta-lactams for treatment of VRE. Given the pts high-grade bacteremia and multiple potential sites of infection including PVE, have started ceftaroline as a second agent. Anticipate at least a 6-week course of daptomycin and possibly a second agent. Will likely continue ceftaroline for 1 week past BCx clearance; may consider changing to another synergy agent (e.g., amp, ceftriaxone, or ertapenem) afterwards. Note the pts advanced dementia and frailty, thus concern that he would be a poor surgical candidate and have a poor prognosis. GOC discussions ongoing. Note pt with prior history of C. diff and recurrence ~1 year prior. Given plan for long-term systemic abx, would continue secondary ppx with once-daily PO vancomycin. Note UCx + Klebsiella variicola. Pt with chronic Martinez. Low suspicion for UTI at this time given VRE. faecium as likely source, have held cefepime and continue to monitor closely. Recommendations: - Continue daptomycin 850 mg (12 mg/kg) IV q24h (high dose given high VRE. faecium with high daptomycin MARTA) - Continue ceftaroline 600 mg IV q8h (for synergy with daptomycin) likely continue until bacteremia clears and potentially for another week after; at that time may consider a change to a different agent for continued synergy - Continue vancomycin 125 mg PO daily for secondary ppx given h/o recurrent C. diff. Anticipate continuing while on broad-spectrum antibiotics and continue for one week after stopping abx - Discussing possible spine MRI, may hold off if it does not content management consultant - Per [facility], currently holding off on MOIZ in favor of empiric treatment of possible PVE - Repeat BCx daily until clear x48h. Repeat BCx ordered for 09/16 and 09/17 - Continue to monitor closely for any new/worsening focal complaints (e.g., joint pain, back pain) with low threshold to image/evaluate as possible metastatic infection ID will continue to follow, but does not monitor the chart or round over the weekend; covering physician can be contacted at [phone] ([facility][NOTE 3]onnect call center) for telephonic consultation if needed. Dr. Anaya Narvaez will resume care of the ID service on Friday. Jamaica Noriega MD, S Infectious Diseases [facility]/ID Connect ID Connect direct line: [phone] Admission and Anticipated Discharge Date Admission Date: September 12, 2024 Subjective PLEASE NOTE: E-consult was performed for this visit given that no telepresenter was available today. This patient recommendation is based on a telemedicine consult request which was completed asynchronously through chart review and information provided by the primary physician. The patient was not seen or examined today. The evaluation is consultative in nature and all patient care and treatment decisions can either be accepted or rejected by the patient's primary hospital-based treating physician using their own independent medical judgment for their patient. Time Spent Reviewing Chart: 31+ minutes - Afebrile, WBC 8.43 - 09/15 BCx now + VRE Results & Data Vital Signs (Past 12 Hours) Vital Signs Temp Pulse Resp BP Pulse Ox O2 Del Method 09/17/24 07:58 36.6 C 83 18 154/93 H 95 Room Air Diagnostic Findings Diagnostics: 09/14 TTE Hyperdynamic LV, asymmetric hypertrophy of anteroseptum; bioprosthetic valve not well-visualized, elevated transvalvular velocity and gradient (increased from prior in 04/2024); technically poor study. 09/12 L-spine CT Linear lucencies involving the apposed vertebral body endplates of T12 and L1 which may represent acute atypical nondisplaced fractures. Detail is limiting with diffuse mineralization. Associated paraspinal soft tissue edema. Infectious process cannot be excluded although not favored. Recommend MR if not contraindicated. Neurosurgical consult should be considered. 09/12 CT A/P 1. Featureless sigmoid colon with at least moderate air-fluid distended rectum of uncertain etiology. No discrete mass or mechanical obstruction. Inflammatory or infectious process must be considered. Correlate with clinical data. 2. Appendix not identified. No discrete findings to indicate acute appendiceal disease. 3. Likely benign renal cyst. Ultrasound would be helpful for further characterization if indicated. 4. Decompressed urinary bladder with Martinez catheter in place. Question urinary bladder stones. 5. Linear lucencies involving the apposed vertebral body endplates of T12 and L1 which may represent atypical nondisplaced fractures. Infectious or inflammatory process cannot be excluded. MRI would be helpful for further characterization. Please see above for details. Micro Data: 09/16 BCx x2: NGTD 09/15 BCx x2: VRE faecium (1/4 bottles) 09/14 BCx x1: VRE faecium (2/2 bottles) 09/13 BCx x2: VRE faecium in 2 of 2 sets (4/4 bottles) 09/12 BCx x2: VRE faecium (R-amp; S-linezolid/gent/dapto) in 2 of 2 sets (4/4 bottles) 09/12 UCx straight cath: Klebsiella variicola prior micro 08/06/24 UCx: MRSA, Pseudomonas aeruginosa Antibiotic Summary: daptomycin (09/12 present) ceftaroline (09/15 present) prior ampicillin (09/14 09/15) cefepime (09/12 09/13)
--- NOTE | 2024-09-17 15:09 | Hospitalist Progress Note ---
Date of Service September 17, 2024 Assessment & Plan (1) Lumbar stress fracture: (2) Osteomyelitis: (3) Bacteremia: (4) Endocarditis: Plan Keith Lopez is an 82yo M and resident of [facility] with h/o prior CVA, dementia, seizure, chronic indwelling martinez, recurrent UTIs, paroxysmal atrial tachycardia, bicuspid valve s/p aortic valve replacement/proximal aortic aneurysm repair 2013, left hip replacement in 2022, HTN, prior C. diff infection 07/2023 with recurrence 08/2023, who presented to [facility] on 09/12/24 with back pain, found to have 4/6 BCx + GPCs in chains. L-spine CT c/f T12-L1 infection. Lumbar stress fracture/osteomyelitis - CT lumbar spine: Linear lucencies in end plates of T12-L1 representing acute non-displaced fracture, soft tissue edema present that could correlate to discitis/osteomyelitis, or other bony infection - No leukocytosis, but Enterococcus VRE present in blood cultures - MRI lumbar spine pending as concern for imaging study given previous cardiac interventions, documents forwarded from [facility], will curbside radiology to review to determine if MRI feasible - Can potentially use bone scan to give less detailed but similar information on fracture vs infection compared to MRI - Continue pain management - Orthopedics onboard, will determine bracing/immobilization after further spine imaging Bacteremia/Endocarditis/UTI - Patient with hx of AVR and proximal aortic aneurysm repair - Patient with indwelling martinez catheter for approximately 2 years - Infection spread likely from GI proximity to bladder causing UTI, blood stream infection, and potential bone/heart infections - Infectious disease onboard: recommend Ceftaroline and Daptomycin IV antibiotics and oral Vancomycin C.diff ppx - Bcx positive for Enterococcus Faecium VRE and gram positive cocci in chains more recently - ID recommends daily blood cultures until negative for 48 hours and likely at least 6 weeks of IV abx therapy for potential endocarditis - TTE largely wnl however poor visualization of replacement aortic valve - Patient will defer MOIZ at this time as he is poor surgical candidate, poor outcomes with anesthesia, and evidence of vegetations will likely only lengthen abx duration Severe Dementia - Patient in memory unit at [facility] - Likely will require SNF capable of IV abx and significant rehab before transfer back - Per family, significant decline in condition, hx of fall, and 3 months with 25 pound weight loss Admission and Anticipated Discharge Date Admission Date: September 12, 2024 Supervising Physician Co-Signing Physician Notes I personally examined the patient and verified all brandon points of history and exam, discussed case, and agree with decision making with Dr Arce no meaningful HPI or review of systems obtainable from patient. No new problems noted. Updated (at the bedside) and daughter (on the phone with ) to the best of my ability and to their satisfaction. Vitals noted, in general he is awake but essentially nonverbal, no distress. HEENT normocephalic atraumatic mucous membranes moist. Breathing unlabored no accessory muscle use good effort. Skin without rashes pallor or icterus. Neuro without focal deficits. Enterococcal bacteremia with concern on endocarditis and osteomyelitis Anticipate 6 weeks of treatment for enterococcal bacteremia and suspected endocarditis, and likely chronic suppressive management thereafter given his prosthetic valve. Despite discussions that it would not really supervisor records change at all, and daughter were extremely concerned about the possibility of anything with MRI findings and given that it is a low risk diagnostic, it seems that they will feel much better about his situation if we image his lumbar spine. Discussed very clearly that it will not really change treatment duration given that we have to cover for suspected endocarditis anyway. They expressed gratitude for ordering the study. PT/OT eval and treat. Anticipate need for SNF. Subjective Patient resting comfortably this morning. Remains afebrile and hemodynamically stable. Utility of MRI lumbar spine discussed with patient's and daughter. Both understand low utility value as management and treatment will very likely not change with the study but would like to proceed with MRI. Physical Exam Physical Exam: General: patient resting comfortably, NAD, non-toxic in appearance, sleeping Skin: warm, dry, intact HEENT: NC/AT, anicteric sclera, conjunctiva without injection, moist mucus membranes. Heart: +S1/S2, regular, no m/r/g Lungs: equal air entry bilaterally, no rales/rhonchi/wheezes Abd: +BS, soft, NT/ND Ext: warm, no clubbing/cyanosis or edema Neuro: nonfocal, speech intact, no facial droop, moving all extremities. Results & Data Results & Data Vital Signs (Past 12 Hours) Vital Signs Temp Pulse Resp BP Pulse Ox O2 Del Method 09/17/24 14:53 36.9 C 87 15 128/84 96 Room Air 09/17/24 07:58 36.6 C 83 18 154/93 H 95 Room Air Resident Activity Tracking Resident Involvement: Resident Care Provided Care Provided: Adult Hospital Medicine
[2024-09-17] MEDS: GADOBUTROL 65ML VIAL IV ONE (17:46)
--- NOTE | 2024-09-17 18:21 | Billing Data ---
Date of Service September 17, 2024 Coding Level of Care Code 46588 SUB INP/OBS CARE MIN
--- NOTE | 2024-09-17 19:15 | Magnetic Resonance Report ---
MRI LUMBAR SPINE WITH and WITHOUT CONTRAST TECHNIQUE: An MRI examination of the cervical spine was performed. The examination consists of sagittal T1-weighted, inversion recovery and T2 weighted images as well as axial T1-weighted, T2-weighted and gradient echo images. Postcontrast T1-weighted images were also obtained in axial and sagittal planes. IV CONTRAST: 10 mL of Gadavist was intravenously administered. INDICATION: Back pain COMPARISON: Lumbar spine CT September 12, 2024. FINDINGS: There is abnormal enhancement and edema along the inferior endplate of T12 and the superior endplate of L1. The intervertebral disc space at T12-L1 also demonstrates abnormal enhancement edema signal. No epidural or subdural collection is identified. The conus terminates at L1. No significant vertebral body height loss. Grade 1 anterolisthesis of L5 on S1 with chronic pars defects. Mild retrolistheses of L1 on L2 and L2 on L3. There are multilevel degenerative changes of the lumbar spine as below: L1-2: Broad-based disc bulge, more eccentric the left, bilateral facet hypertrophy and thickening of the ligamentum flavum. These changes result in moderate to severe crowding of the left subarticular recess where the traversing nerve root appears to be impinged and severe narrowing of the left neural foramen. L2-3: Broad-based disc bulge, more eccentric the left, bilateral facet hypertrophy and thickening of the ligamentum flavum. These changes result in moderate to severe crowding of the left greater than right subarticular recesses where the traversing nerve roots appear to be impinged and severe narrowing of bilateral neural foramina. The left exiting nerve is impinged at the neural foramen. L3-4: Broad-based disc bulge, bilateral facet hypertrophy and thickening of the ligamentum flavum. These changes result in moderate crowding of the subarticular recesses. Moderate right and severe left neural foraminal narrowing. The left exiting nerve is impinged at the neural foramen. L4-5: Broad-based disc bulge, bilateral facet hypertrophy and thickening of the ligamentum flavum. These changes result in moderate crowding of the subarticular recesses. Severe right and moderate to severe left neural foraminal narrowing. The right exiting nerve is impinged at the neural foramen and the left neural foramen appears to be impinged extraforaminally. L5-S1: Broad-based disc bulge with uncovering of the disc, bilateral facet hypertrophy and thickening of the ligamentum flavum. These changes result in moderate crowding of the subarticular recesses. Moderate to severe bilateral rneural foraminal narrowing. The exiting nerve roots are impinged extraforaminally. IMPRESSION: Abnormal enhancement and edema signal involving the inferior endplate of T12 and superior endplate of L1 as well as the intervertebral disc space. This finding could suggest discitis osteomyelitis in a proper clinical context, though subacute fracture may yield similar appearance. No epidural or subdural collection is identified at this time. Electronically signed by Bull Trevino 09-17-2024 7:12 PM
[2024-09-18 07:26] LABS: Creatinine Clr Calc Pharmacy 85.6 ml/min
--- NOTE | 2024-09-18 08:42 | Hospitalist Progress Note ---
Date of Service September 18, 2024 Assessment & Plan (1) Lumbar stress fracture: (2) Osteomyelitis: (3) Bacteremia: (4) Endocarditis: Plan Keith Lopez is an 82yo M and resident of [facility] with h/o prior CVA, dementia, seizure, chronic indwelling martinez, recurrent UTIs, paroxysmal atrial tachycardia, bicuspid valve s/p aortic valve replacement/proximal aortic aneurysm repair 2013, left hip replacement in 2022, HTN, prior C. diff infection 07/2023 with recurrence 08/2023, who presented to [facility] on [facility]24 with back pain, found to have 4/6 BCx + GPCs in chains. L-spine CT c/f T12-L1 infection. Lumbar stress fracture/osteomyelitis - MRI ( 09/18 consistent with previous finding. Hard to tell whether # or an infection; given he's getting better with Antibiotics--infection is more plausible. - ID on board: appreciate recs. - CT lumbar spine: Linear lucencies in end plates of T12-L1 representing acute non-displaced fracture, soft tissue edema present that could correlate to discitis/osteomyelitis, or other bony infection - No leukocytosis, but Enterococcus VRE present in blood cultures - Continue pain management - Orthopedics onboard, will determine bracing/immobilization after further spine imaging Bacteremia/Endocarditis/UTI - Patient with hx of AVR and proximal aortic aneurysm repair - Patient with indwelling martinez catheter for approximately 2 years - Infection spread likely from GI proximity to bladder causing UTI, blood stream infection, and potential bone/heart infections - Infectious disease onboard: recommend Ceftaroline and Daptomycin IV antibiotics and oral Vancomycin C.diff ppx - Bcx positive for Enterococcus Faecium VRE and gram positive cocci in chains more recently - ID recommends daily blood cultures until negative for 48 hours and likely at least 6 weeks of IV abx therapy for potential endocarditis - TTE largely wnl however poor visualization of replacement aortic valve - Patient will defer MOIZ at this time as he is poor surgical candidate, poor outcomes with anesthesia, and evidence of vegetations will likely only lengthen abx duration Severe Dementia - Patient in memory unit at [facility] - Likely will require SNF capable of IV abx and significant rehab before transfer back - Per family, significant decline in condition, hx of fall, and 3 months with 25 pound weight loss Code status: DNR/DNI Dispo: Rehab after stabilization, pending placement. VTE prop: Mechanical. [facility] for 2 years. Admission and Anticipated Discharge Date Admission Date: September 12, 2024 Supervising Physician Co-Signing Physician Notes I personally examined the patient and verified all brandon points of history and exam, discussed case, and agree with decision making with Dr Escobedo no meaningful HPI or review of systems obtainable from patient. updated dtr at the bedside, answered all questions to the best of my ability and to her satisfaction Vitals noted, in general he is sleeping comfortably, no distress. HEENT normocephalic atraumatic mucous membranes moist. Breathing unlabored no accessory muscle use good effort. Skin without rashes pallor or icterus. Neuro without focal deficits. Enterococcal bacteremia with concern on endocarditis and osteomyelitis Anticipate 6 weeks of treatment for enterococcal bacteremia and suspected endocarditis, and likely chronic suppressive management thereafter given his prosthetic valve. blood cultures now hopefully cleared (with last (+) being from 09/15 - late growth (which of alaynae means there still could be late growth on labs from 09/16, but with none thus far, will hold on further culture checks until/unless 09/16 starts to show late growth, so as to save patient lab draws/phlebotomy)). PT/OT eval and treat - will need SNF at dispo (came from [facility]). otherwise as above Subjective Daughter on bedside endorses that Mr. Lopez is definitely getting better for her. He responds better than before, looks more in peace. Sleeping has improved. Answered questions of daughter about his MRI, further management and prognosis. 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 No fever, vomiting. Baseline cognition, diet, sleep-- improving. Review of Systems Review of Systems: As per HPI Physical Exam Physical Exam: Constitutional: Sleeping supine on bed, Well appearing, No acute distress. Breathing via his mouth. HEENT: Atraumatic, Normocephalic CVS: Looks well perfused. Respiratory: No increased work of breathing. No use of accessory muscle of res piration. GI: Nondistended Results & Data Results & Data Vital Signs (Past 12 Hours) Vital Signs Temp Pulse Resp BP BP Pulse Ox O2 Del Method 09/18/24 08:15 36.6 C 89 18 128/82 94 Room Air 09/17/24 21:21 36.6 C 81 16 120/77 98 Room Air Resident Activity Tracking Resident Involvement: Resident Care Provided Care Provided: Adult Hospital Medicine
--- NOTE | 2024-09-18 18:11 | Billing Data ---
Date of Service September 18, 2024 Coding Level of Care Code 36458 SUB INP/OBS CARE MIN
[2024-09-19 06:59] LABS: Basophils # (auto) 0.06 K/uL (0.00-0.20); Basophils % (auto) 0.7 %; Eosinophils # (auto) 0.62 K/uL (0.00-0.50); Eosinophils % (auto) 6.9 %; Hematocrit (blood only) 31.6 % (42.0-52.0); Hemoglobin 10.3 g/dl (14.0-18.0); Immature Granulocytes # (auto) 0.05 K/uL (0.01-0.20); Immature Granulocytes % (auto) 0.6 %; Lymphocytes # (auto) 1.91 K/uL (1.20-3.40); Lymphocytes % (auto) 21.1 %; Mean Corpuscular Hgb Conc 32.6 g/dL (32.0-36.0); Mean Corpuscular Volume 92.1 fL (80.0-100.0); Mean Platelet Volume 9.1 fL (9.4-12.4); Monocytes # (auto) 0.72 K/uL (0.11-0.59); Neutrophils # (auto) 5.68 K/uL (1.40-6.50); Neutrophils % (auto) 62.7 %; Platelet Count 225 K/uL (130-400); RDW Coefficient of Variation 13.5 % (11.5-14.5); RDW Standard Deviation 45.1 fL (36.4-46.3); Red Blood Count 3.43 M/uL (4.70-6.10); White Blood Count 9.04 K/ul (4.8-10.8)
--- NOTE | 2024-09-19 10:53 | Hospitalist Progress Note ---
Date of Service September 19, 2024 Assessment & Plan (1) Lumbar stress fracture: (2) Osteomyelitis: (3) Bacteremia: (4) Endocarditis: Plan Keith Lopez is an 82yo M and resident of [facility] with h/o prior CVA, dementia, seizure, chronic indwelling martinez, recurrent UTIs, paroxysmal atrial tachycardia, bicuspid valve s/p aortic valve replacement/proximal aortic aneurysm repair 2013, left hip replacement in 2022, HTN, prior C. diff infection 07/2023 with recurrence 08/2023, who presented to [facility] on 09/12/24 with back pain, found to have / BCx + with Enterococcus VRE. L-spine CT:Linear lucencies in end plates of T12-L1 representing acute non-displaced fracture, sof t tissue edema present that could correlate to discitis/osteomyelitis, or other bony infection. MRI confirms this with concern for discitis osteomyelitis versus fracture. no abscess seen. Lumbar stress fracture/osteomyelitis - ID on board: appreciate recs. - No leukocytosis, but Enterococcus VRE present in blood cultures - Continue pain management - scheduled Tylenol and ibuprofen - Orthopedics onboard, will determine bracing/immobilization after further spine imaging Bacteremia/Endocarditis/UTI Patient with hx of AVR and proximal aortic aneurysm repair and indwelling martinez catheter for approximately 2 years Infection spread likely from GI proximity to bladder causing UTI, blood stream infection, and potential bone/heart infections Infectious disease consulted: recommend Ceftaroline and Daptomycin IV antibiotics and oral Vancomycin C.diff ppx (hx of Cdiff). likely at least 6 weeks of IV antibiotics for potential endocarditis and lifelong suppressive therapy Blood cultures positive for VRE 09/12, 09/13, 09/14, and 09/15. At this time 09/16 blood cultures and 09/17 blood cultures negative x 48 hours TTE largely wnl however poor visualization of replacement aortic valve - Patient will defer MOIZ at this time as he is poor surgical candidate, poor outcomes with anesthesia, and evidence of vegetations will likely only lengthen abx duration Severe Dementia Patient in memory unit at [facility], will require SNF capable of IV abx and significant rehab before transfer back Per family, significant decline in condition, hx of fall, and 3 months with 25 pound weight loss Urinary retention Follows with urology, chronic Martinez in place. CT scan showed renal cyst and possible bladder stones. consider renal ultrasound if further indication of cyst is needed Dispo: continued inpatient stay, ID consult tomorrow. Eventual SNF placement VTE prop: [facility] for 2 years. daughter updated at bedside 09/19 Admission and Anticipated Discharge Date Admission Date: September 12, 2024 Supervising Physician Co-Signing Physician Notes Attending Attestation - Chart reviewed, care plan d/w CRISTIAN Sandoval. I agree w/ the brandon components of her documentation with the following addition - * severe protein calorie malnutrition -- weight loss of at least 10kg, possibly closer to 12kg, in the last 6+ months Dementia, and now infectious processes, all to blame Appreciate ID assistance for abx. Lalit Rea MD Subjective daughter present at bedside, states that Jean Carlos was awake earlier this morning and ate breakfast and was talking with her in about 10 minutes prior to my arrival he decided he wanted to take a nap. Patient endorses pain to his back but is unable to quantify the level of pain. Family's understanding on waiting to place a PICC line until we have the blood cultures are negative and the bacteremia has cleared Review of Systems Review of Systems: All systems reviewed & are unremarkable except as noted in Subjective Physical Exam Physical Exam: Constitutional: Sleeping sitting up in bed, Well appearing, No acute distress. HEENT: Atraumatic, Normocephalic CVS: Looks well perfused. RRR Respiratory: No increased work of breathing. No use of accessory muscle of respiration. clear to auscultation anteriorly GI: Nondistended extremities: No lower extremity edema, able to wiggle toes bilaterally Results & Data Results & Data Diagnostic Findings CBC reviewed CRP reviewed Blood cultures reviewed PG Care Time/CCT Total # of Minutes Spent Total Time Spent with Patient: Total time spent is greater than 50% in coordination of care (as documented) at patient's floor/unit and/or counseling patient: Coding Level of Care Code 50056 SUB INP/OBS CARE 2/35MIN Diagnoses Lumbar stress fracture M48.46XA Osteomyelitis M86.9 Bacteremia R78.81 Endocarditis I38
[2024-09-20 08:22] LABS: Basophils # (auto) 0.06 K/uL (0.00-0.20); Basophils % (auto) 0.7 %; Eosinophils # (auto) 0.55 K/uL (0.00-0.50); Eosinophils % (auto) 6.7 %; Hematocrit (blood only) 32.1 % (42.0-52.0); Hemoglobin 10.7 g/dl (14.0-18.0); Immature Granulocytes # (auto) 0.03 K/uL (0.01-0.20); Immature Granulocytes % (auto) 0.4 %; Lymphocytes % (auto) 24.4 %; Mean Corpuscular Hemoglobin 30.2 pg (25.0-34.0); Mean Corpuscular Hgb Conc 33.3 g/dL (32.0-36.0); Mean Corpuscular Volume 90.7 fL (80.0-100.0); Mean Platelet Volume 9.4 fL (9.4-12.4); Monocytes % (auto) 8.5 %; Neutrophils # (auto) 4.86 K/uL (1.40-6.50); Neutrophils % (auto) 59.3 %; Platelet Count 238 K/uL (130-400); RDW Coefficient of Variation 13.4 % (11.5-14.5); RDW Standard Deviation 43.8 fL (36.4-46.3); Red Blood Count 3.54 M/uL (4.70-6.10)
--- NOTE | 2024-09-20 13:10 | Infectious Disease Progress Nt ---
Date of Service September 20, 2024 Assessment & Plan (1) VRE (vancomycin-resistant Enterococci) infection: (2) Osteomyelitis: (3) Bacteremia: (4) Endocarditis: Plan 82yo M and resident of [facility] with h/o prior CVA, dementia, seizure, chronic indwelling martinez, recurrent UTIs, paroxysmal atrial tachycardia, bicuspid valve s/p aortic valve replacement/proximal aortic aneurysm repair 2013, left hip replacement in 2022, HTN, prior C. diff infection 07/2023 with recurrence 08/2023, who presented to [facility] on 09/12/24 with back pain and progressive bl LE weakness x few weeks. On admission, afebrile, WBC 11.79 ESR 53 CRP 10.34. UA (Martinez) with >50 WBCs, 6-10 RBCs, UCx growing Klebsiella variicola. 09/12 BCx growing VRE faecium. 09/12 CT A/P showed moderate air-fluid distended rectum. 09/12 CT L spine with lucencies of endplates of T12-L1 c/f fractures though with associated paraspinal soft tissue edema c/f infection. Ortho was consulted, and felt that the CT could show minor endplate fractures, but recommended MRI for further evaluation. MRI L spine with abnormal enhancement and edema signal involving the inferior endplate of T12 and superior endplate of L1 as well as the intervertebral disc space, finding could suggest discitis osteomyelitis in a proper clinical context, though subacute fracture may yield similar appearance; no epidural or subdural collection. TTE 09/14 with hyperdynamic LV, asymmetric hypertrophy of anteroseptum; bioprosthetic valve not well-visualized, elevated transvalvular velocity and gradient (increased from prior in 04/2024); technically poor study. Initially recommended MOIZ given pt with aortic valve replacement and proximal aorta repair per patients , this is not within current GOC and would be OK with empiric IV abx treatment for possible PVE. Given high grade bacteremia and dapto MICs, he is being treated with combination daptomycin and ceftaroline. Pt with high-grade (4/4 bottles) VRE. faecium bacteremia. Suspected spinal infection based on CT scan. Note pt with aortic valve replacement and proximal aorta repair, as well as L hip replacement. In the setting of bacteremia, back pain and MRI findings are highly c/f discitis/osteomyelitis. 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 Will continue daptomycin for coverage of VRE, noting MARTA of dapto is 4. There is synergy of dapto with beta-lactams which improve bactericidal effect of daptomycin (which is also the recommendations for management of VRE endocarditis by the guidelines). Therefore, also continuing ceftaroline. Will plan at least 6 week course with dual therapy (ie dapto + ampicillin). Note the pts advanced dementia and frailty, thus concern that he would be a poor surgical candidate and have a poor prognosis. GOC discussions ongoing. # VRE. 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 diff # Chronic indwelling Martinez in place - Continue daptomycin 850 mg (12 mg/kg) IV q24h (high dose given high VRE. faecium with high daptomycin MARTA) - Continue ceftaroline 600 mg IV q8h (for synergy with daptomycin) for at least 1 week from negative BCX (until 09/22) or until discharge if after 09/22 when ready for dc, will change to a different agent for continued synergy (ie ampicillin 2g IV q6h) - duration of IV abx will be 6 weeks (start 09/16, end through 10/27) - Continue vancomycin 125 mg PO daily for secondary ppx given h/o recurrent C. diff - continue while on systemic abx then for one week after stopping abx (will be through 11/03) - Per GO, currently holding off on MOIZ in favor of empiric treatment of possible PVE - please monitor at least weekly CBC w diff, BMP, LFTs, and CPK while on IV abx - he will need follow up with local ID provider Will continue to follow. If questions or concerns, contact via [facility] or Infectious Disease Call Center . Anaya Narvaez MD [facility], Division of Infectious Diseases Admission and Anticipated Discharge Date Admission Date: September 12, 2024 Subjective This patient recommendation is based on a telemedicine consult request which was completed asynchronously through chart review and information provided by the primary physician. The patient was not seen or examined today. The evaluation is consultative in nature and all patient care and treatment decisions can either be accepted or rejected by the patient's primary hospital-based treating physician using their own independent medical judgment for their patient. Time Spent Reviewing Chart: 31+ minutes Afebrile. Results & Data Vital Signs (Past 12 Hours) Vital Signs Temp Pulse Resp BP Pulse Ox O2 Del Method 09/20/24 08:06 36.7 C 86 18 151/81 H 93 Room Air 09/20/24 08:00 Room Air Laboratory Results Labs reviewed. Diagnostic Findings Imaging reviewed.
--- NOTE | 2024-09-20 14:45 | Hospitalist Progress Note ---
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 L-spine Bacteremia/Endocarditis/UTI Patient with hx of AVR and proximal aortic aneurysm repair and indwelling Martinez catheter for approximately 2 years. Infection spread likely from GI proximity to bladder causing UTI, blood stream infection, and potential bone/heart infections ID consulted: recommend Ceftaroline and Daptomycin IV antibiotics and oral Vancomycin C.diff ppx (hx of Cdiff). likely at least 6 weeks of IV antibiotics for potential endocarditis and lifelong suppressive therapy Blood cultures positive for VRE 09/12, 09/13, 09/14, and 09/15. BC negative x 48 hours (09/16 & 09/17) TTE largely wnl however poor visualization of replacement aortic valve - Patient will defer MOIZ at this time as he is poor surgical candidate, poor outcomes with anesthesia, and evidence of vegetations will likely only lengthen abx duration CBC 09/20 w/o leukocytosis, stable hgb at 10.7 Lumbar stress fracture/osteomyelitis - CT:Linear lucencies in end plates of T12-L1 representing acute non-displaced fracture, soft tissue edema present that could correlate to discitis/osteomyelitis, or other bony infection. - MRI confirms this with concern for discitis osteomyelitis versus fracture. no abscess seen. - Continue pain management - scheduled Tylenol and ibuprofen - Orthopedics onboard, will determine bracing/immobilization Severe Dementia Patient in memory unit at [facility], will require SNF capable of IV abx and significant rehab before transfer back Per family, significant decline in condition, hx of fall, and 3 months with 25 pound weight loss CM following for placement, discussed 4/14. Urinary retention Follows with urology, chronic Martinez in place. CT scan showed renal cyst and possible bladder stones. consider renal ultrasound if further indication of cyst is needed Dispo: patient medically stable for discharge pending SNF placement. VTE prop: SCDs updated at bedside 09/20. Admission and Anticipated Discharge Date Admission Date: September 12, 2024 Supervising Physician Co-Signing Physician Notes Attending Attestation - Chart reviewed, care plan d/w CRISTIAN Santiago. I agree w/ the brandon components of her documentation with the following addition - * severe protein calorie malnutrition -- weight loss of at least 10kg, possibly closer to 12kg, in the last 6+ months * added this diagnosis to today's problem list Cont IV ceftaroline and daptomycin. Lalit Rea MD Subjective Patient seen and examined this morning. Patient was sitting in bed, present. Patient did not provide any history. reports he took his AM meds, ate breakfast, and worked with PT this morning. She reports he was worn out from all the activities. Physical Exam Constitutional: WD/WN, vitals as above Respiratory: normal respiratory effort, lungs clear to auscultation Cardiovascular: RRR, no murmur, no edema Psychiatric: cooperative Results & Data Results & Data Vital Signs (Past 12 Hours) Vital Signs Temp Pulse Resp BP Pulse Ox O2 Del Method 09/20/24 08:06 36.7 C 86 18 151/81 H 93 Room Air 09/20/24 08:00 Room Air PG Care Time/CCT Total # of Minutes Spent Total Time Spent with Patient: Total time spent is greater than 50% in coordination of care (as documented) at patient's floor/unit and/or counseling patient: Coding Level of Care Code 05741 SUB INP/OBS CARE 2/35MIN Diagnoses Lumbar stress fracture M48.46XA Osteomyelitis M86.9 Bacteremia R78.81 Endocarditis I38 Severe protein-calorie malnutrition E43 VRE (vancomycin-resistant Enterococci) infection A49.1; Z16.21
[2024-09-21 06:37] LABS: Basophils % (auto) 1.3 %; Eosinophils # (auto) 0.61 K/uL (0.00-0.50); Eosinophils % (auto) 7.6 %; Hematocrit (blood only) 30.4 % (42.0-52.0); Hemoglobin 10.2 g/dl (14.0-18.0); Immature Granulocytes # (auto) 0.04 K/uL (0.01-0.20); Immature Granulocytes % (auto) 0.5 %; Lymphocytes # (auto) 1.85 K/uL (1.20-3.40); Lymphocytes % (auto) 23.1 %; Mean Corpuscular Hemoglobin 30.5 pg (25.0-34.0); Mean Corpuscular Hgb Conc 33.6 g/dL (32.0-36.0); Mean Platelet Volume 9.2 fL (9.4-12.4); Monocytes # (auto) 0.72 K/uL (0.11-0.59); Neutrophils # (auto) 4.68 K/uL (1.40-6.50); Neutrophils % (auto) 58.5 %; Platelet Count 220 K/uL (130-400); RDW Coefficient of Variation 13.6 % (11.5-14.5); RDW Standard Deviation 44.9 fL (36.4-46.3); Red Blood Count 3.34 M/uL (4.70-6.10)
--- NOTE | 2024-09-21 08:50 | Orthopedic Progress Note ---
Date of Service September 21, 2024 Subjective Pt seen and examined, awake in bed, not exhibiting any pain at that time. MRI LUMBAR SPINE WITH and WITHOUT CONTRAST September 17, 2024 IV CONTRAST: 10 mL of Gadavist was intravenously administered. INDICATION: Back pain COMPARISON: Lumbar spine CT September 12, 2024. FINDINGS: There is abnormal enhancement and edema along the inferior endplate of T12 and the superior endplate of L1. The intervertebral disc space at T12-L1 also demonstrates abnormal enhancement edema signal. No epidural or subdural collection is identified. The conus terminates at L1. No significant vertebral body height loss. Grade 1 anterolisthesis of L5 on S1 with chronic pars defects. Mild retrolistheses of L1 on L2 and L2 on L3. There are multilevel degenerative changes of the lumbar spine as below: L1-2: Broad-based disc bulge, more eccentric the left, bilateral facet hypertrophy and thickening of the ligamentum flavum. These changes result in moderate to severe crowding of the left subarticular recess where the traversing nerve root appears to be impinged and severe narrowing of the left neural foramen. L2-3: Broad-based disc bulge, more eccentric the left, bilateral facet hypertrophy and thickening of the ligamentum flavum. These changes result in moderate to severe crowding of the left greater than right subarticular recesses where the traversing nerve roots appear to be impinged and severe narrowing of bilateral neural foramina. The left exiting nerve is impinged at the neural foramen. L3-4: Broad-based disc bulge, bilateral facet hypertrophy and thickening of the ligamentum flavum. These changes result in moderate crowding of the subarticul ar recesses. Moderate right and severe left neural foraminal narrowing. The left exiting nerve is impinged at the neural foramen. L4-5: Broad-based disc bulge, bilateral facet hypertrophy and thickening of the ligamentum flavum. These changes result in moderate crowding of the subarticular recesses. Severe right and moderate to severe left neural foraminal narrowing. The right exiting nerve is impinged at the neural foramen and the left neural foramen appears to be impinged extraforaminally. L5-S1: Broad-based disc bulge with uncovering of the disc, bilateral facet hypertrophy and thickening of the ligamentum flavum. These changes result in moderate crowding of the subarticular recesses. Moderate to severe bilateral rneural foraminal narrowing. The exiting nerve roots are impinged extraforaminally. IMPRESSION: Abnormal enhancement and edema signal involving the inferior endplate of T12 and superior endplate of L1 as well as the intervertebral disc space. This finding could suggest discitis osteomyelitis in a proper clinical context, though subacute fracture may yield similar appearance. No epidural or subdural collection is identified at this time. Above listed MRI of the lumbar spine was reviewed, this is my separate interpretation, this reveals the patient to have the enhancement is noted at the inferior endplate of T12 and superior endplate of L1 with possible indications of osteomyelitis/discitis. WBC on January 21, 2025: 8.0, C-reactive protein from September 19, 2024 2.10 Impression: Patient with several week history of pain with transitions, radiographic imaging potentially suggestive of discitis and or osteomyelitis at T12 and L1 as indicated. Plan: Continue with antibiotic treatment. Brace could be considered, TLSO, but it would have to be taken into consideration as to whether or not the patient would wear the brace on a regular basis. Review of Systems All systems reviewed & are unremarkable except as noted in HPI & below. Physical Exam . Results & Data Results & Data Laboratory Results . Diagnostic Findings . PG Care Time/CCT Total # of Minutes Spent Total Time Spent with Patient: Total time spent is greater than 50% in coordination of care (as documented) at patient's floor/unit and/or counseling patient: Coding Level of Care Code 84604 SUB INP/OBS CARE 2/35MIN
[2024-09-21 15:48] LABS: Calcium 8.4 mg/dl (8.6-10.3); Potassium 4.3 mmol/L (3.5-5.1)
[2024-09-21 15:54] LABS: BUN Creatinine Ratio 21.6 (10-20)
--- NOTE | 2024-09-21 16:42 | Hospitalist Progress Note ---
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 L-spine Bacteremia/Endocarditis/UTI Patient with hx of AVR and proximal aortic aneurysm repair and indwelling Martinez catheter for approximately 2 years. Infection spread likely from GI proximity to bladder causing UTI, blood stream infection, and potential bone/heart infections ID consulted: recommend Ceftaroline and Daptomycin IV antibiotics and oral Vancomycin C.diff ppx (hx of Cdiff). likely at least 6 weeks of IV antibiotics for potential endocarditis and lifelong suppressive therapy Discussed w/ ID 09/21 that patient will require Daptomycin, no other option upon discharge for his infection. Blood cultures positive for VRE 09/12, 09/13, 09/14, and 09/15. BC negative x 48 hours (09/16 & 09/17) TTE largely wnl however poor visualization of replacement aortic valve - Patient will defer MOIZ at this time as he is poor surgical candidate, poor outcomes with anesthesia, and evidence of vegetations will likely only lengthen abx duration CBC/BMP stable,, procal 0.09 09/21 If patient continues to remain lethargic/sleeping most of time, consider repeat head CT/MRI. Will reassess in AM. Lumbar stress fracture/osteomyelitis CT:Linear lucencies in end plates of T12-L1 representing acute non-displaced fracture, soft tissue edema present that could correlate to discitis/osteomyelitis, or other bony infection. MRI confirms this with concern for discitis osteomyelitis versus fracture. no abscess seen. Continue pain management - scheduled Tylenol and ibuprofen Orthopedics onboard - re-eval 09-21 - consider brace but may not tolerate wearing it. Severe Dementia Patient in memory unit at [facility], will require SNF capable of IV abx and significant rehab before transfer back Per family, significant decline in condition, hx of fall, and 3 months with 25 pound weight loss CM following for placement Urinary retention Follows with urology, chronic Martinez in place. CT scan showed renal cyst and possible bladder stones. consider renal ultrasound if further indication of cyst is needed Dispo: patient medically stable for discharge pending SNF placement. VTE prop: SCDs updated at bedside 09/21 Admission and Anticipated Discharge Date Admission Date: September 12, 2024 Supervising Physician Co-Signing Physician Notes Attending Attestation - Chart reviewed, care plan d/w CRISTIAN Santiago. I agree w/ the brandon components of her documentation with the following addition - * acute encephalopathy - etiology? In light of possible endocarditis of his TAVR consider head imaging to r/o subacute CVA or septic emboli IF altered MS continues. Cont IV ceftaroline and daptomycin. Lalit Rea MD Subjective Patient seen and examined this morning. Patient's vocalizes concerns that patient has been sleeping majority of morning. patient did not want much for breakfast prior to her arriving. re-evaluated this afternoon and patient still continues to be drowsy. He does awaken if given medications/food. Discussed in detail w/ . Physical Exam Constitutional: WD/WN, vitals as above Eyes: PERRL, conjunctivae normal, anicteric sclerae Respiratory: normal respiratory effort, lungs clear to auscultation Cardiovascular: RRR, no murmur, no edema Results & Data Results & Data Vital Signs (Past 12 Hours) Vital Signs Temp Pulse Resp BP Pulse Ox O2 Del Method 09/21/24 14:55 36.5 C 75 16 139/87 97 Room Air 09/21/24 08:28 Room Air 09/21/24 08:02 36.4 C L 85 16 133/76 93 Room Air PG Care Time/CCT Total # of Minutes Spent Total Time Spent with Patient: Total time spent is greater than 50% in coordination of care (as documented) at patient's floor/unit and/or counseling patient: Coding Level of Care Code 80491 SUB INP/OBS CARE 3/50MIN Diagnoses Lumbar stress fracture M48.46XA Osteomyelitis M86.9 Bacteremia R78.81 Endocarditis I38 Severe protein-calorie malnutrition E43 VRE (vancomycin-resistant Enterococci) infection A49.1; Z16.21
[2024-09-22 06:41] LABS: Hematocrit (blood only) 30.1 % (42.0-52.0); Mean Corpuscular Hemoglobin 30.5 pg (25.0-34.0); Mean Corpuscular Hgb Conc 33.2 g/dL (32.0-36.0); Mean Corpuscular Volume 91.8 fL (80.0-100.0); Mean Platelet Volume 9.3 fL (9.4-12.4); Platelet Count 198 K/uL (130-400); RDW Coefficient of Variation 13.9 % (11.5-14.5); Red Blood Count 3.28 M/uL (4.70-6.10); White Blood Count 9.24 K/ul (4.8-10.8)
[2024-09-22 07:39] LABS: Calcium 8.4 mg/dl (8.6-10.3); Potassium 3.6 mmol/L (3.5-5.1)
[2024-09-22 07:44] LABS: BUN Creatinine Ratio 21.4 (10-20); Creatinine Clr Calc Pharmacy 78.3 ml/min
--- NOTE | 2024-09-22 11:44 | Infectious Disease Progress Nt ---
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 On admission, afebrile, WBC 11.79 ESR 53 CRP 10.34. UA (Martinez) with >50 WBCs, 6-10 RBCs, UCx growing Klebsiella variicola. 09/12 BCx growing VRE faecium. 09/12 CT A/P showed moderate air-fluid distended rectum. 09/12 CT L spine with lucencies of endplates of T12-L1 c/f fractures though with associated paraspinal soft tissue edema c/f infection. Ortho was consulted, and felt that the CT could show minor endplate fractures, but recommended MRI for further evaluation. MRI L spine with abnormal enhancement and edema signal involving the inferior endplate of T12 and superior endplate of L1 as well as the intervertebral disc space, finding could suggest discitis osteomyelitis in a proper clinical context, though subacute fracture may yield similar appearance; no epidural or subdural collection. TTE 09/14 with hyperdynamic LV, asymmetric hypertrophy of anteroseptum; bioprosthetic valve not well-visualized, elevated transvalvular velocity and gradient (increased from prior in 04/2024); technically poor study. Initially recommended MOIZ given pt with aortic valve replacement and proximal aorta repair per patients , this is not within current GOC and would be OK with empiric IV abx treatment for possible PVE. Given high grade bacteremia and dapto MICs, he is being treated with combination daptomycin and ceftaroline. Pt with high-grade (4/4 bottles) VRE. faecium bacteremia. C/f discitis/OM based on MRI. Note pt with aortic valve replacement and proximal aorta repair, as well as L hip replacement. 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 Will continue daptomycin for coverage of VRE, noting MARTA of dapto is 4. There is synergy of dapto with beta-lactams which improve bactericidal effect of daptomycin (which is also the recommendations for management of VRE endocarditis by the guidelines). Therefore, also continuing ceftaroline. Will plan at least 6 week course with dual therapy. Note the pts advanced dementia and frailty, thus concern that he would be a poor surgical candidate and have a poor prognosis. GOC discussions ongoing. # VRE. 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 diff # Chronic indwelling Martinez in place # Sacral pressure ulcer - wound care for sacral pressure ulcer - Continue daptomycin 850mg (12 mg/kg, Wt 69.2kg, CrCl 78) IV q24h (high dose given high VRE. faecium with high daptomycin MARTA) - Continue ceftaroline 600 mg IV q8h (for synergy with daptomycin) for at least 1 week from negative BCX (until 09/22) afterwards will change ampicillin 2g IV q6h - continue vancomycin 125 mg PO daily - Per [facility], currently holding off on MOIZ in favor of empiric treatment of possible PVE Discharge plan: - daptomycin 850mg IV q24h PLUS ampicillin 2g IV q6h - duration of IV abx will be 6 weeks (start 09/16, end through 10/27) - Continue vancomycin 125 mg PO daily while on systemic abx, then for one week after systemic tx (will be through 11/03) - please monitor at least weekly CBC w diff, BMP, LFTs, and CPK while on IV abx - he will need follow up with local ID provider Will discontinue active follow up at this time. Please do not hesitate to reconsult the Infectious Diseases service as needed. Anaya Narvaez MD [facility], Division of Infectious Diseases [facility]: [phone] Admission and Anticipated Discharge Date Admission Date: September 12, 2024 Subjective Subsequent visit was provided via telemedicine using two-way real-time interactive telecommunication between the patient and the telemedicine provider. For the duration of the visit, the provider was performing the assessment from a different facility than the patient. This includesuse of bluetooth stethoscope forauscultationperformed by the telepresenter that the telemedicine provider can hear if described in the physical exam. Cable Machine Operator contact information: Please call [facility] Call Center [phone]. (Phone Number For Physician Use Only) After establishing a telemedicine visit, patient was: Patient was verified with two unique identifiers, Patient/authorized rep acknowledged consent and understanding and Gave permission to continue telehealth session Time Spent with Patient: Subsequent => 55 min at bedside, she says patient is more delirious today. Per RN, no diarrhea, he has had formed stools. Physical Exam Physical Exam: General: Awake, no acute distress HEENT: NC/AT Abdomen: soft Back: sacral area with dusky discoloration and open wound, no drainage Ext: no rash Results & Data Vital Signs (Past 12 Hours) Vital Signs Temp Pulse Resp BP Pulse Ox O2 Del Method 09/22/24 09:00 Room Air 09/22/24 07:58 33.7 C L 79 14 139/81 94 Room Air
[2024-09-22] MEDS ORDERED: SIMETHICONE 80 MG CHEW PO PRN (14:27)
--- NOTE | 2024-09-22 16:34 | Hospitalist Progress Note ---
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 L-spine Bacteremia/Endocarditis/UTI Patient with hx of AVR and proximal aortic aneurysm repair and indwelling Martinez catheter for approximately 2 years. Infection spread likely from GI proximity to bladder causing UTI, blood stream infection, and potential bone/heart infections ID consulted: 6 weeks total of IV abx therapy. IV Ceftaroline through 09/22. Starting 09/23 start ampicillin 2g IV q 6h, continue Daptomycin 850mg IV q24h through 10/27. Vancomycin 125mg PO daily through 11/03. CBC/BMP/LFTs/CPK weekly while in abx. Needs local ID follow up. Blood cultures positive for VRE 09/12, 09/13, 09/14, and 09/15. BC negative x 48 hours (09/16 & 09/17) TTE largely wnl however poor visualization of replacement aortic valve - Patient will defer MOIZ at this time as he is poor surgical candidate, poor outcomes with anesthesia, and evidence of vegetations will likely only lengthen abx duration CBC/BMP stable, procal 0.09 09/21 Lumbar stress fracture/osteomyelitis CT:Linear lucencies in end plates of T12-L1 representing acute non-displaced fracture, soft tissue edema present that could correlate to discitis/osteomyelitis, or other bony infection. MRI confirms this with concern for discitis osteomyelitis versus fracture. no abscess seen. Continue pain management - scheduled Tylenol and ibuprofen, added 25mg Tramadol PO q 4h to aide w/ pain control in repositioning & movement. Orthopedics onboard - re-eval 09-21 - consider brace but may not tolerate wearing it. Severe Dementia Patient in memory unit at [facility], will require SNF capable of IV abx and significant rehab before transfer back Per family, significant decline in condition, hx of fall, and 3 months with 25 pound weight loss CM following for placement Urinary retention Follows with urology, chronic Martinez in place. CT scan showed renal cyst and possible bladder stones. consider renal ultrasound if further indication of cyst is needed Dispo: patient medically stable for discharge pending SNF placement. VTE prop: SCDs updated at bedside 09/22, Updated daughter by phone 09/22. Discussed w/ CM 09/22 --> patient to go to [facility] tomorrow, 09/23 pending transportation. Admission and Anticipated Discharge Date Admission Date: September 12, 2024 Subjective Patient seen and examined this morning. Patient worked w/ PT/OT prior to my exam this morning. Patient poor historian at baseline and unable to answer questions. Discussed w/ - patient seems to be in severe amount of pain working with therapy and with repositioning. We discussed options for pain control including tramadol which she was agreeable to try. Physical Exam Constitutional: WD/WN, vitals as above Eyes: PERRL, conjunctivae normal, anicteric sclerae Respiratory: breathing unlabored Cardiovascular: well perfused Psychiatric: alert Results & Data Results & Data Vital Signs (Past 12 Hours) Vital Signs Temp Pulse Resp BP BP Pulse Ox O2 Del Method 09/22/24 12:00 36.6 C 75 13 132/80 96 Room Air 09/22/24 09:00 Room Air 09/22/24 07:58 33.7 C L 79 14 139/81 94 Room Air PG Care Time/CCT Total # of Minutes Spent Total Time Spent with Patient: Total time spent is greater than 50% in coordination of care (as documented) at patient's floor/unit and/or counseling patient: Coding Level of Care Code 84662 SUB INP/OBS CARE 3/50MIN Diagnoses Lumbar stress fracture M48.46XA Osteomyelitis M86.9 Bacteremia R78.81 Endocarditis I38 Severe protein-calorie malnutrition E43 VRE (vancomycin-resistant Enterococci) infection A49.1; Z16.21
[2024-09-22] MEDS: AMPICILLIN 2,000 MG in SODIUM CHLOR 0.9% MINI-B 100 ML IV SCH (21:54)
[2024-09-23] MEDS ORDERED: AMPICILLIN SOD 1 GM VIAL IV SCH (06:00)
[2024-09-23 08:16] VITALS: BP 138/83; PULSE 81; RESP 16; TEMP 98.6; O2SAT 94
--- NOTE | 2024-09-23 10:53 | Discharge Summary ---
Discharge Summary Date of Service September 23, 2024 Principal Dx & Hospital Course #1 = Principal Diagnosis (1) Lumbar stress fracture: (2) Osteomyelitis: (3) Bacteremia: (4) Endocarditis: (5) Severe protein-calorie malnutrition: (6) VRE (vancomycin-resistant Enterococci) infection: Shaq Lopez is an 82yo M and resident of [facility] with h/o prior CVA, dementia, seizure, chronic indwelling martinez, recurrent UTIs, paroxysmal atrial tachycardia, bicuspid valve s/p aortic valve replacement/proximal aortic aneurysm repair 2013, left hip replacement in 2022, HTN, prior C. diff infection 07/2023 with recurrence 08/2023, who presented to [facility] on 09/12/24 with back pain, found to have 09/10 BCx + with Enterococcus VRE. L-spine Bacteremia/Endocarditis/UTI Patient with hx of AVR and proximal aortic aneurysm repair and indwelling Martinez catheter for approximately 2 years. Infection spread likely from GI proximity to bladder causing UTI, blood stream infection, and potential bone/heart infections ID consulted: 6 weeks total of IV abx therapy. IV Ceftaroline through 09/22. Starting 09/23 start ampicillin 2g IV q 6h, continue Daptomycin 850mg IV q24h through 10/27. Vancomycin 125mg PO daily through 11/03. CBC/BMP/LFTs/CPK weekly while in abx. Needs local ID follow up. Blood cultures positive for VRE 09/12, 09/13, 09/14, and 09/15. BC negative x 48 hours (09/16 & 09/17) TTE largely wnl however poor visualization of replacement aortic valve - Patient will defer MOIZ at this time as he is poor surgical candidate, poor outcomes with anesthesia, and evidence of vegetations will likely only lengthen abx duration CBC/BMP stable, procal 0.09 09/21 PICC placed 09/23 prior to discharge. Lumbar stress fracture/osteomyelitis CT:Linear lucencies in end plates of T12-L1 representing acute non-displaced fracture, soft tissue edema present that could correlate to discitis/osteomyelitis, or other bony infection. MRI confirms this with concern for discitis osteomyelitis versus fracture. no abscess seen. Recommend continuing Tylenol & Ibuprofen scheduled upon discharge. Tramadol only to be used prior to therapy, discussed in detail with family Orthopedics onboard - re-eval 09-21 - consider brace but may not tolerate wearing it. Severe Dementia Patient in memory unit at [facility], will require SNF capable of IV abx and significant rehab before transfer back Per family, significant decline in condition, hx of fall, and 3 months with 25 pound weight loss Urinary retention Follows with urology, chronic Martinez in place. CT scan showed renal cyst and possible bladder stones. consider renal ultrasound if further indication of cyst is needed Updated daughter at bedside 09/23. Patient discharged to [facility] 09/23. Admission HPI Per Admitting Provider 83 yo male with dementia comes in with back pain. Patient is a poor historian due to his dementia. His daughter is at bedside and is able to provide history Patient has not had a fever but over the course of the past few weeks, he has become weaker, especially in his lower extremities and has been compaling of back pain. In the ED, CT scan of lumbar spine showed signs of possible fracture versus inflammatory process. MRI was to be ordered to further evaluate however due to aortic bicuspid valve replacement, and aorta surgery, will need to get records to ensure safety. Admission will be called. Discharge Exam Constitutional WD/WN, vitals as above Respiratory breathing unlabored Cardiovascular well perfused Psychiatric alert Discharge Plan Discharge Items Patient Disposition: Transfer Shelter Fac Reason For Visit: BACK PAIN/POSSIBLE INFECTION VS FRACTURE LUMBER Discharge Diagnosis: Osteomyelitis, Bacteremia Activity: Resume your previous activity Non-emergency contact: Primary Care Provider Call non-emergency contact if: you have any medication questions, your symptoms worsen and you have a fever Follow-up/Referrals: Shannan Miranda, [Primary Care Provider] - Diet: Regular Addtl Attending Provider Instructions: Mr. Lopez, You were recently hospitalized for back pain and were found to have an infection in your spine that spread to your blood. You were treated with antibiotics and have had improvement. Following you hospital stay, you are going to rehab to help get stronger. Please see recommendations below regarding your discharge. You will be on IV Daptomycin once daily and IV Ampicillin every 6 hours through October 27, 2024. Since you have a history of C diff, a stool infection you will be on oral Vancomycin once daily through November 03, 2024. Please use Tramadol 25mg a half hour prior to therapy sessions to help control your pain. You have been on scheduled Tylenol and ibuprofen which you can continue upon discharge until your pain is adequately controlled. The remainder of your medications may be resumed. We will be referring you to a local infectious disease doctor for continued care. You should hear from their office sometime next week. We typically refer to [facility] in [place]. Please follow up with your PCP within 1-2 weeks of discharge for continued care. If you develop any fevers, chest pain, shortness of breath please report back to the ER for further care. Best of Erin nieves PA-C Pending Studies at Discharge: No Stand-Alone Forms: [facility] Skilled Items Patient informed of condition?: Yes DNR: Yes Discharge Level of Care: Acute rehab Communicable Disease: No Discharge Prognosis: Stable Lines: None and PICC Urinary Catheter: Yes Medications and DC Order Prescriptions: New tramadol 50 mg Tablet 25 mg PO BID PRN (Reason: pain) Qty: 14 0RF Rx Instructions: TAKE 30 MINUTES PRIOR TO THERAPY SESSIONS vancomycin 1,000 mg Recon Soln 125 mg PO DAILY Qty: 10 0RF Rx Instructions: Through 11/03 simethicone [Gas Relief (simethicone)] 80 mg Tablet,Chewable 80 mg PO Q6H PRN (Reason: abdominal distention) Qty: 30 0RF min flavor (bulk) Liquid 5 ea PO DAILY Qty: 3800 0RF Rx Instructions: 5ml with oral vancomycin daily. daptomycin 500 mg recon soln 850 mg IV DAILY Rx Instructions: administer over 30 mins Through 10/27. ampicillin-sulbactam 3 gram recon soln 2 g IV Q6H Rx Instructions: Through 08/27. vancomycin 50 mg/mL recon soln 125 mg PO Q6H Qty: 300 0RF Rx Instructions: Through 11/03 Continued pantoprazole [Protonix] 40 mg tablet,delayed release (DR/EC) 40 mg PO DAILY Qty: 90 3RF folic acid 1 mg tablet 1 mg PO QAM 30 Days Qty: 30 5RF acetaminophen 500 mg tablet 1,000 mg PO Q6 PRN (Reason: pain/fever >101.4) cholecalciferol (vitamin D3) [Vitamin D3] 25 mcg (1,000 unit) Tablet 25 mcg PO DAILY losartan 25 mg tablet 25 mg PO QPM mirabegron [Myrbetriq] 25 mg tablet extended release 24 hr 25 mg PO DAILY aspirin 81 mg Tablet,Delayed Release (Dr/Ec) 81 mg PO DAILY hydrocortisone 1 % Cream 1 applic TOPICAL QS PRN (Reason: Rash) Multiple Vitamin-Minerals Tablet 1 tab PO DAILY ibuprofen 200 mg Tablet 400 mg PO BID food supplemt, lactose-reduced Liquid 1 ea PO QS Lactobacillus rhamnosus GG 1 cap PO QAM cranberry 500 mg Capsule 500 mg PO QPM Rx Instructions: administer with meals Discharge Orders: Discharge Order (Routine); Ordered 09/23/24 Ordered By: Erin Santiago Admission Data Admit Date/Time: 09/12/24 18:34 Attending Provider: Claudia Espinosa Admit Provider: Richard Jefferson Primary Care Provider: Shannan Miranda Other Providers: Richard Jefferson; Messi Saavedra; Dami Claire Nathaniel L.; Lesley Choi; Minh Rice; David Hawkins; Giulia Masterson; Charlee Spain; Anaya Narvaez; Nabor Goldberg; Claudia Saucedo; [place] Noriega; [facility]; [facility] Other Interventions: Discharge Summary Assessment (RN) Last Done: 09/23/24 08:15 Hospital Stay Data Consultations 09/12/24 18:31 ED Decision to Admit Stat 09/13/24 10:48 Consult Orthopedic Spine Surgery Routine 09/13/24 12:39 Consult Infectious Diseases Routine Diagnostic Imagining Performed 09/12/24 12:58 CT abd pelvis wo con Stat CT lumbar spine wo con Stat 09/17/24 14:04 MR lumbar spine wo/w con Routine Pending Results Patient Have Any Pending Studies at Discharge: No Discharge Instructions Given to Patient (Per Discharging Provider) Mr. Lopez, You were recently hospitalized for back pain and were found to have an infection in your spine that spread to your blood. You were treated with antibiotics and have had improvement. Following you hospital stay, you are going to rehab to help get stronger. Please see recommendations below regarding your discharge. You will be on IV Daptomycin once daily and IV Ampicillin every 6 hours through October 27, 2024. Since you have a history of C diff, a stool infection you will be on oral Vancomycin once daily through November 03, 2024. Please use Tramadol 25mg a half hour prior to therapy sessions to help control your pain. You have been on scheduled Tylenol and ibuprofen which you can continue upon discharge until your pain is adequately controlled. The remainder of your medications may be resumed. We will be referring you to a local infectious disease doctor for continued care. You should hear from their office sometime next week. We typically refer to [facility] in [place]. Please follow up with your PCP within 1-2 weeks of discharge for continued care. If you develop any fevers, chest pain, shortness of breath please report back to the ER for further care. Best of Erin nieves PA-C Total Time Total Time Spent Total Time Spent (In Minutes): 50 Total Time Includes: Examination of the Patient, Discharge Planning and Medication Reconciliation Coding Level of Care Code 32683 INP/OBS DISCH >30 MIN Diagnoses Lumbar stress fracture M48.46XA Osteomyelitis M86.9 Bacteremia R78.81 Endocarditis I38 Severe protein-calorie malnutrition E43 VRE (vancomycin-resistant Enterococci) infection A49.1; Z16.21
--- NOTE | 2024-09-23 13:16 | XRay Report ---
XR chest 1V portable CLINICAL HISTORY: right picc placement COMPARISON STUDY: 07/17/2024 FINDINGS: Stable cardiac valve repair. Stable mild cardiomegaly without pulmonary vascular congestion . Right PICC line tip is at the cavoatrial junction. No pulmonary consolidation or pleural effusion s een. No pneumothorax. IMPRESSION: Well-positioned PICC line. ACT 112: Negative or not required by law. Electronically signed by: Dayne Beatty M.D. 09/23/2024 1:15 PM
[2024-09-23] MEDS: traMADol HCL 50 MG TABLET PO PRN (15:15)
== END 2024-09-23 16:15 | DRG 542 ==
LOC: SUATTDRO → ED 12:04 → 3E 18:34 → SUATTDRO 18:34 → 3E 20:52

== ENCOUNTER 2024-12-30 19:46 | Inpatient (IN) ==
--- NOTE | 2024-12-30 20:00 | Emergency Department Note ---
Impression & Plan Acute alteration in mental status, Stroke-like symptom, Acute non-ST elevation myocardial infarction (NSTEMI), Urinary tract infection, Bilateral carotid artery disease ED Provider Note NAME: BRODERICK LOPEZ AGE: 84 SEX: M : 1940 ARRIVES VIA: Ambulance INFORMANT: Patient, EMS, the patient's significant other ED PROVIDER(S): Palomo Estrella DO CHIEF COMPLAINT: Altered mental status HPI: The patient is an 84-year-old male who presented to the emergency department by ambulance. The history is not completely known at this time. We are still awaiting the patient's significant other to arrive. According prehospital personnel the patient had his dinner as usual but then had problems where he stopped breathing normally. The patient stopped answering questions. The patient is currently being treated for urine infection with a positive urine culture. The patient also has multiple infections in his history including endocarditis and discitis. The patient has an indwelling Gamboa catheter. ROS: See above HPI for pertinent positives & negatives. A total of 10 systems reviewed and were otherwise negative. PAST MEDICAL HISTORY: See Below PAST SURGICAL HISTORY: See Below FAMILY HISTORY: See Below SOCIAL HISTORY: See Below HOME MEDICATIONS: See Below ALLERGIES: See Below VITALS: See Below PHYSICAL EXAMINATION: GENERAL: The patient is listless. He does respond to loud verbal commands. EYES: The conjunctivae are clear. The pupils are round and reactive. The patient has a left gaze preference. EARS, NOSE, MOUTH AND THROAT: The nose is without any evidence of any deformity. NECK: The neck is nontender and supple. RESPIRATORY: Shallow respirations were noted. Lung sounds were diminished. CARDIOVASCULAR: Regular rate and rhythm noted there no murmurs rubs or gallops normal S1 normal S2. GASTROINTESTINAL: The abdomen is soft. Abdomen is nontender. MUSCULOSKELETAL/EXTREMITIES: There is no evidence of gross deformity full range of motion is noted in the hips and shoulders. SKIN: Skin is warm and dry. There is no significant pedal edema. NEUROLOGIC: The patient is awake to loud verbal commands. He is tremulous in both upper and lower extremities. He is not able to answer questions at this time. The patient does seem to have some left sided weakness compared to the right but this is very difficult to evaluate at this time. MEDICAL DECISION MAKING: The patient is an 84-year-old male who presented to the emergency department for an evaluation of altered mental status. Initially the patient was not accompanied by family and history was very limited. We were told the patient had an acute change of his mental status. The patient was having trouble breathing. The patient was advertised as no aggressive measures and no code but we were unsure that till the family arrived. The patient on my exam appeared to have some gaze preference and had tremors. He seemed to be a little weaker on his left side compared to his right. When the family arrived they feel that he is at his normal baseline from mental status and neuroexam but they are concerned because he has been complaining of back pain to his significant other. I discussed the patient's laboratory and radiographic studies with him. Given his history extensive testing was obtained including CT of the chest abdomen pelvis. We also did a stroke workup on the patient with CT of the brain and angiography of the head and neck. Ultimately the patient was not found to have any acute process. He does have a history of discitis in the back. He was also found to have a highly elevated troponin. It is possible that the patient does have an NSTEMI but it could also be his back issues returning. He was cultured. I discussed his condition with the on-call [facility]. The patient was treated with empiric antibiotics. He was found to have signs of urinary tract infection on urinalysis. Triage Nursing notes reviewed. Prior medical records reviewed Vital Signs: reviewed and remarkable for low-grade fever Differential diagnosis: Infection, hypoglycemia, electrolyte abnormalities, overdose, toxicologic, cardiac sources, intracerebral event, neurologic, trauma, as well as other pathologies. ER treatment provided: See below Diagnostics interpreted by me: ECG: EKG was obtained in the emergency department. My interpretation is sinus rhythm at 92 bpm. PACs were noted. There is no acute ST segment abnormalities noted. This was compared to a tracing from October 29, 2024. No changes were noted. Cardiac Monitoring: An order was placed for continuous cardiac monitoring. The monitor shows a rate of 95 bpm with sinus rhythm. Laboratory studies: As stated above and show below. Imaging studies: See below. Radiographic imaging was reviewed by myself Consultation(s): I discussed this case with Dr. Cain who is on-call for the [facility] group. ED COURSE: When family arrived they were able to give us more history. The patient's last known well time was noon today. Procedures: none Critical Care: I have personally spent greater than 40 minutes of critical care time in the direct management of this patient. This includes bedside care, interpretation of diagnostic studies, and testing, discussion with consultants, patient, and family members, and other required patient management activities. This 40 minutes is in excess of all separately billable procedures. Past Med/Surg History Problem List (Updated 12/30/24 @ 23:10 by Palomo Estrella DO) Bilateral carotid artery disease (Acute) Urinary tract infection (Acute) Acute non-ST elevation myocardial infarction (NSTEMI) (Acute) Stroke-like symptom (Acute) Acute alteration in mental status (Acute) Discitis of thoracolumbar region Failure to thrive in adult Parainfluenza infection Acute hypoxic respiratory failure (Acute) AMS (altered mental status) (Acute) Multifocal pneumonia (Acute) Sepsis (Acute) Severe protein-calorie malnutrition VRE (vancomycin-resistant Enterococci) infection Endocarditis Bacteremia Osteomyelitis Lumbar stress fracture Infection due to vancomycin resistant Enterococcus faecium Gram-positive bacteremia Leukocytosis (Acute) Back pain (Acute) Hematuria Urinary retention Recurrent Clostridioides difficile diarrhea Abnormal CT scan, colon Aneurysm of aortic arch Depression with anxiety (Chronic) Obstructive sleep apnea (Chronic) Polyneuropathy (Chronic) Renal cyst, acquired (Acute) Seizure disorder (Chronic) Sensorineural hearing loss (SNHL) of both ears (Acute) Dyslipidemia BPH (benign prostatic hyperplasia) PAC (premature atrial contraction) Facet arthritis, degenerative, L5-S1 level, lumbosacral spine Hyponatremia Bicuspid aortic valve Vitamin D deficiency Dementia (Acute) Ambulatory dysfunction (Acute) Anemia Hypertension Medical History Esophageal candidiasis Fracture of femoral neck, left, closed Bladder stones Low back pain BPPV (benign paroxysmal positional vertigo) Family history of prostate cancer 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 difficile colitis Coronary artery disease involving autologous artery coronary bypass graft Gross hematuria History of bicuspid aortic valve History of TIA (transient ischemic attack) SEPTEMBER 14, 2018 - (USUALLY TIA OCCURS 1X PER YR/STARTED 5 YR AGO)/DR FARRELL History of stroke 2012 - RESIDUAL: STABILITY ISSUE History of anesthesia reaction WITH HERNIA SURGERY ([place]) HAD TROUBLE WAKING UP Lyme disease Seizure X1 OR 2 - WHEN TX FOR STROKE IN 2012/ DR FARRELL Surgical History S/P hip hemiarthroplasty History of aortic valve replacement History of appendectomy (03/16/13) History of colonoscopy History of hernia surgery X2 History of repair of right rotator cuff H/O aortic valve replacement 2014 - AND BICUSPID VALVE REPLACED AT SAME TIME PER PT REPORT /"OPEN HEART" DENIES 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 H/O aortic aneurysm repair Family History Mother , age 70 of lung cancer Lung cancer COPD (chronic obstructive pulmonary disease) Father , age 91 of prostate cancer Prostate cancer Coronary heart disease Myocardial infarction Family/Other Breast cancer Cancer Other Heart disease No family history of adverse response to anesthesia No family history of bleeding disorder Social History Smoking Status: Unknown if ever smoked Second Hand Exposure: No; Do You Dip or Chew Tobacco: No; Hx Alcohol Use: No Hx Substance Use: No Preferred Language: Irish Communication Ability: Effective Communication Ability Comment: , Roxana Lopze, is POA. Visual Impairment: No Limitations Hearing Ability: Normal Human Capital Analyst Required: No Beliefs That Will Affect Care: None marital status: Current Living Situation: Snf current occupational status: retired Feels Safe at Home: Yes Assistive Devices: Wheelchair Allergies Allergies Allergy/AdvReac Type Severity Reaction Status Date / Time codeine AdvReac Intermediate GI SYMPTOMS Verified 10/26/24 15:47 Opioids - Morphine Analogues AdvReac Intermediate Vomiting Verified 10/26/24 15:47 Opioids-Meperidine and AdvReac Intermediate Vomiting Verified 10/26/24 15:47 Related Opioids-Methadone and Related AdvReac Intermediate Vomiting Verified 10/26/24 15:47 oxycodone [From Percocet] AdvReac Intermediate n/v Verified 10/26/24 15:47 Anesthesia AdvReac Severe Vomiting Uncoded 10/26/24 15:47 Home Meds Home Medications Medication Instructions Recorded Confirmed cranberry 500 mg capsule 500 mg PO QDD 12/05/23 12/30/24 mirabegron 25 mg tablet,extended 25 mg PO QAM 09/12/24 12/30/24 release 24 hr (Myrbetriq) Lactobacillus rhamnosus GG 10 1 cap PO QAM 10/26/24 12/30/24 billion cell capsule acetaminophen 325 mg tablet 650 mg PO Q4H PRN PAIN/FEVER >100F 10/26/24 12/30/24 (Tylenol) acetaminophen 325 mg tablet 650 mg PO TID 10/26/24 12/30/24 (Tylenol) lidocaine 4 % topical patch 1 patch topical DAILY 10/26/24 12/30/24 aspirin 81 mg chewable tablet 81 mg PO QAM 12/30/24 12/30/24 cholecalciferol (vitamin D3) 25 25 mcg PO QAM 12/30/24 12/30/24 mcg (1,000 unit) tablet (Vitamin D3) ferrous sulfate 325 mg (65 mg 325 mg PO BID 12/30/24 12/30/24 iron) tablet menthol 0.44 %-zinc oxide 20.6 % 1 applic topical . NEEDED PRN 12/30/24 12/30/24 topical ointment (Calmoseptine) incontinent episodes menthol 0.44 %-zinc oxide 20.6 % 1 applic topical QS 12/30/24 12/30/24 topical ointment (Calmoseptine) omadacycline 150 mg tablet (Nuzyra) 300 mg PO QAM 12/30/24 12/30/24 pantoprazole 40 mg tablet,delayed 40 mg PO QAM 12/30/24 12/30/24 release (Protonix) simethicone 80 mg chewable tablet 80 mg PO Q6 PRN Abdominal 12/30/24 12/30/24 Distention vancomycin 50 mg/mL oral solution 125 mg PO DAILY 12/30/24 12/30/24 Previous Rx's Medication Instructions Recorded folic acid 1 mg tablet 1 mg PO QAM 30 days #30 tabs 11/09/24 multivitamin with minerals 1 tab PO DAILY #30 tabs 11/09/24 (Multiple Vitamin-Minerals tablet) Results & Data (ED) Vital Signs Vital Signs - 24 hr 12/30/24 19:49 12/30/24 19:51 12/30/24 19:55 Temperature 36.7 C Temperature Source Rectal Pulse Rate 90 92 H 89 Pulse Rate from SpO2 Sensor 91 H Respiratory Rate 10 L Respiratory Effort / Characteristics Non-Labored Spontaneous Respiratory Depth Shallow Respiratory Pattern Bradypnea Blood Pressure 123/78 116/76 Blood Pressure Mean 93 89 Blood Pressure Position Lying Pulse Oximetry 95 96 Oxygen Delivery Method Room Air Sepsis Recent Fever Within 48 Hours Yes Sepsis New/Unexplained Change in Mental Status Yes Sepsis Action Taken by Nursing No Action Required 12/30/24 20:00 12/30/24 20:30 12/30/24 20:30 Temperature Temperature Source Pulse Rate 86 Pulse Rate from SpO2 Sensor 84 Respiratory Rate Respiratory Effort / Characteristics Respiratory Depth Respiratory Pattern Blood Pressure 116/76 111/73 111/73 Blood Pressure Mean 89 85 85 Blood Pressure Position Pulse Oximetry 96 Oxygen Delivery Method Sepsis Recent Fever Within 48 Hours Sepsis New/Unexplained Change in Mental Status Sepsis Action Taken by Nursing 12/30/24 20:35 12/30/24 20:35 12/30/24 20:45 Temperature Temperature Source Pulse Rate Pulse Rate from SpO2 Sensor Respiratory Rate Respiratory Effort / Characteristics Respiratory Depth Respiratory Pattern Blood Pressure 108/72 108/72 121/74 Blood Pressure Mean 91 91 86 Blood Pressure Position Pulse Oximetry Oxygen Delivery Method Sepsis Recent Fever Within 48 Hours Sepsis New/Unexplained Change in Mental Status Sepsis Action Taken by Nursing 12/30/24 21:00 12/30/24 21:15 12/30/24 21:30 Temperature Temperature Source Pulse Rate 89 92 H 90 Pulse Rate from SpO2 Sensor 88 92 H Respiratory Rate Respiratory Effort / Characteristics Respiratory Depth Respiratory Pattern Blood Pressure 121/79 130/80 123/81 Blood Pressure Mean 93 92 100 Blood Pressure Position Pulse Oximetry 100 94 100 Oxygen Delivery Method Room Air Room Air Room Air Sepsis Recent Fever Within 48 Hours Sepsis New/Unexplained Change in Mental Status Sepsis Action Taken by Nursing 12/30/24 21:48 12/30/24 22:00 Temperature Temperature Source Pulse Rate 92 H 95 H Pulse Rate from SpO2 Sensor 90 95 H Respiratory Rate Respiratory Effort / Characteristics Respiratory Depth Respiratory Pattern Blood Pressure 122/84 131/87 Blood Pressure Mean 96 101 Blood Pressure Position Pulse Oximetry 99 95 Oxygen Delivery Method Room Air Room Air Sepsis Recent Fever Within 48 Hours Sepsis New/Unexplained Change in Mental Status Sepsis Action Taken by Snf Medications Current Medication List: was personally reviewed by me Laboratory Data Attestation: I reviewed the patient's lab results. 12/30/24 19:56 12/30/24 19:56 Lab Results 12/30/24 12/30/24 12/30/24 Range/Units 19:56 19:57 20:39 WBC 9.51 (4.8-10.8) K/ul RBC 3.53 L (4.70-6.10) M/uL Hgb 10.3 L (14.0-18.0) g/dl POC Hgb 10.2 L (14.0-18.0) g/dl Hct 30.5 L (42.0-52.0) % POC Hct 30 L (42-52) % MCV 86.4 (80.0-100.0) fL MCH 29.2 (25.0-34.0) pg MCHC 33.8 (32.0-36.0) g/dL RDW Std Deviation 53.2 H (36.4-46.3) fL RDW Coeff of Stormy 16.8 H (11.5-14.5) % Plt Count 172 (130-400) K/uL MPV 9.3 L (9.4-12.4) fL Immature Gran % (Auto) 0.3 % Neut % (Auto) 73.9 % Lymph % (Auto) 14.0 % [place] % (Auto) 10.8 % Eos % (Auto) 0.6 % Baso % (Auto) 0.4 % Neut # (Auto) 7.02 H (1.40-6.50) K/uL Lymph # (Auto) 1.33 (1.20-3.40) K/uL [place] # (Auto) 1.03 H (0.11-0.59) K/uL Eos # (Auto) 0.06 (0.00-0.50) K/uL Baso # (Auto) 0.04 (0.00-0.20) K/uL Immature Gran # (Auto) 0.03 (0.01-0.20) K/uL PT 11.4 (9.0-12.0) Seconds INR 1.1 (0.9-1.1) APTT 31 (21-31) Seconds PTT Ratio 1.2 VBG pH 7.43 H (7.36-7.41) VBG pCO2 38 (38-50) mmHg VBG pO2 39 mmHg VBG HCO3 25 mmol/L VBG O2 Saturation 69.8 % VBG Base Excess 0.9 mEq/L POC Sodium 132 L (135-144) mmol/L Sodium 130 L (136-145) mmol/L POC Potassium 4.3 (3.3-5.0) mmol/L Potassium 4.4 (3.5-5.1) mmol/L POC Chloride 98 L (101-112) mmol/L Chloride 101 (98-107) mmol/L Carbon Dioxide 24 (21-32) mmol/L POC Total CO2 23 L (24-31) mmol/L Anion Gap 5 (3-11) POC Anion Gap 16.0 (16-25) mmol/L POC BUN 24 H (7-18) mg/dl BUN 24 H (6-23) mg/dl Creatinine 0.75 (0.6-1.4) mg/dl POC Creatinine 1.0 (0.6-1.3) mg/dl Est Cr Clr Drug Dosing 62.0 ml/min eGFR 88.98 BUN/Creatinine Ratio 32.0 H (10-20) Glucose 128 H (70-99(Fasting)) mg/dl POC Glucose (other) 126 H (70-99) mg/dl Lactate 1.2 (0.4-2.0) mmol/L Calcium 8.2 L (8.6-10.3) mg/dl POC Ioniz Calcium Kwasi 1.13 (1.12-1.32) mmol/l Magnesium 1.8 (1.7-2.4) mg/dl Total Bilirubin 0.6 (0.2-1.0) mg/dl Direct Bilirubin 0.1 (0-0.2) mg/dl AST 70 H (13-39) U/L ALT 35 (7-52) U/L Alkaline Phosphatase 109 H (34-104) U/L Troponin I High Sens 7782.7 H* (0-20) pg/ml Total Protein 6.3 (6.0-8.3) gm/dl Albumin 2.7 L (3.4-5.0) gm/dl Procalcitonin 0.30 (0-0.5) ng/ml Urine Color Urine Appearance (Clear) Urine pH (4.5-7.5) Ur Specific Fraser (1.000-1.030) Urine Protein (Negative) Urine Glucose (UA) (Negative) Urine Ketones (Negative) Urine Blood (Negative) Urine Nitrite (Negative) Urine Bilirubin (Negative) Urine Urobilinogen (Negative) Ur Leukocyte Esterase (Negative) Urine WBC (Auto) (0-5) /hpf Urine RBC (Auto) (0-2) /hpf U Hyaline Cast (Auto) (0-2) /lpf U Epithel Cells (Auto) (0-2) /hpf Urine Bacteria (Auto) (None Seen) Calcium Oxalate Crystal (None Prsent) Urine Yeast (None Prsent) Urine Comment 12/30/24 12/30/24 Range/Units 21:37 21:40 WBC (4.8-10.8) K/ul RBC (4.70-6.10) M/uL Hgb (14.0-18.0) g/dl POC Hgb (14.0-18.0) g/dl Hct (42.0-52.0) % POC Hct (42-52) % MCV (80.0-100.0) fL MCH (25.0-34.0) pg MCHC (32.0-36.0) g/dL RDW Std Deviation (36.4-46.3) fL RDW Coeff of Stormy (11.5-14.5) % Plt Count (130-400) K/uL MPV (9.4-12.4) fL Immature Gran % (Auto) % Neut % (Auto) % Lymph % (Auto) % [place] % (Auto) % Eos % (Auto) % Baso % (Auto) % Neut # (Auto) (1.40-6.50) K/uL Lymph # (Auto) (1.20-3.40) K/uL [place] # (Auto) (0.11-0.59) K/uL Eos # (Auto) (0.00-0.50) K/uL Baso # (Auto) (0.00-0.20) K/uL Immature Gran # (Auto) (0.01-0.20) K/uL PT (9.0-12.0) Seconds INR (0.9-1.1) APTT (21-31) Seconds PTT Ratio VBG pH (7.36-7.41) VBG pCO2 (38-50) mmHg VBG pO2 mmHg VBG HCO3 mmol/L VBG O2 Saturation % VBG Base Excess mEq/L POC Sodium (135-144) mmol/L Sodium (136-145) mmol/L POC Potassium (3.3-5.0) mmol/L Potassium (3.5-5.1) mmol/L POC Chloride (101-112) mmol/L Chloride (98-107) mmol/L Carbon Dioxide (21-32) mmol/L POC Total CO2 (24-31) mmol/L Anion Gap (3-11) POC Anion Gap (16-25) mmol/L POC BUN (7-18) mg/dl BUN (6-23) mg/dl Creatinine (0.6-1.4) mg/dl POC Creatinine (0.6-1.3) mg/dl Est Cr Clr Drug Dosing ml/min eGFR BUN/Creatinine Ratio (10-20) Glucose (70-99(Fasting)) mg/dl POC Glucose (other) (70-99) mg/dl Lactate (0.4-2.0) mmol/L Calcium (8.6-10.3) mg/dl POC Ioniz Calcium Kwasi (1.12-1.32) mmol/l Magnesium (1.7-2.4) mg/dl Total Bilirubin (0.2-1.0) mg/dl Direct Bilirubin (0-0.2) mg/dl AST (13-39) U/L ALT (7-52) U/L Alkaline Phosphatase (34-104) U/L Troponin I High Sens 8266.1 H* (0-20) pg/ml Total Protein (6.0-8.3) gm/dl Albumin (3.4-5.0) gm/dl Procalcitonin (0-0.5) ng/ml Urine Color Yellow Urine Appearance Cloudy A (Clear) Urine pH 7.0 (4.5-7.5) Ur Specific [place] > 1.045 H (1.000-1.030) Urine Protein 1+ H (Negative) Urine Glucose (UA) Negative (Negative) Urine Ketones Negative (Negative) Urine Blood 2+ H (Negative) Urine Nitrite Positive A (Negative) Urine Bilirubin Negative (Negative) Urine Urobilinogen Negative (Negative) Ur Leukocyte Esterase 2+ H (Negative) Urine WBC (Auto) >50 H (0-5) /hpf Urine RBC (Auto) >20 H (0-2) /hpf U Hyaline Cast (Auto) 6-10 H (0-2) /lpf U Epithel Cells (Auto) 0-2 (0-2) /hpf Urine Bacteria (Auto) 2+ H (None Seen) Calcium Oxalate Crystal Present A (None Prsent) Urine Yeast Present A (None Prsent) Urine Comment Administered Medications Piperacillin Sod/Tazobactam Sod (Zosyn) 4.5 gm in 100 mls @ 200 mls/hr IV NOW STA; Protocol Stop: 12/30/24 23:10 Last Admin: 12/30/24 22:51 Dose: 200 mls/hr Documented By: JACKIE Discontinued Medications Sodium Chloride (Nss) 1,000 mls @ 999 mls/hr IV .Q1H1M ONE Stop: 12/30/24 20:56 Last Admin: 12/30/24 20:42 Dose: 999 mls/hr Documented By: JACKIE Ioversol (Optiray 320 125ml) 117 ml IV ONCE ONE Stop: 12/30/24 20:26 Last Admin: 12/30/24 20:25 Dose: 117 ml Documented By: NORMAN Imaging Data Attestation: I personally reviewed and interpreted this imaging study as follows: My Impression: 1 view chest x-ray was obtained in the emergency department. My interpretation is no free air or definite infiltrate, final report below. Radiologist's Impression: Chest X-Ray 12/30/24 19:55 Exam(s): XR CXR 1 VIEW EXAM: XR Chest, 1 View CLINICAL HISTORY: Reason for exam: Sepsis. TECHNIQUE: Frontal view of the chest. COMPARISON: 11/01/2024 FINDINGS: Lungs: Lungs are well inflated with slightly prominent interstitial markings. The previously seen edema has resolved. No acute infiltrate or effusion identified. Pleural space: Unremarkable. No pneumothorax. Heart: See below. Mediastinum: Unremarkable. Normal mediastinal contour. 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 The cardiac silhouette is mildly enlarged, unchanged. No acute fracture. Upper abdomen: Unremarkable as visualized. No pneumoperitoneum under the diaphragm. IMPRESSION: 1. Lungs are well inflated with slightly prominent interstitial markings. The previously seen edema has resolved. No acute infiltrate or effusion identified. 2. 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 The cardiac silhouette is mildly enlarged, unchanged. Electronically signed by: Slick Cain MD 12/30/24 20:[address] 12/30/24 19:55 Exam(s): CT HEAD Without Contrast EXAM: CT Head Without Intravenous Contrast CLINICAL HISTORY: Reason for exam: stroke. TECHNIQUE: Axial computed tomography images of the head/brain without intravenous contrast. CTDI is 36 mGy and DLP is 1165 mGy-cm. Automated exposure control was utilized for the study. A dose lowering technique was utilized adhering to the principles of ALARA. COMPARISON: No relevant prior studies available. FINDINGS: Brain: Mild cerebral atrophy and periventricular white matter low density consistent with chronic small vessel disease and/or senescent changes. No acute large vessel infarct or intracranial hemorrhage is seen. Ventricles: Mildly dilated. No mass or hemorrhage. Bones/joints: Unremarkable. No acute fracture. Soft tissues: Unremarkable. Sinuses: Unremarkable as visualized. No acute sinusitis. Mastoid air cells: Unremarkable as visualized. No mastoid effusion. IMPRESSION: Mild cerebral atrophy and periventricular white matter low density consistent with chronic small vessel disease and/or senescent changes. No acute large vessel infarct or intracranial hemorrhage is seen. Electronically signed by: Slick Cain MD 12/30/24 21:00 PM Head CTA 12/30/24 19:55 Exam(s): CTA HEAD With Contrast EXAM: CT Head With Intravenous Contrast CLINICAL HISTORY: Reason for exam: stroke. TECHNIQUE: Axial computed tomographic images of the head with intravenous contrast. CTDI is the 36 mGy and DLP is 1165 mGy-cm. Automated exposure control was utilized for the study. A dose lowering technique was utilized adhering to the principles of ALARA. CONTRAST: Information not available. Critical stroke study. COMPARISON: Precontrast study from today. FINDINGS: Right internal carotid artery: Calcified plaque causing 20% stenosis of the distal right internal carotid artery. No aneurysm. Right anterior cerebral artery: Unremarkable. No occlusion or significant stenosis. No aneurysm. Right middle cerebral artery: Unremarkable. No occlusion or significant stenosis. No aneurysm. Right posterior cerebral artery: Unremarkable. No occlusion or significant stenosis. No aneurysm. Right vertebral artery: The distal vertebral arteries are tortuous but widely patent. Left internal carotid artery: Calcified plaque causing 25% stenosis of the distal left internal carotid artery. No aneurysm. Left anterior cerebral artery: Unremarkable. No occlusion or significant stenosis. No aneurysm. Left middle cerebral artery: Unremarkable. No occlusion or significant stenosis. No aneurysm. Left posterior cerebral artery: Unremarkable. No occlusion or significant stenosis. No aneurysm. Left vertebral artery: See above. Basilar artery: The basilar artery is mildly tortuous but widely patent. No occlusion or significant stenosis. No aneurysm. IMPRESSION: 1. Up to 25% stenosis of the distal internal carotid arteries bilaterally. 2. The anterior, middle, and posterior cerebral arteries are within normal limits. No aneurysm, vascular malformation, or large vessel occlusion is identified. Electronically signed by: Slick Cain MD 12/30/24 21:09 PM Neck CTA 12/30/24 19:55 Exam(s): CTA NECK With Contrast EXAM: CT Neck With Intravenous Contrast CLINICAL HISTORY: Reason for exam: Stroke. TECHNIQUE: Routine carotid CT protocol was performed with intravenous contrast. NASCET criteria using the distal ICAs for comparison were used for evaluation of stenoses. CTDI is 36 mGy and DLP is 1165 mGy-cm. Automated exposure control was utilized for the study. A dose lowering technique was utilized adhering to the principles of ALARA. CONTRAST: Information not available. Critical stroke study. COMPARISON: None. FINDINGS: VASCULATURE: Right common carotid artery: Calcified plaque causing 30% stenosis of the distal right common carotid artery. No dissection. Right internal carotid artery: 30% stenosis of the proximal right internal carotid artery. The distal right internal carotid artery is tortuous but widely patent. No dissection. Right external carotid artery: Unremarkable. No occlusion. Right vertebral artery: Unremarkable. No occlusion or significant stenosis. No dissection. Left common carotid artery: 25% stenosis of the distal left common carotid artery. No dissection. Left internal carotid artery: 20% stenosis of the proximal left internal carotid artery. The distal left internal carotid artery is tortuous but widely patent. No dissection. Left external carotid artery: Unremarkable. No occlusion. Left vertebral artery: Unremarkable. No occlusion or significant stenosis. No dissection. Aorta: The aortic arch is mildly calcified but nondilated. There is no aneurysm or dissection. NECK: Bones/joints: Mild multilevel degenerative disc disease and facet arthrosis throughout the cervical spine. No acute fracture or subluxation is seen. Soft tissues: Unremarkable. Lung apices: Clear. CAROTID STENOSIS REFERENCE USING NASCET CRITERIA: % ICA stenosis = (1 - narrowest ICA diameter/diameter of distal cervical ICA) x 100. Mild - <50% stenosis. Moderate - 50-69% stenosis. Severe - 70-94% stenosis. Near occlusion - 95-99% stenosis. Occluded - 100% stenosis. IMPRESSION: 1. 30% stenosis of the proximal right internal carotid artery. 2. 20% stenosis of the proximal left internal carotid artery. Electronically signed by: Slick Cain MD 12/30/24 21:03 PM Abdomen/Pelvis CT 12/30/24 20:01 Exam(s): CT ABDOMEN + PELVIS With Contrast IV Amt: 119ml optiray 320 EXAM: CT Abdomen and Pelvis With Intravenous Contrast CLINICAL HISTORY: Reason for exam: ams. TECHNIQUE: Axial computed tomography images of the abdomen and pelvis with intravenous contrast. CTDI is 36 mGy and DLP is 1165 mGy-cm. Automated exposure control was utilized for the study. A dose lowering technique was utilized adhering to the principles of ALARA. CONTRAST: Patient received 119ml optiray 320 of IV contrast COMPARISON: No relevant prior studies available. FINDINGS: Lung bases: Unremarkable. No mass. No consolidation. ABDOMEN: Liver: Unremarkable. No mass. Gallbladder and bile ducts: Unremarkable. No calcified stones. No ductal dilation. Pancreas: Unremarkable. No mass. No ductal dilation. Spleen: Unremarkable. No splenomegaly. Adrenals: Unremarkable. No mass. Kidneys and ureters: 2.9 cm simple cysts in the right kidney. No follow-up is required. No hydronephrosis. Stomach and bowel: Bowel loops are nondilated. There is a relatively large amount of stool in the right colon measuring up to 7 cm suggesting possible mild constipation. No pneumoperitoneum, free fluid, or acute inflammatory changes are seen involving the bowel. No mucosal thickening. PELVIS: Appendix: No findings to suggest acute appendicitis. Bladder: The urinary bladder is decompressed by Gamboa catheter and otherwise unremarkable. Reproductive: Unremarkable as visualized. ABDOMEN and PELVIS: Intraperitoneal space: See above. Bones/joints: Metal artifact from left hip arthroplasty. There are [id number] osteoarthritic changes of the right hip. No hip or pelvic fracture is seen. 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 No acute fracture is seen. No dislocation. Soft tissues: Unremarkable. Vasculature: The abdominal aorta is moderately calcified but nondilated. There is no aneurysm or dissection. Lymph nodes: Unremarkable. No enlarged lymph nodes. IMPRESSION: Bowel loops are nondilated. There is a relatively large amount of stool in the right colon measuring up to 7 cm suggesting possible mild constipation. No pneumoperitoneum, free fluid, or acute inflammatory changes are seen involving the bowel. Electronically signed by: Slick Cain MD 12/30/24 21:37 PM Chest CTA 12/30/24 20:01 Exam(s): CTA CHEST IV Amt: 119ml optiray 320 EXAM: CT Angiography Chest With Intravenous Contrast CLINICAL HISTORY: Reason for exam: PE. TECHNIQUE: Axial computed tomographic angiography images of the chest with intravenous contrast. CTDI is 36 mGy and DLP is 1165 mGy-cm. Automated exposure control was utilized for the study. A dose lowering technique was utilized adhering to the principles of ALARA. MIP reconstructed images were created and reviewed. COMPARISON: No relevant prior studies available. FINDINGS: Pulmonary arteries: The pulmonary arterial tree is well opacified with contrast. No pulmonary emboli are identified. Aorta: The thoracic aorta is mildly calcified. There is a prosthetic aortic valve with 4.5 cm ectasia of the aortic root. There are calcified suture lines indicating previous surgical repair of the ascending aorta without residual aneurysm or dissection. The descending thoracic aorta is nondilated. Lungs: Scattered linear densities in both lung bases consistent with subsegmental atelectasis. Some component of edema and fibrosis may also be present. No mass. Pleural space: Unremarkable. No significant effusion. No pneumothorax. Heart: The heart is mildly enlarged. No pericardial effusion is seen. No evidence of RV dysfunction. Bones/joints: Mild multilevel degenerative changes throughout the spine. No acute fracture or destructive bone lesion is seen. No dislocation. Soft tissues: Unremarkable. Lymph nodes: Unremarkable. No enlarged lymph nodes. IMPRESSION: 1. The thoracic aorta is mildly calcified. There is a prosthetic aortic valve with 4.5 cm ectasia of the aortic root. There are calcified suture lines indicating previous surgical repair of the ascending aorta without residual aneurysm or dissection. The descending thoracic aorta is nondilated. 2. Scattered linear densities in both lung bases consistent with subsegmental atelectasis. Some component of edema and fibrosis may also be present. 3. The pulmonary arterial tree is well opacified with contrast. No pulmonary emboli are identified. Electronically signed by: Slick Cain MD 12/30/24 21:44 PM Discharge Plan Visit Data Chief Complaint: Unresponsive Stated Complaint: Unresponsive, AMS ED Provider: Palomo Estrella Discharge Problem: Acute alteration in mental status, Stroke-like symptom, Acute non-ST elevation myocardial infarction (NSTEMI), Urinary tract infection, Bilateral carotid artery disease Patient Disposition: Being Evaluated by Hospitalist Condition: Fair Forms Stand Alone Forms: My [facility] Prescriptions Prescriptions: No Action mirabegron [Myrbetriq] 25 mg tablet extended release 24 hr 25 mg PO QAM acetaminophen [Tylenol] 325 mg Tablet 650 mg PO Q4H MDD 3 GRAMS/24 HOURS PRN (Reason: PAIN/FEVER >100F) Rx Instructions: be aware of routine order acetaminophen [Tylenol] 325 mg Tablet 650 mg PO TID MDD 3 GRAMS/24 HOURS lidocaine 4 % Adhesive Patch,Medicated 1 patch TOPICAL DAILY Rx Instructions: APPLY TO most painful area of baqck, REMOVE AFTER 12 HOURS Lactobacillus rhamnosus GG 10 billion cell Capsule 1 cap PO QAM folic acid 1 mg tablet 1 mg PO QAM 30 Days Qty: 30 5RF Multiple Vitamin-Minerals Tablet 1 tab PO DAILY Qty: 30 0RF cranberry 500 mg Capsule 500 mg PO QDD Rx Instructions: administer with meal aspirin [Aspirin Child] 81 mg Tablet,Chewable 81 mg PO QAM pantoprazole [Protonix] 40 mg tablet,delayed release (DR/EC) 40 mg PO QAM cholecalciferol (vitamin D3) [Vitamin D3] 25 mcg (1,000 unit) tablet 25 mcg PO QAM ferrous sulfate 325 mg (65 mg iron) Tablet 325 mg PO BID Rx Instructions: give with food simethicone 80 mg Tablet,Chewable 80 mg PO Q6 PRN (Reason: Abdominal Distention) Nuzyra 150 mg tablet 300 mg PO QAM Rx Instructions: take on an empty stomach 2 hours prior to food for 89 days 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 NEEDED PRN (Reason: incontinent episodes) menthol-zinc oxide [Calmoseptine] 0.44-20.6 % Ointment 1 applic TOPICAL QS Rx Instructions: apply to buttocks and scrotum every shift for excoriation Referrals Referrals: Shannan Miranda DO [Primary Care Provider] -
[2024-12-30 20:11] LABS: Hematocrit (blood only) 30.5 % (42.0-52.0); Hemoglobin 10.3 g/dl (14.0-18.0); Immature Granulocytes # (auto) 0.03 K/uL (0.01-0.20); Immature Granulocytes % (auto) 0.3 %; Mean Corpuscular Hemoglobin 29.2 pg (25.0-34.0); Mean Corpuscular Volume 86.4 fL (80.0-100.0); Platelet Count 172 K/uL (130-400); RDW Standard Deviation 53.2 fL (36.4-46.3); Red Blood Count 3.53 M/uL (4.70-6.10); White Blood Count 9.51 K/ul (4.8-10.8)
[2024-12-30] MEDS: OPTIRAY 320 125ml IV ONE (20:25)
[2024-12-30 20:40] LABS: Alanine Aminotransferase 35.0 U/L (7-52); Alkaline Phosphatase 109.0 U/L (34-104); Anion Gap 5.0 (3-11); Bilirubin,Total 0.6 mg/dl (0.2-1.0); Blood Urea Nitrogen 24.0 mg/dl (6-23); Calcium 8.2 mg/dl (8.6-10.3); Carbon Dioxide 24.0 mmol/L (21-32); Chloride 101.0 mmol/L (98-107); Creatinine Clr Calc Pharmacy 62.0 ml/min; Glucose 128.0 mg/dl (70-99(Fasting)); INR 1.1 (0.9-1.1); Magnesium 1.8 mg/dl (1.7-2.4); Partial Thromboplastin Time 31 Seconds (21-31); Potassium 4.4 mmol/L (3.5-5.1); Prothrombin Time 11.4 Seconds (9.0-12.0); Sodium 130.0 mmol/L (136-145); Total Protein 6.3 gm/dl (6.0-8.3)
--- NOTE | 2024-12-30 20:41 | XRay Report ---
Exam(s): XR CXR 1 VIEW EXAM: XR Chest, 1 View CLINICAL HISTORY: Reason for exam: Sepsis. TECHNIQUE: Frontal view of the chest. COMPARISON: 11/01/2024 FINDINGS: Lungs: Lungs are well inflated with slightly prominent interstitial markings. The previously seen edema has resolved. No acute infiltrate or effusion identified. Pleural space: Unremarkable. No pneumothorax. Heart: See below. Mediastinum: Unremarkable. Normal mediastinal contour. 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 The cardiac silhouette is mildly enlarged, unchanged. No acute fracture. Upper abdomen: Unremarkable as visualized. No pneumoperitoneum under the diaphragm. IMPRESSION: 1. Lungs are well inflated with slightly prominent interstitial markings. The previously seen edema has resolved. No acute infiltrate or effusion identified. 2. 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 The cardiac silhouette is mildly enlarged, unchanged. Electronically signed by: Slick Cain MD 12/30/24 20:40 PM
[2024-12-30] MEDS: SODIUM CHLORIDE 0.9% 1,000 ML IV ONE (20:42)
[2024-12-30 20:49] LABS: Base Excess VBG 0.9 mEq/L; HCO3 VBG 25 mmol/L; Oxygen Saturation VBG 69.8 %; PCO2 VBG 38 mmHg (38-50); PO2 VBG 39 mmHg; pH VBG 7.43 (7.36-7.41)
--- NOTE | 2024-12-30 21:01 | CT Scan Report ---
Exam(s): CT HEAD Without Contrast EXAM: CT Head Without Intravenous Contrast CLINICAL HISTORY: Reason for exam: stroke. TECHNIQUE: Axial computed tomography images of the head/brain without intravenous contrast. CTDI is 36 mGy and DLP is 1165 mGy-cm. Automated exposure control was utilized for the study. A dose lowering technique was utilized adhering to the principles of ALARA. COMPARISON: No relevant prior studies available. FINDINGS: Brain: Mild cerebral atrophy and periventricular white matter low density consistent with chronic small vessel disease and/or senescent changes. No acute large vessel infarct or intracranial hemorrhage is seen. Ventricles: Mildly dilated. No mass or hemorrhage. Bones/joints: Unremarkable. No acute fracture. Soft tissues: Unremarkable. Sinuses: Unremarkable as visualized. No acute sinusitis. Mastoid air cells: Unremarkable as visualized. No mastoid effusion. IMPRESSION: Mild cerebral atrophy and periventricular white matter low density consistent with chronic small vessel disease and/or senescent changes. No acute large vessel infarct or intracranial hemorrhage is seen. Electronically signed by: Slick Cain MD 12/30/24 21:00 PM
--- NOTE | 2024-12-30 21:04 | CT Scan Report ---
Exam(s): CTA NECK With Contrast EXAM: CT Neck With Intravenous Contrast CLINICAL HISTORY: Reason for exam: Stroke. TECHNIQUE: Routine carotid CT protocol was performed with intravenous contrast. NASCET criteria using the distal ICAs for comparison were used for evaluation of stenoses. CTDI is 36 mGy and DLP is 1165 mGy-cm. Automated exposure control was utilized for the study. A dose lowering technique was utilized adhering to the principles of ALARA. CONTRAST: Information not available. Critical stroke study. COMPARISON: None. FINDINGS: VASCULATURE: Right common carotid artery: Calcified plaque causing 30% stenosis of the distal right common carotid artery. No dissection. Right internal carotid artery: 30% stenosis of the proximal right internal carotid artery. The distal right internal carotid artery is tortuous but widely patent. No dissection. Right external carotid artery: Unremarkable. No occlusion. Right vertebral artery: Unremarkable. No occlusion or significant stenosis. No dissection. Left common carotid artery: 25% stenosis of the distal left common carotid artery. No dissection. Left internal carotid artery: 20% stenosis of the proximal left internal carotid artery. The distal left internal carotid artery is tortuous but widely patent. No dissection. Left external carotid artery: Unremarkable. No occlusion. Left vertebral artery: Unremarkable. No occlusion or significant stenosis. No dissection. Aorta: The aortic arch is mildly calcified but nondilated. There is no aneurysm or dissection. NECK: Bones/joints: Mild multilevel degenerative disc disease and facet arthrosis throughout the cervical spine. No acute fracture or subluxation is seen. Soft tissues: Unremarkable. Lung apices: Clear. CAROTID STENOSIS REFERENCE USING NASCET CRITERIA: % ICA stenosis = (1 - narrowest ICA diameter/diameter of distal cervical ICA) x 100. Mild - <50% stenosis. Moderate - 50-69% stenosis. Severe - 70-94% stenosis. Near occlusion - 95-99% stenosis. Occluded - 100% stenosis. IMPRESSION: 1. 30% stenosis of the proximal right internal carotid artery. 2. 20% stenosis of the proximal left internal carotid artery. Electronically signed by: Slick Cain MD 12/30/24 21:03 PM
--- NOTE | 2024-12-30 21:10 | CT Scan Report ---
Exam(s): CTA HEAD With Contrast EXAM: CT Head With Intravenous Contrast CLINICAL HISTORY: Reason for exam: stroke. TECHNIQUE: Axial computed tomographic images of the head with intravenous contrast. CTDI is the 36 mGy and DLP is 1165 mGy-cm. Automated exposure control was utilized for the study. A dose lowering technique was utilized adhering to the principles of ALARA. CONTRAST: Information not available. Critical stroke study. COMPARISON: Precontrast study from today. FINDINGS: Right internal carotid artery: Calcified plaque causing 20% stenosis of the distal right internal carotid artery. No aneurysm. Right anterior cerebral artery: Unremarkable. No occlusion or significant stenosis. No aneurysm. Right middle cerebral artery: Unremarkable. No occlusion or significant stenosis. No aneurysm. Right posterior cerebral artery: Unremarkable. No occlusion or significant stenosis. No aneurysm. Right vertebral artery: The distal vertebral arteries are tortuous but widely patent. Left internal carotid artery: Calcified plaque causing 25% stenosis of the distal left internal carotid artery. No aneurysm. Left anterior cerebral artery: Unremarkable. No occlusion or significant stenosis. No aneurysm. Left middle cerebral artery: Unremarkable. No occlusion or significant stenosis. No aneurysm. Left posterior cerebral artery: Unremarkable. No occlusion or significant stenosis. No aneurysm. Left vertebral artery: See above. Basilar artery: The basilar artery is mildly tortuous but widely patent. No occlusion or significant stenosis. No aneurysm. IMPRESSION: 1. Up to 25% stenosis of the distal internal carotid arteries bilaterally. 2. The anterior, middle, and posterior cerebral arteries are within normal limits. No aneurysm, vascular malformation, or large vessel occlusion is identified. Electronically signed by: Slick Cain MD 12/30/24 21:09 PM
--- NOTE | 2024-12-30 21:38 | CT Scan Report ---
Exam(s): CT ABDOMEN + PELVIS With Contrast IV Amt: 119ml optiray 320 EXAM: CT Abdomen and Pelvis With Intravenous Contrast CLINICAL HISTORY: Reason for exam: ams. TECHNIQUE: Axial computed tomography images of the abdomen and pelvis with intravenous contrast. CTDI is 36 mGy and DLP is 1165 mGy-cm. Automated exposure control was utilized for the study. A dose lowering technique was utilized adhering to the principles of ALARA. CONTRAST: Patient received 119ml optiray 320 of IV contrast COMPARISON: No relevant prior studies available. FINDINGS: Lung bases: Unremarkable. No mass. No consolidation. ABDOMEN: Liver: Unremarkable. No mass. Gallbladder and bile ducts: Unremarkable. No calcified stones. No ductal dilation. Pancreas: Unremarkable. No mass. No ductal dilation. Spleen: Unremarkable. No splenomegaly. Adrenals: Unremarkable. No mass. Kidneys and ureters: 2.9 cm simple cysts in the right kidney. No follow-up is required. No hydronephrosis. Stomach and bowel: Bowel loops are nondilated. There is a relatively large amount of stool in the right colon measuring up to 7 cm suggesting possible mild constipation. No pneumoperitoneum, free fluid, or acute inflammatory changes are seen involving the bowel. No mucosal thickening. PELVIS: Appendix: No findings to suggest acute appendicitis. Bladder: The urinary bladder is decompressed by Gamboa catheter and otherwise unremarkable. Reproductive: Unremarkable as visualized. ABDOMEN and PELVIS: Intraperitoneal space: See above. Bones/joints: Metal artifact from left hip arthroplasty. There are [id number] osteoarthritic changes of the right hip. No hip or pelvic fracture is seen. 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 No acute fracture is seen. No dislocation. Soft tissues: Unremarkable. Vasculature: The abdominal aorta is moderately calcified but nondilated. There is no aneurysm or dissection. Lymph nodes: Unremarkable. No enlarged lymph nodes. IMPRESSION: Bowel loops are nondilated. There is a relatively large amount of stool in the right colon measuring up to 7 cm suggesting possible mild constipation. No pneumoperitoneum, free fluid, or acute inflammatory changes are seen involving the bowel. Electronically signed by: Slick Cain MD 12/30/24 21:37 PM
--- NOTE | 2024-12-30 21:45 | CT Scan Report ---
Exam(s): CTA CHEST IV Amt: 119ml optiray 320 EXAM: CT Angiography Chest With Intravenous Contrast CLINICAL HISTORY: Reason for exam: PE. TECHNIQUE: Axial computed tomographic angiography images of the chest with intravenous contrast. CTDI is 36 mGy and DLP is 1165 mGy-cm. Automated exposure control was utilized for the study. A dose lowering technique was utilized adhering to the principles of ALARA. MIP reconstructed images were created and reviewed. COMPARISON: No relevant prior studies available. FINDINGS: Pulmonary arteries: The pulmonary arterial tree is well opacified with contrast. No pulmonary emboli are identified. Aorta: The thoracic aorta is mildly calcified. There is a prosthetic aortic valve with 4.5 cm ectasia of the aortic root. There are calcified suture lines indicating previous surgical repair of the ascending aorta without residual aneurysm or dissection. The descending thoracic aorta is nondilated. Lungs: Scattered linear densities in both lung bases consistent with subsegmental atelectasis. Some component of edema and fibrosis may also be present. No mass. Pleural space: Unremarkable. No significant effusion. No pneumothorax. Heart: The heart is mildly enlarged. No pericardial effusion is seen. No evidence of RV dysfunction. Bones/joints: Mild multilevel degenerative changes throughout the spine. No acute fracture or destructive bone lesion is seen. No dislocation. Soft tissues: Unremarkable. Lymph nodes: Unremarkable. No enlarged lymph nodes. IMPRESSION: 1. The thoracic aorta is mildly calcified. There is a prosthetic aortic valve with 4.5 cm ectasia of the aortic root. There are calcified suture lines indicating previous surgical repair of the ascending aorta without residual aneurysm or dissection. The descending thoracic aorta is nondilated. 2. Scattered linear densities in both lung bases consistent with subsegmental atelectasis. Some component of edema and fibrosis may also be present. 3. The pulmonary arterial tree is well opacified with contrast. No pulmonary emboli are identified. Electronically signed by: Slick Cain MD 12/30/24 21:44 PM
[2024-12-30 22:12] LABS: Appearance Urine Cloudy (Clear); Bacteria Urine Automated 2+ (None Seen); Epithelial Cell Urine Auto 0-2 /hpf (0-2); Glucose Urine UA Negative (Negative); RBC Urine Automated >20 /hpf (0-2); WBC Urine Automated >50 /hpf (0-5)
[2024-12-30] MEDS: PIPERACILLIN/TAZOBACTAM 4.5 GM/100 ML BAG IV STA (22:51)
--- NOTE | 2024-12-30 22:51 | History & Physical Report ---
Date of Service December 30, 2024 Assessment & Plan (1) Acute alteration in mental status: (2) Stroke-like symptom: (3) Urinary tract infection: (4) Back pain: (5) Dementia: Plan Pt is an 84 yo male who lives presented to ED via ambulance from [facility] for AMS and unresponsive. Pt has a PMH of dementia, HTN, HLD, hx of CVA, chronic LBP due to previous compression fx at lumbar spine, chronic indwelling martinez catheter, s/p prosthetic aortic valve (2012), s/p left SERENA (2023), recent hospital admissions for recurrent bacteremic infections and recently finished a long course of IV antibiotics. Pt is being admitted for with acute changes in mental status in the setting of fever and rigors to be treated empirically while working out possible source of infection vs CVA. #AMS/hx of recurrent bacteremia/UTI Pt presented with acute changes in mental status coinciding with fever and rigors. Preliminary blood work obtained at pt's facility shows mildly elevated WBC at 10.82 and neutrophils at 8.2. Repeat CBC with diff in ED shows WBC and neutrophils below threshold, lactate was 1.2, procal was 0.30. Blood cultures were drawn in ED- pending. UA appears positive for UTI with positive nitrites, 2+ leuk esterase, >50 WBCs, and 2+ urine bacteria. Due to pt's history of bact eremia, UTIs and gap in antibiotic coverage prior to ED visit, plan to start empiric antibiotics while awaiting urine and blood cultures - Started empiric daptomycin 600mg q24h to cover VRE and Zosyn 4.5mg q8h for gram negatives and pseudomonas due to bacterial growth in previous urine cultures - Ordered TSH and ammonia levels for further assessment into causes of AMS - Follow blood cx and urine cx - Consider ID consult if continues with AMS and/or continued fever #Stroke-like symptoms Pt is unable to follow commands or participate in NIHSS. CT Head did not show acute changes, CTA head/neck demonstrated 30% stenosis at common and internal carotids, 25 and 20% respectively on left. No other occlusions noted. Plan to order routine MRI brain with/without contrast to rule out CVA due to prior hx of CVA as well as continued AMS. - Follow up MRI brain # Dehydration Electrolytes and kidney function are normal on CMP, how ever patient appears dry with reduced urine output on INF in ED as well as dry mucus membranes - Continue IV NSS at 125mls - Monitor I/Os, - Monitor BMP with AM labs # Elevated troponin Initial troponin was 7782 and 8266 on repeat at 3h. EKG was read as sinus without acute ST changes. Last echo on 10/30/24 showed EF of 60-65%, concentric LVH and mild MR. Pt is not able to confirm or deny current chest pain symptoms but does not appear SOB or labored in breathing. He is sat'ing >90% on RA. - Will continue to trend troponin with next draw at 04oo with AM Labs - EKG as needed #Back pain - Continue scheduled tylenol IV at 1000mg q8h Chronic conditions: GERD- IV pantoprazole 40mg qd, transtion to PO with improve mental status Overactive bladder: continue martinez catheter, holding mirabegron C-diff prophylaxis- holding po vancomycin Dispo: PCU Diet: NPO while unresponsive DVT prophylaxis: SCDs Code: DNR/DNI History of Present Illness Chief Complaint: Unresponsive Primary Care Provider: Shannan Miranda DO Pt is an 84 yo male who lives presented to ED via ambulance from [facility] for AMS and unresponsive. 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 Pt has had recent hospital admissions for recurrent bacteremic infections and recently finished a long course of IV antibiotics. At bedside is pt's and daughter who provide pt history and recent events. Pt had been doing well from a cognitive and health stand point per daughter after completing his last round of IV antibiotics. Pt follows with ID in outpatient setting and was prescribed omadacycline prophylactically, which was to start after finishing IV course. However, pt was unable to obtain new med due insurance coverage until 12/26/24. Per daughter, patient had diarrhea last week which seemed to coincide with other residents from his facility having mild GI illness. This week diarrhea had cleared up, but pt had more constipating symptoms despite good appetite and eating most of his meals. This morning, facility providers noted a 101 F fever. He began complaining of more intense low back pain and yelling out due to pain. Pt takes scheduled tylenol for pain. At dinner, pt's daughter noted that pt was shaking uncontrollable and his eyes were rolling to the back of his head. He was not responding or following commands and seemed to be in and out of consciousness and no longer at his baseline cognition. Pt's daughter states that testing had been done at his facility including inflammatory markers, UA, and CBC. She states she thinks his inflammatory marker were elevated and a UTI was found. Upon arrival at ED, pt was unresponsive and not following commands. Pt has decreased respiration rate. Unable to assess NIHSS. Pt's dtr and deny any recent cough, congestion, SOB, c/o chest pain, abdominal pain, nausea, or vomiting. Pressure ulcer at his sacrum has healed per dtr, but patient has had bloody discharge from the tip of his penis due to skin breakdown related to tubing from martinez catheter. Allergies Allergy/AdvReac Type Severity Reaction Status Date / Time codeine AdvReac Intermediate GI SYMPTOMS Verified 10/26/24 15:47 Opioids - Morphine Analogues AdvReac Intermediate Vomiting Verified 10/26/24 15:47 Opioids-Meperidine and AdvReac Intermediate Vomiting Verified 10/26/24 15:47 Related Opioids-Methadone and Related AdvReac Intermediate Vomiting Verified 10/26/24 15:47 oxycodone [From Percocet] AdvReac Intermediate n/v Verified 10/26/24 15:47 Anesthesia AdvReac Severe Vomiting Uncoded 10/26/24 15:47 Home Medications Medication Instructions Recorded Confirmed Type cranberry 500 mg capsule 500 mg PO QDD 12/05/23 12/30/24 History mirabegron 25 mg tablet,extended 25 mg PO QAM 09/12/24 12/30/24 History release 24 hr (Myrbetriq) Lactobacillus rhamnosus GG 10 1 cap PO QAM 10/26/24 12/30/24 History billion cell capsule acetaminophen 325 mg tablet 650 mg PO Q4H PRN PAIN/FEVER >100F 10/26/24 12/30/24 History (Tylenol) acetaminophen 325 mg tablet 650 mg PO TID 10/26/24 12/30/24 History (Tylenol) lidocaine 4 % topical patch 1 patch topical DAILY 10/26/24 12/30/24 History folic acid 1 mg tablet 1 mg PO QAM 30 days #30 tabs 11/09/24 12/30/24 Rx multivitamin with minerals 1 tab PO DAILY #30 tabs 11/09/24 12/30/24 Rx (Multiple Vitamin-Minerals tablet) aspirin 81 mg chewable tablet 81 mg PO QAM 12/30/24 12/30/24 History cholecalciferol (vitamin D3) 25 25 mcg PO QAM 12/30/24 12/30/24 History mcg (1,000 unit) tablet (Vitamin D3) ferrous sulfate 325 mg (65 mg 325 mg PO BID 12/30/24 12/30/24 History iron) tablet menthol 0.44 %-zinc oxide 20.6 % 1 applic topical . NEEDED PRN 12/30/24 12/30/24 History topical ointment (Calmoseptine) incontinent episodes menthol 0.44 %-zinc oxide 20.6 % 1 applic topical QS 12/30/24 12/30/24 History topical ointment (Calmoseptine) omadacycline 150 mg tablet (Nuzyra) 300 mg PO QAM 12/30/24 12/30/24 History pantoprazole 40 mg tablet,delayed 40 mg PO QAM 12/30/24 12/30/24 History release (Protonix) simethicone 80 mg chewable tablet 80 mg PO Q6 PRN Abdominal 12/30/24 12/30/24 History Distention vancomycin 50 mg/mL oral solution 125 mg PO DAILY 12/30/24 12/30/24 History Past Med/Surg History Problem List Bilateral carotid artery disease (Acute) Urinary tract infection (Acute) Acute non-ST elevation myocardial infarction (NSTEMI) (Acute) Stroke-like symptom (Acute) Acute alteration in mental status (Acute) Discitis of thoracolumbar region Failure to thrive in adult Parainfluenza infection Acute hypoxic respiratory failure (Acute) AMS (altered mental status) (Acute) Multifocal pneumonia (Acute) Sepsis (Acute) Severe protein-calorie malnutrition VRE (vancomycin-resistant Enterococci) infection Endocarditis Bacteremia Osteomyelitis Lumbar stress fracture Infection due to vancomycin resistant Enterococcus faecium Gram-positive bacteremia Leukocytosis (Acute) Back pain (Acute) Hematuria Urinary retention Recurrent Clostridioides difficile diarrhea Abnormal CT scan, colon Aneurysm of aortic arch Depression with anxiety (Chronic) Obstructive sleep apnea (Chronic) Polyneuropathy (Chronic) Renal cyst, acquired (Acute) Seizure disorder (Chronic) Sensorineural hearing loss (SNHL) of both ears (Acute) Dyslipidemia BPH (benign prostatic hyperplasia) PAC (premature atrial contraction) Facet arthritis, degenerative, L5-S1 level, lumbosacral spine Hyponatremia Bicuspid aortic valve Vitamin D deficiency Dementia (Acute) Ambulatory dysfunction (Acute) Anemia Hypertension Medical History Esophageal candidiasis Fracture of femoral neck, left, closed Bladder stones Low back pain BPPV (benign paroxysmal positional vertigo) Family history of prostate cancer Squamous cell carcinoma of right lower leg Dementia with agitation Chronic indwelling Martinez catheter C. difficile colitis Coronary artery disease involving autologous artery coronary bypass graft Gross hematuria History of bicuspid aortic valve History of TIA (transient ischemic attack) SEPTEMBER 14, 2018 - (USUALLY TIA OCCURS 1X PER YR/STARTED 5 YR AGO)/DR FARRELL History of stroke 2012 - RESIDUAL: STABILITY ISSUE History of anesthesia reaction WITH HERNIA SURGERY (SHELDON) HAD TROUBLE WAKING UP Lyme disease Seizure X1 OR 2 - WHEN TX FOR STROKE IN 2012/ DR FARRELL Surgical History S/P hip hemiarthroplasty History of aortic valve replacement History of appendectomy (03/16/13) History of colonoscopy History of hernia surgery X2 History of repair of right rotator cuff H/O aortic valve replacement 2013 - AND BICUSPID VALVE REPLACED AT SAME TIME PER PT REPORT /"OPEN HEART" 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 H/O aortic aneurysm repair Family History Mother , age 70 of lung cancer Lung cancer COPD (chronic obstructive pulmonary disease) Father , age 91 of prostate cancer Prostate cancer Coronary heart disease Myocardial infarction Family/Other Breast cancer Cancer Other Heart disease No family history of adverse response to anesthesia No family history of bleeding disorder Social History Smoking Status: Never smoker Second Hand Exposure: No; Do You Dip or Chew Tobacco: No; Hx Alcohol Use: No Hx Substance Use: No Preferred Language: Guyanese Communication Ability: Impaired Communication Ability Comment: , Roxana Lopez, is POA. Visual Impairment: No Limitations Hearing Ability: Normal Straw Hat Presser Required: No Beliefs That Will Affect Care: None marital status: Current Living Situation: Skilled Nursing Current Living Situation Comment: [facility] nursing current occupational status: retired Feels Safe at Home: Yes Assistive Devices: Mechanical Lift Review of Systems Review of Systems: As per HPI Physical Exam Physical Exam: Gen: Pt is snoring, but does not awake with verbal or tactile stimuli HENT: Normocephalic, atraumatic. External ear without deformities. Trachea midline, no thyromegaly. Dry mucus membranes Cardio: RRR, systolic murmur is noted. NO extremity edema Resp: CTAB, Equal bilateral chest rise, no increased work of breathing GI: Nondistended, soft, no response to palpation, normoactive bowel sounds : Martinez in place, scant bright red blood at tip of penis near tubing of martinez catheter MSK: Unable to assess ROM or strength as pt is no awaking to follow commands Skin: Dry, of normal skin tone, Neuro: Unable to assess due to pt not awaking to follow commands Results & Data Results & Data Vital Signs (Past 12 Hours) Vital Signs Temp Pulse Resp BP Pulse Ox O2 Del Method 12/30/24 22:00 95 H 131/87 95 Room Air 12/30/24 21:48 92 H 122/84 99 Room Air 12/30/24 21:30 90 123/81 100 Room Air 12/30/24 21:15 92 H 130/80 94 Room Air 12/30/24 21:00 89 121/79 100 Room Air 12/30/24 20:45 121/74 12/30/24 20:35 108/72 12/30/24 20:35 108/72 12/30/24 20:30 111/73 12/30/24 20:30 111/73 12/30/24 20:00 86 116/76 96 12/30/24 19:55 36.7 C 89 10 L 116/76 96 Room Air 12/30/24 19:51 92 H 123/78 95 12/30/24 19:49 90 Laboratory Results 12/30/24 12/30/24 12/30/24 Range/Units 21:40 21:37 20:39 WBC (4.8-10.8) K/ul RBC (4.70-6.10) M/uL Hgb (14.0-18.0) g/dl POC Hgb (14.0-18.0) g/dl Hct (42.0-52.0) % POC Hct (42-52) % MCV (80.0-100.0) fL MCH (25.0-34.0) pg MCHC (32.0-36.0) g/dL RDW Std Deviation (36.4-46.3) fL RDW Coeff of Stormy (11.5-14.5) % Plt Count (130-400) K/uL MPV (9.4-12.4) fL Immature Gran % (Auto) % Neut % (Auto) % Lymph % (Auto) % [place] % (Auto) % Eos % (Auto) % Baso % (Auto) % Neut # (Auto) (1.40-6.50) K/uL Lymph # (Auto) (1.20-3.40) K/uL [place] # (Auto) (0.11-0.59) K/uL Eos # (Auto) (0.00-0.50) K/uL Baso # (Auto) (0.00-0.20) K/uL Immature Gran # (Auto) (0.01-0.20) K/uL PT (9.0-12.0) Seconds INR (0.9-1.1) APTT (21-31) Seconds PTT Ratio VBG pH 7.43 H (7.36-7.41) VBG pCO2 38 (38-50) mmHg VBG pO2 39 mmHg VBG HCO3 25 mmol/L VBG O2 Saturation 69.8 % VBG Base Excess 0.9 mEq/L POC Sodium (135-144) mmol/L Sodium (136-145) mmol/L POC Potassium (3.3-5.0) mmol/L Potassium (3.5-5.1) mmol/L POC Chloride (101-112) mmol/L Chloride (98-107) mmol/L Carbon Dioxide (21-32) mmol/L POC Total CO2 (24-31) mmol/L Anion Gap (3-11) POC Anion Gap (16-25) mmol/L POC BUN (7-18) mg/dl BUN (6-23) mg/dl Creatinine (0.6-1.4) mg/dl POC Creatinine (0.6-1.3) mg/dl Est Cr Clr Drug Dosing ml/min eGFR BUN/Creatinine Ratio (10-20) Glucose (70-99(Fasting)) mg/dl POC Glucose (other) (70-99) mg/dl Lactate (0.4-2.0) mmol/L Calcium (8.6-10.3) mg/dl POC Ioniz Calcium Kwasi (1.12-1.32) mmol/l Magnesium (1.7-2.4) mg/dl Total Bilirubin (0.2-1.0) mg/dl Direct Bilirubin (0-0.2) mg/dl AST (13-39) U/L ALT (7-52) U/L Alkaline Phosphatase (34-104) U/L Troponin I High Sens 8266.1 H* (0-20) pg/ml Total Protein (6.0-8.3) gm/dl Albumin (3.4-5.0) gm/dl Procalcitonin (0-0.5) ng/ml Urine Color Yellow Urine Appearance Cloudy A (Clear) Urine pH 7.0 (4.5-7.5) Ur Specific [place] > 1.045 H (1.000-1.030) Urine Protein 1+ H (Negative) Urine Glucose (UA) Negative (Negative) Urine Ketones Negative (Negative) Urine Blood 2+ H (Negative) Urine Nitrite Positive A (Negative) Urine Bilirubin Negative (Negative) Urine Urobilinogen Negative (Negative) Ur Leukocyte Esterase 2+ H (Negative) Urine WBC (Auto) >50 H (0-5) /hpf Urine RBC (Auto) >20 H (0-2) /hpf U Hyaline Cast (Auto) 6-10 H (0-2) /lpf U Epithel Cells (Auto) 0-2 (0-2) /hpf Urine Bacteria (Auto) 2+ H (None Seen) Calcium Oxalate Crystal Present A (None Prsent) Urine Yeast Present A (None Prsent) Urine Comment 12/30/24 12/30/24 Range/Units 19:57 19:56 WBC 9.51 (4.8-10.8) K/ul RBC 3.53 L (4.70-6.10) M/uL Hgb 10.3 L (14.0-18.0) g/dl POC Hgb 10.2 L (14.0-18.0) g/dl Hct 30.5 L (42.0-52.0) % POC Hct 30 L (42-52) % MCV 86.4 (80.0-100.0) fL MCH 29.2 (25.0-34.0) pg MCHC 33.8 (32.0-36.0) g/dL RDW Std Deviation 53.2 H (36.4-46.3) fL RDW Coeff of Stormy 16.8 H (11.5-14.5) % Plt Count 172 (130-400) K/uL MPV 9.3 L (9.4-12.4) fL Immature Gran % (Auto) 0.3 % Neut % (Auto) 73.9 % Lymph % (Auto) 14.0 % [place] % (Auto) 10.8 % Eos % (Auto) 0.6 % Baso % (Auto) 0.4 % Neut # (Auto) 7.02 H (1.40-6.50) K/uL Lymph # (Auto) 1.33 (1.20-3.40) K/uL [place] # (Auto) 1.03 H (0.11-0.59) K/uL Eos # (Auto) 0.06 (0.00-0.50) K/uL Baso # (Auto) 0.04 (0.00-0.20) K/uL Immature Gran # (Auto) 0.03 (0.01-0.20) K/uL PT 11.4 (9.0-12.0) Seconds INR 1.1 (0.9-1.1) APTT 31 (21-31) Seconds PTT Ratio 1.2 VBG pH (7.36-7.41) VBG pCO2 (38-50) mmHg VBG pO2 mmHg VBG HCO3 mmol/L VBG O2 Saturation % VBG Base Excess mEq/L POC Sodium 132 L (135-144) mmol/L Sodium 130 L (136-145) mmol/L POC Potassium 4.3 (3.3-5.0) mmol/L Potassium 4.4 (3.5-5.1) mmol/L POC Chloride 98 L (101-112) mmol/L Chloride 101 (98-107) mmol/L Carbon Dioxide 24 (21-32) mmol/L POC Total CO2 23 L (24-31) mmol/L Anion Gap 5 (3-11) POC Anion Gap 16.0 (16-25) mmol/L POC BUN 24 H (7-18) mg/dl BUN 24 H (6-23) mg/dl Creatinine 0.75 (0.6-1.4) mg/dl POC Creatinine 1.0 (0.6-1.3) mg/dl Est Cr Clr Drug Dosing 62.0 ml/min eGFR 88.98 BUN/Creatinine Ratio 32.0 H (10-20) Glucose 128 H (70-99(Fasting)) mg/dl POC Glucose (other) 126 H (70-99) mg/dl Lactate 1.2 (0.4-2.0) mmol/L Calcium 8.2 L (8.6-10.3) mg/dl POC Ioniz Calcium Kwasi 1.13 (1.12-1.32) mmol/l Magnesium 1.8 (1.7-2.4) mg/dl Total Bilirubin 0.6 (0.2-1.0) mg/dl Direct Bilirubin 0.1 (0-0.2) mg/dl AST 70 H (13-39) U/L ALT 35 (7-52) U/L Alkaline Phosphatase 109 H (34-104) U/L Troponin I High Sens 7782.7 H* (0-20) pg/ml Total Protein 6.3 (6.0-8.3) gm/dl Albumin 2.7 L (3.4-5.0) gm/dl Procalcitonin 0.30 (0-0.5) ng/ml Urine Color Urine Appearance (Clear) Urine pH (4.5-7.5) Ur Specific [place] (1.000-1.030) Urine Protein (Negative) Urine Glucose (UA) (Negative) Urine Ketones (Negative) Urine Blood (Negative) Urine Nitrite (Negative) Urine Bilirubin (Negative) Urine Urobilinogen (Negative) Ur Leukocyte Esterase (Negative) Urine WBC (Auto) (0-5) /hpf Urine RBC (Auto) (0-2) /hpf U Hyaline Cast (Auto) (0-2) /lpf U Epithel Cells (Auto) (0-2) /hpf Urine Bacteria (Auto) (None Seen) Calcium Oxalate Crystal (None Prsent) Urine Yeast (None Prsent) Urine Comment Supervising Physician Co-Signing Physician Notes Patient seen and examined, chart reviewed, case discussed with Dr. Gastelum and I agree with the assessment and plan as above. In brief, patient is an 84yo male with history of dementia, s/p bioprosthetic AVR, aortic aneurysm repair with graft in place, prior osteomyelitis, endocarditis, discitis. Patient with recurrent bacteremia s/p prolonged course of Daptomycin and Ampicillin, thought possibly to have infected graft or valve due to recurrence of enterococcus faecium bacteremia. Patient was started on chronic suppressive therapy with omadacycline but treatment was delayed due to insurance authorization. Reported fever at facility, increased WBC count. Patient had been complaining of back pain. Increased somnolence throughout today On exam he is sleeping deeply, does withdraw from painful stimuli PERRL, dry MMM +S1/S2, regular, 3/6 RAGHU Lungs CTA Abd soft, NT/ND Ext - Martinez in place, exchanged in ER Ext no edema Labs and images reviewed Possible recurrence of infection given delay in antibiotic therapy, fever and leukocytosis prior to arrival. WBC count and procalcitonin are normal here,, however. No fever at present. Will follow cultures- blood and urine Antibiotic coverage with Daptomycin and Zosyn - should cover his history of VRE as well as history of Pseudomonas UTIs Consider re-imaging the back with MRI Check MRI brain IVF Trend troponin, check limited 2D echo in AM Remainder as above Resident Activity Tracking Resident Involvement: Resident Care Provided Care Provided: Adult Hospital Medicine (5) Dementia Dementia behavioral or psychological symptom: unspecified whether behavioral, psychotic, or mood disturbance or anxiety Dementia severity: unspecified severity Dementia type: unspecified type Qualified Code(s): F03.90 - Unspecified dementia, unspecified severity, without behavioral disturbance, psychotic disturbance, mood disturbance, and anxiety
[2024-12-30] MEDS: DAPTOmycin 600 MG in SYRINGE 0 ML IV STA (23:29)
--- NOTE | 2024-12-30 23:46 | Billing Data ---
Date of Service December 30, 2024 Coding Level of Care Code 10583 INT INP/OBS CARE
--- NOTE | 2024-12-30 23:46 | Billing Data ---
Date of Service December 30, 2024 Coding Level of Care Code 71778 INT INP/OBS CARE
[2024-12-31] MEDS ORDERED: LACTATED RINGER'S 1,000 ML IV SCH (00:22)
[2024-12-31] MEDS ORDERED: ONDANSETRON INJ 2 MG/ML 2 ML VIAL IV PRN (00:22)
[2024-12-31] MEDS: SODIUM CHLORIDE 0.9% 1,000 ML IV STA (00:24)
[2024-12-31] MEDS: GADOBUTROL 65ML VIAL IV ONE (02:10)
--- NOTE | 2024-12-31 03:05 | Magnetic Resonance Report ---
EXAM: MR brain seizure wo/w con CLINICAL HISTORY: unresponsive, rule out CVA TECHNIQUE: Multisequential and multiplanar images of the brain were submitted for review without and with contrast. COMPARISON: CT, 07/11/2024 16:12:00 ICU STAFF NURSE FINDINGS: Few small T2/FLAIR hyperintensities with DWI restriction seen in left cerebellum. Generalized parenchymal atrophy is appreciated. Scattered foci of increased T2/FLAIR signal abnormality are identified within the bilateral periventricular and subcortical white matter, and are most commonly associated with chronic small vessel ischemic disease. No focal parenchymal lesions are seen. No intracranial hemorrhage, mass effect, midline shift, extra-axial collection, or hydrocephalus is identified. Ventricles, sulci, and basal cisterns are symmetric and normal in size and configuration. Midline structures including the pituitary gland, corpus callosum, pineal region, and brainstem are unremarkable. No evidence of any enhancing mass or abnormal enhancement seen. The craniovertebral junction is within normal limits. No calvarial abnormalities are identified. The paranasal sinuses and mastoid air cells are clear. Orbital structures are unremarkable. Appropriate flow voids are present in the visualized intracranial vessels. IMPRESSION: 1. 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 New finding 2. 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 Electronically signed by Steve Cody 12-31-2024 03:04 AM
[2024-12-31] MEDS ORDERED: PHARMACIST DISCHARGE MED REC CONSULT PRN (03:08)
[2024-12-31] MEDS: PIPERACILLIN/TAZOBACTAM 4.5 GM/100 ML BAG IV SCH (04:27)
[2024-12-31 06:27] LABS: Hematocrit (blood only) 30.2 % (42.0-52.0); Hemoglobin 10.1 g/dl (14.0-18.0); Mean Corpuscular Hemoglobin 28.8 pg (25.0-34.0); Mean Corpuscular Volume 86.0 fL (80.0-100.0); Platelet Count 152 K/uL (130-400); RDW Standard Deviation 52.7 fL (36.4-46.3); Red Blood Count 3.51 M/uL (4.70-6.10); White Blood Count 9.25 K/ul (4.8-10.8)
[2024-12-31 06:45] LABS: Cholesterol 138.0 mg/dl (0-200); HDL Cholesterol 29.0 mg/dl; Triglycerides 108.0 mg/dl (0-150)
[2024-12-31 06:55] LABS: Anion Gap 8.0 (3-11); Blood Urea Nitrogen 18.0 mg/dl (6-23); Calcium 8.2 mg/dl (8.6-10.3); Carbon Dioxide 22.0 mmol/L (21-32); Chloride 101.0 mmol/L (98-107); Creatinine Clr Calc Pharmacy 92.3 ml/min; Glucose 107.0 mg/dl (70-99(Fasting)); Potassium 3.9 mmol/L (3.5-5.1); Sodium 131.0 mmol/L (136-145)
[2024-12-31 07:05] LABS: Hemoglobin A1C 4.9 % (4.5-5.6)
[2024-12-31] MEDS: PANTOprazole 40 MG/10 ML SYR IV SCH (08:49)
[2024-12-31] MEDS: ASPIRIN 81 MG ECTAB PO SCH (08:49)
[2024-12-31] MEDS ORDERED: PANTOprazole 40 MG/10 ML SYR IV SCH (09:00)
[2024-12-31] MEDS: SODIUM CHLORIDE 0.9% 1,000 ML IV SCH (09:12)
[2024-12-31 14:05] LABS: A calco-baum cmplx NotReported Not Detected (NotDetected); Bact fragilis Not Reported Not Detected (NotDetected); Blood Culture Id Panel See PCR Comment (NotDetected); C auris Not Reported Not Detected (NotDetected); Calbicans Not Reported Not Detected (NotDetected); Candida glabrata Not Reported Not Detected (NotDetected); Candida krusei Not Reported Not Detected (NotDetected); Cneoformans/gatti Not Reported Not Detected (NotDetected); Cparapsilosis Not Reported Not Detected (NotDetected); Ctropicalis Not Reported Not Detected (NotDetected); E cloacae compx Not Reported Not Detected (NotDetected); Efaecalis Not Reported Not Detected (NotDetected); Efaecium Not Reported DETECTED (NotDetected); Enterobacterales Not Reported Not Detected (NotDetected); Escherichia coli Not Reported Not Detected (NotDetected); H influenzae Not Reported Not Detected (NotDetected); K aerogenes Not Reported Not Detected (NotDetected); Koxytoca Not Reported Not Detected (NotDetected); Kpneumoniae grp Not Reported Not Detected (NotDetected); Lmonocyt Not Reported Not Detected (NotDetected); N meningitidis Not Reported Not Detected (NotDetected); P aeruginosa Not Reported Not Detected (NotDetected); Proteus spp Not Reported Not Detected (NotDetected); Salmonella spp Not Reported Not Detected (NotDetected); Staph lugdunensis Not Reported Not Detected (NotDetected); Staph spp. Not Reported Not Detected (NotDetected); Staphaureus Not Reported Not Detected (NotDetected); Staphepi Not Reported Not Detected (NotDetected); Stenmaltophilia Not Reported Not Detected (NotDetected); Strep agal(GrpB) Not Reported Not Detected (NotDetected); Strep pneum Not Reported Not Detected (NotDetected); Strep pyog (GrpA) Not Reported Not Detected (NotDetected); Strep spp Not Reported Not Detected (NotDetected); VanAB Resistant Gene VRE Not Detected (NotDetected)
[2024-12-31 14:31] LABS: Enterococcus faecium DETECTED (NotDetected)
--- NOTE | 2024-12-31 15:38 | Hospitalist Progress Note ---
Date of Service December 31, 2024 Assessment & Plan (1) Bacteremia: Plan: Gram-positive cocci present on admission. Suspected Enterococcus. Await final identification and sensitivities. 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 Supportive care. Multiple therapy modalities have been requested. (3) Metabolic encephalopathy: Plan: Present on admission. Due to CAUTI and acute CVA. Supportive care (4) Urinary tract infection: Plan: Catheter associated. Gram-negative rods isolated in the urine. He does have a history of Pseudomonas. He is currently on intravenous daptomycin and Zosyn (5) Back pain: Plan: Chronic. History of lumbar discitis in October of this year treated with a prolonged course of intravenous antibiotics. Repeat imaging will need to be done once stable. Pain control measures (6) Dementia: Plan: Severe. Supportive measures Plan Anticipate eventual return to [facility] sometime next week Admission and Anticipated Discharge Date Admission Date: December 30, 2024 Subjective The patient is awake but disoriented due to severe baseline dementia. No acute distress. There is evidence of catheter associated UTI and blood cultures are positive for gram-positive cocci. He is on daptomycin and Zosyn currently. Unfortunately he has had embolic multiple left cerebellar CVA's. He does not ambulate so hopefully this will not cause much symptoms. I suspect it is from atherosclerotic plaque that broke off and embolized. Embolization from a cardiac source is also a possibility but less likely. OT evaluation, PT, and speech evaluations have been requested. Review of Systems 2 Review of Systems: The patient is severely demented and unable to reliably answer any questions regarding review of systems Physical Exam 2 Physical Exam: General-alert but disoriented at baseline due to severe dementia. Nonverbal. No fever HEENT-head atraumatic and normocephalic, pupils equal and reactive to light, extraocular muscles intact Neck-no lymphadenopathy or thyromegaly, trachea midline Chest-scattered rhonchi. No respiratory rales. No wheezing Cardiac-regular rate and rhythm, normal S1 and S2 Abdomen-normal bowel sounds, no hepatosplenomegaly Musculoskeletalchronic low back pain Extremities-no cyanosis, clubbing, or edema Neuro-cranial nerves II through XII intact, motor and sensory function within normal limits, strength symmetrical, no focal deficits Psych-flat. Baseline disorientation due to dementia Results & Data Results & Data Vital Signs (Past 12 Hours) Vital Signs Temp Pulse Pulse Resp BP Pulse Ox O2 Del Method 12/31/24 14:34 37.8 C H 96 H 20 107/85 98 Nasal Cannula 12/31/24 11:22 37.7 C H 101 H 28 H 109/80 95 Nasal Cannula 12/31/24 07:41 37.3 C 98 H 20 110/71 92 Room Air 12/31/24 07:00 108 H 12/31/24 06:03 99 H O2 Flow Rate 12/31/24 14:34 2.0 12/31/24 11:22 2.0 12/31/24 07:41 12/31/24 07:00 12/31/24 06:03 Laboratory Results 12/31/24 05:35 12/31/24 05:35 PG Care Time/CCT Total # of Minutes Spent Total Time Spent with Patient: Total time spent is greater than 50% in coordination of care (as documented) at patient's floor/unit and/or counseling patient: Coding Level of Care Code 21779 SUB INP/OBS CARE 3/50MIN Diagnoses Bacteremia R78.81 Embolic stroke I63.9 Metabolic encephalopathy G93.41 Urinary tract infection N39.0 Back pain M54.9 Dementia F03.90 Dementia behavioral or psychological symptom: unspecified whether behavioral, psychotic, or mood disturbance or anxiety Dementia severity: unspecified severity Dementia type: unspecified type (6) Dementia Dementia behavioral or psychological symptom: unspecified whether behavioral, psychotic, or mood disturbance or anxiety Dementia severity: unspecified severity Dementia type: unspecified type Qualified Code(s): F03.90 - Unspecified dementia, unspecified severity, without behavioral disturbance, psychotic disturbance, mood disturbance, and anxiety
[2024-12-31] MEDS: DAPTOmycin 600 MG in SYRINGE 0 ML IV SCH (21:00)
--- NOTE | 2024-12-31 22:27 | Electrocardiogram Report ---
Test Reason : Blood Pressure : */* mmHG Vent. Rate : 92 BPM Atrial Rate : 92 BPM P-R Int : 186 ms QRS Dur : 88 ms QT Int : 378 ms P-R-T Axes : 76 -19 -7 degrees QTcB Int : 467 ms Sinus rhythm with Premature atrial complexes Moderate voltage criteria for LVH, may be normal variant ( R in aVL , Aiken product ) Septal infarct , age undetermined Abnormal ECG When compared with ECG of 26-Oct-2024 11:05, Premature ventricular complexes are no longer Present Inverted T waves have replaced nonspecific T wave abnormality in Inferior leads Confirmed by Vikas Lynn ([id number]) on 12/31/2024 10:27:24 PM Referred By: REFERRED SELF Confirmed By: Vikas Lynn
--- NOTE | 2024-12-31 23:29 | XCELERA ---
[id number]
[2025-01-01 06:45] LABS: Hematocrit (blood only) 28.4 % (42.0-52.0); Hemoglobin 9.6 g/dl (14.0-18.0); Mean Corpuscular Hemoglobin 29.2 pg (25.0-34.0); Mean Corpuscular Volume 86.3 fL (80.0-100.0); Platelet Count 148 K/uL (130-400); RDW Standard Deviation 52.8 fL (36.4-46.3); Red Blood Count 3.29 M/uL (4.70-6.10); White Blood Count 10.43 K/ul (4.8-10.8)
[2025-01-01 07:11] LABS: Anion Gap 7.0 (3-11); Blood Urea Nitrogen 18.0 mg/dl (6-23); Calcium 8.1 mg/dl (8.6-10.3); Carbon Dioxide 22.0 mmol/L (21-32); Chloride 102.0 mmol/L (98-107); Creatinine Clr Calc Pharmacy 78.5 ml/min; Glucose 97.0 mg/dl (70-99(Fasting)); Potassium 3.7 mmol/L (3.5-5.1); Sodium 131.0 mmol/L (136-145)
[2025-01-01] MEDS: ACETAMINOPHEN 1,000 MG/100 ML VIAL IV PRN (07:50)
--- NOTE | 2025-01-01 14:25 | Magnetic Resonance Report ---
Lumbar spine MRI without IV contrast History: History of lumbar infection Comparison: MRI from September 17, 2024 Technique: Sagittal T1-weighted, sagittal STIR, 3D volumetric axial and sagittal reconstructed T2-weighted images of the lumbar spine were obtained without intravenous contrast. Findings: There are 5 lumbar-type vertebrae assumed for the purposes of this dictation. The tip of the conus medullaris is at L1. Normal lumbar vertebral alignment. There is multilevel degenerative disc height loss, which is similar to prior, and overall moderate at the T12-L1, L1-L2, L4-L5, and L5-S1 levels. There may be mild disc height loss at L2-L3 and L3-L4. Significant interval decrease in the signal abnormality at the T12-L1 endplates, with both decreased size as well as signal intensity from prior. There continues to be subtle low T1 signal abnormality, especially the inferior T12 endplate. There are a few tiny foci of high signal intensity within the disc space, otherwise the diffuse high signal abnormality on prior is resolved. There is no abnormality in the spinal canal at this level. Similar-appearing multilevel degenerative changes, including small disc bulges, facet arthropathy and ligamentum flavum thickening. There is again moderate right and severe left neuroforaminal narrowing at L3-4, severe right and moderate to severe left neuroforaminal narrowing at L4-5, and moderate to severe bilateral neuroforaminal narrowing at L5-S1. Paraspinous tissues are within normal limits. Note: The following findings are common in the absence of low back pain and while we report their presence, they must be interpreted with caution and in the context of the clinical situation. (Reference -Jarvik et al, Spine 2001) Findings (prevalence in patients without low back pain) Disc degeneration (decreased T2 signal, height loss, bulge) (91%) Disc T2 - signal loss (83%) Disc height loss (56%) Disc bulge (64%) Disc protrusion (32%) Annular tear (38%). Impression: Significant interval decrease in signal abnormality at the T12-L1 level from prior, which may represent resolved or resolving osteomyelitis/discitis. Some residual high STIR signal change at this level suggest some mild ongoing inflammation. Electronically signed by Felix Pal 01-01-2025 2:25 PM
--- NOTE | 2025-01-01 15:01 | Hospitalist Progress Note ---
Date of Service January 01, 2025 Assessment & Plan (1) Acute bacterial endocarditis: Plan: Suspected. 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 MOIZ has been ordered. Infectious disease consultation requested. Blood cultures positive for Enterococcus faecium which previously has been sensitive to daptomycin. I suspect the probable source is from his lumbar spine where he previously had discitis and osteomyelitis. Repeat lumbar MRI scan has been ordered and pending. (2) Bacteremia: Plan: Enterococcus faecium isolated. Previously sensitive to daptomycin. 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 Lumbar MRI scan ordered and pending. 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 If he indeed has an aortic valve vegetation this is likely the culprit. Supportive care. (4) Metabolic encephalopathy: Plan: Present on admission. Due to CAUTI and acute CVA. Supportive care (5) Urinary tract infection: Plan: Catheter associated. Pseudomonas isolated in the urine. He does have a history of Pseudomonas. It is sensitive to Zosyn. (6) Back pain: Plan: Chronic. History of lumbar discitis in October of this year treated with a prolonged course of intravenous antibiotics. Repeat imaging has been ordered due to likelihood of recurrence causing the acute bacterial endocarditis which resulted in embolic CVA. Pain control measures (7) Dementia: Plan: Severe. 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 MOIZ has been ordered. ID consultation requested. MRI of his lumbar spine has also been ordered. He remains on intravenous daptomycin and Zosyn. Urine culture is growing Pseudomonas which is sensitive to the Zosyn. Blood cultures are growing Enterococcus Faecium which on previous cultures were sensitive to the daptomycin. His was at the bedside and his daughter was on the phone and they have been updated. Review of Systems 2 Review of Systems: The patient is severely demented and unable to reliably answer any questions regarding review of systems Physical Exam 2 Physical Exam: General-alert but disoriented at baseline due to severe dementia. Nonverbal. No fever HEENT-head atraumatic and normocephalic, pupils equal and reactive to light, extraocular muscles intact Neck-no lymphadenopathy or thyromegaly, trachea midline Chest-scattered rhonchi. No respiratory rales. No wheezing Cardiac-regular rate and rhythm, normal S1 and S2 Abdomen-normal bowel sounds, no hepatosplenomegaly Musculoskeletalchronic low back pain Extremities-no cyanosis, clubbing, or edema Neuro-cranial nerves II through XII intact, motor and sensory function within normal limits, strength symmetrical, no focal deficits Psych-flat. Baseline disorientation due to dementia Results & Data Results & Data Vital Signs (Past 12 Hours) Vital Signs Temp Pulse Pulse Resp BP Pulse Ox O2 Del Method 01/01/25 11:13 36.3 C L 95 H 20 99/73 L 100 Nasal Cannula 01/01/25 07:24 37.4 C 101 H 30 H 100/67 96 Nasal Cannula 01/01/25 06:20 109 H 01/01/25 03:01 37.1 C 111 H 25 H 117/81 93 Nasal Cannula O2 Flow Rate 01/01/25 11:13 2.0 01/01/25 07:24 2.0 01/01/25 06:20 01/01/25 03:01 2 Laboratory Results 01/01/25 05:54 01/01/25 05:54 PG Care Time/CCT Total # of Minutes Spent Total Time Spent with Patient: Total time spent is greater than 50% in coordination of care (as documented) at patient's floor/unit and/or counseling patient: Coding Level of Care Code 98255 SUB INP/OBS CARE 3/50MIN Diagnoses Acute bacterial endocarditis I33.0 Bacteremia R78.81 Embolic stroke I63.9 Metabolic encephalopathy G93.41 Urinary tract infection N39.0 Back pain M54.9 Dementia F03.90 Dementia behavioral or psychological symptom: unspecified whether behavioral, psychotic, or mood disturbance or anxiety Dementia severity: unspecified severity Dementia type: unspecified type (7) Dementia Dementia behavioral or psychological symptom: unspecified whether behavioral, psychotic, or mood disturbance or anxiety Dementia severity: unspecified severity Dementia type: unspecified type Qualified Code(s): F03.90 - Unspecified dementia, unspecified severity, without behavioral disturbance, psychotic disturbance, mood disturbance, and anxiety
[2025-01-02 06:19] LABS: Hematocrit (blood only) 29.5 % (42.0-52.0); Hemoglobin 9.8 g/dl (14.0-18.0); Mean Corpuscular Hemoglobin 28.8 pg (25.0-34.0); Mean Corpuscular Volume 86.8 fL (80.0-100.0); Platelet Count 139 K/uL (130-400); RDW Standard Deviation 51.8 fL (36.4-46.3); Red Blood Count 3.40 M/uL (4.70-6.10); White Blood Count 8.84 K/ul (4.8-10.8)
[2025-01-02 06:54] LABS: Anion Gap 7.0 (3-11); Blood Urea Nitrogen 24.0 mg/dl (6-23); Calcium 8.3 mg/dl (8.6-10.3); Carbon Dioxide 24.0 mmol/L (21-32); Chloride 103.0 mmol/L (98-107); Creatinine Clr Calc Pharmacy 85.0 ml/min; Glucose 99.0 mg/dl (70-99(Fasting)); Potassium 3.5 mmol/L (3.5-5.1); Sodium 134.0 mmol/L (136-145)
--- NOTE | 2025-01-02 11:32 | Hospitalist Progress Note ---
Date of Service January 02, 2025 Assessment & Plan (1) Acute bacterial endocarditis: Plan: Suspected. 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 MOIZ has been ordered. Infectious disease consultation requested and pending. Blood cultures positive for Enterococcus faecium. Urine is growing Pseudomonas. Both are sensitive to Zosyn which we will continue. Daptomycin has been discontinued. (2) Bacteremia: Plan: Enterococcus faecium isolated. Sensitive to Zosyn. Daptomycin has been discontinued. 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 Lumbar MRI scan does not reveal any drainable abscess collection. 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 More than likely this is from suspected BRYAN. Supportive care. (4) Metabolic encephalopathy: Plan: Present on admission. Due to CAUTI, bacteremia and acute CVA. Supportive care (5) Urinary tract infection: Plan: Catheter associated. Pseudomonas isolated in the urine. Sensitive to Zosyn. (6) Back pain: Plan: Chronic. History of lumbar discitis in October of this year treated with a prolonged course of intravenous antibiotics. Repeat lumbar MRI negative for abscess formation. Pain control measures (7) Dementia: Plan: Severe. Supportive measures Plan To be determined. Hopeful eventual return to [facility] sometime this week Admission and Anticipated Discharge Date Admission Date: December 30, 2024 Subjective The patient is awake but nonverbal at the time of my examination. His is at the bedside and states he is having jerking movements intermittently interspersed around periods of lucidity. He is not having any seizure activity. He has multiple medical problems ongoing and all are playing a factor. She is interested in feeding tube placement due to recurrent episodes of dehydration from poor oral intake. I told her a PEG tube placement would be the only way to address this but it is not a priority right now because he has suspected BRYAN and enterococcal bacteremia. MOIZ ordered and pending. Infectious disease consultation ordered and pending. Fortunately, his MRI of the lumbar spine does not show anything that requires surgical intervention. However, he was treated earlier this year for lumbar discitis and osteomyelitis and ongoing infection in the lumbar spine region could be playing a role here. Review of Systems 2 Review of Systems: The patient is severely demented and unable to reliably answer any questions regarding review of systems Physical Exam 2 Physical Exam: General-alert but disoriented at baseline due to severe dementia. Nonverbal. No fever HEENT-head atraumatic and normocephalic, pupils equal and reactive to light, extraocular muscles intact Neck-no lymphadenopathy or thyromegaly, trachea midline Chest-scattered rhonchi. No respiratory rales. No wheezing Cardiac-regular rate and rhythm, normal S1 and S2 Abdomen-normal bowel sounds, no hepatosplenomegaly Musculoskeletalchronic low back pain Extremities-no cyanosis, clubbing, or edema Neuro-cranial nerves II through XII intact, motor and sensory function within normal limits, strength symmetrical, no focal deficits Psych-flat. Baseline disorientation due to dementia Results & Data Results & Data Vital Signs (Past 12 Hours) Vital Signs Temp Pulse Pulse Resp BP Pulse Ox O2 Del Method 01/02/25 10:12 36.6 C 100 H 24 110/70 94 Room Air 01/02/25 07:29 37.4 C 98 H 20 108/69 91 Room Air 01/02/25 07:00 98 H 01/02/25 05:09 36.8 C 99 H 22 122/75 96 Room Air Laboratory Results 01/02/25 05:45 01/02/25 05:45 PG Care Time/CCT Total # of Minutes Spent Total Time Spent with Patient: Total time spent is greater than 50% in coordination of care (as documented) at patient's floor/unit and/or counseling patient: Coding Level of Care Code 55838 SUB INP/OBS CARE 3/50MIN Diagnoses Acute bacterial endocarditis I33.0 Bacteremia R78.81 Embolic stroke I63.9 Metabolic encephalopathy G93.41 Urinary tract infection N39.0 Back pain M54.9 Dementia F03.90 Dementia behavioral or psychological symptom: unspecified whether behavioral, psychotic, or mood disturbance or anxiety Dementia severity: unspecified severity Dementia type: unspecified type (7) Dementia Dementia behavioral or psychological symptom: unspecified whether behavioral, psychotic, or mood disturbance or anxiety Dementia severity: unspecified severity Dementia type: unspecified type Qualified Code(s): F03.90 - Unspecified dementia, unspecified severity, without behavioral disturbance, psychotic disturbance, mood disturbance, and anxiety
[2025-01-02] MEDS: PIPERACILLIN/TAZOBACTAM 4.5 GM/100 ML BAG IV SCH (12:16)
--- NOTE | 2025-01-02 13:54 | Cardiology Consultation ---
Date of Consultation January 02, 2025 Assessment & Plan (1) Acute bacterial endocarditis: (2) Bacteremia: (3) Acute non-ST elevation myocardial infarction (NSTEMI): (4) Stenosis of prosthetic aortic valve: (5) Paroxysmal atrial tachycardia: Plan ASSESSMENT/PLAN: 1. Possible endocarditis: Has recurrent bacteremia with bioprosthetic aortic valve in place. Finding on echo concerning for possible endocarditis with involvement of the mitral valve and cannot exclude bioprosthetic aortic valve. Transesophageal echo has been deferred in the past due to patient's family's wishes as he is unable to consent for procedures. Discussed MOIZ with patient's and also his daughter joined via speaker phone. He does not do well with sedation per family. If MOIZ confirms or suspicious for endocarditis, options would include continuation of antibiotic therapy as directed by infectious disease, versus surgical approach. Family confirmed that they would not be interested in pursuing surgical intervention. He is not a good surgical candidate given his severe underlying dementia and previous sternotomy. Therefore, no clear benefit for MOIZ, while still adding risk of the procedure and sedation. Family was united in decision to not pursue MOIZ but rather medical therapy. We discussed the fact that there is increased risk for ongoing infection, and embolic phenomenon, including stroke. His expressed understanding. 2. Stenosis of bioprosthetic aortic valve: Doppler findings support severe stenosis of bioprosthetic aortic valve. Family was made aware and were already aware of this finding from previous imaging. No surgery as per above. 3. Thoracic aortic aneurysm s/p repair: Surveillance not necessary as he is not a surgical candidate as above. 4. Bacteremia: As per primary service and infectious disease. 5. Atrial tachycardia: Paroxysmal, nonsustained atrial tachycardia on telemetry. Seems to be asymptomatic. No specific therapy necessary at this time. 6. NSTEMI: Elevated troponin. Likely due to demand ischemia in the setting of bacteremia, suspected endocarditis, and severely stenotic bioprosthetic aortic valve. Cannot exclude underlying coronary disease. He did not present with acute coronary syndrome and there has not been any reported or suspicion for chest pain. 7. Stroke: Cannot exclude that strokes are embolic from endocarditis. As per primary hospitalist service. 8. Disposition: Suggested/recommended palliative care consultation to patient's . She made it clear that she once his pain adequately controlled and for him to be comfortable. His daughter also expressed desire for medical therapy to improve his quality of life until "the end." Palliative care consultation will be placed. Cardiology will sign off at this time. Please call with any questions or concerns in the future. Patient care communicated with Dr. Rawls of the primary hospitalist service. Patient care also communicated with nursing staff. Highly complex medical issues. Thank you for allowing me to participate in the care of your patient. Please call for any other questions or concerns. Sincerely, Kelvin Ang M.D. History of Present Illness Reason for Consultation: Concern for endocarditis, requesting transesophageal echo Requesting Physician: Jt Rawls MD Attending Physician: Jt Rawls MD History of Present Illness Mr. Lopez is an 84-year-old gentleman with bicuspid aortic valve with severe aortic stenosis s/p bioprosthetic aortic valve (2013), thoracic aortic aneurysm repair (2013), hypertension, dyslipidemia, stroke, sleep apnea, and dementia. His primary cardiology provider is Husamterese Lara PA-C. He was hospitalized on 12/30/2024 with back pain and reported fever at his living facility with a temperature of 101 F. Unfortunately, given his dementia, he provides no history. When asked questions, he would begin to talk but his speech was indiscernible and he did not appear to be answering questions appropriately. History was gathered by speaking with nursing staff, speaking with his at the bedside, and his daughter via speaker phone, as well as reviewing records. He has been having issues with recurrent bacteremia with blood cultures on 12/30/2024 again positive for Enterococcus. He has been seen by infectious disease most recently on 11/08/2024 while hospitalized. There has been concern in the past with discitis/osteomyelitis and also prosthetic aortic valve endocarditis. MOIZ has been deferred in the past due to goals of care per records. There has not been any reported chest pain or shortness of breath. His states that he appears to be more comfortable in regards to his back pain. Family reported that he does not do well with sedation and has issues with mental status change and hallucinations following sedation in the past. Review of systems: Unobtainable due to patient's mental status. Family history: Noncontributory. Social history: . No smoking history per records. Resides at [facility]. His was present at the bedside and his daughter participated via speaker phone. Allergies Allergy/AdvReac Type Severity Reaction Status Date / Time codeine AdvReac Intermediate GI SYMPTOMS Verified 10/26/24 15:47 Opioids - Morphine Analogues AdvReac Intermediate Vomiting Verified 10/26/24 15:47 Opioids-Meperidine and AdvReac Intermediate Vomiting Verified 10/26/24 15:47 Related Opioids-Methadone and Related AdvReac Intermediate Vomiting Verified 10/26/24 15:47 oxycodone [From Percocet] AdvReac Intermediate n/v Verified 10/26/24 15:47 Anesthesia AdvReac Severe Vomiting Uncoded 10/26/24 15:47 Home Medications Medication Instructions Recorded Confirmed Type cranberry 500 mg capsule 500 mg PO QDD 12/05/23 12/30/24 History mirabegron 25 mg tablet,extended 25 mg PO QAM 09/12/24 12/30/24 History release 24 hr (Myrbetriq) Lactobacillus rhamnosus GG 10 1 cap PO QAM 10/26/24 12/30/24 History billion cell capsule acetaminophen 325 mg tablet 650 mg PO Q4H PRN PAIN/FEVER >100F 10/26/24 12/30/24 History (Tylenol) acetaminophen 325 mg tablet 650 mg PO TID 10/26/24 12/30/24 History (Tylenol) lidocaine 4 % topical patch 1 patch topical DAILY 10/26/24 12/30/24 History folic acid 1 mg tablet 1 mg PO QAM 30 days #30 tabs 11/09/24 12/30/24 Rx multivitamin with minerals 1 tab PO DAILY #30 tabs 11/09/24 12/30/24 Rx (Multiple Vitamin-Minerals tablet) aspirin 81 mg chewable tablet 81 mg PO QAM 12/30/24 12/30/24 History cholecalciferol (vitamin D3) 25 25 mcg PO QAM 12/30/24 12/30/24 History mcg (1,000 unit) tablet (Vitamin D3) ferrous sulfate 325 mg (65 mg 325 mg PO BID 12/30/24 12/30/24 History iron) tablet menthol 0.44 %-zinc oxide 20.6 % 1 applic topical . NEEDED PRN 12/30/24 12/30/24 History topical ointment (Calmoseptine) incontinent episodes menthol 0.44 %-zinc oxide 20.6 % 1 applic topical QS 12/30/24 12/30/24 History topical ointment (Calmoseptine) omadacycline 150 mg tablet (Nuzyra) 300 mg PO QAM 12/30/24 12/30/24 History pantoprazole 40 mg tablet,delayed 40 mg PO QAM 12/30/24 12/30/24 History release (Protonix) simethicone 80 mg chewable tablet 80 mg PO Q6 PRN Abdominal 12/30/24 12/30/24 History Distention vancomycin 50 mg/mL oral solution 125 mg PO DAILY 12/30/24 12/30/24 History Problem List (Updated 01/02/25 @ 14:18 by Luis A Ang MD) Paroxysmal atrial tachycardia Stenosis of prosthetic aortic valve Acute bacterial endocarditis Metabolic encephalopathy Embolic stroke Bacteremia Bilateral carotid artery disease (Acute) Urinary tract infection (Acute) Acute non-ST elevation myocardial infarction (NSTEMI) (Acute) Stroke-like symptom (Acute) Acute alteration in mental status (Acute) Discitis of thoracolumbar region Failure to thrive in adult Parainfluenza infection Acute hypoxic respiratory failure (Acute) AMS (altered mental status) (Acute) Multifocal pneumonia (Acute) Sepsis (Acute) Severe protein-calorie malnutrition VRE (vancomycin-resistant Enterococci) infection Endocarditis Bacteremia Osteomyelitis Lumbar stress fracture Infection due to vancomycin resistant Enterococcus faecium Gram-positive bacteremia Leukocytosis (Acute) Back pain (Acute) Hematuria Urinary retention Recurrent Clostridioides difficile diarrhea Abnormal CT scan, colon Aneurysm of aortic arch Depression with anxiety (Chronic) Obstructive sleep apnea (Chronic) Polyneuropathy (Chronic) Renal cyst, acquired (Acute) Seizure disorder (Chronic) Sensorineural hearing loss (SNHL) of both ears (Acute) Dyslipidemia BPH (benign prostatic hyperplasia) PAC (premature atrial contraction) Facet arthritis, degenerative, L5-S1 level, lumbosacral spine Hyponatremia Bicuspid aortic valve Vitamin D deficiency Dementia (Acute) Ambulatory dysfunction (Acute) Anemia Hypertension Patient History Medical History Esophageal candidiasis Fracture of femoral neck, left, closed Bladder stones Low back pain BPPV (benign paroxysmal positional vertigo) Family history of prostate cancer 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 difficile colitis Coronary artery disease involving autologous artery coronary bypass graft Gross hematuria History of bicuspid aortic valve History of TIA (transient ischemic attack) SEPTEMBER 14, 2018 - (USUALLY TIA OCCURS 1X PER YR/STARTED 5 YR AGO)/DR FARRELL History of stroke 2012 - RESIDUAL: STABILITY ISSUE History of anesthesia reaction WITH HERNIA SURGERY ([facility]) HAD TROUBLE WAKING UP Lyme disease Seizure X1 OR 2 - WHEN TX FOR STROKE IN 2012/ DR FARRELL Surgical History S/P hip hemiarthroplasty History of aortic valve replacement History of appendectomy (03/16/13) History of colonoscopy History of hernia surgery X2 History of repair of right rotator cuff H/O aortic valve replacement 2013 - AND BICUSPID VALVE REPLACED AT SAME TIME PER PT REPORT /"OPEN HEART" DENIES HAVING [employer] WORK[employer] THAT HE FOLLOWS WITH H/O aortic aneurysm repair Family History Mother , age 70 of lung cancer Lung cancer COPD (chronic obstructive pulmonary disease) Father , age 91 of prostate cancer Prostate cancer Coronary heart disease Myocardial infarction Family/Other Breast cancer Cancer Other Heart disease No family history of adverse response to anesthesia No family history of bleeding disorder Social History Smoking Status: Never smoker Second Hand Exposure: No; Do You Dip or Chew Tobacco: No; Hx Alcohol Use: No Hx Substance Use: No Preferred Language: Guatemalan Communication Ability: Impaired Communication Ability Comment: , Roxana Lopez, is POA. Visual Impairment: No Limitations Hearing Ability: Normal Hardware Installation Coordinator Required: No Beliefs That Will Affect Care: None marital status: Current Living Situation: Residential Current Living Situation Comment: [facility] current occupational status: retired Feels Safe at Home: Yes Assistive Devices: Mechanical Lift Physical Exam Physical Exam: Gen.: No acute distress. Alert. HEENT: Anicteric sclera. Neck: No JVD. Bilateral bruits vs radiation of cardiac murmur. Normal carotid upstrokes bilaterally. Cardiac: Regular. Normal S1-S2. 2/6 mid peaking systolic ejection murmur heard best at right upper sternal border. Pulmonary: Clear to auscultation bilaterally without wheezes, rales, or rhonchi. Abdomen: Soft, nontender, nondistended, with normoactive bowel sounds. No bruits noted. Extremities: 2+ radial pulses bilaterally. 1+ posterior tibialis pulses bilaterally. No edema or cyanosis. Results & Data Vital Signs (Past 12 Hours) Vital Signs Temp Pulse Pulse Resp BP Pulse Ox O2 Del Method 01/02/25 10:12 36.6 C 100 H 24 110/70 94 Room Air 01/02/25 07:29 37.4 C 98 H 20 108/69 91 Room Air 01/02/25 07:00 98 H 01/02/25 05:09 36.8 C 99 H 22 122/75 96 Room Air Laboratory Results Laboratory Results - last 24 hr 01/02/25 05:45 WBC 8.84 RBC 3.40 L Hgb 9.8 L Hct 29.5 L MCV 86.8 MCH 28.8 MCHC 33.2 RDW Std Deviation 51.8 H RDW Coeff of Stormy 16.4 H Plt Count 139 MPV 9.4 Sodium 134 L Potassium 3.5 Chloride 103 Carbon Dioxide 24 Anion Gap 7 BUN 24 H Creatinine 0.60 Est Cr Clr Drug Dosing 85.0 eGFR 95.19 BUN/Creatinine Ratio 40.0 H Glucose 99 Calcium 8.3 L Diagnostic Findings Telemetry personally reviewed: Predominantly sinus rhythm with nonsustained atrial tachycardia. Echo 12/31/2024: LVEF 50-55%. No regional wall motion abnormalities. Biopro sthetic aortic valve with severely elevated transvalvular gradient (PV 4.8; MG 53; DI 0.14). Mild to moderate MR. Aortic root 4.2 cm. Cannot exclude vegetation involving atrial side of anterior leaflet of mitral valve. Hospital notes reviewed. ECG personally reviewed 12/30/2024: Sinus with PACs 92 bpm. LVH. Septal infarct. Blood cultures from 12/30/2024 reviewed as noted above in HPI. Urine culture 12/30/2024: Pseudomonas and E. coli reported. Labs reviewed and notable for high-sensitivity troponin elevation with a peak of 8266 on 12/30/2024., Normal potassium, stable renal function, stable anemia, normal TSH. Lumbar spine MRI 01/01/2025: Resolved or resolving osteomyelitis/discitis of T12- L1. Per radiology. Brain MRI 12/30/2024: Few small acute infarcts in the left cerebellum (his acknowledged/reported this finding as well) CTA chest 12/30/2024: Aortic root 4.5 cm. No PE. Medications Administered Current Inpatient Medications Aspirin (Aspirin 81 Mg Ectab) 81 mg PO QAM [facility] Stop: 01/30/25 08:59 Last Admin: 01/02/25 07:56 Dose: 81 mg Acetaminophen (Ofirmev) 1,000 mg in 100 mls @ 400 mls/hr IV Q8H PRN PRN Reason: Pain or Fever Stop: 01/02/25 22:31 Last Infusion: 01/01/25 08:07 Dose: Infused Sodium Chloride (Nss) 1,000 mls @ 80 mls/hr IV .[id number] [facility]ENDA Stop: 01/03/25 08:59 Last Admin: 01/02/25 10:23 Dose: 80 mls/hr Piperacillin Sod/Tazobactam Sod (Zosyn) 4.5 gm in 100 mls @ 25 mls/hr IV Q8H [facility]ENDA; Protocol Stop: 01/16/25 11:29 Last Admin: 01/02/25 12:16 Dose: 25 mls/hr Daptomycin 600 mg/ Syringe 12 mls @ 6 mls/min IV Q24H BRENDA; Protocol Stop: 01/16/25 21:59 Miscellaneous Information (Pharmacist Discharge Med Rec Consult) 1 each N/A UD PRN PRN Reason: Consult Stop: 01/30/25 03:07 Ondansetron HCl (Ondansetron Inj 2 Mg/Ml 2 Ml Vial) 4 mg IV Q6H PRN PRN Reason: Nausea Stop: 01/30/25 00:21 Pantoprazole Sodium (Pantoprazole 40 Mg Tab) 40 mg PO QAM [facility] Stop: 02/01/25 08:59 Last Admin: 01/02/25 08:52 Dose: Not Given PG Care Time/CCT Total # of Minutes Spent Total Time Spent with Patient: Total time spent is greater than 50% in coordination of care (as documented) at patient's floor/unit and/or counseling patient: Coding Level of Care Code 14919 INT INP/OBS CARE 3/75MIN Diagnoses Acute bacterial endocarditis I33.0 Bacteremia R78.81 Acute non-ST elevation myocardial infarction (NSTEMI) I21.4 Stenosis of prosthetic aortic valve T82.857A Paroxysmal atrial tachycardia I47.19
[2025-01-02] MEDS: DAPTOmycin 600 MG in SYRINGE 0 ML IV SCH (21:43)
[2025-01-03 06:20] LABS: Hematocrit (blood only) 31.7 % (42.0-52.0); Hemoglobin 10.5 g/dl (14.0-18.0); Immature Granulocytes # (auto) 0.03 K/uL (0.01-0.20); Immature Granulocytes % (auto) 0.4 %; Mean Corpuscular Hemoglobin 29.4 pg (25.0-34.0); Mean Corpuscular Volume 88.8 fL (80.0-100.0); Platelet Count 144 K/uL (130-400); RDW Standard Deviation 53.6 fL (36.4-46.3); Red Blood Count 3.57 M/uL (4.70-6.10); White Blood Count 7.17 K/ul (4.8-10.8)
[2025-01-03 06:37] LABS: Anion Gap 6.0 (3-11); Blood Urea Nitrogen 23.0 mg/dl (6-23); Calcium 8.2 mg/dl (8.6-10.3); Carbon Dioxide 24.0 mmol/L (21-32); Chloride 105.0 mmol/L (98-107); Creatinine Clr Calc Pharmacy 87.6 ml/min; Glucose 99.0 mg/dl (70-99(Fasting)); Potassium 3.4 mmol/L (3.5-5.1); Sodium 135.0 mmol/L (136-145)
--- NOTE | 2025-01-03 09:04 | Palliative Care Consultation ---
Date of Consultation January 03, 2025 Assessment & Plan (1) Palliative care by specialist: Met with pt's and daughter in 2E conference room from 14:15 - 13:15 to discuss goals of care. Introduced Palliative Medicine and explained our role in advanced care planning, symptom management and navigation through the progression of life limiting disease. Family was receptive to palliative services for goals of care discussions. Reviewed we are different from hospice, a home health nurse visiting service. (2) Counseling regarding goals of care: [facility] discussion held with Candida, topics discussed in layman's terms included (not limited to) pt's current hospital course, comorbidities, baseline dementia, frequent admissions for bacteremia without possibility of source control and deconditioning of chronic illness and immobility. We discussed how all these factors may work against pt in his recovery from current and future infections/sepsis. Spent a substantial amount of time discussing the progressively debilitating nature of dementia. Explained that dementia is incurable and irreversible, and can include progressive/worsening memory loss, confusion, language difficulties/lack of comprehension skills/loss of verbal skills eventually, mood changes, impaired judgment, trouble with motor skills/coordination/balance issues, visual and spatial problems, hallucinations, and personality changes. The rate of progression in mixed dementia can vary widely from person to person. Factors such as the types of dementia involved, overall health, and genetics can influence the speed of progression. Some individuals experience a more gradual decline, while others may progress more rapidly through the stages. We discussed and differentiated dementia from delirium and helped family understand that they can co-exist. I reviewed Dementia is a terminal illness. Aggressive medical treatment for patients with advanced dementia is often inappropriate for medical reasons, has a low rate of success, and can have negative outcomes that hasten functional decline and . ([place] [employer] Ethics Committee and Clinical Practice and Models of Care Committee. J Am Geriatr Soc. 2014 Aug;62(8):1590-3 and Terrence SL, Harlano JM, Kim SC, Rakan V. A national study of the location of for older persons with dementia. J Am Geriatr Soc 2005; 53(2):299-305.). Helped them understand differences between dementia and delirium. Discussed typical progression of dementia and how it may be staged. Stage 1: Normal Functioning: In the early stage, individuals show no signs of dementia, and their cognitive function is normal Stage 2: Very Mild Cognitive Decline: Minor memory lapses and forgetfulness may occur but are often attributed to normal aging Stage 3: Mild Cognitive Decline: Early signs of dementia become more noticeable, such as memory problems and difficulty finding words Stage 4: Moderate Cognitive Decline: Memory loss becomes more pronounced, and individuals may struggle with tasks like managing finances and planning Stage 5: Moderately Severe Cognitive Decline: Daily functioning becomes challenging, and individuals may require assistance with tasks like dressing and bathing Stage 6: Severe Cognitive Decline: In this stage, individuals need substantial help with daily activities, and communication becomes increasingly difficult Stage 7: Very Severe Cognitive Decline: In the final stage, individuals may lose the ability to communicate, walk, and perform basic tasks. They require dzbkr-dqn-mipda care. Older adults with dementia frequently receive acute care in their last year of life although Hospice care was more common for home/[facility] residents. Overall time in hospice remains short due to the underutilization of the hospice benefit for terminal dementia (Jany MM, Franco JM, Daryl KM, Mahesh DE, Kayla PY. Dementia Care in the Last Year of Life: Experiences in a Community Practice and in Half-Way Facilities. J Palliat Care. 2022;38(2):135-142. doi:10.1177/[id number]) Home Hospice is a valuable option for terminal dementia who desire to have peaceful EOL at home. Home hospice care for advanced dementia can improve symptom management and caregiver satisfaction, while decreasing caregiver burden, preventing hospitalizations and discontinuing unnecessary medication (Preston FALK, Kiran R, Hugh G, et al. Home hospice for older people with advanced dementia: a ferry pilot project [published correction appears in Isr J Health Policy Res. 2019 Dec 07;8(1):56]. Isr J Health Policy Res. 2019;8(1):42. Published 2018October 12. doi:10.1186/[id number]). Renita identified the patient as in stage 5 bordering on 6 in his dementia, although she did admit that here in the hospital he appear to be Stage 6. We discussed that in late stages of dementia, poor PO intake and decreased mobility puts patient's at higher risk of injury and infection but also makes recovery of these insults more difficult resulting in frequent ED visits and admissions. We discussed the utilization of hospice services in stages 6 and 7 to optimize patient comfort and focus on quality of life vs quantity of days. Both Renita and Roxana shared that they are thankful for the information and they realize that they need to start focus on where the patient would draw the line on continuing to prolong life. Both adamantly stated that they would not pursue a PEG tube or any "forced feedings" because these are not c/w pt wishes. They shared that they have been in touch with hospice team at [facility] and at this time they would like to start making plans toward transition to hospice care for the future. They shared that they would like to allow the pt to transition to oral ABx and see if he can have some quality of life before he again develops septicemia. (3) POLST (Physician Orders for Life-Sustaining Treatment): Discussed with Roxana and Renita the pt's POLST form on file that indicates DNR/DNI, limited additional interventions, no artificial nutrition or hydration, and ABx as needed. Both confirm that this is consistent with their current plans/wishes as well as pt's values and GOC. (4) Advance directive in chart: Patient currently lacks decisional capacity based on the inability to convey understanding of personal PMHx, current medical condition, treatment options nor the risks / benefits/ potential outcomes of accepting/declining those options, and inability to make decisions based on such knowledge. Hospital does have written documentation of patient wishes concerning his chosen proxy for medical decisions. AD paperwork on file which was properly executed by patient on 04/30/23 designates patient's Spouse Roxana Lopez ([phone]) as primary HCPOA and his daughter Radha Higginbotham ([phone]) as secondary HCPOA for all medical decisions in the event [] lacks decisional capacity. Pt does require a proxy for medical decisions and given the progressively debilitating nature of dementia, I suspect this will continue through his life span. Pt's Roxana and daughter Renita are both present and agreeable to serving as proxy for medical decisions. Plan continue current level of care, family hopeful for successful transition from IV ABx to PO prophylactic Abx and discharge back to [facility]. History of Present Illness Reason for Consultation: goals of care Requesting Physician: Richard Jefferson Attending Physician: Richard Jefferson History of Present Illness Mr. Lopez is an 84 yo male who lives presented to ED via ambulance from [facility] for AMS/rigors preceded by c/o intense low back pain and yelling out due to pain.. 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 Pt has had recent hospital admissions for recurrent bacteremic infections and recently finished a long course of IV antibiotics. At bedside is pt's and daughter who provide pt history and recent events. Pt had been doing well from a cognitive and health stand point per daughter after completing his last round of IV antibiotics. Pt follows with ID in outpatient setting and was prescribed omadacycline prophylactically, which was to start after finishing IV course. However, pt was unable to obtain new med due insurance coverage until 12/26/24. Cardiology was consulted and family declined any invasive diagnostics or interventions for what is likely recurrent sepsis from cardiac source. Allergies Allergy/AdvReac Type Severity Reaction Status Date / Time codeine AdvReac Intermediate GI SYMPTOMS Verified 10/26/24 15:47 Opioids - Morphine Analogues AdvReac Intermediate Vomiting Verified 10/26/24 15:47 Opioids-Meperidine and AdvReac Intermediate Vomiting Verified 10/26/24 15:47 Related Opioids-Methadone and Related AdvReac Intermediate Vomiting Verified 10/26/24 15:47 oxycodone [From Percocet] AdvReac Intermediate n/v Verified 10/26/24 15:47 Anesthesia AdvReac Severe Vomiting Uncoded 10/26/24 15:47 Home Medications Medication Instructions Recorded Confirmed Type cranberry 500 mg capsule 500 mg PO QDD 12/05/23 12/30/24 History mirabegron 25 mg tablet,extended 25 mg PO QAM 09/12/24 12/30/24 History release 24 hr (Myrbetriq) Lactobacillus rhamnosus GG 10 1 cap PO QAM 10/26/24 12/30/24 History billion cell capsule acetaminophen 325 mg tablet 650 mg PO Q4H PRN PAIN/FEVER >100F 10/26/24 12/30/24 History (Tylenol) acetaminophen 325 mg tablet 650 mg PO TID 10/26/24 12/30/24 History (Tylenol) lidocaine 4 % topical patch 1 patch topical DAILY 10/26/24 12/30/24 History folic acid 1 mg tablet 1 mg PO QAM 30 days #30 tabs 11/09/24 12/30/24 Rx multivitamin with minerals 1 tab PO DAILY #30 tabs 11/09/24 12/30/24 Rx (Multiple Vitamin-Minerals tablet) aspirin 81 mg chewable tablet 81 mg PO QAM 12/30/24 12/30/24 History cholecalciferol (vitamin D3) 25 25 mcg PO QAM 12/30/24 12/30/24 History mcg (1,000 unit) tablet (Vitamin D3) ferrous sulfate 325 mg (65 mg 325 mg PO BID 12/30/24 12/30/24 History iron) tablet menthol 0.44 %-zinc oxide 20.6 % 1 applic topical . NEEDED PRN 12/30/24 12/30/24 History topical ointment (Calmoseptine) incontinent episodes menthol 0.44 %-zinc oxide 20.6 % 1 applic topical QS 12/30/24 12/30/24 History topical ointment (Calmoseptine) omadacycline 150 mg tablet (Nuzyra) 300 mg PO QAM 12/30/24 12/30/24 History pantoprazole 40 mg tablet,delayed 40 mg PO QAM 12/30/24 12/30/24 History release (Protonix) simethicone 80 mg chewable tablet 80 mg PO Q6 PRN Abdominal 12/30/24 12/30/24 History Distention vancomycin 50 mg/mL oral solution 125 mg PO DAILY 12/30/24 12/30/24 History Patient History Medical History Esophageal candidiasis Fracture of femoral neck, left, closed Bladder stones Low back pain BPPV (benign paroxysmal positional vertigo) Family history of prostate cancer Squamous cell carcinoma of right lower leg Dementia with agitation Chronic indwelling Martinez catheter C. difficile colitis Coronary artery disease involving autologous artery coronary bypass graft Gross hematuria History of bicuspid aortic valve History of TIA (transient ischemic attack) SEPTEMBER 14, 2018 - (USUALLY TIA OCCURS 1X PER YR/STARTED 5 YR AGO)/DR FARRELL History of stroke 2012 - RESIDUAL: STABILITY ISSUE History of anesthesia reaction WITH HERNIA SURGERY ([facility]) HAD TROUBLE WAKING UP Lyme disease Seizure X1 OR 2 - WHEN TX FOR STROKE IN 2012/ DR FARRELL Surgical History S/P hip hemiarthroplasty History of aortic valve replacement History of appendectomy (03/16/13) History of colonoscopy History of hernia surgery X2 History of repair of right rotator cuff H/O aortic valve replacement 2013 - AND BICUSPID VALVE REPLACED AT SAME TIME PER PT REPORT /"OPEN HEART" 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 H/O aortic aneurysm repair Family History Mother , age 70 of lung cancer Lung cancer COPD (chronic obstructive pulmonary disease) Father , age 91 of prostate cancer Prostate cancer Coronary heart disease Myocardial infarction Family/Other Breast cancer Cancer Other Heart disease No family history of adverse response to anesthesia No family history of bleeding disorder Social History Smoking Status: Never smoker Second Hand Exposure: No; Do You Dip or Chew Tobacco: No; Hx Alcohol Use: No Hx Substance Use: No Preferred Language: Pakistani Communication Ability: Impaired Communication Ability Comment: , Roxana Lopez, is POA. Visual Impairment: No Limitations Hearing Ability: Normal Material Man Required: No Beliefs That Will Affect Care: None marital status: Current Living Situation: Assisted Current Living Situation Comment: [employer] [facility] current occupational status: retired Feels Safe at Home: Yes Assistive Devices: Mechanical Lift Review of Systems Review of Systems: All systems reviewed & are unremarkable except as noted in HPI & below Physical Exam Physical Exam: sleeping, snoring but in NAD on nasal canula. Constitutional: + ill appearing, + thin and + frail appe aring; no acute distress Eyes: PERRL, conjunctivae normal, anicteric sclerae Neck: trachea midline, no thyromegaly Respiratory: normal respiratory effort, lungs clear to auscultation Cardiovascular: RRR, no murmur, no edema Gastrointestinal (Abdomen): normal bowel sounds, soft, nontender, no hepatosplenomegaly Psychiatric: Orientation: alert and oriented to person Results & Data Vital Signs (Past 12 Hours) Vital Signs Temp Pulse Pulse Resp BP Pulse Ox O2 Del Method 01/03/25 07:54 36.7 C 85 34 H 110/75 95 Room Air 01/03/25 03:05 36.7 C 90 21 116/78 95 Room Air 01/02/25 23:32 37.5 C 97 H 23 109/76 94 Room Air 01/02/25 21:47 90 Laboratory Results Abnormal lab results 01/03/25 Range/Units 05:57 RBC 3.57 L (4.70-6.10) M/uL Hgb 10.5 L (14.0-18.0) g/dl Hct 31.7 L (42.0-52.0) % RDW Std Deviation 53.6 H (36.4-46.3) fL RDW Coeff of Stormy 16.5 H (11.5-14.5) % MPV 9.1 L (9.4-12.4) fL Shelby # (Auto) 0.68 H (0.11-0.59) K/uL Sodium 135 L (136-145) mmol/L Potassium 3.4 L (3.5-5.1) mmol/L Creatinine 0.58 L (0.6-1.4) mg/dl BUN/Creatinine Ratio 39.7 H (10-20) Calcium 8.2 L (8.6-10.3) mg/dl Diagnostic Findings Chest X-Ray 12/30/24 19:55 Exam(s): XR CXR 1 VIEW EXAM: XR Chest, 1 View CLINICAL HISTORY: Reason for exam: Sepsis. TECHNIQUE: Frontal view of the chest. COMPARISON: 11/01/2024 FINDINGS: Lungs: Lungs are well inflated with slightly prominent interstitial markings. The previously seen edema has resolved. No acute infiltrate or effusion identified. Pleural space: Unremarkable. No pneumothorax. Heart: See below. Mediastinum: Unremarkable. Normal mediastinal contour. 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 The cardiac silhouette is mildly enlarged, unchanged. No acute fracture. Upper abdomen: Unremarkable as visualized. No pneumoperitoneum under the diaphragm. IMPRESSION: 1. Lungs are well inflated with slightly prominent interstitial markings. The previously seen edema has resolved. No acute infiltrate or effusion identified. 2. 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 The cardiac silhouette is mildly enlarged, unchanged. Electronically signed by: Slick Cain MD 12/30/24 20:[address] 12/30/24 19:55 Exam(s): CT HEAD Without Contrast EXAM: CT Head Without Intravenous Contrast CLINICAL HISTORY: Reason for exam: stroke. TECHNIQUE: Axial computed tomography images of the head/brain without intravenous contrast. CTDI is 36 mGy and DLP is 1165 mGy-cm. Automated exposure control was utilized for the study. A dose lowering technique was utilized adhering to the principles of ALARA. COMPARISON: No relevant prior studies available. FINDINGS: Brain: Mild cerebral atrophy and periventricular white matter low density consistent with chronic small vessel disease and/or senescent changes. No acute large vessel infarct or intracranial hemorrhage is seen. Ventricles: Mildly dilated. No mass or hemorrhage. Bones/joints: Unremarkable. No acute fracture. Soft tissues: Unremarkable. Sinuses: Unremarkable as visualized. No acute sinusitis. Mastoid air cells: Unremarkable as visualized. No mastoid effusion. IMPRESSION: Mild cerebral atrophy and periventricular white matter low density consistent with chronic small vessel disease and/or senescent changes. No acute large vessel infarct or intracranial hemorrhage is seen. Electronically signed by: Slick Cain MD 12/30/24 21:00 PM Head CTA 12/30/24 19:55 Exam(s): CTA HEAD With Contrast EXAM: CT Head With Intravenous Contrast CLINICAL HISTORY: Reason for exam: stroke. TECHNIQUE: Axial computed tomographic images of the head with intravenous contrast. CTDI is the 36 mGy and DLP is 1165 mGy-cm. Automated exposure control was utilized for the study. A dose lowering technique was utilized adhering to the principles of ALARA. CONTRAST: Information not available. Critical stroke study. COMPARISON: Precontrast study from today. FINDINGS: Right internal carotid artery: Calcified plaque causing 20% stenosis of the distal right internal carotid artery. No aneurysm. Right anterior cerebral artery: Unremarkable. No occlusion or significant stenosis. No aneurysm. Right middle cerebral artery: Unremarkable. No occlusion or significant stenosis. No aneurysm. Right posterior cerebral artery: Unremarkable. No occlusion or significant stenosis. No aneurysm. Right vertebral artery: The distal vertebral arteries are tortuous but widely patent. Left internal carotid artery: Calcified plaque causing 25% stenosis of the distal left internal carotid artery. No aneurysm. Left anterior cerebral artery: Unremarkable. No occlusion or significant stenosis. No aneurysm. Left middle cerebral artery: Unremarkable. No occlusion or significant stenosis. No aneurysm. Left posterior cerebral artery: Unremarkable. No occlusion or significant stenosis. No aneurysm. Left vertebral artery: See above. Basilar artery: The basilar artery is mildly tortuous but widely patent. No occlusion or significant stenosis. No aneurysm. IMPRESSION: 1. Up to 25% stenosis of the distal internal carotid arteries bilaterally. 2. The anterior, middle, and posterior cerebral arteries are within normal limits. No aneurysm, vascular malformation, or large vessel occlusion is identified. Electronically signed by: Slick Cain MD 12/30/24 21:09 PM Neck CTA 12/30/24 19:55 Exam(s): CTA NECK With Contrast EXAM: CT Neck With Intravenous Contrast CLINICAL HISTORY: Reason for exam: Stroke. TECHNIQUE: Routine carotid CT protocol was performed with intravenous contrast. NASCET criteria using the distal ICAs for comparison were used for evaluation of stenoses. CTDI is 36 mGy and DLP is 1165 mGy-cm. Automated exposure control was utilized for the study. A dose lowering technique was utilized adhering to the principles of ALARA. CONTRAST: Information not available. Critical stroke study. COMPARISON: None. FINDINGS: VASCULATURE: Right common carotid artery: Calcified plaque causing 30% stenosis of the distal right common carotid artery. No dissection. Right internal carotid artery: 30% stenosis of the proximal right internal carotid artery. The distal right internal carotid artery is tortuous but widely patent. No dissection. Right external carotid artery: Unremarkable. No occlusion. Right vertebral artery: Unremarkable. No occlusion or significant stenosis. No dissection. Left common carotid artery: 25% stenosis of the distal left common carotid artery. No dissection. Left internal carotid artery: 20% stenosis of the proximal left internal carotid artery. The distal left internal carotid artery is tortuous but widely patent. No dissection. Left external carotid artery: Unremarkable. No occlusion. Left vertebral artery: Unremarkable. No occlusion or significant stenosis. No dissection. Aorta: The aortic arch is mildly calcified but nondilated. There is no aneurysm or dissection. NECK: Bones/joints: Mild multilevel degenerative disc disease and facet arthrosis throughout the cervical spine. No acute fracture or subluxation is seen. Soft tissues: Unremarkable. Lung apices: Clear. CAROTID STENOSIS REFERENCE USING NASCET CRITERIA: % ICA stenosis = (1 - narrowest ICA diameter/diameter of distal cervical ICA) x 100. Mild - <50% stenosis. Moderate - 50-69% stenosis. Severe - 70-94% stenosis. Near occlusion - 95-99% stenosis. Occluded - 100% stenosis. IMPRESSION: 1. 30% stenosis of the proximal right internal carotid artery. 2. 20% stenosis of the proximal left internal carotid artery. Electronically signed by: Slick Cain MD 12/30/24 21:03 PM Abdomen/Pelvis CT 12/30/24 20:01 Exam(s): CT ABDOMEN + PELVIS With Contrast IV Amt: 119ml optiray 320 EXAM: CT Abdomen and Pelvis With Intravenous Contrast CLINICAL HISTORY: Reason for exam: ams. TECHNIQUE: Axial computed tomography images of the abdomen and pelvis with intravenous contrast. CTDI is 36 mGy and DLP is 1165 mGy-cm. Automated exposure control was utilized for the study. A dose lowering technique was utilized adhering to the principles of ALARA. CONTRAST: Patient received 119ml optiray 320 of IV contrast COMPARISON: No relevant prior studies available. FINDINGS: Lung bases: Unremarkable. No mass. No consolidation. ABDOMEN: Liver: Unremarkable. No mass. Gallbladder and bile ducts: Unremarkable. No calcified stones. No ductal dilation. Pancreas: Unremarkable. No mass. No ductal dilation. Spleen: Unremarkable. No splenomegaly. Adrenals: Unremarkable. No mass. Kidneys and ureters: 2.9 cm simple cysts in the right kidney. No follow-up is required. No hydronephrosis. Stomach and bowel: Bowel loops are nondilated. There is a relatively large amount of stool in the right colon measuring up to 7 cm suggesting possible mild constipation. No pneumoperitoneum, free fluid, or acute inflammatory changes are seen involving the bowel. No mucosal thickening. PELVIS: Appendix: No findings to suggest acute appendicitis. Bladder: The urinary bladder is decompressed by Martinez catheter and otherwise unremarkable. Reproductive: Unremarkable as visualized. ABDOMEN and PELVIS: Intraperitoneal space: See above. Bones/joints: Metal artifact from left hip arthroplasty. There are [id number] osteoarthritic changes of the right hip. No hip or pelvic fracture is seen. Ctxu-hb-[id number] degenerative changes in the lumbar spine including spondylolysis at L5 without spondylolisthesis. No acute fracture is seen. No dislocation. Soft tissues: Unremarkable. Vasculature: The abdominal aorta is moderately calcified but nondilated. There is no aneurysm or dissection. Lymph nodes: Unremarkable. No enlarged lymph nodes. IMPRESSION: Bowel loops are nondilated. There is a relatively large amount of stool in the right colon measuring up to 7 cm suggesting possible mild constipation. No pneumoperitoneum, free fluid, or acute inflammatory changes are seen involving the bowel. Electronically signed by: Slick Cain MD 12/30/24 21:37 PM Chest CTA 12/30/24 20:01 Exam(s): CTA CHEST IV Amt: 119ml optiray 320 EXAM: CT Angiography Chest With Intravenous Contrast CLINICAL HISTORY: Reason for exam: PE. TECHNIQUE: Axial computed tomographic angiography images of the chest with intravenous contrast. CTDI is 36 mGy and DLP is 1165 mGy-cm. Automated exposure control was utilized for the study. A dose lowering technique was utilized adhering to the principles of ALARA. MIP reconstructed images were created and reviewed. COMPARISON: No relevant prior studies available. FINDINGS: Pulmonary arteries: The pulmonary arterial tree is well opacified with contrast. No pulmonary emboli are identified. Aorta: The thoracic aorta is mildly calcified. There is a prosthetic aortic valve with 4.5 cm ectasia of the aortic root. There are calcified suture lines indicating previous surgical repair of the ascending aorta without residual aneurysm or dissection. The descending thoracic aorta is nondilated. Lungs: Scattered linear densities in both lung bases consistent with subsegmental atelectasis. Some component of edema and fibrosis may also be present. No mass. Pleural space: Unremarkable. No significant effusion. No pneumothorax. Heart: The heart is mildly enlarged. No pericardial effusion is seen. No evidence of RV dysfunction. Bones/joints: Mild multilevel degenerative changes throughout the spine. No acute fracture or destructive bone lesion is seen. No dislocation. Soft tissues: Unremarkable. Lymph nodes: Unremarkable. No enlarged lymph nodes. IMPRESSION: 1. The thoracic aorta is mildly calcified. There is a prosthetic aortic valve with 4.5 cm ectasia of the aortic root. There are calcified suture lines indicating previous surgical repair of the ascending aorta without residual aneurysm or dissection. The descending thoracic aorta is nondilated. 2. Scattered linear densities in both lung bases consistent with subsegmental atelectasis. Some component of edema and fibrosis may also be present. 3. The pulmonary arterial tree is well opacified with contrast. No pulmonary emboli are identified. Electronically signed by: Slick Cain MD 12/30/24 21:44 PM Brain MRI 12/30/24 22:37 EXAM: MR brain seizure wo/w con CLINICAL HISTORY: unresponsive, rule out CVA TECHNIQUE: Multisequential and multiplanar images of the brain were submitted for review without and with contrast. 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 Generalized parenchymal atrophy is appreciated. Scattered foci of increased T2/FLAIR signal abnormality are identified within the bilateral periventricular and subcortical white matter, and are most commonly associated with chronic small vessel ischemic disease. No focal parenchymal lesions are seen. No intracranial hemorrhage, mass effect, midline shift, extra-axial collection, or hydrocephalus is identified. Ventricles, sulci, and basal cisterns are symmetric and normal in size and configuration. Midline structures including the pituitary gland, corpus callosum, pineal region, and brainstem are unremarkable. No evidence of any enhancing mass or abnormal enhancement seen. The craniovertebral junction is within normal limits. No calvarial abnormalities are identified. The paranasal sinuses and mastoid air cells are clear. Orbital structures are unremarkable. Appropriate flow voids are present in the visualized intracranial vessels. IMPRESSION: 1. 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 New finding 2. 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 Electronically signed by Steve Cody 12-31-2024 03:04 AM Lumbar Spine MRI 01/01/25 12:10 Lumbar spine MRI without IV contrast History: History of lumbar infection Comparison: MRI from September 17, 2024 Technique: Sagittal T1-weighted, sagittal STIR, 3D volumetric axial and sagittal reconstructed T2-weighted images of the lumbar spine were obtained without intravenous contrast. Findings: There are 5 lumbar-type vertebrae assumed for the purposes of this dictation. The tip of the conus medullaris is at L1. Normal lumbar vertebral alignment. There is multilevel degenerative disc height loss, which is similar to prior, and overall moderate at the T12-L1, L1-L2, L4-L5, and L5-S1 levels. There may be mild disc height loss at L2-L3 and L3-L4. Significant interval decrease in the signal abnormality at the T12-L1 endplates, with both decreased size as well as signal intensity from prior. There continues to be subtle low T1 signal abnormality, especially the inferior T12 endplate. There are a few tiny foci of high signal intensity within the disc space, otherwise the diffuse high signal abnormality on prior is resolved. There is no abnormality in the spinal canal at this level. Similar-appearing multilevel degenerative changes, including small disc bulges, facet arthropathy and ligamentum flavum thickening. There is again moderate right and severe left neuroforaminal narrowing at L3-4, severe right and moderate to severe left neuroforaminal narrowing at L4-5, and moderate to severe bilateral neuroforaminal narrowing at L5-S1. Paraspinous tissues are within normal limits. Note: The following findings are common in the absence of low back pain and while we report their presence, they must be interpreted with caution and in the context of the clinical situation. (Reference -Jolantavik et al, Spine 2001) Findings (prevalence in patients without low back pain) Disc degeneration (decreased T2 signal, height loss, bulge) (91%) Disc T2 - signal loss (83%) Disc height loss (56%) Disc bulge (64%) Disc protrusion (32%) Annular tear (38%). Impression: Significant interval decrease in signal abnormality at the T12-L1 level from prior, which may represent resolved or resolving osteomyelitis/discitis. Some residual high STIR signal change at this level suggest some mild ongoing inflammation. Electronically signed by Felix Pal 01-01-2025 2:25 PM Medications Administered Current Inpatient Medications Aspirin (Aspirin 81 Mg Ectab) 81 mg PO QAM [facility] Stop: 01/30/25 08:59 Last Admin: 01/02/25 07:56 Dose: 81 mg Piperacillin Sod/Tazobactam Sod (Zosyn) 4.5 gm in 100 mls @ 25 mls/hr IV Q8H [facility]; Protocol Stop: 01/16/25 11:29 Last Infusion: 01/03/25 08:05 Dose: Infused Daptomycin 600 mg/ Syringe 12 mls @ 6 mls/min IV Q24H [facility]; Protocol Stop: 01/16/25 21:59 Last Admin: 01/02/25 21:43 Dose: 6 mls/min Lorazepam (Lorazepam 2 Mg/1 Ml Vial) 0.5 mg IV Q6H PRN PRN Reason: Anxiety/Agitation Stop: 02/01/25 14:43 Last Admin: 01/02/25 14:56 Dose: 0.5 mg Miscellaneous Information (Pharmacist Discharge Med Rec Consult) 1 each N/A UD PRN PRN Reason: Consult Stop: 01/30/25 03:07 Ondansetron HCl (Ondansetron Inj 2 Mg/Ml 2 Ml Vial) 4 mg IV Q6H PRN PRN Reason: Nausea Stop: 01/30/25 00:21 Pantoprazole Sodium (Pantoprazole 40 Mg Tab) 40 mg PO QAM [facility] Stop: 02/01/25 08:59 Last Admin: 01/02/25 08:52 Dose: Not Given PG Care Time/CCT Total # of Minutes Spent Total Time Spent with Patient: Total time spent is greater than 50% in coordination of care (as documented) at patient's floor/unit and/or counseling patient: Advanced Care Planning 57661 Advanced Care Planning 30 Min 38487 Advanced Care Planning Additional 30 [place] [address] IN/OBS CONSULT LVL 3,45M Patient Type New History Expanded Problem Focused Exam Expanded Problem Focused Medical Decision Making Moderate Complexity Diagnoses Palliative care by specialist Z51.5 Counseling regarding goals of care Z71.89 POLST (Physician Orders for Life-Sustaining Treatment) Z78.9 Advance directive in chart Z78.9 Additional Codes Advanced Care Planning - 43754 Advanced Care Planning 30 Min: 32536 Advanced Care Planning 30 Min ([id number]) Advanced Care Planning - 72044 Advanced Care Planning Additional 30 Min: 21012 Advanced Care Planning Additional 30 Min ([id number])
--- NOTE | 2025-01-03 10:08 | Infectious Disease Consult ---
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 diff Micro: 12/30 UCx: Pseudomonas (mares-S), ESBL E coli (R cipro, levo. S erta, vicky, TMP/SMX) 12/30 BCx x2: E faecium in 4/ bottles (S dapto, linezolid, vanc MARTA 0.25) 11/02 BCx x2: NG 10/28 BCx x2: E faecium in 1/4 bottles 10/27 Catheter tip cx: NG 10/26 UCx: Pseudomonas, Natacha 10/26 BCx x2: E faecium in 4/4 bottles (S dapto MARTA 4, vanc MARTA 0.25, linezolid MARTA 1. R ampicillin. Also R to doxy, levo per conversation with micro lab) 09/15 BCx x2: E faecium in 3/4 bottles (S dapto MARTA 2, vanc MARTA 0.5. R ampicillin) 09/14 BCx x1: VRE in 2/2 bottles 09/13 BCx x2: VRE in 4/4 bottles 09/12 BCx x2: VRE in 4/4 bottles (S dapto MARTA 4. R vanc MARTA >16, ampicillin) Abx: Dapto 12/30 - present Pip-tazo 12/30 - present 84 yo M resident of [facility], nonverbal, with h/o prior CVA, dementia, seizure, chronic indwelling martinez, recurrent UTIs, paroxysmal atrial tachycardia, bicuspid valve s/p aortic valve replacement/proximal aortic aneurysm repair 2013, left hip replacement in 2022, HTN, prior C. diff infection 07/2023 with recurrence 08/2023, admission 09/12-09/23/24 with back pain with progressive bl LE weakness x few weeks f/w VRE faecium bacteremia (T12-L1 discitis/OM, suspected PVE since MOIZ deferred, TTE neg) on dapto/ampicillin x 6wks (anticipated end 10/27). He was readmitted 10/26-11/09/24 with recurrent E faecium bacteremia while on dapto/ampicillin (10/26, 10/28), acute hypoxic respiratory failure, parainfluenza. During that admission, PICC was removed and catheter tip cx negative. MRI C/T/L spine without new areas of infection. TTE without obvious endocarditis, but severity of mitral regurg appeard to be increased compared to prior. MOIZ deferred given GOC and ineligibility for surgery. CTA chest was performed 11/02 to assess aortic graft material for infection--per radiologist, for ideal assessment, would need to time the contrast differently, but no signs of graft infection on that CT. PICC line was replaced and he was discharged on another 6 week course of daptomycin and ampicillin through 12/13/24, with plan to switch to lifelong supppressive PO antibiotic subsequently. He was subsequently seen at [facility] for ID follow-up with plan to switch to omadacycline for PO suppression after completing IV antibiotic course. Per pt's daughter, pt was looking the best she has seen him on 12/14--sitting up straight in his wheelchair, eating on his own, without back pain. Unfortunately, there were delays with insurance approval, and he was not started on omadacycline until 12/26. He was therefore off antibiotics from 12/14-12/25. During this time, he started getting worse, and by 12/25, he was slumped over, not as engaged, with severe back pain again. He began to have fevers along with AMS, rigors on 12/30 AM, so he presented to the ED, and was found to have recurrent E faecium bacteremia. On presentation, pt was afebrile, hemodynamically stable, RR 10. Labs showed WBC 9.51, normal lactate, AST 70, AST 35, alk phos 109. UA with >50 WBCs. CTAP with contrast showed a mild constipation. CTA chest with no PE, prosthetic aortic bella ve, previous surgical repair of ascending aorta without residual aneurysm or dissection. MRI brain with few small acute infarcts in L cerebellum. MRI L spine without contrast showed significant interval decrease in signal abnormality at T12-L1 level from prior, which may represent resolved or resolving osteomyelitis/discitis, some residual high STIR signal change at this level suggests some mild ongoing inflammation. Pt was started on daptomycin and pip- tazo. BCx grew E faecium. UCx grew Pseudomonas and ESBL E coli. TTE unable to exclude vegetation involving atrial side of anterior leaflet of mitral valve or aortomitral curtain. Pt's family did not want to pursue MOIZ or surgical intervention if endocarditis was noted. Cardiology also feels pt would not be a good surgical candidate, so there was no clear benefit for MOIZ. Discussion: Pt with recurrent E faecium bacteremia after being on dapto and ampicillin from 09/16-12/13 (>12 weeks). Plan had been to transition to a suppressive PO antibiotic, but unfortunately due to delays in insurance approval, pt was not started on omadacycline until 12/26. Pt with AVR and proximal aortic aneurysm repair, which may be sites of persistent infection. TTE raises continued concern for mitral valve endocarditis. Pt also with new small infarcts in cerebellum, may be embolic. Note that pt initially had VRE bacteremia 09/12-09/14, then vanc-sensitive E faecium bacteremia 09/15, 10/26, 10/28, 12/30. May have different phenotypes in E faecium subpopulations? Also uncertain whether we can trust the vanc susceptibility. Will treat with daptomycin. Also currently on meropenem to cover Pseudomonas and ESBL E coli in the urine, but will plan to transition this to ampicillin soon for synergy. Recommendations: - Uncertain significance of Pseudomonas and ESBL E coli in the urine culture--may represent colonizers, but will treat conservatively. Stopped pip- tazo. Started meropenem - Continue dapto, increased to 12 mg/kg given persistent complicated infection. Ordered baseline CK - Ordered repeat blood cultures - Recommend martinez exchange - Starting C diff prophylaxis while on systemic antibiotics Will continue to follow Consultation Information Consultation was provided via telemedicine using two-way real-time interactive telecommunication between the patient and the telemedicine provider. For the duration of the visit, the provider was performing the assessment from a different facility than the patient. This includesuse of bluetooth stethoscope forauscultationperformed by the telepresenter that the telemedicine provider can hear if described in the physical exam. Hypoid Gear Tester contact information: Please call [facility] [phone]. (Phone Number For Physician Use Only) After establishing a telemedicine visit, patient was: Patient was verified with two unique identifiers, Patient/authorized rep acknowledged consent and understanding and Gave permission to continue telehealth session Time Spent with Patient: Initial => 75 min History of Present Illness Reason for Consultation: E faecium bacteremia Attending Physician: Richard Jefferson History of Present Illness 84 yo M resident of [facility], nonverbal, with h/o prior CVA, dementia, seizure, chronic indwelling martinez, recurrent UTIs, paroxysmal atrial tachycardia, bicuspid valve s/p aortic valve replacement/proximal aortic aneurysm repair 2013, left hip replacement in 2022, HTN, prior C. diff infection 07/2023 with recurrence 08/2023, admission 09/12-09/23/24 with back pain with progressive bl LE weakness x few weeks f/w VRE faecium bacteremia (T12-L1 discitis/OM, suspected PVE since MOIZ deferred, TTE neg) on dapto/ampicillin x 6wks (anticipated end 10/27). He was readmitted 10/26-11/09/24 with recurrent E faecium bacteremia while on dapto/ampicillin (10/26, 10/28), acute hypoxic respiratory failure, parainfluenza. During that admission, PICC was removed and catheter tip cx negative. MRI C/T/L spine without new areas of infection. TTE without obvious endocarditis, but severity of mitral regurg appeard to be increased compared to prior. MOIZ deferred given GOC and ineligibility for surgery. CTA chest was performed 11/02 to assess aortic graft material for infection--per radiologist, for ideal assessment, would need to time the contrast differently, but no signs of graft infection on that CT. PICC line was replaced and he was discharged on another 6 week course of daptomycin and ampicillin through 12/13/24, with plan to switch to lifelong supppressive PO antibiotic subsequently. He was subsequently seen at [facility] for ID follow-up with plan to switch to omadacycline for PO suppression after completing IV antibiotic course. Per pt's daughter, pt was looking the best she has seen him on 12/14--sitting up straight in his wheelchair, eating on his own, without back pain. Unfortunately, there were delays with insurance approval, and he was not started on omadacycline until 12/26. He was off antibiotics from 12/14-12/25. During this time, he started getting worse, and by 12/25, he was slumped over, not as engaged, with severe back pain again. He began to have fevers along with AMS, rigors on 12/30 AM, so he presented to the ED. On presentation, pt was afebrile, hemodynamically stable, RR 10. Labs showed WBC 9.51, normal lactate, AST 70, AST 35, alk phos 109. UA with >50 WBCs. CTAP with contrast showed a mild constipation. CTA chest with no PE, prosthetic aortic valve, previous surgical repair of ascending aorta without residual aneurysm or dissection. MRI brain with few small acute infarcts in L cerebellum. MRI L spine without contrast showed significant interval decrease in signal abnormality at T12-L1 level from prior, which may represent resolved or resolving osteomyelitis/discitis, some residual high STIR signal change at this level suggests some mild ongoing inflammation. Pt was started on daptomycin and pip- tazo. BCx grew E faecium. UCx grew Pseudomonas and ESBL E coli. TTE unable to exclude vegetation involving atrial side of anterior leaflet of mitral valve or aortomitral curtain. Pt's family did not want to pursue MOIZ or surgical intervention if endocarditis was noted. Cardiology also feels pt would not be a good surgical candidate, so there was no clear benefit for MOIZ. Allergies Allergy/AdvReac Type Severity Reaction Status Date / Time codeine AdvReac Intermediate GI SYMPTOMS Verified 10/26/24 15:47 Opioids - Morphine Analogues AdvReac Intermediate Vomiting Verified 10/26/24 15:47 Opioids-Meperidine and AdvReac Intermediate Vomiting Verified 10/26/24 15:47 Related Opioids-Methadone and Related AdvReac Intermediate Vomiting Verified 10/26/24 15:47 oxycodone [From Percocet] AdvReac Intermediate n/v Verified 10/26/24 15:47 Anesthesia AdvReac Severe Vomiting Uncoded 10/26/24 15:47 Home Medications Medication Instructions Recorded Confirmed Type cranberry 500 mg capsule 500 mg PO QDD 12/05/23 12/30/24 History mirabegron 25 mg tablet,extended 25 mg PO QAM 09/12/24 12/30/24 History release 24 hr (Myrbetriq) Lactobacillus rhamnosus GG 10 1 cap PO QAM 10/26/24 12/30/24 History billion cell capsule acetaminophen 325 mg tablet 650 mg PO Q4H PRN PAIN/FEVER >100F 10/26/24 12/30/24 History (Tylenol) acetaminophen 325 mg tablet 650 mg PO TID 10/26/24 12/30/24 History (Tylenol) lidocaine 4 % topical patch 1 patch topical DAILY 10/26/24 12/30/24 History folic acid 1 mg tablet 1 mg PO QAM 30 days #30 tabs 11/09/24 12/30/24 Rx multivitamin with minerals 1 tab PO DAILY #30 tabs 11/09/24 12/30/24 Rx (Multiple Vitamin-Minerals tablet) aspirin 81 mg chewable tablet 81 mg PO QAM 12/30/24 12/30/24 History cholecalciferol (vitamin D3) 25 25 mcg PO QAM 12/30/24 12/30/24 History mcg (1,000 unit) tablet (Vitamin D3) ferrous sulfate 325 mg (65 mg 325 mg PO BID 12/30/24 12/30/24 History iron) tablet menthol 0.44 %-zinc oxide 20.6 % 1 applic topical . NEEDED PRN 12/30/24 12/30/24 History topical ointment (Calmoseptine) incontinent episodes menthol 0.44 %-zinc oxide 20.6 % 1 applic topical QS 12/30/24 12/30/24 History topical ointment (Calmoseptine) omadacycline 150 mg tablet (Nuzyra) 300 mg PO QAM 12/30/24 12/30/24 History pantoprazole 40 mg tablet,delayed 40 mg PO QAM 12/30/24 12/30/24 History release (Protonix) simethicone 80 mg chewable tablet 80 mg PO Q6 PRN Abdominal 12/30/24 12/30/24 History Distention vancomycin 50 mg/mL oral solution 125 mg PO DAILY 12/30/24 12/30/24 History Patient History Medical History Esophageal candidiasis Fracture of femoral neck, left, closed Bladder stones Low back pain BPPV (benign paroxysmal positional vertigo) Family history of prostate cancer Squamous cell carcinoma of right lower leg Dementia with agitation Chronic indwelling Martinez catheter C. difficile colitis Coronary artery disease involving autologous artery coronary bypass graft Gross hematuria History of bicuspid aortic valve History of TIA (transient ischemic attack) SEPTEMBER 14, 2018 - (USUALLY TIA OCCURS 1X PER YR/STARTED 5 YR AGO)/DR FARRELL History of stroke 2012 - RESIDUAL: STABILITY ISSUE History of anesthesia reaction WITH HERNIA SURGERY ([facility]) HAD TROUBLE WAKING UP Lyme disease Seizure X1 OR 2 - WHEN TX FOR STROKE IN 2012/ DR FARRELL Surgical History S/P hip hemiarthroplasty History of aortic valve replacement History of appendectomy (03/16/13) History of colonoscopy History of hernia surgery X2 History of repair of right rotator cuff H/O aortic valve replacement 2013 - AND BICUSPID VALVE REPLACED AT SAME TIME PER PT REPORT /"OPEN HEART" 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 H/O aortic aneurysm repair Family History Mother , age 70 of lung cancer Lung cancer COPD (chronic obstructive pulmonary disease) Father , age 91 of prostate cancer Prostate cancer Coronary heart disease Myocardial infarction Family/Other Breast cancer Cancer Other Heart disease No family history of adverse response to anesthesia No family history of bleeding disorder Social History Smoking Status: Never smoker Second Hand Exposure: No; Do You Dip or Chew Tobacco: No; Hx Alcohol Use: No Hx Substance Use: No Preferred Language: Palauan Communication Ability: Impaired Communication Ability Comment: , Roxana Lopez, is POA. Visual Impairment: No Limitations Hearing Ability: Normal Clock Repairer Required: No Beliefs That Will Affect Care: None marital status: Current Living Situation: Halfway Current Living Situation Comment: [employer] [facility] nursing current occupational status: retired Feels Safe at Home: Yes Assistive Devices: Mechanical Lift Review of System Unable to obtain given patient condition. Physical Exam Physical Exam: GEN: elderly man laying in bed in NAD. RESP: No increased work of breathing ABD: Soft, non-distended. Non-tender to palpation. EXT: No LE edema. Warm, well-perfused. SKIN: No lesions or rashes on exposed skin. NEURO: unresponsive Results & Data Vital Signs (Past 12 Hours) Vital Signs Temp Pulse Resp BP Pulse Ox O2 Del Method 01/03/25 07:54 36.7 C 85 34 H 110/75 95 Room Air 01/03/25 03:05 36.7 C 90 21 116/78 95 Room Air 01/02/25 23:32 37.5 C 97 H 23 109/76 94 Room Air Laboratory Results Short CBC 01/03/25 Range/Units 05:57 WBC 7.17 (4.8-10.8) K/ul Hgb 10.5 L (14.0-18.0) g/dl Hct 31.7 L (42.0-52.0) % Plt Count 144 (130-400) K/uL BMP 01/03/25 05:57 Sodium 135 L Potassium 3.4 L Chloride 105 Carbon Dioxide 24 BUN 23 Creatinine 0.58 L Glucose 99 Calcium 8.2 L Diagnostic Findings Lumbar Spine MRI 01/01/25 12:10 Lumbar spine MRI without IV contrast History: History of lumbar infection Comparison: MRI from September 17, 2024 Technique: Sagittal T1-weighted, sagittal STIR, 3D volumetric axial and sagittal reconstructed T2-weighted images of the lumbar spine were obtained without intravenous contrast. Findings: There are 5 lumbar-type vertebrae assumed for the purposes of this dictation. The tip of the conus medullaris is at L1. Normal lumbar vertebral alignment. There is multilevel degenerative disc height loss, which is similar to prior, and overall moderate at the T12-L1, L1-L2, L4-L5, and L5-S1 levels. There may be mild disc height loss at L2-L3 and L3-L4. Significant interval decrease in the signal abnormality at the T12-L1 endplates, with both decreased size as well as signal intensity from prior. There continues to be subtle low T1 signal abnormality, especially the inferior T12 endplate. There are a few tiny foci of high signal intensity within the disc space, otherwise the diffuse high signal abnormality on prior is resolved. There is no abnormality in the spinal canal at this level. Similar-appearing multilevel degenerative changes, including small disc bulges, facet arthropathy and ligamentum flavum thickening. There is again moderate right and severe left neuroforaminal narrowing at L3-4, severe right and moderate to severe left neuroforaminal narrowing at L4-5, and moderate to severe bilateral neuroforaminal narrowing at L5-S1. Paraspinous tissues are within normal limits. Note: The following findings are common in the absence of low back pain and while we report their presence, they must be interpreted with caution and in the context of the clinical situation. (Reference -Theo et al, Spine 2001) Findings (prevalence in patients without low back pain) Disc degeneration (decreased T2 signal, height loss, bulge) (91%) Disc T2 - signal loss (83%) Disc height loss (56%) Disc bulge (64%) Disc protrusion (32%) Annular tear (38%). Impression: Significant interval decrease in signal abnormality at the T12-L1 level from prior, which may represent resolved or resolving osteomyelitis/discitis. Some residual high STIR signal change at this level suggest some mild ongoing inflammation. Electronically signed by Felix Pal 01-01-2025 2:25 PM Medications Administered Current Inpatient Medications Aspirin (Aspirin 81 Mg Ectab) 81 mg PO QAM BRENDA Stop: 01/30/25 08:59 Last Admin: 01/03/25 10:32 Dose: 81 mg Daptomycin 600 mg/ Syringe 12 mls @ 6 mls/min IV Q24H BRENDA; Protocol Stop: 01/16/25 21:59 Last Admin: 01/02/25 21:43 Dose: 6 mls/min Meropenem 500 mg/ Syringe 10 mls @ 2 mls/min IV Q8H BRENDA; Protocol Stop: 01/13/25 14:59 Lorazepam (Lorazepam 2 Mg/1 Ml Vial) 0.5 mg IV Q6H PRN PRN Reason: Anxiety/Agitation Stop: 02/01/25 14:43 Last Admin: 01/02/25 14:56 Dose: 0.5 mg Miscellaneous Information (Pharmacist Discharge Med Rec Consult) 1 each N/A UD PRN PRN Reason: Consult Stop: 01/30/25 03:07 Ondansetron HCl (Ondansetron Inj 2 Mg/Ml 2 Ml Vial) 4 mg IV Q6H PRN PRN Reason: Nausea Stop: 01/30/25 00:21 Pantoprazole Sodium (Pantoprazole 40 Mg Tab) 40 mg PO QAM BRENDA Stop: 02/01/25 08:59 Last Admin: 01/03/25 10:32 Dose: 40 mg
[2025-01-03] MEDS: MAGNESIUM SULFATE / D5W 1 GM/100 ML BAG IV ONE (11:44)
[2025-01-03] MEDS: MEROPENEM 500 MG in SYRINGE 0 ML IV SCH (15:17)
[2025-01-03] MEDS: VANCOMYCIN HCL 125 MG/2.5ML SOLN PO SCH (17:03)
[2025-01-03] MEDS: CHERRY SYRUP 5 ML UDP PO SCH (17:03)
[2025-01-03] MEDS: DAPTOmycin 700 MG in SYRINGE 0 ML IV SCH (20:54)
--- NOTE | 2025-01-03 21:36 | Hospitalist Progress Note ---
Date of Service January 03, 2025 Assessment & Plan (1) Acute bacterial endocarditis: Plan: Suspected. 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 MOIZ has been ordered. Infectious disease consultation requested and pending. Blood cultures positive for Enterococcus faecium. Urine is growing Pseudomonas. Both are sensitive to Zosyn which we will continue. Daptomycin has been discontinued. Overall poor prgnosis given recurrent bacteremia. Patient has been admitted multiple times in the past year. Appreciate palliative care input (2) Bacteremia: Plan: Enterococcus faecium isolated. Sensitive to Zosyn. Daptomycin has been discontinued. 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 Lumbar MRI scan does not reveal any drainable abscess collection. 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 More than likely this is from suspected BRYAN. Supportive care. (4) Metabolic encephalopathy: Plan: Present on admission. Due to CAUTI, bacteremia and acute CVA. Supportive care (5) Urinary tract infection: Plan: Catheter associated. Pseudomonas isolated in the urine. Sensitive to Zosyn. (6) Back pain: Plan: Chronic. History of lumbar discitis in October of this year treated with a prolonged course of intravenous antibiotics. Repeat lumbar MRI negative for abscess formation. Pain control measures (7) Dementia: Plan: Severe. Supportive measures Plan To be determined. Hopeful eventual return to [facility] sometime this week Admission and Anticipated Discharge Date Admission Date: December 30, 2024 Subjective 84 yo male is a poor historian. Family is not at bedside. Physical Exam Physical Exam: General-alert. Nonverbal. No fever HEENT-head atraumatic and normocephalic, pupils equal and reactive to light, extraocular muscles intact Neck-no lymphadenopathy or thyromegaly, trachea midline Chest-scattered rhonchi. No respiratory rales. No wheezing Cardiac-regular rate and rhythm, normal S1 and S2 Abdomen-normal bowel sounds, no hepatosplenomegaly Psych-flat. Baseline disorientation due to dementia Results & Data Results & Data Vital Signs (Past 12 Hours) Vital Signs Temp Pulse Pulse Resp BP Pulse Ox O2 Del Method 01/03/25 19:57 36.8 C 96 H 20 109/87 95 Room Air 01/03/25 18:40 90 07/28/25 15:52 36.9 C 99 H 37 H 114/63 98 Room Air 01/03/25 11:03 36.7 C 94 H 22 116/91 96 Room Air PG Care Time/CCT Total # of Minutes Spent Total Time Spent with Patient: Total time spent is greater than 50% in coordination of care (as documented) at patient's floor/unit and/or counseling patient: Coding Level of Care Code 94257 SUB INP/OBS CARE 3/50MIN Diagnoses Acute bacterial endocarditis I33.0 Bacteremia R78.81 Embolic stroke I63.9 Metabolic encephalopathy G93.41 Urinary tract infection N39.0 Back pain M54.9 Dementia F03.90 Dementia behavioral or psychological symptom: unspecified whether behavioral, psychotic, or mood disturbance or anxiety Dementia severity: unspecified severity Dementia type: unspecified type (7) Dementia Dementia behavioral or psychological symptom: unspecified whether behavioral, psychotic, or mood disturbance or anxiety Dementia severity: unspecified severity Dementia type: unspecified type Qualified Code(s): F03.90 - Unspecified dementia, unspecified severity, without behavioral disturbance, psychotic disturbance, mood disturbance, and anxiety
[2025-01-04 06:33] LABS: Hematocrit (blood only) 31.5 % (42.0-52.0); Hemoglobin 10.1 g/dl (14.0-18.0); Immature Granulocytes # (auto) 0.05 K/uL (0.01-0.20); Immature Granulocytes % (auto) 0.6 %; Mean Corpuscular Hemoglobin 28.7 pg (25.0-34.0); Mean Corpuscular Volume 89.5 fL (80.0-100.0); Platelet Count 166 K/uL (130-400); RDW Standard Deviation 53.7 fL (36.4-46.3); Red Blood Count 3.52 M/uL (4.70-6.10); White Blood Count 8.15 K/ul (4.8-10.8)
[2025-01-04 06:44] LABS: Anion Gap 4.0 (3-11); Blood Urea Nitrogen 20.0 mg/dl (6-23); Calcium 8.1 mg/dl (8.6-10.3); Carbon Dioxide 27.0 mmol/L (21-32); Chloride 103.0 mmol/L (98-107); Creatinine Clr Calc Pharmacy 94.4 ml/min; Glucose 100.0 mg/dl (70-99(Fasting)); Potassium 3.4 mmol/L (3.5-5.1); Sodium 134.0 mmol/L (136-145)
--- NOTE | 2025-01-04 10:30 | Infectious Disease Progress Nt ---
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 diff Micro: 12/30 UCx: Pseudomonas (mares-S), ESBL E coli (R cipro, levo. S erta, vicky, TMP/SMX) 12/30 BCx x2: E faecium in 4/ bottles (S dapto, linezolid, vanc MARTA 0.25) 11/02 BCx x2: NG 10/28 BCx x2: E faecium in 1/4 bottles 10/27 Catheter tip cx: NG 10/26 UCx: Pseudomonas, Natacha 10/26 BCx x2: E faecium in 4/4 bottles (S dapto MARTA 4, vanc MARTA 0.25, linezolid MARTA 1. R ampicillin. Also R to doxy, levo per conversation with micro lab) 09/15 BCx x2: E faecium in 3/4 bottles (S dapto MARTA 2, vanc MARTA 0.5. R ampicillin) 09/14 BCx x1: VRE in 2/2 bottles 09/13 BCx x2: VRE in 4/4 bottles 09/12 BCx x2: VRE in 4/4 bottles (S dapto MARTA 4. R vanc MARTA >16, ampicillin) Abx: Dapto 12/30 - present Pip-tazo 12/30 - present 84 yo M resident of [facility], nonverbal, with h/o prior CVA, dementia, seizure, chronic indwelling martinez, recurrent UTIs, paroxysmal atrial tachycardia, bicuspid valve s/p aortic valve replacement/proximal aortic aneurysm repair 2013, left hip replacement in 2022, HTN, prior C. diff infection 07/2023 with recurrence 08/2023, admission 09/12-09/23/24 with back pain with progressive bl LE weakness x few weeks f/w VRE faecium bacteremia (T12-L1 discitis/OM, suspected PVE since MOIZ deferred, TTE neg) on dapto/ampicillin x 6wks (anticipated end 10/27). He was readmitted 10/26-11/09/24 with recurrent E faecium bacteremia while on dapto/ampicillin (10/26, 10/28), acute hypoxic respiratory failure, parainfluenza. During that admission, PICC was removed and catheter tip cx negative. MRI C/T/L spine without new areas of infection. TTE without obvious endocarditis, but severity of mitral regurg appeard to be increased compared to prior. MOIZ deferred given GOC and ineligibility for surgery. CTA chest was performed 11/02 to assess aortic graft material for infection--per radiologist, for ideal assessment, would need to time the contrast differently, but no signs of graft infection on that CT. PICC line was replaced and he was discharged on another 6 week course of daptomycin and ampicillin through 12/13/24, with plan to switch to lifelong supppressive PO antibiotic subsequently. He was subsequently seen at [facility] for ID follow-up with plan to switch to omadacycline for PO suppression after completing IV antibiotic course. Per pt's daughter, pt was looking the best she has seen him on 12/14--sitting up straight in his wheelchair, eating on his own, without back pain. Unfortunately, there were delays with insurance approval, and he was not started on omadacycline until 12/26. He was therefore off antibiotics from 12/14-12/25. During this time, he started getting worse, and by 12/25, he was slumped over, not as engaged, with severe back pain again. He began to have fevers along with AMS, rigors on 12/30 AM, so he presented to the ED, and was found to have recurrent E faecium bacteremia. On presentation, pt was afebrile, hemodynamically stable, RR 10. Labs showed WBC 9.51, normal lactate, AST 70, AST 35, alk phos 109. UA with >50 WBCs. CTAP with contrast showed a mild constipation. CTA chest with no PE, prosthetic aortic va lve, previous surgical repair of ascending aorta without residual aneurysm or dissection. MRI brain with few small acute infarcts in L cerebellum. MRI L spine without contrast showed significant interval decrease in signal abnormality at T12-L1 level from prior, which may represent resolved or resolving osteomyelitis/discitis, some residual high STIR signal change at this level suggests some mild ongoing inflammation. Pt was started on daptomycin and pip- tazo. BCx grew E faecium. UCx grew Pseudomonas and ESBL E coli. TTE unable to exclude vegetation involving atrial side of anterior leaflet of mitral valve or aortomitral curtain. Pt's family did not want to pursue MOIZ or surgical intervention if endocarditis was noted. Cardiology also feels pt would not be a good surgical candidate, so there was no clear benefit for MOIZ. Discussion: Pt with recurrent E faecium bacteremia after being on dapto and ampicillin from 09/16-12/13 (>12 weeks). Plan had been to transition to a suppressive PO antibiotic, but unfortunately due to delays in insurance approval, pt was not started on omadacycline until 12/26. Pt with AVR and proximal aortic aneurysm repair, which may be sites of persistent infection. TTE raises continued concern for mitral valve endocarditis. Pt also with new small infarcts in cerebellum, could be embolic. Note that pt initially had VRE bacteremia 09/12-09/14, then vanc-sensitive E faecium bacteremia 09/15, 10/26, 10/28, 12/30. There may be different E faecium subpopulations? Also uncertain whether we can trust the vanc susceptibility. Will treat with daptomycin. Also currently on meropenem to cover Pseudomonas and ESBL E coli in the urine, but will plan to transition this to ampicillin soon for synergy. Recommendations: - Continue meropenem for Pseudomonas and ESBL E coli in the urine culture, although uncertain significance and may represent colonizers - Recommend martinez exchange if it has not already been done this admission - Continue daptomycin 700 mg IV q24h given persistent complicated infection. Confirmed dosage with ID pharmacist. Baseline CK 50 on 01/03. - Follow-up repeat blood cultures - Continue C diff prophylaxis while on systemic antibiotics Will continue to follow Admission and Anticipated Discharge Date Admission Date: December 30, 2024 Subjective This patient recommendation is based on a telemedicine consult request which was completed asynchronously through chart review and information provided by the primary physician. The patient was not seen or examined today. The evaluation is consultative in nature and all patient care and treatment decisions can either be accepted or rejected by the patient's primary hospital-based treating physician using their own independent medical judgment for their patient. Time Spent Reviewing Chart: 11 - 20 minutes No acute events Results & Data Vital Signs (Past 12 Hours) Vital Signs Temp Pulse Pulse Resp BP BP Pulse Ox 01/04/25 09:44 95 H 01/04/25 08:13 36.5 C 86 20 133/85 97 01/04/25 07:35 01/04/25 03:06 36.5 C 90 24 124/83 94 01/04/25 00:13 93 H 01/04/25 00:00 01/03/25 23:48 01/03/25 23:22 36.5 C 94 H 22 123/87 92 Pulse Ox O2 Del Method O2 Del Method 01/04/25 09:44 01/04/25 08:13 Room Air 01/04/25 07:35 Room Air 01/04/25 03:06 Room Air 01/04/25 00:13 01/04/25 00:00 92 Room Air 01/03/25 23:48 Room Air 01/03/25 23:22 Room Air Laboratory Results Short CBC 01/04/25 Range/Units 05:30 WBC 8.15 (4.8-10.8) K/ul Hgb 10.1 L (14.0-18.0) g/dl Hct 31.5 L (42.0-52.0) % Plt Count 166 (130-400) K/uL BMP 01/04/25 05:30 Sodium 134 L Potassium 3.4 L Chloride 103 Carbon Dioxide 27 BUN 20 Creatinine 0.56 L Glucose 100 H Calcium 8.1 L Cardiac Enzymes 01/03/25 Range/Units 14:58 Total Creatine Kinase 50 (30-223) U/L Medications Administered Current Inpatient Medications Aspirin (Aspirin 81 Mg Ectab) 81 mg PO QAM BRENDA Stop: 01/30/25 08:59 Last Admin: 01/04/25 09:16 Dose: 81 mg Miguel Syrup (Miguel Syrup 5 Ml Udp) 5 ml PO DAILY BRENDA Stop: 01/13/25 15:59 Last Admin: 01/04/25 09:15 Dose: 5 ml Meropenem 500 mg/ Syringe 10 mls @ 2 mls/min IV Q8H BRENDA; Protocol Stop: 01/13/25 14:59 Last Admin: 01/04/25 07:23 Dose: 2 mls/min Daptomycin 700 mg/ Syringe 14 mls @ 7 mls/min IV Q24H BRENDA; Protocol Stop: 01/17/25 20:59 Last Admin: 01/03/25 20:54 Dose: 7 mls/min Acetaminophen (Ofirmev) 1,000 mg in 100 mls @ 400 mls/hr IV Q8H PRN PRN Reason: Pain or Fever Stop: 01/06/25 17:51 Lorazepam (Lorazepam 2 Mg/1 Ml Vial) 0.5 mg IV Q6H PRN PRN Reason: Anxiety/Agitation Stop: 02/01/25 14:43 Last Admin: 01/02/25 14:56 Dose: 0.5 mg Miscellaneous Information (Pharmacist Discharge Med Rec Consult) 1 each N/A UD PRN PRN Reason: Consult Stop: 01/30/25 03:07 Ondansetron HCl (Ondansetron Inj 2 Mg/Ml 2 Ml Vial) 4 mg IV Q6H PRN PRN Reason: Nausea Stop: 01/30/25 00:21 Pantoprazole Sodium (Pantoprazole 40 Mg Tab) 40 mg PO QAM PENDING SALE TO [facility] Stop: 02/01/25 08:59 Last Admin: 01/04/25 09:16 Dose: 40 mg Vancomycin HCl (Vancomycin Hcl 125 Mg/2.5ml Soln) 125 mg PO DAILY [facility]ENDING S[facility] TO [facility] Stop: 01/13/25 15:59 Last Admin: 01/04/25 09:17 Dose: 125 mg
[2025-01-04] MEDS ORDERED: GLYCOPYRROLATE 0.2 MG/ML VIAL IV PRN (10:57)
[2025-01-04] MEDS ORDERED: ONDANSETRON INJ 2 MG/ML 2 ML VIAL IV PRN (10:57)
[2025-01-04] MEDS ORDERED: ATROPINE SULFATE 1% OP SOLN 5 ML BTL SL PRN (10:57)
[2025-01-04] MEDS ORDERED: HYOSCYAMINE SULFATE 0.125 MG TAB SL PRN (10:57)
[2025-01-04] MEDS ORDERED: MoRPHine SULFATE 2 MG/ML CARP IV PRN (10:57)
--- NOTE | 2025-01-04 11:02 | Palliative Care Progress Note ---
Date of Service January 04, 2025 Assessment & Plan (1) Palliative care by specialist: Plan: Palliative care will continue to follow for ongoing ACP discussions and pt/family support. (2) Advance directive in chart: Plan: Patient currently lacks decisional capacity based on the inability to convey understanding of personal PMHx, current medical condition, treatment options nor the risks / benefits/ potential outcomes of accepting/declining those options, and inability to make decisions based on such knowledge. Hospital does have written documentation of patient wishes concerning his chosen proxy for medical decisions. AD paperwork on file which was properly executed by patient on 04/30/23 designates patient's Spouse Roxana Lopez ([phone]) as primary HCP OA and his daughter Radha Higginbotham ([phone]) as secondary HCPOA for all medical decisions in the event he lacks decisional capacity. Pt does require a proxy for medical decisions and given the progressively debilitating nature of dementia, I suspect this will continue through his life span. Pt's Roxana and daughter Renita are both present and agreeable to serving as proxy for medical decisions. (3) POLST (Physician Orders for Life-Sustaining Treatment): Plan: POLST form on file that indicates DNR/DNI, limited additional interventions, no artificial nutrition or hydration, and ABx as needed. (4) Counseling regarding goals of care: Plan: TODAY:Reniat at bedside this morning. Discussed GOC and reviewed previous discussions with her. questions encouraged and answered. Renita confirmed sneha n for completion of current course of IV Abx per ID recs and then transition to oral ABx prophylaxis and discharge to LTC. She reinforced that for now the pt will remain DNR/DNI, but continue all other life prolonging treatments. 01/03/25: GOC discussion held with Roxana and Renita, topics discussed in layman's terms included (not limited to) pt's current hospital course, comorbidities, baseline dementia, frequent admissions for bacteremia without possibility of source control and deconditioning of chronic illness and immobility. We discussed how all these factors may work against pt in his recovery from current and future infections/sepsis. Spent a substantial amount of time discussing the progressively debilitating nature of dementia. Explained that dementia is incurable and irreversible, and can include progressive/worsening memory loss, confusion, language difficulties/lack of comprehension skills/loss of verbal skills eventually, mood changes, impaired judgment, trouble with motor skills/coordination/balance issues, visual and spatial problems, hallucinations, and personality changes. The rate of progression in mixed dementia can vary widely from person to person. Factors such as the types of dementia involved, overall health, and genetics can influence the speed of progression. Some individuals experience a more gradual decline, while others may progress more rapidly through the stages. We discussed and differentiated dementia from delirium and helped family understand that they can co-exist. I reviewed Dementia is a terminal illness. Aggressive medical treatment for patients with advanced dementia is often inappropriate for medical reasons, has a low rate of success, and can have negative outcomes that hasten functional decline and . ([place] [employer] Ethics Committee and Clinical Practice and Models of Care Committee. J Am Geriatr Soc. 2014 Jan;62(8):1590-3 and Terrence SL, Zohaib JM, Kim SC, Rakan V. A national study of the location of for older persons with dementia. J Am Geriatr Soc 2005; 53(2):299-305.). Renita identified the patient as in stage 5 bordering on 6 in his dementia, although she did admit that here in the hospital he appear to be Stage 6. We discussed that in late stages of dementia, poor PO intake and decreased mobility puts patient's at higher risk of injury and infection but also makes recovery of these insults more difficult resulting in frequent ED visits and admissions. We discussed the utilization of hospice services in stages 6 and 7 to optimize patient comfort and focus on quality of life vs quantity of days. Both Renita and Roxana shared that they are thankful for the information and they realize that they need to start focus on where the patient would draw the line on continuing to prolong life. Both adamantly stated that they would not pursue a PEG tube or any "forced feedings" because these are not c/w pt wishes. They shared that they have been in touch with hospice team at [facility] and at this time they would like to start making plans toward transition to hospice care for the future. They shared that they would like to allow the pt to transition to oral ABx and see if he can have some quality of life before he again develops septicemia. Plan as above Admission and Anticipated Discharge Date Admission Date: December 30, 2024 Subjective Assessed pt at bedside today, daughter Renita at bedside. NAONE. Pt awake and alert, pleasantly confused per baseline. He denied any discomfort. Review of Systems Review of Systems: All systems reviewed & are unremarkable except as noted in Subjective Physical Exam Physical Exam: sleeping, snoring but in NAD on nasal canula. Constitutional: + ill appearing, + thin and + frail appe aring; no acute distress Eyes: PERRL, conjunctivae normal, anicteric sclerae Neck: trachea midline, no thyromegaly Respiratory: normal respiratory effort, lungs clear to auscultation Cardiovascular: RRR, no murmur, no edema Gastrointestinal (Abdomen): normal bowel sounds, soft, nontender, no hepatosplenomegaly Psychiatric: Orientation: alert and oriented to person Results & Data Vital Signs (Past 12 Hours) Vital Signs Temp Pulse Pulse Resp BP BP Pulse Ox 01/04/25 09:44 95 H 01/04/25 08:13 36.5 C 86 20 133/85 97 01/04/25 07:35 01/04/25 03:06 36.5 C 90 24 124/83 94 01/04/25 00:13 93 H 01/04/25 00:00 01/03/25 23:48 01/03/25 23:22 36.5 C 94 H 22 123/87 92 Pulse Ox O2 Del Method O2 Del Method 01/04/25 09:44 01/04/25 08:13 Room Air 01/04/25 07:35 Room Air 01/04/25 03:06 Room Air 01/04/25 00:13 01/04/25 00:00 92 Room Air 01/03/25 23:48 Room Air 01/03/25 23:22 Room Air Laboratory Results Abnormal lab results 01/04/25 Range/Units 05:30 RBC 3.52 L (4.70-6.10) M/uL Hgb 10.1 L (14.0-18.0) g/dl Hct 31.5 L (42.0-52.0) % RDW Std Deviation 53.7 H (36.4-46.3) fL RDW Coeff of Stormy 16.4 H (11.5-14.5) % MPV 9.3 L (9.4-12.4) fL [place] # (Auto) 0.68 H (0.11-0.59) K/uL Sodium 134 L (136-145) mmol/L Potassium 3.4 L (3.5-5.1) mmol/L Creatinine 0.56 L (0.6-1.4) mg/dl BUN/Creatinine Ratio 35.7 H (10-20) Glucose 100 H (70-99(Fasting)) mg/dl Calcium 8.1 L (8.6-10.3) mg/dl Diagnostic Findings Chest X-Ray 12/30/24 19:55 Exam(s): XR CXR 1 VIEW EXAM: XR Chest, 1 View CLINICAL HISTORY: Reason for exam: Sepsis. TECHNIQUE: Frontal view of the chest. COMPARISON: 11/01/2024 FINDINGS: Lungs: Lungs are well inflated with slightly prominent interstitial markings. The previously seen edema has resolved. No acute infiltrate or effusion identified. Pleural space: Unremarkable. No pneumothorax. Heart: See below. Mediastinum: Unremarkable. Normal mediastinal contour. 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 The cardiac silhouette is mildly enlarged, unchanged. No acute fracture. Upper abdomen: Unremarkable as visualized. No pneumoperitoneum under the diaphragm. IMPRESSION: 1. Lungs are well inflated with slightly prominent interstitial markings. The previously seen edema has resolved. No acute infiltrate or effusion identified. 2. 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 The cardiac silhouette is mildly enlarged, unchanged. Electronically signed by: Slick Cain MD 12/30/24 20:[address] 12/30/24 19:55 Exam(s): CT HEAD Without Contrast EXAM: CT Head Without Intravenous Contrast CLINICAL HISTORY: Reason for exam: stroke. TECHNIQUE: Axial computed tomography images of the head/brain without intravenous contrast. CTDI is 36 mGy and DLP is 1165 mGy-cm. Automated exposure control was utilized for the study. A dose lowering technique was utilized adhering to the principles of ALARA. COMPARISON: No relevant prior studies available. FINDINGS: Brain: Mild cerebral atrophy and periventricular white matter low density consistent with chronic small vessel disease and/or senescent changes. No acute large vessel infarct or intracranial hemorrhage is seen. Ventricles: Mildly dilated. No mass or hemorrhage. Bones/joints: Unremarkable. No acute fracture. Soft tissues: Unremarkable. Sinuses: Unremarkable as visualized. No acute sinusitis. Mastoid air cells: Unremarkable as visualized. No mastoid effusion. IMPRESSION: Mild cerebral atrophy and periventricular white matter low density consistent with chronic small vessel disease and/or senescent changes. No acute large vessel infarct or intracranial hemorrhage is seen. Electronically signed by: Slick Cain MD 12/30/24 21:00 PM Head CTA 12/30/24 19:55 Exam(s): CTA HEAD With Contrast EXAM: CT Head With Intravenous Contrast CLINICAL HISTORY: Reason for exam: stroke. TECHNIQUE: Axial computed tomographic images of the head with intravenous contrast. CTDI is the 36 mGy and DLP is 1165 mGy-cm. Automated exposure control was utilized for the study. A dose lowering technique was utilized adhering to the principles of ALARA. CONTRAST: Information not available. Critical stroke study. COMPARISON: Precontrast study from today. FINDINGS: Right internal carotid artery: Calcified plaque causing 20% stenosis of the distal right internal carotid artery. No aneurysm. Right anterior cerebral artery: Unremarkable. No occlusion or significant stenosis. No aneurysm. Right middle cerebral artery: Unremarkable. No occlusion or significant stenosis. No aneurysm. Right posterior cerebral artery: Unremarkable. No occlusion or significant stenosis. No aneurysm. Right vertebral artery: The distal vertebral arteries are tortuous but widely patent. Left internal carotid artery: Calcified plaque causing 25% stenosis of the distal left internal carotid artery. No aneurysm. Left anterior cerebral artery: Unremarkable. No occlusion or significant stenosis. No aneurysm. Left middle cerebral artery: Unremarkable. No occlusion or significant stenosis. No aneurysm. Left posterior cerebral artery: Unremarkable. No occlusion or significant stenosis. No aneurysm. Left vertebral artery: See above. Basilar artery: The basilar artery is mildly tortuous but widely patent. No occlusion or significant stenosis. No aneurysm. IMPRESSION: 1. Up to 25% stenosis of the distal internal carotid arteries bilaterally. 2. The anterior, middle, and posterior cerebral arteries are within normal limits. No aneurysm, vascular malformation, or large vessel occlusion is identified. Electronically signed by: Slick Cain MD 12/30/24 21:09 PM Neck CTA 12/30/24 19:55 Exam(s): CTA NECK With Contrast EXAM: CT Neck With Intravenous Contrast CLINICAL HISTORY: Reason for exam: Stroke. TECHNIQUE: Routine carotid CT protocol was performed with intravenous contrast. NASCET criteria using the distal ICAs for comparison were used for evaluation of stenoses. CTDI is 36 mGy and DLP is 1165 mGy-cm. Automated exposure control was utilized for the study. A dose lowering technique was utilized adhering to the principles of ALARA. CONTRAST: Information not available. Critical stroke study. COMPARISON: None. FINDINGS: VASCULATURE: Right common carotid artery: Calcified plaque causing 30% stenosis of the distal right common carotid artery. No dissection. Right internal carotid artery: 30% stenosis of the proximal right internal carotid artery. The distal right internal carotid artery is tortuous but widely patent. No dissection. Right external carotid artery: Unremarkable. No occlusion. Right vertebral artery: Unremarkable. No occlusion or significant stenosis. No dissection. Left common carotid artery: 25% stenosis of the distal left common carotid artery. No dissection. Left internal carotid artery: 20% stenosis of the proximal left internal carotid artery. The distal left internal carotid artery is tortuous but widely patent. No dissection. Left external carotid artery: Unremarkable. No occlusion. Left vertebral artery: Unremarkable. No occlusion or significant stenosis. No dissection. Aorta: The aortic arch is mildly calcified but nondilated. There is no aneurysm or dissection. NECK: Bones/joints: Mild multilevel degenerative disc disease and facet arthrosis throughout the cervical spine. No acute fracture or subluxation is seen. Soft tissues: Unremarkable. Lung apices: Clear. CAROTID STENOSIS REFERENCE USING NASCET CRITERIA: % ICA stenosis = (1 - narrowest ICA diameter/diameter of distal cervical ICA) x 100. Mild - <50% stenosis. Moderate - 50-69% stenosis. Severe - 70-94% stenosis. Near occlusion - 95-99% stenosis. Occluded - 100% stenosis. IMPRESSION: 1. 30% stenosis of the proximal right internal carotid artery. 2. 20% stenosis of the proximal left internal carotid artery. Electronically signed by: Slick Cain MD 12/30/24 21:03 PM Abdomen/Pelvis CT 12/30/24 20:01 Exam(s): CT ABDOMEN + PELVIS With Contrast IV Amt: 119ml optiray 320 EXAM: CT Abdomen and Pelvis With Intravenous Contrast CLINICAL HISTORY: Reason for exam: ams. TECHNIQUE: Axial computed tomography images of the abdomen and pelvis with intravenous contrast. CTDI is 36 mGy and DLP is 1165 mGy-cm. Automated exposure control was utilized for the study. A dose lowering technique was utilized adhering to the principles of ALARA. CONTRAST: Patient received 119ml optiray 320 of IV contrast COMPARISON: No relevant prior studies available. FINDINGS: Lung bases: Unremarkable. No mass. No consolidation. ABDOMEN: Liver: Unremarkable. No mass. Gallbladder and bile ducts: Unremarkable. No calcified stones. No ductal dilation. Pancreas: Unremarkable. No mass. No ductal dilation. Spleen: Unremarkable. No splenomegaly. Adrenals: Unremarkable. No mass. Kidneys and ureters: 2.9 cm simple cysts in the right kidney. No follow-up is required. No hydronephrosis. Stomach and bowel: Bowel loops are nondilated. There is a relatively large amount of stool in the right colon measuring up to 7 cm suggesting possible mild constipation. No pneumoperitoneum, free fluid, or acute inflammatory changes are seen involving the bowel. No mucosal thickening. PELVIS: Appendix: No findings to suggest acute appendicitis. Bladder: The urinary bladder is decompressed by [place] catheter and otherwise unremarkable. Reproductive: Unremarkable as visualized. ABDOMEN and PELVIS: Intraperitoneal space: See above. Bones/joints: Metal artifact from left hip arthroplasty. There are [id number]-[id number] osteoarthritic changes of the right hip. No hip or pelvic fracture is seen. [id number] degenerative changes in the lumbar spine including spondylolysis at L5 without spondylolisthesis. No acute fracture is seen. No dislocation. Soft tissues: Unremarkable. Vasculature: The abdominal aorta is moderately calcified but nondilated. There is no aneurysm or dissection. Lymph nodes: Unremarkable. No enlarged lymph nodes. IMPRESSION: Bowel loops are nondilated. There is a relatively large amount of stool in the right colon measuring up to 7 cm suggesting possible mild constipation. No pneumoperitoneum, free fluid, or acute inflammatory changes are seen involving the bowel. Electronically signed by: Slick Cain MD 12/30/24 21:37 PM Chest CTA 12/30/24 20:01 Exam(s): CTA CHEST IV Amt: 119ml optiray 320 EXAM: CT Angiography Chest With Intravenous Contrast CLINICAL HISTORY: Reason for exam: PE. TECHNIQUE: Axial computed tomographic angiography images of the chest with intravenous contrast. CTDI is 36 mGy and DLP is 1165 mGy-cm. Automated exposure control was utilized for the study. A dose lowering technique was utilized adhering to the principles of ALARA. MIP reconstructed images were created and reviewed. COMPARISON: No relevant prior studies available. FINDINGS: Pulmonary arteries: The pulmonary arterial tree is well opacified with contrast. No pulmonary emboli are identified. Aorta: The thoracic aorta is mildly calcified. There is a prosthetic aortic valve with 4.5 cm ectasia of the aortic root. There are calcified suture lines indicating previous surgical repair of the ascending aorta without residual aneurysm or dissection. The descending thoracic aorta is nondilated. Lungs: Scattered linear densities in both lung bases consistent with subsegmental atelectasis. Some component of edema and fibrosis may also be present. No mass. Pleural space: Unremarkable. No significant effusion. No pneumothorax. Heart: The heart is mildly enlarged. No pericardial effusion is seen. No evidence of RV dysfunction. Bones/joints: Mild multilevel degenerative changes throughout the spine. No acute fracture or destructive bone lesion is seen. No dislocation. Soft tissues: Unremarkable. Lymph nodes: Unremarkable. No enlarged lymph nodes. IMPRESSION: 1. The thoracic aorta is mildly calcified. There is a prosthetic aortic valve with 4.5 cm ectasia of the aortic root. There are calcified suture lines indicating previous surgical repair of the ascending aorta without residual aneurysm or dissection. The descending thoracic aorta is nondilated. 2. Scattered linear densities in both lung bases consistent with subsegmental atelectasis. Some component of edema and fibrosis may also be present. 3. The pulmonary arterial tree is well opacified with contrast. No pulmonary emboli are identified. Electronically signed by: Slick Cain MD 12/30/24 21:44 PM Brain MRI 12/30/24 22:37 EXAM: MR brain seizure wo/w con CLINICAL HISTORY: unresponsive, rule out CVA TECHNIQUE: Multisequential and multiplanar images of the brain were submitted for review without and with contrast. COMPARISON: CT, 07/11/2024 16:12:00 [employer] FINDINGS: Few small T2/FLAIR hyperintensities with DWI restriction seen in left cerebellum. Generalized parenchymal atrophy is appreciated. Scattered foci of increased T2/FLAIR signal abnormality are identified within the bilateral periventricular and subcortical white matter, and are most commonly associated with chronic small vessel ischemic disease. No focal parenchymal lesions are seen. No intracranial hemorrhage, mass effect, midline shift, extra-axial collection, or hydrocephalus is identified. Ventricles, sulci, and basal cisterns are symmetric and normal in size and configuration. Midline structures including the pituitary gland, corpus callosum, pineal region, and brainstem are unremarkable. No evidence of any enhancing mass or abnormal enhancement seen. The craniovertebral junction is within normal limits. No calvarial abnormalities are identified. The paranasal sinuses and mastoid air cells are clear. Orbital structures are unremarkable. Appropriate flow voids are present in the visualized intracranial vessels. IMPRESSION: 1. 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 New finding 2. 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 Electronically signed by Cody, Steve 12-31-2024 03:04 AM Lumbar Spine MRI 01/01/25 12:10 Lumbar spine MRI without IV contrast History: History of lumbar infection Comparison: MRI from September 17, 2024 Technique: Sagittal T1-weighted, sagittal STIR, 3D volumetric axial and sagittal reconstructed T2-weighted images of the lumbar spine were obtained without intravenous contrast. Findings: There are 5 lumbar-type vertebrae assumed for the purposes of this dictation. The tip of the conus medullaris is at L1. Normal lumbar vertebral alignment. There is multilevel degenerative disc height loss, which is similar to prior, and overall moderate at the T12-L1, L1-L2, L4-L5, and L5-S1 levels. There may be mild disc height loss at L2-L3 and L3-L4. Significant interval decrease in the signal abnormality at the T12-L1 endplates, with both decreased size as well as signal intensity from prior. There continues to be subtle low T1 signal abnormality, especially the inferior T12 endplate. There are a few tiny foci of high signal intensity within the disc space, otherwise the diffuse high signal abnormality on prior is resolved. There is no abnormality in the spinal canal at this level. Similar-appearing multilevel degenerative changes, including small disc bulges, facet arthropathy and ligamentum flavum thickening. There is again moderate right and severe left neuroforaminal narrowing at L3-4, severe right and moderate to severe left neuroforaminal narrowing at L4-5, and moderate to severe bilateral neuroforaminal narrowing at L5-S1. Paraspinous tissues are within normal limits. Note: The following findings are common in the absence of low back pain and while we report their presence, they must be interpreted with caution and in the context of the clinical situation. (Reference -Bryank et al, Spine 2001) Findings (prevalence in patients without low back pain) Disc degeneration (decreased T2 signal, height loss, bulge) (91%) Disc T2 - signal loss (83%) Disc height loss (56%) Disc bulge (64%) Disc protrusion (32%) Annular tear (38%). Impression: Significant interval decrease in signal abnormality at the T12-L1 level from prior, which may represent resolved or resolving osteomyelitis/discitis. Some residual high STIR signal change at this level suggest some mild ongoing inflammation. Electronically signed by Felix Pal 01-01-2025 2:25 PM Medications Administered Current Inpatient Medications Aspirin (Aspirin 81 Mg Ectab) 81 mg PO QAM BRENDA Stop: 01/30/25 08:59 Last Admin: 01/04/25 09:16 Dose: 81 mg Miguel Syrup (Miguel Syrup 5 Ml Udp) 5 ml PO DAILY BRENDA Stop: 01/13/25 15:59 Last Admin: 01/04/25 09:15 Dose: 5 ml Meropenem 500 mg/ Syringe 10 mls @ 2 mls/min IV Q8H BRENDA; Protocol Stop: 01/13/25 14:59 Last Admin: 01/04/25 07:23 Dose: 2 mls/min Daptomycin 700 mg/ Syringe 14 mls @ 7 mls/min IV Q24H BRENDA; Protocol Stop: 01/17/25 20:59 Last Admin: 01/03/25 20:54 Dose: 7 mls/min Acetaminophen (Ofirmev) 1,000 mg in 100 mls @ 400 mls/hr IV Q8H BRENDA Stop: 01/07/25 19:59 Potassium Chloride (K Ken / Wtr) 10 meq in 100 mls @ 100 mls/hr IV Q1H BRENDA Stop: 01/04/25 15:14 Last Admin: 01/04/25 13:18 Dose: 100 mls/hr Lorazepam (Lorazepam 2 Mg/1 Ml Vial) 0.5 mg IV Q6H PRN PRN Reason: Anxiety/Agitation Stop: 02/01/25 14:43 Last Admin: 01/02/25 14:56 Dose: 0.5 mg Ondansetron HCl (Ondansetron Inj 2 Mg/Ml 2 Ml Vial) 4 mg IV Q6H PRN PRN Reason: Nausea Stop: 01/30/25 00:21 Pantoprazole Sodium (Pantoprazole 40 Mg Tab) 40 mg PO QAM BRENDA Stop: 02/01/25 08:59 Last Admin: 01/04/25 09:16 Dose: 40 mg Vancomycin HCl (Vancomycin Hcl 125 Mg/2.5ml Soln) 125 mg PO DAILY BRENDA Stop: 01/13/25 15:59 Last Admin: 01/04/25 09:17 Dose: 125 mg PG Care Time/CCT Total # of Minutes Spent Total Time Spent with Patient: Total time spent is greater than 50% in coordination of care (as documented) at patient's floor/unit and/or counseling patient: C[place] [address] SUB INP/OBS CARE 2/35MIN Patient Type Established History Problem Focused Exam Problem Focused Medical Decision Making Straight Forward Diagnoses Palliative care by specialist Z51.5 Advance directive in chart Z78.9 POLST (Physician Orders for Life-Sustaining Treatment) Z78.9 Counseling regarding goals of care Z71.89
--- NOTE | 2025-01-04 11:25 | Hospitalist Progress Note ---
Date of Service January 04, 2025 Assessment & Plan (1) Acute bacterial endocarditis: Plan: Suspected. 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 MOIZ has been ordered. Infectious disease consultation requested and pending. Blood cultures positive for Enterococcus faecium. Urine is growing Pseudomonas. Now on meropenem/ daptomycin. Daptomycin will continue for the enterococcus positive blood culture. Awaiting negative blood cultres x 48 hours repeated again on 01/04. Overall poor prognosis given recurrent bacteremia. Patient has been admitted multiple times in the past year. Appreciate palliative care input (2) Bacteremia: Plan: Enterococcus faecium isolated. Now on meropenem and Daptomycin This will be continued. 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 Lumbar MRI scan does not reveal any drainable abscess collection. Infectious disease consultation reviewed (3) Embolic stroke: Plan: Multiple ischemic embolic acute CVA noted in the left cerebellar lobe. More than likely this is from suspected BRYAN. Supportive care. (4) Metabolic encephalopathy: Plan: Present on admission. Due to CAUTI, bacteremia and acute CVA. Supportive care (5) Urinary tract infection: Plan: Catheter associated. Pseudomonas isolated in the urine. ABX as above. (6) Back pain: Plan: Chronic. History of lumbar discitis in October of this year treated with a prolonged course of intravenous antibiotics. Repeat lumbar MRI negative for abscess formation. Pain control measures (7) Dementia: Plan: Severe. Supportive measures Plan To be determined. Hopeful eventual return to [facility] once cultures are negative. will need 6 weeks of antibiotics from negative culture Admission and Anticipated Discharge Date Admission Date: December 30, 2024 Subjective 84 yo male reports no new symptoms. Physical Exam Physical Exam: General-alert. Nonverbal. No fever HEENT-head atraumatic and normocephalic, pupils equal and reactive to light, extraocular muscles intact Neck-no lymphadenopathy or thyromegaly, trachea midline Chest-scattered rhonchi. No respiratory rales. No wheezing Cardiac-regular rate and rhythm, normal S1 and S2 Abdomen-normal bowel sounds, no hepatosplenomegaly Psych-flat. Baseline disorientation due to dementia Results & Data Results & Data Vital Signs (Past 12 Hours) Vital Signs Temp Pulse Pulse Resp BP BP Pulse Ox 01/04/25 11:13 133/90 01/04/25 09:44 95 H 01/04/25 08:13 36.5 C 86 20 133/85 97 01/04/25 07:35 01/04/25 03:06 36.5 C 90 24 124/83 94 01/04/25 00:13 93 H 01/04/25 00:00 01/03/25 23:48 Pulse Ox O2 Del Method O2 Del Method 01/04/25 11:13 01/04/25 09:44 01/04/25 08:13 Room Air 01/04/25 07:35 Room Air 01/04/25 03:06 Room Air 01/04/25 00:13 01/04/25 00:00 92 Room Air 01/03/25 23:48 Room Air PG Care Time/CCT Total # of Minutes Spent Total Time Spent with Patient: Total time spent is greater than 50% in coordination of care (as documented) at patient's floor/unit and/or counseling patient: Coding Level of Care Code 84322 SUB INP/OBS CARE 3/50MIN Diagnoses Acute bacterial endocarditis I33.0 Bacteremia R78.81 Embolic stroke I63.9 Metabolic encephalopathy G93.41 Urinary tract infection N39.0 Back pain M54.9 Dementia F03.90 Dementia behavioral or psychological symptom: unspecified whether behavioral, psychotic, or mood disturbance or anxiety Dementia severity: unspecified severity Dementia type: unspecified type (7) Dementia Dementia behavioral or psychological symptom: unspecified whether behavioral, psychotic, or mood disturbance or anxiety Dementia severity: unspecified severity Dementia type: unspecified type Qualified Code(s): F03.90 - Unspecified dementia, unspecified severity, without behavioral disturbance, psychotic disturbance, mood disturbance, and anxiety
[2025-01-04] MEDS: ACETAMINOPHEN 1,000 MG/100 ML VIAL IV PRN (12:07)
[2025-01-04] MEDS: POTASSIUM CHLORIDE / WTR 10 MEQ/100 ML PLCT IV SCH (13:18)
[2025-01-04 17:40] LABS: A calco-baum cmplx NotReported Not Detected (NotDetected); Bact fragilis Not Reported Not Detected (NotDetected); Blood Culture Id Panel See PCR Comment (NotDetected); C auris Not Reported Not Detected (NotDetected); Calbicans Not Reported Not Detected (NotDetected); Candida glabrata Not Reported Not Detected (NotDetected); Candida krusei Not Reported Not Detected (NotDetected); Cneoformans/gatti Not Reported Not Detected (NotDetected); Cparapsilosis Not Reported Not Detected (NotDetected); Ctropicalis Not Reported Not Detected (NotDetected); E cloacae compx Not Reported Not Detected (NotDetected); Efaecalis Not Reported Not Detected (NotDetected); Efaecium Not Reported DETECTED (NotDetected); Enterobacterales Not Reported Not Detected (NotDetected); Escherichia coli Not Reported Not Detected (NotDetected); H influenzae Not Reported Not Detected (NotDetected); K aerogenes Not Reported Not Detected (NotDetected); Koxytoca Not Reported Not Detected (NotDetected); Kpneumoniae grp Not Reported Not Detected (NotDetected); Lmonocyt Not Reported Not Detected (NotDetected); N meningitidis Not Reported Not Detected (NotDetected); P aeruginosa Not Reported Not Detected (NotDetected); Proteus spp Not Reported Not Detected (NotDetected); Salmonella spp Not Reported Not Detected (NotDetected); Staph lugdunensis Not Reported Not Detected (NotDetected); Staph spp. Not Reported Not Detected (NotDetected); Staphaureus Not Reported Not Detected (NotDetected); Staphepi Not Reported Not Detected (NotDetected); Stenmaltophilia Not Reported Not Detected (NotDetected); Strep agal(GrpB) Not Reported Not Detected (NotDetected); Strep pneum Not Reported Not Detected (NotDetected); Strep pyog (GrpA) Not Reported Not Detected (NotDetected); Strep spp Not Reported Not Detected (NotDetected); VanAB Resistant Gene VRE Not Detected (NotDetected)
[2025-01-04 17:50] LABS: Enterococcus faecium DETECTED (NotDetected)
[2025-01-04] MEDS: ACETAMINOPHEN 1,000 MG/100 ML VIAL IV SCH (19:55)
[2025-01-05 06:05] LABS: Hematocrit (blood only) 30.6 % (42.0-52.0); Hemoglobin 10.1 g/dl (14.0-18.0); Mean Corpuscular Hemoglobin 29.2 pg (25.0-34.0); Mean Corpuscular Volume 88.4 fL (80.0-100.0); Platelet Count 169 K/uL (130-400); RDW Standard Deviation 53.0 fL (36.4-46.3); Red Blood Count 3.46 M/uL (4.70-6.10); White Blood Count 8.10 K/ul (4.8-10.8)
[2025-01-05 06:19] LABS: Anion Gap 4.0 (3-11); Blood Urea Nitrogen 19.0 mg/dl (6-23); Calcium 8.1 mg/dl (8.6-10.3); Carbon Dioxide 25.0 mmol/L (21-32); Chloride 105.0 mmol/L (98-107); Creatinine Clr Calc Pharmacy 107.9 ml/min; Glucose 100.0 mg/dl (70-99(Fasting)); Potassium 3.6 mmol/L (3.5-5.1); Sodium 134.0 mmol/L (136-145)
[2025-01-05] MEDS: LIDOCAINE 5% 1 PATCH TD SCH (09:09)
--- NOTE | 2025-01-05 10:13 | Infectious Disease Progress Nt ---
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 diff Micro: 01/04 BCx x2: pending 01/03 BCx x2: E faecium in 3/4 bottles 12/30 UCx: Pseudomonas (mares-S), ESBL E coli (R cipro, levo. S erta, vicky, TMP/SMX) 12/30 BCx x2: E faecium in 4/4 bottles (S dapto, linezolid, vanc MARTA 0.25) 11/02 BCx x2: NG 10/28 BCx x2: E faecium in 1/4 bottles 10/27 Catheter tip cx: NG 10/26 UCx: Pseudomonas, Natacha 10/26 BCx x2: E faecium in 4/4 bottles (S dapto MARTA 4, vanc MARTA 0.25, linezolid MARTA 1. R ampicillin. Also R to doxy, levo per conversation with micro lab) 09/15 BCx x2: E faecium in 3/4 bottles (S dapto MARTA 2, vanc MARTA 0.5. R ampicillin) 09/14 BCx x1: VRE in 2/2 bottles 09/13 BCx x2: VRE in 4/4 bottles 09/12 BCx x2: VRE in 4/4 bottles (S dapto MARTA 4. R vanc MARTA >16, ampicillin) Abx: Dapto 12/30 - present Meropenem 01/03 - present Pip-tazo 12/30 - 01/03 84 yo M resident of [facility], nonverbal, with h/o prior CVA, dementia, seizure, chronic indwelling martinez, recurrent UTIs, paroxysmal atrial tachycardia, bicuspid valve s/p aortic valve replacement/proximal aortic aneurysm repair 2013, left hip replacement in 2022, HTN, prior C. diff infection 07/2023 with recurrence 08/2023, admission 09/12-09/23/24 with back pain with progressive bl LE weakness x few weeks f/w VRE faecium bacteremia (T12-L1 discitis/OM, suspected PVE since MOIZ deferred, TTE neg) on dapto/ampicillin x 6wks (anticipated end 10/27). He was readmitted 10/26-11/09/24 with recurrent E faecium bacteremia while on dapto/ampicillin (10/26, 10/28), acute hypoxic respiratory failure, parainfluenza. During that admission, PICC was removed and catheter tip cx negative. MRI C/T/L spine without new areas of infection. TTE without obvious endocarditis, but severity of mitral regurg appeard to be increased compared to prior. MOIZ deferred given GOC and ineligibility for surgery. CTA chest was performed 11/02 to assess aortic graft material for infection--per radiologist, for ideal assessment, would need to time the contrast differently, but no signs of graft infection on that CT. PICC line was replaced and he was discharged on another 6 week course of daptomycin and ampicillin through 12/13/24, with plan to switch to lifelong supppressive PO antibiotic subsequently. He was subsequently seen at [facility] for ID follow-up with plan to switch to omadacycline for PO suppression after completing IV antibiotic course. Per pt's daughter, pt was looking the best she has seen him on 12/14--sitting up straight in his wheelchair, eating on his own, without back pain. Unfortunately, there were delays with insurance approval, and he was not started on omadacycline until 12/26. He was therefore off antibiotics from 12/14-12/25. During this time, he started getting worse, and by 12/25, he was slumped over, not as engaged, with severe back pain again. He began to have fevers along with AMS, rigors on 12/30 AM, so he presented to the ED, and was found to have recurrent E faecium bacteremia. On presentation, pt was afebrile, hemodynamically stable, RR 10. Labs showed WBC 9.51, normal lactate, AST 70, AST 35, alk phos 109. UA with >50 WBCs. CTAP with contrast showed a mild constipation. CTA chest with no PE, prosthetic aortic valve, previous surgical repair of ascending aorta without residual aneurysm or dissection. MRI brain with few small acute infarcts in L cerebellum. MRI L spine without contrast showed significant interval decrease in signal abnormality at T12-L1 level from prior, which may represent resolved or resolving osteomyelitis/discitis, some residual high STIR signal change at this level suggests some mild ongoing inflammation. Pt was started on daptomycin and pip- tazo. BCx grew E faecium. UCx grew Pseudomonas and ESBL E coli. TTE unable to exclude vegetation involving atrial side of anterior leaflet of mitral valve or aortomitral curtain. Pt's family did not want to pursue MOIZ or surgical intervention if endocarditis was noted. Cardiology also feels pt would not be a good surgical candidate, so there was no clear benefit for MOIZ. Discussion: Pt with recurrent E faecium bacteremia after being on dapto and ampicillin from 09/16-12/13 (>12 weeks). Plan had been to transition to a suppressive PO antibiotic, but unfortunately due to delays in insurance approval, pt was not started on omadacycline until 12/26. Pt with AVR and proximal aortic aneurysm repair, which may be sites of persistent infection. TTE raises continued concern for mitral valve endocarditis. Pt also with new small infarcts in cerebellum, could be embolic. Note that pt initially had VRE bacteremia 09/12-09/14, then vanc-sensitive E faecium bacteremia 09/15, 10/26, 10/28, 12/30. There may be different E faecium subpopulations? Also uncertain whether we can trust the vanc susceptibility. Will treat with daptomycin. Also currently on meropenem to cover Pseudomonas and ESBL E coli in the urine (uncertain significance), but will plan to transition this to ampicillin soon for synergy. Recommendations: - Continue meropenem for Pseudomonas and ESBL E coli in the urine culture, although uncertain significance and may represent colonizers - Recommend martinez exchange if it has not already been done this admission - Continue daptomycin 700 mg IV q24h given persistent complicated infection. Confirmed dosage with ID pharmacist. Baseline CK 50 on 01/03. Next CK check ordered for 01/10. - Ordered repeat blood cultures for 01/06 AM - Anticipate another 6 week course of IV antibiotics (likely daptomycin and ampicillin) via PICC, followed by transition to lifelong PO suppressive antibiotic. - Continue C diff prophylaxis while on systemic antibiotics - Will need follow-up with ID at [facility] Will continue to follow Admission and Anticipated Discharge Date Admission Date: December 30, 2024 Subjective This patient recommendation is based on a telemedicine consult request which was completed asynchronously through chart review and information provided by the primary physician. The patient was not seen or examined today. The evaluation is consultative in nature and all patient care and treatment decisions can either be accepted or rejected by the patient's primary hospital-based treating physician using their own independent medical judgment for their patient. Time Spent Reviewing Chart: 11 - 20 minutes 01/03 BCx growing E faecium again Results & Data Vital Signs (Past 12 Hours) Vital Signs Temp Pulse Pulse Resp BP Pulse Ox O2 Del Method 01/05/25 08:00 36.6 C 72 17 134/80 97 Room Air 01/05/25 05:39 79 01/05/25 04:00 Room Air 01/05/25 03:35 36.6 C 82 22 136/90 94 Room Air 01/05/25 00:36 36.5 C 81 26 H 131/88 98 Room Air Laboratory Results Short CBC 01/05/25 Range/Units 05:29 WBC 8.10 (4.8-10.8) K/ul Hgb 10.1 L (14.0-18.0) g/dl Hct 30.6 L (42.0-52.0) % Plt Count 169 (130-400) K/uL BMP 01/05/25 05:29 Sodium 134 L Potassium 3.6 Chloride 105 Carbon Dioxide 25 BUN 19 Creatinine 0.49 L Glucose 100 H Calcium 8.1 L Medications Administered Current Inpatient Medications Aspirin (Aspirin 81 Mg Ectab) 81 mg PO QAM BRENDA Stop: 01/30/25 08:59 Last Admin: 01/05/25 09:09 Dose: 81 mg Miguel Syrup (Miguel Syrup 5 Ml Udp) 5 ml PO DAILY BRENDA Stop: 01/13/25 15:59 Last Admin: 01/05/25 09:09 Dose: 5 ml Meropenem 500 mg/ Syringe 10 mls @ 2 mls/min IV Q8H BRENDA; Protocol Stop: 01/13/25 14:59 Last Admin: 01/05/25 06:05 Dose: 2 mls/min Daptomycin 700 mg/ Syringe 14 mls @ 7 mls/min IV Q24H BRENDA; Protocol Stop: 01/17/25 20:59 Last Admin: 01/04/25 20:20 Dose: 7 mls/min Acetaminophen (Ofirmev) 1,000 mg in 100 mls @ 400 mls/hr IV Q8H [facility] Stop: 01/07/25 19:59 Last Infusion: 01/05/25 04:12 Dose: Infused Lidocaine (Lidocaine 5% 1 Patch) 1 patch TD QAM [facility] Stop: 02/04/25 08:59 Last Admin: 01/05/25 09:09 Dose: 1 patch Lorazepam (Lorazepam 2 Mg/1 Ml Vial) 0.5 mg IV Q6H PRN PRN Reason: Anxiety/Agitation Stop: 02/01/25 14:43 Last Admin: 01/02/25 14:56 Dose: 0.5 mg Miscellaneous (Remove Lidoderm Patch) 1 each N/A DAILY@2100 [facility] Stop: 02/04/25 20:59 Ondansetron HCl (Ondansetron Inj 2 Mg/Ml 2 Ml Vial) 4 mg IV Q6H PRN PRN Reason: Nausea Stop: 01/30/25 00:21 Pantoprazole Sodium (Pantoprazole 40 Mg Tab) 40 mg PO QAM [facility] Stop: 02/01/25 08:59 Last Admin: 01/05/25 09:09 Dose: 40 mg Vancomycin HCl (Vancomycin Hcl 125 Mg/2.5ml Soln) 125 mg PO DAILY [facility] Stop: 01/13/25 15:59 Last Admin: 01/05/25 09:08 Dose: 125 mg
--- NOTE | 2025-01-05 10:34 | Hospitalist Progress Note ---
Date of Service January 05, 2025 Assessment & Plan (1) Acute alteration in mental status: (2) Stroke-like symptom: (3) Urinary tract infection: (4) Back pain: (5) Dementia: Plan Pt is a 84 yo M resident [facility], nonverbal, with h/o prior CVA, dementia, seizure, chronic indwelling martinez, recurrent UTIs, paroxysmal atrial tachycardia, bicuspid valve s/p aortic valve replacement/proximal aortic aneurysm repair, left hip replacement and recurrent infections. He began to have fevers along with AMS, rigors on 12/30 AM and was found to have recurrent E faecium bacteremia. 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 Family defers MOIZ and surgery - Blood cultures positive for vancomycin sensitive Enterococcus faecium. Urine is growing Pseudomonas and ESBL E coli. - Infectious disease recommended continuing Daptomycin (from 12/30) and Meropenem (from 01/03), Pip-tazo was discintinued (12/30 - 01/03) - Pending blood cultures x 48 hours. - Overall poor prognosis given recurrent bacteremia. Patient has been admitted multiple times in the past year. - Palliative care input reviewed Bacteremia: - Enterococcus faecium isolated likely due to endocarditis - Infectious disease consultation reviewed: recommended continuing meropenem and Daptomycin. Oral vancomycin given for C. diff prohpylaxis - History of lumbar discitis/osteomyelitis in October of this year with this pathogen treated with daptomycin + ampicillin from 09/16-12/13 and omadacycline starting 12/26 due to insurance difficulties - MRI spine shows decreased signal in the T12- L1 indicative of resolving OM/discitis and increased STIR signal in the same region suggestive of ongoing inflammation. Embolic stroke - MRI brain shows multiple embolic CVA noted in the left cerebellar lobe. Suspected embolic process from endocarditis. - CTA shows 30% stenosis in the right ICA, and 20% stenosis in the left ICA - Supportive care. Metabolic encephalopathy - Present on admission. - Due to CAUTI, bacteremia and acute CVA. - Supportive care Urinary tract infection: - Catheter associated. Pseudomonas and ESBL E coli isolated in the urine. - Continue meropenem Back pain: - History of lumbar discitis/osteomyelitis in October of this year - Repeat lumbar MRI negative for abscess formation. Acetaminophen for pain control. Dementia: - Severe. Supportive measures Admission and Anticipated Discharge Date Admission Date: December 30, 2024 Supervising Physician Co-Signing Physician Notes I personally examined the patient and verified all brandon points of history and exam, discussed case, and agree with decision making with Dr Arce and Marybel Stout MS4 no meaningful HPI or ROS. dtr at bedside. extensive discussions re end of life decision making/care. offered empathy and support as well as guidance to the best of my ability vitals noted frail and emaciated but no acute distress or appearance of discomfort. breathing unlabored enterococcus bacteremia/endocarditis - ongoing abx management, await clearance on cx frailty/dementia/decline - discussed end of life decision making with dtr extensively, gave guideposts to help her and her mom think through different facets of the decision making process, offered empathy and support.. otherwise as above Subjective Patient is a 84 yo M who is nonverbal, with h/o prior CVA, dementia, seizure, chronic indwelling martinez, recurrent UTIs, paroxysmal atrial tachycardia, bicuspid valve s/p aortic valve replacement/proximal aortic aneurysm repair 2013, left hip replacement, HTN, prior C. diff infection, admission 09/12-09/23/24 for VRE faecium bacteremia (T12-L1 discitis/OM) on dapto/ampicillin. He was readmitted 10/26-11/09/24 with recurrent E faecium bacteremia while on dapto/ampicillin, acute hypoxic respiratory failure, and parainfluenza. He began to have fevers, AMS, rigors on 12/30, so he presented to the ED, and was found to have recurrent E faecium bacteremia. Minimal 1-3 word speech but denies fever, chest pain, abdominal pain. Urine martinez in place. Does not feel hungry. Physical Exam Physical Exam: General: Minimally verbal. in NAD, waxes and wanes in consciousness HEENT: head atraumatic and normocephalic, closes eye when light is shone, EOM intact CV: regular r/r, normal S1, aortic stenosis murmur on the left sternal border Lungs: normal RR, no increase WOB, right mid and lower lobe rhonchi Abdomen: normal BS, nontender to palpation Neuro: Left lower facial droop, normal sensation to touch on RLE and LLE, only able to wiggle left foot, unable to lift right or left LE, movement in the right and left UE intact. Psych: Flat and disoriented due to disorientation due to dementia Results & Data Results & Data Vital Signs (Past 12 Hours) Vital Signs Temp Pulse Pulse Resp BP Pulse Ox O2 Del Method 01/05/25 08:00 36.6 C 72 17 134/80 97 Room Air 01/05/25 05:39 79 01/05/25 04:00 Room Air 01/05/25 03:35 36.6 C 82 22 136/90 94 Room Air 01/05/25 00:36 36.5 C 81 26 H 131/88 98 Room Air Resident Activity Tracking Resident Involvement: Resident Care Provided Care Provided: Adult Hospital Medicine (5) Dementia Dementia behavioral or psychological symptom: unspecified whether behavioral, psychotic, or mood disturbance or anxiety Dementia severity: unspecified severity Dementia type: unspecified type Qualified Code(s): F03.90 - Unspecified dementia, unspecified severity, without behavioral disturbance, psychotic disturbance, mood disturbance, and anxiety
--- NOTE | 2025-01-05 10:53 | Palliative Care Progress Note ---
Date of Service January 05, 2025 Assessment & Plan (1) Palliative care by specialist: Plan: We will sign off on this patient as goals of care are clearly established with no acute symptom mgt needs and a clear dispo plan agreed upon by family. Thank you for including Palliative Care in the management of this patient. Please call with any questions or concerns regarding this consultation. (2) Advance directive in chart: Plan: Patient currently lacks decisional capacity based on the inability to convey understanding of personal PMHx, current medical condition, treatment options nor the risks / benefits/ potential outcomes of accepting/declining those options, and inability to make decisions based on such knowledge. Hospital does have written documentation of patient wishes concerning his chosen proxy for medical decisions. AD paperwork on file which was properly executed by patient on 04/30/23 designates patient's Spouse Roxana Lopez ([phone]) as primary HCPOA and his daughter Radha Higginbotham ([phone]) as secondary HCPOA for all medical decisions in the event he lacks decisional capacity. Pt does require a proxy for medical decisions and given the progressively debilitating nature of dementia, I suspect this will continue through his life span. Pt's Roxana and daughter Renita are both present and agreeable to serving as proxy for medical decisions. (3) POLST (Physician Orders for Life-Sustaining Treatment): Plan: POLST form on file that indicates DNR/DNI, limited additional interventions, no artificial nutrition or hydration, and ABx as needed. (4) Counseling regarding goals of care: Plan: 01/04: Renita at bedside this morning. Discussed GOC and reviewed previous discussions with her. questions encouraged and answered. Renita confirmed plan for completion of current course of IV Abx per ID recs and then transition to oral ABx prophylaxis and discharge to LTC. She reinforced that for now the pt will remain DNR/DNI, but continue all other life prolonging treatments. 01/03/25: GOC discussion held with Roxana and Renita, topics discussed in layman's terms included (not limited to) pt's current hospital course, comorbidities, baseline dementia, frequent admissions for bacteremia without possibility of source control and deconditioning of chronic illness and immobility. We discussed how all these factors may work against pt in his recovery from current and future infections/sepsis. Spent a substantial amount of time discussing the progressively debilitating nature of dementia. Explained that dementia is incurable and irreversible, and can include progressive/worsening memory loss, confusion, language difficulties/lack of comprehension skills/loss of verbal skills eventually, mood changes, impaired judgment, trouble with motor skills/coordination/balance issues, visual and spatial problems, hallucinations, and personality changes. The rate of progression in mixed dementia can vary widely from person to person. Factors such as the types of dementia involved, overall health, and genetics can influence the speed of progression. Some individuals experience a more gradual decline, while others may progress more rapidly through the stages. We discussed and differentiated dementia from delirium and helped family understand that they can co-exist. I reviewed Dementia is a terminal illness. Aggressive medical treatment for patients with advanced dementia is often inappropriate for medical reasons, has a low rate of success, and can have negative outcomes that hasten functional decline and . ([place] [employer] Ethics Committee and Clinical Practice and Models of Care Committee. J Am Geriatr Soc. 2014 Aug;62(8):1590-3 and Terrence SL, Zohaib JM, Kim SC, Rakan V. A national study of the location of for older persons with dementia. J Am Geriatr Soc 2005; 53(2):299-305.). Renita identified the patient as in stage 5 bordering on 6 in his dementia, although she did admit that here in the hospital he appear to be Stage 6. We discussed that in late stages of dementia, poor PO intake and decreased mobility puts patient's at higher risk of injury and infection but also makes recovery of these insults more difficult resulting in frequent ED visits and admissions. We discussed the utilization of hospice services in stages 6 and 7 to optimize patient comfort and focus on quality of life vs quantity of days. Both Renita and Roxaan shared that they are thankful for the information and they realize that they need to start focus on where the patient would draw the line on continuing to prolong life. Both adamantly stated that they would not pursue a PEG tube or any "forced feedings" because these are not c/w pt wishes. They shared that they have been in touch with hospice team at [facility] and at this time they would like to start making plans toward transition to hospice care for the future. They shared that they would like to allow the pt to transition to oral ABx and see if he can have some quality of life before he again develops septicemia. Plan as above Admission and Anticipated Discharge Date Admission Date: December 30, 2024 Subjective Assessed pt at bedside today, no visitors at bedside. NAONE. Pt awake and alert, pleasantly confused per baseline. He denied any discomfort. Review of Systems Review of Systems: All systems reviewed & are unremarkable except as noted in Subjective Physical Exam Physical Exam: sleeping, snoring but in NAD on nasal canula. Constitutional: + ill appearing, + thin and + frail appe aring; no acute distress Eyes: PERRL, conjunctivae normal, anicteric sclerae Neck: trachea midline, no thyromegaly Respiratory: normal respiratory effort, lungs clear to auscultation Cardiovascular: RRR, no murmur, no edema Gastrointestinal (Abdomen): normal bowel sounds, soft, nontender, no hepatosplenomegaly Psychiatric: Orientation: alert and oriented to person Results & Data Vital Signs (Past 12 Hours) Vital Signs Temp Pulse Pulse Resp BP Pulse Ox O2 Del Method 01/05/25 08:00 36.6 C 72 17 134/80 97 Room Air 01/05/25 05:39 79 01/05/25 04:00 Room Air 01/05/25 03:35 36.6 C 82 22 136/90 94 Room Air 01/05/25 00:36 36.5 C 81 26 H 131/88 98 Room Air Laboratory Results Abnormal lab results 01/03/25 01/05/25 Range/Units 15:10 05:29 RBC 3.46 L (4.70-6.10) M/uL Hgb 10.1 L (14.0-18.0) g/dl Hct 30.6 L (42.0-52.0) % RDW Std Deviation 53.0 H (36.4-46.3) fL RDW Coeff of Stormy 16.5 H (11.5-14.5) % MPV 9.0 L (9.4-12.4) fL Sodium 134 L (136-145) mmol/L Creatinine 0.49 L (0.6-1.4) mg/dl BUN/Creatinine Ratio 38.8 H (10-20) Glucose 100 H (70-99(Fasting)) mg/dl Calcium 8.1 L (8.6-10.3) mg/dl Enterococc faecium PCR DETECTED A (NotDetected) Diagnostic Findings Chest X-Ray 12/30/24 19:55 Exam(s): XR CXR 1 VIEW EXAM: XR Chest, 1 View CLINICAL HISTORY: Reason for exam: Sepsis. TECHNIQUE: Frontal view of the chest. COMPARISON: 11/01/2024 FINDINGS: Lungs: Lungs are well inflated with slightly prominent interstitial markings. The previously seen edema has resolved. No acute infiltrate or effusion identified. Pleural space: Unremarkable. No pneumothorax. Heart: See below. Mediastinum: Unremarkable. Normal mediastinal contour. 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 The cardiac silhouette is mildly enlarged, unchanged. No acute fracture. Upper abdomen: Unremarkable as visualized. No pneumoperitoneum under the diaphragm. IMPRESSION: 1. Lungs are well inflated with slightly prominent interstitial markings. The previously seen edema has resolved. No acute infiltrate or effusion identified. 2. 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 The cardiac silhouette is mildly enlarged, unchanged. Electronically signed by: Slick Cain MD 12/30/24 20:[address] 12/30/24 19:55 Exam(s): CT HEAD Without Contrast EXAM: CT Head Without Intravenous Contrast CLINICAL HISTORY: Reason for exam: stroke. TECHNIQUE: Axial computed tomography images of the head/brain without intravenous contrast. CTDI is 36 mGy and DLP is 1165 mGy-cm. Automated exposure control was utilized for the study. A dose lowering technique was utilized adhering to the principles of ALARA. COMPARISON: No relevant prior studies available. FINDINGS: Brain: Mild cerebral atrophy and periventricular white matter low density consistent with chronic small vessel disease and/or senescent changes. No acute large vessel infarct or intracranial hemorrhage is seen. Ventricles: Mildly dilated. No mass or hemorrhage. Bones/joints: Unremarkable. No acute fracture. Soft tissues: Unremarkable. Sinuses: Unremarkable as visualized. No acute sinusitis. Mastoid air cells: Unremarkable as visualized. No mastoid effusion. IMPRESSION: Mild cerebral atrophy and periventricular white matter low density consistent with chronic small vessel disease and/or senescent changes. No acute large vessel infarct or intracranial hemorrhage is seen. Electronically signed by: Slick Cain MD 12/30/24 21:00 PM Head CTA 12/30/24 19:55 Exam(s): CTA HEAD With Contrast EXAM: CT Head With Intravenous Contrast CLINICAL HISTORY: Reason for exam: stroke. TECHNIQUE: Axial computed tomographic images of the head with intravenous contrast. CTDI is the 36 mGy and DLP is 1165 mGy-cm. Automated exposure control was utilized for the study. A dose lowering technique was utilized adhering to the principles of ALARA. CONTRAST: Information not available. Critical stroke study. COMPARISON: Precontrast study from today. FINDINGS: Right internal carotid artery: Calcified plaque causing 20% stenosis of the distal right internal carotid artery. No aneurysm. Right anterior cerebral artery: Unremarkable. No occlusion or significant stenosis. No aneurysm. Right middle cerebral artery: Unremarkable. No occlusion or significant stenosis. No aneurysm. Right posterior cerebral artery: Unremarkable. No occlusion or significant stenosis. No aneurysm. Right vertebral artery: The distal vertebral arteries are tortuous but widely patent. Left internal carotid artery: Calcified plaque causing 25% stenosis of the distal left internal carotid artery. No aneurysm. Left anterior cerebral artery: Unremarkable. No occlusion or significant stenosis. No aneurysm. Left middle cerebral artery: Unremarkable. No occlusion or significant stenosis. No aneurysm. Left posterior cerebral artery: Unremarkable. No occlusion or significant stenosis. No aneurysm. Left vertebral artery: See above. Basilar artery: The basilar artery is mildly tortuous but widely patent. No occlusion or significant stenosis. No aneurysm. IMPRESSION: 1. Up to 25% stenosis of the distal internal carotid arteries bilaterally. 2. The anterior, middle, and posterior cerebral arteries are within normal limits. No aneurysm, vascular malformation, or large vessel occlusion is identified. Electronically signed by: Slick Cain MD 12/30/24 21:09 PM Neck CTA 12/30/24 19:55 Exam(s): CTA NECK With Contrast EXAM: CT Neck With Intravenous Contrast CLINICAL HISTORY: Reason for exam: Stroke. TECHNIQUE: Routine carotid CT protocol was performed with intravenous contrast. NASCET criteria using the distal ICAs for comparison were used for evaluation of stenoses. CTDI is 36 mGy and DLP is 1165 mGy-cm. Automated exposure control was utilized for the study. A dose lowering technique was utilized adhering to the principles of ALARA. CONTRAST: Information not available. Critical stroke study. COMPARISON: None. FINDINGS: VASCULATURE: Right common carotid artery: Calcified plaque causing 30% stenosis of the distal right common carotid artery. No dissection. Right internal carotid artery: 30% stenosis of the proximal right internal carotid artery. The distal right internal carotid artery is tortuous but widely patent. No dissection. Right external carotid artery: Unremarkable. No occlusion. Right vertebral artery: Unremarkable. No occlusion or significant stenosis. No dissection. Left common carotid artery: 25% stenosis of the distal left common carotid artery. No dissection. Left internal carotid artery: 20% stenosis of the proximal left internal carotid artery. The distal left internal carotid artery is tortuous but widely patent. No dissection. Left external carotid artery: Unremarkable. No occlusion. Left vertebral artery: Unremarkable. No occlusion or significant stenosis. No dissection. Aorta: The aortic arch is mildly calcified but nondilated. There is no aneurysm or dissection. NECK: Bones/joints: Mild multilevel degenerative disc disease and facet arthrosis throughout the cervical spine. No acute fracture or subluxation is seen. Soft tissues: Unremarkable. Lung apices: Clear. CAROTID STENOSIS REFERENCE USING NASCET CRITERIA: % ICA stenosis = (1 - narrowest ICA diameter/diameter of distal cervical ICA) x 100. Mild - <50% stenosis. Moderate - 50-69% stenosis. Severe - 70-94% stenosis. Near occlusion - 95-99% stenosis. Occluded - 100% stenosis. IMPRESSION: 1. 30% stenosis of the proximal right internal carotid artery. 2. 20% stenosis of the proximal left internal carotid artery. Electronically signed by: Slick Cain MD 12/30/24 21:03 PM Abdomen/Pelvis CT 12/30/24 20:01 Exam(s): CT ABDOMEN + PELVIS With Contrast IV Amt: 119ml optiray 320 EXAM: CT Abdomen and Pelvis With Intravenous Contrast CLINICAL HISTORY: Reason for exam: ams. TECHNIQUE: Axial computed tomography images of the abdomen and pelvis with intravenous contrast. CTDI is 36 mGy and DLP is 1165 mGy-cm. Automated exposure control was utilized for the study. A dose lowering technique was utilized adhering to the principles of ALARA. CONTRAST: Patient received 119ml optiray 320 of IV contrast COMPARISON: No relevant prior studies available. FINDINGS: Lung bases: Unremarkable. No mass. No consolidation. ABDOMEN: Liver: Unremarkable. No mass. Gallbladder and bile ducts: Unremarkable. No calcified stones. No ductal dilation. Pancreas: Unremarkable. No mass. No ductal dilation. Spleen: Unremarkable. No splenomegaly. Adrenals: Unremarkable. No mass. Kidneys and ureters: 2.9 cm simple cysts in the right kidney. No follow-up is required. No hydronephrosis. Stomach and bowel: Bowel loops are nondilated. There is a relatively large amount of stool in the right colon measuring up to 7 cm suggesting possible mild constipation. No pneumoperitoneum, free fluid, or acute inflammatory changes are seen involving the bowel. No mucosal thickening. PELVIS: Appendix: No findings to suggest acute appendicitis. Bladder: The urinary bladder is decompressed by [place] catheter and otherwise unremarkable. Reproductive: Unremarkable as visualized. ABDOMEN and PELVIS: Intraperitoneal space: See above. Bones/joints: Metal artifact from left hip arthroplasty. There are [id number] osteoarthritic changes of the right hip. No hip or pelvic fracture is seen. Nuce-ob-etawuzwb degenerative changes in the lumbar spine including spondylolysis at L5 without spondylolisthesis. No acute fracture is seen. No dislocation. Soft tissues: Unremarkable. Vasculature: The abdominal aorta is moderately calcified but nondilated. There is no aneurysm or dissection. Lymph nodes: Unremarkable. No enlarged lymph nodes. IMPRESSION: Bowel loops are nondilated. There is a relatively large amount of stool in the right colon measuring up to 7 cm suggesting possible mild constipation. No pneumoperitoneum, free fluid, or acute inflammatory changes are seen involving the bowel. Electronically signed by: Slick Cain MD 12/30/24 21:37 PM Chest CTA 12/30/24 20:01 Exam(s): CTA CHEST IV Amt: 119ml optiray 320 EXAM: CT Angiography Chest With Intravenous Contrast CLINICAL HISTORY: Reason for exam: PE. TECHNIQUE: Axial computed tomographic angiography images of the chest with intravenous contrast. CTDI is 36 mGy and DLP is 1165 mGy-cm. Automated exposure control was utilized for the study. A dose lowering technique was utilized adhering to the principles of ALARA. MIP reconstructed images were created and reviewed. COMPARISON: No relevant prior studies available. FINDINGS: Pulmonary arteries: The pulmonary arterial tree is well opacified with contrast. No pulmonary emboli are identified. Aorta: The thoracic aorta is mildly calcified. There is a prosthetic aortic valve with 4.5 cm ectasia of the aortic root. There are calcified suture lines indicating previous surgical repair of the ascending aorta without residual aneurysm or dissection. The descending thoracic aorta is nondilated. Lungs: Scattered linear densities in both lung bases consistent with subsegmental atelectasis. Some component of edema and fibrosis may also be present. No mass. Pleural space: Unremarkable. No significant effusion. No pneumothorax. Heart: The heart is mildly enlarged. No pericardial effusion is seen. No evidence of RV dysfunction. Bones/joints: Mild multilevel degenerative changes throughout the spine. No acute fracture or destructive bone lesion is seen. No dislocation. Soft tissues: Unremarkable. Lymph nodes: Unremarkable. No enlarged lymph nodes. IMPRESSION: 1. The thoracic aorta is mildly calcified. There is a prosthetic aortic valve with 4.5 cm ectasia of the aortic root. There are calcified suture lines indicating previous surgical repair of the ascending aorta without residual aneurysm or dissection. The descending thoracic aorta is nondilated. 2. Scattered linear densities in both lung bases consistent with subsegmental atelectasis. Some component of edema and fibrosis may also be present. 3. The pulmonary arterial tree is well opacified with contrast. No pulmonary emboli are identified. Electronically signed by: Slick Cain MD 12/30/24 21:44 PM Brain MRI 12/30/24 22:37 EXAM: MR brain seizure wo/w con CLINICAL HISTORY: unresponsive, rule out CVA TECHNIQUE: Multisequential and multiplanar images of the brain were submitted for review without and with contrast. COMPARISON: CT, 07/11/2024 16:12:00 [employer] FINDINGS: Few small T2/FLAIR hyperintensities with DWI restriction seen in left cerebellum. Generalized parenchymal atrophy is appreciated. Scattered foci of increased T2/FLAIR signal abnormality are identified within the bilateral periventricular and subcortical white matter, and are most commonly associated with chronic small vessel ischemic disease. No focal parenchymal lesions are seen. No intracranial hemorrhage, mass effect, midline shift, extra-axial collection, or hydrocephalus is identified. Ventricles, sulci, and basal cisterns are symmetric and normal in size and configuration. Midline structures including the pituitary gland, corpus callosum, pineal region, and brainstem are unremarkable. No evidence of any enhancing mass or abnormal enhancement seen. The craniovertebral junction is within normal limits. No calvarial abnormalities are identified. The paranasal sinuses and mastoid air cells are clear. Orbital structures are unremarkable. Appropriate flow voids are present in the visualized intracranial vessels. IMPRESSION: 1. 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 New finding 2. 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 Electronically signed by Steve Cody 12-31-2024 03:04 AM Lumbar Spine MRI 01/01/25 12:10 Lumbar spine MRI without IV contrast History: History of lumbar infection Comparison: MRI from September 17, 2024 Technique: Sagittal T1-weighted, sagittal STIR, 3D volumetric axial and sagittal reconstructed T2-weighted images of the lumbar spine were obtained without intravenous contrast. Findings: There are 5 lumbar-type vertebrae assumed for the purposes of this dictation. The tip of the conus medullaris is at L1. Normal lumbar vertebral alignment. There is multilevel degenerative disc height loss, which is similar to prior, and overall moderate at the T12-L1, L1-L2, L4-L5, and L5-S1 levels. There may be mild disc height loss at L2-L3 and L3-L4. Significant interval decrease in the signal abnormality at the T12-L1 endplates, with both decreased size as well as signal intensity from prior. There continues to be subtle low T1 signal abnormality, especially the inferior T12 endplate. There are a few tiny foci of high signal intensity within the disc space, otherwise the diffuse high signal abnormality on prior is resolved. There is no abnormality in the spinal canal at this level. Similar-appearing multilevel degenerative changes, including small disc bulges, facet arthropathy and ligamentum flavum thickening. There is again moderate right and severe left neuroforaminal narrowing at L3-4, severe right and moderate to severe left neuroforaminal narrowing at L4-5, and moderate to severe bilateral neuroforaminal narrowing at L5-S1. Paraspinous tissues are within normal limits. Note: The following findings are common in the absence of low back pain and while we report their presence, they must be interpreted with caution and in the context of the clinical situation. (Reference -Jarvik et al, Spine 2001) Findings (prevalence in patients without low back pain) Disc degeneration (decreased T2 signal, height loss, bulge) (91%) Disc T2 - signal loss (83%) Disc height loss (56%) Disc bulge (64%) Disc protrusion (32%) Annular tear (38%). Impression: Significant interval decrease in signal abnormality at the T12-L1 level from prior, which may represent resolved or resolving osteomyelitis/discitis. Some residual high STIR signal change at this level suggest some mild ongoing inflammation. Electronically signed by Felix Pal 01-01-2025 2:25 PM Medications Administered Current Inpatient Medications Aspirin (Aspirin 81 Mg Ectab) 81 mg PO QAM [facility] Stop: 01/30/25 08:59 Last Admin: 01/05/25 09:09 Dose: 81 mg Miguel Syrup (Miguel Syrup 5 Ml Udp) 5 ml PO DAILY [facility] Stop: 01/13/25 15:59 Last Admin: 01/05/25 09:09 Dose: 5 ml Meropenem 500 mg/ Syringe 10 mls @ 2 mls/min IV Q8H [facility]; Protocol Stop: 01/13/25 14:59 Last Admin: 01/05/25 06:05 Dose: 2 mls/min Daptomycin 700 mg/ Syringe 14 mls @ 7 mls/min IV Q24H [facility]; Protocol Stop: 01/17/25 20:59 Last Admin: 01/04/25 20:20 Dose: 7 mls/min Acetaminophen (Ofirmev) 1,000 mg in 100 mls @ 400 mls/hr IV Q8H [facility] Stop: 01/07/25 19:59 Last Infusion: 01/05/25 04:12 Dose: Infused Lidocaine (Lidocaine 5% 1 Patch) 1 patch TD QAM [facility] Stop: 02/04/25 08:59 Last Admin: 01/05/25 09:09 Dose: 1 patch Lorazepam (Lorazepam 2 Mg/1 Ml Vial) 0.5 mg IV Q6H PRN PRN Reason: Anxiety/Agitation Stop: 02/01/25 14:43 Last Admin: 01/02/25 14:56 Dose: 0.5 mg Miscellaneous (Remove Lidoderm Patch) 1 each N/A DAILY@2100 [facility] Stop: 02/04/25 20:59 Ondansetron HCl (Ondansetron Inj 2 Mg/Ml 2 Ml Vial) 4 mg IV Q6H PRN PRN Reason: Nausea Stop: 01/30/25 00:21 Pantoprazole Sodium ([facility]oprazole 40 Mg Tab) [facility]: 02/01/25 08:59 Last Admin: 01/05/25 09:09 Dose: 40 mg Vancomycin HCl (Vancomycin Hcl 125 Mg/2.5ml Soln) 125 mg PO DAILY [facility] Stop: 01/13/25 15:59 Last Admin: 01/05/25 09:08 Dose: 125 mg PG Care Time/CCT Total # of Minutes Spent Total Time Spent with Patient: Total time spent is greater than 50% in coordination of care (as documented) at patient's floor/unit and/or counseling patient: Coding [place] [address] SUB INP/OBS CARE 07/03MIN Patient Type Established History Problem Focused Exam Problem Focused Medical Decision Making Low Complexity Diagnoses Palliative care by specialist Z51.5 Advance directive in chart Z78.9 POLST (Physician Orders for Life-Sustaining Treatment) Z78.9 Counseling regarding goals of care Z71.89
--- NOTE | 2025-01-05 17:47 | Billing Data ---
Date of Service January 05, 2025 Coding Level of Care Code 98084 SUB INP/OBS CARE MIN
[2025-01-05] MEDS: REMOVE LIDODERM PATCH SCH (22:19)
[2025-01-06 08:10] LABS: Hematocrit (blood only) 32.8 % (42.0-52.0); Hemoglobin 10.9 g/dl (14.0-18.0); Immature Granulocytes # (auto) 0.04 K/uL (0.01-0.20); Immature Granulocytes % (auto) 0.5 %; Mean Corpuscular Hemoglobin 29.5 pg (25.0-34.0); Mean Corpuscular Volume 88.6 fL (80.0-100.0); Platelet Count 189 K/uL (130-400); RDW Standard Deviation 53.3 fL (36.4-46.3); Red Blood Count 3.70 M/uL (4.70-6.10); White Blood Count 7.64 K/ul (4.8-10.8)
[2025-01-06 08:23] LABS: Anion Gap 5.0 (3-11); Blood Urea Nitrogen 16.0 mg/dl (6-23); Calcium 8.4 mg/dl (8.6-10.3); Carbon Dioxide 26.0 mmol/L (21-32); Chloride 103.0 mmol/L (98-107); Creatinine Clr Calc Pharmacy 97.9 ml/min; Glucose 97.0 mg/dl (70-99(Fasting)); Potassium 4.1 mmol/L (3.5-5.1); Sodium 134.0 mmol/L (136-145)
--- NOTE | 2025-01-06 08:29 | Hospitalist Progress Note ---
Date of Service January 06, 2025 Assessment & Plan (1) Acute alteration in mental status: (2) Stroke-like symptom: (3) Urinary tract infection: (4) Back pain: (5) Dementia: Plan Pt is a 84 yo M resident [facility], nonverbal, with h/o prior CVA, dementia, seizure, chronic indwelling martinez, recurrent UTIs, paroxysmal atrial tachycardia, bicuspid valve s/p aortic valve replacement/proximal aortic aneurysm repair, left hip replacement and recurrent infections. He began to have fevers along with AMS, rigors on 12/30 AM and was found to have recurrent E faecium bacteremia. 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 Family defers MOIZ and surgery - Blood cultures positive for vancomycin sensitive Enterococcus faecium. Urine is growing Pseudomonas and ESBL E coli. - Infectious disease recommended continuing Daptomycin (from 12/30) and Meropenem (from 01/03), Pip-tazo was discintinued (12/30 - 01/03). Transition to lifelong PO suppressive antibiotic - Repeat blood cultures from 01/06 still positive for gram positive cocci in chains in both tubes. - Repeat blood cultures 01/08 AM - Overall poor prognosis given recurrent bacteremia. Patient has been admitted multiple times in the past year. Bacteremia: - Enterococcus faecium isolated likely due to endocarditis - Infectious disease consultation reviewed: recommended continuing meropenem and Daptomycin. Oral vancomycin given for C. diff prophylaxis - History of lumbar discitis/osteomyelitis in October of this year with this pathogen treated with daptomycin + ampicillin from 09/16-12/13 and omadacycline starting 12/26 due to insurance difficulties - MRI spine shows decreased signal in the T12- L1 indicative of resolving OM/discitis and increased STIR signal in the same region suggestive of ongoing inflammation. Embolic stroke - MRI brain shows multiple embolic CVA noted in the left cerebellar lobe. Suspected embolic process from endocarditis. - CTA shows 30% stenosis in the right ICA, and 20% stenosis in the left ICA - Supportive care. Metabolic encephalopathy - Present on admission. - Due to CAUTI, bacteremia and acute CVA. - Supportive care Urinary tract infection: - Catheter associated. Pseudomonas and ESBL E coli isolated in the urine. - Continue meropenem - Change Martinez catheter Back pain: - History of lumbar discitis/osteomyelitis in October of this year - Repeat lumbar MRI negative for abscess formation. Acetaminophen for pain control. Dementia: - Severe. Supportive measures Dispo: med surg DVT prophylaxis: Diet: regular Code: DNR/DNI Admission and Anticipated Discharge Date Admission Date: December 30, 2024 Supervising Physician Co-Signing Physician Notes I personally examined the patient and verified all brandon points of history and exam, discussed case, and agree with decision making with Dr Arce and Marybel Stout MS4 no meaningful HPI or ROS. pt seen twice today - first time dtr was on the phone - did not want to interrupt her so returned later - but later no family present. no HPI or ROS obtainable vitals noted frail and emaciated but no acute distress or appearance of discomfort. breathing unlabored enterococcus bacteremia/endocarditis - ongoing abx management, await clearance on cx, most recent still (+) frailty/dementia/decline - discussing end of life decision making with dtr extensively, discussing guideposts to help her and her mom think through different facets of the decision making process, offered empathy and support. otherwise as above. continue inpatient/IV for now since blood cultures (not surprisingly) are still (+); ongiong discussions with family - however, did not have anything new to add today given current "narrow focus" is awaiting clearance of bacteremia Subjective Patient is a 84 yo M who is nonverbal, with h/o prior CVA, dementia, seizure, chronic indwelling martinez, recurrent UTIs, paroxysmal atrial tachycardia, bicuspid valve s/p aortic valve replacement/proximal aortic aneurysm repair 2013, left hip replacement, HTN, prior C. diff infection, admission 09/12-09/23/24 for VRE faecium bacteremia (T12-L1 discitis/OM) on dapto/ampicillin. He was readmitted 10/26-11/09/24 with recurrent E faecium bacteremia while on dapto/ampicillin, acute hypoxic respiratory failure, and parainfluenza. He began to have fevers, AMS, rigors on 12/30, so he presented to the ED, and was found to have recurrent E faecium bacteremia. No speech, eyes closed for the entirety of the conversation. Physical Exam Physical Exam: General: Asleep, not verbal. in NAD CV: regular r/r, normal S1, aortic stenosis murmur best heard on the right sternal border Lungs: normal RR, no increase WOB, CTA b/l Abdomen: normal BS, nontender to palpation Neuro: Left lower facial droop, only able to wiggle left foot, movement in the right and left UE intact. Psych: Flat and disoriented due to disorientation due to dementia Results & Data Results & Data Vital Signs (Past 12 Hours) Vital Signs Temp Pulse Pulse Resp BP Pulse Ox O2 Del Method 01/06/25 07:51 36.7 C 84 23 126/85 94 Room Air 01/06/25 03:22 36.6 C 85 28 H 111/81 93 Room Air 01/06/25 00:00 36.6 C 84 24 125/83 96 Room Air 01/05/25 21:46 84 Resident Activity Tracking Resident Involvement: Resident Care Provided Care Provided: Adult Hospital Medicine (5) Dementia Dementia behavioral or psychological symptom: unspecified whether behavioral, psychotic, or mood disturbance or anxiety Dementia severity: unspecified severity Dementia type: unspecified type Qualified Code(s): F03.90 - Unspecified dementia, unspecified severity, without behavioral disturbance, psychotic disturbance, mood disturbance, and anxiety
--- NOTE | 2025-01-06 10:14 | Infectious Disease Progress Nt ---
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 diff Micro: 01/06 BCx x2: pending 01/04 BCx x2: GPCs in chains in 2/4 bottles 01/03 BCx x2: E faecium in 3/4 bottles 12/30 UCx: Pseudomonas (mares-S), ESBL E coli (R cipro, levo. S erta, vicky, TMP/SMX) 12/30 BCx x2: E faecium in 4/4 bottles (S dapto, linezolid, vanc MARTA 0.25) 11/02 BCx x2: NG 10/28 BCx x2: E faecium in 1/4 bottles 10/27 Catheter tip cx: NG 10/26 UCx: Pseudomonas, Natacha 10/26 BCx x2: E faecium in 4/4 bottles (S dapto MARTA 4, vanc MARTA 0.25, linezolid MARTA 1. R ampicillin. Also R to doxy, levo per conversation with micro lab) 09/15 BCx x2: E faecium in 3/4 bottles (S dapto MARTA 2, vanc MARTA 0.5. R ampicillin) 09/14 BCx x1: VRE in 2/2 bottles 09/13 BCx x2: VRE in 4/4 bottles 09/12 BCx x2: VRE in 4/ bottles (S dapto MARTA 4. R vanc MARTA >16, ampicillin) Abx: Dapto 12/30 - present Meropenem 01/03 - present Pip-tazo 12/30 - 01/03 84 yo M resident of [facility], nonverbal, with h/o prior CVA, dementia, seizure, chronic indwelling martinez, recurrent UTIs, paroxysmal atrial tachycardia, bicuspid valve s/p aortic valve replacement/proximal aortic aneurysm repair 2013, left hip replacement in 2022, HTN, prior C. diff infection 07/2023 with recurrence 08/2023, admission 09/12-09/23/24 with back pain with progressive bl LE weakness x few weeks f/w VRE faecium bacteremia (T12-L1 discitis/OM, suspected PVE since MOIZ deferred, TTE neg) on dapto/ampicillin x 6wks (anticipated end 10/27). He was readmitted 10/26-11/09/24 with recurrent E faecium bacteremia while on dapto/ampicillin (10/26, 10/28), acute hypoxic respiratory failure, parainfluenza. During that admission, PICC was removed and catheter tip cx negative. MRI C/T/L spine without new areas of infection. TTE without obvious endocarditis, but severity of mitral regurg appeared to be increased compared to prior. MOIZ deferred given GOC and ineligibility for surgery. CTA chest was performed 11/02 to assess aortic graft material for infection--per radiologist, for ideal assessment, would need to time the contrast differently, but no signs of graft infection on that CT. PICC line was replaced and he was discharged on another 6 week course of daptomycin and ampicillin through 12/13/24, with plan to switch to lifelong supppressive PO antibiotic subsequently. He was subsequently seen at [facility] for ID follow-up with plan to switch to omadacycline for PO suppression after completing IV antibiotic course. Per pt's daughter, pt was looking the best she has seen him on 12/14--sitting up straight in his wheelchair, eating on his own, without back pain. Unfortunately, there were delays with insurance approval, and he was not started on omadacycline until 12/26. He was therefore off antibiotics from 12/14-12/25. During this time, he started getting wo rse, and by 12/25, he was slumped over, not as engaged, with severe back pain again. He began to have fevers along with AMS, rigors on 24 AM, so he presented to the ED, and was found to have recurrent E faecium bacteremia. On presentation, pt was afebrile, hemodynamically stable, RR 10. Labs showed WBC 9.51, normal lactate, AST 70, AST 35, alk phos 109. UA with >50 WBCs. CTAP with contrast showed a mild constipation. CTA chest with no PE, prosthetic aortic valve, previous surgical repair of ascending aorta without residual aneurysm or dissection. MRI brain with few small acute infarcts in L cerebellum. MRI L spine without contrast showed significant interval decrease in signal abnormality at T12-L1 level from prior, which may represent resolved or resolving osteomyelitis/discitis, some residual high STIR signal change at this level suggests some mild ongoing inflammation. Pt was started on daptomycin and pip- tazo. BCx grew E faecium. UCx grew Pseudomonas and ESBL E coli. TTE unable to exclude vegetation involving atrial side of anterior leaflet of mitral valve or aortomitral curtain. Pt's family did not want to pursue MOIZ or surgical intervention if endocarditis was seen. Cardiology also feels pt would not be a good surgical candidate, so there was no clear benefit for MOIZ. Discussion: Pt with recurrent E faecium bacteremia after being on dapto and ampicillin from 09/16-12/13 (>12 weeks). Plan had been to transition to a suppressive PO antibiotic, but unfortunately due to delays in insurance approval, pt was not started on omadacycline until 12/26. Pt with AVR and proximal aortic aneurysm repair, which may be sites of persistent infection. TTE raises continued concern for mitral valve endocarditis. Pt also with new small infarcts in cerebellum, c ould be embolic. Note that pt initially had VRE bacteremia 09/12-09/14, then vanc-sensitive E faecium bacteremia 09/15, 10/26, 10/28, 12/30. There may be different E faecium subpopulations? Also uncertain whether we can trust the vanc susceptibility. Will treat with daptomycin. Also currently on meropenem to cover Pseudomonas and ESBL E coli in the urine (uncertain significance), but will plan to transition this to ampicillin soon for synergy. Pt now with persistent bacteremia from 12/30, 01/03, 01/04. Family's goal is to treat with another course of IV antibiotics with subsequent transition to PO suppression. Recommendations: - Continue meropenem for Pseudomonas and ESBL E coli in the urine culture, although uncertain significance and may represent colonizers - Recommend martinez exchange if it has not already been done this admission - Continue daptomycin 700 mg IV q24h given persistent complicated infection. Confirmed dosage with ID pharmacist. Baseline CK 50 on 01/03. Next CK check ordered for 01/10. - Follow-up repeat blood cultures from 01/06. - Anticipate another 6 week course of IV antibiotics (likely daptomycin and ampicillin) via PICC, followed by transition to lifelong PO suppressive antibiotic. - Continue C diff prophylaxis while on systemic antibiotics - Will need follow-up with ID at [facility] Will continue to follow Admission and Anticipated Discharge Date Admission Date: December 30, 2024 Subjective This patient recommendation is based on a telemedicine consult request which was completed asynchronously through chart review and information provided by the primary physician. The patient was not seen or examined today. The evaluation is consultative in nature and all patient care and treatment decisions can either be accepted or rejected by the patient's primary hospital-based treating physician using their own independent medical judgment for their patient. Time Spent Reviewing Chart: 11 - 20 minutes 01/04 BCx remain positive Results & Data Vital Signs (Past 12 Hours) Vital Signs Temp Pulse Resp BP Pulse Ox O2 Del Method 01/06/25 07:51 36.7 C 84 23 126/85 94 Room Air 01/06/25 03:22 36.6 C 85 28 H 111/81 93 Room Air 01/06/25 00:00 36.6 C 84 24 125/83 96 Room Air Laboratory Results Short CBC 01/06/25 Range/Units 07:46 WBC 7.64 (4.8-10.8) K/ul Hgb 10.9 L (14.0-18.0) g/dl Hct 32.8 L (42.0-52.0) % Plt Count 189 (130-400) K/uL BMP 01/06/25 07:46 Sodium 134 L Potassium 4.1 Chloride 103 Carbon Dioxide 26 BUN 16 Creatinine 0.54 L Glucose 97 Calcium 8.4 L Medications Administered Current Inpatient Medications Aspirin (Aspirin 81 Mg Ectab) 81 mg PO QAM BRENDA Stop: 01/30/25 08:59 Last Admin: 01/06/25 09:12 Dose: 81 mg Miguel Syrup (Miguel Syrup 5 Ml Udp) 5 ml PO DAILY BRENDA Stop: 01/13/25 15:59 Last Admin: 01/06/25 09:12 Dose: 5 ml Meropenem 500 mg/ Syringe 10 mls @ 2 mls/min IV Q8H BRENDA; Protocol Stop: 01/13/25 14:59 Last Admin: 01/06/25 06:22 Dose: 2 mls/min Daptomycin 700 mg/ Syringe 14 mls @ 7 mls/min IV Q24H [facility]; Protocol Stop: 01/17/25 20:59 Last Admin: 01/05/25 21:16 Dose: 7 mls/min Acetaminophen (Ofirmev) 1,000 mg in 100 mls @ 400 mls/hr IV Q8H [facility] Stop: 01/07/25 19:59 Last Infusion: 01/06/25 04:02 Dose: Infused Lidocaine (Lidocaine 5% 1 Patch) 1 patch TD QAM [facility] Stop: 02/04/25 08:59 Last Admin: 01/06/25 09:17 Dose: 1 patch Lorazepam (Lorazepam 2 Mg/1 Ml Vial) 0.5 mg IV Q6H PRN PRN Reason: Anxiety/Agitation Stop: 02/01/25 14:43 Last Admin: 01/02/25 14:56 Dose: 0.5 mg Miscellaneous (Remove Lidoderm Patch) 1 each N/A DAILY@2100 [facility] Stop: 02/04/25 20:59 Last Admin: 01/05/25 22:19 Dose: 1 each Ondansetron HCl (Ondansetron Inj 2 Mg/Ml 2 Ml Vial) 4 mg IV Q6H PRN PRN Reason: Nausea Stop: 01/30/25 00:21 Pantoprazole Sodium (Pantoprazole 40 Mg Tab) 40 mg PO QAM [facility] Stop: 02/01/25 08:59 Last Admin: 01/06/25 09:12 Dose: 40 mg Vancomycin HCl (Vancomycin Hcl 125 Mg/2.5ml Soln) 125 mg PO DAILY [facility] Stop: 01/13/25 15:59 Last Admin: 01/06/25 09:11 Dose: 125 mg
--- NOTE | 2025-01-06 12:38 | Billing Data ---
Date of Service January 06, 2025 Coding Level of Care Code 87334 SUB INP/OBS CARE MIN
[2025-01-07 06:21] LABS: A calco-baum cmplx NotReported Not Detected (NotDetected); Bact fragilis Not Reported Not Detected (NotDetected); Blood Culture Id Panel See PCR Comment (NotDetected); C auris Not Reported Not Detected (NotDetected); Calbicans Not Reported Not Detected (NotDetected); Candida glabrata Not Reported Not Detected (NotDetected); Candida krusei Not Reported Not Detected (NotDetected); Cneoformans/gatti Not Reported Not Detected (NotDetected); Cparapsilosis Not Reported Not Detected (NotDetected); Ctropicalis Not Reported Not Detected (NotDetected); E cloacae compx Not Reported Not Detected (NotDetected); Efaecalis Not Reported Not Detected (NotDetected); Efaecium Not Reported DETECTED (NotDetected); Enterobacterales Not Reported Not Detected (NotDetected); Escherichia coli Not Reported Not Detected (NotDetected); H influenzae Not Reported Not Detected (NotDetected); K aerogenes Not Reported Not Detected (NotDetected); Koxytoca Not Reported Not Detected (NotDetected); Kpneumoniae grp Not Reported Not Detected (NotDetected); Lmonocyt Not Reported Not Detected (NotDetected); N meningitidis Not Reported Not Detected (NotDetected); P aeruginosa Not Reported Not Detected (NotDetected); Proteus spp Not Reported Not Detected (NotDetected); Salmonella spp Not Reported Not Detected (NotDetected); Staph lugdunensis Not Reported Not Detected (NotDetected); Staph spp. Not Reported Not Detected (NotDetected); Staphaureus Not Reported Not Detected (NotDetected); Staphepi Not Reported Not Detected (NotDetected); Stenmaltophilia Not Reported Not Detected (NotDetected); Strep agal(GrpB) Not Reported Not Detected (NotDetected); Strep pneum Not Reported Not Detected (NotDetected); Strep pyog (GrpA) Not Reported Not Detected (NotDetected); Strep spp Not Reported Not Detected (NotDetected); VanAB Resistant Gene VRE Not Detected (NotDetected)
[2025-01-07 06:51] LABS: Enterococcus faecium DETECTED (NotDetected)
--- NOTE | 2025-01-07 08:31 | Infectious Disease Progress Nt ---
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 diff Micro: 01/06 BCx x2: GPCs in chains in 2/ bottles 01/04 BCx x2: E faecium in 4/ bottles 01/03 BCx x2: E faecium in 4/4 bottles 12/30 UCx: Pseudomonas (mares-S), ESBL E coli (R cipro, levo. S erta, vicky, TMP/SMX) 12/30 BCx x2: E faecium in 4/4 bottles (S dapto, linezolid, vanc MARTA 0.25) 11/02 BCx x2: NG 10/28 BCx x2: E faecium in 1/ bottles 10/27 Catheter tip cx: NG 10/26 UCx: Pseudomonas, Natacha 10/26 BCx x2: E faecium in 4/4 bottles (S dapto MARTA 4, vanc MARTA 0.25, linezolid MARTA 1. R ampicillin. Also R to doxy, levo per conversation with micro lab) 09/15 BCx x2: E faecium in 3/4 bottles (S dapto MARTA 2, vanc MARTA 0.5. R ampicillin) 09/14 BCx x1: VRE in 2/2 bottles 09/13 BCx x2: VRE in 4/4 bottles 09/12 BCx x2: VRE in 4/4 bottles (S dapto MARTA 4. R vanc MARTA >16, ampicillin) Abx: Dapto 12/30 - present Meropenem 01/03 - present Pip-tazo 12/30 - 01/03 84 yo M resident of [facility], nonverbal, with h/o prior CVA, dementia, seizure, chronic indwelling martinez, recurrent UTIs, paroxysmal atrial tachycardia, bicuspid valve s/p aortic valve replacement/proximal aortic aneurysm repair 2013, left hip replacement in 2022, HTN, prior C. diff infection 07/2023 with recurrence 08/2023, admission 09/12-09/23/24 with back pain with progressive bl LE weakness x few weeks f/w VRE faecium bacteremia (T12-L1 discitis/OM, suspected PVE since MOIZ deferred, TTE neg) on dapto/ampicillin x 6wks (anticipated end 10/27). He was readmitted 10/26-11/09/24 with recurrent E faecium bacteremia while on dapto/ampicillin (10/26, 10/28), acute hypoxic respiratory failure, parainfluenza. During that admission, PICC was removed and catheter tip cx negative. MRI C/T/L spine without new areas of infection. TTE without obvious endocarditis, but severity of mitral regurg appeared to be increased compared to prior. MOIZ deferred given GOC and ineligibility for surgery. CTA chest was performed 11/02 to assess aortic graft material for infection--per radiologist, for ideal assessment, would need to time the contrast differently, but no signs of graft infection on that CT. PICC line was replaced and he was discharged on another 6 week course of daptomycin and ampicillin through 12/13/24, with plan to switch to lifelong supppressive PO antibiotic subsequently. He was subsequently seen at [facility] for ID follow-up with plan to switch to omadacycline for PO suppression after completing IV antibiotic course. Per pt's daughter, pt was looking the best she has seen him on 12/14--sitting up straight in his wheelchair, eating on his own, without back pain. Unfortunately, there were delays with insurance approval, and he was not started on omadacycline until 12/26. He was therefore off antibiotics from 12/14-12/25. During this time, he started getting worse, and by 12/25, he was slumped over, not as engaged, with severe back pain again. He began to have fevers along with AMS, rigors on 24 AM, so he p resented to the ED, and was found to have recurrent E faecium bacteremia. On presentation, pt was afebrile, hemodynamically stable, RR 10. Labs showed WBC 9.51, normal lactate, AST 70, AST 35, alk phos 109. UA with >50 WBCs. CTAP with contrast showed a mild constipation. CTA chest with no PE, prosthetic aortic valve, previous surgical repair of ascending aorta without residual aneurysm or dissection. MRI brain with few small acute infarcts in L cerebellum. MRI L spine without contrast showed significant interval decrease in signal abnormality at T12-L1 level from prior, which may represent resolved or resolving osteomyelitis/discitis, some residual high STIR signal change at this level suggests some mild ongoing inflammation. Pt was started on daptomycin and pip- tazo. BCx grew E faecium. UCx grew Pseudomonas and ESBL E coli. Martinez changed 01/04. TTE with bioprosthetic AV with elevated transvalvular gradient, unable to exclude vegetation involving atrial side of anterior leaflet of mitral valve or aortomitral curtain. Pt's family did not want to pursue MOIZ or surgical intervention if endocarditis was seen. Cardiology also feels pt would not be a good surgical candidate, so there was no clear benefit for MOIZ. Discussion: Pt with recurrent E faecium bacteremia after being on dapto and ampicillin from 09/16-12/13 (>12 weeks). Plan had been to transition to a suppressive PO antibiotic, but unfortunately due to delays in insurance approval, pt was not started on omadacycline until 12/26. Pt with AVR and proximal aortic aneurysm repair, which may be sites of persistent infection. TTE raises continued concern for endocarditis. MRI brain also with new small infarcts in cerebellum, could be embolic. MRI L spine with improvement in T12-L1 findings from prior. Note that pt initially had VRE bacteremia 09/12-09/14, then vanc-sensitive E faecium bacteremia 09/15, 10/26, 10/28, 12/30. There may be different E faecium subpopulations? Also uncertain whether we can trust the vanc susceptibility. Will treat with daptomycin. Also currently on meropenem to cover Pseudomonas and ESBL E coli in the urine (uncertain significance), but will plan to transition this to ampicillin soon for continued synergy. Pt now with persistent bacteremia from 12/30-01/06. Family's goal is to treat with another course of IV antibiotics with subsequent transition to PO suppression, until ready for hospice. Concerning that blood cultures remain positive on 01/06, indicating >1 week of persistent bacteremia. Recommendations: - Continue meropenem for Pseudomonas and ESBL E coli in the urine culture, although uncertain significance and may represent colonizers. Likely complete 7 day course and switch to ampicillin for continued synergy on 01/10 - Continue daptomycin 700 mg IV q24h given persistent complicated infection. Confirmed dosage with ID pharmacist. Baseline CK 50 on 01/03. Next CK check ordered for 01/10. - Ordered repeat blood cultures for 01/08 - Anticipate another 6 week course of IV antibiotics (likely daptomycin and ampicillin) via PICC from date of blood culture clearance, followed by transition to lifelong PO suppressive antibiotic. - Omadacycline sensitivities requested on 01/03 blood culture. Sent out to [facility] - Continue C diff prophylaxis while on systemic antibiotics - Will need follow-up with ID at [facility] Please note that ID does not round or write notes over the weekend. If questions or concerns arise, please contact the Infectious Disease Call Center and ask to speak with the covering ID physician. Dr. Jamaica Noriega will take over on Friday. Admission and Anticipated Discharge Date Admission Date: December 30, 2024 Subjective This patient recommendation is based on a telemedicine consult request which was completed asynchronously through chart review and information provided by the [facility] physician. The patient was not seen or examined today. The evaluation is consultative in nature and all patient care and treatment decisions can either be accepted or rejected by the patient's primary hospital-based treating physician using their own independent medical judgment for their patient. Time Spent Reviewing Chart: 11 - 20 minutes 01/06 BCx remain positive Results & Data Vital Signs (Past 12 Hours) Vital Signs Temp Pulse Pulse Resp BP Pulse Ox O2 Del Method 01/07/25 07:42 36.5 C 91 H 28 H 128/84 95 Room Air 01/07/25 02:44 36.8 C 98 H 19 125/83 91 Room Air 01/07/25 00:00 36.5 C 85 19 138/97 99 Room Air 01/06/25 21:46 82 Medications Administered Current Inpatient Medications Aspirin (Aspirin 81 Mg Ectab) 81 mg PO QAM BRENDA Stop: 01/30/25 08:59 Last Admin: 01/07/25 08:21 Dose: 81 mg Miguel Syrup (Miguel Syrup 5 Ml Udp) 5 ml PO DAILY BRENDA Stop: 01/13/25 15:59 Last Admin: 01/06/25 09:12 Dose: 5 ml Meropenem 500 mg/ Syringe 10 mls @ 2 mls/min IV Q8H [facility]; Protocol Stop: 01/13/25 14:59 Last Admin: 01/07/25 08:22 Dose: 2 mls/min Daptomycin 700 mg/ Syringe 14 mls @ 7 mls/min IV Q24H [facility]; Protocol Stop: 01/17/25 20:59 Last Admin: 01/06/25 21:27 Dose: 7 mls/min Acetaminophen (Ofirmev) 1,000 mg in 100 mls @ 400 mls/hr IV Q8H [facility] Stop: 01/07/25 19:59 Last Infusion: 01/07/25 04:16 Dose: Infused Lidocaine (Lidocaine 5% 1 Patch) 1 patch TD [facility] Stop: 02/04/25 08:59 Last Admin: 01/07/25 08:22 Dose: 1 patch Lorazepam (Lorazepam 2 Mg/1 Ml Vial) 0.5 mg IV Q6H PRN PRN Reason: Anxiety/Agitation Stop: 02/01/25 14:43 Last Admin: 01/02/25 14:56 Dose: 0.5 mg Miscellaneous (Remove Lidoderm Patch) 1 each N/A DAILY@2100 [facility] Stop: 02/04/25 20:59 Last Admin: 01/06/25 22:47 Dose: 1 each Ondansetron HCl (Ondansetron Inj 2 Mg/Ml 2 Ml Vial) 4 mg IV Q6H PRN PRN Reason: Nausea Stop: 01/30/25 00:21 Pantoprazole Sodium (Pantoprazole 40 Mg Tab) [facility] Stop: 02/01/25 08:59 Last Admin: 01/07/25 08:21 Dose: 40 mg Vancomycin HCl (Vancomycin Hcl 125 Mg/2.5ml Soln) 125 mg PO DAILY [facility] Stop: 01/13/25 15:59 Last Admin: 01/06/25 09:11 Dose: 125 mg
--- NOTE | 2025-01-07 16:49 | Billing Data ---
Date of Service January 07, 2025 Coding Level of Care Code 40574 SUB INP/OBS CARE
--- NOTE | 2025-01-07 16:51 | Billing Data ---
Date of Service January 07, 2025 Coding Level of Care Code 14518 SUB INP/OBS CARE MIN
[2025-01-07] MEDS: CEFTAROLINE FOSAMIL ACETATE 600 MG in SODIUM CHLORIDE 0.9% 250 ML IV SCH (18:04)
[2025-01-07] MEDS: DAPTOmycin 800 MG in SYRINGE 0 ML IV SCH (22:16)
--- NOTE | 2025-01-08 06:44 | Hospitalist Progress Note ---
Date of Service January 08, 2025 Assessment & Plan (1) Acute alteration in mental status: (2) Stroke-like symptom: (3) Urinary tract infection: (4) Back pain: (5) Dementia: Plan Pt is a 84 yo M resident [facility], nonverbal, with h/o prior CVA, severe dementia, seizure, chronic indwelling martinez, recurrent UTIs, paroxysmal atrial tachycardia, bicuspid valve s/p aortic valve replacement/proximal aortic aneurysm repair, left hip replacement and recurrent infections. He began to have fevers along with AMS, rigors on 12/30 AM and was found to have recurrent E faecium bacteremia. Requires continued inpatient monitoring and management with IV abx. Suspected bacterial endocarditis: - TTE reveals a suspected bioprosthetic aortic valve vegetation with possible mitral valve involvement. Family defers MOIZ and surgery - Blood cultures positive for vancomycin sensitive Enterococcus faecium. Urine is growing Pseudomonas and ESBL E coli. - Repeat blood cultures from 01/04 still positive for gram positive cocci in chains in both tubes, grew E. faecium Blood cultures from 01/06/25: Gram+ cocci in chains, pending speciation Switched from meropenem to ceftaroline 600 mg IV q8h per ID recommendation, continuing Daptomycin from 12/30/24 Continue oral vancomycin for C. diff prophylaxis - Palliative care input appreciated Bacteremia: - Enterococcus faecium isolated likely due to endocarditis As above, continue ceftaroline 600 mg IV q8h and Daptomycin from 12/30/24 per ID recommendation Oral vancomycin given for C. diff prophylaxis - History of lumbar discitis/osteomyelitis in October of this year with this pathogen treated with daptomycin + ampicillin from 09/16-12/13 and omadacycline starting 12/26 due to insurance difficulties - MRI spine shows decreased signal in the T12- L1 indicative of resolving OM/discitis and increased STIR signal in the same region suggestive of ongoing inflammation Embolic stroke - MRI brain shows multiple embolic CVA noted in the left cerebellar lobe. Suspec natalie embolic process from endocarditis. - CTA shows 30% stenosis in the right ICA, and 20% stenosis in the left ICA - Supportive care Metabolic encephalopathy - Present on admission. - Due to CAUTI, bacteremia and acute CVA. - Supportive care Ordered q4 oral care due to mouth being apparently open when sleeping / possibly at baseline Continue thickened liquid/pureed diet with aspiration precautions: only upright feeds, HOB no lower than 30deg when not eating Urinary tract infection: - Catheter associated. Pseudomonas and ESBL E coli isolated in the urine. - Continue abx as above - Changed Martinez catheter 01/04/25 Back pain, chronic: - History of lumbar discitis/osteomyelitis in October of this year - Repeat lumbar MRI negative for abscess formation. Acetaminophen for pain control. Dementia, chronic: - Severe, continue supportive care Dispo: med surg DVT prophylaxis: SCDs ordered Diet: regular mildly thick / pureed Code: DNR/DNI Admission and Anticipated Discharge Date Admission Date: December 30, 2024 Supervising Physician Co-Signing Physician Notes I personally examined the patient and verified all brandon points of history and exam, discussed case, and agree with decision making with Dr Moore no meaningful HPI or ROS. present, updated and offered empathy and support. vitals noted frail and emaciated but no acute distress or appearance of discomfort. breathing unlabored enterococcus bacteremia/endocarditis - ongoing abx management, await clearance on cx, most recent still (+), today's just drawn. appreciate ID change of abx to hopefully hasten clearance. main question for duration will be in line [facility] goals of care - ?only treat IV until clearance and then PO suppression (ie treat w abx for "comfort" since active bacteremia usually comes w flu like sx) vs treat for full duration and then PO suppression (if goals of care evolve to more "the next insult" may be what precipitates a more comfort only plan of care) frailty/dementia/decline - discussing end of life decision making with dtr extensively, discussing guideposts to help her and her mom think through different facets of the decision making process, offered empathy and support. otherwise as above. continue inpatient/IV for now since blood cultures (not surprisingly) are still (+); ongoing discussions with family - see above Subjective Keith was seen and evaluated at bedside this AM, appearing to be resting in no acute distress, mouth open. Unable to respond to any questioning, but intermittently moving extremities and tracking with eyes. No moaning, coughing/choking, or noisy breathing observed. Physical Exam Physical Exam: General: awake and alert, not verbal. In no apparent distress HEENT: 2cm white-yellow substance seen in back of mouth, was able to be retrieved by tongue depressor; EOM intact, anicteric sclerae, PERRL b/l CV: RRR, systolic murmur appreciated, otherwise normal s1/s2 Resp: clear to auscultation b/l, no increase WOB, no w/r/R GI/Abdomen: normo-hyperactive BS, abdomen nontender to palpation MSK: no edema, 5/5 kiln burner helper in b/l UE, wiggles b/l LE though more pronounced in LLE Neuro: mild left lower facial droop observed, intermittently moves all ext remities but LLE>RLE Psych: unable to gauge mood-affect congruence, intermittent eye contact Results & Data Results & Data Vital Signs (Past 12 Hours) Vital Signs Temp Pulse Pulse Resp BP Pulse Ox O2 Del Method 01/08/25 03:40 36.9 C 111 H 18 130/97 96 Room Air 01/08/25 00:31 Room Air 01/07/25 22:59 36.5 C 97 H 18 130/99 95 Room Air 01/07/25 21:44 101 H 01/07/25 19:33 36.8 C 95 H 22 120/94 96 Room Air Resident Activity Tracking Resident Involvement: Resident Care Provided Care Provided: Adult Hospital Medicine (5) Dementia Dementia behavioral or psychological symptom: unspecified whether behavioral, psychotic, or mood disturbance or anxiety Dementia severity: unspecified severity Dementia type: unspecified type Qualified Code(s): F03.90 - Unspecified dementia, unspecified severity, without behavioral disturbance, psychotic disturbance, mood disturbance, and anxiety
[2025-01-08 06:50] LABS: Hematocrit (blood only) 32.6 % (42.0-52.0); Hemoglobin 11.2 g/dl (14.0-18.0); Immature Granulocytes # (auto) 0.03 K/uL (0.01-0.20); Immature Granulocytes % (auto) 0.4 %; Mean Corpuscular Hemoglobin 30.0 pg (25.0-34.0); Mean Corpuscular Volume 87.4 fL (80.0-100.0); Platelet Count 215 K/uL (130-400); RDW Standard Deviation 53.6 fL (36.4-46.3); Red Blood Count 3.73 M/uL (4.70-6.10); White Blood Count 7.94 K/ul (4.8-10.8)
[2025-01-08 07:21] LABS: Anion Gap 6.0 (3-11); Blood Urea Nitrogen 16.0 mg/dl (6-23); Calcium 8.5 mg/dl (8.6-10.3); Carbon Dioxide 25.0 mmol/L (21-32); Chloride 101.0 mmol/L (98-107); Creatinine Clr Calc Pharmacy 92.8 ml/min; Glucose 104.0 mg/dl (70-99(Fasting)); Potassium 4.1 mmol/L (3.5-5.1); Sodium 132.0 mmol/L (136-145)
--- NOTE | 2025-01-08 11:42 | Billing Data ---
Date of Service January 08, 2025 Coding Level of Care Code 99543 SUB INP/OBS CARE
--- NOTE | 2025-01-08 11:43 | Billing Data ---
Date of Service January 08, 2025 Coding Level of Care Code 47949 SUB INP/OBS CARE
--- NOTE | 2025-01-09 06:42 | Hospitalist Progress Note ---
Date of Service January 09, 2025 Assessment & Plan (1) Acute alteration in mental status: (2) Hyponatremia: (3) Stroke-like symptom: (4) Urinary tract infection: (5) Back pain: (6) Dementia: Plan Keith Lopez is a 84 yo M resident of [facility], nonverbal, with h/o prior CVA, sharla re dementia, seizure, chronic indwelling martinez, recurrent UTIs, paroxysmal atrial tachycardia, bicuspid valve s/p aortic valve replacement/proximal aortic aneurysm repair, left hip replacement and recurrent infections. He began to have fevers along with AMS, rigors on 12/30 AM and was found to have recurrent E faecium bacteremia, including in 01/06/25 blood cultures and G+ cocci in chain on 01/08/25 cx. Requires continued inpatient monitoring and management with IV abx. Suspected bacterial endocarditis Enterococcus faecium bacteremia TTE reveals a suspected bioprosthetic aortic valve vegetation with possible mitral valve involvement. Family defers MOIZ and surgery - Original blood cultures positive for Enterococcus faecium. Urine is growing Pseudomonas and ESBL E coli. - Repeat blood cultures from 01/06/25: E. faecium as well; BCx from 01/08/25 with prelim showing growth of G+ cocci in chains Continue ceftaroline 600 mg IV q8h per ID recommendation, continuing Dapt omycin from 12/30/24 Continue oral vancomycin for C. diff prophylaxis - Additional history of lumbar discitis/osteomyelitis in October of this year with this pathogen treated with daptomycin + ampicillin from 09/16-12/13 and omadacycline starting 12/26 due to insurance difficulties - MRI spine shows decreased signal in the T12- L1 indicative of resolving OM/discitis and increased STIR signal in the same region suggestive of ongoing inflammation Hyponatremia, acute 131 this AM, though no obvious change in clinical status from day prior Likely hypovolemic based on appearing clinically dry on exam as well as BUN:Cr >30 Ordered light maintenance NS at 80cc/hr BMP in AM Embolic stroke - MRI brain shows multiple embolic CVA noted in the left cerebellar lobe. Suspected embolic process from endocarditis. - CTA shows 30% stenosis in the right ICA, and 20% stenosis in the left ICA - Supportive care Metabolic encephalopathy - Present on admission. - Due to CAUTI, bacteremia and acute CVA. - Supportive care Ordered q4 oral care due to mouth being apparently open when sleeping / possibly at baseline Continue thickened liquid/pureed diet with aspiration precautions: only upright feeds, HOB no lower than 30deg when not eating Urinary tract infection: - Catheter associated. Pseudomonas and ESBL E coli isolated in the urine. - Continue abx as above - Changed Martinez catheter 01/04/25 Back pain, chronic: - History of lumbar discitis/osteomyelitis in October of this year - Repeat lumbar MRI negative for abscess formation. Acetaminophen for pain control. Dementia, chronic: - Severe, continue supportive care Dispo: med surg DVT prophylaxis: SCDs ordered Diet: regular mildly thick / pureed Code: DNR/DNI Admission and Anticipated Discharge Date Admission Date: December 30, 2024 Supervising Physician Co-Signing Physician Notes I personally examined the patient and verified all brandon points of history and exam, discussed case, and agree with decision making with Dr Moore no meaningful HPI or ROS. present, updated and offered empathy and support. helped guide through decision making. vitals noted frail and emaciated but no acute distress or appearance of discomfort. breathing unlabored enterococcus bacteremia/endocarditis - ongoing abx management, await clearance on cx, most recent still (+), today's just drawn. appreciate ID change of abx to hopefully hasten clearance. main question for duration will be in line with goals of care - ?only treat IV until clearance and then PO suppression (ie treat w abx for "comfort" since active bacteremia usually comes w flu like sx) vs treat for full duration and then PO suppression (if goals of care evolve to more "the next insult" may be what precipitates a more comfort only plan of care) - /dtr still working through this frailty/dementia/decline - discussing end of life decision making with dtr extensively, discussing guideposts to help her and her mom think through different facets of the decision making process, offered empathy and support. otherwise as above. continue inpatient/IV for now since blood cultures (not surprisingly) are still (+); ongoing discussions with family - see above Subjective Keith was seen and evaluated at bedside this AM, appearing to be resting in no acute distress, mouth open. Unable to respond to any questioning, but intermittently moving extremities and tracking with eyes. No moaning, coughing/choking, or noisy breathing observed. Physical Exam Physical Exam: General: awake and alert, not verbal. In no apparent distress HEENT: 1cm soft white substance seen adhered to posterior hard palate, was able to be retrieved by tweezers, dry oral mucus membranes; EOM intact, anicteric sclerae, PERRL b/l CV: RRR, systolic murmur appreciated, otherwise normal s1/s2 Resp: clear to auscultation b/l, no increase WOB, no w/r/R GI/Abdomen: normo-hyperactive BS, abdomen nontender to palpation MSK: no edema, some tenting observed with gentle pinch; symmetric sensitized paper tester in b/l UE, wiggles b/l LE though more pronounced in LLE Neuro: mild left lower facial droop observed, intermittently moves all extremities but LLE>RLE Psych: unable to gauge mood-affect congruence, intermittent eye contact Results & Data Results & Data Vital Signs (Past 12 Hours) Vital Signs Temp Pulse Pulse Resp BP Pulse Ox O2 Del Method 01/09/25 03:59 Room Air 01/09/25 03:46 37.2 C 100 H 18 115/75 94 Room Air 01/09/25 00:00 97 Room Air 01/08/25 23:27 36.5 C 94 H 18 131/79 95 Room Air 01/08/25 22:21 97 H 01/08/25 21:00 Room Air 01/08/25 20:00 Room Air 01/08/25 19:22 36.4 C L 93 H 18 117/78 99 Room Air Resident Activity Tracking Resident Involvement: Resident Care Provided Care Provided: Adult Hospital Medicine (6) Dementia Dementia behavioral or psychological symptom: unspecified whether behavioral, psychotic, or mood disturbance or anxiety Dementia severity: unspecified severity Dementia type: unspecified type Qualified Code(s): F03.90 - Unspecified dementia, unspecified severity, without behavioral disturbance, psychotic disturbance, mood disturbance, and anxiety
[2025-01-09 07:06] LABS: Anion Gap 7.0 (3-11); Blood Urea Nitrogen 20.0 mg/dl (6-23); Calcium 8.4 mg/dl (8.6-10.3); Carbon Dioxide 25.0 mmol/L (21-32); Chloride 99.0 mmol/L (98-107); Creatinine Clr Calc Pharmacy 97.9 ml/min; Glucose 103.0 mg/dl (70-99(Fasting)); Potassium 4.1 mmol/L (3.5-5.1); Sodium 131.0 mmol/L (136-145)
[2025-01-09] MEDS: SODIUM CHLORIDE 0.9% 1,000 ML IV SCH (10:47)
--- NOTE | 2025-01-09 13:50 | Billing Data ---
Date of Service January 09, 2025 Coding Level of Care Code 29831 SUB INP/OBS CARE
[2025-01-09] MEDS ORDERED: ACETAMINOPHEN 500 MG TAB PO PRN (18:46)
[2025-01-09] MEDS: ACETAMINOPHEN 1,000 MG/100 ML VIAL IV PRN (20:35)
[2025-01-10 06:17] LABS: Anion Gap 4.0 (3-11); Blood Urea Nitrogen 22.0 mg/dl (6-23); Calcium 8.3 mg/dl (8.6-10.3); Carbon Dioxide 27.0 mmol/L (21-32); Chloride 102.0 mmol/L (98-107); Creatine Kinase 41.0 U/L (30-223); Creatinine Clr Calc Pharmacy 84.0 ml/min; Glucose 96.0 mg/dl (70-99(Fasting)); Potassium 4.0 mmol/L (3.5-5.1); Sodium 133.0 mmol/L (136-145)
[2025-01-10 08:36] LABS: Blood Culture Id Panel See PCR Comment (NotDetected); Efaecium Not Reported DETECTED (NotDetected); Enterococcus faecium DETECTED (NotDetected)
--- NOTE | 2025-01-10 09:41 | Hospitalist Progress Note ---
Date of Service January 10, 2025 Assessment & Plan (1) Bacterial endocarditis: Plan Keith Lopez is a 84 yo M resident of [facility], nonverbal, with h/o prior CVA, severe dementia, seizure, chronic indwelling martinez, recurrent UTIs, paroxysmal atrial tachycardia, bicuspid valve s/p aortic valve replacement/proximal aortic aneurysm repair, left hip replacement and recurrent infections. He presented with AMS and fever and was found to have recurrent E faecium bacteremia, including in 01/06/25 blood cultures and G+ cocci in chain on 01/08/25 cx. Requires continued inpatient monitoring and management with IV abx. As of today, he has had persistent bacteremia (today's BC pending) despite on being on broad- spectrum abx and with a history of recurrent UTIs with suspected bacterial endocarditis. Conversations with family on goals of care are ongoing and ID is concerned with pt. being able to clear the infectious given the extensive amount of time pt. has already been on abx, in addition to new CVA, worsened mental status Will continue current plan at this time pending blood culture results that were drawn today and will discuss with ID on recs prior to discussing with family on dispo planning. #Suspected bacterial endocarditis #Enterococcus faecium bacteremia Assessment: Blood cultures on admission show growth of Enterococcus faecium. Urine is growing Pseudomonas and ESBL E coli. Prognosis appears poor due to persistent bacteremia with recurrent admission for management of infections (some with resistant organisms) and advanced dementia. Plan: - After discussion with ID and family, will re-assess GOC pending results of blood cultures (drawn this am). - Continue following ID recs of ceftaroline 600 mg IV q8h per ID recommendation, continuing Daptomycin from 12/30/24 - Continue oral vancomycin for C. diff prophylaxis given hx of C.diff infection #Hyponatremia, acute Assessment: Has had mild hyponatremia, likely secondary to hypovolemia and decreased PO intake, 133 this AM, slightly improved compared to previous values. - Ordered light maintenance NS at 80cc/hr, re-assess depending on trending labs and clinical status - Monitor am lab #Embolic stroke Assessment: MRI brain shows multiple embolic CVA noted in the left cerebellar lobe. Suspected embolic process from endocarditis. CTA shows 30% stenosis in the right ICA, and 20% stenosis in the left ICA. Plan: - Supportive care #Metabolic encephalopathy Assessment: Pt. presented with metabolic encephalopathy likely on admission given AMS and fevers leading up to ED visit. Given infectious presentation and blood cultures + UA showing signs of infection, encephalopathy likely due to CAUTI, bacteremia, and acute CVA. Plan: - Continuing abx, fluids, and CMP trending for electrolyte abnormalities/as needed repletion - Supportive care > Ordered q4 oral care due to mouth being apparently open when sleeping/possibly at baseline > Continue thickened liquid/pureed diet with aspiration precautions: only upright feeds, HOB no lower than 30deg when not eating #Urinary tract infection: Assessment: UA results showed Pseudomonas and ESBL E coli, likely catheter associated and expected given chronic hx of recurrent UTIs. Plan: - New Martinez catheter placed on 01/04/25 given bacteriuria. - Continue monitor Is and Os. - Continue abx as above. #Back pain, chronic: Assessment: pt has a hx of lumbar discitis/osteomyelitis in October of this year Plan: - Repeat lumbar MRI during hospitalization negative for abscess formation. - Continue Acetaminophen for pain control. #MSK Strain | Cramps Assessment:Was having Charley Horses/muscle cramps at bedside this AM. Could possibly be secondary due to lack of ambulation, malnutrition/dehydration, and/or due to electrolyte abnormalities. Plan: - magnesium level ordered, showed WNL - Ordered 1 g of IV mag of repletion and LRs are ongoing at 80 mL/hr - CK and K+ level WNL Admission and Anticipated Discharge Date Admission Date: December 30, 2024 Supervising Physician Co-Signing Physician Notes I personally examined the patient and verified brandon points of history and exam, discussed case, and agree with decision making and plan documented by Dr. Escobedo and Carline Hernandez MS IV. Patient currently on maximal antimicrobial fluids IV daptomycin, IV ceftaroline, and vancomycin (prophylaxis) for persistent bacteremia with likely multiple sources. Awaiting repeat Bcx. Team discussed plan with family and attempted to address GOC. Will revisit tomorrow. Subjective Seen at bedside this AM, continues to be non-verbal, but does open eyes, turn to direction of voices, and grunts in response to speaking to him. Moves all extremities and dowel pin worker person examining him. Had made an "ouch" sound, possibly referencing cramps/Charley Horse in lower extremity. Review of Systems Review of Systems: Unable to be assessed due to patient being non-verbal Physical Exam Physical Exam: General: Does not appear in acute distress. HEENT: Head is normocephalic and atraumatic. PERRLA. No cervical lymphadenopathy. CV: S1 and S2 sounds present. RRR. No murmurs, rubs, or gallops. Resp: CTA B/L. No rales, wheezing, or rhonchi. GI: Normoactive bowel sounds. No tenderness to palpation. MSK: No peripheral edema. No abnormal lesions visualized. Pads on heels in place for wound prevention. Psych: Pt. non-verbal, unable to be assessed. Results & Data Results & Data Vital Signs (Past 12 Hours) Vital Signs Temp Pulse Pulse Resp BP Pulse Ox O2 Del Method 01/10/25 08:00 36.6 C 90 22 122/74 97 Room Air 01/10/25 03:07 36.5 C 89 24 114/89 94 Room Air 01/09/25 22:47 87 (1) Bacterial endocarditis Chronicity: acute Qualified Code(s): I33.0 - Acute and subacute infective endocarditis
[2025-01-10 10:57] LABS: Magnesium 1.9 mg/dl (1.7-2.4)
[2025-01-10] MEDS: LACTATED RINGER'S 1,000 ML IV SCH (11:01)
[2025-01-10] MEDS: MAGNESIUM SULFATE / D5W 1 GM/100 ML BAG IV ONE (12:59)
--- NOTE | 2025-01-10 13:06 | Infectious Disease Progress Nt ---
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 He was readmitted 10/26-11/09/24 with recurrent E faecium bacteremia while on dapto/ampicillin (10/26, 10/28), acute hypoxic respiratory failure, parainfluenza. During that admission, PICC was removed and catheter tip cx negative. MRI C/T/L spine without new areas of infection. TTE w ithout obvious endocarditis, but severity of mitral regurg appeared to be increased compared to prior. MOIZ deferred given GOC and ineligibility for surgery. CTA chest was performed 11/02 to assess aortic graft material for infection--per radiologist, for ideal assessment, would need to time the contrast differently, but no signs of graft infection on that CT. PICC line was replaced and he was discharged on another 6 week course of daptomycin and ampicillin through 12/13/24, with plan to switch to lifelong suppressive PO antibiotic subsequently. He was subsequently seen at [facility] for ID follow-up with plan to switch to omadacycline for PO suppression after completing IV antibiotic course. Per pt's daughter, pt was looking the best she has seen him on 12/14--sitting up straight in his wheelchair, eating on his own, without back pain. Unfortunately, there were delays with insurance approval, and he was not started on omadacycline until 12/26. He was therefore off antibiotics from 12/14- 12/25. During this time, he started getting worse, and by 12/25, he was slumped over, not as engaged, with severe back pain again. He began to have fevers along with AMS, rigors on 12/30 AM, so he presented to the ED, and was found to have recurrent E faecium bacteremia. On presentation, pt was afebrile with WBC 9.51. CTAP with contrast showed a mild constipation. CTA chest with no PE, prosthetic aortic valve, previous surgical repair of ascending aorta without residual aneurysm or dissection. MRI brain with few small acute infarcts in L cerebellum. MRI L spine without contrast showed significant interval decrease in signal abnormality at T12-L1 level from prior, which may represent resolved or resolving osteomyelitis/discitis, some residual high STIR signal change at this level suggests some mild ongoing inflammation. Pt was started on daptomycin and pip-tazo. BCx grew E faecium. UCx grew mares-S Pseudomonas and ESBL E coli. Martinez changed 01/04. TTE with bioprosthetic AV with elevated transvalvular gradient, unable to exclude vegetation involving atrial side of anterior leaflet of mitral valve or aortomitral curtain. Pt's family did not want to pursue MOIZ or surgical intervention if endocarditis was seen. Cardiology also feels pt would not be a good surgical candidate, so there was no clear benefit for MOIZ. Discussion Pt with recurrent E. 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 He presents with recurrent E. faecium bacteremia despite having been treated with dapto and ampicillin combination therapy from 09/16-12/13 (>12 weeks). The plan had been to transition to a suppressive PO antibiotic, but unfortunately due to delays in insurance approval, pt was not started on omadacycline until 12/26. TTE raises continued concern for endocarditis. MRI brain also with new small infarcts in cerebellum, could be embolic. MRI L-spine with improvement in T12-L1 findings from prior. Note that pt initially had VRE bacteremia 09/12-09/14, then vanc-sensitive E faecium bacteremia 09/15, 10/26, 10/28, 12/30. There may be different E. faecium subpopulations regardless, at this time it is uncertain whether we can trust the vanc susceptibility, and furthermore he has been on daptomycin (+ other synergy abx) which should be effective. The patient received 5d of meropenem (to cover Pseudomonas and ESBL E. coli in his urine of uncertain significance but treated for possible IV abx) which was stopped on 01/07. Pt now with persistent bacteremia from 12/30 01/08. The family's goal is to treat with another course of IV antibiotics with subsequent transition to PO suppression, until ready for hospice. Concerning that blood cultures remain positive on 01/08, indicating >1 week of persistent bacteremia, and would continue to revisit GOC discussions. Would continue high-dose daptomycin and ceftaroline for synergy. Thus far, despite combination therapy, the patient continues to have persistent bacteremia. (Note: discussed already with ID pharmacist who recommended the higher-dose daptomycin and overrode the standard daptomycin dosing protocol). Do note that experimental therapies (oritavancin, phage therapy, etc.) and sometimes even a third agent (temporary use of linezolid) have been reported, but given this patients broader GOC situation (family already on board with hospice in the near future) and the patient being overall already on maximal standard therapy, would continue to discuss GOC. Pt has now received 5 days of meropenem for positive urine culture (colonization vs UTI). The meropenem was changed to ceftaroline for potentially improved synergy. Recommendations: - Continue daptomycin 800 mg IV q24h and ceftaroline 600 mg IV q8h for synergy dosing, for persistent E. faecium bacteremia and suspected PVE/aortic graft infection - Continue vancomycin 125 mg PO daily for secondary ppx of C. diff - Obtain BCx q48h to assess for clearance. BCx last ordered on 01/10 - Continue goals of care discussions - If BCx clear, then likely will need another 6 weeks of dapto plus synergy abx (either ceftaroline or ampicillin) starting from blood culture clearance - Sent omadacycline sensis to [facility] from 01/03 blood culture ID will continue to follow. [place] Noriega MD, M[facility] Infectious Diseases [facility]/ID Connect ID Connect direct line: [phone] Admission and Anticipated Discharge Date Admission Date: December 30, 2024 Subjective This patient recommendation is based on a telemedicine consult request which was completed asynchronously through chart review and information provided by the primary physician. The patient was not seen or examined today. The evaluation is consultative in nature and all patient care and treatment decisions can either be accepted or rejected by the patient's primary hospital-based treating physician using their own independent medical judgment for their patient. Time Spent Reviewing Chart: 31+ minutes PLEASE NOTE: E-consult was performed for this visit given limited telepresenter availability. - Remains persistently bacteremic with E. faecium - Afebrile, WBC 7.94 Results & Data Vital Signs (Past 12 Hours) Vital Signs Temp Pulse Resp BP Pulse Ox O2 Del Method 01/10/25 08:00 36.6 C 90 22 122/74 97 Room Air 01/10/25 03:07 36.5 C 89 24 114/89 94 Room Air Laboratory Results Diagnostics: 01/01 L-spine MRI Significant interval decrease in signal abnormality at the T12-L1 level from prior, which may represent resolved or resolving osteomyelitis/discitis. Some residual high STIR signal change at this level suggest some mild ongoing inflammation. Micro Data: 01/10 BCx x2: PEND 01/08 BCx x2: E. faecium in 4/4 bottles 01/06 BCx x2: E. faecium in 4/4 bottles 01/04 BCx x2: E. faecium in 4/4 bottles 01/03 BCx x2: E. faecium in 4/4 bottles 12/30 UCx: Pseudomonas (mares-S), ESBL E coli (R cipro, levo. S erta, vicky, TMP/SMX) 12/30 BCx x2: E. faecium in 4/4 bottles (S dapto, linezolid, vanc MARTA 0.25) 11/02 BCx x2: NG 10/28 BCx x2: E. faecium in 1/4 bottles 10/27 Catheter tip cx: NG 10/26 UCx: Pseudomonas, Natacha 10/26 BCx x2: E. faecium in 4/4 bottles (S dapto MARTA 4, vanc MARTA 0.25, linezolid MARTA 1. R ampicillin. Also R to doxy, levo per conversation with micro lab) 09/15 BCx x2: E. faecium in 3/4 bottles (S dapto MARTA 2, vanc MARTA 0.5. R ampicillin) 09/14 BCx x1: VRE faecium in 2/2 bottles 09/13 BCx x2: VRE faecium in 4/4 bottles 09/12 BCx x2: VRE faecium in 4/4 bottles (S dapto MARTA 4. R vanc MARTA >16, a mpicillin) Antibiotic Summary: Daptomycin 12/30 present Ceftaroline 01/07 present prior Meropenem 01/03 01/07 Pip-tazo 12/30 - 01/03
[2025-01-10] MEDS ORDERED: Nursing to Pharmacy Communication SCH (14:45)
[2025-01-10] MEDS: ACETAMINOPHEN 1,000 MG/100 ML VIAL IV SCH (19:59)
[2025-01-11 06:42] LABS: Anion Gap 5.0 (3-11); Calcium 8.1 mg/dl (8.6-10.3); Carbon Dioxide 25.0 mmol/L (21-32); Chloride 103.0 mmol/L (98-107); Potassium 3.8 mmol/L (3.5-5.1); Sodium 133.0 mmol/L (136-145)
[2025-01-11 06:47] LABS: Blood Urea Nitrogen 22.0 mg/dl (6-23); Creatinine Clr Calc Pharmacy 89.6 ml/min; Glucose 87.0 mg/dl (70-99(Fasting))
[2025-01-11 07:57] LABS: Platelet Count 169 K/uL (130-400); White Blood Count 6.55 K/ul (4.8-10.8)
[2025-01-11 08:21] LABS: Hematocrit (blood only) 32.0 % (42.0-52.0); Hemoglobin 10.0 g/dl (14.0-18.0); Immature Granulocytes # (auto) 0.02 K/uL (0.01-0.20); Immature Granulocytes % (auto) 0.3 %; Mean Corpuscular Hemoglobin 29.0 pg (25.0-34.0); Mean Corpuscular Volume 92.8 fL (80.0-100.0); RDW Standard Deviation 52.4 fL (36.4-46.3); Red Blood Count 3.45 M/uL (4.70-6.10)
--- NOTE | 2025-01-11 15:00 | Hospitalist Progress Note ---
"Date of Service January 11, 2025 Assessment & Plan (1) Bacterial endocarditis: Plan Plan Keith Lopez is a 84 yo M resident of [facility], nonverbal, with h/o prior CVA, severe dementia, seizure, chronic indwelling martinez, recurrent UTIs, paroxysmal atrial tachycardia, bicuspid valve s/p aortic valve replacement/proximal aortic aneurysm repair, left hip replacement and recurrent infections. He presented with AMS and fever and was found to have recurrent E faecium bacteremia, including in 01/06/25 blood cultures and G+ cocci in chain on 01/08/25 cx. Requires continued inpatient monitoring and management with IV abx. As of today, he has had persistent bacteremia (today's BC pending) despite on being on broad- spectrum abx and with a history of recurrent UTIs with suspected bacterial endocarditis. Conversations with family on goals of care are ongoing and ID is concerned with pt. being able to clear the infectious given the extensive amount of time pt. has already been on abx, in addition to new CVA, and worsened mental status. Blood cultures from yesterday were positive again for gram + cocci had ongoing concerns for poor prognosis. #Suspected bacterial endocarditis #Enterococcus faecium bacteremia Assessment: Blood cultures on admission show growth of Enterococcus faecium, latest BC from yesterday showed similar growth of gram positive cocci. Urine is growing Pseudomonas and ESBL E coli. Prognosis appears poor due to persistent bacteremia with recurrent admission for management of infections (some with resistant organisms) and advanced dementia. Plan: - New BC showing persistent bacteremia, plan for today is to discuss with ID and family on goals of care. Will continue abx regimen in the meantime. - Continue following ID recs of ceftaroline 600 mg IV q8h per ID recommendation, continuing Daptomycin from 12/30/24 - Continue oral vancomycin for C. diff prophylaxis given hx of C.diff infection #Hyponatremia, acute Assessment: Has had mild hyponatremia, likely secondary to hypovolemia and decreased PO intake, 133 this AM, stable in comparison to yesterday's value. - Continuing light maintenance NS at 80cc/hr, re-assess depending on trending labs and clinical status - Monitor am lab #Embolic stroke Assessment: MRI brain shows multiple embolic CVA noted in the left cerebellar lobe. Suspected embolic process from endocarditis. CTA shows 30% stenosis in the right ICA, and 20% stenosis in the left ICA. Plan: - Supportive care #Metabolic encephalopathy Assessment: Pt. presented with metabolic encephalopathy likely on admission given AMS and fevers leading up to ED visit. Given infectious presentation and blood cultures + UA showing signs of infection, encephalopathy likely due to CAUTI, bacteremia, and acute CVA. Plan: - Continuing abx, fluids, and CMP trending for electrolyte abnormalities/as needed repletion. Will re-assess plan depending on family meeting regarding abx regimen. - Supportive care > Ordered q4 oral care due to mouth being apparently open when sleeping/possibly at baseline > Continue thickened liquid/pureed diet with aspiration precautions: only upright feeds, HOB no lower than 30deg when not eating #Urinary tract infection: Assessment: UA results showed Pseudomonas and ESBL E coli, likely catheter associated and expected given chronic hx of recurrent UTIs. Plan: - New Martinez catheter placed on 01/04/25 given bacteriuria. - Continue monitor Is and Os - 0.66 mL/kg/day UOP today - Continue abx as above. #Back pain, chronic: Assessment: pt has a hx of lumbar discitis/osteomyelitis in October of this year Plan: - Repeat lumbar MRI during hospitalization negative for abscess formation. - Continue Acetaminophen for pain control. #MSK Strain | Cramps Assessment:Was having Charley Horses/muscle cramps at bedside yesterday likely secondary due to lack of ambulation, malnutrition/dehydration, and/or due to electrolyte abnormalities. Mg, CK, and K were WNL and 1 g of IV mag of repletion. LRs are currently ongoing at 80 mL/hr Plan: - Resolved #Hypocalcemia Assessment: He has had a downtrending Ca level the past few days, currently 8.1. He appears stable clinically right now with a negative Chvostek's sign. Possibly secondary to dry status and decreased PO intake, difficult to assess true calcium level given no current albumin level. Plan: - Draw CMP with morning labs to measure albumin and assess for corrected Ca level. - Consider Ca repletion if needed based on morning labs Admission and Anticipated Discharge Date Admission Date: December 30, 2024 Supervising Physician Co-Signing Physician Notes I personally examined the patient and verified brandon points of history and exam, discussed case, and agree with decision making and plan documented by Dr. Escobedo and Carline Hernandez MS IV. Hospital medicine and ID in conversation with patient's and daughter, Candida, in regard to GOC. Will re-culture blood tomorrow. Patient with persistent positive blood cultures with last 01/10/25. Continue IV antibiotics. Subjective Seen at bedside this AM, more alert and talkative. Does not feel that he's in pain. Looks forward to seeing his later today. Does not have anymore muscle cramps. Review of Systems Review of Systems: Negative across all systems. Physical Exam Physical Exam: General: Does not appear in acute distress. HEENT: Head is normocephalic and atraumatic. PERRLA. No cervical lymphadenopathy. CV: S1 and S2 sounds present. RRR. No murmurs, rubs, or gallops. Resp: CTA B/L. No rales, wheezing, or rhonchi. GI: Normoactive bowel sounds. No tenderness to palpation. MSK: No peripheral edema. No abnormal lesions visualized. Pads on heels in place for wound prevention. Chvostek's sign negative. Psych: Hard to interpret his words most of the time, unable to assess psych status, but does appear cooperative and have appropriate mood and affect. Results & Data Results & Data Vital Signs (Past 12 Hours) Vital Signs Temp Pulse Pulse Resp BP Pulse Ox O2 Del Method 01/10/25 23:00 36.5 C 84 18 105/70 92 Room Air 01/10/25 22:59 87 (1) Bacterial endocarditis Chronicity: acute Qualified Code(s): I33.0 - Acute and subacute infective endocarditis"
--- NOTE | 2025-01-11 15:14 | Infectious Disease Progress Nt ---
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 diff Impression: Keith Lopez is a 84 yo M resident of [facility], nonverbal, with h/o prior CVA, dementia, seizure, chronic indwelling martinez, recurrent UTIs, paroxysmal atrial tachycardia, bicuspid valve s/p aortic valve replacement/proximal aortic aneurysm repair 2013, left hip replacement in 2022, HTN, prior C. diff infection 07/2023 with recurrence 08/2023, admission 09/12-09/23/24 with back pain with progressive bl LE weakness x few weeks f/w VRE faecium bacteremia (T12-L1 discitis/OM, suspected PVE since MOIZ deferred, TTE neg) on dapto/ampicillin x 6wks (anticipated end 10/27). He was readmitted 10/26-11/09/24 with recurrent E faecium bacteremia while on dapto/ampicillin (10/26, 10/28), acute hypoxic respiratory failure, parainfluenza. During that admission, PICC was removed and catheter tip cx negative. MRI C/T/L spine without new areas of infection. TTE w ithout obvious endocarditis, but severity of mitral regurg appeared to be increased compared to prior. MOIZ deferred given GOC and ineligibility for surgery. CTA chest was performed 11/02 to assess aortic graft material for infection--per radiologist, for ideal assessment, would need to time the contrast differently, but no signs of graft infection on that CT. PICC line was replaced and he was discharged on another 6 week course of daptomycin and ampicillin through 12/13/24, with plan to switch to lifelong suppressive PO antibiotic subsequently. He was subsequently seen at [facility] for ID follow-up with plan to switch to omadacycline for PO suppression after completing IV antibiotic course. Per pt's daughter, pt was looking the best she has seen him on 12/14--sitting up straight in his wheelchair, eating on his own, without back pain. Unfortunately, there were delays with insurance approval, and he was not started on omadacycline until 12/26. He was therefore off antibiotics from 12/14- 12/25. During this time, he started getting worse, and by 12/25, he was slumped over, not as engaged, with severe back pain again. He began to have fevers along with AMS, rigors on 12/30 AM, so he presented to the ED, and was found to have recurrent E faecium bacteremia. On presentation, pt was afebrile with WBC 9.51. CTAP with contrast showed a mild constipation. CTA chest with no PE, prosthetic aortic valve, previous surgical repair of ascending aorta without residual aneurysm or dissection. MRI brain with few small acute infarcts in L cerebellum. MRI L spine without contrast showed significant interval decrease in signal abnormality at T12-L1 level from prior, which may represent resolved or resolving osteomyelitis/discitis, some residual high STIR signal change at this level suggests some mild ongoing inflammation. Pt was started on daptomycin and pip-tazo. BCx grew E faecium. UCx grew mares-S Pseudomonas and ESBL E coli. Martinez changed 01/04. TTE with bioprosthetic AV with elevated transvalvular gradient, unable to exclude vegetation involving atrial side of anterior leaflet of mitral valve or aortomitral curtain. Pt's family did not want to pursue MOIZ or surgical intervention if endocarditis was seen. Cardiology also feels pt would not be a good surgical candidate, so there was no clear benefit for MOIZ. Discussion Pt with recurrent E. 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 He presents with recurrent E. faecium bacteremia despite having been treated with dapto and ampicillin combination therapy from 09/16-12/13 (>12 weeks). The plan had been to transition to a suppressive PO antibiotic, but unfortunately due to delays in insurance approval, pt was not started on omadacycline until 12/26. TTE raises continued concern for endocarditis. MRI brain also with new small infarcts in cerebellum, could be embolic. MRI L-spine with improvement in T12-L1 findings from prior. Note that pt initially had VRE bacteremia 09/12-09/14, then vanc-sensitive E faecium bacteremia 09/15, 10/26, 10/28, 12/30. There may be different E. faecium subpopulations regardless, at this time it is uncertain whether we can trust the vanc susceptibility, and furthermore he has been on daptomycin (+ other synergy abx) which should be effective. The patient received 5d of meropenem (to cover Pseudomonas and ESBL E. coli in his urine of uncertain significance but treated for possible IV abx) which was stopped on 01/07. Pt now with persistent bacteremia from 12/30 01/08. The family's goal is to treat with another course of IV antibiotics with subsequent transition to PO suppression, until ready for hospice. Concerning that blood cultures remain positive on 01/08, indicating >1 week of persistent bacteremia, and would continue to revisit GOC discussions. Would continue high-dose daptomycin and ceftaroline for synergy. Thus far, despite combination therapy, the patient continues to have persistent bacteremia. (Note: discussed already with ID pharmacist who recommended the higher-dose daptomycin and overrode the standard daptomycin dosing protocol). Do note that experimental therapies (oritavancin, phage therapy, etc.) and sometimes even a third agent (temporary use of linezolid) have been reported, but given this patients broader GOC situation (family already on board with hospice in the near future) and the patient being overall already on maximal standard therapy, would continue to discuss GOC. On 01/11, I called the patients daughter Renita ([phone]) who has shared POA status with her mother. We discussed that her father remains bacteremic, with rapid growth of the 01/10 BCx in / bottles. We discussed that Keith has not cleared BCx for several days (although was only changed to maximal therapy with higher-dose daptomycin and ceftaroline on 01/07). This is reflective of a high burden of infection (large amount of infection), which we also can see because Keith has had multiple complications diagnosed recently (cerebellar stroke, spine infection). It is possible that he may have another serious complication, even while on antibiotic treatment. We also discussed that there are multiple ways that we can make her father comfortable the most urgent would be that he could be made impatient comfort measures. Other options discussed included transitioning to hospice at his facility if we are able to clear his blood cultures and get him there. Renita is aware that being made SHIFT MECHANIC means that medications would be given to address pain and anxiety, but that those me dications would likely make her dad very sleepy. We discussed that her dad is likely to pass away very quickly after antibiotics are stopped (days, or maybe even hours not weeks/months). We talked about potentially doing a time-limited trial of antibiotics to see whether they make any improvement in the BCx (clearance, or at least the rapidity/# of bottles that are positive) and/or in her fathers mental status. We also discussed that at any point, a complication of his infection may occur, which may also prompt a change in goals of care (e.g., can change to comfort care if the patient has a stroke). She also noted that he hasnt been able to wake up thus far while in the hospital. Renita would like to talk with her mother and then will reach out to the primary team and/or palliative care if she has questions or has made a decision about next steps. For now, will continue current abx therapy and obtain BCx on 01/12. Pt has now received 5 days of meropenem for positive urine culture (colonization vs UTI). The meropenem was changed to ceftaroline for potentially improved synergy. Recommendations: - Continue daptomycin 800 mg IV q24h and ceftaroline 600 mg IV q8h for synergy dosing, for persistent E. faecium bacteremia and suspected PVE/aortic graft infection - Continue vancomycin 125 mg PO daily for secondary ppx of C. diff - Obtain BCx q48h to assess for clearance. Plan to collect BCx on 01/12 - Continue goals of care discussions - If BCx clear, then likely will need another 6 weeks of dapto plus synergy abx (either ceftaroline or ampicillin) starting from blood culture clearance - Sent carlos eduardo longoria to [place] from 01/03 blood culture ID will continue to follow. [place] Noriega MD, [facility] Infectious Diseases [facility] ID Connect direct line: [phone] Admission and Anticipated Discharge Date Admission Date: December 30, 2024 Subjective Subsequent visit was provided via telemedicine using two-way real-time interactive telecommunication between the patient and the telemedicine provider. For the duration of the visit, the provider was performing the assessment from a different facility than the patient. This includesuse of bluetooth stethoscope forauscultationperformed by the telepresenter that the telemedicine provider can hear if described in the physical exam. [employer] Apprentice contact information: Please call [facility] Connect Call Center [phone]. (Phone Number For Physician Use Only) After establishing a telemedicine visit, patient was: Patient was verified with two unique identifiers, Patient/authorized rep acknowledged consent and understanding and Gave permission to continue telehealth session Time Spent with Patient: Subsequent => 55 min - BCx from 01/10 positive - Afebrile, WBC 6.55 - Pt remains lethargic, not interactive - I called the patients daughter Renita ([phone]) who has shared POA status with her mother. We discussed that her father remains bacteremic, with rapid growth of the 01/10 BCx in / bottles. We discussed that Keith has not cleared BCx for several days (although was only changed to maximal therapy with higher-dose daptomycin and ceftaroline on 01/07). This is reflective of a high burden of infection (large amount of infection), which we also can see because Keith has had multiple complications diagnosed recently (cerebellar stroke, spine infection). It is possible that he may have another serious complication, even while on antibiotic treatment. We also discussed that there are multiple ways that we can make her father comfortable the most urgent would be that he could be made impatient comfort measures. Other options discussed included transitioning to hospice at his facility if we are able to clear his blood cultures and get him there. Renita is aware that being made SHIFT MECHANIC means that medications would be given to address pain and anxiety, but that those medications would likely make her dad very sleepy. We discussed that her dad is likely to pass away very quickly after antibiotics are stopped (days, or maybe even hours not weeks/months). We talked about potentially doing a time-limited trial of antibiotics to see whether they make any improvement in the BCx (clearance, or at least the rapidity/# of bottles that are positive) and/or in her fathers mental status. We also discussed that at any point, a complication of his infection may occur, which may also prompt a change in goals of care (e.g., can change to comfort care if the patient has a stroke). She also noted that he hasnt been able to wake up thus far while in the hospital. Renita would like to talk with her mother and then will reach out to the primary team and/or palliative care if she has questions or has made a decision about next steps. For now, will continue current abx therapy and obtain BCx on 01/12. Results & Data Vital Signs (Past 12 Hours) Vital Signs Temp Pulse Pulse Resp BP Pulse Ox O2 Del Method 01/11/25 11:28 36.7 C 78 18 110/69 99 Room Air 01/11/25 08:00 87 01/11/25 08:00 36.8 C 79 18 124/76 91 Room Air Laboratory Results Diagnostics: 01/01 L-spine MRI Significant interval decrease in signal abnormality at the T12-L1 level from prior, which may represent resolved or resolving osteomyelitis/discitis. Some residual high STIR signal change at this level suggest some mild ongoing inflammation. Micro Data: 01/10 BCx x2: GPCs in chains in 4/ bottles 01/08 BCx x2: E. faecium in / bottles 01/06 BCx x2: E. faecium in / bottles 01/04 BCx x2: E. faecium in 4/4 bottles 01/03 BCx x2: E. faecium in 4/4 bottles 12/30 UCx: Pseudomonas (mares-S), ESBL E coli (R cipro, levo. S erta, vicky, TMP/SMX) 12/30 BCx x2: E. faecium in 4/ bottles (S dapto, linezolid, vanc MARTA 0.25) 11/02 BCx x2: NG 10/28 BCx x2: E. faecium in 1/ bottles 10/27 Catheter tip cx: NG 10/26 UCx: Pseudomonas, Natacha 10/26 BCx x2: E. faecium in 4/4 bottles (S dapto MARTA 4, vanc MARTA 0.25, linezolid MARTA 1. R ampicillin. Also R to doxy, levo per conversation with micro lab) 09/15 BCx x2: E. faecium in 3/4 bottles (S dapto MARTA 2, vanc MARTA 0.5. R ampicillin) 09/14 BCx x1: VRE faecium in 2/2 bottles 09/13 BCx x2: VRE faecium in 4/4 bottles 09/12 BCx x2: VRE faecium in 4/4 bottles (S dapto MARTA 4. R vanc MARTA >16, ampicillin) Antibiotic Summary: Daptomycin 12/30 present Ceftaroline 01/07 present prior Meropenem 01/03 01/07 Pip-tazo 12/30 - 01/03
[2025-01-12 05:35] LABS: Alanine Aminotransferase 66.0 U/L (7-52); Albumin Globulin Ratio 0.8 (0.9-2); Alkaline Phosphatase 122.0 U/L (34-104); Anion Gap 5.0 (3-11); Bilirubin,Total 0.5 mg/dl (0.2-1.0); Blood Urea Nitrogen 19.0 mg/dl (6-23); Calcium 8.1 mg/dl (8.6-10.3); Carbon Dioxide 25.0 mmol/L (21-32); Chloride 103.0 mmol/L (98-107); Creatinine Clr Calc Pharmacy 97.9 ml/min; Globulin 3.1 gm/dl (2.5-4.0); Glucose 89.0 mg/dl (70-99(Fasting)); Potassium 3.9 mmol/L (3.5-5.1); Sodium 133.0 mmol/L (136-145); Total Protein 5.5 gm/dl (6.0-8.3)
--- NOTE | 2025-01-12 10:41 | Hospitalist Progress Note ---
"Date of Service January 12, 2025 Assessment & Plan (1) Bacterial endocarditis: Plan Plan Keith Lopez is a 84 yo M resident of [facility], nonverbal, with h/o prior CVA, severe dementia, seizure, chronic indwelling martinez, recurrent UTIs, paroxysmal atrial tachycardia, bicuspid valve s/p aortic valve replacement/proximal aortic aneurysm repair, left hip replacement and recurrent infections. He presented with AMS and fever and was found to have recurrent E faecium bacteremia, including in 01/06/25 blood cultures and G+ cocci in chain on 01/08/25 cx. Requires continued inpatient monitoring and management with IV abx. As of today, he has had persistent bacteremia (today's BC pending) despite on being on broad- spectrum abx and with a history of recurrent UTIs with suspected bacterial endocarditis. Conversations with family on goals of care are ongoing and ID is concerned with pt. being able to clear the infectious given the extensive amount of time pt. has already been on abx, in addition to new CVA, and worsened mental status. Blood cultures from (01/10) were positive for gram + cocci . Has ongoing concerns for poor prognosis. #Suspected bacterial endocarditis #Enterococcus faecium bacteremia Assessment: Blood cultures on admission show growth of Enterococcus faecium, latest BC from yesterday showed similar growth of gram positive cocci. Urine is growing Pseudomonas and ESBL E coli. Prognosis appears poor due to persistent bacteremia with recurrent admission for management of infections (some with resistant organisms) and advanced dementia. Plan: - Discussed with the family about goals of care. Will continue abx regimen in the meantime. - Continue following ID recs of ceftaroline 600 mg IV q8h per ID recommendation, continuing Daptomycin from 12/30/24 - Continue oral vancomycin for C. diff prophylaxis given hx of C.diff infection #Hyponatremia, acute Assessment: Has had mild hyponatremia, likely secondary to hypovolemia and decreased PO intake, 133 this AM, stable in comparison to yesterday's value. - Continuing light maintenance NS at 80cc/hr, re-assess depending on trending labs and clinical status - Monitor am lab #Embolic stroke Assessment: MRI brain shows multiple embolic CVA noted in the left cerebellar lobe. Suspected embolic process from endocarditis. CTA shows 30% stenosis in the right ICA, and 20% stenosis in the left ICA. Plan: - Supportive care #Metabolic encephalopathy Assessment: Pt. presented with metabolic encephalopathy likely on admission given AMS and fevers leading up to ED visit. Given infectious presentation and blood cultures + UA showing signs of infection, encephalopathy likely due to CAUTI, bacteremia, and acute CVA. Plan: - Continuing abx, fluids, and CMP trending for electrolyte abnormalities/as needed repletion. Will re-assess plan depending on family meeting regarding abx regimen. - Supportive care > Ordered q4 oral care due to mouth being apparently open when sleeping/possibly at baseline > Continue thickened liquid/pureed diet with aspiration precautions: only upright feeds, HOB no lower than 30deg when not eating #Urinary tract infection: Assessment: UA results showed Pseudomonas and ESBL E coli, likely catheter associated and expected given chronic hx of recurrent UTIs. Plan: - New Martinez catheter placed on 01/04/25 given bacteriuria. - Continue monitor Is and Os - 0.66 mL/kg/day UOP today - Continue abx as above. #Back pain, chronic: Assessment: pt has a hx of lumbar discitis/osteomyelitis in October of this year Plan: - Repeat lumbar MRI during hospitalization negative for abscess formation. - Continue Acetaminophen for pain control. #MSK Strain | Cramps Assessment:Was having Charley Horses/muscle cramps at bedside yesterday likely secondary due to lack of ambulation, malnutrition/dehydration, and/or due to electrolyte abnormalities. Mg, CK, and K were WNL and 1 g of IV mag of repletion. LRs are currently ongoing at 80 mL/hr Plan: - Resolved #Hypocalcemia Assessment: He has had a downtrending Ca level the past few days, currently 8.1. He appears stable clinically right now with a negative Chvostek's sign. Possibly secondary to dry status and decreased PO intake, difficult to assess true calcium level given no current albumin level. Plan: - Draw CMP with morning labs to measure albumin and assess for corrected Ca level. - Consider Ca repletion if needed based on morning labs Admission and Anticipated Discharge Date Admission Date: December 30, 2024 Supervising Physician Co-Signing Physician Notes I personally examined the patient and verified brandon points of history and exam, discussed case, and agree with decision making and plan documented by Dr. Escobedo and Carline Hernandez MS IV. Repeat blood cultures obtained for evaluation of persistent bacteremia. ID following. Continue IV antibiotics. No events overnight. Subjective No significant changes in examination findings compared to yesterday. No overnight events or new concerns have been reported. Review of Systems Review of Systems: As per HPI Physical Exam Physical Exam: General: Does not appear in acute distress. HEENT: Head is normocephalic and atraumatic. PERRLA. No cervical lymphadenopathy. CV: S1 and S2 sounds present. RRR. No murmurs, rubs, or gallops. Resp: CTA B/L. No rales, wheezing, or rhonchi. GI: Normoactive bowel sounds. No tenderness to palpation. MSK: No peripheral edema. No abnormal lesions visualized. Pads on heels in place for wound prevention. Chvostek's sign negative. Psych: Hard to interpret his words most of the time, unable to assess psych status, but does appear cooperative and have appropriate mood and affect. Results & Data Results & Data Vital Signs (Past 12 Hours) Vital Signs Temp Pulse Pulse Resp BP Pulse Ox O2 Del Method 01/12/25 03:44 36.1 C L 87 18 121/83 97 Room Air 01/11/25 23:33 36.7 C 88 20 125/82 98 Room Air 01/11/25 23:15 91 H 01/11/25 19:26 36.6 C 86 16 118/85 97 Room Air Resident Activity Tracking Resident Involvement: Resident Care Provided Care Provided: Adult Hospital Medicine (1) Bacterial endocarditis Chronicity: acute Qualified Code(s): I33.0 - Acute and subacute infective endocarditis"
--- NOTE | 2025-01-12 14:07 | Infectious Disease Progress Nt ---
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 diff Impression: Keith Lopez is a 84 yo M resident of [facility], nonverbal, with h/o prior CVA, dementia, seizure, chronic indwelling martinez, recurrent UTIs, paroxysmal atrial tachycardia, bicuspid valve s/p aortic valve replacement/proximal aortic aneurysm repair 2013, left hip replacement in 2022, HTN, prior C. diff infection 07/2023 with recurrence 08/2023, admission 09/12-09/23/24 with back pain with progressive bl LE weakness x few weeks f/w VRE faecium bacteremia (T12-L1 discitis/OM, suspected PVE since MOIZ deferred, TTE neg) on dapto/ampicillin x 6wks (anticipated end 10/27). He was readmitted 10/26-11/09/24 with recurrent E faecium bacteremia while on dapto/ampicillin (10/26, 10/28), acute hypoxic respiratory failure, parainfluenza. During that admission, PICC was removed and catheter tip cx negative. MRI C/T/L spine without new areas of infection. TTE w ithout obvious endocarditis, but severity of mitral regurg appeared to be increased compared to prior. MOIZ deferred given GOC and ineligibility for surgery. CTA chest was performed 11/02 to assess aortic graft material for infection--per radiologist, for ideal assessment, would need to time the contrast differently, but no signs of graft infection on that CT. PICC line was replaced and he was discharged on another 6 week course of daptomycin and ampicillin through 12/13/24, with plan to switch to lifelong suppressive PO antibiotic subsequently. He was subsequently seen at [facility] for ID follow-up with plan to switch to omadacycline for PO suppression after completing IV antibiotic course. Per pt's daughter, pt was looking the best she has seen him on 12/14--sitting up straight in his wheelchair, eating on his own, without back pain. Unfortunately, there were delays with insurance approval, and he was not started on omadacycline until 12/26. He was therefore off antibiotics from 12/14- 12/25. During this time, he started getting worse, and by 12/25, he was slumped over, not as engaged, with severe back pain again. He began to have fevers along with AMS, rigors on 12/30 AM, so he presented to the ED, and was found to have recurrent E faecium bacteremia. On presentation, pt was afebrile with WBC 9.51. CTAP with contrast showed a mild constipation. CTA chest with no PE, prosthetic aortic valve, previous surgical repair of ascending aorta without residual aneurysm or dissection. MRI brain with few small acute infarcts in L cerebellum. MRI L spine without contrast showed significant interval decrease in signal abnormality at T12-L1 level from prior, which may represent resolved or resolving osteomyelitis/discitis, some residual high STIR signal change at this level suggests some mild ongoing inflammation. Pt was started on daptomycin and pip-tazo. BCx grew E faecium. UCx grew mares-S Pseudomonas and ESBL E coli. Martinez changed 01/04. TTE with bioprosthetic AV with elevated transvalvular gradient, unable to exclude vegetation involving atrial side of anterior leaflet of mitral valve or aortomitral curtain. Pt's family did not want to pursue MOIZ or surgical intervention if endocarditis was seen. Cardiology also feels pt would not be a good surgical candidate, so there was no clear benefit for MOIZ. Discussion Pt with recurrent E. 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 He presents with recurrent E. faecium bacteremia despite having been treated with dapto and ampicillin combination therapy from 09/16-12/13 (>12 weeks). The plan had been to transition to a suppressive PO antibiotic, but unfortunately due to delays in insurance approval, pt was not started on omadacycline until 12/26. TTE raises continued concern for endocarditis. MRI brain also with new small infarcts in cerebellum, could be embolic. MRI L-spine with improvement in T12-L1 findings from prior. Note that pt initially had VRE bacteremia 09/12-09/14, then vanc-sensitive E faecium bacteremia 09/15, 10/26, 10/28, 12/30. There may be different E. faecium subpopulations regardless, at this time it is uncertain whether we can trust the vanc susceptibility, and furthermore he has been on daptomycin (+ other synergy abx) which should be effective. The patient received 5d of meropenem (to cover Pseudomonas and ESBL E. coli in his urine of uncertain significance but treated for possible IV abx) which was stopped on 01/07. Pt now with persistent bacteremia from 12/30 01/08. The family's goal is to treat with another course of IV antibiotics with subsequent transition to PO suppression, until ready for hospice. Concerning that blood cultures remain positive on 01/08, indicating >1 week of persistent bacteremia, and would continue to revisit GOC discussions. Would continue high-dose daptomycin and ceftaroline for synergy. Thus far, despite combination therapy, the patient continues to have persistent bacteremia. (Note: discussed already with ID pharmacist who recommended the higher-dose daptomycin and overrode the standard daptomycin dosing protocol). Do note that experimental therapies (oritavancin, phage therapy, etc.) and sometimes even a third agent (temporary use of linezolid) have been reported, but given this patients broader GOC situation (family already on board with hospice in the near future) and the patient being overall already on maximal standard therapy, would continue to discuss GOC. On 01/11, I called the patients daughter Renita ([phone]) who has shared POA status with her mother. We discussed that her father remains bacteremic, with rapid growth of the 01/10 BCx in / bottles. We discussed that Keith has not cleared BCx for several days (although was only changed to maximal therapy with higher-dose daptomycin and ceftaroline on 01/07). This is reflective of a high burden of infection (large amount of infection), which we also can see because Keith has had multiple complications diagnosed recently (cerebellar stroke, spine infection). It is possible that he may have another serious complication, even while on antibiotic treatment. We also discussed that there are multiple ways that we can make her father comfortable the most urgent would be that he could be made impatient comfort measures. Other options discussed included transitioning to hospice at his facility if we are able to clear his blood cultures and get him there. Renita is aware that being made BILLING SPEC means that medications would be given to address pain and anxiety, but that those me dications would likely make her dad very sleepy. We discussed that her dad is likely to pass away very quickly after antibiotics are stopped (days, or maybe even hours not weeks/months). We talked about potentially doing a time-limited trial of antibiotics to see whether they make any improvement in the BCx (clearance, or at least the rapidity/# of bottles that are positive) and/or in her fathers mental status. We also discussed that at any point, a complication of his infection may occur, which may also prompt a change in goals of care (e.g., can change to comfort care if the patient has a stroke). She also noted that he hasnt been able to wake up thus far while in the hospital. Renita would like to talk with her mother and then will reach out to the primary team and/or palliative care if she has questions or has made a decision about next steps. For now, will continue current abx therapy and obtain BCx on 01/12. Pt received 5 days of meropenem for positive urine culture (colonization vs UTI). The meropenem was changed to ceftaroline for potentially improved synergy. Recommendations: - Continue daptomycin 800 mg IV q24h and ceftaroline 600 mg IV q8h for synergy dosing, for persistent E. faecium bacteremia and suspected PVE/aortic graft infection - Continue vancomycin 125 mg PO daily for secondary ppx of C. diff - Obtain BCx q48h to assess for clearance. Last ordered for 01/12 - Continue goals of care discussions - If BCx clear, then likely will need another 6 weeks of dapto plus synergy abx (either ceftaroline or ampicillin) starting from blood culture clearance - Sent vincentadacycldiane poeis to [place] from 01/03 blood culture ID will continue to follow. Jamaica Noriega MD, MHS Infectious Diseases [facility] Connect ID Connect direct line: [phone] Admission and Anticipated Discharge Date Admission Date: December 30, 2024 Subjective Subsequent visit was provided via telemedicine using two-way real-time interactive telecommunication between the patient and the telemedicine provider. For the duration of the visit, the provider was performing the assessment from a different facility than the patient. This includesuse of bluetooth stethoscope forauscultationperformed by the telepresenter that the telemedicine provider can hear if described in the physical exam. Financial Services Sales Representative contact information: Please call ID Connect Call Center . (Phone Number For Physician Use Only) After establishing a telemedicine visit, patient was: Patient was verified with two unique identifiers, Patient/authorized rep acknowledged consent and understanding and Gave permission to continue telehealth session Time Spent with Patient: Subsequent => 25 min Physical Exam Physical Exam: Exam obtained with assistance of an in-person telepresenter General: No acute distress HEENT: Conjunctivae non-injected, sclerae anicteric, MMM, OP clear. Resp: Respirations nonlabored. Abd: Soft, nontender, nondistended. Ext: No joint warmth or effusions noted. Skin: No rashes or lesions. Neuro: Sleepy. Cognitive impairment, babbling. Psych: Pleasant, appropriate. Results & Data Vital Signs (Past 12 Hours) Vital Signs Temp Pulse Pulse Resp BP Pulse Ox O2 Del Method 01/12/25 12:45 Room Air 01/12/25 12:13 36.1 C L 96 H 20 107/67 96 Room Air 01/12/25 07:31 36.3 C L 93 H 20 138/94 95 Room Air 01/12/25 07:00 79 01/12/25 03:44 36.1 C L 87 18 121/83 97 Room Air Diagnostic Findings Diagnostics: 01/01 L-spine MRI Significant interval decrease in signal abnormality at the T12-L1 level from prior, which may represent resolved or resolving osteomyelitis/discitis. Some residual high STIR signal change at this level suggest some mild ongoing inflammation. Micro Data: 01/12 BCx x2: PEND 01/10 BCx x2: E. faecium in 4/4 bottles 01/08 BCx x2: E. faecium in 4/4 bottles 01/06 BCx x2: E. faecium in 4/4 bottles 01/04 BCx x2: E. faecium in 4/4 bottles 01/03 BCx x2: E. faecium in 4/4 bottles 12/30 UCx: Pseudomonas (mares-S), ESBL E coli (R cipro, levo. S erta, vicky, TMP/SMX) 12/30 BCx x2: E. faecium in 4/4 bottles (S dapto, linezolid, vanc MARTA 0.25) 11/02 BCx x2: NG 10/28 BCx x2: E. faecium in 1/4 bottles 10/27 Catheter tip cx: NG 10/26 UCx: Pseudomonas, Natacha 10/26 BCx x2: E. faecium in 4/4 bottles (S dapto MARTA 4, vanc MARTA 0.25, linezolid MARTA 1. R ampicillin. Also R to doxy, levo per conversation with micro lab) 09/15 BCx x2: E. faecium in 3/4 bottles (S dapto MARTA 2, vanc MARTA 0.5. R ampicillin) 09/14 BCx x1: VRE faecium in 2/2 bottles 09/13 BCx x2: VRE faecium in 4/4 bottles 09/12 BCx x2: VRE faecium in 4/4 bottles (S dapto MARTA 4. R vanc MARTA >16, ampicillin) Antibiotic Summary: Daptomycin 12/30 present Ceftaroline 01/07 present prior Meropenem 01/03 01/07 Pip-tazo 12/30 - 01/03
--- NOTE | 2025-01-13 07:59 | Hospitalist Progress Note ---
"Date of Service January 13, 2025 Assessment & Plan (1) Bacterial endocarditis: Plan Plan Keith Lopez is a 84 yo M resident of [facility], nonverbal, with h/o prior CVA, severe dementia, seizure, chronic indwelling martinez, recurrent UTIs, paroxysmal atrial tachycardia, bicuspid valve s/p aortic valve replacement/proximal aortic aneurysm repair, left hip replacement and recurrent infections. He presented with AMS and fever and was found to have recurrent E faecium bacteremia, including in 01/06/25 blood cultures and G+ cocci in chain on 01/08/25 cx. Requires continued inpatient monitoring and management with IV abx. As of today, he has had persistent bacteremia (today's BC pending) despite on being on broad- spectrum abx and with a history of recurrent UTIs with suspected bacterial endocarditis. Conversations with family on goals of care are ongoing and ID is concerned with pt. being able to clear the infectious given the extensive amount of time pt. has already been on abx, in addition to new CVA, and worsened mental status. Blood cultures from (01/12) were positive for gram + cocci . Has ongoing concerns for poor prognosis. #Suspected bacterial endocarditis #Enterococcus faecium bacteremia Assessment: Blood cultures on admission show growth of Enterococcus faecium, latest BC from yesterday showed similar growth of gram positive cocci. Urine is growing Pseudomonas and ESBL E coli. Prognosis appears poor due to persistent bacteremia with recurrent admission for management of infections (some with resistant organisms) and advanced dementia. Plan: - Discussed with the family about goals of care. Will continue abx regimen in the meantime. - Continue following ID recs of ceftaroline 600 mg IV q8h per ID recommendation, continuing Daptomycin from 12/30/24 - Continue oral vancomycin for C. diff prophylaxis given hx of C.diff infection -Palliative care discussion today. For detail, refer Palliative notes #Hyponatremia, acute Assessment: Has had mild hyponatremia, likely secondary to hypovolemia and decreased PO intake, 133 this AM, stable - Continuing light maintenance NS at 80cc/hr, re-assess depending on trending labs and clinical status #Embolic stroke Assessment: MRI brain shows multiple embolic CVA noted in the left cerebellar lobe. Suspected embolic process from endocarditis. CTA shows 30% stenosis in the right ICA, and 20% stenosis in the left ICA. Plan: - Supportive care #Metabolic encephalopathy Assessment: Pt. presented with metabolic encephalopathy likely on admission given AMS and fevers leading up to ED visit. Given infectious presentation and blood cultures + UA showing signs of infection, encephalopathy likely due to CAUTI, bacteremia, and acute CVA. Plan: - Continuing abx, fluids, and CMP trending for electrolyte abnormalities/as needed repletion. Will re-assess plan depending on family meeting regarding abx regimen. - Supportive care > Ordered q4 oral care due to mouth being apparently open when sleeping/possibly at baseline > Continue thickened liquid/pureed diet with aspiration precautions: only upright feeds, HOB no lower than 30deg when not eating #Urinary tract infection: Assessment: UA results showed Pseudomonas and ESBL E coli, likely catheter associated and expected given chronic hx of recurrent UTIs. Plan: - New Martinez catheter placed on 01/04/25 given bacteriuria. - Continue monitor Is and Os - 0.66 mL/kg/day UOP today - Continue abx as above. #Back pain, chronic: Assessment: pt has a hx of lumbar discitis/osteomyelitis in October of this year Plan: - Repeat lumbar MRI during hospitalization negative for abscess formation. - Continue Acetaminophen for pain control. #MSK Strain | Cramps Assessment:Was having Charley Horses/muscle cramps at bedside yesterday likely secondary due to lack of ambulation, malnutrition/dehydration, and/or due to electrolyte abnormalities. Mg, CK, and K were WNL and 1 g of IV mag of repletion. LRs are currently ongoing at 80 mL/hr Plan: - Resolved #Hypocalcemia Assessment: He has had a downtrending Ca level the past few days, currently 8.1. He appears stable clinically right now with a negative Chvostek's sign. Possibly secondary to dry status and decreased PO intake, difficult to assess true calcium level given no current albumin level. Plan: - Draw CMP with morning labs to measure albumin and assess for corrected Ca level. - Consider Ca repletion if needed based on morning labs Admission and Anticipated Discharge Date Admission Date: December 30, 2024 Supervising Physician Co-Signing Physician Notes I personally examined the patient and verified brandon points of history and exam, discussed case, and agree with decision making and plan documented by Dr. Escobedo and Carline Hernandez MS IV. Patient remains on maximal antimicrobial fluids IV daptomycin, IV ceftaroline, and vancomycin (prophylaxis) for persistent bacteremia with likely multiple sources. Repeat blood cultures 01/12/25 #1/2 positive gram + cocci. ID following. Continue IV antibiotics. Consider hydromorphone for pain control if needed, patient gets nausea and vomiting with morphine. Family discussing goals of care with medical team and palliative team, they are hopeful that patient's daughter can spend some time with him when she arrives in [place] on 01/16/25. Subjective No significant changes in examination findings compared to yesterday. No overnight events or new concerns have been reported. Review of Systems Review of Systems: As per HPI Physical Exam Physical Exam: General: Does not appear in acute distress. HEENT: Head is normocephalic and atraumatic. PERRLA. No cervical lymphadenopathy. CV: S1 and S2 sounds present. RRR. No murmurs, rubs, or gallops. Resp: CTA B/L. No rales, wheezing, or rhonchi. GI: Normoactive bowel sounds. No tenderness to palpation. MSK: No peripheral edema. No abnormal lesions visualized. Pads on heels in place for wound prevention. Chvostek's sign negative. Psych: Hard to interpret his words most of the time, unable to assess psych status, but does appear cooperative and have appropriate mood and affect. Results & Data Results & Data Vital Signs (Past 12 Hours) Vital Signs Temp Pulse Resp BP Pulse Ox O2 Del Method 01/12/25 23:37 36.4 C L 84 22 110/73 95 Room Air 01/12/25 20:15 Room Air (1) Bacterial endocarditis Chronicity: acute Qualified Code(s): I33.0 - Acute and subacute infective endocarditis"
--- NOTE | 2025-01-13 12:39 | Infectious Disease Progress Nt ---
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 diff Impression: Keith Lopez is a 84 yo M resident of [facility], nonverbal, with h/o prior CVA, dementia, seizure, chronic indwelling martinez, recurrent UTIs, paroxysmal atrial tachycardia, bicuspid valve s/p aortic valve replacement/proximal aortic aneurysm repair 2013, left hip replacement in 2022, HTN, prior C. diff infection 07/2023 with recurrence 08/2023, admission 09/12-09/23/24 with back pain with progressive bl LE weakness x few weeks f/w VRE faecium bacteremia (T12-L1 discitis/OM, suspected PVE since MOIZ deferred, TTE neg) on dapto/ampicillin x 6wks (anticipated end 10/27). He was readmitted 10/26-11/09/24 with recurrent E faecium bacteremia while on dapto/ampicillin (10/26, 10/28), acute hypoxic respiratory failure, parainfluenza. During that admission, PICC was removed and catheter tip cx negative. MRI C/T/L spine without new areas of infection. TTE w ithout obvious endocarditis, but severity of mitral regurg appeared to be increased compared to prior. MOIZ deferred given GOC and ineligibility for surgery. CTA chest was performed 11/02 to assess aortic graft material for infection--per radiologist, for ideal assessment, would need to time the contrast differently, but no signs of graft infection on that CT. PICC line was replaced and he was discharged on another 6 week course of daptomycin and ampicillin through 12/13/24, with plan to switch to lifelong suppressive PO antibiotic subsequently. He was subsequently seen at [facility] for ID follow-up with plan to switch to omadacycline for PO suppression after completing IV antibiotic course. Per pt's daughter, pt was looking the best she has seen him on 12/14--sitting up straight in his wheelchair, eating on his own, without back pain. Unfortunately, there were delays with insurance approval, and he was not started on omadacycline until 12/26. He was therefore off antibiotics from 12/14- 12/25. During this time, he started getting worse, and by 12/25, he was slumped over, not as engaged, with severe back pain again. He began to have fevers along with AMS, rigors on 12/30 AM, so he presented to the ED, and was found to have recurrent E faecium bacteremia. On presentation, pt was afebrile with WBC 9.51. CTAP with contrast showed a mild constipation. CTA chest with no PE, prosthetic aortic valve, previous surgical repair of ascending aorta without residual aneurysm or dissection. MRI brain with few small acute infarcts in L cerebellum. MRI L spine without contrast showed significant interval decrease in signal abnormality at T12-L1 level from prior, which may represent resolved or resolving osteomyelitis/discitis, some residual high STIR signal change at this level suggests some mild ongoing inflammation. Pt was started on daptomycin and pip-tazo. BCx grew E faecium. UCx grew mares-S Pseudomonas and ESBL E coli. Martinez changed 01/04. TTE with bioprosthetic AV with elevated transvalvular gradient, unable to exclude vegetation involving atrial side of anterior leaflet of mitral valve or aortomitral curtain. Pt's family did not want to pursue MOIZ or surgical intervention if endocarditis was seen. Cardiology also feels pt would not be a good surgical candidate, so there was no clear benefit for MOIZ. Discussion Pt with recurrent E. 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 He presents with recurrent E. faecium bacteremia despite having been treated with dapto and ampicillin combination therapy from 09/16-12/13 (>12 weeks). The plan had been to transition to a suppressive PO antibiotic, but unfortunately due to delays in insurance approval, pt was not started on omadacycline until 12/26. TTE raises continued concern for endocarditis. MRI brain also with new small infarcts in cerebellum, could be embolic. MRI L-spine with improvement in T12-L1 findings from prior. Note that pt initially had VRE bacteremia 09/12-09/14, then vanc-sensitive E faecium bacteremia 09/15, 10/26, 10/28, 12/30. There may be different E. faecium subpopulations regardless, at this time it is uncertain whether we can trust the vanc susceptibility, and furthermore he has been on daptomycin (+ other synergy abx) which should be effective. The patient received 5d of meropenem (to cover Pseudomonas and ESBL E. coli in his urine of uncertain significance but treated for possible IV abx) which was stopped on 01/07. Pt now with persistent bacteremia from 12/30 01/10. The family's goal is to treat with another course of IV antibiotics with subsequent transition to PO suppression, until ready for hospice. Concerning that blood cultures remain positive on 01/08, indicating >1 week of persistent bacteremia, and would continue to revisit GOC discussions. On 01/11, I called the patients daughter Renita ([phone]) who has shared POA status with her mother. We discussed that her father remains bacteremic, with rapid growth of the 01/10 BCx in / bottles. We discussed that Keith has not cleared BCx for several days (although was only changed to maximal therapy with higher-dose daptomycin and ceftaroline on 01/07). This is reflective of a high burden of infection (large amount of infection), which we also can see because Keith has had multiple complications diagnosed recently (cerebellar stroke, spine infection). It is possible that he may have another serious complication, even while on antibiotic treatment. We also discussed that there are multiple ways that we can make her father comfortable the most urgent would be that he could be made impatient comfort measures. Other options discussed included transitioning to hospice at his facility if we are able to clear his blood cultures and get him there. Renita is aware that being made MANAGER PET means that medications would be given to address pain and anxiety, but that those medications would likely make her dad very sleepy. We discussed that her dad is likely to pass away very quickly after antibiotics are stopped (days, or maybe even hours not weeks/months). We talked about potentially doing a time-limited trial of antibiotics to see whether they make any improvement in the BCx (clearance, or at least the rapidity/# of bottles that are positive) and/or in her fathers mental status. We also discussed that at any point, a complication of his infection may occur, which may also prompt a change in goals of care (e.g., can change to comfort care if the patient has a stroke). She also noted that he hasnt been able to wake up thus far while in the hospital. Renita would like to talk with her mother and then will reach out to the primary team and/or palliative care if she has questions or has made a decision about next steps. Notably, pts 8/6 BCx are thus far NGTD on 01/13. While they still may return positive ultimately, it is possible that is heading toward clearance. If so, it may indeed be possible to transition the patient to hospice outside the hospital will continue to follow BCx and discuss GOC. Would continue high-dose daptomycin and ceftaroline for synergy. (Note: discussed already with ID pharmacist who recommended the higher-dose daptomycin and overrode the standard daptomycin dosing protocol). Do note that experimental therapies (oritavancin, phage therapy, etc.) and sometimes even a third agent (temporary use of linezolid) have been reported, but given this patients broader GOC situation (family already on board with hospice in the near future) and the patient being overall already on maximal standard therapy, would continue to discuss GOC. Recommendations: - Continue daptomycin 800 mg IV q24h and ceftaroline 600 mg IV q8h for synergy dosing, for persistent E. faecium bacteremia and suspected PVE/aortic graft infection - Continue vancomycin 125 mg PO daily for secondary ppx of C. diff - Obtain BCx q48h to assess for clearance. Plan to obtain BCx on 01/14 - Continue goals of care discussions - If BCx clear, then likely will need another 6 weeks of dapto plus synergy abx (either ceftaroline or ampicillin) starting from blood culture clearance. At this time, if patient clears BCx, the plan is to transition to outpatient/facility hospice ID will continue to follow. Jamaica Noriega MD, MHS Infectious Diseases [facility]/ID Connect ID Connect direct line: [phone] Admission and Anticipated Discharge Date Admission Date: December 30, 2024 Subjective Subsequent visit was provided via telemedicine using two-way real-time interactive telecommunication between the patient and the telemedicine provider. For the duration of the visit, the provider was performing the assessment from a different facility than the patient. This includesuse of bluetooth stethoscope forauscultationperformed by the telepresenter that the telemedicine provider can hear if described in the physical exam. Saw Filer contact information: Please call ID Connect Call Center . (Phone Number For Physician Use Only) After establishing a telemedicine visit, patient was: Patient was verified with two unique identifiers, Patient/authorized rep acknowledged consent and understanding and Gave permission to continue telehealth session Time Spent with Patient: Subsequent => 35 min - Afebrile - BCx from 01/12 remain NGTD - Denies any pain Physical Exam Physical Exam: Exam obtained with assistance of an in-person telepresenter General: No acute distress HEENT: Conjunctivae non-injected, sclerae anicteric, MMM, OP clear. Resp: Respirations nonlabored. Abd: Soft, nontender, nondistended. Ext: No joint warmth or effusions noted. Skin: No rashes or lesions. Neuro: Awake Psych: Pleasant, appropriate. Results & Data Vital Signs (Past 12 Hours) Vital Signs Temp Pulse Resp BP Pulse Ox O2 Del Method 01/13/25 10:35 36.5 C 85 16 135/75 92 Room Air 01/13/25 10:00 Room Air Diagnostic Findings Diagnostics: 01/01 L-spine MRI Significant interval decrease in signal abnormality at the T12-L1 level from prior, which may represent resolved or resolving osteomyelitis/discitis. Some residual high STIR signal change at this level suggest some mild ongoing inflammation. Micro Data: 01/12 BCx x2: NGTD 01/10 BCx x2: E. faecium in 4/ bottles 01/08 BCx x2: E. faecium in / bottles 01/06 BCx x2: E. faecium in 4/ bottles 01/04 BCx x2: E. faecium in 4/4 bottles 01/03 BCx x2: E. faecium in 4/4 bottles (omadacycline MARTA of 0.5) 12/30 UCx: Pseudomonas (mares-S), ESBL E coli (R cipro, levo. S erta, vicky, T MP/SMX) 12/30 BCx x2: E. faecium in 4/4 bottles (S dapto, linezolid, vanc MARTA 0.25) 11/02 BCx x2: NG 10/28 BCx x2: E. faecium in 1/4 bottles 10/27 Catheter tip cx: NG 10/26 UCx: Pseudomonas, Natacha 10/26 BCx x2: E. faecium in 4/4 bottles (S dapto MARTA 4, vanc MARTA 0.25, linezolid MARTA 1. R ampicillin. Also R to doxy, levo per conversation with micro lab) 09/15 BCx x2: E. faecium in 3/4 bottles (S dapto MARTA 2, vanc MARTA 0.5. R ampicillin) 09/14 BCx x1: VRE faecium in 2/2 bottles 09/13 BCx x2: VRE faecium in 4/4 bottles 09/12 BCx x2: VRE faecium in 4/4 bottles (S dapto MARTA 4. R vanc MARTA >16, ampicillin) Antibiotic Summary: Daptomycin 12/30 present Ceftaroline 01/07 present prior Meropenem 01/03 01/07 Pip-tazo 12/30 - 01/03
--- NOTE | 2025-01-13 13:53 | Palliative Family Discussion ---
Date of Service January 13, 2025 Patient Directed Conference Time of Meetin:30 - 13:00 Participants: Maritza Orozco AGACNP Patient participation: no Patient Support System: spouse and daughter Renita Other Healthcare Provider Participation: None Meeting Location: 3rd floor conference room Advanced Directive available: yes If yes, descriptors: Patient currently lacks decisional capacity based on the inability to convey understanding of personal PMHx, current medical condition, treatment options nor the risks / benefits/ potential outcomes of accepting/declining those options, and inability to make decisions based on such knowledge. Hospital does have written documentation of patient wishes concerning his chosen proxy for medical decisions. AD paperwork on file which was properly executed by patient on 04/30/23 designates patient's Spouse Roxana Armando ([phone]) as primary HCPOA and his daughter Radha Higginbotham ([phone]) as secondary HCPOA for all medical decisions in the event he lacks decisional capacity. Pt does require a proxy for medical decisions and given the progressively debilitating nature of dementia, I suspect this will continue through his life span. The patient's surrogate medical decision maker participated: Pt's Roxana and daughter Renita are both present and agreeable to serving as proxy for medical decisions. Legally authorized health care proxy: se above Other surrogate: n/a A family meeting was held for BRODERICK ARMANDO. This meeting was necessary for determining the appropriate course of treatment. Topics of Discussion Topics of Discussion: 1. admission course/HPI - illness trajectory 2. pt values/goals of care 3. Comfort directed care Other Content of Meetin. Opportunity given for participants to speak and ask questions. 2. Participants were assured of attention to patient comfort. 3. Reassurance provided. 4. Support was provided for informed, good-kevin decisions. 5. Emotions expressed by family were acknowledged and addressed. 6. Follow-up Outpatient: n/a 7. Plan of Care: DNR/DNI Met with pt's Roxana in conference room, with daughter Renita participating via phone. Topics discussed in layman's terms included (not limited to) pt's current hospital course, comorbidities, baseline dementia, frequent admissions for bacteremia without possibility of source control and deconditioning of chronic illness and immobility. We discussed how all these factors may work against pt in his recovery from current and future infections/sepsis. Renita shared understanding that the patient continues to have bacteremia refractory to aggressive IV antimicrobial therapy. Family questioned if pt will be able to return to [facility] on hospice. Renita shared that they are divided on "how long to continue all of this" and shared that the pt's other daughter lives in [place] and would like to see the pt before he dies. She shared concern that ID had expressed that pt may become very unstable and within hours of stopping the IV antibiotics. Renita and Roxana shared desire to continue all medications that might afford pt's other daughter "time to make it from [place] to visit before he dies". I encouraged they ask the pt's daughter look into earlier flights out of concern that the patient may acutely decompensate despite current aggressive treatment. Renita shared that they have noted an improvement in the pt's level of alertness and he has been more interactive for past two days. She shared that he is more alert, eating most of his meals when they feed him, and trying to communicate more. Renita shared that they are hopeful that this is an indication that his blood cultures may have cleared. We discussed that pt's level of alertness may wax and wane and this is may not be an accurate indicator of improvement in overall health. reinforced prior discussions of patient's recurrent bacteremia without source control as well as challenges of his underlying dementia. Discussed with family possibility that pt may be experiencing an end of life rally. When a person facing the end of life rallies, they seem to become "more stable" - may want to talk or even begin taking PO; this phenomenon is usually seen as a sudden burst of energy before . This period of perking up can be accompanied by such a notable change in mental clarity that is often referred to as terminal lucidity. This change in cognition and behavior goes against everything families learn about the physical signs that the end of life is near. It is important to note that evidence-based data is elusive, if nonexistent. Theories support that it may be a search for a final, strong connection. Also, as organs shut down, they can release a steroid like compound that briefly rouses the body - in the specific case of brain tumors, swelling occurs in the confined space of the skull. The edema shrinks as EOL care patients are weaned off food and drink, waking up the brain a bit. Families and caregivers may grasp at what seems to be a turnaround in a loved ones health, however, the EOL Rally is a hallmark pre- sign. It is not uncommon for patients to show improvement before : they may want to talk while others may become restless or act as if they need to start preparing for a trip. Some patients will become more relaxed yet remain tuned in to what is going on around them, others will show signs of physical stability when, seconds before, they seemed on the verge of letting go. A rally can last for a few moments or even days. Short or long, these temporary improvements can have a profound effect on loved ones who are keeping yang. Like a moment of clarity for someone who has dementia, a rally is one last opportunity to connect with a loved one. Each persons experience is unique and impossible to predict with total accuracy. Life is full of questions, and some of them simply are not meant to be answered. Read more: https://[email or web address]//well/cvw-ujmcdnv-iz-yaa-xz-fwvh- rallies.html Renita and Roxana were in agreement that if pending blood cultures reveal ongoing bacteremia, they would like to transition to comfort directed care. They would like time to discuss timing of transition to [employer]LY[employer] better with pt's other daughter, but for now request to remain on current course of treatment including IV ABx, in hopes that pt will remain stable until she arrives from [place]. If blood cultures are clear, they would like to discuss further with ID before making plans. Discussed hospice benefit: an interdisciplinary program offered by nurses, nurses aides, social workers, chaplains and a caregivers non medical for patients with a terminal condition and a life expectancy of less than 6 months. This is covered by Medicare at 100%/no out of pocket expense to patient and all meds/supplies needed by patient for the reason they are on hospice are paid for/covered by hospice. The goal is assure quality of life of the patient in their home setting (home, intermediate, inpatient hospice setting) by providing symptoms management, psychosocial and spiritual support. However, they cannot offer 24 hours care and if the family is unable to provide that care, they will have to consider personal care with out of pocket cost vs. intermediate placement. We discussed the goals of hospice as a patient service and the goals of care; we discussed EOL trajectories and transitions grace the emotional impact of realizing mortality as a concrete reality from prior abstract considerations. Pt was reassured that no matter where they are along this trajectory, they are not alone - their medical team will remain by their side through their journey. Discussed the pros/cons of accepting help when especially weakened and distressed by pain-which would also help provide relief/decrease caregiver burden/strain. We discussed that if patient is not stable for transport, he may need to stay in hospital for comfort directed care. They do have a bed hold at [facility] that Renita will be checking on today. Time Involved in Meeting: I spent 60 minutes overall addressing this case: 10 in medical data review/discussion with referring provider(s) and/or preparation for the visit 30 in direct interaction with the patient and family 30 Advance Care Planning/Goals of Care discussions as detailed above in note (must be >16min) 10 in subsequent review and synthesis of assessment and plan 10 in communicating with other providers regarding the patient's case:
[2025-01-14 06:27] LABS: Anion Gap 4.0 (3-11); Blood Urea Nitrogen 15.0 mg/dl (6-23); Calcium 8.3 mg/dl (8.6-10.3); Carbon Dioxide 28.0 mmol/L (21-32); Chloride 101.0 mmol/L (98-107); Creatinine Clr Calc Pharmacy 84.0 ml/min; Glucose 87.0 mg/dl (70-99(Fasting)); Potassium 4.0 mmol/L (3.5-5.1); Sodium 133.0 mmol/L (136-145)
--- NOTE | 2025-01-14 12:45 | Infectious Disease Progress Nt ---
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 diff Impression: Keith Lopez is a 84 yo M resident of [facility], nonverbal, with h/o prior CVA, dementia, seizure, chronic indwelling martinez, recurrent UTIs, paroxysmal atrial tachycardia, bicuspid valve s/p aortic valve replacement/proximal aortic aneurysm repair 2013, left hip replacement in 2022, HTN, prior C. diff infection 07/2023 with recurrence 08/2023, admission 09/12-09/23/24 with back pain with progressive bl LE weakness x few weeks f/w VRE faecium bacteremia (T12-L1 discitis/OM, suspected PVE since MOIZ deferred, TTE neg) on dapto/ampicillin x 6wks (anticipated end 10/27). He was readmitted 10/26-11/09/24 with recurrent E faecium bacteremia while on dapto/ampicillin (10/26, 10/28), acute hypoxic respiratory failure, parainfluenza. During that admission, PICC was removed and catheter tip cx negative. MRI C/T/L spine without new areas of infection. TTE w ithout obvious endocarditis, but severity of mitral regurg appeared to be increased compared to prior. MOIZ deferred given GOC and ineligibility for surgery. CTA chest was performed 11/02 to assess aortic graft material for infection--per radiologist, for ideal assessment, would need to time the contrast differently, but no signs of graft infection on that CT. PICC line was replaced and he was discharged on another 6 week course of daptomycin and ampicillin through 12/13/24, with plan to switch to lifelong suppressive PO antibiotic subsequently. He was subsequently seen at [facility] for ID follow-up with plan to switch to omadacycline for PO suppression after completing IV antibiotic course. Per pt's daughter, pt was looking the best she has seen him on 12/14--sitting up straight in his wheelchair, eating on his own, without back pain. Unfortunately, there were delays with insurance approval, and he was not started on omadacycline until 12/26. He was therefore off antibiotics from 12/14- 12/25. During this time, he started getting worse, and by 12/25, he was slumped over, not as engaged, with severe back pain again. He began to have fevers along with AMS, rigors on 12/30 AM, so he presented to the ED, and was found to have recurrent E faecium bacteremia. On presentation, pt was afebrile with WBC 9.51. CTAP with contrast showed a mild constipation. CTA chest with no PE, prosthetic aortic valve, previous surgical repair of ascending aorta without residual aneurysm or dissection. MRI brain with few small acute infarcts in L cerebellum. MRI L spine without contrast showed significant interval decrease in signal abnormality at T12-L1 level from prior, which may represent resolved or resolving osteomyelitis/discitis, some residual high STIR signal change at this level suggests some mild ongoing inflammation. Pt was started on daptomycin and pip-tazo. BCx grew E faecium. UCx grew mares-S Pseudomonas and ESBL E coli. Martinez changed 01/04. TTE with bioprosthetic AV with elevated transvalvular gradient, unable to exclude vegetation involving atrial side of anterior leaflet of mitral valve or aortomitral curtain. Pt's family did not want to pursue MOIZ or surgical intervention if endocarditis was seen. Cardiology also feels pt would not be a good surgical candidate, so there was no clear benefit for MOIZ. Discussion Pt with recurrent E. 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 He presents with recurrent E. faecium bacteremia despite having been treated with dapto and ampicillin combination therapy from 09/16-12/13 (>12 weeks). The plan had been to transition to a suppressive PO antibiotic, but unfortunately due to delays in insurance approval, pt was not started on omadacycline until 12/26. TTE raises continued concern for endocarditis. MRI brain also with new small infarcts in cerebellum, could be embolic. MRI L-spine with improvement in T12-L1 findings from prior. Note that pt initially had VRE bacteremia 09/12-09/14, then vanc-sensitive E faecium bacteremia 09/15, 10/26, 10/28, 12/30. There may be different E. faecium subpopulations regardless, at this time it is uncertain whether we can trust the vanc susceptibility, and furthermore he has been on daptomycin (+ other synergy abx) which should be effective. The patient also received 5d of meropenem (to cover Pseudomonas and ESBL E. coli in his urine of uncertain significance but treated for possible IV abx) which was stopped on 01/07. Pt now with persistent bacteremia from 12/30 01/12. The family's original goal for the hospitalization was to treat with another course of IV antibiotics with subsequent transition to PO suppression, until ready for hospice. On 01/11, I called the patients daughter Renita ([phone]) who has shared POA status with her mother. We discussed that her father remains bacteremic, with rapid growth of the 01/10 BCx in / bottles. We discussed that Keith has not cleared BCx for several days (although was only changed to maximal therapy with higher-dose daptomycin and ceftaroline on 01/07). This is reflective of a high burden of infection (large amount of infection), which we also can see because Keith has had multiple complications diagnosed recently (cerebellar stroke, spine infection). It is possible that he may have another serious complication, even while on antibiotic treatment. We also discussed that there are multiple ways that we can make her father comfortable the most urgent would be that he could be made impatient comfort measures. Other options discussed included transitioning to hospice at his facility if we are able to clear his blood cultures and get him there. Renita is aware that being made [employer] means that medications would be given to address pain and anxiety, but that those medications would likely make her dad very sleepy. We discussed that her dad is likely to pass away very quickly after antibiotics are stopped (days, or maybe even hours not weeks/months). We talked about potentially doing a time-limited trial of antibiotics to see whether they make any improvement in the BCx (clearance, or at least the rapidity/# of bottles that are positive) and/or in her fathers mental status. We also discussed that at any point, a complication of his infection may occur, which may also prompt a change in goals of care (e.g., can change to comfort care if the patient has a stroke). She also noted t hat he hasnt been able to wake up thus far while in the hospital. Renita would like to talk with her mother and then will reach out to the primary team and/or palliative care if she has questions or has made a decision about next steps. Notably, pts 01/12 BCx are positive in 1/4 bottles as of 01/14, with delayed growth as compared with prior. This is suggestive that the patient may be heading toward blood culture clearance. Per palliative discussion with pts family on 01/13, if the patient remains persistently bacteremic in the coming days, they may transition to inpatient [employer]. However, if the BCx are clearing and the patient continues to have improved mentation, may consider discharging on hospice. Would continue high-dose daptomycin and ceftaroline for synergy. (Note: discussed already with ID pharmacist who recommended the higher-dose daptomycin and overrode the standard daptomycin dosing protocol). Do note that experimental therapies (oritavancin, phage therapy, etc.) and sometimes even a third agent (temporary use of linezolid) have been reported, but given this patients broader GOC situation (family already on board with hospice in the near future) and the patient being overall already on maximal standard therapy for an incurable infection, would continue current abx and continue to discuss GOC. Recommendations: - Continue daptomycin 800 mg IV q24h and ceftaroline 600 mg IV q8h for synergy dosing, for persistent E. faecium bacteremia and suspected PVE/aortic graft infection - If BCx clear, then pending GOC, then anticipate a 6-week course of daptomycin plus synergy abx (either ceftaroline or ampicillin) starting from blood culture clearance. At this time, the ultimate plan is to transition to outpatient/facility hospice if possible - Continue vancomycin 125 mg PO daily for secondary ppx of C. diff - Obtain BCx q48h to assess for clearance. Last collected on 01/14 - Continue goals of care discussions ID will continue to follow. Please contact us with any questions. Over the weekend, the on-call ID provider can be reached at [phone] for urgent/time-sensitive questions. Dr. Giulia Masterson will resume care of the ID service on Friday. [place] Noriega MD, [facility] Infectious Diseases [facility]/ID Connect ID Connect direct line: [phone] Admission and Anticipated Discharge Date Admission Date: December 30, 2024 Subjective This patient recommendation is based on a telemedicine consult request which was completed asynchronously through chart review and information provided by the primary physician. The patient was not seen or examined today. The evaluation is consultative in nature and all patient care and treatment decisions can either be accepted or rejected by the patient's primary hospital-based treating physician using their own independent medical judgment for their patient. PLEASE NOTE: E-consult was performed for this visit given technical issues with the telepresenter equipment. Time Spent Reviewing Chart: 31+ minutes - Afebrile - Has been more alert - Per palliative discussion with pts family on 01/13, if the patient remains persistently bacteremic in the coming days, they may transition to inpatient [employer]. However, if the BCx are clearing and the patient continues to have improved mentation, may consider discharging on hospice. Results & Data Vital Signs (Past 12 Hours) Vital Signs Temp Pulse Resp BP Pulse Ox O2 Del Method 01/14/25 07:13 36.5 C 86 16 115/82 95 Room Air Diagnostic Findings Diagnostics: 01/01 L-spine MRI Significant interval decrease in signal abnormality at the T12-L1 level from prior, which may represent resolved or resolving osteomyelitis/discitis. Some residual high STIR signal change at this level suggest some mild ongoing inflammation. Micro Data: 01/14 BCx x2: PEND 01/12 BCx x2: E. faecium in 1/4 bottles 01/10 BCx x2: E. faecium in 4/ bottles 01/08 BCx x2: E. faecium in 4/ bottles 01/06 BCx x2: E. faecium in 4/ bottles 01/04 BCx x2: E. faecium in 4/4 bottles 01/03 BCx x2: E. faecium in 4/4 bottles (omadacycline MARTA of 0.5) 12/30 UCx: Pseudomonas (mares-S), ESBL E coli (R cipro, levo. S erta, vicky, TMP/SMX) 12/30 BCx x2: E. faecium in 4/4 bottles (S dapto, linezolid, vanc MARTA 0.25) 11/02 BCx x2: NG 10/28 BCx x2: E. faecium in 1/4 bottles 10/27 Catheter tip cx: NG 10/26 UCx: Pseudomonas, Natacha 10/26 BCx x2: E. faecium in 4/4 bottles (S dapto MARTA 4, vanc MARTA 0.25, linezolid MARTA 1. R ampicillin. Also R to doxy, levo per conversation with micro lab) 09/15 BCx x2: E. faecium in 3/4 bottles (S dapto MARTA 2, vanc MARTA 0.5. R ampicillin) 09/14 BCx x1: VRE faecium in 2/2 bottles 09/13 BCx x2: VRE faecium in 4/4 bottles 09/12 BCx x2: VRE faecium in 4/ bottles (S dapto MARTA 4. R vanc MARTA >16, ampicillin) Antibiotic Summary: Daptomycin 12/30 present Ceftaroline 01/07 present prior Meropenem 01/03 01/07 Pip-tazo 12/30 - 01/03
--- NOTE | 2025-01-14 13:05 | Palliative Care Progress Note ---
Date of Service January 14, 2025 Assessment & Plan (1) Palliative care by specialist: Plan: Palliative care will continue to follow for ongoing GOC discussions, potential RECRUITER SPECIALIST/EOL symptom mgmt and patient/family support. (2) Advance directive in chart: Plan: Patient currently lacks decisional capacity based on the inability to convey understanding of personal PMHx, current medical condition, treatment options nor the risks / benefits/ potential outcomes of accepting/declining those options, and inability to make decisions based on such knowledge. Hospital does have written documentation of patient wishes concerning his chosen proxy for medical decisions. AD paperwork on file which was properly executed by patient on 04/30/23 designates patient's Spouse Roxana Lopez ([phone]) as primary HCPOA and his daughter Radha Higginbotham ([phone]) as secondary HCPOA for all medical decisions in the event he lacks decisional capacity. Pt does require a proxy for medical decisions and given the progressively debilitating nature of dementia, I suspect this will continue through his life span. Pt's Roxana and daughter Renita are both present and agreeable to serving as proxy for medical decisions. (3) POLST (Physician Orders for Life-Sustaining Treatment): Plan: POLST form on file that indicates DNR/DNI, limited additional interventions, no artificial nutrition or hydration, and ABx as needed. (4) Counseling regarding goals of care: Plan: TODAY: Met with pt's daughter Renita at bedside from 12:30 - 13:00. She expressed concern that pt is more lethargic and difficult to awaken for meals today after one dose of ativan overnight. She is very supportive of the patient and wants to assure his comfort, but feels that he appears to be very relaxed and comfortable after each IV tylenol administration. Renita shared that they feel pt is able to understand more than he can express, and although she is concerned anxiety, she would like non-pharmacologic means of anxiolysis exhausted prior to medication administration. She requests that any sedating medications be avoided and NSAIDs be optimized prior to any opiate or benzo administration. This is a reasonable request and medically appropriate given pt's age and underlying dementia. We discussed possible addition of alternative NSAIDs for better control of pt's chronic back pain. I saw pt about one hour af ter tylenol administration and he appeared to be resting comfortably. He is subjectively more lethargic today (last ativan dose was 10hr prior to my assessment). Plan remains to be transition to RECRUITER SPECIALIST once all family has arrived and had opportunity to visit with pt. Daughter is arriving this evening and pt's son in law and grand children will be arriving over weekend. Renita said she will let attending team know when they are ready for RECRUITER SPECIALIST, she understands that if pt remains stable after transition that he may be discharged back to SNF for ongoing hospice care. We did discuss possible GIP hospice if pt decompensates or appears to be actively dying. 01/13: attending team requests palliative reengage with pt/family given persistent bacteremia despite aggressive ABx. Lengthy GOC conversation with pt's spouse and daughter Renita. Family considering transition to RECRUITER SPECIALIST, but will await results of most recent blood culture and arrival of pt's other daughter from [place], she is expected on 01/15. 01/04: Renita at bedside this morning. Discussed GOC and reviewed previous discussions with her. questions encouraged and answered. Renita confirmed p olegario for completion of current course of IV Abx per ID recs and then transition to oral ABx prophylaxis and discharge to LTC. She reinforced that for now the pt will remain DNR/DNI, but continue all other life prolonging treatments. 01/03/25: GOC discussion held with Candida, topics discussed in layman's terms included (not limited to) pt's current hospital course, comorbidities, baseline dementia, frequent admissions for bacteremia without possibility of source control and deconditioning of chronic illness and immobility. We discussed how all these factors may work against pt in his recovery from current and future infections/sepsis. Spent a substantial amount of time discussing the progressively debilitating nature of dementia. Explained that dementia is incurable and irreversible, and can include progressive/worsening memory loss, confusion, language difficulties/lack of comprehension skills/loss of verbal skills eventually, mood changes, impaired judgment, trouble with motor skills/coordination/balance issues, visual and spatial problems, hallucinations, and personality changes. The rate of progression in mixed dementia can vary widely from person to person. Factors such as the types of dementia involved, overall health, and genetics can influence the speed of progression. Some individuals experience a more gradual decline, while others may progress more rapidly through the stages. We discussed and differentiated dementia from delirium and helped family understand that they can co-exist. I reviewed Dementia is a terminal illness. Aggressive medical treatment for patients with advanced dementia is often inappropriate for medical reasons, has a low rate of success, and can have negative outcomes that hasten functional decline and . ([place] [employer] Ethics Committee and Clinical Practice and Models of Care Committee. J Am Geriatr Soc. 2014 Jan;62(8):1590-3 and Terrence SL, Zohaib JM, Kim SC, Rakan V. A national study of the location of for older persons with dementia. J Am Geriatr Soc 2005; 53(2):299-305.). Renita identified the patient as in stage 5 bordering on 6 in his dementia, although she did admit that here in the hospital he appear to be Stage 6. We discussed that in late stages of dementia, poor PO intake and decreased mobility puts patient's at higher risk of injury and infection but also makes recovery of these insults more difficult resulting in frequent ED visits and admissions. We discussed the utilization of hospice services in stages 6 and 7 to optimize patient comfort and focus on quality of life vs quantity of days. Both Renita and Roxana shared that they are thankful for the information and they realize that they need to start focus on where the patient would draw the line on continuing to prolong life. Both adamantly stated that they would not pursue a PEG tube or any "forced feedings" because these are not c/w pt wishes. They shared that they have been in touch with hospice team at [facility] and at this time they would like to start making plans toward transition to hospice care for the future. They shared that they would like to allow the pt to transition to oral ABx and see if he can have some quality of life before he again develops septicemia. Plan as above Admission and Anticipated Discharge Date Admission Date: December 30, 2024 Subjective Assessed pt at bedside today, daughter Renita at bedside. NAONE. Pt drowsy and difficult to rouse this morning, but he did recieve one dose of ativan overnight. Appears comfortable, NAD on room air. Review of Systems Review of Systems: Unobtainable due to cognitive status Physical Exam Physical Exam: sleeping, snoring but in NAD on nasal canula. Constitutional: + ill appearing, + thin and + frail appe aring; no acute distress Eyes: PERRL, conjunctivae normal, anicteric sclerae Neck: trachea midline, no thyromegaly Respiratory: normal respiratory effort, lungs clear to auscultation Cardiovascular: RRR, no murmur, no edema Gastrointestinal (Abdomen): normal bowel sounds, soft, nontender, no hepatosplenomegaly Psychiatric: Orientation: alert and oriented to person Results & Data Vital Signs (Past 12 Hours) Vital Signs Temp Pulse Resp BP Pulse Ox O2 Del Method 01/14/25 07:13 36.5 C 86 16 115/82 95 Room Air Laboratory Results Abnormal lab results 01/14/25 Range/Units 05:26 Sodium 133 L (136-145) mmol/L BUN/Creatinine Ratio 23.8 H (10-20) Calcium 8.3 L (8.6-10.3) mg/dl Diagnostic Findings Chest X-Ray 12/30/24 19:55 Exam(s): XR CXR 1 VIEW EXAM: XR Chest, 1 View CLINICAL HISTORY: Reason for exam: Sepsis. TECHNIQUE: Frontal view of the chest. COMPARISON: 11/01/2024 FINDINGS: Lungs: Lungs are well inflated with slightly prominent interstitial markings. The previously seen edema has resolved. No acute infiltrate or effusion identified. Pleural space: Unremarkable. No pneumothorax. Heart: See below. Mediastinum: Unremarkable. Normal mediastinal contour. 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 The cardiac silhouette is mildly enlarged, unchanged. No acute fracture. Upper abdomen: Unremarkable as visualized. No pneumoperitoneum under the diaphragm. IMPRESSION: 1. Lungs are well inflated with slightly prominent interstitial markings. The previously seen edema has resolved. No acute infiltrate or effusion identified. 2. 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 The cardiac silhouette is mildly enlarged, unchanged. Electronically signed by: Slick Cain MD 12/30/24 20:[address] 12/30/24 19:55 Exam(s): CT HEAD Without Contrast EXAM: CT Head Without Intravenous Contrast CLINICAL HISTORY: Reason for exam: stroke. TECHNIQUE: Axial computed tomography images of the head/brain without intravenous contrast. CTDI is 36 mGy and DLP is 1165 mGy-cm. Automated exposure control was utilized for the study. A dose lowering technique was utilized adhering to the principles of ALARA. COMPARISON: No relevant prior studies available. FINDINGS: Brain: Mild cerebral atrophy and periventricular white matter low density consistent with chronic small vessel disease and/or senescent changes. No acute large vessel infarct or intracranial hemorrhage is seen. Ventricles: Mildly dilated. No mass or hemorrhage. Bones/joints: Unremarkable. No acute fracture. Soft tissues: Unremarkable. Sinuses: Unremarkable as visualized. No acute sinusitis. Mastoid air cells: Unremarkable as visualized. No mastoid effusion. IMPRESSION: Mild cerebral atrophy and periventricular white matter low density consistent with chronic small vessel disease and/or senescent changes. No acute large vessel infarct or intracranial hemorrhage is seen. Electronically signed by: Slick Cain MD 12/30/24 21:00 PM Head CTA 12/30/24 19:55 Exam(s): CTA HEAD With Contrast EXAM: CT Head With Intravenous Contrast CLINICAL HISTORY: Reason for exam: stroke. TECHNIQUE: Axial computed tomographic images of the head with intravenous contrast. CTDI is the 36 mGy and DLP is 1165 mGy-cm. Automated exposure control was utilized for the study. A dose lowering technique was utilized adhering to the principles of ALARA. CONTRAST: Information not available. Critical stroke study. COMPARISON: Precontrast study from today. FINDINGS: Right internal carotid artery: Calcified plaque causing 20% stenosis of the distal right internal carotid artery. No aneurysm. Right anterior cerebral artery: Unremarkable. No occlusion or significant stenosis. No aneurysm. Right middle cerebral artery: Unremarkable. No occlusion or significant stenosis. No aneurysm. Right posterior cerebral artery: Unremarkable. No occlusion or significant stenosis. No aneurysm. Right vertebral artery: The distal vertebral arteries are tortuous but widely patent. Left internal carotid artery: Calcified plaque causing 25% stenosis of the distal left internal carotid artery. No aneurysm. Left anterior cerebral artery: Unremarkable. No occlusion or significant stenosis. No aneurysm. Left middle cerebral artery: Unremarkable. No occlusion or significant stenosis. No aneurysm. Left posterior cerebral artery: Unremarkable. No occlusion or significant stenosis. No aneurysm. Left vertebral artery: See above. Basilar artery: The basilar artery is mildly tortuous but widely patent. No occlusion or significant stenosis. No aneurysm. IMPRESSION: 1. Up to 25% stenosis of the distal internal carotid arteries bilaterally. 2. The anterior, middle, and posterior cerebral arteries are within normal limits. No aneurysm, vascular malformation, or large vessel occlusion is identified. Electronically signed by: Slick Cain MD 12/30/24 21:09 PM Neck CTA 12/30/24 19:55 Exam(s): CTA NECK With Contrast EXAM: CT Neck With Intravenous Contrast CLINICAL HISTORY: Reason for exam: Stroke. TECHNIQUE: Routine carotid CT protocol was performed with intravenous contrast. NASCET criteria using the distal ICAs for comparison were used for evaluation of stenoses. CTDI is 36 mGy and DLP is 1165 mGy-cm. Automated exposure control was utilized for the study. A dose lowering technique was utilized adhering to the principles of ALARA. CONTRAST: Information not available. Critical stroke study. COMPARISON: None. FINDINGS: VASCULATURE: Right common carotid artery: Calcified plaque causing 30% stenosis of the distal right common carotid artery. No dissection. Right internal carotid artery: 30% stenosis of the proximal right internal carotid artery. The distal right internal carotid artery is tortuous but widely patent. No dissection. Right external carotid artery: Unremarkable. No occlusion. Right vertebral artery: Unremarkable. No occlusion or significant stenosis. No dissection. Left common carotid artery: 25% stenosis of the distal left common carotid artery. No dissection. Left internal carotid artery: 20% stenosis of the proximal left internal carotid artery. The distal left internal carotid artery is tortuous but widely patent. No dissection. Left external carotid artery: Unremarkable. No occlusion. Left vertebral artery: Unremarkable. No occlusion or significant stenosis. No dissection. Aorta: The aortic arch is mildly calcified but nondilated. There is no aneurysm or dissection. NECK: Bones/joints: Mild multilevel degenerative disc disease and facet arthrosis throughout the cervical spine. No acute fracture or subluxation is seen. Soft tissues: Unremarkable. Lung apices: Clear. CAROTID STENOSIS REFERENCE USING NASCET CRITERIA: % ICA stenosis = (1 - narrowest ICA diameter/diameter of distal cervical ICA) x 100. Mild - <50% stenosis. Moderate - 50-69% stenosis. Severe - 70-94% stenosis. Near occlusion - 95-99% stenosis. Occluded - 100% stenosis. IMPRESSION: 1. 30% stenosis of the proximal right internal carotid artery. 2. 20% stenosis of the proximal left internal carotid artery. Electronically signed by: Slick Cain MD 12/30/24 21:03 PM Abdomen/Pelvis CT 12/30/24 20:01 Exam(s): CT ABDOMEN + PELVIS With Contrast IV Amt: 119ml optiray 320 EXAM: CT Abdomen and Pelvis With Intravenous Contrast CLINICAL HISTORY: Reason for exam: ams. TECHNIQUE: Axial computed tomography images of the abdomen and pelvis with intravenous contrast. CTDI is 36 mGy and DLP is 1165 mGy-cm. Automated exposure control was utilized for the study. A dose lowering technique was utilized adhering to the principles of ALARA. CONTRAST: Patient received 119ml optiray 320 of IV contrast COMPARISON: No relevant prior studies available. FINDINGS: Lung bases: Unremarkable. No mass. No consolidation. ABDOMEN: Liver: Unremarkable. No mass. Gallbladder and bile ducts: Unremarkable. No calcified stones. No ductal dilation. Pancreas: Unremarkable. No mass. No ductal dilation. Spleen: Unremarkable. No splenomegaly. Adrenals: Unremarkable. No mass. Kidneys and ureters: 2.9 cm simple cysts in the right kidney. No follow-up is required. No hydronephrosis. Stomach and bowel: Bowel loops are nondilated. There is a relatively large amount of stool in the right colon measuring up to 7 cm suggesting possible mild constipation. No pneumoperitoneum, free fluid, or acute inflammatory changes are seen involving the bowel. No mucosal thickening. PELVIS: Appendix: No findings to suggest acute appendicitis. Bladder: The urinary bladder is decompressed by [place] catheter and otherwise unremarkable. Reproductive: Unremarkable as visualized. ABDOMEN and PELVIS: Intraperitoneal space: See above. Bones/joints: Metal artifact from left hip arthroplasty. There are [id number] osteoarthritic changes of the right hip. No hip or pelvic fracture is seen. [id number] degenerative changes in the lumbar spine including spondylolysis at L5 without spondylolisthesis. No acute fracture is seen. No dislocation. Soft tissues: Unremarkable. Vasculature: The abdominal aorta is moderately calcified but nondilated. There is no aneurysm or dissection. Lymph nodes: Unremarkable. No enlarged lymph nodes. IMPRESSION: Bowel loops are nondilated. There is a relatively large amount of stool in the right colon measuring up to 7 cm suggesting possible mild constipation. No pneumoperitoneum, free fluid, or acute inflammatory changes are seen involving the bowel. Electronically signed by: Slick Cain MD 12/30/24 21:37 PM Chest CTA 12/30/24 20:01 Exam(s): CTA CHEST IV Amt: 119ml optiray 320 EXAM: CT Angiography Chest With Intravenous Contrast CLINICAL HISTORY: Reason for exam: PE. TECHNIQUE: Axial computed tomographic angiography images of the chest with intravenous contrast. CTDI is 36 mGy and DLP is 1165 mGy-cm. Automated exposure control was utilized for the study. A dose lowering technique was utilized adhering to the principles of ALARA. MIP reconstructed images were created and reviewed. COMPARISON: No relevant prior studies available. FINDINGS: Pulmonary arteries: The pulmonary arterial tree is well opacified with contrast. No pulmonary emboli are identified. Aorta: The thoracic aorta is mildly calcified. There is a prosthetic aortic valve with 4.5 cm ectasia of the aortic root. There are calcified suture lines indicating previous surgical repair of the ascending aorta without residual aneurysm or dissection. The descending thoracic aorta is nondilated. Lungs: Scattered linear densities in both lung bases consistent with subsegmental atelectasis. Some component of edema and fibrosis may also be present. No mass. Pleural space: Unremarkable. No significant effusion. No pneumothorax. Heart: The heart is mildly enlarged. No pericardial effusion is seen. No evidence of RV dysfunction. Bones/joints: Mild multilevel degenerative changes throughout the spine. No acute fracture or destructive bone lesion is seen. No dislocation. Soft tissues: Unremarkable. Lymph nodes: Unremarkable. No enlarged lymph nodes. IMPRESSION: 1. The thoracic aorta is mildly calcified. There is a prosthetic aortic valve with 4.5 cm ectasia of the aortic root. There are calcified suture lines indicating previous surgical repair of the ascending aorta without residual aneurysm or dissection. The descending thoracic aorta is nondilated. 2. Scattered linear densities in both lung bases consistent with subsegmental atelectasis. Some component of edema and fibrosis may also be present. 3. The pulmonary arterial tree is well opacified with contrast. No pulmonary emboli are identified. Electronically signed by: Slick Cain MD 12/30/24 21:44 PM Brain MRI 12/30/24 22:37 EXAM: MR brain seizure wo/w con CLINICAL HISTORY: unresponsive, rule out CVA TECHNIQUE: Multisequential and multiplanar images of the brain were submitted for review without and with contrast. COMPARISON: CT, 07/11/2024 16:12:00 [employer]TRACTOR T[employer] RAW STOCK FINDINGS: Few small T2/FLAIR hyperintensities with DWI restriction seen in left cerebellum. Generalized parenchymal atrophy is appreciated. Scattered foci of increased T2/FLAIR signal abnormality are identified within the bilateral periventricular and subcortical white matter, and are most commonly associated with chronic small vessel ischemic disease. No focal parenchymal lesions are seen. No intracranial hemorrhage, mass effect, midline shift, extra-axial collection, or hydrocephalus is identified. Ventricles, sulci, and basal cisterns are symmetric and normal in size and configuration. Midline structures including the pituitary gland, corpus callosum, pineal region, and brainstem are unremarkable. No evidence of any enhancing mass or abnormal enhancement seen. The craniovertebral junction is within normal limits. No calvarial abnormalities are identified. The paranasal sinuses and mastoid air cells are clear. Orbital structures are unremarkable. Appropriate flow voids are present in the visualized intracranial vessels. IMPRESSION: 1. 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 New finding 2. 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 Electronically signed by Steve Cody 12-31-2024 03:04 AM Lumbar Spine MRI 01/01/25 12:10 Lumbar spine MRI without IV contrast History: History of lumbar infection Comparison: MRI from September 17, 2024 Technique: Sagittal T1-weighted, sagittal STIR, 3D volumetric axial and sagittal reconstructed T2-weighted images of the lumbar spine were obtained without intravenous contrast. Findings: There are 5 lumbar-type vertebrae assumed for the purposes of this dictation. The tip of the conus medullaris is at L1. Normal lumbar vertebral alignment. There is multilevel degenerative disc height loss, which is similar to prior, and overall moderate at the T12-L1, L1-L2, L4-L5, and L5-S1 levels. There may be mild disc height loss at L2-L3 and L3-L4. Significant interval decrease in the signal abnormality at the T12-L1 endplates, with both decreased size as well as signal intensity from prior. There continues to be subtle low T1 signal abnormality, especially the inferior T12 endplate. There are a few tiny foci of high signal intensity within the disc space, otherwise the diffuse high signal abnormality on prior is resolved. There is no abnormality in the spinal canal at this level. Similar-appearing multilevel degenerative changes, including small disc bulges, facet arthropathy and ligamentum flavum thickening. There is again moderate right and severe left neuroforaminal narrowing at L3-4, severe right and moderate to severe left neuroforaminal narrowing at L4-5, and moderate to severe bilateral neuroforaminal narrowing at L5-S1. Paraspinous tissues are within normal limits. Note: The following findings are common in the absence of low back pain and while we report their presence, they must be interpreted with caution and in the context of the clinical situation. (Reference -Bryank et al, Spine 2001) Findings (prevalence in patients without low back pain) Disc degeneration (decreased T2 signal, height loss, bulge) (91%) Disc T2 - signal loss (83%) Disc height loss (56%) Disc bulge (64%) Disc protrusion (32%) Annular tear (38%). Impression: Significant interval decrease in signal abnormality at the T12-L1 level from prior, which may represent resolved or resolving osteomyelitis/discitis. Some residual high STIR signal change at this level suggest some mild ongoing inflammation. Electronically signed by Felix Pal 01-01-2025 2:25 PM Medications Administered Current Inpatient Medications Aspirin (Aspirin 81 Mg Ectab) 81 mg PO QAM BRENDA Stop: 01/30/25 08:59 Last Admin: 01/14/25 09:57 Dose: 81 mg Miguel Syrup (Miguel Syrup 5 Ml Udp) 5 ml PO DAILY BRENDA Stop: 01/28/25 15:59 Last Admin: 01/14/25 09:57 Dose: 5 ml Daptomycin 800 mg/ Syringe 16 mls @ 8 mls/min IV Q24H BRENDA; Protocol Stop: 01/21/25 20:59 Last Admin: 01/13/25 20:32 Dose: 8 mls/min Ceftaroline Fosamil 600 mg/ (Sodium Chloride) 270 mls @ 250 mls/hr IV Q8H BRENDA; Protocol Stop: 01/21/25 17:59 Last Infusion: 01/14/25 10:55 Dose: Infused Acetaminophen (Ofirmev) 1,000 mg in 100 mls @ 400 mls/hr IV Q8H BRENDA Stop: 01/20/25 13:59 Last Infusion: 01/14/25 11:33 Dose: Infused Lidocaine (Lidocaine 5% 1 Patch) 1 patch TD QAM BRENDA Stop: 02/04/25 08:59 Last Admin: 01/14/25 11:11 Dose: 1 patch Lorazepam (Lorazepam 2 Mg/1 Ml Vial) 0.5 mg IV Q6H PRN PRN Reason: Anxiety/Agitation Stop: 02/01/25 14:43 Last Admin: 01/14/25 02:28 Dose: 0.5 mg Miscellaneous (Remove Lidoderm Patch) 1 each N/A DAILY@2100 [facility] Stop: 02/04/25 20:59 Last Admin: 01/13/25 20:33 Dose: 1 each Ondansetron HCl (Ondansetron Inj 2 Mg/Ml 2 Ml Vial) 4 mg IV Q6H PRN PRN Reason: Nausea Stop: 01/30/25 00:21 Pantoprazole Sodium (Pantoprazole 40 Mg Tab) 40 mg PO QAM [facility] Stop: 02/01/25 08:59 Last Admin: 01/14/25 09:58 Dose: 40 mg Vancomycin HCl (Vancomycin Hcl 125 Mg/2.5ml Soln) 125 mg PO DAILY [facility] Stop: 01/28/25 15:59 Last Admin: 01/14/25 09:57 Dose: 125 mg PG Care Time/CCT Total # of Minutes Spent Total Time Spent with Patient: Total time spent is greater than 50% in coordination of care (as documented) at patient's floor/unit and/or counseling patient: Advanced Care Planning 38179 Advanced Care Planning 30 Min C[place] [address] SUB INP/OBS CARE 2/35MIN Patient Type Established History Expanded Problem Focused Exam Expanded Problem Focused Medical Decision Making Moderate Complexity Diagnoses Palliative care by specialist Z51.5 Advance directive in chart Z78.9 POLST (Physician Orders for Life-Sustaining Treatment) Z78.9 Counseling regarding goals of care Z71.89 Additional Codes Advanced Care Planning - 91282 Advanced Care Planning 30 Min: 14033 Advanced Care Planning 30 Min ([id number])
--- NOTE | 2025-01-14 15:24 | Hospitalist Progress Note ---
"Date of Service January 14, 2025 Assessment & Plan (1) Acute bacterial endocarditis: Plan Plan Keith Lopez is a 84 yo M resident of [facility], nonverbal, with h/o prior CVA, severe dementia, seizure, chronic indwelling martinez, recurrent UTIs, paroxysmal atrial tachycardia, bicuspid valve s/p aortic valve replacement/proximal aortic aneurysm repair, left hip replacement and recurrent infections. He presented with AMS and fever and was found to have recurrent E faecium bacteremia, including in 01/06/25 blood cultures and G+ cocci in chain on 01/08/25 cx. Requires continued inpatient monitoring and management with IV abx. As of today, he has had persistent bacteremia (today's BC pending) despite on being on broad- spectrum abx and with a history of recurrent UTIs with suspected bacterial endocarditis. Conversations with family on goals of care are ongoing and ID is concerned with pt. being able to clear the infectious given the extensive amount of time pt. has already been on abx, in addition to new CVA, and worsened mental status. Blood cultures from (01/12) were positive for gram + cocci . Has ongoing concerns for poor prognosis. #Suspected bacterial endocarditis #Enterococcus faecium bacteremia Assessment: Blood cultures on admission show growth of Enterococcus faecium, latest BC from yesterday showed similar growth of gram positive cocci. Urine is growing Pseudomonas and ESBL E coli. Prognosis appears poor due to persistent bacteremia with recurrent admission for management of infections (some with resistant organisms) and advanced dementia. Plan: - Discussed with the family about goals of care. Will continue abx regimen in the meantime. - Continue following ID recs of ceftaroline 600 mg IV q8h per ID recommendation, continuing Daptomycin from 12/30/24 - Continue oral vancomycin for C. diff prophylaxis given hx of C.diff infection -Palliative care discussion (01/13)For detail, refer Palliative notes -Blood Culture Sent today #Hyponatremia, acute Assessment: Has had mild hyponatremia, likely secondary to hypovolemia and decreased PO intake, stable - Continuing light maintenance NS at 80cc/hr, re-assess depending on trending labs and clinical status #Embolic stroke Assessment: MRI brain shows multiple embolic CVA noted in the left cerebellar lobe. Suspected embolic process from endocarditis. CTA shows 30% stenosis in the right ICA, and 20% stenosis in the left ICA. Plan: - Supportive care #Metabolic encephalopathy Assessment: Pt. presented with metabolic encephalopathy likely on admission given AMS and fevers leading up to ED visit. Given infectious presentation and blood cultures + UA showing signs of infection, encephalopathy likely due to CAUTI, bacteremia, and acute CVA. Plan: - Continuing abx, fluids, and CMP trending for electrolyte abnormalities/as needed repletion. Will re-assess plan depending on family meeting regarding abx regimen. - Supportive care > Ordered q4 oral care due to mouth being apparently open when sleeping/possibly at baseline > Continue thickened liquid/pureed diet with aspiration precautions: only upright feeds, HOB no lower than 30deg when not eating #Urinary tract infection: Assessment: UA results showed Pseudomonas and ESBL E coli, likely catheter associated and expected given chronic hx of recurrent UTIs. Plan: - New Martinez catheter placed on 01/04/25 given bacteriuria. - Continue monitor Is and Os - 0.66 mL/kg/day UOP today - Continue abx as above. #Back pain, chronic: Assessment: pt has a hx of lumbar discitis/osteomyelitis in October of this year Plan: - Repeat lumbar MRI during hospitalization negative for abscess formation. - Continue Acetaminophen for pain control. #MSK Strain | Cramps Assessment:Was having Charley Horses/muscle cramps at bedside yesterday likely secondary due to lack of ambulation, malnutrition/dehydration, and/or due to electrolyte abnormalities. Mg, CK, and K were WNL and 1 g of IV mag of repletion. LRs are currently ongoing at 80 mL/hr Plan: - Resolved #Hypocalcemia Assessment: He has had a downtrending Ca level the past few days, currently 8.1. He appears stable clinically right now with a negative Chvostek's sign. Possibly secondary to dry status and decreased PO intake, difficult to assess true calcium level given no current albumin level. Plan: - Draw CMP with morning labs to measure albumin and assess for corrected Ca level. - Consider Ca repletion if needed based on morning labs Admission and Anticipated Discharge Date Admission Date: December 30, 2024 Supervising Physician Co-Signing Physician Notes Attending attestation Pt seen and examined in concert with Dr. Escobedo. In agreement with the documented findings as noted in the resident documentation with any exceptions or additions as noted here. Patient's daughter at bedside. Patient nonverbal but tolerating POI while daughter supports. Extensive conversation today re: goals of care in the short term. Agreeable to likely transition to [employer] following family arrival tomorrow and Friday, but reviewed as well with decompensation to transition to [employer] at that time. VS as noted. On examination, S1/S2 nl RRR no MCG. scattered coarse BS. Abd NT/ND BS+ve Bacteremia w/ suspected bacterial endocarditis - continue abx therapy including vanc prophylaxis. ID and palliative consult appreciated for goals of care. Else see resident documentation as noted. Subjective Assessed pt at bedside today, daughter Renita at bedside. NAONE. Pt drowsy and difficult to rouse this morning, but he did recieve one dose of ativan overnight. Appears comfortable, NAD on room air. Review of Systems Review of Systems: As per HPI Physical Exam Physical Exam: General: Does not appear in acute distress. HEENT: Head is normocephalic and atraumatic. PERRLA. No cervical lymphadenopathy. CV: S1 and S2 sounds present. RRR. No murmurs, rubs, or gallops. Resp: CTA B/L. No rales, wheezing, or rhonchi. GI: Normoactive bowel sounds. No tenderness to palpation. MSK: No peripheral edema. No abnormal lesions visualized. Pads on heels in place for wound prevention. Chvostek's sign negative. Psych: Hard to interpret his words most of the time, unable to assess psych status, but does appear cooperative and have appropriate mood and affect. Results & Data Results & Data Vital Signs (Past 12 Hours) Vital Signs Temp Pulse Resp BP Pulse Ox O2 Del Method 01/14/25 07:13 36.5 C 86 16 115/82 95 Room Air Resident Activity Tracking Resident Involvement: Resident Care Provided Care Provided: Adult Hospital Medicine"
[2025-01-14] MEDS: KETOROLAC TROMETHAMINE 15 MG/ML VIAL IV PRN (23:20)
--- NOTE | 2025-01-15 14:03 | Hospitalist Progress Note ---
"Date of Service January 15, 2025 Assessment & Plan (1) Palliative care by specialist: (2) POLST (Physician Orders for Life-Sustaining Treatment): Plan Plan Keith Lopez is a 84 yo M resident of [facility], nonverbal, with h/o prior CVA, severe dementia, seizure, chronic indwelling martinez, recurrent UTIs, paroxysmal atrial tachycardia, bicuspid valve s/p aortic valve replacement/proximal aortic aneurysm repair, left hip replacement and recurrent infections. He presented with AMS and fever and was found to have recurrent E faecium bacteremia, including in 01/06/25 blood cultures and G+ cocci in chain on 01/08/25 cx. Requires continued inpatient monitoring and management with IV abx. As of today, he has had persistent bacteremia (today's BC pending) despite on being on broad- spectrum abx and with a history of recurrent UTIs with suspected bacterial endocarditis. Conversations with family on goals of care are ongoing and ID is concerned with pt. being able to clear the infectious given the extensive amount of time pt. has already been on abx, in addition to new CVA, and worsened mental status. Blood cultures from (01/12) were positive for gram + cocci . Has ongoing concerns for poor prognosis. #Suspected bacterial endocarditis #Enterococcus faecium bacteremia Assessment: Blood cultures on admission show growth of Enterococcus faecium, latest BC from yesterday showed similar growth of gram positive cocci. Urine is growing Pseudomonas and ESBL E coli. Prognosis appears poor due to persistent bacteremia with recurrent admission for management of infections (some with resistant organisms) and advanced dementia. Plan: - Discussed with the family about goals of care. Will continue abx regimen in the meantime. - Continue following ID recs of ceftaroline 600 mg IV q8h per ID recommendation, continuing Daptomycin from 12/30/24 - Continue oral vancomycin for C. diff prophylaxis given hx of C.diff infection -Palliative care discussion (01/13)For detail, refer Palliative notes -Blood Culture pending from 01/14 #Hyponatremia, acute Assessment: Has had mild hyponatremia, likely secondary to hypovolemia and decreased PO intake, stable - Continuing light maintenance NS at 80cc/hr, re-assess depending on trending labs and clinical status #Embolic stroke Assessment: MRI brain shows multiple embolic CVA noted in the left cerebellar lobe. Suspected embolic process from endocarditis. CTA shows 30% stenosis in the right ICA, and 20% stenosis in the left ICA. Plan: - Supportive care #Metabolic encephalopathy Assessment: Pt. presented with metabolic encephalopathy likely on admission given AMS and fevers leading up to ED visit. Given infectious presentation and blood cultures + UA showing signs of infection, encephalopathy likely due to CAUTI, bacteremia, and acute CVA. Plan: - Continuing abx, fluids, and CMP trending for electrolyte abnormalities/as needed repletion. Will re-assess plan depending on family meeting regarding abx regimen. - Supportive care > Ordered q4 oral care due to mouth being apparently open when sleeping/possibly at baseline > Continue thickened liquid/pureed diet with aspiration precautions: only upright feeds, HOB no lower than 30deg when not eating #Urinary tract infection: Assessment: UA results showed Pseudomonas and ESBL E coli, likely catheter associated and expected given chronic hx of recurrent UTIs. Plan: - New Martinez catheter placed on 01/04/25 given bacteriuria. - Continue monitor Is and Os - 0.66 mL/kg/day UOP today - Continue abx as above. #Back pain, chronic: Assessment: pt has a hx of lumbar discitis/osteomyelitis in October of this year Plan: - Repeat lumbar MRI during hospitalization negative for abscess formation. - Continue Acetaminophen for pain control. #MSK Strain | Cramps Assessment:Was having Charley Horses/muscle cramps at bedside yesterday likely secondary due to lack of ambulation, malnutrition/dehydration, and/or due to electrolyte abnormalities. Mg, CK, and K were WNL and 1 g of IV mag of repletion. LRs are currently ongoing at 80 mL/hr Plan: - Resolved #Hypocalcemia Assessment: He has had a downtrending Ca level the past few days, currently 8.1. He appears stable clinically right now with a negative Chvostek's sign. Possibly secondary to dry status and decreased PO intake, difficult to assess true calcium level given no current albumin level. Plan: - Draw CMP with morning labs to measure albumin and assess for corrected Ca level. - Consider Ca repletion if needed based on morning labs Admission and Anticipated Discharge Date Admission Date: December 30, 2024 Supervising Physician Co-Signing Physician Notes Attending attestation Pt seen and examined in concert with Dr. Escobedo. In agreement with the documented findings as noted in the resident documentation with any exceptions or additions as noted here. Patient's family at bedside. Patient nonverbal but tolerating POI with family support. No acute complaint from nonverbal patient. However with some visible motor agitation likely signaling discomfort, nursing called for current pain medication. Ongoing conversation today re: goals of care based on current diagnoses and prognosis. VS as noted. On examination, S1/S2 nl RRR no MCG. scattered coarse BS. Abd NT/ND BS+ve Bacteremia w/ bacterial endocarditis - continue abx therapy including vanc prophylaxis. ID and palliative consult appreciated for goals of care. Agitation and lower back pain - will continue APAP and toradol for pain control as family is reasonably hesitant to sedate with opioids or benzodiazepines. Reviewed plans for ongoing care including premedicating for painful interventions such as repositioning and instances in which opioid medication w ould be appropriate including failure of current pain regimen. Else see resident documentation as noted. Subjective Assessed pt at bedside today, daughter Renita at bedside. NAONE. Pt drowsy and difficult to rouse this morning, but he did recieve one dose of ativan overnight. Appears comfortable, NAD on room air. Review of Systems Review of Systems: As per HPI Physical Exam Physical Exam: General: Does not appear in acute distress. HEENT: Head is normocephalic and atraumatic. PERRLA. No cervical lymphadenopathy. CV: S1 and S2 sounds present. RRR. No murmurs, rubs, or gallops. Resp: CTA B/L. No rales, wheezing, or rhonchi. GI: Normoactive bowel sounds. No tenderness to palpation. MSK: No peripheral edema. No abnormal lesions visualized. Pads on heels in place for wound prevention. Chvostek's sign negative. Psych: Hard to interpret his words most of the time, unable to assess psych status, but does appear cooperative and have appropriate mood and affect."
--- NOTE | 2025-01-16 06:55 | Hospitalist Progress Note ---
Date of Service January 16, 2025 Assessment & Plan (1) POLST (Physician Orders for Life-Sustaining Treatment): (2) Palliative care by specialist: Plan Plan Keith Lopez is a 84 yo M resident of [place], nonverbal, with h/o prior CVA, severe dementia, seizure, chronic indwelling martinez, recurrent UTIs, paroxysmal atrial tachycardia, bicuspid valve s/p aortic valve replacement/proximal aortic aneurysm repair, left hip replacement and recurrent infections. He presented with AMS and fever and was found to have recurrent E faecium bacteremia, including in 01/06/25 blood cultures and G+ cocci in chain on 01/08/25 cx. Patient is On Comfort measures Only from today. Discussed with the family. Pain Control with Tylenol and Toradol Admission and Anticipated Discharge Date Admission Date: December 30, 2024 Supervising Physician Co-Signing Physician Notes Attending attestation Pt seen and examined in concert with Dr. Escobedo. In agreement with the documented findings as noted in the resident documentation with any exceptions or additions as noted here. Patient's family at bedside. Patient nonverbal but tolerating POI with family support. No acute complaint from nonverbal patient. Ongoing GOC conversation below. VS as noted. On examination, S1/S2. scattered coarse BS. Abd NT/ND BS+ve Goals of care - reviewed criteria for GIP vs. hospice in outside setting. Presently, patient does not appear eminent and could be managed in outpatient setting. Communication difficulty re: CM, palliative and primary service re: intention to transition to comfort here vs. [facility] based on clinical course at time of evaluation by palliative. Counseling now, will continue d/c abx therapy, monitor until AM and consider trajectory and implications for location of medical care Bacteremia w/ bacterial endocarditis - palliative consult appreciated for goals of care. Agitation and lower back pain - will continue APAP and toradol for pain control, as well as additional SH[employer] orders Else see resident documentation as noted. Total attending physician time spent with this patient's care on this day of admission: 42 minutes. Subjective Assessed pt at bedside today, daughter Renita at bedside. NAONE. Pt drowsy and difficult to rouse this morning, but he did recieve one dose of ativan overnight. Appears comfortable, NAD on room air. Review of Systems Review of Systems: As per HPI Physical Exam Physical Exam: General: Does not appear in acute distress. HEENT: Head is normocephalic and atraumatic. PERRLA. No cervical lymphadenopathy. CV: S1 and S2 sounds present. RRR. No murmurs, rubs, or gallops. Resp: CTA B/L. No rales, wheezing, or rhonchi. GI: Normoactive bowel sounds. No tenderness to palpation. MSK: No peripheral edema. No abnormal lesions visualized. Pads on heels in place for wound prevention. Chvostek's sign negative. Psych: Hard to interpret his words most of the time, unable to assess psych status, but does appear cooperative and have appropriate mood and affect. Results & Data Results & Data Vital Signs (Past 12 Hours) Vital Signs O2 Del Method 01/15/25 20:05 Room Air
[2025-01-16] MEDS ORDERED: HYOSCYAMINE SULFATE 0.125 MG TAB SL PRN (12:25)
[2025-01-16] MEDS ORDERED: ATROPINE SULFATE 1% OP SOLN 5 ML BTL SL PRN (12:25)
[2025-01-16] MEDS ORDERED: ONDANSETRON INJ 2 MG/ML 2 ML VIAL IV PRN (12:25)
[2025-01-16] MEDS ORDERED: GLYCOPYRROLATE 0.2 MG/ML VIAL IV PRN (12:25)
--- NOTE | 2025-01-17 09:02 | Palliative Care Progress Note ---
Date of Service January 17, 2025 Assessment & Plan (1) Palliative care by specialist: Plan: Palliative care will continue to follow for ongoing GOC discussions, potential SUBWAY REPAIR SUPERVISOR/EOL symptom mgmt and patient/family support. (2) Advance directive in chart: Plan: Patient currently lacks decisional capacity based on the inability to convey understanding of personal PMHx, current medical condition, treatment options nor the risks / benefits/ potential outcomes of accepting/declining those options, and inability to make decisions based on such knowledge. Hospital does have written documentation of patient wishes concerning his chosen proxy for medical decisions. AD paperwork on file which was properly executed by patient on 04/30/23 designates patient's Spouse Roxana Lopez ([phone]) as primary HCPOA and his daughter Radha Higginbotham ([phone]) as secondary HCPOA for all medical decisions in the event he lacks decisional capacity. Pt does require a proxy for medical decisions and given the progressively debilitating nature of dementia, I suspect this will continue through his life span. Pt's Roxana and daughter Renita are both present and agreeable to serving as proxy for medical decisions. (3) POLST (Physician Orders for Life-Sustaining Treatment): Plan: POLST form on file that indicates DNR/DNI, limited additional interventions, no artificial nutrition or hydration, and ABx as needed. SUBWAY REPAIR SUPERVISOR POLST will need completed prior to discharge. (4) Counseling regarding goals of care: Plan: TODAY: Met with pt's daughters outside pt's room. Both expressed concern about plan for discharge to [facility] for ongoing hospice care. Renita shared that the pt has only off of IV antibiotics for less than 24hrs and she is concerned that he may decompensate quickly. She has requested that we observe pt longer as she has been told by all teams that he is likely to become septic and decompensate quickly. She shared that all family has been through to visit pt an d they are surprised that he would be discharged back to [facility] so soon. We discussed criteria for GIP hospice care and that pt has minimal need for comfort medications with VSS so does not currently qualify for GIP. I did share that I believe that prognosis is days to weeks at best given his persistent positive blood cultures despite aggressive IV ABx therapy. Discussed that the timng of is inprecise and often difficult to predict, but as time gets shorter there are often predictable signs of imminent . If pt transitions to active dying it would be sensible for him to remain hospitalized, particularly if he has hemodynamic decompensation. Renita shared that she is pleased with pt's level of comfort and continues to encourage avoidance of sedating agents as long as he remains comfortable with tylenol/toradol combo. 01/14: Met with pt's daughter Renita at bedside from 12:30 - 13:00. She expressed concern that pt is more lethargic and difficult to awaken for meals today after one dose of ativan overnight. She is very supportive of the patient and wants to assure his comfort, but feels that he appears to be very relaxed and comfortable after each IV tylenol administration. Renita shared that they feel pt is able to understand more than he can express, and although she is concerned anxiety, she would like non-pharmacologic means of anxiolysis exhausted prior to medication administration. She requests that any sedating medications be avoided and NSAIDs be optimized prior to any opiate or benzo administration. This is a reasonable request and medically appropriate given pt's age and underlying dementia. We discussed possible addition of alternative NSAIDs for better control of pt's chronic back pain. I saw pt about one hour after tylenol administration and he appeared to be resting comfortably. He is subjectively more lethargic today (last ativan dose was 10hr prior to my assessment). Plan remains to be transition to SUBWAY REPAIR SUPERVISOR once all family has arrived and had opportunity to visit with pt. Daughter is arriving this evening and pt's son in law and grand children will be arriving over weekend. Renita said she will le t attending team know when they are ready for SUBWAY REPAIR SUPERVISOR, she understands that if pt remains stable after transition that he may be discharged back to SNF for ongoing hospice care. We did discuss possible GIP hospice if pt decompensates or appears to be actively dying. 01/13: attending team requests palliative reengage with pt/family given persistent bacteremia despite aggressive ABx. Lengthy GOC conversation with pt's spouse and daughter Renita. Family considering transition to SUBWAY REPAIR SUPERVISOR, but will await results of most recent blood culture and arrival of pt's other daughter f favian ULRICH, she is expected on 01/15. 01/04: Renita at bedside this morning. Discussed GOC and reviewed previous discussions with her. questions encouraged and answered. Renita confirmed plan for completion of current course of IV Abx per ID recs and then transition to oral ABx prophylaxis and discharge to LTC. She reinforced that for now the pt will remain DNR/DNI, but continue all other life prolonging treatments. 01/03/25: GOC discussion held with Roxana and Renita, topics discussed in layman's terms included (not limited to) pt's current hospital course, comorbidities, baseline dementia, frequent admissions for bacteremia without possibility of source control and deconditioning of chronic illness and immobility. We discussed how all these factors may work against pt in his recovery from current and future infections/sepsis. Spent a substantial amount of time discussing the progressively debilitating nature of dementia. Explained that dementia is incurable and irreversible, and can include progressive/worsening memory loss, confusion, language difficulties/lack of comprehension skills/loss of verbal skills eventually, mood changes, impaired judgment, trouble with motor skills/coordination/balance issues, visual and spatial problems, hallucinations, and personality changes. The rate of progression in mixed dementia can vary widely from person to person. Factors such as the types of dementia involved, overall health, and genetics can influence the speed of progression. Some individuals experience a more gradual decline, while others may progress more rapidly through the stages. We discussed and differentiated dementia from delirium and helped family understand that they can co-exist. I reviewed Dementia is a terminal illness. Aggressive medical treatment for patients with advanced dementia is often inappropriate for medical reasons, has a low rate of success, and can have negative outcomes that hasten functional decline and . ([place] [employer] Ethics Committee and Clinical Practice and Models of Care Committee. J Am Geriatr Soc. 2014 Aug;62(8):1590-3 and Terrence SL, Zohaib JM, Kim SC, Mor V. A national study of the location of for older persons with dementia. J Am Geriatr Soc 2005; 53(2):299-305.). Renita identified the patient as in stage 5 bordering on 6 in his dementia, although she did admit that here in the hospital he appear to be Stage 6. We discussed that in late stages of dementia, poor PO intake and decreased mobility puts patient's at higher risk of injury and infection but also makes recovery of these insults more difficult resulting in frequent ED visits and admissions. We discussed the utilization of hospice services in stages 6 and 7 to optimize patient comfort and focus on quality of life vs quantity of days. Both Renita and Roxana shared that they are thankful for the information and they realize that they need to start focus on where the patient would draw the line on continuing to prolong life. Both adamantly stated that they would not p ursue a PEG tube or any "forced feedings" because these are not c/w pt wishes. They shared that they have been in touch with hospice team at [facility] and at this time they would like to start making plans toward transition to hospice care for the future. They shared that they would like to allow the pt to transition to oral ABx and see if he can have some quality of life before he again develops septicemia. (5) Comfort measures only status: Plan: transitioned to SUBWAY REPAIR SUPERVISOR on 01/16/25. Plan SUBWAY REPAIR SUPERVISOR Admission and Anticipated Discharge Date Admission Date: December 30, 2024 Subjective Assessed pt at bedside, he was transitioned to SUBWAY REPAIR SUPERVISOR on 01/16/25. Pt was sleeping, did not attempt to awaken in concert with comfort directed care. He appears comfortable, with minimal need for PRN medications to assure comfort. Respiratory effort normal. Pt's 2 daughters were at bedside. Review of Systems Review of Systems: Unobtainable due to cognitive status Physical Exam Physical Exam: sleeping, snoring but in NAD on nasal canula. Constitutional: + ill appearing, + thin and + frail appe aring; no acute distress Eyes: PERRL, conjunctivae normal, anicteric sclerae Neck: trachea midline, no thyromegaly Respiratory: normal respiratory effort, lungs clear to auscultation Cardiovascular: RRR, no murmur, no edema Gastrointestinal (Abdomen): normal bowel sounds, soft, nontender, no hepatosplenomegaly Psychiatric: Orientation: alert and oriented to person Results & Data Vital Signs (Past 12 Hours) Vital Signs Temp 36.9 C 01/17/25 09:32 Pulse 99 H 01/17/25 09:32 Resp 18 01/17/25 09:32 BP 100/71 01/17/25 09:32 Pulse Ox 93 01/17/25 09:32 O2 Del Method Room Air 01/17/25 09:32 O2 Flow Rate 2 01/08/25 15:39 Intake & Output 01/16/25 01/17/25 01/17/25 18:59 06:59 18:59 Intake Total 100 / 300 200 / 300 100 / 100 Output Total 76 / 577 501 / 577 Balance 24 / -277 -301 / -277 99 / 99 Weight 68 kg Intake: IV 100 / 300 200 / 300 100 / 100 Acetaminophen 1,000 mg In 100 100 / 300 200 / 300 100 / 100 ml @ 400 mls/hr IV Q8H [facility] Rx#: [id number] Ceftaroline Fosamil Acetate 600 0 / 0 mg In Sodium Chloride 0.9% 250 ml @ 250 mls/hr IV Q8H [facility] Rx# :[id number] Output: Urine Amount (Catheter) 75 / 575 500 / 575 [place]/Indwelling 75 / 575 500 / 575 # Bowel Movements Laboratory Results No further labs or diagnostics in concert with comfort directed care. Diagnostic Findings No further labs or diagnostics in concert with comfort directed care. Medications Administered Current Inpatient Medications Atropine Sulfate (Atropine Sulfate 1% Op Soln 5 Ml Btl) 4 drops SL Q1H PRN PRN Reason: Secretions or pulm congestion Stop: 02/15/25 12:24 Chlorpromazine HCl (Chlorpromazine Hcl 25 Mg Tab) 25 mg PO Q6H PRN PRN Reason: Hiccups Stop: 02/15/25 12:24 Glycopyrrolate (Glycopyrrolate 0.2 Mg/Ml Vial) 0.4 mg IV Q4H PRN PRN Reason: Rattling Secretions or Pulm Congestion Stop: 02/15/25 12:24 Hyoscyamine (Hyoscyamine Sulfate 0.125 Mg Tab) 0.125 mg SL Q4H PRN PRN Reason: Secretions or Pulm Congestion Stop: 02/15/25 12:24 Acetaminophen (Ofirmev) 1,000 mg in 100 mls @ 400 mls/hr IV Q8H [facility] Stop: 01/20/25 13:59 Last Infusion: 01/17/25 12:12 Dose: Infused Ketorolac Tromethamine (Ketorolac Tromethamine 15 Mg/Ml Vial) 15 mg IV Q6H PRN PRN Reason: Pain Stop: 01/19/25 20:10 Last Admin: 01/17/25 10:47 Dose: 15 mg Lidocaine (Lidocaine 5% 1 Patch) 1 patch TD QAM BRENDA Stop: 02/04/25 08:59 Last Admin: 01/17/25 08:46 Dose: 1 patch Lorazepam (Lorazepam 2 Mg/1 Ml Vial) 0.5 mg IV Q6H PRN PRN Reason: Anxiety/Agitation Stop: 02/01/25 14:43 Last Admin: 01/17/25 01:37 Dose: 0.5 mg Lorazepam (Lorazepam 2 Mg/1 Ml Vial) 0.5 mg IV Q4H PRN PRN Reason: Anxiety/Agitation Stop: 02/15/25 12:24 Ondansetron HCl (Ondansetron Inj 2 Mg/Ml 2 Ml Vial) 4 mg IV Q6H PRN PRN Reason: Nausea Stop: 01/30/25 00:21 Ondansetron HCl (Ondansetron Inj 2 Mg/Ml 2 Ml Vial) 4 mg IV Q4H PRN PRN Reason: Nausea &/or Vomiting Stop: 02/15/25 12:24 Pantoprazole Sodium (Pantoprazole 40 Mg Tab) 40 mg PO QAM BRENDA Stop: 02/01/25 08:59 Last Admin: 01/17/25 08:42 Dose: 40 mg PG Care Time/CCT Total # of Minutes Spent Total Time Spent with Patient: Total time spent is greater than 50% in coordination of care (as documented) at patient's floor/unit and/or counseling patient: [place] [address] SUB INP/OBS CARE 3/50MIN Patient Type Established History Expanded Problem Focused Exam Expanded Problem Focused Medical Decision Making Moderate Complexity Diagnoses Palliative care by specialist Z51.5 Advance directive in chart Z78.9 POLST (Physician Orders for Life-Sustaining Treatment) Z78.9 Counseling regarding goals of care Z71.89 Comfort measures only status Z51.5
[2025-01-17 09:35] VITALS: BP 100/71; PULSE 99; RESP 18; TEMP 98.4; O2SAT 93
--- NOTE | 2025-01-17 13:49 | Hospitalist Progress Note ---
Date of Service January 17, 2025 Assessment & Plan (1) Acute bacterial endocarditis: Plan Plan Keith Lopez is a 84 yo M resident of [facility], nonverbal, with h/o prior CVA, severe dementia, seizure, chronic indwelling martinez, recurrent UTIs, paroxysmal atrial tachycardia, bicuspid valve s/p aortic valve replacement/proximal aortic aneurysm repair, left hip replacement and recurrent infections. He presented with AMS and fever and was found to have recurrent E faecium bacteremia. Patient placed on DINING ROOM MANAGER on 01/16 Patient is On Comfort measures Only from today. Discussed with the family. Pain Control with Tylenol and Toradol #Suspected bacterial endocarditis #Enterococcus faecium bacteremia - Abx stopped on 01/16 after goals of care discussion - Continue comfort measures. Admission and Anticipated Discharge Date Admission Date: December 30, 2024 Supervising Physician Co-Signing Physician Notes I personally examined the patient and verified all brandon points of history and exam, discussed case, and agree with decision making with Dr Shalom Palma no meaningful HPI or ROS obtainable. updated family and answered questions to the best of my ability vitals noted nad heent nc at mmm breathing unlabored no accessory muscles good effort skin no rashes no pallor or icterus dementia, refractory endocarditis - comfort care. offered empathy and support. continue current care. discussed discharge planning and basing it off of what it takes for him to remain comfortable as well as family's level of comfort Subjective seem this am. No change on clinical status. Changed to DINING ROOM MANAGER yesterday. Appears comfortable. Daughter at bedside Review of Systems Review of Systems: As per HPI Physical Exam Physical Exam: General: Does not appear in acute distress. Results & Data Results & Data Vital Signs (Past 12 Hours) Vital Signs Temp Pulse Resp BP Pulse Ox O2 Del Method 01/17/25 09:32 36.9 C 99 H 18 100/71 93 Room Air Resident Activity Tracking Resident Involvement: Resident Care Provided Care Provided: Adult Hospital Medicine
--- NOTE | 2025-01-17 15:58 | Billing Data ---
Date of Service January 17, 2025 Coding Level of Care Code 78802 SUB INP/OBS CARE MIN
--- NOTE | 2025-01-18 13:22 | Hospitalist Progress Note ---
Date of Service January 18, 2025 Assessment & Plan (1) Acute bacterial endocarditis: Plan Plan Keith Lopez is a 84 yo M resident of [place], nonverbal, with h/o prior CVA, severe dementia, seizure, chronic indwelling martinez, recurrent UTIs, paroxysmal atrial tachycardia, bicuspid valve s/p aortic valve replacement/proximal aortic aneurysm repair, left hip replacement and recurrent infections. He presented with AMS and fever and was found to have recurrent E faecium bacteremia. Patient placed on ACCOUNTING/FINANCE TUTOR on 01/16 #Suspected bacterial endocarditis #Enterococcus faecium bacteremia - Abx stopped on 01/16 after goals of care discussion - Continue comfort measures. Admission and Anticipated Discharge Date Admission Date: December 30, 2024 Supervising Physician Co-Signing Physician Notes I personally examined the patient and verified all brandon points of history and exam, discussed case, and agree with decision making with Dr Shalom Palma no meaningful HPI or ROS obtainable. awake. eyes open, a little eye contact. vitals noted nad heent nc at mmm breathing unlabored no accessory muscles good effort skin no rashes no pallor or icterus dementia, refractory endocarditis - comfort care. offered empathy and support. continue current care. has been easy to keep comfortable, anticipate eventual return to SNF/hospice Subjective Assessed pt at bedside. Daugher at bedside. Apperas comfortable Review of Systems Review of Systems: As per HPI Physical Exam Physical Exam: General: Does not appear in acute distress. Resident Activity Tracking Resident Involvement: Resident Care Provided Care Provided: Adult Hospital Medicine
--- NOTE | 2025-01-18 13:45 | Billing Data ---
Date of Service January 18, 2025 Coding Level of Care Code 60874 SUB INP/OBS CARE
--- NOTE | 2025-01-19 10:31 | Palliative Care Progress Note ---
Date of Service January 19, 2025 Assessment & Plan (1) Palliative care by specialist: Plan: Palliative care will continue to follow for ongoing GOC discussions, potential IMPORT EXPORT MANAGER/EOL symptom mgmt and patient/family support. (2) POLST (Physician Orders for Life-Sustaining Treatment): Plan: POLST form on file that indicates DNR/DNI, limited additional interventions, no artificial nutrition or hydration, and ABx as needed. IMPORT EXPORT MANAGER POLST will need completed prior to discharge. (3) Counseling regarding goals of care: Plan: TODAY: Met with pt's daughter's at bedside, they expressed concern that pt has decreased UOP and less PO intake, more sleepy. Anticipatory guidance reinforced. Discussed changes pt may move through in the dying process including but not limited to sleeping more, disorientation when awake, restlessness, diminished senses/inability to respond to stimulus although ability to be aware of them r emains intact longer, and changes in body temperatures, skin changes/mottling/cyanosis, respiratory pattern changes, and oral secretions. Family verbalized understanding. The goal is to assure a peaceful . Pt remains on IMPORT EXPORT MANAGER with minimal need for PRN medications. 01/17: Met with pt's daughters outside pt's room. Both expressed concern about plan for discharge to [facility] for ongoing hospice care. Renita shared that the pt has only off of IV antibiotics for less than 24hrs and she is concerned that he may decompensate quickly. She has requested that we observe pt longer as she has been told by all teams that he is likely to become septic and decompensate quickly. She shared that all family has been through to visit pt and they are surprised that he would be discharged back to [facility] so soon. We discussed criteria for GIP hospice care and that pt has minimal need for comfort medications with VSS so does not currently qualify for GIP. I did share that I believe that prognosis is days to weeks at best given his persistent positive blood cultures despite aggressive IV ABx therapy. Discussed that the timng of is inprecise and often difficult to predict, but as time gets shorter there are often predictable signs of imminent . If pt transitions to active dying it would be sensible for him to remain hospitalized, particularly if he has hemodynamic decompensation. Renita shared that she is pleased with pt's level of comfort and continues to encourage avoidance of sedating agents as long as he remains comfortable with tylenol/toradol combo. 01/14: Met with pt's daughter Renita at bedside from 12:30 - 13:00. She expressed concern that pt is more lethargic and difficult to awaken for meals today after one dose of ativan overnight. She is very supportive of the patient and wants to assure his comfort, but feels that he appears to be very relaxed and comfortable after each IV tylenol administration. Renita shared that they feel pt is able to understand more than he can express, and although she is concerned anxiety, she would like non-pharmacologic means of anxiolysis exhausted prior to medication administration. She requests that any sedating medications be avoided and NSAIDs be optimized prior to any opiate or benzo administration. This is a reasonable request and medically appropriate given pt's age and underlying dementia. We discussed possible addition of alternative NSAIDs for better control of pt's chronic back pain. I saw pt about one hour after tylenol administration and he appeared to be resting comfortably. He is subjectively more lethargic today (last ativan dose was 10hr prior to my assessment). Plan remains to be transition to IMPORT EXPORT MANAGER once all family has arrived and had opportunity to visit with pt. Daughter is arriving this evening and pt's son in law and grand children will be arriving over weekend. Renita said she will let attending team know when they are ready for IMPORT EXPORT MANAGER, she understands that if pt remains stable after transition that he may be discharged back to SNF for ongoing hospice care. We did discuss possible GIP hospice if pt decompensates or appears to be actively dying. 01/13: attending team requests palliative reengage with pt/family given persistent bacteremia despite aggressive ABx. Lengthy GOC conversation with pt's spouse and daughter Renita. Family considering transition to IMPORT EXPORT MANAGER, but will await results of most recent blood culture and arrival of pt's other daughter from [place], she is expected on 01/15. 01/04: Renita at bedside this morning. Discussed GOC and reviewed previous discussions with her. questions encouraged and answered. Renita confirmed plan for completion of current course of IV Abx per ID recs and then transition to oral ABx prophylaxis and discharge to LTC. She reinforced that for now the pt will remain DNR/DNI, but continue all other life prolonging treatments. 01/03/25: [facility] discussion held with Roxana and Renita, topics discussed in layman's terms included (not limited to) pt's current hospital course, comorbidities, baseline dementia, frequent admissions for bacteremia without possibility of source control and deconditioning of chronic illness and immobility. We discussed how all these factors may work against pt in his recovery from current and future infections/sepsis. Spent a substantial amount of time discussing the progressively debilitating nature of dementia. Explained that dementia is incurable and irreversible, and can include progressive/worsening memory loss, confusion, language difficulties/lack of comprehension skills/loss of verbal skills eventually, mood changes, impaired judgment, trouble with motor skills/coordination/balance issues, visual and spatial problems, hallucinations, and personality changes. The rate of progression in mixed dementia can vary widely from person to person. Factors such as the types of dementia involved, overall health, and genetics can influence the speed of progression. Some individuals experience a more gradual decline, while others may progress more rapidly through the stages. We discussed and differentiated dementia from delirium and helped family understand that they can co-exist. I reviewed Dementia is a terminal illness. Aggressive medical treatment for patients with advanced dementia is often inappropriate for medical reasons, has a low rate of success, and can have negative outcomes that hasten functional decline and . ([place] [employer] Ethics Committee and Clinical Practice and Models of Care Committee. J Am Geriatr Soc. 2014 Aug;62(8):1590-3 and Terrence SL, Zohaib JM, Kim SC, Rakan V. A national study of the location of for older persons with dementia. J Am Geriatr Soc 2005; 53(2):299-305.). Renita identified the patient as in stage 5 bordering on 6 in his dementia, although she did admit that here in the hospital he appear to be Stage 6. We discussed that in late stages of dementia, poor PO intake and decreased mobility puts patient's at higher risk of injury and infection but also makes recovery of these insults more difficult resulting in frequent ED visits and admissions. We discussed the utilization of hospice services in stages 6 and 7 to optimize patient comfort and focus on quality of life vs quantity of days. Both Renita and Roxana shared that they are thankful for the information and they realize that they need to start focus on where the patient would draw the line on continuing to prolong life. Both adamantly stated that they would not pursue a PEG tube or any "forced feedings" because these are not c/w pt wishes. They shared that they have been in touch with hospice team at [facility] and at this time they would like to start making plans toward transition to hospice care for the future. They shared that they would like to allow the pt to transition to oral ABx and see if he can have some quality of life before he again develops septicemia. (4) Comfort measures only status: Plan: transitioned to IMPORT EXPORT MANAGER on 01/16/25. Plan IMPORT EXPORT MANAGER Admission and Anticipated Discharge Date Admission Date: December 30, 2024 Subjective Assessed pt at bedside, he was transitioned to IMPORT EXPORT MANAGER on 01/16/25. Pt was sleeping, did not attempt to awaken in concert with comfort directed care. He appears comfortable, with minimal need for PRN medications to assure comfort. Respiratory effort normal. Daughters are at bedside. Review of Systems Review of Systems: Unobtainable due to cognitive status Physical Exam Physical Exam: sleeping, snoring but in NAD on nasal canula. Constitutional: + ill appearing, + thin and + frail appe aring; no acute distress Eyes: PERRL, conjunctivae normal, anicteric sclerae Neck: trachea midline, no thyromegaly Respiratory: normal respiratory effort, lungs clear to auscultation Cardiovascular: RRR, no murmur, no edema Gastrointestinal (Abdomen): normal bowel sounds, soft, nontender, no hepatosplenomegaly Psychiatric: Orientation: alert and oriented to person Results & Data Vital Signs (Past 12 Hours) Vital Signs Temp 36.9 C 01/17/25 09:32 Pulse 99 H 01/17/25 09:32 Resp 18 01/17/25 09:32 BP 100/71 01/17/25 09:32 Pulse Ox 93 01/17/25 09:32 O2 Del Method Room Air 01/18/25 19:20 O2 Flow Rate 2 01/08/25 15:39 Intake & Output 01/18/25 01/19/25 01/19/25 18:59 06:59 18:59 Intake Total 100 / 300 200 / 300 Output Total 403 401 / 403 Balance 98 / -103 -201 / -103 Intake: IV 100 / 300 200 / 300 Acetaminophen 1,000 mg In 100 100 / 300 200 / 300 ml @ 400 mls/hr IV Q8H [facility] Rx#: [id number] Output: Urine Amount (Catheter) 400 / 400 [place]/Indwelling 400 / 400 # Bowel Movements 2 / 3 1 / 3 Other: Other Intake Source Oral hygiene provided. Laboratory Results No further labs or diagnostics in concert with comfort directed care. Diagnostic Findings No further labs or diagnostics in concert with comfort directed care. Medications Administered Current Inpatient Medications Atropine Sulfate (Atropine Sulfate 1% Op Soln 5 Ml Btl) 4 drops SL Q1H PRN PRN Reason: Secretions or pulm congestion Stop: 02/15/25 12:24 Chlorpromazine HCl (Chlorpromazine Hcl 25 Mg Tab) 25 mg PO Q6H PRN PRN Reason: Hiccups Stop: 02/15/25 12:24 Glycopyrrolate (Glycopyrrolate 0.2 Mg/Ml Vial) 0.4 mg IV Q4H PRN PRN Reason: Rattling Secretions or Pulm Congestion Stop: 02/15/25 12:24 Hyoscyamine (Hyoscyamine Sulfate 0.125 Mg Tab) 0.125 mg SL Q4H PRN PRN Reason: Secretions or Pulm Congestion Stop: 02/15/25 12:24 Acetaminophen (Ofirmev) 1,000 mg in 100 mls @ 400 mls/hr IV Q8H [facility] Stop: 01/20/25 13:59 Last Infusion: 01/19/25 03:20 Dose: Infused Ketorolac Tromethamine (Ketorolac Tromethamine 15 Mg/Ml Vial) 15 mg IV Q6H PRN PRN Reason: Pain Stop: 01/19/25 20:10 Last Admin: 01/18/25 08:20 Dose: 15 mg Lidocaine (Lidocaine 5% 1 Patch) 1 patch TD QAM BRENDA Stop: 02/04/25 08:59 Last Admin: 01/19/25 09:13 Dose: 1 patch Lorazepam (Lorazepam 2 Mg/1 Ml Vial) 0.5 mg IV Q6H PRN PRN Reason: Anxiety/Agitation Stop: 02/01/25 14:43 Last Admin: 01/17/25 01:37 Dose: 0.5 mg Lorazepam (Lorazepam 2 Mg/1 Ml Vial) 0.5 mg IV Q4H PRN PRN Reason: Anxiety/Agitation Stop: 02/15/25 12:24 Last Admin: 01/19/25 06:04 Dose: 0.5 mg Ondansetron HCl (Ondansetron Inj 2 Mg/Ml 2 Ml Vial) 4 mg IV Q6H PRN PRN Reason: Nausea Stop: 01/30/25 00:21 Ondansetron HCl (Ondansetron Inj 2 Mg/Ml 2 Ml Vial) 4 mg IV Q4H PRN PRN Reason: Nausea &/or Vomiting Stop: 02/15/25 12:24 Pantoprazole Sodium (Pantoprazole 40 Mg Tab) 40 mg PO QAM BRENDA Stop: 02/01/25 08:59 Last Admin: 01/18/25 08:23 Dose: 40 mg PG Care Time/CCT Total # of Minutes Spent Total Time Spent with Patient: Total time spent is greater than 50% in coordination of care (as documented) at patient's floor/unit and/or counseling patient: Coding Diagnoses Palliative care by specialist Z51.5 POLST (Physician Orders for Life-Sustaining Treatment) Z78.9 Counseling regarding goals of care Z71.89 Comfort measures only status Z51.5
--- NOTE | 2025-01-19 11:25 | Hospitalist Progress Note ---
Date of Service January 19, 2025 Assessment & Plan (1) Acute bacterial endocarditis: Plan Plan Keith Lopez is a 84 yo M resident of [facility], nonverbal, with h/o prior CVA, severe dementia, seizure, chronic indwelling martinez, recurrent UTIs, paroxysmal atrial tachycardia, bicuspid valve s/p aortic valve replacement/proximal aortic aneurysm repair, left hip replacement and recurrent infections. He presented with AMS and fever and was found to have recurrent E faecium bacteremia. Patient placed on DISTANCE LEARNING TECHNICIAN on 01/16 #Suspected bacterial endocarditis #Enterococcus faecium bacteremia - Abx stopped on 01/16 after goals of care discussion - Continue comfort measures. Admission and Anticipated Discharge Date Admission Date: December 30, 2024 Subjective seen this AM. Daughter at bedside. Appears comfortable. Review of Systems Review of Systems: As per HPI Physical Exam Physical Exam: General: Does not appear in acute distress.
--- NOTE | 2025-01-19 15:22 | Discharge Summary ---
Date of Service January 19, 2025 Admission HPI Per Admitting Provider Pt is an 84 yo male who lives presented to ED via ambulance from [facility] for AMS and unresponsive. 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 Pt has had recent hospital admissions for recurrent bacteremic infections and recently finished a long course of IV antibiotics. At bedside is pt's and daughter who provide pt history and recent events. Pt had been doing well from a cognitive and health stand point per daughter after completing his last round of IV antibiotics. Pt follows with ID in outpatient setting and was prescribed omadacycline prophylactically, which was to start after finishing IV course. However, pt was unable to obtain new med due insurance coverage until 12/26/24. Per daughter, patient had diarrhea last week which seemed to coincide with other residents from his facility having mild GI illness. This week diarrhea had cleared up, but pt had more constipating symptoms despite good appetite and eating most of his meals. This morning, facility providers noted a 101 F fever. He began complaining of more intense low back pain and yelling out due to pain. Pt takes scheduled tylenol for pain. At dinner, pt's daughter noted that pt was shaking uncontrollable and his eyes were rolling to the back of his head. He was not responding or following commands and seemed to be in and out of consciousness and no longer at his baseline cognition. Pt's daughter states that testing had been done at his facility including inflammatory markers, UA, and CBC. She states she thinks his inflammatory marker were elevated and a UTI was found. Upon arrival at ED, pt was unresponsive and not following commands. Pt has decreased respiration rate. Unable to assess NIHSS. Pt's dtr and deny any recent cough, congestion, SOB, c/o chest pain, abdominal pain, nausea, or vomiting. Pressure ulcer at his sacrum has healed per dtr, but patient has had bloody discharge from the tip of his penis due to skin breakdown related to tubing from martinez catheter. Principal Diagnosis Advanced dementia Endocartiits Discharge Exam General: asleep, not apparent distress Discharge Data Allergies Allergy/AdvReac Type Severity Reaction Status Date / Time codeine AdvReac Intermediate GI SYMPTOMS Verified 10/26/24 15:47 Opioids - Morphine Analogues AdvReac Intermediate Vomiting Verified 10/26/24 15:47 Opioids-Meperidine and AdvReac Intermediate Vomiting Verified 10/26/24 15:47 Related Opioids-Methadone and Related AdvReac Intermediate Vomiting Verified 10/26/24 15:47 oxycodone [From Percocet] AdvReac Intermediate n/v Verified 10/26/24 15:47 Anesthesia AdvReac Severe Vomiting Uncoded 10/26/24 15:47 Consultations 12/30/24 21:27 ED Decision to Admit Stat 01/01/25 12:10 Consult Cardiology Routine Consult Infectious Diseases Routine 01/02/25 14:18 Consult Palliative Care Routine Ordered Studies 12/30/24 19:55 CT angio head w con Stat CT angio neck with con Stat CT head/brain wo con Stat 12/30/24 20:01 CT abd pelvis IV con only Stat CT angio chest PE protocol Stat 12/30/24 22:37 MRI Brain [MR brain seizure wo/w con] Routine 01/01/25 12:10 MRI Lumbar Spine [MR lumbar spine wo con] Urgent Hospital Course (1) Acute bacterial endocarditis: Plan mariaa Lopez is a 84 yo M resident of [place], nonverbal, with h/o prior CVA, severe dementia, seizure, chronic indwelling martinez, recurrent UTIs, paroxysmal atrial tachycardia, bicuspid valve s/p aortic valve replacement/proximal aortic aneurysm repair, left hip replacement and recurrent infections. He presented with AMS and fever and was found to have recurrent E faecium bacteremia. Patient placed on SALES PROMOTION OFFICER on 01/16 #Suspected bacterial endocarditis #Enterococcus faecium bacteremia - Abx stopped on 01/16 after goals of care discussion - Continue comfort measures. Total Time Total Time Spent Total Time Spent (In Minutes): <30 Discharge Plan Discharge Items Patient Disposition: Hospice - Medical Facility Reason For Visit: METABOLIC ENCEPHALOPATHY Discharge Diagnosis: Advanced Dementia Endocarditis Condition on Discharge: Fair Activity: Per Instructions section Non-emergency contact: Primary Care Provider Call non-emergency contact if: you have any medication questions Follow-up/Referrals: Shannan Miranda DO [Primary Care Provider] - Diet: Regular Addtl Attending Provider Instructions: Mariaa Lopez is a 84 yo M resident of [place], nonverbal, with h/o prior CVA, severe dementia, seizure, chronic indwelling martinez, recurrent UTIs, paroxysmal atrial tachycardia, bicuspid valve s/p aortic valve replacement/proximal aortic aneurysm repair, left hip replacement and recurrent infections. He presented with AMS and fever and was found to have recurrent E faecium bacteremia. Patient placed on SALES PROMOTION OFFICER on 01/16 #Suspected bacterial endocarditis #Enterococcus faecium bacteremia - Abx stopped on 01/16 after goals of care discussion - Continue comfort measures. Pending Studies at Discharge: No Stand-Alone Forms: My [facility] Skilled Items Patient informed of condition?: Yes (advanced dementia) DNR: Yes Discharge Level of Care: Skilled Communicable Disease: No Discharge Prognosis: Stable Lines: None Urinary Catheter: No Medications and DC Order Prescriptions: New glycopyrrolate 0.2 mg/mL Solution 0.4 mg IV Q4H PRN (Reason: secretions) Qty: 25 0RF hyoscyamine sulfate [Levsin] 0.125 mg Tablet 0.125 mg sublingual Q4H PRN (Reason: dyspepsia) Qty: 10 0RF ketorolac 15 mg/mL Solution 15 mg IV Q6H PRN (Reason: pain) 10 Days Qty: 10 0RF pantoprazole 40 mg Tablet,Delayed Release (Dr/Ec) 40 mg PO QAM Qty: 10 0RF chlorpromazine 25 mg Tablet 25 mg PO Q6H PRN (Reason: nausea) 30 Days Qty: 10 0RF lidocaine 5 % Adhesive Patch,Medicated 1 patch transdermal QAM Qty: 15 0RF atropine 1 % Drops 4 drp sublingual Q1H PRN (Reason: secretions) 10 Days Qty: 2 0RF ondansetron HCl (PF) 4 mg/2 mL Solution 4 mg IV Q4H PRN (Reason: nausea) 10 Days Qty: 20 0RF Discontinued mirabegron [Myrbetriq] 25 mg tablet extended release 24 hr 25 mg PO QAM acetaminophen [Tylenol] 325 mg Tablet 650 mg PO Q4H MDD 3 GRAMS/24 HOURS PRN (Reason: PAIN/FEVER >100F) Rx Instructions: be aware of routine order acetaminophen [Tylenol] 325 mg Tablet 650 mg PO TID MDD 3 GRAMS/24 HOURS lidocaine 4 % Adhesive Patch,Medicated 1 patch TOPICAL DAILY Rx Instructions: APPLY TO most painful area of baqck, REMOVE AFTER 12 HOURS Lactobacillus rhamnosus GG 10 billion cell Capsule 1 cap PO QAM folic acid 1 mg tablet 1 mg PO QAM 30 Days Qty: 30 5RF Multiple Vitamin-Minerals Tablet 1 tab PO DAILY Qty: 30 0RF cranberry 500 mg Capsule 500 mg PO QDD Rx Instructions: administer with meal aspirin [Aspirin Child] 81 mg Tablet,Chewable 81 mg PO QAM pantoprazole [Protonix] 40 mg tablet,delayed release (DR/EC) 40 mg PO QAM cholecalciferol (vitamin D3) [Vitamin D3] 25 mcg (1,000 unit) tablet 25 mcg PO QAM ferrous sulfate 325 mg (65 mg iron) Tablet 325 mg PO BID Rx Instructions: give with food simethicone 80 mg Tablet,Chewable 80 mg PO Q6 PRN (Reason: Abdominal Distention) Nuzyra 150 mg tablet 300 mg PO QAM Rx Instructions: take on an empty stomach 2 hours prior to food for 89 days 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 NEEDED PRN (Reason: incontinent episodes) menthol-zinc oxide [Calmoseptine] 0.44-20.6 % Ointment 1 applic TOPICAL QS Rx Instructions: apply to buttocks and scrotum every shift for excoriation Discharge Orders: Discharge Order (Routine); Ordered 01/19/25 Ordered By: Shima Palma Admission Data Admit Date/Time: 12/30/24 22:31 Attending Provider: Messi Schultz Admit Provider: Lola Gastelum Primary Care Provider: Shannan Miranda Other Providers: Aguila Caldwell [place]; Renita Cain; Geovanni Lara; Palomo Bueno; Luca Patel; Vikas Lynn; Jeramie Lunsford Jr; Luis A Ang; Linda Sandhu; Zahraa Sparks; Felix Meraz; Felix Aylaa; Mariposa Fernando; Will Juárez; Nolvia Gr; Will Humphrey; Venu Flores; Jose Ramon Peguero; Mychal Shoemaker; Hector Nur; Tyson Hopkins; Aleyda Lujan; Shawna,Jona Healt Other Interventions: Discharge Summary Assessment (RN) Last Done: 01/19/25 15:35 Supervising Physician Co-Signing Physician Notes I personally examined the patient and verified all brandon points of history and exam, discussed case, and agree with decision making with Dr Shalom Palma no meaningful HPI or ROS obtainable. family comfortable with return to SNF vitals noted nad heent nc at mmm breathing unlabored no accessory muscles good effort skin no rashes no pallor or icterus dementia, refractory endocarditis - comfort care. offered empathy and support. safe/stable for return to SNF - hospice Resident Activity Tracking Resident Involvement: Resident Care Provided Care Provided: Adult Hospital Medicine
--- NOTE | 2025-01-19 18:07 | Billing Data ---
Date of Service January 19, 2025 Coding Level of Care Code 79793 IN/OBS DISCH 30 MIN/LESS
--- NOTE | 2025-01-19 18:08 | Billing Data ---
Date of Service January 19, 2025 Coding Level of Care Code 82564 IN/OBS DISCH 30 MIN/LESS
== END 2025-01-19 16:02 | disposition hospice, inpatient (51) | DRG 288 ==
LOC: ED 19:46 → 2E 22:31 → SUATTDRO 22:31 → 2E 23:05 → 3E 01-12 08:17